=== PATIENT | female | born 1940 | race Caucasian/White ===

== ENCOUNTER → 2020-01-08 08:51 | Outpatient (CLI) | payer MEDICARE, OTHER, SELFPAY ==
[2019-12-26 15:52] VITALS: BMI 29.5
== END ==
PROVIDERS: PCP Internal Medicine; Referring Provider Internal Medicine Cardiovascular Disease; Visit Provider Internal Medicine Cardiovascular Disease
DX: R06.02 Shortness of breath (principal); R53.83 Other fatigue; R00.2 Palpitations; I10 Essential (primary) hypertension
CPT/HCPCS: 93225; 93226

== ENCOUNTER → 2020-01-10 06:50 | Outpatient (CLI) | payer MEDICARE, OTHER, SELFPAY ==
[2019-12-26 15:52] VITALS: BMI 29.5
--- NOTE | 2020-01-10 13:14 | STRESSREP ---
Stress Test Report Exercise myocardial perfusion stress test. 79-year-old lady with a history of chest pain. Stress protocol: Resting EKG demonstrates normal sinus rhythm with a rate of 83 bpm normal intervals are noted resting blood pressure is 172/90 mmHg. The patient exercised according to regular Dwayne protocol for a total duration of 5 minutes. The maximum heart rate attained was 134 bpm which was 94% of maximum predicted heart rate the maximum workload was 7 metabolic equivalents. At rest there were no ST or T wave changes noted suggest ischemia at peak exercise upsloping ST changes were noted with intermediate criteria for ischemia. No clinical angina was noted the test was discontinued due to leg discomfort. The peak blood pressure was 172/90 mmHg. Myocardial perfusion protocol. 11.1 mCi of technetium 99m sestamibi was injected at rest. The patient exercised according to regular Dwayne protocol for a total duration of 5 minutes. At peak exercise 33.4 mCi of technetium 99m sestamibi was injected stress images were obtained stress and rest images were reconstructed and compared in the short axis vertical and horizontal long axis. Gated images were also obtained per Perfusion SPECT analysis: Review of the stress images demonstrate normal uptake of tracer noted in all areas of the myocardium. The resting images similarly demonstrate normal uptake of tracer noted in all areas of the myocardium. No reversibility is noted suggest ischemia no previous infarct is noted. Gated SPECT analysis: The gated ejection fraction is noted to be 74%. Conclusion: Normal exercise myocardial perfusion stress test at a moderate workload. Good functional capacity. No ischemia noted.
== END ==
PROVIDERS: PCP Internal Medicine; Referring Provider Internal Medicine Cardiovascular Disease; Visit Provider Internal Medicine Cardiovascular Disease
DX: R53.83 Other fatigue (principal); R06.00 Dyspnea, unspecified
CPT/HCPCS: 78452; 93017; A9500; A4216

== ENCOUNTER → 2021-12-21 | Outpatient (CLI) | payer MEDICARE, SELFPAY ==
--- NOTE | 2021-12-21 09:43 | RAD_ITS ---
STUDY: X-RAY - ABDOMEN/PELVIS REASON FOR EXAM: Female, 81 years old. Constipation TECHNIQUE: Two AP supine views of the abdomen and pelvis. COMPARISON: None. FINDINGS: Normal visualized lung bases. There is a moderate amount of colonic fecal material. There is no demonstrated free abdominal air. The visualized liver, spleen and kidneys are grossly normal in size and morphology. Peripherally calcified lesion in the left lower quadrant. Normal soft tissue structures. Normal visualized osseous structures. Sitzmarks noted from a previous bowel motility study RAD/Abdomen Single View IMPRESSION: No acute findings, moderate retained stool Electronically Signed: Bernardo Multani MD at 13:35 EDT ,
== END | disposition home or self-care (01) ==
LOC: RAD 09:26
PROVIDERS: PCP Internal Medicine; Referring Provider Internal Medicine Gastroenterology; Visit Provider Internal Medicine Gastroenterology
DX: K59.00 Constipation, unspecified (principal)
CPT/HCPCS: 74018

== ENCOUNTER → 2021-12-23 | Outpatient (CLI) | payer MEDICARE, SELFPAY ==
--- NOTE | 2021-12-23 08:31 | RAD_ITS ---
STUDY: X-RAY - ABDOMEN/PELVIS REASON FOR EXAM: Female, 81 years old. STIZ day 5 TECHNIQUE: Single AP view of the abdomen / pelvis. COMPARISON: None. FINDINGS: There are 6 Sitzmarks still visualized. On the previous study there were 18. On current study there appears to be one within the cecum, 2 within the mid descending colon and 3 within the sigmoid colon. There is an abundance of fecal material throughout the colon. There is no demonstrated free abdominal air. The visualized liver, spleen and kidneys are grossly normal in size and morphology. Stable peripherally calcified entity in the left lower quadrant Normal soft tissue structures. There are diffuse degenerative changes of the visualized lumbar spine. RAD/Abdomen Single View IMPRESSION: On the previous study there were 18 Sitzmarks still present. On current study there are now 6, location as described above. Retained stool throughout the majority of the colon Degenerative bony changes Electronically Signed: Bernardo Multani MD at 14:51 EDT ,
== END | disposition home or self-care (01) ==
LOC: RAD 08:30
PROVIDERS: PCP Internal Medicine; Referring Provider Internal Medicine Gastroenterology; Visit Provider Internal Medicine Gastroenterology
DX: K59.00 Constipation, unspecified (principal)
CPT/HCPCS: 74018

== ENCOUNTER → 2022-03-04 | Outpatient (CLI) | payer MEDICARE, SELFPAY | END | disposition home or self-care (01) | LOC: LABSPEC 11:51 | PROVIDERS: PCP Internal Medicine; Referring Provider Urology; Visit Provider Urology | DX: N39.0 Urinary tract infection, site not specified (principal) | CPT/HCPCS: 87086; 87088 ==

== ENCOUNTER → 2022-08-30 | Outpatient (CLI) | payer BC, SELFPAY ==
--- NOTE | 2022-08-30 11:53 | BRBX_PTH ---
PATIENT: AVA DONALDSON LOC: [facility] U#:[id number] AGE/SX: 81/F ROOM: RE08/30/[address]: Dr. Miah Mart MD : 1940 BED: DIS: 08/30/2022 SPEC #: [id number] RECD: 08/30/22 12:55 STATUS: IAN REThalia #: [id number] TAMELA: 08/30/22 11:[address]: Miah Mart DEPT: SURGICAL PATHOLOGY RECD BY: Iwona Osuna ENTERED: 08/30/22 13:17 SP TYPE: BREAST BX OTHR DR: Dr. Chetna Cazares MD Tissues: Left breast, NOS Procedures: Surgery Specimen Level IV HEADER OPERATION: Left breast stereotactic needle core biopsy PRE-OP DIAGNOSIS: Left breast upper inner quadrant calcifications TISSUE SUBMITTED: Left breast ISCHEMIC TIME: 2 minutes FIXATION TIME: 7.5 hours MICROSCOPIC DIAGNOSIS Left breast, stereotactic biopsy: Fibrosis, benign histiocytic proliferation and associated clustered banal microcalcifications. Fibrocystic change with associated microcalcifications. Focal intraductal hyperplasia without atypia. Minute fragment of skin with no pathologic change. No evidence of malignancy. AM:tanya 08/31/2022 MICROSCOPIC DESCRIPTION Slides are reviewed. GROSS DESCRIPTION Received in fixative is one container labeled with the patient's name and designated left breast. The specimen consists of multiple elongated fragments of fleming-yellow fibroadipose tissue that in aggregate measure 5.0 x 2.5 x 0.3 cm. The entire specimen is submitted in two cassettes. / SJ:tanya 08/30/2022 TC:5 CPT: 25029
--- NOTE | 2022-09-20 12:13 | PCM.OPRPT ---
Problems Associated Problem List Diagnoses (1) Breast calcifications: Report of Operation Date of Procedure: 08/30/22 Pre-Operative Diagnosis: Microcalcifications left breast Post-Operative Diagnosis: Same Surgery/Procedure Performed:: Left stereotactic breast biopsy Surgeon: Miah Mart Type of Anesthesia: Local Description of Procedure: Patient was brought into the mammography unit. Placed in the supine position on the fissure table. Left breast was brought down through the opening. A cc view was obtained. Microcalcifications were identified. ?15 degree views were obtained. I targeted the microcalcifications. I prepped the breast with Betadine. Skin kostas was made. Needle was placed in the prefire position. 2 more stereo views were obtained. The microcalcifications were adequately targeted. I fired the needle. Circumferential 360 degree biopsies were obtained. I x-rayed my specimen. Microcalcifications were identified. I backed the needle off 7 mm and placed a clip. Postoperative films showed the clip to be in good placement. Steri-Strips were applied sterile dressings were applied and the patient tolerated the procedure well. Admit VTE Documentation VTE Present on Admission: No VTE Mechan Device Prophylaxis: None VTE Pharm Prophylaxis ordered?: No
== END | disposition home or self-care (01) ==
PROVIDERS: PCP Internal Medicine; Referring Provider Surgery; Visit Provider Surgery
DX: R92.1 Mammographic calcification found on diagnostic imaging of breast (principal); N62 Hypertrophy of breast
CPT/HCPCS: 19081; 88305

== ENCOUNTER → 2024-02-17 | Outpatient (CLI) | payer MEDICARE, SELFPAY ==
--- NOTE | 2024-02-17 10:33 | RAD_ITS ---
HISTORY: INFLAMMATORY POLYARTHROPATHY. TECHNIQUE: XR Pelvis 1 or 2 Views. COMPARISON: 12/21/2021. FINDINGS: OSSEOUS STRUCTURES: No acute displaced fracture identified. Note that overlapping bowel shadows may obscure osseous detail. Mineralization unremarkable. JOINT SPACES: No dislocation. Mild degenerative changes of the hips. SOFT TISSUES: Chronic calcified structure in the left lower quadrant. Chronic ossification inferior to the left initial tuberosity. RAD/Pelvis 1 or 2 Views IMPRESSION: No acute displaced fracture or dislocation identified. Electronically Signed: Lynne Saini MD at 15:55 EDT ,
[2024-02-17 12:29] LABS: Erythrocyte Sedimentation Rate 9 mm/hr (0-30)
[2024-02-17 12:32] LABS: Absolute Lymphocyte Count 0.99 X10^3/uL (0.83-4.51); Absolute Neutrophil Count 3.8 X10^3/uL (2.0-7.7); Basophil# 0.05 X10^3/uL; Basophil% 0.9 % (0-1); Eosinophils% 5.2 % (0-5); Hematocrit 45.5 % (37-47); Lymphocyte # 0.99 X10^3/ul (0.83-4.51); Lymphocyte % 17.1 % (19-41); Mean Corpuscular Hgb 28.4 pg (27.0-32.0); Mean Platelet Vol. 11.1 fl (6.2-12.0); Monocyte% 10.4 % (0-10); NRBC Flagged by Analyzer 0 % (0-5); Neutrophil # 3.79 X10^3/uL (2.7-7.7); Neutrophil % 65.4 % (47-70); Platelet Count 197 K/mm3 (150-450); RBC Distribution Width CV 13.5 % (11.6-14.6); Red Blood Count 5.29 M/mm3 (4.2-5.4); White Blood Count 5.8 K/mm3 (4.4-11.0)
[2024-02-17 13:24] LABS: AST(SGOT) 22 U/L (15-37); Alanine Aminotransfer ALT/SGPT 21 U/L (13-56); Albumin, Serum 3.9 g/dL (3.2-5.0); Alkaline Phosphatase 53 U/L (45-117); Anion Gap 7 (5-15); BUN 17 mg/dL (7-18); BUN/Creat Ratio 18.1 RATIO (10-20); CRP < 2.90 mg/L (0.0-3.0); Calcium,Total 9.9 mg/dL (8.5-10.1); Chloride 99 mmol/L (98-107); Creatinine, Serum 0.94 mg/dL (0.55-1.02); EST Glomerular Filtration Rate 61 mL/min (>60); Est Glom Filt Rate - Afr Amer 73 mL/min (>60); Globulin 4.1 g/dL (2.2-4.2); Glucose 87 mg/dL (74-106); Potassium 3.8 mmol/L (3.5-5.1); Rheumatoid Factor < 10.0 IU/mL (<15); Sodium Level 133 mmol/L (136-145)
[2024-02-17 13:32] LABS: Hepatitis B Surface Antibody Non-Reactive; Hepatitis B Surface Antigen Non-Reactive (Nonreactive); Hepatitis C Antibody Non-Reactive (Nonreactive)
[2024-02-18 14:09] LABS: CCP IgG Antibodies 5 units (0-19)
[2024-02-21 11:59] LABS: ANTINUCLEAR ANTIBODIES DIRECT Negative (Negative)
== END | disposition home or self-care (01) ==
LOC: MTLAB 10:32
PROVIDERS: PCP Internal Medicine; Referring Provider Internal Medicine Rheumatology; Visit Provider Internal Medicine Rheumatology
DX: M06.4 Inflammatory polyarthropathy (principal); M19.041 Primary osteoarthritis, right hand; M19.042 Primary osteoarthritis, left hand
CPT/HCPCS: 36415; 72170; 80053; 85025; 85652; 86038; 86140; 86200; 86431; 86706; 86803; 87340

== ENCOUNTER → 2024-03-27 | Outpatient (CLI) | payer MEDICARE, SELFPAY ==
[2024-03-27 12:12] LABS: Absolute Neutrophil Count 3.2 X10^3/uL (2.0-7.7); Basophil# 0.05 X10^3/uL; Eosinophil# 0.25 X10^3/uL; Eosinophils% 4.9 % (0-5); Hematocrit 42.2 % (37-47); Hemoglobin 14.3 g/dL (12.0-15.0); Lymphocyte % 19.6 % (19-41); Mean Corp Hgb Conc 33.9 g/dL (32-36); Mean Corpuscular Hgb 28.9 pg (27.0-32.0); Mean Corpuscular Volume 85.3 fL (81-99); Mean Platelet Vol. 11.1 fl (6.2-12.0); Monocyte# 0.57 X10^3/uL; Monocyte% 11.2 % (0-10); NRBC Flagged by Analyzer 0 % (0-5); Neutrophil # 3.19 X10^3/uL (2.7-7.7); Neutrophil % 62.7 % (47-70); Platelet Count 171 K/mm3 (150-450); RBC Distribution Width CV 13.9 % (11.6-14.6); RBC Distribution Width SD 42.6 fl (35.1-43.9); Red Blood Count 4.95 M/mm3 (4.2-5.4); White Blood Count 5.1 K/mm3 (4.4-11.0)
[2024-03-27 12:58] LABS: AST(SGOT) 23 U/L (15-37); Alanine Aminotransfer ALT/SGPT 20 U/L (13-56); Albumin, Serum 3.6 g/dL (3.2-5.0); Alkaline Phosphatase 43 U/L (45-117); Anion Gap 8 (5-15); BUN 15 mg/dL (7-18); BUN/Creat Ratio 16.3 RATIO (10-20); Calcium,Total 9.8 mg/dL (8.5-10.1); Chloride 97 mmol/L (98-107); Creatinine, Serum 0.92 mg/dL (0.55-1.02); EST Glomerular Filtration Rate 62 mL/min (>60); Est Glom Filt Rate - Afr Amer 75 mL/min (>60); Globulin 3.5 g/dL (2.2-4.2); Glucose 108 mg/dL (74-106); Protein, Total 7.1 g/dL (6.4-8.2); Sodium Level 130 mmol/L (136-145)
== END | disposition home or self-care (01) ==
LOC: MTLAB 10:05
PROVIDERS: PCP Internal Medicine; Referring Provider Internal Medicine Rheumatology; Visit Provider Internal Medicine Rheumatology
DX: M06.4 Inflammatory polyarthropathy (principal); M19.041 Primary osteoarthritis, right hand; M19.042 Primary osteoarthritis, left hand; Z79.899 Other long term (current) drug therapy
CPT/HCPCS: 36415; 80053; 85025

== ENCOUNTER → 2024-05-25 | Outpatient (CLI) | payer MEDICARE, SELFPAY ==
[2024-05-25 15:22] LABS: Absolute Lymphocyte Count 0.86 X10^3/uL (0.83-4.51); Absolute Neutrophil Count 3.3 X10^3/uL (2.0-7.7); Basophil# 0.04 X10^3/uL; Basophil% 0.8 % (0-1); Eosinophil# 0.19 X10^3/uL; Eosinophils% 3.8 % (0-5); Hemoglobin 14.4 g/dL (12.0-15.0); Lymphocyte # 0.86 X10^3/ul (0.83-4.51); Mean Corp Hgb Conc 32.7 g/dL (32-36); Mean Corpuscular Hgb 29.3 pg (27.0-32.0); Mean Corpuscular Volume 89.4 fL (81-99); Mean Platelet Vol. 11.4 fl (6.2-12.0); Monocyte# 0.65 X10^3/uL; Monocyte% 12.8 % (0-10); NRBC Flagged by Analyzer 0 % (0-5); Neutrophil # 3.27 X10^3/uL (2.7-7.7); Neutrophil % 64.6 % (47-70); Platelet Count 196 K/mm3 (150-450); RBC Distribution Width SD 48.2 fl (35.1-43.9); Red Blood Count 4.92 M/mm3 (4.2-5.4); White Blood Count 5.1 K/mm3 (4.4-11.0)
[2024-05-25 15:47] LABS: ALB/GLOB Ratio 1.1 RATIO (0.9-2.4); AST(SGOT) 22 U/L (15-37); Alanine Aminotransfer ALT/SGPT 25 U/L (13-56); Albumin, Serum 3.9 g/dL (3.2-5.0); Alkaline Phosphatase 48 U/L (45-117); Anion Gap 6 (5-15); BUN 18 mg/dL (7-18); BUN/Creat Ratio 21.6 RATIO (10-20); Calcium,Total 9.9 mg/dL (8.5-10.1); Chloride 93 mmol/L (98-107); Creatinine, Serum 0.84 mg/dL (0.55-1.02); EST Glomerular Filtration Rate 69 mL/min (>60); Est Glom Filt Rate - Afr Amer 84 mL/min (>60); Globulin 3.7 g/dL (2.2-4.2); Glucose 88 mg/dL (74-106); Potassium 3.7 mmol/L (3.5-5.1); Protein, Total 7.6 g/dL (6.4-8.2); Sodium Level 128 mmol/L (136-145)
== END | disposition home or self-care (01) ==
LOC: MTLAB 11:28
PROVIDERS: PCP Internal Medicine; Referring Provider Internal Medicine Rheumatology; Visit Provider Internal Medicine Rheumatology
DX: M06.4 Inflammatory polyarthropathy (principal); Z79.899 Other long term (current) drug therapy
CPT/HCPCS: 36415; 80053; 85025

== ENCOUNTER 2024-05-30 09:17 | Day surgery (SDC) | payer MEDICARE, SELFPAY ==
[2024-05-30] VITALS (7 sets, daily range): BP systolic 116–157; BP diastolic 65–87; PULSE 72–85; RESP 16; TEMP 36.1–36.5; O2SAT 94–100; BMI 26.5
--- NOTE | 2024-05-30 09:36 | HP.PCM_ITS ---
History and Physical Date of Admission: 05/30/24 OV 04.20.24 Pt has a f/u today for rectal bleeding. Pt reports she has spotting blood today. States she has a hx of hemorrhoids. Has a BM daily. Last colonoscopy was in 2017. Takes Miralax, mineral oil, Citrucel, super greens daily and omeprazole daily. PFSH Medical History Multinodular thyroid Benign paroxysmal positional vertigo, bilateral Osteoarthritis DDD (degenerative disc disease) Vision loss Uterovaginal prolapse, incomplete Essential (primary) hypertension Hyperlipidemia Raynaud disease Meniere disease IBS (irritable bowel syndrome) GERD (gastroesophageal reflux disease) Diverticulosis Surgical History History of bunionectomy History of hysterectomy History of cholecystectomy History of carpal tunnel release Family History Mother HypertensionBrother HypertensionFather Heart disease Social History Smoking Status: Never smoker HPI HPI Chief Complaint: follow up for c/o rectal bleeding Details: AVA DONALDSON, is a 83 F who presents to the office today for FU and for complaints of bleeding per rectum. She reports noted hematochezia 3-4 weeks ago following a BM. She has noticed rectal bleeding while in the shower as well. PCP checked CBC which was normal. She denies abdominal pain, tenesmus, rectal pressure, and cramping associated with bleeding. She denies difficulty chewing and swallowing, heartburn (controlled by omeprazole), bloating. She states that she adjusts her mineral oil intake daily, if she has looser stools, she will back off the oil, and if they're more firm she'll add a little oil that night. She states that she doesn't want a colonoscopy, but knows it is for the best. And asks for an EGD as well to verify continued healing of ulcers. She denies melena, lightheadedness, dizziness associated with blood loss. ROS Const Constitutional: Positive for fatigue, headache(s) and weakness; No fever(s) or weight change Eyes Eyes: No change in vision ENT ENT: Positive for abnormal hearing and headache(s); No difficulty swallowing Resp Respiratory: No cough Cardio Cardiology: Positive for leg pain with exertion; No chest pain at rest or chest pain with exertion Gastro GI: Positive for constipation, diarrhea and excessive flatus; No abdominal pain, belching, bloating, change in bowel habits, change in stool character, coffee ground emesis, cramping, heartburn, difficulty swallowing, feeling full early, incontinent of stools, Vomiting blood/hematemesis, Blood in stool, loose stools, Black,tarry stools, nausea/dyspepsia, pain with swallowing, vomiting or other Genitourinary-Female: No difficulty urinating Musc Musculoskeletal: Positive for abnormal gait, joint pain, back pain, joint swelling, muscle weakness, numbness, stiffness, tingling, Arthritis, sciatica, leg pain at night and leg pain with exertion Skin Skin: Positive for dry skin; No yellowing of the eye or itchy eyes Neuro Neurology: Positive for abnormal gait, abnormal hearing, weakness, headache(s), numbness, tingling and Increased tone in limbs Psych Psychiatric: No anxiety and No depression Endo Endocrine: Positive for fatigue; No weight change Aller/Imm Allergy/Immunologic: No food intolerance or itchy eyes Gerson/Lymp Hematologic/Lymphatic: Positive for easy bruising; No easy bleeding Exam Const General: cooperative, healthy appearing, comfortable and no acute distress Orientation: alert [facility] Head: normal to inspection Ears: hearing grossly impaired bilaterally Nose: external nose normal Face and sinus: normal facial exam and face symmetric Mouth: oral mucosae normal Teeth and gingiva: dentures Eyes General: appearance normal, both eyes and all related structures Sclera: sclerae normal Neck Neck: normal visual inspection and full ROM Neck mass: No Chest Chest palpation & inspection: normal inspection of the chest Resp Effort & Inspection: normal respiratory effort, able to speak in complete sentences and symmetric chest movement GI Inspection: distended Auscultation: normal bowel sounds Palpation: soft Skin General: no rashes or lesions noted Neuro General: patient alert, patient awake, patient oriented x3, oriented and moves all extremities Cognition: normal cognition Speech: speech normal Gait: normal gait Extrem General: full ROM Psych Appearance: well kempt Mental Status: mental status grossly normal Mood: congruent mood Affect: normal affect Speech and Movement: speech and movement normal Attitude: cooperative Thought Process: normal Assessment and Plan Assessment and Plan (1) Rectal hemorrhage: Plan: AVA DONALDSON, is a 83 F who presents to the office today for FU and for complaints of bleeding per rectum. She reports noted hematochezia 3-4 weeks ago following a BM. Differential diagnoses include: ruptured internal hemorrhoid, diverticula, anal fissure, CRC. * colonoscopy to investigate bleeding, last one done 2016 * EGD to investigate GERD * reviewed clear liquid diet 2 days prior to scopes, hold mineral oil, do not hold remaining bowel regimen * call with results I have examined the patient and the H&P has been reviewed. There are no clinical changes since date of exam.
--- NOTE | 2024-05-30 09:56 | PCM.PRE.AN2 ---
ASA Classification* ASA Classification ASA Classification: 2 Assessment & Plan Anesthesia* Anesthesia Assessment Anesthesia Assessment: Discussed sedation and/or anesthesia options, risks, benefits, and alternatives with patient/parents/legal guardian/POA. Questions invited. The patient/parents/legal guardian/POA seems to understand and agrees to proceed with anesthesia plan. Reviewed the physical assessment, medical history, allergy history and patient home medications list prior to surgery/procedure/anesthetic and documented any changes. Performed airway and anesthesia risk assessments. Anesthesia Type Anesthesia Type: MAC Anesthesia Focused Assessment* Temperature: 97.3 F Pulse Rate: 85 Blood Pressure: 157/87 Respiratory Rate: 16 Pulse Ox: 100 Airway Assessment Mouth opens: >3 cm Mallampati Score: II Focused Labs Anesthesia Preop lab: CBC WBC 5.1 K/mm3 (4.4-11.0) 05/25/24 11:31 RBC 4.92 M/mm3 (4.2-5.4) 05/25/24 11:31 Hgb 14.4 g/dL (12.0-15.0) 05/25/24 11:31 Hct 44.0 % (37-47) 05/25/24 11:31 Plt Count 196 K/mm3 (150-450) 05/25/24 11:31 CHEMISTRY Potassium 3.7 mmol/L (3.5-5.1) 05/25/24 11:31 Sodium 128 mmol/L (136-145) L 05/25/24 11:31 BUN 18 mg/dL (7-18) 05/25/24 11:31 Creatinine 0.84 mg/dL (0.55-1.02) 05/25/24 11:31 Glucose 88 mg/dL (74-106) 05/25/24 11:31 COAG Pre-Assessment Diagnosis/Proposed Procedure Planned Operative Procedure(s): COLONOSCOPY/EGD Anesthesia History 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 When Was Last Pacemaker Check QUESTION #4 FULL TEXT: You/Your Family Experience fever (hyperthermia) with Anesthesia Last Oral Intake Last Oral intake: Last Oral Intake NPO since 00:00 05/30/24 09:40 Meds taken in AM with sips of Yes 05/30/24 09:40 water? Meds patient instructed to metoprolol 05/30/24 09:40 take am of surgery PONV PONV - plumbing engineering draftsperson: PONV - plumbing engineering draftsperson Female Yes 05/28/24 15:27 HX of Motion Sickness No 05/28/24 15:27 HX of N/V After Surgery No 05/28/24 15:27 Non-Smoker Yes 05/28/24 15:27 Duration of Surgery greater Yes 05/28/24 15:27 than 60 minutes Number of Risk Factors 3 05/28/24 15:27 PONV Score Moderate Risk 05/28/24 15:27 Height & Weight Height & Weight: Anesthesia: Height & Weight Height 5 ft 3 in 05/30/24 09:40 Weight: 68 kg 05/30/24 09:40 Body Mass Index (BMI) 26.5 05/30/24 09:40 Respiratory Assessment Respiratory Assessment - plumbing engineering draftsperson: Respiratory Tract Infection Hx - plumbing engineering draftsperson Hx Respiratory Tract Infection No 05/28/24 15:27 STOP Sleep Apnea STOP Sleep Apnea - plumbing engineering draftsperson: STOP Sleep Apnea - plumbing engineering draftsperson Hx Hypertension Yes: CONTROLLED ON MED 05/28/24 15:27 Hx Sleep Apnea No 05/28/24 15:27 CPAP BIPAP Do you snore loudly (louder No 05/28/24 15:27 than talking or can be heard Do you often feel tired/ No 05/28/24 15:27 fatigued/ sleepy during daytime? Has anyone observed you stop No 05/28/24 15:27 breathing during sleep? STOP Results Negative 05/28/24 15:27 QUESTION #5 FULL TEXT : Do you snore loudly (louder than talking or can be heard through closed doors)? Tobacco Use History Tobacco Use History - plumbing engineering draftsperson: Tobacco Use History - plumbing engineering draftsperson Tobacco Use Smoking Status Never smoker 05/28/24 15:27 Hx Tobacco Use No 05/28/24 15:27 Years Smoking Packs Smoked per Day Smoking Cessation Date was within the last 15 years Hx Smoking Cessation Date Hx Smoking Cessation Counseling Hematologic Medial History Hematologic Hx - plumbing engineering draftsperson: Hematologic Medical Hx - in store marketing representative Hx of Blood Transfusion No 05/28/24 15:27 Hx of Transfusion in last 3 No 05/28/24 15:27 Months Date of Last Transfusion (if within last 3 months) Ever experience any problems No 05/28/24 15:27 with transfusion(s)? Specify any problems Hx of Preganancy in last 3 No 05/28/24 15:27 Months Nurse Filling Out Transfusion VCHRISTIN 05/28/24 15:27 & Questions: Date: 05/28/24 05/28/24 15:27 Time: 05/28/24 15:27 Patient unable to answer at this time (ie. confused, unrespo /Reproduction History /Reproductive History - plumbing engineering draftsperson: /Reproductive Hx- plumbing engineering draftsperson Hx Now Gestational Age (in weeks): EDC: Hx Hx Para Hx Section SAB PFSH Medical History Wears dentures Wears hearing aid Wears glasses Cancer Arthritis High cholesterol Back pain History of hiatal hernia History of diverticulitis History of IBS Gastric reflux Non-smoker Shortness of breath on exertion History of pain when walking History of edema Hypertension History of echocardiogram History of stress test History of Holter monitoring Cardiology follow-up encounter Multinodular thyroid Benign paroxysmal positional vertigo, bilateral Osteoarthritis DDD (degenerative disc disease) Vision loss Uterovaginal prolapse, incomplete Essential (primary) hypertension Hyperlipidemia Raynaud disease Meniere disease IBS (irritable bowel syndrome) GERD (gastroesophageal reflux disease) Diverticulosis Home Medications ?Medication ?Instructions ?Recorded ?Last Taken ?Type aspirin 81 mg tablet,delayed 81 mg PO DAILY 12/26/19 05/25/24 History release (Adult Aspirin Regimen) calcitriol 0.25 mcg capsule 0.25 mcg PO DAILY 12/26/19 Unknown History lovastatin 40 mg tablet 40 mg PO QPM 12/26/19 Unknown History metoprolol succinate 50 mg 50 mg PO DAILY 12/26/19 05/30/24 History tablet,extended release 24 hr multivitamin 1 tab PO DAILY 12/26/19 05/25/24 History nortriptyline 25 mg capsule 25 mg PO QHS 12/26/19 Unknown History (Pamelor) omega-3 fatty acids 1,000 mg 1,000 mg PO DAILY 12/26/19 05/15/24 History capsule (Fish Oil Concentrate) omeprazole 20 mg capsule,delayed 20 mg PO BID 12/26/19 Unknown History release polyethylene glycol 3350 17 17 g PO DAILY 12/26/19 Unknown History gram/dose oral powder (Miralax) clotrimazole-betamethasone 1 1 applic topical BID 12/23/20 Unknown History %-0.05 % topical cream lisinopril 20 1 tab PO BID #180 tabs 02/06/21 Unknown Rx mg-hydrochlorothiazide 12.5 mg tablet methylcellulose (laxative) 500 mg 500 mg PO DAILY 09/06/23 Unknown History tablet (Citrucel) mineral oil 15 ml PO QHS 09/06/23 Unknown History peg 3350-electrolytes 236 240 ml PO Q10M #4,000 mL 04/20/24 Unknown Rx gram-22.74 gram-6.74 gram-5.86 gram solution (Golytely) cholecalciferol (vitamin D3) 50 50 mcg PO DAILY 05/28/24 Unknown History mcg (2,000 unit) capsule (Vitamin D3) estradiol 0.01% (0.1 mg/gram) 1 appful vaginal MOFR 05/28/24 Unknown History vaginal cream folic acid 1 mg tablet 2 mg PO DAILY 05/28/24 Unknown History leucovorin calcium 15 mg tablet 15 mg PO WE 05/28/24 Unknown History methotrexate sodium 2.5 mg tablet 12.5 mg PO QWEEK 05/28/24 Unknown History Allergy/AdvReac Type Severity Reaction Status Date / Time Penicillins Allergy hives Verified 05/30/24 09:31 alendronate sodium (Fosamax) AdvReac Unknown Verified 05/30/24 09:31 celecoxib (From Celebrex) AdvReac Unknown Verified 05/30/24 09:31 cetirizine (From Zyrtec) AdvReac Unknown Verified 05/30/24 09:31 codeine AdvReac Unknown Verified 05/30/24 09:31 niacin AdvReac Unknown Verified 05/30/24 09:31 rofecoxib (From Vioxx) AdvReac Unknown Verified 05/30/24 09:31 Sulfa (Sulfonamide AdvReac intolerance Verified 05/30/24 09:31 Antibiotics) Family History Mother Hypertension Brother Hypertension Father Heart disease Surgical History Hx of tubal ligation History of carpal tunnel release of both wrists History of bunionectomy History of hysterectomy History of cholecystectomy History of carpal tunnel release Social History Smoking Status: Never smoker Review of Systems (Anesthesia) ROS Narrative System reviewed and no additional complaints, except as documented.
--- NOTE | 2024-05-30 10:15 | IMM_PTH ---
PATIENT: AVA DONALDSON LOC: EN U#:[id number] AGE/SX: 83/F ROOM: RE05/30/[address]: Dr. Gavino Jay DO : 1940 BED: DIS: 05/30/2024 SPEC #: [id number] RECD: 05/31/24 08:44 STATUS: IAN REQ #: [id number] TAMELA: 05/30/24 10:[address]: Gavino Jay DEPT: IMMUNOHISTOCHEMISTRY RECD BY: Emile Brown ENTERED: 05/31/24 08:44 SP TYPE: IMMUNO OTHR DR: Dr. Chetna Cazares MD Tissues: A - Gastric mucous membrane Procedures: H Pylori (initial) PHYSICIAN & INSTITUTION [place] [address] SPECIMEN INFORMATION: Tissue Source: A - Gastric body biopsy Clinical Info: Rectal hemorrhage Specimen Number: [id number] CPT code: 59187 METHODOLOGY: Deparaffinized sections of prefer/formalin-fixed tissue or PAP/DQ stained slides are incubated with monoclonal/polyclonal antibodies/oligonucleotide probes. Localization is made via biotin free immunoperoxidase method. Appropriate controls are performed and reacted as expected. Results on target cell population are indicated in the following table: RESULTS: ANTIBODY / CLONE RESULT Block A H Pylori (polyclonal) negative These tests were developed and their performance characteristics determined by [facility]. They may not have been cleared or approved by the U.S. Food and Drug Administration. The FDA has determined that such clearance or approval is not necessary. The above immunohistochemical/dualISH markers are ordered and reviewed by the Pathologist. INTERPRETATION: A. Gastric body, biopsy: Negative for Helicobacter pylori organisms. 06/01/2024
--- NOTE | 2024-05-30 10:15 | EGD_PTH ---
PATIENT: AVA DONALDSON LOC: EN U#:[id number] AGE/SX: 83/F ROOM: RE05/30/[address]: Dr. Gavino Jay DO : 1940 BED: DIS: 05/30/2024 SPEC #: [id number] RECD: 05/30/24 14:02 STATUS: IAN AURE #: [id number] TAMELA: 05/30/24 10:[address]: Gavino Jay DEPT: SURGICAL PATHOLOGY RECD BY: Iwona Osuna ENTERED: 05/31/24 08:13 SP TYPE: EGD BIOPSY OT DR: Dr. Chetna Cazares MD Tissues: A - Gastric mucous membrane B - Ileum, NOS C - Cecum, NOS D - Sigmoid colon biopsy E - Rectum, NOS Procedures: Special Stain Group I Surgery Specimen Level IV AFB Stain (control) GMS Stain (control) HEADER OPERATION: Colonoscopy with biopsy, EGD with biopsy PRE-OP DIAGNOSIS: Rectal hemorrhage TISSUE SUBMITTED: A- Gastric body biopsy, B- Terminal ileum biopsy, C- Cecum biopsy, D- Sigmoid colon biopsy, E- Rectal anal verge biopsy MICROSCOPIC DIAGNOSIS A. Gastric body, biopsy: Mild to moderate chronic gastritis. Focal non-necrotizing granuloma formation. See comment. B. Terminal ileum, biopsy: Fragments of small intestinal mucosa, no pathologic diagnosis. C. Cecum, biopsy: Fragments of colonic mucosa, no pathologic diagnosis. D. Sigmoid colon, biopsy: Fragments of colonic mucosa, no pathologic diagnosis. E. Rectal anal verge, biopsy: Fragments of colonic mucosa with focal hyperplastic and reactive changes. . 06/01/2024 COMMENT A. The results of immunohistochemistry for Helicobacter pylori will be reported separately ([id number]). Special stains for acid fast bacilli and fungi are negative for organisms; matched controls are appropriate. Correlation with clinical, endoscopic findings and appropriate follow up are necessary. MICROSCOPIC DESCRIPTION Slides are reviewed. GROSS DESCRIPTION A. Received in fixative is one container labeled with the patient's name and designated Gastric body biopsy. The specimen consists of two irregular fragments of light fleming soft tissue that in aggregate measure 0.6 x 0.3 x 0.1 cm. The specimen is totally submitted in one cassette. B. Received in fixative is one container labeled with the patient's name and designated Terminal ileum biopsy. The specimen consists of two irregular fragments of light fleming soft tissue that in aggregate measure 0.6 x 0.3 x 0.1 cm. The specimen is totally submitted in one cassette. C. Received in fixative is one container labeled with the patient's name and designated Cecum biopsy. The specimen consists of two irregular fragments of light fleming soft tissue that in aggregate measure 0.4 x 0.2 x 0.1 cm. The specimen is totally submitted in one cassette. D. Received in fixative is one container labeled with the patient's name and designated Sigmoid colon biopsy. The specimen consists of multiple irregular fragments of light fleming soft tissue that in aggregate measure 1.0 x 0.3 x 0.1 cm. The specimen is totally submitted in one cassette. E. Received in fixative is one container labeled with the patient's name and designated Rectal anal verge biopsy. The specimen consists of two irregular fragments of light fleming soft tissue that in aggregate measure 0.6 x 0.3 x 0.1 cm. The specimen is totally submitted in one cassette. SJ.mr 05/31/2024 TC:3 CPT:67068p4,24929o7
--- NOTE | 2024-05-30 11:29 | PCM.POST.ANE ---
Anesthesia: Postop Eval I Current Vital Signs Temperature: 97 F Pulse Rate: 77 Blood Pressure: 116/66 Respiratory Rate: 16 Pulse Ox: 97 Oxygen Delivery Method: Room Air Assessment Airway patent: Yes Spontaneous unlabored respirations: Yes Mental status: Asleep nausea: No Vomiting: No Anesthesia Complication: No Fluid Hydration Crystalloid volume administer (ml): 60 Total IV fluid infused: 60 Progress Note Anesthesia document: Postop Eval 1 completed: Yes
--- NOTE | 2024-05-30 11:30 | OP.CCLET_ITS ---
05/30/2024 Chetna Cazares [address] [place] [address] Re : Upper GI endoscopy procedure for Concepcion Kaye Dear Dr. Cazares This procedure was performed on Thursday, May 30, 2024. My impressions and recommendations are as follows: Impressions : - Normal esophagus. - Non-bleeding gastric ulcer with no stigmata of bleeding. Biopsied. - No gross lesions in the first portion of the duodenum. Recommendations : - Discharge patient to home. - Resume previous diet. - Use sucralfate tablets 1 gram PO QID for 8 weeks. - Continue present medications. My findings are described in the full procedure note, which is enclosed. If I can be of further assistance, please feel free to contact me at . Sincerely, Gavino Friend, 05/30/2024 11:29:50 AM This report has been signed electronically.
--- NOTE | 2024-05-30 11:30 | OP.EGD_ITS ---
Patient Name: Concepcion Kaye Procedure Date: 05/30/2024 10:44 AM Date of : 1940 Age: 83 Procedure: Upper GI endoscopy Indications: Peptic ulcer Providers: Gavino Jay DO Referring MD: Gavino Jay DO Medicines: Monitored Anesthesia Care Patient Profile: This is an 83 year old female. Refer to note in patient chart for documentation of history and physical. Patient has symptoms of chronic epigastric abdominal pain. Complications: No immediate complications. Procedure: Pre-Anesthesia Assessment: - Prior to the procedure, a History and Physical was performed, and patient medications and allergies were reviewed. The patient is competent. The risks and benefits of the procedure and the sedation options and risks were discussed with the patient. All questions were answered and informed consent was obtained. Patient identification and proposed procedure were verified by the physician in the pre-procedure area. Mental Status Examination: normal. Airway Examination: normal oropharyngeal airway and neck mobility. Respiratory Examination: clear to auscultation. CV Examination: normal. Prophylactic Antibiotics: The patient does not require prophylactic antibiotics. Prior Anticoagulants: The patient has taken no anticoagulant or antiplatelet agents except for NSAID medication. ASA Grade Assessment: II - A patient with mild systemic disease. After reviewing the risks and benefits, the patient was deemed in satisfactory condition to undergo the procedure. The anesthesia plan was to use monitored anesthesia care (MAC). Immediately prior to administration of medications, the patient was re-assessed for adequacy to receive sedatives. The heart rate, respiratory rate, oxygen saturations, blood pressure, adequacy of pulmonary ventilation, and response to care were monitored throughout the procedure. The physical status of the patient was re-assessed after the procedure. After obtaining informed consent, the endoscope was passed under direct vision. Throughout the procedure, the patient's blood pressure, pulse, and oxygen saturations were monitored continuously. The colonoscope was introduced through the mouth, and advanced to the second part of duodenum. The upper GI endoscopy was accomplished without difficulty. The patient tolerated the procedure well. Scope In: 10:50:03 AM Scope Out: 10:53:28 AM Total Procedure Duration Time 0 hours 3 minutes 25 seconds Findings: The examined esophagus was normal. One non-bleeding linear gastric ulcer with no stigmata of bleeding was found in the gastric body. The lesion was 6 mm in largest dimension. Biopsies were taken with a cold forceps for histology. Verification of patient identification for the specimen was done. Estimated blood loss was minimal. No gross lesions were noted in the first portion of the duodenum. Impression: - Normal esophagus. - Non-bleeding gastric ulcer with no stigmata of bleeding. Biopsied. - No gross lesions in the first portion of the duodenum. Recommendation: - Discharge patient to home. - Resume previous diet. - Use sucralfate tablets 1 gram PO QID for 8 weeks. - Continue present medications. Procedure Code(s): --- Professional --- 51235, Esophagogastroduodenoscopy, flexible, transoral; with biopsy, single or multiple CPT copyright 2021 [employer]. All rights reserved. The codes documented in this report are preliminary and upon plastic products sales representative review may be revised to meet current compliance requirements. Gavino Jay DO 05/30/2024 11:29:50 AM This report has been signed electronically. Number of Addenda: 0 Note Initiated On: 05/30/2024 10:44 AM
--- NOTE | 2024-05-30 11:37 | OP.CCLET_ITS ---
05/30/2024 Chetna Cazares [address] [place] [address] Re : Colonoscopy procedure for Concepcion Kaye Dear Dr. Cazares This procedure was performed on Thursday, May 30, 2024. My impressions and recommendations are as follows: Impressions : - Bleeding external and internal hemorrhoids. Treated with thermal therapy. - Diverticulosis in the recto-sigmoid colon and in the sigmoid colon. - Congested mucosa in the recto-sigmoid colon, in the sigmoid colon and in the cecum. Biopsied. - The examined portion of the ileum was normal. Biopsied. Recommendations : - Discharge patient to home. - Resume previous diet today. - Repeat colonoscopy is recommended for surveillance. The colonoscopy date will be determined after pathology results from today's exam become available for review. - Continue present medications. My findings are described in the full procedure note, which is enclosed. If I can be of further assistance, please feel free to contact me at . Sincerely, Gavino Jay, 05/30/2024 11:36:56 AM This report has been signed electronically.
--- NOTE | 2024-05-30 11:37 | OP.COLON_ITS ---
Patient Name: Concepcion Kaye Procedure Date: 05/30/2024 10:53 AM Date of : 1940 Age: 83 Procedure: Colonoscopy Indications: Chronic diarrhea, Hematochezia Providers: Gavino Jay DO Referring MD: Gavino Jay DO Medicines: Monitored Anesthesia Care Patient Profile: This is an 83 year old female. Refer to note in patient chart for documentation of history and physical. Patient has symptoms of chronic epigastric abdominal pain. Last Colonoscopy: date unknown. Unable to locate last colonoscopy report. Complications: No immediate complications. Procedure: Pre-Anesthesia Assessment: - Prior to the procedure, a History and Physical was performed, and patient medications and allergies were reviewed. The patient is competent. The risks and benefits of the procedure and the sedation options and risks were discussed with the patient. All questions were answered and informed consent was obtained. Patient identification and proposed procedure were verified by the physician in the pre-procedure area. Mental Status Examination: normal. Airway Examination: normal oropharyngeal airway and neck mobility. Respiratory Examination: clear to auscultation. CV Examination: normal. Prophylactic Antibiotics: The patient does not require prophylactic antibiotics. Prior Anticoagulants: The patient has taken no anticoagulant or antiplatelet agents except for NSAID medication. ASA Grade Assessment: II - A patient with mild systemic disease. After reviewing the risks and benefits, the patient was deemed in satisfactory condition to undergo the procedure. The anesthesia plan was to use monitored anesthesia care (MAC). Immediately prior to administration of medications, the patient was re-assessed for adequacy to receive sedatives. The heart rate, respiratory rate, oxygen saturations, blood pressure, adequacy of pulmonary ventilation, and response to care were monitored throughout the procedure. The physical status of the patient was re-assessed after the procedure. After I obtained informed consent, the scope was passed under direct vision. Throughout the procedure, the patient's blood pressure, pulse, and oxygen saturations were monitored continuously. The colonoscope was introduced through the anus and advanced to the terminal ileum. The colonoscopy was performed without difficulty. The patient tolerated the procedure well. The quality of the bowel preparation was adequate. Anatomical landmarks were photographed. Scope In: 10:55:04 AM Scope Withdrawal Time 0 hours 19 minutes 15 seconds Scope Out: 11:21:09 AM Total Procedure Duration Time 0 hours 26 minutes 5 seconds Findings: The perianal and digital rectal examinations were normal. Bleeding external and internal hemorrhoids were found during retroflexion. The hemorrhoids were Grade II (internal hemorrhoids that prolapse but reduce spontaneously). Destruction of internal hemorrhoids using argon plasma at 0.3 liters/minute and 50 arce was successful. Estimated blood loss was minimal. Multiple small and large-mouthed diverticula were found in the recto-sigmoid colon and sigmoid colon. An area of mildly congested mucosa was found in the recto-sigmoid colon, in the sigmoid colon and in the cecum. Biopsies were taken with a cold forceps for histology. Verification of patient identification for the specimen was done. Estimated blood loss was minimal. The terminal ileum appeared normal. Biopsies were taken with a cold forceps for histology. Verification of patient identification for the specimen was done. Estimated blood loss was minimal. Impression: - Bleeding external and internal hemorrhoids. Treated with thermal therapy. - Diverticulosis in the recto-sigmoid colon and in the sigmoid colon. - Congested mucosa in the recto-sigmoid colon, in the sigmoid colon and in the cecum. Biopsied. - The examined portion of the ileum was normal. Biopsied. Recommendation: - Discharge patient to home. - Resume previous diet today. - Repeat colonoscopy is recommended for surveillance. The colonoscopy date will be determined after pathology results from today's exam become available for review. - Continue present medications. Procedure Code(s): --- Professional --- 86278, 59, Colonoscopy, flexible; with biopsy, single or multiple 27244, 51, Destruction of internal hemorrhoid(s) by thermal energy (eg, infrared coagulation, cautery, radiofrequency) CPT copyright 2021 [employer]. All rights reserved. The codes documented in this report are preliminary and upon mechanical systems design engineer review may be revised to meet current compliance requirements. Gavino Jay DO 05/30/2024 11:36:56 AM This report has been signed electronically. Number of Addenda: 0 Note Initiated On: 05/30/2024 10:53 AM
--- NOTE | 2024-05-30 11:52 | PCM.POSTANE2 ---
Anesthesia Postop Eval I Sum Postop Eval Completion status Anesthesia document: Postop Eval 1 completed: Yes Anesthesia Postop Eval I Summary Anesthesia Postop Eval I Summary: Anesthesia Postop Eval I: Assessment Summary Airway patent Yes 05/30/24 11:30 [email or web address] Spontaneous unlabored Yes 05/30/24 11:30 [email or web address] respirations Mental status Asleep 05/30/24 11:30 [email or web address] nausea No 05/30/24 11:30 [email or web address] Vomiting No 05/30/24 11:30 [email or web address] Anesthesia Postop Eval I: Fluid Summary Crystalloid volume administer 60 05/30/24 11:30 [email or web address] (ml) Colloids volume administered ( ml) Blood Product volume administered (ml) Total IV fluid infused 60 05/30/24 11:30 [email or web address] Anesthesia Postop Eval I: Summary Notes Anesthesia Complication No 05/30/24 11:30 [email or web address] Anesthesia Complication Comment: Post-operative progress note Anesthesia: Postop Eval II Evaluation Mental status: Awake Pain Level: 0 nausea: No Vomiting: No
== END 2024-05-30 12:19 | disposition home or self-care (01) ==
LOC: EN 09:21 → AC 09:22
PROVIDERS: PCP Internal Medicine; Referring Provider Internal Medicine Gastroenterology; Visit Provider Internal Medicine Gastroenterology
PROC: 0DJD8ZZ Inspection of Lower Intestinal Tract, Via Natural or Artificial Opening Endoscopic (ICD-10-PCS; CPT 45378; principal; 2024-05-30 10:10)
DX: K29.50 Unspecified chronic gastritis without bleeding (principal); K57.30 Diverticulosis of large intestine without perforation or abscess without bleeding; I10 Essential (primary) hypertension; K64.4 Residual hemorrhoidal skin tags; K63.89 Other specified diseases of intestine; K25.9 Gastric ulcer, unspecified as acute or chronic, without hemorrhage or perforation; K64.1 Second degree hemorrhoids; Z79.82 Long term (current) use of aspirin; Z79.899 Other long term (current) drug therapy
CPT/HCPCS: 43239; 45380; 46930; 88305; 88312; 88342; A4216; J2405

== ENCOUNTER → 2025-01-03 | Outpatient (CLI) | payer MEDICARE, SELFPAY ==
--- OUTSIDE RECORDS SUMMARY | 2025-01-03 06:33 | XMS RPT_ITS | CCD ---
Author Organization [facility] Care Team Providers Care Net Architect Name Role Phone Preston Haney MD Primary Care Provider Dr. Preston Haney Primary Care Provider Dr. Preston Haney Referring Provider Friend, Dr. Mancia Attending Provider Preston Haney MD Primary Care Provider Preston Haney MD Primary Care Provider BLANCA MUNOZ Attending Unavailable PRESTON HANEY Referring Unavailable PRESTON HANEY Primary Care Unavailable BLANCA MUNOZ Attending Unavailable PRESTON HANEY Referring Unavailable PRESTON HANEY Primary Care Unavailable BLANCA MUNOZ Attending Unavailable PRESTON HANEY Referring Unavailable PRESTON HANEY Primary Care Unavailable Dr. Preston Haney Primary Care Provider Dr. Preston Haney Referring Provider John FEATHER CUTTING MACHINE FEEDER, FEATHER CUTTING MACHINE FEEDER-C Janeth Mott Attending Provider Preston Haney MD Primary Care Provider Hoff RADARMAN.HOLISTIC NUTRITIONIST, Elisabeth Unavailable Herman RADARMAN.RAIL EXPRESS CLERK, Byron Unavailable Herman RADARMAN.RAIL EXPRESS CLERK, Byron Unavailable Herman RADARMAN.RAIL EXPRESS CLERK, Byron Unavailable Samuel Curiel Unavailable Hoff RADARMAN.HOLISTIC NUTRITIONIST, Elisabeth Unavailable Hoff RADARMAN.HOLISTIC NUTRITIONIST, Elisabeth Unavailable JV BROOKS Attending Unavailable ABELINO, LEXIS Referring Unavailable TALAMPAS, PRESTON D Primary Care Unavailable ELIA OLIVARES Attending Unavailable ABELINO, LEXIS Referring Unavailable TALAMPAS, PRESTON D Primary Care Unavailable TALAMPAS, PRESTON D Referring Unavailable TALAMPAS, PRESTON D Primary Care Unavailable BYRON SUTTON Attending Unavailable TALAMPAS, PRESTON D Primary Care Unavailable BYRON SUTTON Attending Unavailable SELF Referring Unavailable TALAMPAS, PRESTON D Primary Care Unavailable HERMANBYRON Referring Unavailable TALAMPAS, PRESTON D Primary Care Unavailable TALAMPAS, PRESTON D Attending Unavailable SELF Referring Unavailable TALAMPAS, PRESTON D Primary Care Unavailable TALAMPAS, PRESTON D Referring Unavailable TALAMPAS, PRESTON D Primary Care Unavailable ABELINO, LEXIS Attending Unavailable HOFFCARLYI Referring Unavailable TALAMPAS, PRESTON D Primary Care Unavailable ABELINO, LEXIS Referring Unavailable TALAMPAS, PRESTON D Primary Care Unavailable ABELINO, LEXIS Referring Unavailable TALAMPAS, PRESTON D Primary Care Unavailable BYRON SUTTON Attending Unavailable HOFF, ELISABETH Referring Unavailable TALAMPAS, PRESTON D Primary Care Unavailable ABELINO, LEXIS Attending Unavailable ABELINO, LEXIS Referring Unavailable TALAMPAS, PRESTON D Primary Care Unavailable HERMANBYRON Referring Unavailable TALAMPAS, PRESTON D Primary Care Unavailable Adelina Marques Attending Unavailable Talampas, Preston D Primary Care Unavailable Talampas, Preston D Referring Unavailable Friend, Gavino Referring Unavailable Talampas, Preston D Primary Care Unavailable Friend, Gavino Consulting Unavailable Friend, Gavino Attending Unavailable Friend, Gavino Attending Unavailable Hubert ePreira Attending Unavailable Talampas, Preston D Referring Unavailable Talampas, Preston D Primary Care Unavailable Friend, Gavino Attending Unavailable Friend, Gavino Referring Unavailable Talampas, Preston D Primary Care Unavailable Friend, Gavino Attending Unavailable Vellanki, Jessica Attending Unavailable Vellanki, Jessica Referring Unavailable Talampas, Preston D Primary Care Unavailable WenceslaolanDenys neilma Attending Unavailable Vellanki, Jessica Referring Unavailable Talampas, Preston D Primary Care Unavailable Vellanki Jessica Attending Unavailable Vellanki, Jessica Referring Unavailable Talampas, Preston D Primary Care Unavailable Kelli, [place] Attending Unavailable Kelli, Hubert Referring Unavailable Preston Haney Primary Care Unavailable Allergies Allergy Classification Reported Allergen(s) Allergy Type Date of Onset Reaction(s) Facility Alendronate (1 source) Alendronate Drug Allergy 6 Intolerance [facility] Cetirizine (1 source) Cetirizine Drug Allergy 6 Intolerance [facility] Niacin (1 source) Niacin Drug Allergy 6 Intolerance [facility] NITROFURANTOIN, MACROCRYSTALS / Nitrofurantoin, Monohydrate (1 source) NITROFURANTOIN, MACROCRYSTALS / Nitrofurantoin, Monohydrate Drug Allergy 1 Intolerance [facility] Work Phone: NSAIDs (1 source) celecoxib Drug Allergy 6 [facility] Work Phone: Opioid Agonists (1 source) Codeine Drug Allergy 6 Intolerance [facility] Penicillins (antibiotic) (1 source) Penicillins Drug Allergy 6 Hives [facility] Pollen (1 source) Grass pollen Substance Allergy 8 [facility] rofecoxib (1 source) rofecoxib Drug Allergy 6 Intolerance [facility] Sulfonamides (antibiotic) (1 source) Sulfonamides (Antibiotic) Drug Allergy 6 Intolerance [facility] (20 sources) Alendronate; Translations: [ALENDRONATE SODIUM] Drug Allergy 6 Intolerance [facility] (20 sources) celecoxib; Translations: [CELECOXIB] Drug Allergy 6 [facility] Work Phone: (20 sources) Cetirizine; Translations: [CETIRIZINE HCL] Drug Allergy 6 Intolerance [facility] (20 sources) Codeine; Translations: [CODEINE] Drug Allergy 6 Intolerance [facility] (20 sources) Grass pollen; Translations: [GRASS POLLEN] Propensity to adverse reactions 8 [facility] Work Phone: (20 sources) Niacin; Translations: [NIACIN] Drug Allergy 6 Intolerance [facility] (20 sources) NITROFURANTOIN, MACROCRYSTALS / Nitrofurantoin, Monohydrate; Translations: [NITROFURANTOIN MONOHYD/M-CRYST] Drug Allergy 1 Intolerance [facility] (17 sources) Penicillins; Translations: [PENICILLINS] Propensity to adverse reactions 6 [facility] Work Phone: (20 sources) rofecoxib; Translations: [ROFECOXIB] Drug Allergy 6 Intolerance [facility] (20 sources) Sulfonamides (Antibiotic); Translations: [SULFA (SULFONAMIDE ANTIBIOTICS)] Drug Intolerance 6 Intolerance [facility] (3 sources) Cetirizine Drug Allergy 1 Unknown [facility] (20 sources) Penicillins Propensity to adverse reactions 6 [facility] Work Phone: (2 sources) Penicillins Allergy to substance 1 [facility] (2 sources) Sulfonamides (Antibiotic) Propensity to adverse reactions 1 intolerance [facility] (20 sources) Sucralfate; Translations: [SUCRALFATE] Drug Allergy 5 [facility] Work Phone: (6 sources) Penicillins Propensity to adverse reactions 6 [facility] (1 source) Alendronate Drug Allergy 5 [facility] Rep[facility] (1 source) celecoxib Drug Allergy 5 [facility] Rep[facility] (1 source) Cetirizine Drug Allergy 5 [facility] Rep[facility] (1 source) Codeine Drug Allergy 5 [facility] Rep[facility] (1 source) Niacin Drug Allergy 5 [facility] Rep[facility] (1 source) Nitrofurantoin Drug Allergy 5 [facility] Rep[facility] (1 source) Penicillins Drug allergy (disorder) 5 [facility] Rep[facility] (1 source) rofecoxib Drug Allergy 5 [facility] Rep[facility] (1 source) Sucralfate Drug Allergy 5 [facility] Repository (1 source) Sulfonamides (Antibiotic) Drug allergy (disorder) [facility] Repository Medications Current Medications Medication Drug Class(es) Dates Sig (Normalized) Sig (Original) amLODIPine 5 mg oral tablet (1 source) Dihydropyridine Calcium Channel Gregor Start: 11-14-2024 take 1 tablet by mouth once daily amLODIPine (NORVASC) 5 mg tablet Take 1 tablet by mouth once daily. 11/14/2024 Active benoxinate hydrochloride 4 mg/ml / fluorescein sodium 2.5 mg/ml ophthalmic solution (1 source) Diagnostic Dye Start: 10-08-2021 End: 10-08-2021 fluorescein-eloisa xinate 0.25-0.4 % 1 Drop (FLURESS) betamethasone 0.5 mg/ml / clotrimazole 10 mg/ml topical cream (3 sources) Azole Antifungal, Corticosteroid Start: 12-23-2020 Clotrimazole-Bet amethasone Active 1 APPLIC TOPICAL TWICE A DAY December 22, 2020 11:00pm calcitriol 0.78478 mg oral capsule (20 sources) Vitamin D3 Analog Start: 07-13-2023 End: 07-20-2024 take 1 capsule by mouth once daily calcitriol (ROCALTROL) 0.25 mcg capsule Take 1 capsule by mouth once daily. 90 capsule 3 07/20/2024 Active Start: 12-26-2019 End: 07-14-2022 take 1 capsule by mouth once daily calcitriol (ROCALTROL) 0.25 mcg capsule Take 1 capsule by mouth once daily. 90 capsule 3 06/30/2021 07/14/2022 Discontinued Comment on above: Take 1 capsule by [facility] once daily. calcium carbonate 1500 mg oral tablet (8 sources) take 1 tablet by mouth once daily calcium carbonate (CALTRATE) 600 mg calcium (1,500 mg) tab Take 1,200 mg by mouth once daily. Active cephalexin 500 mg oral capsule (6 sources) Cephalosporin Antibacterial Start: 2 End: 2 take 1 capsule by mouth twice daily cephALEXin (KEFLEX) 500 mg capsule Take 1 capsule by mouth twice daily for 7 days. 14 capsule 0 06/11/2022 06/18/2022 Active Start: 02-16-2022 End: 02-21-2022 take 1 capsule by mouth twice daily cephALEXin (KEFLEX) 500 mg capsule Take 1 capsule by mouth twice daily for 5 days. 10 capsule 0 02/16/2022 02/21/2022 Active Start: 01-24-2022 End: 01-31-2022 take 1 capsule by mouth twice daily cephALEXin (KEFLEX) 500 mg capsule Take 1 capsule by mouth twice daily for 7 days. 14 capsule 0 01/24/2022 01/31/2022 Active Start: 12-18-2021 End: 12-25-2021 take 1 capsule by mouth twice daily cephALEXin (KEFLEX) 500 mg capsule Take 1 capsule by mouth twice daily for 7 days. 14 capsule 0 12/18/2021 12/25/2021 Active Comment on above: Take 1 capsule by [facility] twice daily for 7 days. Take 1 capsule by [facility] twice daily for 5 days. cholecalciferol 0.05 mg oral tablet (20 sources) Vitamin D take 1 tablet by mouth once daily cholecalciferol (VITAMIN D3) 50 mcg (2,000 unit) tablet Take 2,000 Units by mouth once daily. Active Comment on above: Take 2,000 Units by mouth once daily. ciprofloxacin 250 mg oral tablet (3 sources) Quinolone Antimicrobial Start: End: take 1 tablet by mouth twice daily ciprofloxacin HCl (CIPRO) 250 mg tablet Take 1 tablet by mouth twice daily for 5 days. 10 tablet 0 11/28/2021 12/03/2021 Active Comment on above: Take 1 tablet by [facility] twice daily for 5 days. estradiol 0.1 mg/ml vaginal cream (20 sources) Estrogen Start: 024 End: estradiol (ESTRACE) 0.01 % (0.1 mg/gram) vaginal cream Indications: Vaginal atrophy Use 1 g vaginally daily at bedtime for 14 days, THEN 1 g two times a week. 42.5 g 2 08/01/2023 Active Start: 07-13-2023 End: 07-28-2023 estradiol (ESTRACE) 0.01 % ( 0.1 mg/gram) vaginal cream Indications: Vaginal atrophy Use 1 g vaginally daily at bedtime for 14 days, THEN 1 g two times a week. 42.5 g 2 07/13/2023 07/28/2023 Discontinued Start: 08-25-2021 End: 09-08-2022 estradiol (ESTRACE) 0.01 % ( 0.1 mg/gram) vaginal cream Indications: Vaginal atrophy Use 1 g vaginally daily at bedtime for 14 days, THEN 1 g two times a week. 42.5 g 2 08/25/2021 Active Comment on above: Use 1 g vaginally da ty at bedtime for 14 days, THEN 1 g two times a week. hydroCHLOROthiazide 12.5 mg / lisinopril 20 mg oral tablet (20 sources) Thiazide Diuretic, Angiotensin Converting Enzyme Inhibitor Start: End: take 1 tablet by mouth twice daily lisinopril-hyd roCHLOROthiazi de (ZESTORETIC) 20-12.5 mg per tablet Take 1 tablet by mouth two times a day. 180 tablet 3 07/20/2024 Active Start: 07-20-2023 End: 07-28-2023 take 1 tablet by mouth twice daily lisinopril-hydroCHLOROthiazide (ZESTORET IC) 20-12.5 mg per tablet Take 1 tablet by mouth two times a day. 60 tablet 0 07/20/2023 07/28/2023 Discontinued Start: 06-30-2021 End: 07-14-2022 take 1 tablet by mouth twice daily lisinopril-hydroCHLOROthiazide (PRINZIDE,ZESTORETIC) 20-12.5 mg per tablet Take 1 tablet by mouth twice daily. ( adjusted dose and sent RX) 180 tablet 3 06/30/2021 07/14/2022 Discontinued Start: 12-26-2019 End: 02-06-2021 take 1 tablet by mouth twice daily Lisinopril-Hydrochlorothiazide Discontin ued 1 TABLET PO TWICE A DAY 180 January 10, 2020 5:27pm February 06, 2021 3:33pm Start: 12-26-2019 End: 12-26-2019 take 1 tablet by mouth once daily Lisinopril-Hydrochlorothiazide Discontin ued 1 TABLET PO DAILY December 25, 2019 11:00pm December 26, 2019 3:29pm Comment on above: Take 1 tablet by karli [facility] twice daily. ( adjusted dose and sent RX) Take 1 tablet by karli th two times a day. hydroxychloroquine sulfate 200 mg oral tablet (4 sources) Antimalarial, Antirheumatic Agent Start: 2024 take 1 tablet by mouth once daily hydrOXYchloroQUINE (PLAQUENIL) 200 mg tablet Indications: Pain of right hand , Swelling of right middle finger Take 1 tablet by mouth once daily. 90 tablet 1 10/11/2024 Active lovastatin 40 mg oral tablet (20 sources) HMG-CoA Reductase Inhibitor Start: 2023 End: 2024 take 1 tablet by mouth once daily at bedtime lovastatin 40 mg tablet Take 1 tablet by mouth daily at bedtime. 90 tablet 3 07/20/2024 Active Start: 07-20-2023 End: 07-28-2023 take 1 tablet by mouth once daily at bedtime lovastatin 40 mg tablet Take 1 tablet by mouth daily at bedtime. 30 tablet 0 07/20/2023 07/28/2023 Discontinued Start: 12-26-2019 End: 07-14-2022 take 1 tablet by mouth once daily at bedtime lovastatin 40 mg tablet Take 1 tablet by mouth daily at bedtime. 90 tablet 3 06/30/2021 07/14/2022 Discontinued Comment on above: Take 1 tablet by karli th daily at bedtime. methylcellulose 500 mg oral tablet (20 sources) Start: 12-26-19 take 1 tablet by mouth twice daily Methylcellulose (Laxative) (Citrucel) 500 mg tablet Active 500 MG PO TWICE A DAY December 25, 2019 11:00pm Start: 07-17-2010 Methylcellulos e, Laxative, 500 mg tab TAKE TWO TABLETS TWICE DAILY 0 07/17/2010 Active Comment on above: TAKE TWO TABLETS TWI CE DAILY 24 hr metoprolol succinate 50 mg extended release oral tablet (20 sources) beta-Adrenergic Gregor Start: 08-01-2023 End: 07-20-2024 take 1 tablet by mouth once daily in the morning, then take 0.5 tablet by mouth once metoprolol succinate ER (TOPROL XL) 50 mg 24 hr tablet Take 1 tablet by mouth every morning AND 0.5 tablets every afternoon. 135 tablet 3 07/20/2024 Active Start: 07-13-2023 End: 07-28-2023 take 1 tablet by mouth once daily in the morning, then take 0.5 tablet by mouth once metoprolol succinate ER (TOPROL XL) 50 mg 24 hr tablet Take 1 tablet by mouth every morning AND 0.5 tablets every afternoon. 135 tablet 3 07/13/2023 07/28/2023 Discontinued Start: 12-26-2019 End: 07-14-2022 take 1 tablet by mouth once daily in the morning, then take 0.5 tablet by mouth once metoprolol succinate ER (TOPROL XL) 50 mg 24 hr tablet Take 1 tablet by mouth every morning AND 0.5 tablets every afternoon. 135 tablet 3 06/30/2021 07/14/2022 Discontinued Start: 12-26-2019 End: 12-26-2019 take 50 mg by mouth twice daily Metoprolol Succinate Discontinued 50 MG PO TWICE A DAY December 25, 2019 11:00pm December 26, 2019 3:27pm Comment on above: Take 1 tablet by karli th every morning AND 0.5 tablets every afternoon. MINERAL OIL ORAL (20 sources) MINERAL OIL ORAL Take by mouth as needed (constipation). Active MINERAL OIL ORAL Take by mouth as needed (constipation). 0 Active Comment on above: Take by mouth as nee ded (constipation). Multivitamin preparation (3 sources) Start: 12-26-19 take 1 tablet by mouth once daily Multivitamin Active 1 TABLET PO DAILY December 25, 2019 11:00pm Start: 12-26-2019 take 1 tablet by karli th once daily Multivitamin Active 1 TABLET PO DAILY December 26, 2019 12:00am nortriptyline 25 mg oral capsule (20 sources) Tricyclic Antidepressant Start: 07-13-2023 End: 07-20-2024 take 1 capsule by mouth once daily at bedtime nortriptyline (PAMELOR) 25 mg capsule Take 1 capsule by mouth daily at bedtime. 90 capsule 3 07/20/2024 Active Start: 12-26-2019 End: 07-14-2022 take 1 capsule by mouth once daily at bedtime nortriptyline (PAMELOR) 25 mg capsule Take 1 capsule by mouth daily at bedtime. 90 capsule 3 06/30/2021 07/14/2022 Discontinued Comment on above: Take 1 capsule by mo uth daily at bedtime. [place]-3 Fatty Acids (Fish Oil Concentrate) 1,000 mg capsule (3 sources) Start: 12-26-2019 take 1 capsule by mouth once daily [place]-3 Fatty Acids (Fish Oil Concentrate) 1,000 mg capsule Active 1000 MG PO DAILY December 25, 2019 11:00pm Start: 12-26-2019 take 1 capsule by mo ut once daily [place]-3 Fatty Acids (Fish Oil Concentrate) 1,000 mg capsule Active 1000 MG PO DAILY December 26, 2019 12:00am omega-3 fatty acids/vitamin e(FISH OIL 1,000 MG CAP) (20 sources) Start: 03-19-2009 omega-3 fatty acids/vitamin e(FISH OIL 1,000 MG CAP) Take one(1) tablet daily. 1 0 03/19/2009 Active Comment on above: Take one(1) tablet d aily. omeprazole 20 mg delayed release oral capsule (20 sources) Proton Pump Inhibitor Start: 07-13-2023 End: 08-10-2024 take 1 capsule by mouth twice daily before mealtime omeprazole (PRILOSEC) 20 mg capsule Take 1 capsule by mouth two times a day. 1/2 HR BEFORE MEAL. 180 capsule 3 08/10/2024 Active Start: 12-26-2019 End: 07-14-2022 take 1 capsule by mouth twice daily before mealtime omeprazole (PRILOSEC) 20 mg capsule Take 1 capsule by mouth twice daily. 1/2 HR BEFORE MEAL. 180 capsule 3 06/30/2021 07/14/2022 Discontinued Comment on above: Take 1 capsule by [facility] twice daily. 1/2 HR BEFORE MEAL. Take 1 capsule by [facility] two times a day. 1/2 HR BEFORE MEAL. polyethylene glycol 3350 53178 mg powder for oral solution (20 sources) Osmotic Laxative Start: 8 polyethylene glycol 3350 (MIRALAX, GLYCOLAX) 17 gram/dose powder Take 17 g by mouth once daily. 3 Bottle 3 10/28/2017 Active Comment on above: Take 17 g by mouth o nce daily. predniSONE 5 mg oral tablet (7 sources) Start: 5 End: 5 take 2 tablets by mouth once daily, then take 1 tablet by mouth once daily predniSONE (DELTASONE) 5 mg tablet Take 2 tablets by mouth once daily for 7 days, THEN 1 tablet once daily for 7 days. 21 tablet 09/20/2024 10/04/2024 Active proparacaine hydrochloride 5 mg/ml ophthalmic solution (2 sources) Local Anesthetic Start: End: proparacaine 0.5 % 1 drop (ALCAINE) Start: 11-26-2024 End: 11-26-2024 1 drop, BOTH EYES, DIRECT ED, Starting on Tue11/26/24 at 1000, Until Tue11/26/24 at 2159, Administer for pneumo tonometry, tonopen tonometry, or pachymetry. In the event of a proparacaine shortage, administer tetracaine 0.5% ophthalmic drops 1 drop in the left eye as directed for pneumo tonometry, tonopen tonometry, or pachymetry THERAPEUTIC MULTIVITAMIN TAB (20 sources) Start: 07-13-2005 THERAPEUTIC MULTIVITAMIN TAB Take one(1) tablet daily. 0 07/13/2005 Active Comment on above: Take one(1) tablet d aily. tropicamide 10 mg/ml ophthalmic solution (3 sources) Anticholinergic Start: 11-26-2024 End: 11-26-2024 tropicamide 1 % 1 drop (MYDRIACYL) Start: 11-26-2024 End: 11-26-2024 1 drop, BOTH EYES, DIRECT ED, Starting on Tue11/26/24 at 1000, Until Tue11/26/24 at 2159, Administer for dilation Start: 10-08-2021 End: 10-08-2021 tropicamide 1 % 1 Drop (MYDR IACYL) Completed/Discontinued Medications Medication Drug Class(es) Dates Sig (Normalized) Sig (Original) aspirin 81 mg delayed release oral tablet (20 sources) Platelet Aggregation Inhibitor, Nonsteroidal Anti-inflammatory Drug Start: 5 End: 5 take 1 tablet by mouth once daily aspirin, enteric coated (ASPIRIN, ENTERIC COATED) 81 mg EC tablet Take 1 tablet by mouth once daily. 0 11/26/2014 10/02/2024 Discontinued Comment on above: Take 1 tablet by karli once daily. clobetasol propionate 0.0005 mg/mg topical ointment (20 sources) Corticosteroid Start: 2 End: 3 clobetasol (TEMOVATE) 0.05 % ointment Indications: Lichen planus-like dermatitis Apply to vulva twice daily for four weeks. Then, apply daily for four weeks. Then, apply three times per week for four weeks. Then apply twice weekly. 60 g 2 08/25/2021 02/07/2023 Discontinued Comment on above: Apply to vulva twice daily for four weeks. Then, apply daily for four weeks. Then, apply three times per week for four weeks. Then apply twice weekly. cycloSPORINE 0.5 mg/ml ophthalmic suspension (3 sources) Calcineurin Inhibitor Immunosuppressant Start: 0 End: 0 Cyclosporine (Restasis) 0.05 % dropperette Discontinued 1 DRP OPHTHALMIC Q12H December 25, 2019 11:00pm December 26, 2019 2:48pm fluorometholone 1 mg/ml ophthalmic suspension (3 sources) Corticosteroid Start: 0 End: 1 Fluorometholone Discontinued 1 DRP OPHTHALMIC EVERY 6 HOURS December 25, 2019 11:00pm December 23, 2020 9:45am folic acid 1 mg oral tablet (2 sources) Start: 4 End: 5 take 2 tablets by mouth once folic acid 1 mg tablet Take 2 tablets by mouth every afternoon. 04/03/2024 07/20/2024 Discontinued leucovorin 15 mg oral tablet (2 sources) Folate Analog Start: 4 End: 5 take 1 tablet by mouth every week leucovorin (LEUCOVORIN) 15 mg tablet Take 1 tablet by mouth one time a week. on Tuesday04/03/2024 07/20/2024 Discontinued lifitegrast 50 mg/ml ophthalmic solution (3 sources) Lymphocyte Function-Associated Antigen-1 Antagonist Start: 0 End: 1 Lifitegrast Discontinued 1 DRP OPHTHALMIC Q12H December 25, 2019 11:00pm December 23, 2020 9:45am methenamine hippurate 1000 mg oral tablet (4 sources) Start: 2 take 1 tablet by mouth twice daily at mealtime Methenamine Hippurate (HIPREX) 1 gram tablet Indications: Recurrent UTI Take 1 tablet by mouth twice daily with meals. 180 tablet 3 09/08/2021 Active Comment on above: Take 1 tablet by karli th twice daily with meals. methotrexate 2.5 mg oral tablet (2 sources) Folate Analog Metabolic Inhibitor Start: 4 End: 5 take 5 tablets by mouth once methotrexate 2.5 mg tablet Take 12.5 mg by mouth every . 04/03/2024 07/20/2024 Discontinued trimethoprim 100 mg oral tablet (16 sources) Dihydrofolate Reductase Inhibitor Antibacterial Start: 2 End: 3 take 1 tablet by mouth once daily trimethoprim (PROLOPRIM) 100 mg tablet Take 1 tablet by mouth once daily. 30 tablet 2 12/18/2021 02/07/2023 Discontinued Comment on above: Take 1 tablet by karli th once daily. Problems Active Problems Problem Classification Problem Date Documented Date Episodic/Chronic Blindness and vision defects (2 sources) Subjective visual disturbance; Translations: [Unspecified subjective visual disturbances] Episodic Cardiac dysrhythmias (4 sources) Palpitations; Translations: [Palpitations] Onset: 5 12-23-2020 Episodic Cataract (2 sources) Pseudophakia; Translations: [Presence of intraocular lens] Chronic Conditions associated with dizziness or vertigo (20 sources) Active cochleovestibular Meniere's disease; Translations: [Meniere's disease, unspecified ear] Onset: 7 08-03-2006 Chronic Conditions associated with dizziness or vertigo (20 sources) Benign paroxysmal positional vertigo; Translations: [Benign paroxysmal vertigo, unspecified ear] Onset: 7 08-03-2006 Episodic Disorders of lipid metabolism (20 sources) Mixed hyperlipidemia; Translations: [Mixed hyperlipidemia] Onset: 6 07-13-2015 Chronic Esophageal disorders (20 sources) Gastroesophageal reflux disease; Translations: [Gastro-esophageal reflux disease without esophagitis] Onset: 8 07-06-2016 Chronic Essential hypertension (20 sources) Essential hypertension; Translations: [Essential (primary) hypertension] Onset: 6 11-24-2020 Chronic Gastroduodenal ulcer (except hemorrhage) (4 sources) H/O: gastric ulcer; Translations: [Personal history of peptic ulcer disease] Onset: 5 09-20-2024 Episodic Heart valve disorders (2 sources) Heart murmur; Translations: [Cardiac murmur, unspecified] Onset: 5 10-02-2024 Episodic Malaise and fatigue (4 sources) Fatigue; Translations: [Other fatigue] Onset: 5 12-26-2019 Episodic Nonmalignant breast conditions (4 sources) Microcalcifications of the breast; Translations: [Mammographic microcalcification found on diagnostic imaging of breast] Episodic Nutritional deficiencies (5 sources) Vitamin D deficiency; Translations: [Vitamin D deficiency, unspecified] Onset: 4 Chronic Osteoarthritis (20 sources) Degenerative joint disease involving multiple joints; Translations: [Polyosteoarthritis, unspecified] Onset: 6 07-13-2015 Chronic Other aftercare (1 source) Drug therapy finding; Translations: [Other care home (current) drug therapy] 10-11-2024 Episodic Other aftercare (1 source) Taking high risk medication; 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] 11-26-2024 Episodic Other aftercare (1 source) Other care home (current) drug therapy; Translations: [High risk medication use] Onset: 5 Episodic Other and ill-defined heart disease (1 source) Atrial hypertrophy 10-02-2024 Chronic Other and ill-defined heart disease (1 source) Ventricular hypertrophy ; Translations: [Cardiomegaly] 10-02-2024 Chronic Other and ill-defined heart disease (1 source) Cardiomegaly; Translations: [Asymmetric hypertrophy of ventricular septum] Onset: 5 Chronic Other circulatory disease (20 sources) Raynaud's disease; Translations: [Raynaud's syndrome without gangrene] 06-13-2006 Chronic Other circulatory disease (1 source) Raynaud's syndrome without gangrene; Translations: [Raynaud's disease without gangrene] Onset: 6 Chronic Other connective tissue disease (1 source) Swelling of lower leg; Translations: [Other specified soft tissue disorders] 08-22-2023 Episodic Other connective tissue disease (5 sources) Pain of bilateral hands; Translations: [Pain in right hand] 09-20-2024 Episodic Other connective tissue disease (6 sources) Pain in right hand; Translations: [Pain in right hand] 09-24-2024 Episodic Other connective tissue disease (4 sources) Swelling of finger ; Translations: [Other specified soft tissue disorders] 10-11-2024 Episodic Other connective tissue disease (2 sources) Pain in right hand; Translations: [Pain of right hand] Onset: 5 Episodic Other connective tissue disease (1 source) Other specified soft tissue disorders; Translations: [Swelling of right middle finger] Onset: 5 Episodic Other connective tissue disease (1 source) Pain in left hand; Translations: [Bilateral hand pain] Onset: 5 Episodic Other diseases of bladder and urethra (1 source) Overactive bladder; Translations: [OAB (overactive bladder)] Onset: 2 Chronic Other ear and sense organ disorders (20 sources) Deafness of left ear; Translations: [Unspecified hearing loss, left ear] Onset: 6 07-06-2016 Chronic Other eye disorders (1 source) Bilateral posterior vitreous detachment; Translations: [Vitreous degeneration, bilateral] 11-26-2024 Chronic Other eye disorders (2 sources) Disorder of lacrimal gland; Translations: [Dry eye syndrome of bilateral lacrimal glands] Episodic Other gastrointestinal disorders (20 sources) Irritable bowel syndrome; Translations: [Irritable bowel syndrome without diarrhea] Onset: 1 07-22-2010 Chronic Other gastrointestinal disorders (1 source) Mixed irritable bowel syndrome; Translations: [Irritable bowel syndrome with both constipation and diarrhea] Onset: 1 Chronic Other gastrointestinal disorders (3 sources) Constipation; Translations: [Constipation, unspecified] 08-19-2022 Episodic Other gastrointestinal disorders (3 sources) Smearing feces; Translations: [Fecal smearing] 12-11-2021 Episodic Other gastrointestinal disorders (5 sources) Constipation, unspecified; Translations: [Constipation, unspecified] Episodic Other gastrointestinal disorders (3 sources) Fecal smearing; Translations: [Fecal smearing] Episodic Other gastrointestinal disorders (2 sources) Chronic constipation; Translations: [Other constipation] 08-22-2023 Episodic Other lower respiratory disease (2 sources) Dyspnea; Translations: [Shortness of breath] 09-20-2024 Episodic Other lower respiratory disease (2 sources) Dyspnea on exertion; Translations: [Other forms of dyspnea] 10-02-2024 Episodic Other lower respiratory disease (1 source) Other forms of dyspnea; Translations: [WALTERS (dyspnea on exertion)] Onset: 5 Episodic Other lower respiratory disease (3 sources) Shortness of breath; Translations: [Shortness of breath] Onset: 5 Episodic Other nervous system disorders (2 sources) Neuropathy; Translations: [Polyneuropathy, unspecified] 09-20-2024 Chronic Other nervous system disorders (1 source) Polyneuropathy, unspecified; Translations: [Neuropathy] Onset: 5 Chronic Other non-traumatic joint disorders (1 source) Polyarthropathy; Translations: [Polyarthritis, unspecified] 12-23-2023 Chronic Other nutritional; endocrine; and metabolic disorders (1 source) Blood urate raised; Translations: [Hyperuricemia without signs of inflammatory arthritis and tophaceous disease] 10-02-2024 Episodic Prolapse of female genital organs (20 sources) Disorder of rectum; Translations: [Rectocele] Onset: 7 Resolved: 0 09-29-2009 Chronic Rheumatoid arthritis and related disease (1 source) Inflammatory polyarthropathy; Translations: [Inflammatory polyarthropathy] Onset: 4 Chronic Spondylosis; intervertebral disc disorders; other back problems (20 sources) Degeneration of cervical intervertebral disc; Translations: [Other cervical disc degeneration, unspecified cervical region] Onset: 4 09-10-2013 Chronic Thyroid disorders (20 sources) Multinodular goiter; Translations: [Nontoxic multinodular goiter] Onset: 6 11-16-2015 Chronic Varicose veins of lower extremity (1 source) Pain co-occurrent and due to varicose veins of right leg; Translations: [Varicose veins of right lower extremity with pain] 01-20-2024 Episodic Past or Other Problems Problem Classification Problem Date Documented Da te Episodic/Chronic Allergic reactions (20 sources) Eczema; Translations: [Dermatitis, unspecified] Onset: 07-01-2011 07-01-2011 Episodic Blindness and vision defects (20 sources) Visual impairment; Translations: [Unspecified visual loss] Onset: 04-21-2010 Resolved: 12-27-2016 12-27-2021 Chronic Diabetes mellitus without complication (20 sources) Prediabetes; Translations: [Prediabetes] Onset: 11-16-2015 11-16-2015 Episodic Fluid and electrolyte disorders (4 sources) Hyponatremia; Translations: [Hypo-osmolality and hyponatremia] Onset: 07-20-2024 07-20-2024 Episodic Gastritis and duodenitis (20 sources) Gastritis; Translations: [Other gastritis without bleeding] Onset: 05-27-2008 Resolved: 07-06-2016 07-06-2016 Episodic Gastrointestinal hemorrhage (1 source) Hemorrhage of anus and rectum; Translations: [Hemorrhage of anus and rectum] Onset: 06-26-2024 Episodic Genitourinary symptoms and ill-defined conditions (20 sources) Urge incontinence of urine; Translations: [Urge incontinence] Onset: 01-10-2008 Resolved: 09-29-2009 09-29-2009 Chronic Genitourinary symptoms and ill-defined conditions (20 sources) Urinary symptoms ; Translations: [Unspecified symptoms and signs involving the genitourinary system] Onset: 01-10-2008 Resolved: 07-06-2016 Episodic Immunizations and screening for infectious disease (6 sources) Requires varicella vaccination; Translations: [Encounter for immunization] Onset: 07-20-2024 Episodic Menopausal disorders (20 sources) Postmenopausal atrophic vaginitis; Translations: [Atrophic vaginitis] Onset: 06-08-2007 Resolved: 07-06-2016 07-06-2016 Chronic Other aftercare (1 source) Encounter for therapeutic drug level monitoring; Translations: [Encounter for therapeutic drug level monitoring] Onset: 07-12-2024 Episodic Other female genital disorders (1 source) Other specified noninflammatory disorders of vulva and perineum; Translations: [Vulvar lesion] Onset: 09-08-2021 Episodic Other gastrointestinal disorders (20 sources) Incontinence of feces; Translations: [Full incontinence of feces] Onset: 09-29-2009 Resolved: 03-23-2011 03-23-2011 Episodic Other gastrointestinal disorders (1 source) Full incontinence of feces; Translations: [Full incontinence of feces] Onset: 03-23-2011 Episodic Other gastrointestinal disorders (1 source) Other specified symptoms and signs involving the digestive system and abdomen; Translations: [Alternating constipation and diarrhea] Onset: 08-25-2021 Episodic Other screening for suspected conditions (not mental disorders or infectious disease) (7 sources) Patient encounter status; Translations: [Encounter for screening mammogram for malignant neoplasm of breast] Onset: 07-20-2024 07-09-2022 Episodic Residual codes; unclassified (20 sources) Persistent insomnia; Translations: [Insomnia, unspecified] Onset: 04-26-2017 04-26-2017 Episodic Spondylosis; intervertebral disc disorders; other back problems (20 sources) Neck pain; Translations: [Cervicalgia] Onset: 03-24-2006 03-24-2006 Episodic Unclassified (2 sources) Patient encounter status 08-19-2024 Urinary tract infections (7 sources) Recurrent urinary tract infection; Translations: [Urinary tract infection, site not specified] Onset: 08-25-2021 Episodic Results Test Name Value Interpretation Reference Range Facility OCT MACULA CIRRUS OU (BOTH E YES)on 11-26-2024 [facility] Radiology Study observation (narrative) [facility] VISUAL FIELD 10-2 OU (BOTH E YES)on 11-26-2024 [facility] Radiology Study observation (narrative) [facility] CNOVon 11-19-2024 CNOV Office Visit (AVELWS ) CONCEPCION DONALDSON ([id number]) 1940 F Date Time Provider Department 11/19/24 1:30 PM JV BROOKS During your visit today, we recorded the following information about you: Jv Brooks MD 12/11/2024 12:10 AM Signed Jv Brooks MD Department of Orthopaedics Orthopaedics [address] [facility] [address] Dept: [phone] Dept November 19, 2024 CHIEF COMPLAINT: New and Pain of the Right Hand Concepcion is an 83-year-old female with a history of arthritis, presenting for evaluation of worsening finger deformities and swelling. HPI Finger Deformities and Swelling: - Progressive deformities and swelling in multiple fingers, worsening over the past 5 years. - Significant functional limitations: unable to wring out washcloths, peel potatoes/apples, or make a fist. - Notable swelling in fingers began after the first of the year. - Middle finger on the right hand is particularly affected, with limited motion and swelling. - Reports occasional pain at the base of the right thumb joint. - Denies known history of gout in knees or toes. - Currently managed with Plaquenil and occasional Prednisone. - Under the care of rheumatology; next appointment scheduled for January. 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 Pain of right hand (M79.641) 2. Swelling of right middle finger (M79.89) 3. Arthritis of finger (M19.049) 4. Inflammatory arthritis (M19.90) - Chronic swelling and limited range of motion in multiple fingers, particularly the right middle finger, with significant functional impairment. - Differential diagnosis includes seronegative rheumatoid arthritis and gout; however, gout is less likely given the absence of symptoms in other typical areas. - Currently managed with Plaquenil and intermittent prednisone. - Discussed potential surgical intervention for the right middle finger, including silicone joint replacement to improve function and reduce swelling. - Surgical procedure would allow for histopathological examination of the tissue to confirm diagnosis. - Will consult with rheumatology and hand surgery colleagues to finalize treatment plan. - Patient to discuss surgical option with family and will follow up with decision. Will continue to monitor patient for Pain of right hand Swelling of right middle finger Arthritis of finger (primary encounter diagnosis) Inflammatory arthritis, patient to schedule visit as per follow up discussed. OBJECTIVE: Ms. Concepcion Donaldson is a pleasant 83 year old in no apparent distress. Gen:There were no vitals taken for this visit. nl development, non obese, no deformities ENT: Normocephalic, normal hearing, moist mucosa CV: Pulses:Radial= 2+ and symmetric, capillary refill < 2 secs, no peripheral edema/varicosities Skin: no rash, bruising or lesions. Good turgor. Psych: cooperative and appropriate, alert and oriented x 3, good mood and affect. Musculoskeletal: - Musculoskeletal: - Right Hand: - Index Finger: MCP flexion to 80 degrees, PIP flexion to 95 degrees, full DIP flexion. - Middle Finger: MCP flexion to 90 degrees, PIP flexion to 50 degrees, slight limitation in extension. - Ring Finger: MCP flexion to 90 degrees, PIP flexion to 95-100 degrees. - Right Thumb: Arthritic changes noted at the base of the joint. IMAGING: Labs: - Serum uric acid: Elevated Imaging: - X-ray (date not provided) of the hands, feet, and hips: - Findings: Advanced arthritic changes in the right middle finger with bone spur formation; arthritic changes at the base of the right thumb. 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 Clemons Past Surgical History: PAST SURGICAL HISTORY Procedure Laterality Date PRAKASH PH PLACEMENT W/O ENDOSCOPY 09/03/[address] [facility] [address] Cabello CHOLECYSTECTOMY 1982 COLONOSCOPY FLX DX W/COLLJ SPEC WHEN PFRMD 05/17/2002 Colonoscopy COLONOSCOPY FLX DX W/COLLJ SPEC WHEN PFRMD 07/18/2016 Colonoscopy COLONOSCOPY W/BIOPSY SINGLE/MULTIPLE 07/14/2010 DILATION AND CURETTAGE DXAND/THER NONOBSTETRIC 03/21/2001 Dilation AND curettage attempte (more content not included)... Normal [facility] 12 Lead EKG performed by [facility] on 11-14-2024 12 Lead EKG performed by [facility] [address] [place] [address] 12 Lead EKG performed by [facility] 11/14/24 1131 MR#: [id number] Acct: [id number] Name: CONCEPCION DONALDSON Rep #: [id number] : 1940 83 From: Hubert Pereira MD Attending Dr: Dr. Hubert Pereira MD Status: DEP A MB Ordering Dr: Hubert Pereira MD Date: 11/14/24 Location: [facility] Sex: F C Admitted: BMS/12 Lead EKG performed by [facility] ECG Report Interpretation ---Sinus Rhythm -Left axis -anterior fascicular block. Voltage criteria for LVH (R(aVL) exceeds 1.26 mV) -Nonspecific QRS widening. -Old anterior infarct. ABNORMAL Electronically signed on 11/20/2024 at 08:18 by Hubert Pereirawood Software Version 8610 11/20/24 0821 Date Hubert Pereira MD CC: Dr. Preston Haney MD Date Dictated: 11/14/24 113 Date Transcribed: 11/14/24 113 Adjunct Lecturer: [place] Signed Normal [facility] Cardiology Visit Reporton Cardiology Visit Report [facility] [address] [place] [address] OFFICE VISIT Date of Service: 11/14/24 MR#: [id number] Acct: [id number] Name: CONCEPCION DONALDSON Rep #: [id number] : 1940 Provider: Dr. Hubert Pereira MD Age/Sex: 83/F Location: [facility] Status: Signed HPI HPI History of Present Illness Details: Pleasant 83-year-old lady who presents for reestablishment of care. She has seen us a number of years ago for palpitations and was evaluated and asked to be seen on an as-needed basis. More recently she started experiencing some shortness of breath with exertion and had an echocardiogram performed which demonstrated preserved ejection fraction. She was noted to have mitral calcification on the posterior leaflet which was moderate but no other valvular abnormalities. Her ejection fraction was noted to be 56%. She tells me that her blood pressures have been up-and-down and not very well-controlled at home. She has been compliant with her medications. She presents today for an evaluation. She did have a stress test in 2019 with no evidence of ischemia. Her physical exam today demonstrated clear lung dove regular rate and rhythm no pedal edema electrocardiogram demonstrated sinus rhythm with a rate of 67 bpm and a leftward axis. Her blood pressure was noted to be elevated today. Her most recent lipid profile demonstrates total cholesterol 208 HDL of 61 LDL of 84. Intake Vital Signs 05/30/24 09:40 11/14/24 11:31 Height 5 ft 3 in 5 ft 3 in Weight: 167 lb BMI 29.5 BP 172/83 H Blood Pressure Location Lt brachial Position Sitting Respiration 16 Pulse 66 Pulse Source Monitor Intake Visit Reasons: RE-EST (SELF) Title Checker Required: No Accompanied by: Daughter Is patient in pain?: No Allergies sucralfate Allergy (Severe, Verified 11/14/24 11:37) Rash Penicillins Allergy (Verified 11/14/24 11:37) hives nitrofurantoin Adverse Reaction (Intermediate, Verified 11/14/24 11:37) Other alendronate sodium (Fosamax) Adverse Reaction (Verified 11/14/24 11:37) Unknown celecoxib (From Celebrex) Adverse Reaction (Verified 11/14/24 11:37) Rash cetirizine (From Zyrtec) Adverse Reaction (Verified 11/14/24 11:37) Unknown codeine Adverse Reaction (Verified 11/14/24 11:37) Unknown niacin Adverse Reaction (Verified 11/14/24 11:37) Unknown rofecoxib (From Vioxx) Adverse Reaction (Verified 11/14/24 11:37) Unknown Sulfa (Sulfonamide Antibiotics) Adverse Reaction (Verified 11/14/24 11:37) intolerance Medications ???Medication ???Instructions ???Recorded ???Confirmed ???Type calcitriol 0.25 mcg capsule 0.25 mcg PO DAILY 12/26/19 5 History lovastatin 40 mg tablet 40 mg PO QPM 12/26/19 11/14/24 His tory multivitamin 1 tab PO DAILY 12/26/19 11/14/24 H istory nortriptyline 25 mg capsule 25 mg PO QHS 12/26/19 11/14/24 His tory (Pamelor) omega-3 fatty acids 1,000 mg 1,000 mg PO DAILY 12/26/19 5 History capsule (Fish Oil Concentrate) omeprazole 20 mg capsule,delayed 20 mg PO BID 12/26/19 11/14/24 His tory release polyethylene glycol 3350 17 17 g PO DAILY 12/26/19 11/14/24 Hi story gram/dose oral powder (Miralax) lisinopril 20 1 tab PO BID #180 tabs 02/06/21 Rx mg-hydrochlorothiazide 12.5 mg tablet cholecalciferol (vitamin D3) 50 50 mcg PO DAILY 05/28/24 11/14/24 History mcg (2,000 unit) capsule (Vitamin D3) estradiol 0.01% (0.1 mg/gram) 1 appful vaginal MOFR 05/28/2402/01 History vaginal cream calcium carbonate (Calcium 600) 1,200 mg PO QDAY 11/02/24 11/14/24 History methylcellulose (laxative) 500 mg 1,000 mg PO BID 11/02/24 11/14/24 History tablet (Citrucel) metoprolol succinate 50 mg 50 mg PO DAILY 11/02/24 11/14/24 H istory tablet,extended release 24 hr amlodipine 5 mg tablet 5 mg PO QDAY #90 tabs 11/14/24 Rx mineral oil 15 ml PO QDAY 11/14/24 11/14/24 Hi story Have you fallen in the past year?: [facility] Arthritis Asymmetric hypertrophy of ventricular septum Back pain Benign paroxysmal positional vertigo, bilateral Breast calcifications Cancer Constipation DDD (degenerative disc disease) Diverticulosis Essential (primary) hypertension Fatigue Gastric ulcer GERD (gastroesophageal reflux disease) Heart murmur Heart palpitations History of diverticulitis History of edema History of hiatal hernia History of pain when walking Hyperlipidemia IBS (irritable bowel syndrome) Meniere disease Multinodular thyroid Osteoarthritis Raynaud disease Shortness of breath on exertion Uterovaginal prolapse, incomplete Surgical History History of bunionectomy (more content not included)... Normal [facility] ECHOon 10-16-2024 Echocardiography Echocardiography Report: Transthoracic Echo [facility] Date of service: 10/16/2024 11:01:09 AM TECHNICIAN Ordering physician: BYRON HERMAN Indication: Shortness of Breath Technologist: Lucille Pineda [facility] Interpreting physician: Leonora Valentin MD PATIENT: Name: CONCEPCION DONALDSON : 1940 Age: 83 years Gender: F History of hypertension and dyslipidemia. Primary rhythm: sinus. Height: 160.70 cm BSA: 1.80 m Weight: 72.20 kg BMI: 28.0 kg/m Heart rate 88 bpm Blood pressure 187/93 mmHg Technically difficult exam due to body habitus. Color Doppler was utilized to interrogate the cardiac valves assessed and spectral Doppler was utilized to determine the flow velocities and pressure gradients reported in this exam. MEASUREMENTS: Value Indexed Normal Max aortic dimension 3.5 cm Ao < 3.8 Left atrial volume 33 ml (biplane A-L) 19 ml/m Conrado <= 34 LV ID (diastole) 3.5 cm (2D) 1.94 cm/m LV ID (systole) 2.2 cm (2D) 1.22 cm/m IVS, leaflet tips 0.9 cm (2D) Posterior wall thickness 0.9 cm (2D) Left ventricular mass 90 g (2D) 50 g/m LV stroke volume 38 ml (2D biplane) LV end diastolic volume 68 ml (2D biplane) 37.9 ml/m 29<=EDVi<62 LV end systolic volume 30 ml (2D biplane) 16.8 ml/m Ejection Fraction 56 % (2D biplane) EF > 54 FINDINGS: LEFT VENTRICLE The left ventricle is normal in size. Left ventricular systolic function is normal. Normal left ventricular diastolic function. Wall Motion: All scored segments are normal. RIGHT VENTRICLE The right ventricle is normal in size. Right ventricular systolic function is low normal. RV systolic tissue Doppler velocity is 9.0 cm/s. Tricuspid annular displacement is 1.6 cm. Estimated right atrial pressure is 3 mmHg (although IVC not seen). LEFT ATRIUM The left atrial cavity is normal in size. RIGHT ATRIUM Unable to reliably measure RA volume due to technical limitations. Inferior Vena Cava: The inferior vena cava appears normal measuring 1.3 cm. MITRAL VALVE There is moderate mitral annular calcification observed posterior. There is trace mitral valve regurgitation. TRICUSPID VALVE The tricuspid valve leaflets are structurally normal. There is no tricuspid valve regurgitation. AORTIC VALVE There is no aortic valve regurgitation. Tricuspid aortic valve. There is mild thickening. The peak gradient is 6 mmHg (peak velocity = 122.3 cm/s). PULMONIC VALVE The pulmonic valve cusps are structurally normal. There is no pulmonic valve regurgitation. AORTA The visualized aorta is normal in size. Measurements - Mid ascending aorta 3.5 cm. INTERATRIAL SEPTUM There is no evidence of intracardiac shunting as detected by Doppler. PERICARDIUM There is no pericardial effusion. There is an epicardial fat pad. CONCLUSIONS: - Technically difficult exam due to body habitus. - Exam indication: Shortness of Breath - The left ventricle is normal in size. Left ventricular systolic function is normal. EF = 56 5% (2D biplane) Normal left ventricular diastolic function. - The right ventricle is normal in size. Right ventricular systolic function is low normal. No significant valvular abnormalities. - Exam was compared with the prior echocardiographic exam performed on 03/01/2019, no significant change. * * * Final * * * CDC Software Medical Image : [id number] ISUID Normal [facility] CNOVon 10-11-2024 CNOV Office Visit (RHWSTR ) CONCEPCION DONALDSON ([id number]) 1940 F Date Time Provider Department 10/11/24 9:00 AM LEXIS ROCA RHWSTR During your visit today, we recorded the following information about you: Pulse Blood pressure Weight 70/minute 152/74 72.1 kg Lexis Roca PA-C 10/11/2024 6:02 PM Signed Rheumatology FOLLOW UP VISIT Date of Service: 10/11/2024 Patient: Concepcion Donaldson Medical Record: [id number] Primary Care Physician: Preston Haney MD Last Rheumatology visit: None at [facility] History of Present Illness Concepcion Donaldson is a 83 year old White female who presents on 10/11/2024 for an in-person visit for evaluation of established patient. She is currently taking hydroxychloroquine sulfate. Concepcion is both RF - 9 (09/20/2024) and CCP - 13.5 (09/20/2024) negative. Her most recent ANNIE was negative (06/17/2015). Concepcion reports chronic hand and foot pain with associated swelling and stiffness. She notes difficulty with activities such as peeling potatoes and apples for the past 5 years. She has been unable to wear rings due to swelling and reports gradual worsening of symptoms over the past year. She denies major flare-ups with hot, red, or more swollen joints, stating the condition has been gradually worsening. She recently completed a course of prednisone, which provided approximately 50% improvement in pain and stiffness but did not reduce swelling. She reports increased squeezing power in her hands but continues to experience pain, particularly when bumping her hands. She notes tenderness in her left fifth finger PIP joint and mild tenderness and swelling in the left fourth PIP joint. The left middle PIP finger is swollen and tender, while the left index PIP finger is not significantly tender. The left CMC joint is prominent but not painful. In the right hand, the third PIP joint is very swollen, warm, and tender with fluid. The right index finger shows no swelling or tenderness. The right second MCP joint is mildly tender. She reports pain in both wrists, wearing bands for support. She has a history of methotrexate use but discontinued due to side effects and insurance issues. She denies current use of prednisone and reports that pain has not returned since stopping the medication last Tuesday. Recent lab work showed a slightly elevated uric acid level. X-rays revealed moderate osteoarthritis in the feet, particularly at the base of the right big toe, and advanced degenerative changes in the left thumb and right long finger, with subluxation noted. No erosions were observed. Pain Evaluation 01/27/2021 07/18/2021 07/14/2023 08/19/2024 09/20/2024 Pain Evaluation Pain Score 4 6 8 4 4 6 Location Vagina Back-Lower Leg-Left Finger Hand-Right Location Comment Right medial thigh pain Description Burning Aching Aching;Numbness;Radiati ng;Sharp;Shooting;Spasm ;Stiffness;Throbbing;Ti ghtness; Tingling Aching;Phantom;Stabbing ;Stiffness Aching Duration (#) 6 1 3 1 Duration (Timeframe) Months Weeks Weeks Weeks Years Frequency Intermittent Continuous Intermittent Intermittent Continuous Intervention Medication Distractions;Heat;Posit ioning Heat Patient-Entered Data PROMIS Assessments 02/06/2023 07/14/2023 01/13/2024 PROMIS Global Health - (T-Scores - the mean of general population = 50. Five points is a clinically meaningful difference.) Physical T-Score 44.9 37.4 42.3 Mental T-Score 45.8 45.8 45.8 07/16/2024 08/19/2024 10/04/2024 PROMIS CAT Pain Interference PROMIS Pain Interference T-Score (range: 10 - 90) 59 (mild) 56 (mild) PROMIS Pain Interference Percentile 18 27 PROMIS Adult Short Form-Global Health Score (Mental) Incomplete Incomplete 08/19/2024 10/04/2024 PROMIS CAT Fatigue PROMIS Fatigue T-Score 55 (within normal limits) 53 (within normal limits) PROMIS Fatigue Percentile 31 38 08/19/2024 10/04/2024 PROMIS PHYSICAL FUNCTION T-SCORE PROMIS Physical Function T-Score 39 (moderate dysfunction) 39 (moderate dysfunction) Physical Function Percentile 14 14 3 Oh Activities of Daily Living 09/14/2024 10:29 AM 08/19/2024 3:32 PM Dress self? Without ANY difficulty Without ANY difficulty Get in and out of bed? Without ANY difficulty Without ANY difficulty Walk outdoors? With SOME difficulty With SOME difficulty Wash and dry body? Without ANY difficulty Without ANY difficulty Get in and out of car? Without ANY difficulty Without ANY difficulty RAPID 3 Disease Activity Weighed Score Levels: 0 - 1: Near Remission 1.3 - 2.0: Low Severity 2.3 - 4.0: Moderate Severity 4.3 - 10.0: High Severity 08/19/2024 09/14/2024 RAPID-3 Weighed Score RAPID 3 Weighed Score 2.56 (Moderate severity ) 2.56 (Moderate severity ) Review of Systems Review of Systems CONSTITUTION: Negative for: Fever and Recent weight change HEENT: Negative for: Nosebleeds, Mouth sores, Trouble swallowing and Dry mouth RESPI (more content not included)... Normal [facility] CNPNon 10-09-2024 CNPN Telephone (4CQ) CONCEPCION DONALDSON ([id number]) 1940 F Date Time Provider Department 10/09/24 LEXIS ROCA 4CQ During your visit today, we recorded the following information about you: Shi Nunn 10/09/2024 8:18 AM Signed Patient was schedule for CT Scan today at 1:20 PM however the accredited pharmacy technician saw it was ordered with [employer]. Those scans can only be done at [place], [place], or [facility]. I contacted patient to reschedule to one of those locations and patient is unwilling to travel that far. Please advise. NORBERTO Roberts Kaitlyn, PA-C 10/10/2024 8:19 AM Signed We can discuss options at our appointment tomorrow. WILLEM Espinoza Danelle, RN 10/10/2024 11:25 AM Signed Checked with [facility] and they are unable to do [employer] CTs. Genesis Zuñiga RN Allergies As of Date: 10/09/2024 Noted Allergy Reaction FOSAMAX (ALENDRONATE SODIUM) 07/13/2005 5 - Intolerance CODEINE 07/13/2005 5 - Intolerance NIACIN 07/13/2005 5 - Intolerance SULFA (SULFONAMIDE ANTIBIOTICS) 07/13/2005 5 - Intolerance Comments: Stomach pain VIOXX (ROFECOXIB) 07/13/2005 5 - Intolerance ZYRTEC (CETIRIZINE HCL) 07/13/2005 5 - Intolerance CELEBREX (CELECOXIB) 07/13/2005 2 - Rash GRASS POLLEN 01/10/2008 Comments: scratchy throat NITROFURANTOIN MONOHYD/M-CRYST 05/04/2021 5 - Intolerance Comments: Stomach pain PENICILLINS 07/13/2005 4 - Hives SUCRALFATE 07/20/2024 2 - Rash Comments: Generalized red rash; itching back of neck. 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 - omeprazole (PRILOSEC) 20 mg capsule Take 1 capsule by mouth two times a day. 1/2 HR BEFORE MEAL. - nortriptyline (PAMELOR) 25 mg capsule Take 1 capsule by mouth daily at bedtime. - calcitriol (ROCALTROL) 0.25 mcg capsule Take 1 capsule by mouth once daily. - lisinopril-hydroCHLOROt hiazide (ZESTORETIC) 20-12.5 mg per tablet Take 1 tablet by mouth two times a day. - lovastatin 40 mg tablet Take 1 tablet by mouth daily at bedtime. - metoprolol succinate ER (TOPROL XL) 50 mg 24 hr tablet Take 1 tablet by mouth every morning AND 0.5 tablets every afternoon. - estradiol (ESTRACE) 0.01 % (0.1 mg/gram) vaginal cream Use 1 g vaginally daily at bedtime for 14 days, THEN 1 g two times a week. - MINERAL OIL ORAL Take by mouth as needed (constipation). - cholecalciferol (VITAMIN D3) 50 mcg (2,000 unit) tablet Take 2,000 Units by mouth once daily. - polyethylene glycol 3350 (MIRALAX, GLYCOLAX) 17 gram/dose powder Take 17 g by mouth once daily. - Methylcellulose, Laxative, 500 mg tab TAKE TWO TABLETS TWICE DAILY - omega-3 fatty acids/vitamin e(FISH OIL 1,000 MG CAP) Take one(1) tablet daily. - THERAPEUTIC MULTIVITAMIN TAB Take one(1) tablet daily. 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.09] 08/03/2006 BENIGN PARXYSMAL VERTIGO [H81.10] 08/03/2006 Uterovaginal Prolapse, Incomplete [N81.2] 06/08/2007 09/29/2009 Postmenopausal atrophic vaginitis [N95.2] 06/08/2007 07/06/2016 Chronic GERD [K21.9] 07/25/2007 Urgency of urination [R39.15] 01/10/2008 07/06/2016 Urge Incontinence [N39.41] 01/10/2008 09/29/2009 Female Stress Incontinence [N39.3] 01/10/2008 09/29/2009 GASTRITIS ANTRAL( W/O Hemorrhage) [K29.60] 05/27/2008 07/06/2016 Incontinence of feces [787.6] 09/29/2009 03/23/2011 Rectocele [N81.6] 09/29/2009 Vision loss [H54.7] 04/21/2010 07/06/2016 IBS (irritable bowel syndrome) [K58.9] 07/22/2010 Rectal incontinence [R15.9] 03/23/2011 Eczema [L30.9] 07/01/2011 Other disorder of coccyx [M53.3] 05/05/2012 DDD (degenerative disc disease), cervical [M50.*09/10/2013 Medicare annual wellness visit, subsequent [Z00*05/29/2014 02/07/2023 Prediabetes [R73.03] 11/16/2015 Multinodular thyroid [E04.2] 11/16/2015 Deafness in left ear [H91.92] 07/06/2016 Persistent disorder of initiating or maintainin*04/26/2017 Spinal stenosis of lumbar region without neurog*03/04/2019 Encounter Status:Closed by GENESIS ZUÑIGA on 10/10/24 Normal [facility] CNOVon 10-02-2024 CNOV Office Visit (INTMWS ) CONCEPCION DONALDSON ([id number]) 1940 F Date Time Provider Department 10/02/24 9:00 AM BYRON SUTTON During your visit today, we recorded the following information about you: Pulse Respiration Blood pressure Weight 80/minute 16/minute 122/66 72.2 kg Byron Sutton APRN.RAIL EXPRESS CLERK 10/02/2024 9:54 AM Signed SUBJECTIVE Concepcion Dnoaldson is a 83 year old female here today for a check up on her medical problems. Chief Complaint Patient presents with: Blood Pressure Check Shortness of Breath: upon exertion carrying items up the steps or walking to car when out shopping were a couple of examples she mentioned HPI Concepcion Donaldson is a 83 year old female. Presents for follow-up for hypertension. They are here today for a recheck of blood pressure. Blood pressure appears to be improved. Tolerating medications well. She is noticing some shortness of breath with activity. Resolves with rest. This can occur when walking with groceries or walking with the clothes basket. Prior EKG showed sinus rhythm with first degree block. Slight cough but this as just been going on with a runny nose. No chest pain or chest tightness. Prior ECHO in 2018, no valve issues, EF 60%, mild upper septal left ventricle hypertrophy. Normal stress test in 2019. Sees Dr. Pereira with [facility] heart group as needed. Seeing rheumatology, recent labs showed elevated uric acid levels. On prednisone currently. Her medications were reviewed today and her list is now up to date. Medications Current Outpatient Medications Medication Sig calcium carbonate (CALTRATE) 600 mg calcium (1,500 mg) tab Take 1,200 mg by mouth once daily. predniSONE (DELTASONE) 5 mg tablet Take 2 tablets by mouth once daily for 7 days, THEN 1 tablet once daily for 7 days. omeprazole (PRILOSEC) 20 mg capsule Take 1 capsule by mouth two times a day. 1/2 HR BEFORE MEAL. nortriptyline (PAMELOR) 25 mg capsule Take 1 capsule by mouth daily at bedtime. calcitriol (ROCALTROL) 0.25 mcg capsule Take 1 capsule by mouth once daily. lisinopril-hydroCHLOROt hiazide (ZESTORETIC) 20-12.5 mg per tablet Take 1 tablet by mouth two times a day. lovastatin 40 mg tablet Take 1 tablet by mouth daily at bedtime. metoprolol succinate ER (TOPROL XL) 50 mg 24 hr tablet Take 1 tablet by mouth every morning AND 0.5 tablets every afternoon. MINERAL OIL ORAL Take by mouth as needed (constipation). cholecalciferol (VITAMIN D3) 50 mcg (2,000 unit) tablet Take 2,000 Units by mouth once daily. polyethylene glycol 3350 (MIRALAX, GLYCOLAX) 17 gram/dose powder Take 17 g by mouth once daily. Methylcellulose, Laxative, 500 mg tab TAKE TWO TABLETS TWICE DAILY omega-3 fatty acids/vitamin e(FISH OIL 1,000 MG CAP) Take one(1) tablet daily. THERAPEUTIC MULTIVITAMIN TAB Take one(1) tablet daily. estradiol (ESTRACE) 0.01 % (0.1 mg/gram) vaginal cream Use 1 g vaginally daily at bedtime for 14 days, THEN 1 g two times a week. No current facility-administered medications for this visit. ALLERGIES Allergen Reactions Fosamax [Alendronat* Intolerance Codeine Intolerance Niacin Intolerance Sulfa (Sulfonamide * Intolerance Stomach pain Vioxx [Rofecoxib] Intolerance Zyrtec [Cetirizine * Intolerance Celebrex [Celecoxib] Rash Grass Pollen scratchy throat Nitrofurantoin Jerome* Intolerance Stomach pain Penicillins Hives Sucralfate Rash Generalized red rash; itching back of neck. 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 Home BP: 138/86 Office BP: 146/74 Mixed Hyperlipidemia - 01/12/2006 Primary Osteoarthritis Involving Multiple Joints - 01/12/2006 Social History Tobacco Use Smoking status: Never Smokeless tobacco: Never Vaping Use Vaping status: Never Used Substance Use Topics Alcohol use: No Drug use: No Review of Systems Respiratory: Positive for shortness of breath. Negative for chest tightness and wheezing. Cardiovascular: Negative. OBJECTIVE BP 122/66 Pulse 80 Resp 16 Wt 159 lb 2.8 oz (72.2kg) Physical Exam Vitals and nursing note reviewed. Constitutional: General: She is awake. She is not in acute distress. Appearance: Normal appear (more content not included)... Normal [facility] URIC ACIDOrdered By: Erica azar on 09-21-2024 Urate [Mass/Vol] 7.1 mg/dL High 2.5 - 6.6 mg/dL [facility] Urate [Mass/Vol]Ordered By: Erica Monreal on 09-21-2024 Interpretation and review of laboratory results Abnormal [facility] CBC W Auto Differential pane l (Bld)on 09-20-2024 Basophils (Bld) [#/Vol] 0.05 10*3/uL [facility] Basophils/100 WBC (Bld) 0.9 % [facility] Differential cell count method Nom (Bld) Auto [facility] Eosinophils (Bld) [#/Vol] 0.23 10*3/uL [facility] Eosinophils/100 WBC (Bld) 3.9 % [facility] Erythrocyte distribution width (RBC) [Ratio] 12.8 % 11.5 - 15.0 % [facility] Hematocrit (Bld) [Volume fraction] 43.5 % 36.0 - 46.0 % [facility] Hemoglobin (Bld) [Mass/Vol] 14.9 g/dL 11.5 - 15.5 g/dL [facility] Immature granulocytes (Bld) [#/Vol] 0.03 10*3/uL [facility] Immature granulocytes/100 WBC (Bld) 0.5 % [facility] Interpretation and review of laboratory results Abnormal [facility] Lymphocytes (Bld) [#/Vol] 0.92 10*3/uL Low [facility] Lymphocytes/100 WBC (Bld) 15.8 % [facility] MCH (RBC) [Entitic mass] 29.1 pg 26.0 - 34.0 pg [facility] MCHC (RBC) [Mass/Vol] 34.3 g/dL 30.5 - 36.0 g/dL [facility] MCV (RBC) [Entitic vol] 85 fL 80.0 - 100.0 fL [facility] Monocytes (Bld) [#/Vol] 0.84 10*3/uL [facility] Monocytes/100 WBC (Bld) 14.4 % [facility] Neutrophils (Bld) [#/Vol] 3.77 10*3/uL [facility] Neutrophils/100 WBC (Bld) 64.5 % [facility] Nucleated RBC (Bld) [#/Vol] NINF [facility] Nucleated RBC/100 WBC (Bld) [Ratio] 0 % /100 WBC [facility] Platelet mean volume (Bld) [Entitic vol] 10.6 fL 9.0 - 12.7 fL [facility] Platelets (Bld) [#/Vol] 168 10*3/uL [facility] RBC (Bld) [#/Vol] 5.12 10*6/uL 3.90 - 5.2 0 m/uL [facility] WBC (Bld) [#/Vol] 5.84 10*3/uL [facility] Basophils (Bld) [#/Vol] 0.05 10*3/uL Normal <0.11 [facility] Comment on above: Order Comment: Speci men Type: BLOOD SPECIMEN Ordering Facility: [facility] Address: [address] [place] [address] Performed By: #### 1 6570-4, 45879-6, 72340-8, 75227-1, 78475-3, 36500-4, 88599-2, 70008-1 #### [facility] CLIA [id number] [address] [place] [address] [place] Basophils/100 WBC (Bld) 0.9 % Normal [facility] Comment on above: Order Comment: Speci men Type: BLOOD SPECIMEN Ordering Facility: [facility] Address: [address] [place] [address] Performed By: #### 1 6570-4, 91700-1, 02358-7, 01658-5, 07019-8, 50595-8, 90310-9, 85789-0 #### [facility] CLIA [id number] [address] [place] [address] [place] Differential cell count method Nom (Bld) Auto Normal [facility] Comment on above: Order Comment: Speci men Type: BLOOD SPECIMEN Ordering Facility: [facility] Address: [address] [place] [address] Performed By: #### 1 6570-4, 56693-2, 11472-0, 58583-8, 67521-3, 11780-7, 30456-1, 99297-5 #### [facility] CLIA [id number] [address] [place] [address] [place] Eosinophils (Bld) [#/Vol] 0.23 10*3/uL Normal <0.46 [facility] Comment on above: Order Comment: Speci men Type: BLOOD SPECIMEN Ordering Facility: [facility] Address: [address] [place] [address] Performed By: #### 1 6570-4, 09530-0, 06460-8, 97090-9, 98552-3, 50085-2, 30623-7, 12577-6 #### [facility] CLIA [id number] [address] [place] [address] [place] Eosinophils/100 WBC (Bld) 3.9 % Normal [facility] Comment on above: Order Comment: Speci men Type: BLOOD SPECIMEN Ordering Facility: [facility] Address: [address] [place] [address] Performed By: #### 1 6570-4, 47037-7, 72026-1, 82777-0, 57594-2, 58513-7, 59477-9, 89711-6 #### [facility] CLIA [id number] [address] [place] [address] [place] Erythrocyte distribution width (RBC) [Ratio] 12.8 % Normal 11.5-15.0 [facility] Comment on above: Order Comment: Speci men Type: BLOOD SPECIMEN Ordering Facility: [facility] Address: [address] [place] [address] Performed By: #### 1 6570-4, 93274-1, 65842-9, 79816-9, 02265-2, 18829-1, 22832-1, 40938-0 #### [facility] CLIA [id number] [address] [place] [address] [place] Hematocrit (Bld) [Volume fraction] 43.5 % Normal 36.0-46.0 [facility] Comment on above: Order Comment: Speci men Type: BLOOD SPECIMEN Ordering Facility: [facility] Address: [address] [place] [address] Performed By: #### 1 6570-4, 95046-5, 45910-8, 58107-3, 31383-9, 41650-9, 19372-0, 30271-1 #### [facility] CLIA [id number] [address] [place] [address] [place] Hemoglobin (Bld) [Mass/Vol] 14.9 g/dL Normal 11.5-15.5 [facility] Comment on above: Order Comment: Speci men Type: BLOOD SPECIMEN Ordering Facility: [facility] Address: [address] [place] [address] Performed By: #### 1 6570-4, 95632-9, 82390-4, 58746-5, 19833-0, 47953-4, 83815-7, 70885-5 #### [facility] CLIA [id number] [address] [place] [address] [place] Immature granulocytes (Bld) [#/Vol] 0.03 10*3/uL Normal <0.10 [facility] Comment on above: Order Comment: Speci men Type: BLOOD SPECIMEN Ordering Facility: [facility] Address: [address] [place] [address] Performed By: #### 1 6570-4, 98825-0, 15852-8, 48670-4, 59200-5, 96961-8, 12665-9, 38455-8 #### [facility] CLIA [id number] [address] [place] [address] [place] Immature granulocytes/100 WBC (Bld) 0.5 % Normal [facility] Comment on above: Order Comment: Speci men Type: BLOOD SPECIMEN Ordering Facility: [facility] Address: [address] [place] [address] Performed By: #### 1 6570-4, 92895-5, 85301-2, 55951-5, 04824-7, 48924-9, 33501-1, 01023-9 #### [facility] CLIA [id number] [address] [place] [address] [place] Lymphocytes (Bld) [#/Vol] 0.92 10*3/uL Low 1.00-4.00 [facility] Comment on above: Order Comment: Speci men Type: BLOOD SPECIMEN Ordering Facility: [facility] Address: [address] [place] [address] Performed By: #### 1 6570-4, 89400-8, 56085-0, 06853-8, 17028-3, 02697-8, 70175-2, 37672-9 #### [facility] CLIA [id number] [address] [place] [address] [place] Lymphocytes/100 WBC (Bld) 15.8 % Normal [facility] Comment on above: Order Comment: Speci men Type: BLOOD SPECIMEN Ordering Facility: [facility] Address: [address] [place] [address] Performed By: #### 1 6570-4, 08413-1, 72645-4, 01081-4, 51615-7, 63900-5, 01521-2, 49161-8 #### [facility] CLIA [id number] [address] [place] [address] [place] MCH (RBC) [Entitic mass] 29.1 pg Normal 26.0-34.0 [facility] Comment on above: Order Comment: Speci men Type: BLOOD SPECIMEN Ordering Facility: [facility] Address: [address] [place] [address] Performed By: #### 1 6570-4, 79203-3, 68370-8, 92108-5, 72323-2, 26003-7, 58426-0, 38777-2 #### [facility] CLIA [id number] [address] [place] [address] [place] MCHC (RBC) [Mass/Vol] 34.3 g/dL Normal 30.5-36.0 [facility] Comment on above: Order Comment: Speci men Type: BLOOD SPECIMEN Ordering Facility: [facility] Address: [address] [place] [address] Performed By: #### 1 6570-4, 13661-3, 13966-4, 80972-6, 43278-6, 39299-5, 06790-9, 39817-8 #### [facility] CLIA [id number] [address] [place] [address] [place] MCV (RBC) [Entitic vol] 85.0 fL Normal 80.0-100.0 [facility] Comment on above: Order Comment: Speci men Type: BLOOD SPECIMEN Ordering Facility: [facility] Address: [address] [place] [address] Performed By: #### 1 6570-4, 82037-6, 42964-0, 28169-4, 50786-9, 32694-3, 85981-3, 46705-2 #### [facility] CLIA [id number] [address] [place] [address] [place] Monocytes (Bld) [#/Vol] 0.84 10*3/uL Normal <0.87 [facility] Comment on above: Order Comment: Speci men Type: BLOOD SPECIMEN Ordering Facility: [facility] Address: [address] [place] [address] Performed By: #### 1 6570-4, 37404-5, 86631-8, 56664-5, 56243-7, 77611-7, 86916-9, 16869-0 #### [facility] CLIA [id number] [address] [place] [address] [place] Monocytes/100 WBC (Bld) 14.4 % Normal [facility] Comment on above: Order Comment: Speci men Type: BLOOD SPECIMEN Ordering Facility: [facility] Address: [address] [place] [address] Performed By: #### 1 6570-4, 12489-6, 83546-4, 24589-0, 97546-5, 47235-5, 05776-0, 56839-1 #### [facility] CLIA [id number] [address] [place] [address] [place] Neutrophils (Bld) [#/Vol] 3.77 10*3/uL Normal 1.45-7.50 [facility] Comment on above: Order Comment: Speci men Type: BLOOD SPECIMEN Ordering Facility: [facility] Address: [address] [place] [address] Performed By: #### 1 6570-4, 18945-1, 76399-3, 47890-8, 15037-9, 71516-3, 52782-5, 77510-4 #### [facility] CLIA [id number] [address] [place] [address] [place] Neutrophils/100 WBC (Bld) 64.5 % Normal [facility] Comment on above: Order Comment: Speci men Type: BLOOD SPECIMEN Ordering Facility: [facility] Address: [address] [place] [address] Performed By: #### 1 6570-4, 80138-6, 47871-0, 76553-7, 00442-9, 91811-3, 04956-0, 99398-6 #### [facility] CLIA [id number] [address] [place] [address] [place] Nucleated RBC (Bld) [#/Vol] 10*3/uL Normal <0.01 [facility] Comment on above: Order Comment: Speci men Type: BLOOD SPECIMEN Ordering Facility: [facility] Address: [address] [place] [address] Performed By: #### 1 6570-4, 19322-6, 87186-1, 87230-3, 99005-0, 47182-1, 60062-1, 38709-1 #### [facility] CLIA [id number] [address] [place] [address] [place] Nucleated RBC/100 WBC (Bld) [Ratio] 0.0 /100 WBC Normal [facility] Comment on above: Order Comment: Speci men Type: BLOOD SPECIMEN Ordering Facility: [facility] Address: [address] [place] [address] Performed By: #### 1 6570-4, 40971-9, 40370-5, 07742-6, 19213-0, 30758-5, 32613-9, 16663-8 #### [facility] CLIA [id number] [address] [place] [address] [place] Platelet mean volume (Bld) [Entitic vol] 10.6 fL Normal 9.0-12.7 [facility] Comment on above: Order Comment: Speci men Type: BLOOD SPECIMEN Ordering Facility: [facility] Address: [address] [place] [address] Performed By: #### 1 6570-4, 83810-0, 54276-5, 09207-4, 26096-3, 59576-2, 17639-1, 43438-6 #### [facility] CLIA [id number] [address] [place] [address] [place] Platelets (Bld) [#/Vol] 168 10*3/uL Normal 150-400 [facility] Comment on above: Order Comment: Speci men Type: BLOOD SPECIMEN Ordering Facility: [facility] Address: [address] [place] [address] Performed By: #### 1 6570-4, 75835-8, 34105-1, 81453-3, 33007-2, 15828-7, 60371-9, 30715-2 #### [facility] CLIA [id number] [address] [place] [address] [place] RBC (Bld) [#/Vol] 5.12 10*6/uL Normal 3.90-5.[address] [facility] Comment on above: Order Comment: Speci men Type: BLOOD SPECIMEN Ordering Facility: [facility] Address: [address] [place] [address] Performed By: #### 1 6570-4, 35445-5, 83243-9, 28491-7, 16528-5, 05333-5, 66286-2, 30127-0 #### [facility] CLIA [id number] [address] [place] [address] [place] WBC (Bld) [#/Vol] 5.84 10*3/uL Normal 3.70-11.[address] [facility] Comment on above: Order Comment: Speci men Type: BLOOD SPECIMEN Ordering Facility: [facility] Address: [address] [place] [address] Performed By: #### 1 6570-4, 32926-5, 46509-2, 77714-7, 87587-2, 55755-1, 99349-8, 44105-2 #### [facility] CLIA [id number] [address] [place] [address] [place] CNOVon 09-20-2024 CNOV Office Visit (RHWSTR ) CONCEPCION DONALDSON ([id number]) 1940 F Date Time Provider Department 09/20/24 9:30 AM LEXIS ROCA During your visit today, we recorded the following information about you: Pulse Blood pressure Weight 71/minute 174/92 72.6 kg Lexis Roca PA-C 09/20/2024 10:51 AM Signed Rheumatology CONSULTATION Date of Service: 09/20/2024 Patient: Concepcion Donaldson Medical Record: [id number] Primary Care Physician: Preston Haney MD Last Rheumatology visit: None at [facility] Referring Provider: Elisabeth Hoff [address] [facility] [address] Concepcion Donaldson is here today at request of Elisabeth Hoff APRN.[facility] specifically for consultation of my opinion in regards to the chief complaint listed below. Correspondence will be shared today via the [employer] electronic health record or through regular mail, where applicable. History of Present Illness Concepcion Donaldson is a 83 year old White female who presents on 09/20/2024 for an in-person visit for evaluation of Joint Pain and Osteoarthritis. Concepcion reports a current pain level of 6 (Hand-Right). She describes the pain as Aching. The pain is Continuous, and has lasted for 1 Years. Interventions tried include Heat. She is currently taking prednisone. Concepcion is both RF - 9 (06/17/2015) and CCP - 13.5 (06/17/2015) negative. Her most recent ANNIE was negative (06/17/2015). 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 - started methotrexate 10 mg weekly with folic acid 2 mg and leucovorin 15 mg once weekly 04/03/24 - Synovitis in hands, shoulders, hips and intermittent synovitis in knees, ankles and feet. 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 - methotrexate was increased to 12.5 mg once weekly and folic acid 2 mg daily, and leucovorin 15 mg once weekly Per patient today: She was started on methotrexate back 03/02/24. Quit methotrexate use after diagnosed with gastric ulcer at [facility]. She thought the medication was starting to help, but she feels her hand pain has gotten worse since. Most of her pain today is in her hands. 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 The worst area of her pain is in the R R3rd PIP, as well as L 3rd PIP. Other areas of pain: chronic low back pain, Chiropractor every 5 weeks. Also does PT for the back. She has joint swelling and deformity in her hands, as well as her R great toe. Also having bilateral wrist pain. The hand pain came on gradually for years, worst over the last year. She has never taken prednisone. She had cortisone injection in her spine DDD of upper and lower, feet, shoulders, AM stiffness: not any longer than any sitting period. She notes gelling phenomenon after sitting for extended periods. Tylenol: 500 mg once daily - helps Uses arthritis Gloves. External imaging and Labs: X-ray pelvis 02/17/2024 No acute displaced fracture or dislocation. Mild degenerative changes of the hips. Chronic calcified structure in left lower quadrant. Chronic ossification inferior to the left ischial tuberosity 02/17/24 labs CBC- OK, low Ly%, High Jerome %, High EO%. CMP- hyponatremia 133 Sed rate normal 9 CRP<2.9 ANNIE negative CCP negative Rheumatoid factor negative Hepatitis B surface antigen and surface antibody nonreactive hepatitis C antibody nonreactive 03/27/24 labs CBC normal CMP low alk phos 43, hyponatremia 130, hypochloremia 97 06/03/24 labs CBC RDW CV 15.0 elevated Ly% 17.0 (low) Jerome % 12.8 (high) Immature Granulocytes 1% (high) - Left shift CMP - normal creatinine 0.8. 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 No RA, SLE, IBD, RHEUMATOLOGIC REVIEW OF SYSTEMS: Occasional ulcers in mouth , none in nose - relates to her dentures, not frequent No photosensenitivity No history of blood clots No miscarriages + fatigue - sometimes gets disoriented + history of Raynaud's - white, red blue No fevers Occasional red painful eyes - due to dryness + sicca, eyes. Occsaional dry mouth + sob with exertion and without - Not worked up much at this time (months) No cough + diarrhea, + constipation - IBS, chronic bowel incontinence + chronic back pain ? history of psoriasis per dermatology - she reports eczema and dry skin In scalp + morning stiffness- see above No weight loss + neuropathy bilateral feet, only during Raynaud's episodes Pain Evaluation 01/27/2021 07/18/2021 07/14/2023 08/19/2024 09/20/2024 Pain Evaluation Pain Score 4 6 8 4 4 6 Location Vagina Back-Lower Leg-Left F (more content not included)... [facility] (INTMWS) CONCEPCION DONALDSON ([id number]) 1940 F Date Time Provider Department 09/20/24 ELISABETH HOFF INTWS During your visit today, we recorded the following information about you: Elisabeth Hoff APRN.HOLISTIC NUTRITIONIST 09/20/2024 11:31 AM Signed Please let her know that blood pressure was elevated at her rheumatology visit today. Check to see if she would like to come in for a recheck of her blood pressure, but endorse this in 1-2 weeks if willing. (If present addition of calcium channel gregor may help with BP and Raynauds). She also noted feeling shortness of breath, endorse checking this as well. Last 14 Encounter BP Readings: Date: BP: 09/20/2024 174/92 07/20/2024 152/82 04/24/2024 130/70 01/20/2024 144/70 07/20/2023 132/66 02/07/2023 126/60 09/14/2022 128/84 08/17/2022 158/78 06/08/2022 132/60 12/15/2021 118/78 12/01/2021 140/70 09/08/2021 146/72 07/18/2021 128/62 06/26/2021 144/80 Dana Vargas LPN 09/20/2024 12:31 PM Signed Patient notified of providers message and verbalized understanding. Patient requested Byron Sutton. Appointment was made Allergies As of Date: 09/20/2024 Noted Allergy Reaction FOSAMAX (ALENDRONATE SODIUM) 07/13/2005 5 - Intolerance CODEINE 07/13/2005 5 - Intolerance NIACIN 07/13/2005 5 - Intolerance SULFA (SULFONAMIDE ANTIBIOTICS) 07/13/2005 5 - Intolerance Comments: Stomach pain VIOXX (ROFECOXIB) 07/13/2005 5 - Intolerance ZYRTEC (CETIRIZINE HCL) 07/13/2005 5 - Intolerance CELEBREX (CELECOXIB) 07/13/2005 2 - Rash GRASS POLLEN 01/10/2008 Comments: scratchy throat NITROFURANTOIN MONOHYD/M-CRYST 05/04/2021 5 - Intolerance Comments: Stomach pain PENICILLINS 07/13/2005 4 - Hives SUCRALFATE 07/20/2024 2 - Rash Comments: Generalized red rash; itching back of neck. 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 - omeprazole (PRILOSEC) 20 mg capsule Take 1 capsule by mouth two times a day. 1/2 HR BEFORE MEAL. - nortriptyline (PAMELOR) 25 mg capsule Take 1 capsule by mouth daily at bedtime. - calcitriol (ROCALTROL) 0.25 mcg capsule Take 1 capsule by mouth once daily. - lisinopril-hydroCHLOROt hiazide (ZESTORETIC) 20-12.5 mg per tablet Take 1 tablet by mouth two times a day. - lovastatin 40 mg tablet Take 1 tablet by mouth daily at bedtime. - metoprolol succinate ER (TOPROL XL) 50 mg 24 hr tablet Take 1 tablet by mouth every morning AND 0.5 tablets every afternoon. - estradiol (ESTRACE) 0.01 % (0.1 mg/gram) vaginal cream Use 1 g vaginally daily at bedtime for 14 days, THEN 1 g two times a week. - MINERAL OIL ORAL Take by mouth as needed (constipation). - cholecalciferol (VITAMIN D3) 50 mcg (2,000 unit) tablet Take 2,000 Units by mouth once daily. - polyethylene glycol 3350 (MIRALAX, GLYCOLAX) 17 gram/dose powder Take 17 g by mouth once daily. - aspirin, enteric coated (ASPIRIN, ENTERIC COATED) 81 mg EC tablet Take 1 tablet by mouth once daily. - Methylcellulose, Laxative, 500 mg tab TAKE TWO TABLETS TWICE DAILY - omega-3 fatty acids/vitamin e(FISH OIL 1,000 MG CAP) Take one(1) tablet daily. - THERAPEUTIC MULTIVITAMIN TAB Take one(1) tablet daily. 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.09] 08/03/2006 BENIGN PARXYSMAL VERTIGO [H81.10] 08/03/2006 Uterovaginal Prolapse, Incomplete [N81.2] 06/08/2007 09/29/2009 Postmenopausal atrophic vaginitis [N95.2] 06/08/2007 07/06/2016 Chronic GERD [K21.9] 07/25/2007 Urgency of urination [R39.15] 01/10/2008 07/06/2016 Urge Incontinence [N39.41] 01/10/2008 09/29/2009 Female Stress Incontinence [N39.3] 01/10/2008 09/29/2009 GASTRITIS ANTRAL( W/O Hemorrhage) [K29.60] 05/27/2008 07/06/2016 Incontinence of feces [787.6] 09/29/2009 03/23/2011 Rectocele [N81.6] 09/29/2009 Vision loss [H54.7] 04/21/2010 07/06/2016 IBS (irritable bowel syndrome) [K58.9] 07/22/2010 Rectal incontinence [R15.9] 03/23/2011 Eczema [L30.9] 07/01/2011 Other disorder of coccyx [M53.3] 05/05/2012 DDD (degenerative disc disease), cervical [M50.*09/10/2013 Medicare annual wellness visit, subsequent [Z00*05/29/2014 02/07/2023 Prediabetes [R73.03] 11/16/2015 Multinodular thyroid [E04.2] 11/16/2015 Deafness in left ear [H91.92] 07/06/2016 Persistent disorder of initiating or maintainin*04/26/2017 Spinal stenosis of lumbar region without neurog*03/04/2019 Encounter Status:Closed by DANA VARGAS on 09/08 (more content not included)... Normal [facility] CRP SerPl-mCncon 09-20-2024 CRP [Mass/Vol] mg/L Normal <0.9 [facility] Comment on above: Order Comment: Speci men Type: BLOOD SPECIMEN Ordering Facility: [facility] Address: [address] [place] [address] Performed By: #### 1 6570-4, 74575-7, 40155-1, 86008-4, 63239-8, 97986-0, 87733-5, 52240-7 #### [facility] CLIA [id number] [address] [place], [place] [address] [place] Centromere Ab IF Ql (S)on Centromere Ab Qn (S) <0.2 Normal <1.0 [facility] Comment on above: Order Comment: Kristofer dickinson Type: BLOOD SPECIMEN Ordering Facility: [facility] Address: [address] [place] [address] Result Comment: Anti -centromere antibody is used as in aid in diagnosis of systemic sclerosis. Clinical correlation is required. Test Methodology: Multiplex flow immunoassay. Performed By: #### 1 6570-4, 39858-2, 45637-2, 74365-6, 79969-8, 42633-1, 60751-8, 54765-7 #### [facility] CLIA [id number] [address] [place] [address] [place] CENTROMERE AB QUAL Negative Normal Negative [facility] Comment on above: Order Comment: Speci men Type: BLOOD SPECIMEN Ordering Facility: [facility] Address: [address] [place] [address] Performed By: #### 1 6570-4, 89328-5, 57899-1, 04298-1, 66315-3, 45153-8, 26156-7, 09145-9 #### [facility] CLIA [id number] [address] [place] [address] [place] Chromatin Ab Qnon 09-20-2024 CHROMATIN AB QUAL Negative Normal Negative [facility] Comment on above: Order Comment: Speci men Type: BLOOD SPECIMEN Ordering Facility: [facility] Address: [address] [place] [address] Performed By: #### 1 6570-4, 05624-7, 37854-7, 40700-3, 28051-6, 83688-5, 71194-8, 60781-9 #### [facility] CLIA [id number] [address] [place] [address] [place] Chromatin Ab SerPl-aCncon Chromatin Ab Qn <0.2 Normal <1.0 [facility] Comment on above: Order Comment: Speci men Type: BLOOD SPECIMEN Ordering Facility: [facility] Address: [address] [place] [address] Result Comment: Test Methodology: Multiplex flow immunoassay. Performed By: #### 1 6570-4, 99596-7, 11890-5, 73249-5, 75531-8, 26993-3, 53384-0, 98276-5 #### [facility] CLIA [id number] [address] [id number] [address] [place] Comprehensive metabolic 2000 panelOrdered By: Erica Monreal on 09-20-2024 Albumin [Mass/Vol] 4.5 g/dL 3.9 - 4.9 g/dL [facility] ALP [Catalytic activity/Vol] 51 U/L 34 - 123 U/L [facility] ALT [Catalytic activity/Vol] 12 U/L 7 - 38 U/L [facility] Anion gap [Moles/Vol] 11 mmol/L 8 - 15 mmol/L [facility] AST [Catalytic activity/Vol] 21 U/L 13 - 35 U/L [facility] Bilirubin [Mass/Vol] 0.4 mg/dL 0.2 - 1 .3 mg/dL [facility] Calcium [Mass/Vol] 10.1 mg/dL 8.5 - 10. 2 mg/dL [facility] Chloride [Moles/Vol] 92 mmol/L Low 98 - 10 7 mmol/L [facility] CO2 [Moles/Vol] 27 mmol/L 22 - 30 mmol/L [facility] Creatinine [Mass/Vol] 0.74 mg/dL 0.58 - 0.96 mg/dL [facility] GFR/1.73 sq M.predicted among non-blacks MDRD (S/P/Bld) [Vol rate/Area] 81 mL/min/{1.73_m2} - PINF [facility] Comment on above: Estimated Glomerular Filtration Rate (eGFR) is calculated using the 2020 CKD-EPI creatinine equation. This equation utilizes serum creatinine, sex, and age as parameters. The creatinine assay has traceable calibration to isotope dilution-mass spectrometry. Refer to KDIGO guidelines for clinical interpretation. In patients with unstable renal function, e.g. those with acute kidney injury, the eGFR may not accurately reflect actual GFR. Glucose [Mass/Vol] 89 mg/dL 74 - 99 mg/dL [facility] Comment on above: The [place] Diabete s Association (ADA) provides guidance for cutoff values for fasting glucose and random glucose. The ADA defines fasting as no caloric intake for at least 8 hours. Fasting plasma glucose results between 100 to 125 mg/dL indicate increased risk for diabetes (prediabetes). Fasting plasma glucose results greater than or equal to 126 mg/dL meet the criteria for diagnosis of diabetes. In the absence of unequivocal hyperglycemia, results should be confirmed by repeat testing. In a patient with classic symptoms of hyperglycemia or hyperglycemic crisis, random plasma glucose results greater than or equal to 200 mg/dL meet the criteria for diagnosis of diabetes. Reference: Standards of Medical Care in Diabetes 2016, [place] Diabetes Association. Diabetes Care. 2016.39(Suppl 1). Interpretation and review of laboratory results Abnormal [facility] Potassium [Moles/Vol] 3.8 mmol/L 3.7 - 5.1 mmol/L [facility] Protein [Mass/Vol] 7.3 g/dL 6.3 - 8.0 g/dL [facility] Sodium [Moles/Vol] 130 mmol/L Low 136 - 144 mmol/L [facility] Urea nitrogen [Mass/Vol] 14 mg/dL 7 - 21 mg/dL [facility] Comprehensive metabolic 2000 panelon 09-20-2024 Albumin [Mass/Vol] 4.5 g/dL Normal 3.9-4.9 [facility] Comment on above: Order Comment: Specifrah dickinson Type: BLOOD SPECIMEN Ordering Facility: [facility] Address: [address] [place] [address] Performed By: #### 1 6570-4, 42485-6, 72183-9, 89994-9, 15989-8, 98578-4, 24753-8, 92281-1 #### [facility] CLIA [id number] [address] [place] [address] [place] ALP [Catalytic activity/Vol] 51 U/L Normal 34-123 [facility] Comment on above: Order Comment: Kristofer dickinson Type: BLOOD SPECIMEN Ordering Facility: [facility] Address: [address] [place] [address] Performed By: #### 1 6570-4, 60724-2, 79988-9, 56169-6, 47298-2, 39811-6, 31272-1, 01322-2 #### [facility] CLIA [id number] [address] [place] [address] [place] ALT [Catalytic activity/Vol] 12 U/L Normal 7-38 [facility] Comment on above: Order Comment: Jenniferi men Type: BLOOD SPECIMEN Ordering Facility: [facility] Address: [address] [place] [address] Performed By: #### 1 6570-4, 04754-0, 94669-0, 67204-2, 10006-9, 39423-0, 30074-9, 39832-4 #### [facility] CLIA [id number] [address] [place] [address] [place] Anion gap [Moles/Vol] 11 mmol/L Normal 8-15 [facility] Comment on above: Order Comment: Speci men Type: BLOOD SPECIMEN Ordering Facility: [facility] Address: [address] [place] [address] Performed By: #### 1 6570-4, 99703-2, 84142-0, 46535-6, 81795-1, 33023-7, 75822-5, 17811-5 #### [facility] CLIA [id number] [address] [place] [address] [place] AST [Catalytic activity/Vol] 21 U/L Normal 13-35 [facility] Comment on above: Order Comment: Speci men Type: BLOOD SPECIMEN Ordering Facility: [facility] Address: [address] [place] [address] Performed By: #### 1 6570-4, 60493-6, 45510-2, 97736-5, 43457-1, 11210-5, 36324-0, 40819-7 #### [facility] CLIA [id number] [address] [place] [address] [place] Bilirubin [Mass/Vol] 0.4 mg/dL Normal 0.2-1.3 [facility] Comment on above: Order Comment: Speci men Type: BLOOD SPECIMEN Ordering Facility: [facility] Address: [address] [place] [address] Performed By: #### 1 6570-4, 63342-9, 25579-3, 95409-0, 11273-3, 79483-3, 02539-7, 68702-8 #### [facility] CLIA [id number] [address] [place] [address] [place] Calcium [Mass/Vol] 10.1 mg/dL Normal 8.5-10.2 [facility] Comment on above: Order Comment: Speci men Type: BLOOD SPECIMEN Ordering Facility: [facility] Address: [address] [place] [address] Performed By: #### 1 6570-4, 71996-1, 09126-5, 34106-4, 91220-1, 65911-9, 18469-9, 50861-5 #### [facility] CLIA [id number] [address] [place] [address] [place] Chloride [Moles/Vol] 92 mmol/L Low 98-107 [facility] Comment on above: Order Comment: Speci men Type: BLOOD SPECIMEN Ordering Facility: [facility] Address: [address] [place] [address] Performed By: #### 1 6570-4, 98553-6, 87902-9, 50590-5, 64240-8, 40101-2, 35954-1, 57680-8 #### [facility] CLIA [id number] [address] [place] [address] [place] CO2 [Moles/Vol] 27 mmol/L Normal 22-30 [facility] Comment on above: Order Comment: Speci men Type: BLOOD SPECIMEN Ordering Facility: [facility] Address: [address] [place] [address] Performed By: #### 1 6570-4, 95225-5, 52348-1, 92603-4, 71497-5, 95951-3, 75863-8, 50863-2 #### [facility] CLIA [id number] [address] [place] [address] [place] Creatinine [Mass/Vol] 0.74 mg/dL Normal 0.58-0.96 [facility] Comment on above: Order Comment: Kristofer dickinson Type: BLOOD SPECIMEN Ordering Facility: [facility] Address: [address] [place] [address] Performed By: #### 1 6570-4, 12582-2, 83521-1, 57725-0, 08324-1, 10414-6, 90698-9, 42038-7 #### [facility] CLIA [id number] [address] [place] [address] [place] Creatinine and Glomerular filtration rate.predicted panel (S/P/Bld) 81 mL/min/1.73m??? Normal >=60 [facility] Comment on above: Order Comment: Kristofer dickinson Type: BLOOD SPECIMEN Ordering Facility: [facility] Address: [address] [place] [address] Result Comment: Sravanthi mated Glomerular Filtration Rate (eGFR) is calculated using the 2020 CKD-EPI creatinine equation. This equation utilizes serum creatinine, sex, and age as parameters. The creatinine assay has traceable calibration to isotope dilution-mass spectrometry. Refer to KDIGO guidelines for clinical interpretation. In patients with unstable renal function, e.g. those with acute kidney injury, the eGFR may not accurately reflect actual GFR. Performed By: #### 1 6570-4, 44036-9, 40982-3, 86423-9, 39967-3, 59714-7, 16451-8, 91827-3 #### [facility] CLIA [id number] [address] [place] [address] [place] Glucose [Mass/Vol] 89 mg/dL Normal 74-99 [facility] Comment on above: Order Comment: Kristofer dickinson Type: BLOOD SPECIMEN Ordering Facility: [facility] Address: [address] [place] [address] Result Comment: The [place] Diabetes Association (ADA) provides guidance for cutoff values for fasting glucose and random glucose. The ADA defines fasting as no caloric intake for at least 8 hours. Fasting plasma glucose results between 100 to 125 mg/dL indicate increased risk for diabetes (prediabetes). Fasting plasma glucose results greater than or equal to 126 mg/dL meet the criteria for diagnosis of diabetes. In the absence of unequivocal hyperglycemia, results should be confirmed by repeat testing. In a patient with classic symptoms of hyperglycemia or hyperglycemic crisis, random plasma glucose results greater than or equal to 200 mg/dL meet the criteria for diagnosis of diabetes. Reference: Standards of Medical Care in Diabetes 2016, [place] [employer]. Diabetes Care. 2016.39(Suppl 1). Performed By: #### 1 6570-4, 52979-4, 77884-7, 06200-4, 98289-9, 49915-5, 42315-3, 76704-4 #### [facility] [facility] CLIA [id number] [address] [place] [address] [place] Potassium [Moles/Vol] 3.8 mmol/L Normal 3.7-5.1 [facility] Comment on above: Order Comment: Kristofer dickinson Type: BLOOD SPECIMEN Ordering Facility: [facility] Address: [address] [place] [address] Performed By: #### 1 6570-4, 24987-6, 72381-3, 36560-0, 12683-1, 78120-1, 87511-8, 11787-1 #### [facility] CLIA [id number] [address] [place] [address] [place] Protein [Mass/Vol] 7.3 g/dL Normal 6.3-8.0 [facility] Comment on above: Order Comment: Kristofer dickinson Type: BLOOD SPECIMEN Ordering Facility: [facility] Address: [address] [place] [address] Performed By: #### 1 6570-4, 74960-4, 88317-0, 84418-1, 29841-6, 39009-2, 62004-9, 29345-7 #### [facility] CLIA [id number] [address] [place] [address] [place] Sodium [Moles/Vol] 130 mmol/L Low 136-144 [facility] Comment on above: Order Comment: Jenniferi teena Type: BLOOD SPECIMEN Ordering Facility: [facility] Address: [address] [place] [address] Performed By: #### 1 6570-4, 73951-7, 31174-1, 11676-7, 26650-0, 20040-4, 49607-4, 75534-0 #### [facility] CLIA [id number] [address] [place] [address] [place] Urea nitrogen [Mass/Vol] 14 mg/dL Normal 7-21 [facility] Comment on above: Order Comment: Speci men Type: BLOOD SPECIMEN Ordering Facility: [facility] Address: [address] [place] [address] Performed By: #### 1 6570-4, 47451-2, 88119-1, 85601-1, 63938-2, 36684-6, 88039-9, 15435-7 #### [facility] CLIA [id number] [address] [place] [address] [place] Cyclic citrullinated peptide IgG Qnon 09-20-2024 CCP ANTIBODY IGG QUALITATIVE Negative Normal Negative [facility] Comment on above: Order Comment: Speci men Type: BLOOD SPECIMEN Ordering Facility: [facility] Address: [address] [place] [address] Performed By: #### 1 6570-4, 33930-1, 95352-8, 63935-9, 43067-3, 24807-3, 27398-0, 42893-1 #### [facility] CLIA [id number] [address] [place] [address] [place] BRENDA Jo1 Ab Ser-aCncon 2024 Elida-1 extractable nuclear Ab Qn (S) <0.2 Normal <1.0 [facility] Comment on above: Order Comment: Speci men Type: BLOOD SPECIMEN Ordering Facility: [facility] Address: [address] [place] [address] Performed By: #### 1 6570-4, 74082-1, 44940-2, 11901-6, 25810-0, 07253-9, 47690-4, 37652-0 #### [facility] CLIA [id number] [address] [place] [address] [place] BRENDA CASE MANAGEMENT RN Ab Ser-aCncon 2024 Ribonucleoprotein extractable nuclear Ab Qn (S) <0.2 Normal <1.0 [facility] Comment on above: Order Comment: Speci men Type: BLOOD SPECIMEN Ordering Facility: [facility] Address: [address] [place] [address] Performed By: #### 1 6570-4, 92344-5, 47432-4, 46460-5, 10068-8, 11654-1, 06435-5, 24014-4 #### [facility] CLIA [id number] [address] [place] [address] [place] BRENDA SM IgG Ser-aCncon 2024 Diaz extractable nuclear IgG Qn (S) <0.2 Normal <1.0 [facility] Comment on above: Order Comment: Speci men Type: BLOOD SPECIMEN Ordering Facility: [facility] Address: [address] [place] [address] Performed By: #### 1 6570-4, 37598-2, 06245-6, 85347-7, 74022-7, 65345-9, 41443-7, 73885-3 #### [facility] [place] [id number] [address] [place] [address] [place] BRENDA SS-A Ab Ser-aCncon 09-20 Sjogrens syndrome-A extractable nuclear Ab Qn (S) <0.2 Normal <1.0 [facility] Comment on above: Order Comment: Speci men Type: BLOOD SPECIMEN Ordering Facility: [facility] Address: [address] [place] [address] Result Comment: Test Methodology: Multiplex flow immunoassay. Performed By: #### 1 6570-4, 61734-7, 23521-0, 53422-9, 14436-2, 51625-2, 97952-9, 64078-9 #### [facility] CLIA [id number] [address] [place] [address] [place] BRENDA SS-B Ab Ser-aCncon 09-20 Sjogrens syndrome-B extractable nuclear Ab Qn (S) <0.2 Normal <1.0 [facility] Comment on above: Order Comment: Speci men Type: BLOOD SPECIMEN Ordering Facility: [facility] Address: [address] [place] [address] Result Comment: Anti -SSB (anti-La) antibody is used as an aid in diagnosis of a variety of systemic autoimmune diseases, especially for Sjogren's syndrome and systemic lupus erythematosus. Clinical correlation is required. Test Methodology: Multiplex flow immunoassay. Performed By: #### 1 6570-4, 24168-9, 87616-8, 26745-1, 55564-6, 24318-1, 27824-2, 48568-0 #### [facility] CLIA [id number] [address] [place] [address] [place] ESR Westergren method (Bld) [Velocity]on 09-20-2024 ESR (Bld) [Velocity] 2 mm/h Normal 0-20 [facility] Comment on above: Order Comment: Speci men Type: BLOOD SPECIMEN Ordering Facility: [facility] Address: [address] [place] [address] Performed By: #### 1 6570-4, 81000-8, 12025-1, 79771-2, 25480-9, 15130-7, 25144-5, 18690-8 #### [facility] [place] [id number] [address] [place] [address] [place] Elida-1 extractable nuclear Ab Qn (S)on 09-20-2024 ELIDA 1 ANTIBODY QUAL Negative Normal Negative [facility] Comment on above: Order Comment: Speci men Type: BLOOD SPECIMEN Ordering Facility: [facility] Address: [address] [place], [place] [id number] Result Comment: Anti -ELIDA-1 antibody is used as an aid in diagnosis of polymyositis and dermatomyositis especially with pulmonary involvement. A negative result cannot rule out polymyositis or dermatomyositis. Clinical correlation is required. Test Methodology: Multiplex flow immunoassay. Performed By: #### 1 6570-4, 22242-7, 15408-2, 26729-2, 06457-4, 84790-3, 29343-5, 10653-1 #### [facility] CLIA [id number] [address] [place] [address] [place] Rheumatoid fact SerPl-aCncon 09-20-2024 Rheumatoid factor Qn [IU]/mL Normal <16 [facility] Comment on above: Order Comment: Speci men Type: BLOOD SPECIMEN Ordering Facility: [facility] Address: [address] [place] [address] Performed By: #### 1 6570-4, 46581-0, 90589-2, 55321-9, 01277-5, 74689-4, 70665-5, 93489-4 #### [facility] CLIA [id number] [address] [place] [address] [place] Ribonucleoprotein extractabl e nuclear Ab Qn (S)on 09-20-2024 ANTI-CASE MANAGEMENT RN QUAL Negative Normal Negative [facility] Comment on above: Order Comment: Speci men Type: BLOOD SPECIMEN Ordering Facility: [facility] Address: [address] [place] [address] Performed By: #### 1 6570-4, 90300-8, 51643-5, 85921-4, 40942-2, 33430-2, 29059-9, 90748-1 #### [facility] CLIA [id number] [address] [place] [address] [place] RIBOSOMAL CASE MANAGEMENT RN QUAL Negative Normal Negative [facility] Comment on above: Order Comment: Speci men Type: BLOOD SPECIMEN Ordering Facility: [facility] Address: [address] [place] [address] Result Comment: Anti -Ribosomal RNA (Ribosomal P) antibody is used as an aid in diagnosis of systemic autoimmune diseases especially systemic lupus erythematosus and mixed connective tissue disease. Cross-reactivity with Anti-diaz antibody is not uncommon. Clinical correlation is required. Test Methodology: Multiplex flow immunoassay. Performed By: #### 1 6570-4, 44052-2, 18215-9, 09685-9, 72067-2, 69509-8, 97544-3, 68528-1 #### [facility] CLIA [id number] [address] [place] [address] [place] SCL-70 extractable nuclear I gG IA Qn (S)on 09-20-2024 SCLERODERMA AB QUAL Negative Normal Negative [facility] Comment on above: Order Comment: Speci men Type: BLOOD SPECIMEN Ordering Facility: [facility] Address: [address] [place] [address] Performed By: #### 1 6570-4, 35155-7, 16353-8, 72328-2, 32272-1, 84549-9, 57439-2, 28507-4 #### [facility] CLIA [id number] [address] [place] [address] [place] SCLERODERMA IGG AB <0.2 Normal <1.0 [facility] Comment on above: Order Comment: Speci men Type: BLOOD SPECIMEN Ordering Facility: [facility] Address: [address] [place] [address] Result Comment: Scl- 70/Scleroderma antibody test is used as an aid in diagnosis of systemic sclerosis especially the diffuse cutaneous form. A negative result cannot rule out systemic sclerosis. The final interpretation should consider clinical picture and other test results such as anti-centromere antibody. Test Methodology: Multiplex flow immunoassay. Performed By: #### 1 6570-4, 26547-4, 50813-1, 89289-3, 48871-6, 51844-9, 23684-8, 84575-4 #### [facility] CLIA [id number] [address] [place], [place] [address] [place] Sjogrens syndrome-A extracta ble nuclear Ab Qn (S)on 09-20-2024 SSA ANTIBODY QUAL Negative Normal Negative [facility] Comment on above: Order Comment: Speci men Type: BLOOD SPECIMEN Ordering Facility: [facility] Address: [address] [place] [address] Performed By: #### 1 6570-4, 27975-1, 65726-7, 54196-0, 80819-5, 47207-8, 92823-6, 40290-4 #### [facility] CLIA [id number] [address] [place] [address] [place] Sjogrens syndrome-B extracta ble nuclear Ab Qn (S)on 09-20-2024 SSB ANTIBODY QUAL Negative Normal Negative [facility] Comment on above: Order Comment: Speci men Type: BLOOD SPECIMEN Ordering Facility: [facility] Address: [address] [place] [address] Performed By: #### 1 6570-4, 94244-1, 01553-9, 27340-3, 93294-0, 73808-0, 36907-7, 50817-4 #### [facility] CLIA [id number] [address] [place] [address] [place] Diaz extractable nuclear Ig G Qn (S)on 09-20-2024 SM ANTIBODY QUAL Negative Normal Negative [facility] Comment on above: Order Comment: Speci men Type: BLOOD SPECIMEN Ordering Facility: [facility] Address: [address] [place] [address] Result Comment: Anti -Sm (Diaz) antibody is used as an aid in diagnosis of systemic lupus erythematosus and its presence is associated with renal disease. A negative result cannot rule out systemic lupus erythematosus. Clinical correlation is required. Test Methodology: Multiplex flow immunoassay. Performed By: #### 1 6570-4, 54701-5, 78848-3, 14822-1, 44854-6, 47717-8, 48021-6, 39200-3 #### [facility] CLIA [id number] [address] [place] [address] [place] Urate SerPl-mCncon 5 Urate [Mass/Vol] 7.1 mg/dL High 2.5-6.6 [facility] Comment on above: Order Comment: Speci men Type: BLOOD SPECIMEN Ordering Facility: [facility] Address: [address] [place] [address] Performed By: #### 1 6570-4, 43177-6, 14104-5, 45841-5, 80187-2, 08560-1, 74181-6, 00793-5 #### [facility] CLIA [id number] [address] [place] [address] [place] XR FOOT 3V AP/LAT/OBL BILon 09-20-2024 XR FOOT 3V AP/LAT/OBL TREV * * *Final Report* * * DATE OF EXAM: Sep 20 2024 11:00AM [id number] - XR FOOT 3V AP/LAT/OBL TREV / PROCEDURE REASON: multiple diagnoses * * * * Physician Interpretation * * * * EXAM: XR FOOT 3V AP/LAT/OBL TREV HISTORY: Primary osteoarthritis involving multiple joints Raynaud's disease without gangrene Shortness of breath Neuropathy. Osteoarthritis and neuropathy of both feet. Pain and swelling in the hand joints. Hx. of Raynaud's disease. TECHNIQUE: XR FOOT 3V AP/LAT/OBL TREV Laterality: BILATERAL Number of different views (projections): 3 COMPARISON: None. RESULT: Bone mineralization is normal without aggressive osseous lesion. No acute fracture or dislocation is present. Mild tibiotalar and mndw-tn-bluqzlem midfoot joint space narrowing with mild osteoarthropathy. Small calcaneal enthesophyte/bone spur on the left at the Achilles tendon insertion on the calcaneus. Mild hallux valgus of the right great toe. There is first metatarsal phalangeal joint narrowing and osteoarthropathy mild on the left and moderate on the right. There is some valgus angulation of the left hallux interphalangeal joint. Mild soft tissue prominence medial to the first metatarsal head likely bunion formation. There is some angulation of the distal fifth metatarsal suggesting remote healed traumatic or surgical changes. Mild soft tissue swelling dorsal forefoot. There are some degenerative changes along the bipartite right lateral sesamoid with some degenerative hypertrophy and sclerosis proximally. There is gross preservation of the tarsal arches. Note is made of mild prominence of the right Lisfranc joint space 0.4 cm. IMPRESSION: 1. Moderate osteoarthropathy right first metatarsal-phalangeal joint with other mild osteoarthropathy. 2. Hallux valgus of the right great toe. 3. Slight prominence of the right Lisfranc joint space 0.4 cm. Adjunct Lecturer: JUAN J Transcribe Date/Time: Sep 25 2024 7:18A Dictated by : MERLENE RODRIGUEZ MD This examination was interpreted and the report reviewed and electronically signed by: MERLENE RODRIGUEZ MD on Sep 25 2024 7:24AM EST [id number] Normal [facility] XR HAND 3V PA/LAT/OBL BILon 09-20-2024 XR HAND 3V PA/LAT/OBL TREV * * *Final Report* * * DATE OF EXAM: Sep 20 2024 11:00AM [id number] - XR HAND 3V PA/LAT/OBL TREV / PROCEDURE REASON: multiple diagnoses * * * * Physician Interpretation * * * * EXAMINATION: XR HAND 3V PA/LAT/OBL TREV HISTORY: osteoarthritis and neuropathy of both feet. Pain and swelling in the hand joints. Hx. of raynaud's disease. Bilateral hand pain Bilateral hand pain . TECHNIQUE: XR HAND 3V PA/LAT/OBL TREV Laterality: BILATERAL Number of different views (projections): 3 M: XB_1 COMPARISON: RESULT: Advanced first CMC degenerative changes bilaterally greater on the left with less severe triscaphe degenerative changes. Moderate scattered interphalangeal degenerative changes greatest at the right long finger PIP joint. Scattered periarticular nonspecific mineralizations. Mild subluxation at the right long finger PIP joint. No acute fracture or dislocation. There are no bony erosions. IMPRESSION: Degenerative changes as described. Adjunct Lecturer: JUAN J Transcribe Date/Time: Sep 24 2024 11:19A Dictated by : CLARE HUNTER MD This examination was interpreted and the report reviewed and electronically signed by: CLARE HUNTER MD on Sep 24 2024 11:20AM EST [id number] Normal [facility] cCP IgG SerPl-aCncon 025 Cyclic citrullinated peptide IgG Qn <15 Normal <20 [facility] Comment on above: Order Comment: Jenniferi men Type: BLOOD SPECIMEN Ordering Facility: [facility] Address: [address] [place] [address] Performed By: #### 1 6570-4, 90091-3, 79250-5, 84840-9, 53215-7, 12452-2, 60672-9, 93386-9 #### [facility] CLIA [id number] [address] [place] [address] [facility] CNPShanika 09-12-2024 CNPN Telephone (WSTR) [facility] ([id number]) 1940 F Date Time Provider Department 09/12/24 LEXIS ROCA [facility] During your visit today, we recorded the following information about you: Lexis Roca PA-C 09/12/2024 1:23 PM Signed External Records [facility] Received: Will Summarize as below: 03/02/24 - dx as inflammatory arthropathy with synovitis in hands, shoulders, hips, and intermittent synovitis in the knees ankles and feet. - started methotrexate 10 mg weekly with folic acid 2 mg and leucovorin 15 mg once weekly 04/03/24 - Synovitis in hands, shoulders, hips and intermittent synovitis in knees, ankles and feet. 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 - methotrexate was increased to 12.5 mg once weekly and folic acid 2 mg daily, and leucovorin 15 mg once weekly X-ray pelvis 02/17/2024 No acute displaced fracture or dislocation. Mild degenerative changes of the hips. Chronic calcified structure in left lower quadrant. Chronic ossification inferior to the left ischial tuberosity 02/17/24 labs CBC- OK, low Ly%, High Jerome %, High EO%. CMP- hyponatremia 133 Sed rate normal 9 CRP<2.9 ANNIE negative CCP negative Rheumatoid factor negative Hepatitis B surface antigen and surface antibody nonreactive hepatitis C antibody nonreactive 03/27/24 labs CBC normal CMP low alk phos 43, hyponatremia 130, hypochloremia 97 06/03/24 labs CBC RDW CV 15.0 elevated Ly% 17.0 (low) Jerome % 12.8 (high) Immature Granulocytes 1% (high) - Left shift CMP - normal creatinine 0.8. Elevated BUN/creatinine ratio 21.6 hyponatremia 128 hypochloremia 93 Allergies As of Date: 09/12/2024 Noted Allergy Reaction FOSAMAX (ALENDRONATE SODIUM) 07/13/2005 5 - Intolerance CODEINE 07/13/2005 5 - Intolerance NIACIN 07/13/2005 5 - Intolerance SULFA (SULFONAMIDE ANTIBIOTICS) 07/13/2005 5 - Intolerance Comments: Stomach pain VIOXX (ROFECOXIB) 07/13/2005 5 - Intolerance ZYRTEC (CETIRIZINE HCL) 07/13/2005 5 - Intolerance CELEBREX (CELECOXIB) 07/13/2005 2 - Rash GRASS POLLEN 01/10/2008 Comments: scratchy throat NITROFURANTOIN MONOHYD/M-CRYST 05/04/2021 5 - Intolerance Comments: Stomach pain PENICILLINS 07/13/2005 4 - Hives SUCRALFATE 07/20/2024 2 - Rash Comments: Generalized red rash; itching back of neck. Saw securities sales associate Date Reviewed: 07/20/2024 Reviewed by: Ratna Newberry LPN - Fully Assessed Reason for Visit: Received Outside Medical Records [[id number]] Cmt: [facility] notes and labs Prescriptions as of 09/12/2024 - omeprazole (PRILOSEC) 20 mg capsule Take 1 capsule by mouth two times a day. 1/2 HR BEFORE MEAL. - nortriptyline (PAMELOR) 25 mg capsule Take 1 capsule by mouth daily at bedtime. - calcitriol (ROCALTROL) 0.25 mcg capsule Take 1 capsule by mouth once daily. - lisinopril-hydroCHLOROt hiazide (ZESTORETIC) 20-12.5 mg per tablet Take 1 tablet by mouth two times a day. - lovastatin 40 mg tablet Take 1 tablet by mouth daily at bedtime. - metoprolol succinate ER (TOPROL XL) 50 mg 24 hr tablet Take 1 tablet by mouth every morning AND 0.5 tablets every afternoon. - estradiol (ESTRACE) 0.01 % (0.1 mg/gram) vaginal cream Use 1 g vaginally daily at bedtime for 14 days, THEN 1 g two times a week. - MINERAL OIL ORAL Take by mouth as needed (constipation). - cholecalciferol (VITAMIN D3) 50 mcg (2,000 unit) tablet Take 2,000 Units by mouth once daily. - polyethylene glycol 3350 (MIRALAX, GLYCOLAX) 17 gram/dose powder Take 17 g by mouth once daily. - aspirin, enteric coated (ASPIRIN, ENTERIC COATED) 81 mg EC tablet Take 1 tablet by mouth once daily. - Methylcellulose, Laxative, 500 mg tab TAKE TWO TABLETS TWICE DAILY - omega-3 fatty acids/vitamin e(FISH OIL 1,000 MG CAP) Take one(1) tablet daily. - THERAPEUTIC MULTIVITAMIN TAB Take one(1) tablet daily. 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9] 07/22/2010 Rectal incontinence [R15.9] 03/23/2011 Eczema [L30.9] 07/01/2011 Other disorder of coccyx [M53.3] 05/05/2012 DDD (degenerative (more content not included)... Normal [facility] DBT Breast - bilateral scree willian 08-21-2024 IMPRESSION: There is no mammographic evidence of malignancy in either breast. Routine screening mammogram is recommended. Annual mammogram will be due in 1 year. BI-RADS Category 1: Negative RISK: Based on the Tyrer-Cuzick (TC) risk assessment model, this patient has a 0.3% lifetime risk of developing breast cancer, meaning they are at average risk for developing breast cancer. However, this is only an estimate based on available history provided on the patient's questionnaire. We encourage all patients to talk with their providers about these results, further recommendations for managing breast health, and appropriate supplemental screening options if the patient has dense breast tissue. Interpreting Radiologist: Daniel Griffin M.D. Electronically signed on: 08/21/2024 Adjunct Lecturer: RAGHU Transcribindu Date/Time: Aug 21 2024 9:09A Dictated by: DANIEL GRIFFIN MD This examination was interpreted and the report reviewed and electronically signed by: DANIEL GRIFFIN MD on Aug 21 2024 4:07PM [facility] DIVISION OF RADIOLOGY * * *Final Report* * * DATE OF EXAM: Aug 21 2024 9:54AM [facility] 0582 - [facility] SCREENING W RIVAS / PROCEDURE REASON: Breast cancer screening by mammogram * * * * Physician Interpretation * * * * RESULT: [id number] [place] [address] #[id number] - [facility] SCREENING W RIVAS HISTORY: 83 year-old patient seen for screening and is asymptomatic in both breasts. Patient states no personal history of breast cancer. Patient states no personal history of ovarian cancer. COMPARISON STUDIES: The present examination has been compared to prior imaging studies dated 06/18/2019 (mammogram), 06/30/2020 (mammogram), 07/21/2021 (mammogram), 07/09/2022 (mammogram), 08/11/2022 (mammogram), 03/29/2023 (mammogram) and 08/19/2023 (mammogram). MAMMOGRAM TECHNIQUE: The study was acquired using full field digital technology and interpreted from soft copy. Digital Breast Tomosynthesis (DBT) images were obtained and used to assist in the interpretation of this examination. MAMMOGRAM FINDINGS: There are scattered areas of fibroglandular density. No suspicious masses, calcifications or other abnormalities are seen in either breast. There are no significant interval changes. Stable biopsy clip left breast. DIVISION OF RADIOLOGY Provider, [facility] - 08/21/2024 * * *Final Report* * * DATE OF EXAM: Aug 21 2024 9:54AM [facility] 0582 - [facility] SCREENING W RIVAS / PROCEDURE REASON: Breast cancer screening by mammogram * * * * Physician Interpretation * * * * RESULT: [place] [address] #[id number] - [facility] SCREENING W RIVAS HISTORY: 83 year-old patient seen for screening and is asymptomatic in both breasts. Patient states no personal history of breast cancer. Patient states no personal history of ovarian cancer. COMPARISON STUDIES: The present examination has been compared to prior imaging studies dated 06/18/2019 (mammogram), 06/30/2020 (mammogram), 07/21/2021 (mammogram), 07/09/2022 (mammogram), 08/11/2022 (mammogram), 03/29/2023 (mammogram) and 08/19/2023 (mammogram). MAMMOGRAM TECHNIQUE: The study was acquired using full field digital technology and interpreted from soft copy. Digital Breast Tomosynthesis (DBT) images were obtained and used to assist in the interpretation of this examination. MAMMOGRAM FINDINGS: There are scattered areas of fibroglandular density. No suspicious masses, calcifications or other abnormalities are seen in either breast. There are no significant interval changes. Stable biopsy clip left breast. IMPRESSION IMPRESSION: There is no mammographic evidence of malignancy in either breast. Routine screening mammogram is recommended. Annual mammogram will be due in 1 year. BI-RADS Category 1: Negative RISK: Based on the Tyrer-Cuzick (TC) risk assessment model, this patient has a 0.3% lifetime risk of developing breast cancer, meaning they are at average risk for developing breast cancer. However, this is only an estimate based on available history provided on the patient's questionnaire. We encourage all patients to talk with their providers about these results, further recommendations for managing breast health, and appropriate supplemental screening options if the patient has dense breast tissue. Interpreting Radiologist: Daniel Griffin M.D. Electronically signed on: 08/21/2024 Adjunct Lecturer: RAGHU Transcribe Date/Time: Aug 21 2024 9:09A Dictated by: DANIEL GRIFFIN MD This examination was interpreted and the report reviewed and electronically signed by: DANIEL GRIFFIN MD on Aug 21 2024 4:07PM EST [facility] Radiology Study observation (narrative) [facility] DBT Breast - bilateral scree ningOrdered By: Ccf Provider on 08-21-2024 [facility] CESAR SCREENING W TOMOon 08-21 CESAR SCREENING W RIVSA * * *Final Report* * * DATE OF EXAM: Aug 21 2024 9:54AM [id number] - CESAR SCREENING W RIVAS / PROCEDURE REASON: Breast cancer screening by mammogram * * * * Physician Interpretation * * * * RESULT: [facility] [place] [address] #[id number] - CESAR SCREENING W RIVAS HISTORY: 83 year-old patient seen for screening and is asymptomatic in both breasts. Patient states no personal history of breast cancer. Patient states no personal history of ovarian cancer. COMPARISON STUDIES: The present examination has been compared to prior imaging studies dated 06/18/2019 (mammogram), 06/30/2020 (mammogram), 07/21/2021 (mammogram), 07/09/2022 (mammogram), 08/11/2022 (mammogram), 03/29/2023 (mammogram) and 08/19/2023 (mammogram). MAMMOGRAM TECHNIQUE: The study was acquired using full field digital technology and interpreted from soft copy. Digital Breast Tomosynthesis (DBT) images were obtained and used to assist in the interpretation of this examination. MAMMOGRAM FINDINGS: There are scattered areas of fibroglandular density. No suspicious masses, calcifications or other abnormalities are seen in either breast. There are no significant interval changes. Stable biopsy clip left breast. IMPRESSION: There is no mammographic evidence of malignancy in either breast. Routine screening mammogram is recommended. Annual mammogram will be due in 1 year. BI-RADS Category 1: Negative RISK: Based on the Tyrer-Cuzick (TC) risk assessment model, this patient has a 0.3% lifetime risk of developing breast cancer, meaning they are at average risk for developing breast cancer. However, this is only an estimate based on available history provided on the patient's questionnaire. We encourage all patients to talk with their providers about these results, further recommendations for managing breast health, and appropriate supplemental screening options if the patient has dense breast tissue. Interpreting Radiologist: Daniel Griffin M.D. Electronically signed on: 08/21/2024 Adjunct Lecturer: RAGHU Transcribe Date/Time: Aug 21 2024 9:09A Dictated by: DANIEL GRIFFIN MD This examination was interpreted and the report reviewed and electronically signed by: DANIEL GRIFFIN MD on Aug 21 2024 4:07PM EST [id number] Normal [facility] Matthew 08-16-2024 [facility] CONCEPCION DONALDSON ([id number]) 1940 F Date Time Provider Department 08/16/24 LEXIS ROCA JUANPABLO During your visit today, we recorded the following information about you: Genesis Zuñiga RN 08/16/2024 4:14 PM Signed ----- Message from Lexis Roca APRN.[employer] CLERK sent at 08/16/2024 3:40 PM EST ----- This patient was seeing Dr. Madrid at [facility]. Scheduled next week. Can we request records? Thanks Genesis Peterson, RN 08/16/2024 4:16 PM Signed Jarek's office is closed on [phone] Ailin Everett MA 08/17/2024 9:58 AM Signed I called and spoke with scheduling desk at Dr. Madrid's office. They will fax records over. Labs were printed from [facility]. Ailin Everett MA 08/20/2024 8:06 AM Signed Records received via fax from Dr. Madrid's office. In folder for review. Allergies As of Date: 08/16/2024 Noted Allergy Reaction FOSAMAX (ALENDRONATE SODIUM) 07/13/2005 5 - Intolerance CODEINE 07/13/2005 5 - Intolerance NIACIN 07/13/2005 5 - Intolerance SULFA (SULFONAMIDE ANTIBIOTICS) 07/13/2005 5 - Intolerance Comments: Stomach pain VIOXX (ROFECOXIB) 07/13/2005 5 - Intolerance ZYRTEC (CETIRIZINE HCL) 07/13/2005 5 - Intolerance CELEBREX (CELECOXIB) 07/13/2005 2 - Rash GRASS POLLEN 01/10/2008 Comments: scratchy throat NITROFURANTOIN MONOHYD/M-CRYST 05/04/2021 5 - Intolerance Comments: Stomach pain PENICILLINS 07/13/2005 4 - Hives SUCRALFATE 07/20/2024 2 - Rash Comments: Generalized red rash; itching back of neck. Saw securities sales associate Date Reviewed: 07/20/2024 Reviewed by: Ratna Newberry LPN - Fully Assessed Reason for Visit: Request Outside Medical Records [[id number]] Prescriptions as of 08/20/2024 - omeprazole (PRILOSEC) 20 mg capsule Take 1 capsule by mouth two times a day. 1/2 HR BEFORE MEAL. - nortriptyline (PAMELOR) 25 mg capsule Take 1 capsule by mouth daily at bedtime. - calcitriol (ROCALTROL) 0.25 mcg capsule Take 1 capsule by mouth once daily. - lisinopril-hydroCHLOROt hiazide (ZESTORETIC) 20-12.5 mg per tablet Take 1 tablet by mouth two times a day. - lovastatin 40 mg tablet Take 1 tablet by mouth daily at bedtime. - metoprolol succinate ER (TOPROL XL) 50 mg 24 hr tablet Take 1 tablet by mouth every morning AND 0.5 tablets every afternoon. - estradiol (ESTRACE) 0.01 % (0.1 mg/gram) vaginal cream Use 1 g vaginally daily at bedtime for 14 days, THEN 1 g two times a week. - MINERAL OIL ORAL Take by mouth as needed (constipation). - cholecalciferol (VITAMIN D3) 50 mcg (2,000 unit) tablet Take 2,000 Units by mouth once daily. - polyethylene glycol 3350 (MIRALAX, GLYCOLAX) 17 gram/dose powder Take 17 g by mouth once daily. - aspirin, enteric coated (ASPIRIN, ENTERIC COATED) 81 mg EC tablet Take 1 tablet by mouth once daily. - Methylcellulose, Laxative, 500 mg tab TAKE TWO TABLETS TWICE DAILY - omega-3 fatty acids/vitamin e(FISH OIL 1,000 MG CAP) Take one(1) tablet daily. - THERAPEUTIC MULTIVITAMIN TAB Take one(1) tablet daily. 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.09] 08/03/2006 BENIGN PARXYSMAL VERTIGO [H81.10] 08/03/2006 Uterovaginal Prolapse, Incomplete [N81.2] 06/08/2007 09/29/2009 Postmenopausal atrophic vaginitis [N95.2] 06/08/2007 07/06/2016 Chronic GERD [K21.9] 07/25/2007 Urgency of urination [R39.15] 01/10/2008 07/06/2016 Urge Incontinence [N39.41] 01/10/2008 09/29/2009 Female Stress Incontinence [N39.3] 01/10/2008 09/29/2009 GASTRITIS ANTRAL( W/O Hemorrhage) [K29.60] 05/27/2008 07/06/2016 Incontinence of feces [787.6] 09/29/2009 03/23/2011 Rectocele [N81.6] 09/29/2009 Vision loss [H54.7] 04/21/2010 07/06/2016 IBS (irritable bowel syndrome) [K58.9] 07/22/2010 Rectal incontinence [R15.9] 03/23/2011 Eczema [L30.9] 07/01/2011 Other disorder of coccyx [M53.3] 05/05/2012 DDD (degenerative disc disease), cervical [M50.*09/10/2013 Medicare annual wellness visit, subsequent [Z00*05/29/2014 02/07/2023 Prediabetes [R73.03] 11/16/2015 Multinodular thyroid [E04.2] 11/16/2015 Deafness in left ear [H91.92] 07/06/2016 Persistent disorder of initiating or maintainin*04/26/2017 Spinal stenosis of lumbar region without neurog*03/04/2019 Encounter Status:Closed by AILIN EVERETT on 08/20/24 [facility] CNPNon 08-06-2024 CNPN Telephone (FAMPTW) CONCEPCION DONALDSON ([id number]) 1940 F Date Time Provider Department 08/06/24 PRESTON HANEY During your visit today, we recorded the following information about you: Kaci Dueñas 08/06/2024 4:15 PM Chilango Javier is calling Preston Haney MD today to request a prior authorization for the Omeprazole of 20 mg capsule taking two per day Per patient they will cover the 40 mg time release without a prior authorization Please send a PA for the 20 mg taking one by mouth two times a day if provider would like to keep that strength. Patient advised they will be sending a fax to our office to advise of this request Patient has been identified by name and birthdate. Duration of symptoms: ongoing Person calling: self Call patient at: at home [phone] (home) [phone] (cell) Was an appointment scheduled: No Closing statement: Prior Authorization Calls: Thank you for calling [facility], your call will be returned within the next 24 hours or next business day. [facility] Yolie Collazo LPN 08/06/2024 4:41 PM Signed Pt will need new rx for either dose. Yolie Collazo LPN 08/10/2024 3:40 PM Signed PA completed and approved for omeprazole 20mg one twice daily. PA approved from 08/10/24 to 08/10/2025. Preston Haney MD 08/10/2024 6:53 PM Signed The following approved medication requests have been transmitted electronically. Requested Prescriptions Signed Prescriptions Disp Refills omeprazole (PRILOSEC) 20 mg capsule 180 capsule 3 Sig: Take 1 capsule by mouth two times a day. 1/2 HR BEFORE MEAL. Authorizing Provider: PRESTON HANEY MD Allergies As of Date: 08/06/2024 Noted Allergy Reaction FOSAMAX (ALENDRONATE SODIUM) 07/13/2005 5 - Intolerance CODEINE 07/13/2005 5 - Intolerance NIACIN 07/13/2005 5 - Intolerance SULFA (SULFONAMIDE ANTIBIOTICS) 07/13/2005 5 - Intolerance Comments: Stomach pain VIOXX (ROFECOXIB) 07/13/2005 5 - Intolerance ZYRTEC (CETIRIZINE HCL) 07/13/2005 5 - Intolerance CELEBREX (CELECOXIB) 07/13/2005 2 - Rash GRASS POLLEN 01/10/2008 Comments: scratchy throat NITROFURANTOIN MONOHYD/M-CRYST 05/04/2021 5 - Intolerance Comments: Stomach pain PENICILLINS 07/13/2005 4 - Hives SUCRALFATE 07/20/2024 2 - Rash Comments: Generalized red rash; itching back of neck. Saw securities sales associate Date Reviewed: 07/20/2024 Reviewed by: Ratna Newberry LPN - Fully Assessed Reason for Visit: Insurance Authorization [1693] Order(s):omeprazole (PRILOSEC) 20 mg capsuleTake 1 capsule by mouth two times a day. 1/2 HR BEFORE MEAL.Disp: 180 capsuleRfl: 3 Prescriptions as of 08/13/2024 - omeprazole (PRILOSEC) 20 mg capsule Take 1 capsule by mouth two times a day. 1/2 HR BEFORE MEAL. - nortriptyline (PAMELOR) 25 mg capsule Take 1 capsule by mouth daily at bedtime. - calcitriol (ROCALTROL) 0.25 mcg capsule Take 1 capsule by mouth once daily. - lisinopril-hydroCHLOROt hiazide (ZESTORETIC) 20-12.5 mg per tablet Take 1 tablet by mouth two times a day. - lovastatin 40 mg tablet Take 1 tablet by mouth daily at bedtime. - metoprolol succinate ER (TOPROL XL) 50 mg 24 hr tablet Take 1 tablet by mouth every morning AND 0.5 tablets every afternoon. - estradiol (ESTRACE) 0.01 % (0.1 mg/gram) vaginal cream Use 1 g vaginally daily at bedtime for 14 days, THEN 1 g two times a week. - MINERAL OIL ORAL Take by mouth as needed (constipation). - cholecalciferol (VITAMIN D3) 50 mcg (2,000 unit) tablet Take 2,000 Units by mouth once daily. - polyethylene glycol 3350 (MIRALAX, GLYCOLAX) 17 gram/dose powder Take 17 g by mouth once daily. - aspirin, enteric coated (ASPIRIN, ENTERIC COATED) 81 mg EC tablet Take 1 tablet by mouth once daily. - Methylcellulose, Laxative, 500 mg tab TAKE TWO TABLETS TWICE DAILY - omega-3 fatty acids/vitamin e(FISH OIL 1,000 MG CAP) Take one(1) tablet daily. - THERAPEUTIC MULTIVITAMIN TAB Take one(1) tablet daily. Problem List As Of Date 08/06/2024 Noted Resolved Mixed hyperlipidemia [E78.2] 01/12/2006 Primary osteoarthritis involving multiple joint*01/12/2006 Primary hypertension [I10] 03/15/2006 CERVICALGIA [M54.2] 03/24/2006 RAYNAUD'S SYNDROME [I73.00] MENIERE DIS COCHLVESTIB [H81.09] 08/03/2006 BENIGN PARXYSMAL VERTIGO [H81.10] 08/03/2006 Uterovaginal Prolapse, Incomplete [N81.2] 06/08/2007 09/29/2009 Postmenopausal atrophic vaginitis [N95.2] 06/08/2007 07/06/2016 Chronic GERD [K21.9] 07/25/2007 Urgency of urination [R39.15] 01/10/2008 07/06/2016 Urge Incontinence [N39.41] 01/10/2008 09/29/2009 Female Stress Incontinence [N39.3] 01/10/2008 09/29/2009 GASTRITIS ANTRAL( W/O Hemorrhage) [K29.60] 05/27/2008 07/06/2016 Incontinence of feces [787.6] 09/29/2009 03/23/2011 Rectocele [N81.6] 09/29/2009 Vision loss [H54.7] 04/21/2010 07/06/2016 IBS (irritable bowel syndrome) [K58.9] 0 (more content not included)... Normal [facility] Gastroenterology Visit Repor ton 07-27-2024 Gastroenterology Visit Report [facility] [address] [place] [address] OFFICE VISIT Date of Service: 07/27/24 MR#: [id number] Acct: [id number] Name: MENDOZACONCEPCION Blanco Rep #: [id number] : 1940 Provider: Gavino Jay DO Age/Sex: 83/F Location: [facility] Status: Signed Intake Vital Signs 09/06/23 09:33 05/30/24 09:40 Height 5 ft 3 in 5 ft 3 in Intake Visit Reasons: 6 M FU Chief Complaint: follow up for c/o rectal bleeding Allergies Penicillins Allergy (Verified 07/27/24 09:58) hives nitrofurantoin Adverse Reaction (Intermediate, Verified 07/27/24 09:58) Other alendronate sodium (Fosamax) Adverse Reaction (Verified 07/27/24 09:58) Unknown celecoxib (From Celebrex) Adverse Reaction (Verified 07/27/24 09:58) Rash cetirizine (From Zyrtec) Adverse Reaction (Verified 05/30/24 09:31) Unknown codeine Adverse Reaction (Verified 07/27/24 09:58) Unknown niacin Adverse Reaction (Verified 07/27/24 09:58) Unknown rofecoxib (From Vioxx) Adverse Reaction (Verified 07/27/24 09:58) Unknown Sulfa (Sulfonamide Antibiotics) Adverse Reaction (Verified 07/27/24 09:58) intolerance Have you fallen in the past year?: No PFSH Medical History Wears dentures Wears hearing aid Wears glasses Cancer Arthritis High cholesterol Back pain History of hiatal hernia History of diverticulitis History of IBS Gastric reflux Non-smoker Shortness of breath on exertion History of pain when walking History of edema Hypertension History of echocardiogram History of stress test History of Holter monitoring Cardiology follow-up encounter Multinodular thyroid Benign paroxysmal positional vertigo, bilateral Osteoarthritis DDD (degenerative disc disease) Vision loss Uterovaginal prolapse, incomplete Essential (primary) hypertension Hyperlipidemia Raynaud disease Meniere disease IBS (irritable bowel syndrome) GERD (gastroesophageal reflux disease) Diverticulosis Surgical History Hx of tubal ligation History of carpal tunnel release of both wrists History of bunionectomy History of hysterectomy History of cholecystectomy History of carpal tunnel release Family History Mother Hypertension Brother Hypertension Father Heart disease Social History Smoking Status: Never smoker HPI HPI Chief Complaint: follow up for c/o rectal bleeding Details: CONCEPCION DONALDSON, is a 83 F who presents to the office today for follow up. *BGI established 6.3.22 constipation of days with no/hard stools alternating with frequent loose stools and smearing of feces on undergarments for the last 15 years. MiraLAX/Citrucel for several years; recently added alphonso seed which were helpful. ? SITZ study Day Three two ring R colon, five ring L colon, 11 ring RS colon, 18 total. Day five one ring R colon, two ring L colon, three ring RS colon, 6 total. OV 8.26.22 prefer weekly tap water enema for management of constipation. OV 11.18.22 recommend oil regimen to lubricate GI tract. Possible Linzess in the future OV 2.9.23 doing very well with regimen of MiraLAX, citrucel and alphonso. OV 9.8.23 continues mineral oil, miralax and alphonso seeds and finds this helpful but does have some days of soft urgent stools and small infrequent BM. This pattern is improved in normalcy from previous. OV 7.15.24 pt denies GI symptoms of concern at this time. Pt reports that her current regimen of mineral oil, miralax, alphonso seeds, and citrucel is working well for her; does endorse fecal incontinence but states that she does not want to be constipated. OV 10.11.24- Pt reports she has spotting blood today. States she has a hx of hemorrhoids. Has a BM daily. Last colonoscopy was in 2017. Takes Miralax, mineral oil, Citrucel, super greens daily and omeprazole daily. EGD 11..24- Normal esophagus, non-bleeding gastric ulcer with no stigmata of bleeding Colon- Bleeding external and internal hemorrhoids, diverticulosis, congested mucosa OV 1.17.25- Patient well since last visit. Has not had any rectal bleeding or issues with hemorrhoids since the scope. States her bowels have done a re-set since then as well. Has a BM daily but thinks she is not going as frequently as she should. On the other hand, she says she will have days where she will have multiple soft BMs daily. Is not having as many urgent episodes. Continues taking Miralax, Mineral oil, Citrucel and super greens. Denies heartburn. Continues with Omeprazole. States she sometimes takes it BID if she is having increased reflux. ROS Const Constitutional: Positive for fatigue, headache(s) and w (more content not included)... Normal [facility] CNOVon 07-20-2024 CNOV Office Visit (INTMWS ) CONCEPCION DONALDSON ([id number]) 1940 F Date Time Provider Department 07/20/24 9:40 AM PRESTON HANEY INTMWS During your visit today, we recorded the following information about you: Temperature Pulse Respiration Blood pressure 97.2 degrees 77/minute 16/minute 152/82 Weight 71.4 kg Preston Haney MD 08/19/2024 1:21 AM Signed This note was created using [employer]. Subjective Concepcion Donaldson is a 83 year old female. Patient presents with: F/U 6 months: Labs prior SUBJECTIVE: Concepcion Donaldson is a 83 year old year old lady here today for 6 month follow up appointment for review of medical conditions. Concepcion Donaldson is an 83-year-old female with a history of arthritis and peptic ulcer, presenting for a regular 6-month follow-up. Concepcion reports ongoing issues with arthritis and a peptic ulcer. She notes that her arthritis and ulcer are separate issues and not related to her medication use. She was previously prescribed sucralfate for her ulcer, which she discontinued due to a drug eruption. She was evaluated by a securities sales associate, who diagnosed the rash as a drug eruption secondary to sucralfate and prescribed triamcinolone acetonide 0.1% cream to be applied twice daily for 2 weeks, followed by 1 week off, and to repeat as needed. Concepcion reports the rash is located across her middle back, neck, and under her arms. She notes that the rash on her back and neck is pruritic, but the rash under her arms is not. She denies any history of psoriasis. She also mentions having a sebaceous cyst removed from her back. Concepcion reports that her arthritis symptoms were improving with methotrexate, but she discontinued the medication due to insurance issues. She expresses frustration with her insurance company, stating that they required additional information for the prescription, which was not provided. She is currently not taking any medication for her arthritis. Concepcion also reports issues with bowel movements, stating that her bowels are not moving as they should since her last colonoscopy. She notes that she is experiencing leakage and is using a lot of toilet paper and wipes. She is currently taking flaxseed and alphonso seed in her oatmeal and is using Miralax nightly. She denies any issues with constipation. Concepcion also reports a recent onset of a cough and rhinorrhea. She notes that the cough is worse in the morning and is associated with a runny nose. She denies any other symptoms. Concepcion is currently taking the following medications: nortriptyline 25 mg at bedtime, metoprolol, lisinopril HCTZ, lovastatin, and Estrace topical. She denies taking folic acid, leucovorin, or methotrexate. She also denies taking amitriptyline. Concepcion has a history of sciatica and is currently receiving treatment at a spine center in [place]. She reports that her symptoms are improving with physical therapy and chiropractic adjustments. She is using a back support when lifting and notes that it makes a big difference. Concepcion has a family history of diabetes, with her daughter and granddaughter both being diabetic. She reports that she is trying to watch her carbohydrate intake and is using omega-3 oils to help keep her triglycerides down. She denies any issues with her current diet. Concepcion has a DNR in place and is currently reviewing her will. She expresses concern about her DNR status and is unsure if it is still valid. She also reports that she is taking a baby aspirin 81 mg daily and is unsure if she should continue taking it due to her peptic ulcer. She denies any issues with her current medications. 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 Clemons Current Outpatient Medications Medication Sig estradiol (ESTRACE) 0.01 % (0.1 mg/gram) vaginal cream Use 1 g vaginally daily at bedtime for 14 days, THEN 1 g two times a week. omeprazole (PRILOSEC) 20 mg capsule Take 1 capsule by mouth two times a day. 1/2 HR BEFORE MEAL. MINERAL OIL ORAL Take by mouth as needed (constipation). cholecalciferol (VITAMIN D3) 50 mcg (2,000 unit) tablet Take 2,000 Units by mouth once daily. polyethylene glycol 3350 (MIRALAX, GLYCOLAX) 17 gram/dose powder Take 17 g by mouth once daily. Methylcellulose, Laxative, 500 mg tab TAKE TWO TABLETS TWICE DAILY omega-3 fatty acids/vitamin e(FISH OIL 1,0 (more content not included)... [facility] (FAM[facility] CONCEPCION DONALDSON ([id number]) 1940 F Date Time Provider Department 07/20/24 PRESTON HANEY During your visit today, we recorded the following information about you: Merlyn Pires 07/20/2024 12:10 PM Signed Patient will need an order placed for a consult to rheumatology, new provider starting in [place] by the end of the month and they would like to see her. Please contact patient when order is place so they can schedule. Thank you, Elisabeth Goyal APRN.HOLISTIC NUTRITIONIST 07/20/2024 3:20 PM Signed OV tofay with Preston Haney MD. Order filed. Dana Vargas LPN 07/20/2024 4:07 PM Signed Patient notified of providers message and verbalized understanding. Allergies As of Date: 07/20/2024 Noted Allergy Reaction FOSAMAX (ALENDRONATE SODIUM) 07/13/2005 5 - Intolerance CODEINE 07/13/2005 5 - Intolerance NIACIN 07/13/2005 5 - Intolerance SULFA (SULFONAMIDE ANTIBIOTICS) 07/13/2005 5 - Intolerance Comments: Stomach pain VIOXX (ROFECOXIB) 07/13/2005 5 - Intolerance ZYRTEC (CETIRIZINE HCL) 07/13/2005 5 - Intolerance CELEBREX (CELECOXIB) 07/13/2005 2 - Rash GRASS POLLEN 01/10/2008 Comments: scratchy throat NITROFURANTOIN MONOHYD/M-CRYST 05/04/2021 5 - Intolerance Comments: Stomach pain PENICILLINS 07/13/2005 4 - Hives SUCRALFATE 07/20/2024 2 - Rash Comments: Generalized red rash; itching back of neck. Saw securities sales associate Date Reviewed: 07/20/2024 Reviewed by: Ratna Newberry LPN - Fully Assessed Primary Visit Diagnosis: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] Order(s):CONSULT TO RHEUM/IMMUN DISEASE [9039] Order #: [id number]: 1 FUTURE Prescriptions as of 07/20/2024 - nortriptyline (PAMELOR) 25 mg capsule Take 1 capsule by mouth daily at bedtime. - calcitriol (ROCALTROL) 0.25 mcg capsule Take 1 capsule by mouth once daily. - lisinopril-hydroCHLOROt hiazide (ZESTORETIC) 20-12.5 mg per tablet Take 1 tablet by mouth two times a day. - lovastatin 40 mg tablet Take 1 tablet by mouth daily at bedtime. - metoprolol succinate ER (TOPROL XL) 50 mg 24 hr tablet Take 1 tablet by mouth every morning AND 0.5 tablets every afternoon. - omeprazole (PRILOSEC) 20 mg capsule Take 1 capsule by mouth two times a day. 1/2 HR BEFORE MEAL. - estradiol (ESTRACE) 0.01 % (0.1 mg/gram) vaginal cream Use 1 g vaginally daily at bedtime for 14 days, THEN 1 g two times a week. - omeprazole (PRILOSEC) 20 mg capsule Take 1 capsule by mouth two times a day. 1/2 HR BEFORE MEAL. - MINERAL OIL ORAL Take by mouth as needed (constipation). - cholecalciferol (VITAMIN D3) 50 mcg (2,000 unit) tablet Take 2,000 Units by mouth once daily. - polyethylene glycol 3350 (MIRALAX, GLYCOLAX) 17 gram/dose powder Take 17 g by mouth once daily. - aspirin, enteric coated (ASPIRIN, ENTERIC COATED) 81 mg EC tablet Take 1 tablet by mouth once daily. - Methylcellulose, Laxative, 500 mg tab TAKE TWO TABLETS TWICE DAILY - omega-3 fatty acids/vitamin e(FISH OIL 1,000 MG CAP) Take one(1) tablet daily. - THERAPEUTIC MULTIVITAMIN TAB Take one(1) tablet daily. Problem List As Of Date 07/20/2024 Noted Resolved Mixed hyperlipidemia [E78.2] 01/12/2006 Primary osteoarthritis involving multiple joint*01/12/2006 Primary hypertension [I10] 03/15/2006 CERVICALGIA [M54.2] 03/24/2006 RAYNAUD'S SYNDROME [I73.00] MENIERE DIS COCHLVESTIB [H81.09] 08/03/2006 BENIGN PARXYSMAL VERTIGO [H81.10] 08/03/2006 Uterovaginal Prolapse, Incomplete [N81.2] 06/08/2007 09/29/2009 Postmenopausal atrophic vaginitis [N95.2] 06/08/2007 07/06/2016 Chronic GERD [K21.9] 07/25/2007 Urgency of urination [R39.15] 01/10/2008 07/06/2016 Urge Incontinence [N39.41] 01/10/2008 09/29/2009 Female Stress Incontinence [N39.3] 01/10/2008 09/29/2009 GASTRITIS ANTRAL( W/O Hemorrhage) [K29.60] 05/27/2008 07/06/2016 Incontinence of feces [787.6] 09/29/2009 03/23/2011 Rectocele [N81.6] 09/29/2009 Vision loss [H54.7] 04/21/2010 07/06/2016 IBS (irritable bowel syndrome) [K58.9] 07/22/2010 Rectal incontinence [R15.9] 03/23/2011 Eczema [L30.9] 07/01/2011 Other disorder of coccyx [M53.3] 05/05/2012 DDD (degenerative disc disease), cervical [M50.*09/10/2013 Medicare annual wellness visit, subsequent [Z00*05/29/2014 02/07/2023 Prediabetes [R73.03] 11/16/2015 Multinodular thyroid [E04.2] 11/16/2015 Deafness in left ear [H91.92] 07/06/2016 Persistent disorder of initiating or maintainin*04/26/2017 Spinal stenosis of lumbar region without neurog*03/04/2019 Encounter Status:Closed by DANA VARGAS on 07/20/24 Normal [facility] 25(OH)D3 SerPl-ncon 2024 25-hydroxyvitamin D3 [Mass/Vol] 69.7 ng/mL Normal 31.0-80.0 [facility] Comment on above: Order Comment: Speci men Type: BLOOD SPECIMEN Ordering Facility: [facility] Address: [address] [place] [address] Performed By: #### 1 6570-4, 60606-6, 30851-8, 98332-7, 30522-1, 62965-4, 86048-3, 97152-5 #### [facility] CLIA [id number] [address] [place] [address] [place] CBC W Auto Differential pane l (Bld)on 07-12-2024 Basophils (Bld) [#/Vol] 0.04 10*3/uL Normal <0.11 [facility] Comment on above: Order Comment: Speci men Type: BLOOD SPECIMEN Ordering Facility: [facility] Address: [address] [place] [address] Performed By: #### 1 6570-4, 20885-6, 40978-2, 01604-0, 66799-9, 79500-2, 23441-2, 58382-6 #### [facility] CLIA [id number] [address] [place] [address] [place] Basophils/100 WBC (Bld) 0.9 % Normal [facility] Comment on above: Order Comment: Speci men Type: BLOOD SPECIMEN Ordering Facility: [facility] Address: [address] [place] [address] Performed By: #### 1 6570-4, 01314-6, 74570-4, 42918-4, 00552-8, 22312-8, 97922-1, 54817-5 #### [facility] CLIA [id number] [address] [place] [address] [place] Differential cell count method Nom (Bld) Auto Normal [facility] Comment on above: Order Comment: Speci men Type: BLOOD SPECIMEN Ordering Facility: [facility] Address: [address] [place] [address] Performed By: #### 1 6570-4, 53309-4, 29389-2, 30611-1, 83368-3, 02867-2, 71899-1, 29561-8 #### [facility] CLIA [id number] [address] [place] [address] [place] Eosinophils (Bld) [#/Vol] 0.26 10*3/uL Normal <0.46 [facility] Comment on above: Order Comment: Speci men Type: BLOOD SPECIMEN Ordering Facility: [facility] Address: [address] [place] [address] Performed By: #### 1 6570-4, 06300-5, 24797-7, 67652-4, 74767-0, 68451-2, 85666-0, 31302-1 #### [facility] CLIA [id number] [address] [place] [address] [place] Eosinophils/100 WBC (Bld) 5.5 % Normal [facility] Comment on above: Order Comment: Speci men Type: BLOOD SPECIMEN Ordering Facility: [facility] Address: [address] [place] [address] Performed By: #### 1 6570-4, 63539-1, 64317-0, 99012-2, 17987-0, 01379-2, 04265-9, 77240-7 #### [facility] CLIA [id number] [address] [place] [address] [place] Erythrocyte distribution width (RBC) [Ratio] 13.2 % Normal 11.5-15.0 [facility] Comment on above: Order Comment: Speci men Type: BLOOD SPECIMEN Ordering Facility: [facility] Address: [address] [place] [address] Performed By: #### 1 6570-4, 65762-8, 58143-1, 33013-9, 67404-0, 15797-5, 57936-7, 88723-2 #### [facility] CLIA [id number] [address] [place] [address] [place] Hematocrit (Bld) [Volume fraction] 45.3 % Normal 36.0-46.0 [facility] Comment on above: Order Comment: Speci men Type: BLOOD SPECIMEN Ordering Facility: [facility] Address: [address] [place] [address] Performed By: #### 1 6570-4, 64063-7, 49948-7, 80907-3, 67890-8, 71528-9, 83468-4, 06749-9 #### [facility] CLIA [id number] [address] [place] [address] [place] Hemoglobin (Bld) [Mass/Vol] 15.5 g/dL Normal 11.5-15.5 [facility] Comment on above: Order Comment: Speci men Type: BLOOD SPECIMEN Ordering Facility: [facility] Address: [address] [place] [address] Performed By: #### 1 6570-4, 90348-1, 11657-7, 58789-5, 45745-9, 28368-7, 25074-5, 17005-2 #### [facility] CLIA [id number] [address] [place] [address] [place] Immature granulocytes (Bld) [#/Vol] 0.08 10*3/uL Normal <0.10 [facility] Comment on above: Order Comment: Speci men Type: BLOOD SPECIMEN Ordering Facility: [facility] Address: [address] [place] [address] Performed By: #### 1 6570-4, 07517-8, 33435-4, 59568-9, 69951-6, 62634-5, 38582-2, 52964-1 #### [facility] CLIA [id number] [address] [place] [address] [place] Immature granulocytes/100 WBC (Bld) 1.7 % Normal [facility] Comment on above: Order Comment: Speci men Type: BLOOD SPECIMEN Ordering Facility: [facility] Address: [address] [place] [address] Performed By: #### 1 6570-4, 60300-2, 99678-4, 38606-0, 47364-5, 13803-8, 07131-2, 30223-2 #### [facility] CLIA [id number] [address] [place] [address] [place] Lymphocytes (Bld) [#/Vol] 0.95 10*3/uL Low 1.00-4.00 [facility] Comment on above: Order Comment: Speci men Type: BLOOD SPECIMEN Ordering Facility: [facility] Address: [address] [place] [address] Performed By: #### 1 6570-4, 44592-8, 53517-9, 25976-3, 53592-6, 76910-8, 90470-0, 22053-5 #### [facility] CLIA [id number] [address] [place] [address] [place] Lymphocytes/100 WBC (Bld) 20.3 % Normal [facility] Comment on above: Order Comment: Speci men Type: BLOOD SPECIMEN Ordering Facility: [facility] Address: [address] [place] [address] Performed By: #### 1 6570-4, 92969-3, 02930-2, 17823-9, 25335-9, 60604-7, 30619-8, 37613-2 #### [facility] CLIA [id number] [address] [place] [address] [place] MCH (RBC) [Entitic mass] 29.6 pg Normal 26.0-34.0 [facility] Comment on above: Order Comment: Speci men Type: BLOOD SPECIMEN Ordering Facility: [facility] Address: [address] [place] [address] Performed By: #### 1 6570-4, 68018-2, 71181-1, 33763-9, 51917-6, 96418-3, 91252-4, 37801-6 #### [facility] CLIA [id number] [address] [place] [address] [place] MCHC (RBC) [Mass/Vol] 34.2 g/dL Normal 30.5-36.0 [facility] Comment on above: Order Comment: Speci men Type: BLOOD SPECIMEN Ordering Facility: [facility] Address: [address] [place] [address] Performed By: #### 1 6570-4, 22142-4, 21240-6, 34531-7, 15485-7, 81646-8, 32479-3, 17680-0 #### [facility] CLIA [id number] [address] [place] [address] [place] MCV (RBC) [Entitic vol] 86.5 fL Normal 80.0-100.0 [facility] Comment on above: Order Comment: Speci men Type: BLOOD SPECIMEN Ordering Facility: [facility] Address: [address] [place] [address] Performed By: #### 1 6570-4, 09536-3, 20344-8, 19636-3, 00513-5, 73524-3, 28682-9, 29970-9 #### [facility] CLIA [id number] [address] [place] [address] [place] Monocytes (Bld) [#/Vol] 0.66 10*3/uL Normal <0.87 [facility] Comment on above: Order Comment: Speci men Type: BLOOD SPECIMEN Ordering Facility: [facility] Address: [address] [place] [address] Performed By: #### 1 6570-4, 48197-4, 55718-4, 69454-9, 65811-4, 13580-8, 01314-5, 88571-3 #### [facility] CLIA [id number] [address] [place] [address] [place] Monocytes/100 WBC (Bld) 14.1 % Normal [facility] Comment on above: Order Comment: Speci men Type: BLOOD SPECIMEN Ordering Facility: [facility] Address: [address] [place] [address] Performed By: #### 1 6570-4, 95116-9, 75948-7, 94726-6, 11668-7, 94179-0, 87717-2, 30344-5 #### [facility] CLIA [id number] [address] [place] [address] [place] Neutrophils (Bld) [#/Vol] 2.70 10*3/uL Normal 1.45-7.50 [facility] Comment on above: Order Comment: Speci men Type: BLOOD SPECIMEN Ordering Facility: [facility] Address: [address] [place] [address] Performed By: #### 1 6570-4, 40164-1, 85115-8, 04384-0, 35543-6, 57742-8, 91975-8, 29990-9 #### [facility] CLIA [id number] [address] [place] [address] [place] Neutrophils/100 WBC (Bld) 57.5 % Normal [facility] Comment on above: Order Comment: Speci men Type: BLOOD SPECIMEN Ordering Facility: [facility] Address: [address] [place] [address] Performed By: #### 1 6570-4, 00756-9, 02957-3, 14375-6, 63148-6, 32608-2, 53835-5, 54018-0 #### [facility] CLIA [id number] [address] [place] [address] [place] Nucleated RBC (Bld) [#/Vol] 10*3/uL Normal <0.01 [facility] Comment on above: Order Comment: Speci men Type: BLOOD SPECIMEN Ordering Facility: [facility] Address: [address] [place] [address] Performed By: #### 1 6570-4, 12973-2, 71080-1, 05566-9, 86550-5, 67744-1, 39605-9, 09214-3 #### [facility] CLIA [id number] [address] [place] [address] [place] Nucleated RBC/100 WBC (Bld) [Ratio] 0.0 /100 WBC Normal [facility] Comment on above: Order Comment: Speci men Type: BLOOD SPECIMEN Ordering Facility: [facility] Address: [address] [place] [address] Performed By: #### 1 6570-4, 80135-8, 32044-5, 00357-6, 37774-4, 12875-0, 46863-8, 73775-6 #### [facility] CLIA [id number] [address] [place] [address] [place] Platelet mean volume (Bld) [Entitic vol] 10.4 fL Normal 9.0-12.7 [facility] Comment on above: Order Comment: Speci men Type: BLOOD SPECIMEN Ordering Facility: [facility] Address: [address] [place] [address] Performed By: #### 1 6570-4, 84016-3, 39966-9, 47765-1, 42366-6, 49845-4, 55631-3, 03542-3 #### [facility] CLIA [id number] [address] [place] [address] [place] Platelets (Bld) [#/Vol] 192 10*3/uL Normal 150-400 [facility] Comment on above: Order Comment: Speci men Type: BLOOD SPECIMEN Ordering Facility: [facility] Address: [address] [place] [address] Performed By: #### 1 6570-4, 90456-6, 33619-1, 83527-1, 22084-9, 07291-2, 57342-5, 91268-8 #### [facility] CLIA [id number] [address] [place] [address] [place] RBC (Bld) [#/Vol] 5.24 10*6/uL High 3.90-5.[address] [facility] Comment on above: Order Comment: Speci men Type: BLOOD SPECIMEN Ordering Facility: [facility] Address: [address] [place] [address] Performed By: #### 1 6570-4, 86533-7, 68577-1, 86082-4, 89105-9, 51049-7, 41320-0, 39012-9 #### [facility] CLIA [id number] [address] [place] [address] [place] WBC (Bld) [#/Vol] 4.69 10*3/uL Normal 3.70-11.[address] [facility] Comment on above: Order Comment: Speci men Type: BLOOD SPECIMEN Ordering Facility: [facility] Address: [address] [place] [address] Performed By: #### 1 6570-4, 24682-5, 31905-7, 98714-2, 30954-2, 68686-5, 40357-1, 20146-4 #### [facility] CLIA [id number] [address] [place] [address] [place] Comprehensive metabolic 2000 panelon 07-12-2024 Albumin [Mass/Vol] 4.4 g/dL Normal 3.9-4.9 [facility] Comment on above: Order Comment: Speci men Type: BLOOD SPECIMEN Ordering Facility: [facility] Address: [address] [place] [address] Performed By: #### 1 6570-4, 85125-2, 84157-6, 51041-6, 45057-6, 81044-0, 89045-3, 26644-9 #### [facility] CLIA [id number] [address] [place] [address] [place] ALP [Catalytic activity/Vol] 54 U/L Normal 34-123 [facility] Comment on above: Order Comment: Speci men Type: BLOOD SPECIMEN Ordering Facility: [facility] Address: [address] [place] [address] Performed By: #### 1 6570-4, 48002-6, 98782-8, 36661-3, 23093-4, 33908-1, 41817-1, 39314-3 #### [facility] CLIA [id number] [address] [place] [address] [place] ALT [Catalytic activity/Vol] 13 U/L Normal 7-38 [facility] Comment on above: Order Comment: Speci men Type: BLOOD SPECIMEN Ordering Facility: [facility] Address: [address] [place] [address] Performed By: #### 1 6570-4, 53665-1, 90346-3, 85055-9, 52212-5, 23443-6, 86888-4, 85778-8 #### [facility] CLIA [id number] [address] [place] [address] [place] Anion gap [Moles/Vol] 14 mmol/L Normal 8-15 [facility] Comment on above: Order Comment: Speci men Type: BLOOD SPECIMEN Ordering Facility: [facility] Address: [address] [place] [address] Performed By: #### 1 6570-4, 30549-0, 43358-2, 07651-8, 60090-3, 84273-9, 68507-4, 04958-0 #### [facility] CLIA [id number] [address] [place] [address] [place] AST [Catalytic activity/Vol] 23 U/L Normal 13-35 [facility] Comment on above: Order Comment: Speci men Type: BLOOD SPECIMEN Ordering Facility: [facility] Address: [address] [place] [address] Performed By: #### 1 6570-4, 20502-7, 71717-9, 55637-8, 87002-2, 90986-9, 32782-3, 66366-6 #### [facility] CLIA [id number] [address] [place] [address] [place] Bilirubin [Mass/Vol] 0.5 mg/dL Normal 0.2-1.3 [facility] Comment on above: Order Comment: Speci men Type: BLOOD SPECIMEN Ordering Facility: [facility] Address: [address] [place] [address] Performed By: #### 1 6570-4, 27389-4, 63714-1, 14431-4, 77146-2, 55638-8, 85593-8, 18620-3 #### [facility] CLIA [id number] [address] [place] [address] [place] Calcium [Mass/Vol] 10.2 mg/dL Normal 8.5-10.2 [facility] Comment on above: Order Comment: Speci men Type: BLOOD SPECIMEN Ordering Facility: [facility] Address: [address] [place] [address] Performed By: #### 1 6570-4, 62514-9, 94301-1, 05978-0, 15718-3, 46869-3, 38315-9, 61449-4 #### [facility] CLIA [id number] [address] [place] [address] [place] Chloride [Moles/Vol] 93 mmol/L Low 98-107 [facility] Comment on above: Order Comment: Speci men Type: BLOOD SPECIMEN Ordering Facility: [facility] Address: [address] [place] [address] Performed By: #### 1 6570-4, 04115-1, 54537-4, 20854-7, 19302-0, 48924-9, 94892-2, 08950-4 #### [facility] CLIA [id number] [address] [place] [address] [place] CO2 [Moles/Vol] 27 mmol/L Normal 22-30 [facility] Comment on above: Order Comment: Speci men Type: BLOOD SPECIMEN Ordering Facility: [facility] Address: [address] [place] [address] Performed By: #### 1 6570-4, 42389-4, 45508-1, 69692-0, 98409-9, 54169-0, 68420-3, 88485-5 #### [facility] CLIA [id number] [address] [place] [address] [place] Creatinine [Mass/Vol] 0.84 mg/dL Normal 0.58-0.96 [facility] Comment on above: Order Comment: Speci men Type: BLOOD SPECIMEN Ordering Facility: [facility] Address: [address] [place] [address] Performed By: #### 1 6570-4, 98178-8, 57819-8, 45014-5, 93270-7, 51861-0, 16842-3, 06910-7 #### [facility] CLIA [id number] [address] [place] [address] [place] Creatinine and Glomerular filtration rate.predicted panel (S/P/Bld) 69 mL/min/1.73m??? Normal >=60 [facility] Comment on above: Order Comment: Speci men Type: BLOOD SPECIMEN Ordering Facility: [facility] Address: [address] [place] [address] Result Comment: Sravanthi mated Glomerular Filtration Rate (eGFR) is calculated using the 2020 CKD-EPI creatinine equation. This equation utilizes serum creatinine, sex, and age as parameters. The creatinine assay has traceable calibration to isotope dilution-mass spectrometry. Refer to KDIGO guidelines for clinical interpretation. In patients with unstable renal function, e.g. those with acute kidney injury, the eGFR may not accurately reflect actual GFR. Performed By: #### 1 6570-4, 50210-7, 96417-6, 01422-7, 76551-5, 40471-7, 15862-4, 46060-9 #### [facility] CLIA [id number] [address] [place], [place] [id number] [place] Glucose [Mass/Vol] 101 mg/dL High 74-99 [facility] Comment on above: Order Comment: Kristofer dickinson Type: BLOOD SPECIMEN Ordering Facility: [facility] Address: [address] [place] [address] Result Comment: The [place] [employer] (ADA) provides guidance for cutoff values for fasting glucose and random glucose. The ADA defines fasting as no caloric intake for at least 8 hours. Fasting plasma glucose results between 100 to 125 mg/dL indicate increased risk for diabetes (prediabetes). Fasting plasma glucose results greater than or equal to 126 mg/dL meet the criteria for diagnosis of diabetes. In the absence of unequivocal hyperglycemia, results should be confirmed by repeat testing. In a patient with classic symptoms of hyperglycemia or hyperglycemic crisis, random plasma glucose results greater than or equal to 200 mg/dL meet the criteria for diagnosis of diabetes. Reference: Standards of Medical Care in Diabetes 2016, [place] [employer]. Diabetes Care. 2016.39(Suppl 1). Performed By: #### 1 6570-4, 26946-3, 56115-6, 57157-1, 23269-3, 41430-9, 69610-6, 28798-2 #### [facility] CLIA [id number] [address] [place] [address] [place] Potassium [Moles/Vol] 3.5 mmol/L Low 3.7-5.1 [facility] Comment on above: Order Comment: Kristofer dickinson Type: BLOOD SPECIMEN Ordering Facility: [facility] Address: [address] [place] [address] Performed By: #### 1 6570-4, 38158-8, 62392-1, 67946-3, 53329-5, 09923-3, 24227-3, 35956-4 #### [facility] CLIA [id number] [address] [place] [address] [place] Protein [Mass/Vol] 7.1 g/dL Normal 6.3-8.0 [facility] Comment on above: Order Comment: Speci men Type: BLOOD SPECIMEN Ordering Facility: [facility] Address: [address] [place] [address] Performed By: #### 1 6570-4, 53003-1, 84633-6, 36146-9, 62151-4, 83213-5, 41577-9, 55520-6 #### [facility] CLIA [id number] [address] [place] [address] [place] Sodium [Moles/Vol] 134 mmol/L Low 136-144 [facility] Comment on above: Order Comment: Speci men Type: BLOOD SPECIMEN Ordering Facility: [facility] Address: [address] [place] [address] Performed By: #### 1 6570-4, 03569-3, 90700-8, 98582-2, 08926-7, 02441-4, 69925-5, 26191-9 #### [facility] CLIA [id number] [address] [place] [address] [place] Urea nitrogen [Mass/Vol] 18 mg/dL Normal 7-21 [facility] Comment on above: Order Comment: Speci men Type: BLOOD SPECIMEN Ordering Facility: [facility] Address: [address] [place] [address] Performed By: #### 1 6570-4, 28157-5, 16860-7, 03065-2, 57661-4, 89727-5, 65717-8, 42219-6 #### [facility] CLIA [id number] [address] [place] [address] [place] HbA1c (Bld)on 07-12-2024 Average glucose Estimated from glycated hemoglobin (Bld) [Mass/Vol] 111 mg/dL Normal [facility] Comment on above: Order Comment: Kristofer dickinson Type: BLOOD SPECIMEN Ordering Facility: [facility] Address: [address] [place] [address] Result Comment: eAG: (Estimated average glucose) is a calculated value from HgbA1c and is franchise sales representative of the average blood glucose level in the last 2-3 month period. Performed By: #### 5 5454-3 #### [facility] CLIA [id number] [address] [place] [address] [place] HbA1c (Bld) [Mass fraction] 5.5 % Normal 4.3-5.6 [facility] Comment on above: Order Comment: Kristofer dickinson Type: BLOOD SPECIMEN Ordering Facility: [facility] Address: [address] [place] [address] Result Comment: Amer [place] Diabetes Association guidelines indicate that patients with HgbA1c in the range 5.7-6.4% are at increased risk for development of diabetes, and intervention by lifestyle modification may be beneficial. HgbA1c greater or equal to 6.5% is considered diagnostic of diabetes. Performed By: #### 5 5454-3 #### [facility] CLIA [id number] [address] [place] [address] [place] Lipid 1996 panelon 5 Cholesterol [Mass/Vol] 208 mg/dL High <200 [facility] Comment on above: Order Comment: Kristofer dickinson Type: BLOOD SPECIMEN Ordering Facility: [facility] Address: [address] [place] [address] Result Comment: <200 mg/dL, Desirable 200-239 mg/dL, Borderline high >239 mg/dL, High Performed By: #### 1 6570-4, 64558-1, 77705-7, 54124-5, 57327-0, 76019-8, 76587-3, 51597-0 #### [facility] CLIA [id number] [address] [place] [address] [place] Cholesterol in HDL [Mass/Vol] 61 mg/dL Normal >39 [facility] Comment on above: Order Comment: Kristofer dickinson Type: BLOOD SPECIMEN Ordering Facility: [facility] Address: [address] [place] [address] Result Comment: 40-5 9 mg/dL, Acceptable >59 mg/dL, High: Negative risk factor for coronary heart disease <40 mg/dL, Low: Positive risk factor for coronary heart disease Performed By: #### 1 6570-4, 96239-7, 48741-2, 59900-9, 01798-2, 98292-2, 48273-8, 02537-3 #### [facility] CLIA [id number] [address] [place] [address] [place] Cholesterol in LDL [Mass/Vol] 84 mg/dL Normal <100 [facility] Comment on above: Order Comment: Kristofer dickinson Type: BLOOD SPECIMEN Ordering Facility: [facility] Address: [address] [place] [address] Result Comment: <100 mg/dL, Optimal 100-129 mg/dL, Near optimal/above optimal 130-159 mg/dL, Borderline high 160-189 mg/dL, High >189 mg/dL, Very high Secondary prevention optimal LDL Cholesterol levels are recommended to be < 70 mg/dL Performed By: #### 1 6570-4, 96117-6, 69364-8, 06731-8, 20331-5, 49215-3, 66762-9, 62109-2 #### [facility] CLIA [id number] [address] [place] [address] [place] Cholesterol in LDL/Cholesterol in HDL [Mass ratio] 1.38 {ratio} Normal <2.54 [facility] Comment on above: Order Comment: Kristofer dickinson Type: BLOOD SPECIMEN Ordering Facility: [facility] Address: [address] [place] [address] Result Comment: Luis valencia: 1. National Cholesterol Education Program ATP III Guideline At-A-Glance Quick Desk Reference: National Heart, Lung, and Blood [place]. National Institutes of Health. 2001: NIH Publication No. 01-3305. 2. An International Atherosclerosis Society position paper: global recommendations for the management of dyslipidemia: executive summary, Atherosclerosis. 2014: 232(2):410-413. Performed By: #### 1 6570-4, 63548-7, 91729-8, 89343-0, 75398-7, 67823-1, 50335-5, 31202-7 #### [facility] CLIA [id number] [address] [place] [address] [place] Cholesterol in VLDL [Mass/Vol] 63 mg/dL High <30 [facility] Comment on above: Order Comment: Jenniferi men Type: BLOOD SPECIMEN Ordering Facility: [facility] Address: [address] [place] [address] Performed By: #### 1 6570-4, 51971-5, 86300-9, 32914-0, 93799-2, 70306-4, 55984-8, 65582-2 #### [facility] CLIA [id number] [address] [place] [address] [place] Cholesterol non HDL [Mass/Vol] 147 mg/dL High <130 [facility] Comment on above: Order Comment: Kristofer dickinson Type: BLOOD SPECIMEN Ordering Facility: [facility] Address: [address] [place] [address] Result Comment: <130 mg/dL, Optimal 130-159 mg/dL, Near optimal/above optimal 160-189 mg/dL, Borderline high 190-219 mg/dL, High >219 mg/dL, Very high Secondary prevention optimal non HDL Cholesterol levels are recommended to be <100 mg/dL Performed By: #### 1 6570-4, 13828-8, 69180-1, 61871-0, 52852-6, 18058-7, 63786-5, 06509-4 #### [facility] CLIA [id number] [address] [place], [place] [address] [place] Cholesterol.total/Cho lesterol in HDL [Mass ratio] 3.41 {ratio} Normal <5.10 [facility] Comment on above: Order Comment: Speci men Type: BLOOD SPECIMEN Ordering Facility: [facility] Address: [address] [place] [address] Performed By: #### 1 6570-4, 44079-0, 20620-2, 65154-4, 64315-4, 63295-2, 19208-6, 35814-8 #### [facility] CLIA [id number] [address] [place] [address] [place] FASTING TIME 12 hrs Normal [facility] Comment on above: Order Comment: Speci men Type: BLOOD SPECIMEN Ordering Facility: [facility] Address: [address] [place] [address] Performed By: #### 1 6570-4, 85535-0, 37987-7, 30198-7, 88786-2, 06682-9, 46916-7, 00124-1 #### [facility] CLIA [id number] [address] [place] [address] [place] Triglyceride [Mass/Vol] 314 mg/dL High <150 [facility] Comment on above: Order Comment: Speci men Type: BLOOD SPECIMEN Ordering Facility: [facility] Address: [address] [place] [address] Result Comment: <150 mg/dL, Normal 150-199 mg/dL, Borderline high 200-499 mg/dL, High >499 mg/dL, Very high Performed By: #### 1 6570-4, 53860-2, 46830-1, 57790-5, 40879-5, 67173-5, 59756-1, 68551-5 #### [facility] CLIA [id number] [address] [place], [place] [address] [place] Colonoscopy Reporton 024 Colonoscopy Report [facility] Medical Records Department [address] [place] [address] Colonoscopy Report MR#: [id number] Acct: [id number] Name: CONCEPCION DONALDSON Rep #: [id number] : 1940 83 From: Gavino Friend DO PCP: Dr. Preston Haney MD Status:REG [facility] Patient Name: Concepcion Donaldson Procedure Date: 05/30/2024 10:53 AM Date of : 1940 Age: 83 Procedure: Colonoscopy Indications: Chronic diarrhea, Hematochezia Providers: Gavnio Jay DO Referring MD: Gavino Jay DO Medicines: Monitored Anesthesia Care Patient Profile: This is an 83 year old female. Refer to note in patient chart for documentation of history and physical. Patient has symptoms of chronic epigastric abdominal pain. Last Colonoscopy: date unknown. Unable to locate last colonoscopy report. Complications: No immediate complications. Procedure: Pre-Anesthesia Assessment: - Prior to the procedure, a History and Physical was performed, and patient medications and allergies were reviewed. The patient is competent. The risks and benefits of the procedure and the sedation options and risks were discussed with the patient. All questions were answered and informed consent was obtained. Patient identification and proposed procedure were verified by the physician in the pre-procedure area. Mental Status Examination: normal. Airway Examination: normal oropharyngeal airway and neck mobility. Respiratory Examination: clear to auscultation. CV Examination: normal. Prophylactic Antibiotics: The patient does not require prophylactic antibiotics. Prior Anticoagulants: The patient has taken no anticoagulant or antiplatelet agents except for NSAID medication. ASA Grade Assessment: II - A patient with mild systemic disease. After reviewing the risks and benefits, the patient was deemed in satisfactory condition to undergo the procedure. The anesthesia plan was to use monitored anesthesia care (MAC). Immediately prior to administration of medications, the patient was re-assessed for adequacy to receive sedatives. The heart rate, respiratory rate, oxygen saturations, blood pressure, adequacy of pulmonary ventilation, and response to care were monitored throughout the procedure. The physical status of the patient was re-assessed after the procedure. After I obtained informed consent, the scope was passed under direct vision. Throughout the procedure, the patient's blood pressure, pulse, and oxygen saturations were monitored continuously. The colonoscope was introduced through the anus and advanced to the terminal ileum. The colonoscopy was performed without difficulty. The patient tolerated the procedure well. The quality of the bowel preparation was adequate. Anatomical landmarks were photographed. Scope In: 10:55:04 AM Scope Withdrawal Time 0 hours 19 minutes 15 seconds Scope Out: 11:21:09 AM Total Procedure Duration Time 0 hours 26 minutes 5 seconds Findings: The perianal and digital rectal examinations were normal. Bleeding external and internal hemorrhoids were found during retroflexion. The hemorrhoids were Grade II (internal hemorrhoids that prolapse but reduce spontaneously). Destruction of internal hemorrhoids using argon plasma at 0.3 liters/minute and 50 arce was successful. Estimated blood loss was minimal. Multiple small and large-mouthed diverticula were found in the recto-sigmoid colon and sigmoid colon. An area of mildly congested mucosa was found in the recto-sigmoid colon, in the sigmoid colon and in the cecum. Biopsies were taken with a cold forceps for histology. Verification of patient identification for the specimen was done. Estimated blood loss was minimal. The terminal ileum appeared normal. Biopsies were taken with a cold forceps for histology. Verification of patient identification for the specimen was done. Estimated blood loss was minimal. Impression: - Bleeding external and internal hemorrhoids. Treated with thermal therapy. - Diverticulosis in the recto-sigmoid colon and in the sigmoid colon. - Congested mucosa in the recto-sigmoid colon, in the sigmoid colon and in the cecum. Biopsied. - The examined portion of the ileum was normal. Biopsied. Recommendation: - Discharge patient to home. - Resume previous diet today. - Repeat colonoscopy is recommended for surveillance. The colonoscopy date will be determined after pathology results from today's exam become available for review. - Continue present medications. Procedure Code(s): --- Professional --- 19321, 59, Colonoscopy, flexible; with biopsy, single or multiple 84678, 51, Destruction of internal hemorrhoid(s) by thermal energy (eg, infrared coagulation, cautery, radiofrequency) CPT copyright 2021 [employer]. All rights reserved. The codes documented in this report are prelimi (more content not included)... Normal [facility] EGD Reporton 05-30-2024 EGD Report [facility] Medical Records Department [address] [place] [address] EGD Report MR#: [id number] Acct: [id number] Name: CONCEPCION DONALDSON Rep #: [id number] : 1940 83 From: Gavino Friend DO PCP: Dr. Preston Haney MD Status[facility] Patient Name: Concepcion Donaldson Procedure Date: 05/30/2024 10:44 AM Date of : 1940 Age: 83 Procedure: Upper GI endoscopy Indications: Peptic ulcer Providers: Gavino Jay DO Referring MD: Gavino Jay DO Medicines: Monitored Anesthesia Care Patient Profile: This is an 83 year old female. Refer to note in patient chart for documentation of history and physical. Patient has symptoms of chronic epigastric abdominal pain. Complications: No immediate complications. Procedure: Pre-Anesthesia Assessment: - Prior to the procedure, a History and Physical was performed, and patient medications and allergies were reviewed. The patient is competent. The risks and benefits of the procedure and the sedation options and risks were discussed with the patient. All questions were answered and informed consent was obtained. Patient identification and proposed procedure were verified by the physician in the pre-procedure area. Mental Status Examination: normal. Airway Examination: normal oropharyngeal airway and neck mobility. Respiratory Examination: clear to auscultation. CV Examination: normal. Prophylactic Antibiotics: The patient does not require prophylactic antibiotics. Prior Anticoagulants: The patient has taken no anticoagulant or antiplatelet agents except for NSAID medication. ASA Grade Assessment: II - A patient with mild systemic disease. After reviewing the risks and benefits, the patient was deemed in satisfactory condition to undergo the procedure. The anesthesia plan was to use monitored anesthesia care (MAC). Immediately prior to administration of medications, the patient was re-assessed for adequacy to receive sedatives. The heart rate, respiratory rate, oxygen saturations, blood pressure, adequacy of pulmonary ventilation, and response to care were monitored throughout the procedure. The physical status of the patient was re-assessed after the procedure. After obtaining informed consent, the endoscope was passed under direct vision. Throughout the procedure, the patient's blood pressure, pulse, and oxygen saturations were monitored continuously. The colonoscope was introduced through the mouth, and advanced to the second part of duodenum. The upper GI endoscopy was accomplished without difficulty. The patient tolerated the procedure well. Scope In: 10:50:03 AM Scope Out: 10:53:28 AM Total Procedure Duration Time 0 hours 3 minutes 25 seconds Findings: The examined esophagus was normal. One non-bleeding linear gastric ulcer with no stigmata of bleeding was found in the gastric body. The lesion was 6 mm in largest dimension. Biopsies were taken with a cold forceps for histology. Verification of patient identification for the specimen was done. Estimated blood loss was minimal. No gross lesions were noted in the first portion of the duodenum. Impression: - Normal esophagus. - Non-bleeding gastric ulcer with no stigmata of bleeding. Biopsied. - No gross lesions in the first portion of the duodenum. Recommendation: - Discharge patient to home. - Resume previous diet. - Use sucralfate tablets 1 gram PO QID for 8 weeks. - Continue present medications. Procedure Code(s): --- Professional --- 63330, Esophagogastroduodenosc opy, flexible, transoral; with biopsy, single or multiple CPT copyright 2021 [employer]. All rights reserved. The codes documented in this report are preliminary and upon yard person review may be revised to meet current compliance requirements. Gavino Jay DO 05/30/2024 11:29:50 AM This report has been signed electronically. Number of Addenda: 0 Note Initiated On: 05/30/2024 10:44 AM 05/30/24 1130 Date Gavino Jay DO Cosigner Signature: Date (if indicated) CC: Dr. Preston Haney MD; Gavino Jay DO Date Dictated: 05/30/24 1044 Date Transcribed: Adjunct Lecturer: SHILA Signed Normal [facility] H Pylori (initial)on 024 H Pylori (initial) --- Patient Age/Sex Location Account Attending Physician CONCEPCION DONALDSON 83/F EN [id number] Gavino Jay DO Specimen: [id number] Received: 05/31/24 Status: AIN Torres Num: [id number] Spec Type: IMMUNO Subm Dr: Gavino Jay DO PHYSICIAN INSTITUTION [place] [address] SPECIMEN INFORMATION: Tissue Source: A - Gastric body biopsy Clinical Info: Rectal hemorrhage Specimen Number: [id number] CPT code: 53469 METHODOLOGY: Deparaffinized sections of prefer/formalin-fixed tissue or PAP/DQ stained slides are incubated with monoclonal/polyclonal antibodies/oligonucleot nj probes. Localization is made via biotin free immunoperoxidase method. Appropriate controls are performed and reacted as expected. Results on target cell population are indicated in the following table: RESULTS: ANTIBODY / CLONE RESULT Block A H Pylori (polyclonal) negative These tests were developed and their performance characteristics determined by [facility]. They may not have been cleared or approved by the U.S. Food and Drug Administration. The FDA has determined that such clearance or approval is not necessary. The above immunohistochemical/delmis Maria D markers are ordered and reviewed by the Pathologist. INTERPRETATION: A. Gastric body, biopsy: Negative for Helicobacter pylori organisms. SJ. 06/01/2024 Signed (signature on file) Dr. Vic Zamora MD 06/01/24 1317 Normal [facility] Comment on above: Performed By: #### L 500.4050, L100.0100 #### [facility] [address] [place], [address] MR/POSTOP.ANE 05-30-2024 MR/POSTOP.[facility] Medical Records Department [address] [place] [address] Anesthesia Postop Eval I 05/30/24 1129 MR#: [id number] Acct: [id number] Name: CONCEPCION DONALDSON Blanco Rep #: [id number] : 1940 83 From: Marin Estrada PCP: Dr. Preston Haney MD Status:REG SDC Y Race: C Location: [place] [address] Anesthesia: Postop Eval I Current Vital Signs Temperature: 97 F Pulse Rate: 77 Blood Pressure: 116/66 Respiratory Rate: 16 Pulse Ox: 97 Oxygen Delivery Method: Room Air Assessment Airway patent: Yes Spontaneous unlabored respirations: Yes Mental status: Asleep nausea: No Vomiting: No Anesthesia Complication: No Fluid Hydration Crystalloid volume administer (ml): 60 Total IV fluid infused: 60 Progress Note Anesthesia document: Postop Eval 1 completed: Yes 05/30/24 1130 Date Marin Fong Signature: Date CC: Signed Normal [facility] MR/[id number] 05-30-2024 MR/POSTOPAN2 [facility] Medical Records Department [address] [place] [address] Anesthesia Postop Eval II 05/30/24 1152 MR#: [id number] Acct: [id number] Name: CONCEPCION DONALDSON Rep #: [id number] : 1940 83 From: Casey Kemp MD PCP: Dr. Preston Haney MD Status:REG SDC Y Race: C Location: [place] [address] Anesthesia Postop Eval I Sum Postop Eval Completion status Anesthesia document: Postop Eval 1 completed: Yes Anesthesia Postop Eval I Summary Anesthesia Postop Eval I Summary: Anesthesia Postop Eval I: Assessment Summary Airway patent Yes 05/30/24 11:30 [email or web address] Spontaneous unlabored Yes 05/30/24 11:30 [email or web address] respirations Mental status Asleep 05/30/24 11:30 [email or web address] nausea No 05/30/24 11:30 [email or web address] Vomiting No 05/30/24 11:30 [email or web address] Anesthesia Postop Eval I: Fluid Summary Crystalloid volume administer 60 05/30/24 11:30 [email or web address] (ml) Colloids volume administered ( ml) Blood Product volume administered (ml) Total IV fluid infused 60 05/30/24 11:30 [email or web address] Anesthesia Postop Eval I: Summary Notes Anesthesia Complication No 05/30/24 11:30 [email or web address] Anesthesia Complication Comment: Post-operative progress note Anesthesia: Postop Eval II Evaluation Mental status: Awake Pain Level: 0 nausea: No Vomiting: No 05/30/24 1152 Date Casey Kemp MD Cosigner Signature: Date CC: Signed Normal [facility] Special Stain Group Ion 11-2 Special Stain Group I ----- Patient Age/Sex Location Account Attending Physician CONCEPCION DONALDSON 83/F EN [id number] Gavino Jay DO Specimen: [id number] Received: 05/30/24 Status: IAN Torres Num: [id number] Spec Type: EGD BIOPSY Lia Dr: Gavino Jay DO HEADER OPERATION: Colonoscopy with biopsy, EGD with biopsy PRE-OP DIAGNOSIS: Rectal hemorrhage TISSUE SUBMITTED: A- Gastric body biopsy, B- Terminal ileum biopsy, C- Cecum biopsy, D- Sigmoid colon biopsy, E- Rectal anal verge biopsy MICROSCOPIC DIAGNOSIS A. Gastric body, biopsy: Mild to moderate chronic gastritis. Focal non-necrotizing granuloma formation. See comment. B. Terminal ileum, biopsy: Fragments of small intestinal mucosa, no pathologic diagnosis. C. Cecum, biopsy: Fragments of colonic mucosa, no pathologic diagnosis. D. Sigmoid colon, biopsy: Fragments of colonic mucosa, no pathologic diagnosis. E. Rectal anal verge, biopsy: Fragments of colonic mucosa with focal hyperplastic and reactive changes. 06/01/2024 COMMENT A. The results of immunohistochemistry for Helicobacter pylori will be reported separately ([id number]). Special stains for acid fast bacilli and fungi are negative for organisms; matched controls are appropriate. Correlation with clinical, endoscopic findings and appropriate follow up are necessary. MICROSCOPIC DESCRIPTION Slides are reviewed. GROSS DESCRIPTION A. Received in fixative is one container labeled with the patient's name and designated Gastric body biopsy. The specimen consists of two irregular fragments of light fleming soft tissue that in aggregate measure 0.6 x 0.3 x 0.1 cm. The specimen is totally submitted in one cassette. B. Received in fixative is one container labeled with the patient's name and designated Terminal ileum biopsy. The specimen consists of two irregular fragments of light fleming soft tissue that in aggregate measure 0.6 x 0.3 x 0.1 cm. The specimen is totally submitted in one cassette. Patient Age/Sex Location Account Attending Physician CNOCEPCION DONALDSON 83/F ADITHYA [id number] Gavino Jay DO C. Received in fixative is one container labeled with the patient's name and designated Cecum biopsy. The specimen consists of two irregular fragments of light fleming soft tissue that in aggregate measure 0.4 x 0.2 x 0.1 cm. The specimen is totally submitted in one cassette. D. Received in fixative is one container labeled with the patient's name and designated Sigmoid colon biopsy. The specimen consists of multiple irregular fragments of light fleming soft tissue that in aggregate measure 1.0 x 0.3 x 0.1 cm. The specimen is totally submitted in one cassette. E. Received in fixative is one container labeled with the patient's name and designated Rectal anal verge biopsy. The specimen consists of two irregular fragments of light fleming soft tissue that in aggregate measure 0.6 x 0.3 x 0.1 cm. The specimen is totally submitted in one cassette. SJ.mr 05/31/2024 TC:3 CPT:98625t8,38883r3 Patient Age/Sex Location Account Attending Physician CONCEPCION DONALDSON 83/F ADITHYA [id number] Gavino Jay DO Signed (signature on file) Dr. Vic Zamora MD 06/01/24 1309 Normal [facility] Comment on above: Performed By: #### L 500.4050, L100.0100 #### [facility] [address] [place], [address] CBC W/Diff, Automatedon 05-11 Absolute Lymph 0.86 X10 3/uL Normal 0.83-4.51 [facility] Comment on above: Performed By: #### L 505.7010, L3890.6300, L501.6710, L3100.5475, L101.9900, L4600.0100, L100.0100, L3890.6100, L500.4050, L3890.6200 #### [facility] [address] [place], [address] Absolute Neut 3.3 X10 3/uL Normal 2.0-7.7 [facility] Comment on above: Performed By: #### L 505.7010, L3890.6300, L501.6710, L3100.5475, L101.9900, L4600.0100, L100.0100, L3890.6100, L500.4050, L3890.6200 #### [facility] [address] [place], [place], [id number] (260) Basophils/100 WBC (Bld) 0.8 % Normal 0-1 [facility] Comment on above: Performed By: #### L 505.7010, L3890.6300, L501.6710, L3100.5475, L101.9900, L4600.0100, L100.0100, L3890.6100, L500.4050, L3890.6200 #### [facility] [address] [place], [address] (587) Eosinophils/100 WBC (Bld) 3.8 % Normal 0-5 [facility] Comment on above: Performed By: #### L 505.7010, L3890.6300, L501.6710, L3100.5475, L101.9900, L4600.0100, L100.0100, L3890.6100, L500.4050, L3890.6200 #### [facility] [address] [place], [place], [id number] Erythrocyte distribution width (RBC) [Ratio] 15.0 % High 11.6-14.6 [facility] Comment on above: Performed By: #### L 505.7010, L3890.6300, L501.6710, L3100.5475, L101.9900, L4600.0100, L100.0100, L3890.6100, L500.4050, L3890.6200 #### [facility] [address] [place], [place] [address] (452) Hematocrit (Bld) [Volume fraction] 44.0 % Normal 37-47 [facility] Comment on above: Performed By: #### L 505.7010, L3890.6300, L501.6710, L3100.5475, L101.9900, L4600.0100, L100.0100, L3890.6100, L500.4050, L3890.6200 #### [facility] [address] [place], [address] Hemoglobin (Bld) [Mass/Vol] 14.4 g/dL Normal 12.0-15.0 [facility] Comment on above: Performed By: #### L 505.7010, L3890.6300, L501.6710, L3100.5475, L101.9900, L4600.0100, L100.0100, L3890.6100, L500.4050, L3890.6200 #### [facility] [address] [place], [address] IG% 1.000 High 0.0-0.9 [facility] Comment on above: Result Comment: IG% - Immature Granulocytes (promyelocytes, myelocytes and metamyelocytes) > 1% indicates that a LEFT SHIFT is Present. Performed By: #### L 505.7010, L3890.6300, L501.6710, L3100.5475, L101.9900, L4600.0100, L100.0100, L3890.6100, L500.4050, L3890.6200 #### [facility] [address] [place], [address] Lymphocytes/100 WBC (Bld) 17.0 % Low 19-41 [facility] Comment on above: Performed By: #### L 505.7010, L3890.6300, L501.6710, L3100.5475, L101.9900, L4600.0100, L100.0100, L3890.6100, L500.4050, L3890.6200 #### [facility] [address] [place], [address] MCH (RBC) [Entitic mass] 29.3 pg Normal 27.0-32.0 [facility] Comment on above: Performed By: #### L 505.7010, L3890.6300, L501.6710, L3100.5475, L101.9900, L4600.0100, L100.0100, L3890.6100, L500.4050, L3890.6200 #### [facility] [address] [place], [address] MCHC (RBC) [Mass/Vol] 32.7 g/dL Normal 32-36 [facility] Comment on above: Performed By: #### L 505.7010, L3890.6300, L501.6710, L3100.5475, L101.9900, L4600.0100, L100.0100, L3890.6100, L500.4050, L3890.6200 #### [facility] [address] [place], [address] MCV (RBC) [Entitic vol] 89.4 fL Normal 81-99 [facility] Comment on above: Performed By: #### L 505.7010, L3890.6300, L501.6710, L3100.5475, L101.9900, L4600.0100, L100.0100, L3890.6100, L500.4050, L3890.6200 #### [facility] [address] [place], [address] Monocytes/100 WBC (Bld) 12.8 % High 0-10 [facility] Comment on above: Performed By: #### L 505.7010, L3890.6300, L501.6710, L3100.5475, L101.9900, L4600.0100, L100.0100, L3890.6100, L500.4050, L3890.6200 #### [facility] [address] [place], [address] Neutrophils/100 WBC (Bld) 64.6 % Normal 47-70 [facility] Comment on above: Performed By: #### L 505.7010, L3890.6300, L501.6710, L3100.5475, L101.9900, L4600.0100, L100.0100, L3890.6100, L500.4050, L3890.6200 #### [facility] [address] [place], [address] Nucleated RBC (Bld) [#/Vol] 0 10*3/uL Normal 0-5 [facility] Comment on above: Performed By: #### L 505.7010, L3890.6300, L501.6710, L3100.5475, L101.9900, L4600.0100, L100.0100, L3890.6100, L500.4050, L3890.6200 #### [facility] [address] [place], [address] (286) Platelet mean volume (Bld) [Entitic vol] 11.4 fL Normal 6.2-12.0 [facility] Comment on above: Performed By: #### L 505.7010, L3890.6300, L501.6710, L3100.5475, L101.9900, L4600.0100, L100.0100, L3890.6100, L500.4050, L3890.6200 #### [facility] [address] [place], [address] (904) Platelets (Bld) [#/Vol] 196 10*3/uL Normal 150-450 [facility] Comment on above: Performed By: #### L 505.7010, L3890.6300, L501.6710, L3100.5475, L101.9900, L4600.0100, L100.0100, L3890.6100, L500.4050, L3890.6200 #### [facility] [address] [place], [address] (086) RBC (Bld) [#/Vol] 4.92 10*6/uL Normal 4.2-5.4 [facility] Comment on above: Performed By: #### L 505.7010, L3890.6300, L501.6710, L3100.5475, L101.9900, L4600.0100, L100.0100, L3890.6100, L500.4050, L3890.6200 #### [facility] [address] [place], [address] RDW SD 48.2 fl High 35.1-43.9 [facility] Comment on above: Performed By: #### L 505.7010, L3890.6300, L501.6710, L3100.5475, L101.9900, L4600.0100, L100.0100, L3890.6100, L500.4050, L3890.6200 #### [facility] [address] [place], [address] WBC (Bld) [#/Vol] 5.1 10*3/uL Normal 4.4-11.0 [facility] Comment on above: Performed By: #### L 505.7010, L3890.6300, L501.6710, L3100.5475, L101.9900, L4600.0100, L100.0100, L3890.6100, L500.4050, L3890.6200 #### [facility] [address] [place], [address] Comprehensive Metabolic Prof [facility] 05-25-2024 Albumin [Mass/Vol] 3.9 g/dL Normal 3.2-5.0 [facility] Comment on above: Performed By: #### L 505.7010, L3890.6300, L501.6710, L3100.5475, L101.9900, L4600.0100, L100.0100, L3890.6100, L500.4050, L3890.6200 #### [facility] [address] [place], [address] Albumin/Globulin [Mass ratio] 1.1 {ratio} Normal 0.9-2.4 [facility] Comment on above: Performed By: #### L 505.7010, L3890.6300, L501.6710, L3100.5475, L101.9900, L4600.0100, L100.0100, L3890.6100, L500.4050, L3890.6200 #### [facility] [address] [place], [address] ALK P 48 U/L Normal 45-117 [facility] Comment on above: Performed By: #### L 505.7010, L3890.6300, L501.6710, L3100.5475, L101.9900, L4600.0100, L100.0100, L3890.6100, L500.4050, L3890.6200 #### [facility] [address] [place], [address] ALT [Catalytic activity/Vol] 25 U/L Normal 13-56 [facility] Comment on above: Performed By: #### L 505.7010, L3890.6300, L501.6710, L3100.5475, L101.9900, L4600.0100, L100.0100, L3890.6100, L500.4050, L3890.6200 #### [facility] [address] [place], [place], [id number] AST [Catalytic activity/Vol] 22 U/L Normal 15-37 [facility] Comment on above: Performed By: #### L 505.7010, L3890.6300, L501.6710, L3100.5475, L101.9900, L4600.0100, L100.0100, L3890.6100, L500.4050, L3890.6200 #### [facility] [address] [place], [address] Bilirubin [Mass/Vol] 0.50 mg/dL Normal 0.20-1.00 [facility] Comment on above: Result Comment: For patients on eltrombopag therapy, use of Dimension [place] TBIL is not recommended. Performed By: #### L 505.7010, L3890.6300, L501.6710, L3100.5475, L101.9900, L4600.0100, L100.0100, L3890.6100, L500.4050, L3890.6200 #### [facility] [address] [place], [place], [phone] (342) BUN/CRE 21.6 RATIO High 10-20 [facility] Comment on above: Performed By: #### L 505.7010, L3890.6300, L501.6710, L3100.5475, L101.9900, L4600.0100, L100.0100, L3890.6100, L500.4050, L3890.6200 #### [facility] [address] [place], [place], [phone] (424) CA,Total 9.9 mg/dL Normal 8.5-10.1 [facility] Comment on above: Performed By: #### L 505.7010, L3890.6300, L501.6710, L3100.5475, L101.9900, L4600.0100, L100.0100, L3890.6100, L500.4050, L3890.6200 #### [facility] [address] [place], [place], [phone] (880) Chloride [Moles/Vol] 93 mmol/L Low 98-107 [facility] Comment on above: Performed By: #### L 505.7010, L3890.6300, L501.6710, L3100.5475, L101.9900, L4600.0100, L100.0100, L3890.6100, L500.4050, L3890.6200 #### [facility] [address] [place], [place], [id number] CO2 [Moles/Vol] 30.0 mmol/L Normal 21.0-32.0 [facility] Comment on above: Performed By: #### L 505.7010, L3890.6300, L501.6710, L3100.5475, L101.9900, L4600.0100, L100.0100, L3890.6100, L500.4050, L3890.6200 #### [facility] [address] [place], [address] Creatinine [Mass/Vol] 0.84 mg/dL Normal 0.55-1.02 [facility] Comment on above: Result Comment: The validity of the calculated GFR GFRAA in patients over 70 years has not been determined. Clinical correlation is essential. Performed By: #### L 505.7010, L3890.6300, L501.6710, L3100.5475, L101.9900, L4600.0100, L100.0100, L3890.6100, L500.4050, L3890.6200 #### [facility] [address] [place], [address] EST GFR - AA 84 mL/min Normal >60 [facility] Comment on above: Result Comment: Afri can Pakistani GFR Calc Performed By: #### L 505.7010, L3890.6300, L501.6710, L3100.5475, L101.9900, L4600.0100, L100.0100, L3890.6100, L500.4050, L3890.6200 #### [facility] [address] [place], [address] GAP 6 Normal 5-15 [facility] Comment on above: Performed By: #### L 505.7010, L3890.6300, L501.6710, L3100.5475, L101.9900, L4600.0100, L100.0100, L3890.6100, L500.4050, L3890.6200 #### [facility] [address] [place], [address] GFR/1.73 sq M.predicted among non-blacks MDRD (S/P/Bld) [Vol rate/Area] 69 mL/min/{1.73_m2} Normal >60 [facility] Comment on above: Result Comment: Non- GFR Calc Performed By: #### L 505.7010, L3890.6300, L501.6710, L3100.5475, L101.9900, L4600.0100, L100.0100, L3890.6100, L500.4050, L3890.6200 #### [facility] [address] [place], [address] Globulin (S) [Mass/Vol] 3.7 g/dL Normal 2.2-4.2 [facility] Comment on above: Performed By: #### L 505.7010, L3890.6300, L501.6710, L3100.5475, L101.9900, L4600.0100, L100.0100, L3890.6100, L500.4050, L3890.6200 #### [facility] [address] [place], [address] Glucose [Mass/Vol] 88 mg/dL Normal 74-106 [facility] Comment on above: Performed By: #### L 505.7010, L3890.6300, L501.6710, L3100.5475, L101.9900, L4600.0100, L100.0100, L3890.6100, L500.4050, L3890.6200 #### [facility] [address] [place], [address] Potassium [Moles/Vol] 3.7 mmol/L Normal 3.5-5.1 [facility] Comment on above: Performed By: #### L 505.7010, L3890.6300, L501.6710, L3100.5475, L101.9900, L4600.0100, L100.0100, L3890.6100, L500.4050, L3890.6200 #### [facility] [address] [place], [address] Sodium [Moles/Vol] 128 mmol/L Low 136-145 [facility] Comment on above: Performed By: #### L 505.7010, L3890.6300, L501.6710, L3100.5475, L101.9900, L4600.0100, L100.0100, L3890.6100, L500.4050, L3890.6200 #### [facility] [address] [place], [address] T PROT 7.6 g/dL Normal 6.4-8.2 [facility] Comment on above: Performed By: #### L 505.7010, L3890.6300, L501.6710, L3100.5475, L101.9900, L4600.0100, L100.0100, L3890.6100, L500.4050, L3890.6200 #### [facility] [address] [place], [address] Urea nitrogen [Mass/Vol] 18 mg/dL Normal 7-18 [facility] Comment on above: Performed By: #### L 505.7010, L3890.6300, L501.6710, L3100.5475, L101.9900, L4600.0100, L100.0100, L3890.6100, L500.4050, L3890.6200 #### [facility] [address] [place], [address] CNOVon 04-24-2024 CNOV Office Visit (INTMWS ) CONCEPCION DONALDSON ([id number]) 1940 F Date Time Provider Department 04/24/24 10:20 AM BYRON SUTTON During your visit today, we recorded the following information about you: Pulse Respiration Blood pressure Weight 68/minute 16/minute 130/70 70.6 kg Height 1.607 m Byron Sutton APRN.RAIL EXPRESS CLERK 04/24/2024 11:10 AM Signed Concepcion Donaldson is a 83 year old female here for a Medicare wellness visit. Arthritis is still pretty bothersome. Questions about methotrexate. Seeing Dr. Madrid for rheumatology. Medicare Health Risk Assessment General Health Okay Exercise: Minutes/Day 0 min Exercise: Days/Week 0 days Alcohol: Daily Use Never Alcohol: Drinks/Day Patient does not drink Alcohol: 6 or more drinks Never Feel off balance Occasionally, uses a cane at times Concerns: Teeth/Dentures no Concerns: Sexual function no Troubled by feelings no Frequency: Eating healthy diet Tries to eat healthy daily ADLs requiring help no Safety precautions in home/vehicle yes Smoke, vape, chews tobacco no Difficulty hearing Yes, deaf in left ear Difficulty seeing no Current Providers Specialists: I have reviewed specialist-related care of the patient in the medical record. 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 Opioid use review Opioid Medications (last 90 days) No data to display Anxiety/Depression screening Recommendation: no further intervention at this time Cognitive screening Mini Cog Score: 5 Cognitive screening reviewed and No further action needed (score 3-5). Functional Observation Was the patient's Timed Up AND Go test unsteady or >= 12 seconds? No Advance Care Planning Surrogate decision maker and/or advance care plan documented Measurements BP 130/70 Pulse 68 Resp 16 Ht 160.7 cm (5' 3.25) Wt 70.6 kg (155 lb 10.3 oz) BMI 27.35 kg/m? Vision Screening: Follows with optometry/ophthalmology Assessment/Plan 1. Medicare annual wellness visit, subsequent - ICD9: V70.0, ICD10: Z00.00 (primary diagnosis) - Counseled on healthy diet and regular exercise - Fall avoidance information provided - Personalized prevention plan provided 2. Primary hypertension - ICD9: 401.9, ICD10: I10 - Controlled - Continue current medications - Recommend home blood pressure monitoring, to bring results to next visit - Encouraged sodium restriction, DASH or Mediterranean diet - Recommend regular aerobic exercise 3. Primary osteoarthritis involving multiple joints - ICD9: 715.98, ICD10: M15.0 Following with rheum. JOSÉ MIGUEL Petty Rosa, APRN.CNP 04/24/2024 10:29 AM Signed Screening schedule The following prevention plan is recommended: Shingrix Vaccine(2 of 3) due on 07/06/2013 RSV Vaccine(1 - 1-dose 75+ series) Never done Influenza Vaccine(1) due on 03/11/2024 Covid-19 Vaccine(2023- season) due on 03/11/2024 WHAT YOU CAN DO TO PREVENT FALLS Many falls can be prevented. By making some changes, you can lower your chances of falling. Four things YOU can do to prevent falls for you* and your caregiver 1. Begin a regular exercise program Exercise is one of the most important ways to lower your chances of falling. It makes you stronger and helps you feel better. Exercises that improve balance and coordination (like Kristopher Chi) are the most helpful. Lack of exercise leads to weakness and increases your chances of falling. Ask your doctor or health care provider about the best type of exercise program for you. 2. Have your health care provider review your medicines Have your doctor or pharmacist review all the medicines you take, even thir-xik-bqnefoi medicines. As you get older, the way medicines work in your body can change. Some medicines, or combinations of medicines, can make you sleepy or dizzy and can cause you to fall. 3. Have your vision checked Have your eyes checked by an eye doctor at least once a year. You may be wearing the wrong glasses or have a condition like glaucoma or cataracts that limits your vision. Poor vision can increase your chances of falling. 4. Make your home safer About half of all falls happen at home. To make your home safer: Remove things you can trip over (like papers, books, clothes, and shoes) from stairs and places where you walk. Remove small throw rugs or use double-sided tape to keep the rugs from slipping. Keep items you use often in cabinets you can reach easily without using a step stool. Have grab bars put in next to your toilet and in the tub or shower. Use non-slip mats in the bathtub and on shower floors. (more content not included)... Normal [facility] Gastroenterology Visit Repor ton 04-20-2024 Gastroenterology Visit Report [facility] [address] [place] [address] OFFICE VISIT Date of Service: 04/20/24 MR#: [id number] Acct: [id number] Name: CONCEPCION DONALDSON Rep #: [id number] : 1940 Provider: BETH yip Age/Sex: 83/F Location: [facility] Status: Signed Intake Vital Signs 09/06/23 09:33 Height 5 ft 3 in Weight: 160 lb BMI 28.3 Intake Visit Reasons: Rectal bleeding Chief Complaint: follow up for c/o rectal bleeding Title Checker Required: No Is patient in pain?: No Allergies Penicillins Allergy (Verified 09/06/23 09:36) hives alendronate sodium (Fosamax) Adverse Reaction (Verified 09/06/23 09:36) Unknown celecoxib (From Celebrex) Adverse Reaction (Verified 09/06/23 09:36) Unknown cetirizine (From Zyrtec) Adverse Reaction (Verified 09/06/23 09:36) Unknown codeine Adverse Reaction (Verified 09/06/23 09:36) Unknown niacin Adverse Reaction (Verified 09/06/23 09:36) Unknown rofecoxib (From Vioxx) Adverse Reaction (Verified 09/06/23 09:36) Unknown Sulfa (Sulfonamide Antibiotics) Adverse Reaction (Verified 09/06/23 09:36) intolerance Post menopausal: Yes Patient : No Have you fallen in the past year?: No Nurse's Note: OV 04.20.24 Pt has a f/u today for rectal bleeding. Pt reports she has spotting blood today. States she has a hx of hemorrhoids. Has a BM daily. Last colonoscopy was in 2017. Takes Miralax, mineral oil, Citrucel, super greens daily and omeprazole daily. PFSH Medical History Multinodular thyroid Benign paroxysmal positional vertigo, bilateral Osteoarthritis DDD (degenerative disc disease) Vision loss Uterovaginal prolapse, incomplete Essential (primary) hypertension Hyperlipidemia Raynaud disease Meniere disease IBS (irritable bowel syndrome) GERD (gastroesophageal reflux disease) Diverticulosis Surgical History History of bunionectomy History of hysterectomy History of cholecystectomy History of carpal tunnel release Family History Mother Hypertension Brother Hypertension Father Heart disease Social History Smoking Status: Never smoker HPI HPI Chief Complaint: follow up for c/o rectal bleeding Details: CONCEPCION DONALDSON, is a 83 F who presents to the office today for FU and for complaints of bleeding per rectum. She reports noted hematochezia 3-4 weeks ago following a BM. She has noticed rectal bleeding while in the shower as well. PCP checked CBC which was normal. She denies abdominal pain, tenesmus, rectal pressure, and cramping associated with bleeding. She denies difficulty chewing and swallowing, heartburn (controlled by omeprazole), bloating. She states that she adjusts her mineral oil intake daily, if she has looser stools, she will back off the oil, and if they're more firm she'll add a little oil that night. She states that she doesn't want a colonoscopy, but knows it is for the best. And asks for an EGD as well to verify continued healing of ulcers. She denies melena, lightheadedness, dizziness associated with blood loss. ROS Const Constitutional: Positive for fatigue, headache(s) and weakness; No fever(s) or weight change Eyes Eyes: No change in vision ENT ENT: Positive for abnormal hearing and headache(s); No difficulty swallowing Resp Respiratory: No cough Cardio Cardiology: Positive for leg pain with exertion; No chest pain at rest or chest pain with exertion Gastro GI: Positive for constipation, diarrhea and excessive flatus; No abdominal pain, belching, bloating, change in bowel habits, change in stool character, coffee ground emesis, cramping, heartburn, difficulty swallowing, feeling full early, incontinent of stools, Vomiting blood/hematemesis, Blood in stool, loose stools, Black,tarry stools, nausea/dyspepsia, pain with swallowing, vomiting or other Genitourinary-Female: No difficulty urinating Musc Musculoskeletal: Positive for abnormal gait, joint pain, back pain, joint swelling, muscle weakness, numbness, stiffness, tingling, Arthritis, sciatica, leg pain at night and leg pain with exertion Skin Skin: Positive for dry skin; No yellowing of the eye or itchy eyes Neuro Neurology: Positive for abnormal gait, abnormal hearing, weakness, headache(s), numbness, tingling and Increased tone in limbs Psych Psychiatric: No anxiety and No depression Endo Endocrine: Positive for fatigue; No weight change Aller/Imm Allergy/Immunologic: No food intolerance or itchy eyes Gerson/Lymp Hematologic/Lymphatic: Positive for easy bruising; No easy bleeding Exam Const General: cooperative, healthy appearing, comfortable (more content not included)... Normal [facility] CBC W/Diff, Automatedon 03-11 Absolute Lymph 1.00 X10 3/uL Normal 0.83-4.51 [facility] Comment on above: Performed By: #### L 500.4050, L100.0100 #### [facility] [address] [place], [address] Absolute Neut 3.2 X10 3/uL Normal 2.0-7.7 [facility] Comment on above: Performed By: #### L 500.4050, L100.0100 #### [facility] [address] [place], [address] Basophils/100 WBC (Bld) 1.0 % Normal 0-1 [facility] Comment on above: Performed By: #### L 500.4050, L100.0100 #### [facility] [address] [place], [address] Eosinophils/100 WBC (Bld) 4.9 % Normal 0-5 [facility] Comment on above: Performed By: #### L 500.4050, L100.0100 #### [facility] [address] [place], [address] Erythrocyte distribution width (RBC) [Ratio] 13.9 % Normal 11.6-14.6 [facility] Comment on above: Performed By: #### L 500.4050, L100.0100 #### [facility] [address] [place], [address] Hematocrit (Bld) [Volume fraction] 42.2 % Normal 37-47 [facility] Comment on above: Performed By: #### L 500.4050, L100.0100 #### [facility] [address] [place], [address] Hemoglobin (Bld) [Mass/Vol] 14.3 g/dL Normal 12.0-15.0 [facility] Comment on above: Performed By: #### L 500.4050, L100.0100 #### [facility] [address] [place], [address] IG% 0.600 Normal 0.0-0.9 [facility] Comment on above: Result Comment: IG% - Immature Granulocytes (promyelocytes, myelocytes and metamyelocytes) > 1% indicates that a LEFT SHIFT is Present. Performed By: #### L 500.4050, L100.0100 #### [facility] [address] [place], [address] Lymphocytes/100 WBC (Bld) 19.6 % Normal 19-41 [facility] Comment on above: Performed By: #### L 500.4050, L100.0100 #### [facility] [address] [place], [address] MCH (RBC) [Entitic mass] 28.9 pg Normal 27.0-32.0 [facility] Comment on above: Performed By: #### L 500.4050, L100.0100 #### [facility] [address] [place], [address] MCHC (RBC) [Mass/Vol] 33.9 g/dL Normal 32-36 [facility] Comment on above: Performed By: #### L 500.4050, L100.0100 #### [facility] [address] [place], [address] MCV (RBC) [Entitic vol] 85.3 fL Normal 81-99 [facility] Comment on above: Performed By: #### L 500.4050, L100.0100 #### [facility] [address] [place], [address] Monocytes/100 WBC (Bld) 11.2 % High 0-10 [facility] Comment on above: Performed By: #### L 500.4050, L100.0100 #### [facility] [address] [place], [address] Neutrophils/100 WBC (Bld) 62.7 % Normal 47-70 [facility] Comment on above: Performed By: #### L 500.4050, L100.0100 #### [facility] [address] [place], [address] Nucleated RBC (Bld) [#/Vol] 0 10*3/uL Normal 0-5 [facility] Comment on above: Performed By: #### L 500.4050, L100.0100 #### [facility] [address] [place], [address] Platelet mean volume (Bld) [Entitic vol] 11.1 fL Normal 6.2-12.0 [facility] Comment on above: Performed By: #### L 500.4050, L100.0100 #### [facility] [address] [place], [address] Platelets (Bld) [#/Vol] 171 10*3/uL Normal 150-450 [facility] Comment on above: Performed By: #### L 500.4050, L100.0100 #### [facility] [address] [place], [address] RBC (Bld) [#/Vol] 4.95 10*6/uL Normal 4.2-5.4 [facility] Comment on above: Performed By: #### L 500.4050, L100.0100 #### [facility] [address] [place], [address] RDW SD 42.6 fl Normal 35.1-43.9 [facility] Comment on above: Performed By: #### L 500.4050, L100.0100 #### [facility] [address] [place], [address] WBC (Bld) [#/Vol] 5.1 10*3/uL Normal 4.4-11.0 [facility] Comment on above: Performed By: #### L 500.4050, L100.0100 #### [facility] [address] [place], [address] Comprehensive Metabolic [facility] 03-27-2024 Albumin [Mass/Vol] 3.6 g/dL Normal 3.2-5.0 [facility] Comment on above: Performed By: #### L 500.4050, L100.0100 #### [facility] [address] [place], [address] Albumin/Globulin [Mass ratio] 1.0 {ratio} Normal 0.9-2.4 [facility] Comment on above: Performed By: #### L 500.4050, L100.0100 #### [facility] [address] [place], [address] ALK P 43 U/L Low 45-117 [facility] Comment on above: Performed By: #### L 500.4050, L100.0100 #### [facility] [address] [place], [address] ALT [Catalytic activity/Vol] 20 U/L Normal 13-56 [facility] Comment on above: Performed By: #### L 500.4050, L100.0100 #### [facility] [address] [place], [address] AST [Catalytic activity/Vol] 23 U/L Normal 15-37 [facility] Comment on above: Performed By: #### L 500.4050, L100.0100 #### [facility] [address] [place], [address] Bilirubin [Mass/Vol] 0.60 mg/dL Normal 0.20-1.00 [facility] Comment on above: Result Comment: For patients on eltrombopag therapy, use of Dimension [place] TBIL is not recommended. Performed By: #### L 500.4050, L100.0100 #### [facility] [address] [place], [address] BUN/CRE 16.3 RATIO Normal 10-20 [facility] Comment on above: Performed By: #### L 500.4050, L100.0100 #### [facility] [address] [place], [address] CA,Total 9.8 mg/dL Normal 8.5-10.1 [facility] Comment on above: Performed By: #### L 500.4050, L100.0100 #### [facility] [address] [place], [address] Chloride [Moles/Vol] 97 mmol/L Low 98-107 [facility] Comment on above: Performed By: #### L 500.4050, L100.0100 #### [facility] [address] [place], [address] CO2 [Moles/Vol] 25.0 mmol/L Normal 21.0-32.0 [facility] Comment on above: Performed By: #### L 500.4050, L100.0100 #### [facility] [address] [place], [address] Creatinine [Mass/Vol] 0.92 mg/dL Normal 0.55-1.02 [facility] Comment on above: Result Comment: The validity of the calculated GFR GFRAA in patients over 70 years has not been determined. Clinical correlation is essential. Performed By: #### L 500.4050, L100.0100 #### [facility] [address] [place], [address] EST GFR - AA 75 mL/min Normal >60 [facility] Comment on above: Result Comment: Afri can Pakistani GFR Calc Performed By: #### L 500.4050, L100.0100 #### [facility] [address] [place], [address] GAP 8 Normal 5-15 [facility] Comment on above: Performed By: #### L 500.4050, L100.0100 #### [facility] [address] [place], [address] GFR/1.73 sq M.predicted among non-blacks MDRD (S/P/Bld) [Vol rate/Area] 62 mL/min/{1.73_m2} Normal >60 [facility] Comment on above: Result Comment: Non- GFR Calc Performed By: #### L 500.4050, L100.0100 #### [facility] [address] [place], [address] Globulin (S) [Mass/Vol] 3.5 g/dL Normal 2.2-4.2 [facility] Comment on above: Performed By: #### L 500.4050, L100.0100 #### [facility] [address] [place], [address] Glucose [Mass/Vol] 108 mg/dL High 74-106 [facility] Comment on above: Result Comment: Fast ing Glucose result from 100 to 125 mg/dL suggests IMPAIRED HOMEOSTASIS per A.D.A. criteria. Performed By: #### L 500.4050, L100.0100 #### [facility] [address] [place], [address] Potassium [Moles/Vol] 4.0 mmol/L Normal 3.5-5.1 [facility] Comment on above: Performed By: #### L 500.4050, L100.0100 #### [facility] [address] [place], [address] Sodium [Moles/Vol] 130 mmol/L Low 136-145 [facility] Comment on above: Performed By: #### L 500.4050, L100.0100 #### [facility] [address] [place], [address] T PROT 7.1 g/dL Normal 6.4-8.2 [facility] Comment on above: Performed By: #### L 500.4050, L100.0100 #### [facility] [address] [place], [address] Urea nitrogen [Mass/Vol] 15 mg/dL Normal 7-18 [facility] Comment on above: Performed By: #### L 500.4050, L100.0100 #### [facility] [address] [place], [address] ANTINUCLEAR ANTIBODIES DIRE Ton 02-21-2024 ANNIE,DIRECT Negative Normal Negative [facility] Comment on above: Result Comment: Perf ormed at: [facility] [address], [place] [id number] [employer] Maintenance Worker: Gregorio Stout PhD, Phone: [phone] Performed By: #### L 500.4050, L100.0100 #### [facility] [address] [place], [place], [id number] CCP IgG Antibodieson 02-17-2 024 CCP IgG Ab. 5 units Normal 0-19 [facility] Comment on above: Result Comment: Nega tive <20 Weak positive 20 - 39 Moderate positive 40 - 59 Strong positive >59 Performed at: [address] [id number] [employer] Worker: Gregorio Stout PhD, Phone: [phone] Performed By: #### L 500.4050, L100.0100 #### [facility] [address] [place], [address] CBC W/Diff, Automatedon Absolute Lymph 0.99 X10 3/uL Normal 0.83-4.51 [facility] Comment on above: Performed By: #### L 505.7010, L3890.6300, L501.6710, L3100.5475, L101.9900, L4600.0100, L100.0100, L3890.6100, L500.4050, L3890.6200 #### [facility] [address] [place], [place], [phone] Absolute Neut 3.8 X10 3/uL Normal 2.0-7.7 [facility] Comment on above: Performed By: #### L 505.7010, L3890.6300, L501.6710, L3100.5475, L101.9900, L4600.0100, L100.0100, L3890.6100, L500.4050, L3890.6200 #### [facility] [address] [place], [place], [id number] Basophils/100 WBC (Bld) 0.9 % Normal 0-1 [facility] Comment on above: Performed By: #### L 505.7010, L3890.6300, L501.6710, L3100.5475, L101.9900, L4600.0100, L100.0100, L3890.6100, L500.4050, L3890.6200 #### [facility] [address] [place], [address] (931) Eosinophils/100 WBC (Bld) 5.2 % High 0-5 [facility] Comment on above: Performed By: #### L 505.7010, L3890.6300, L501.6710, L3100.5475, L101.9900, L4600.0100, L100.0100, L3890.6100, L500.4050, L3890.6200 #### [facility] [address] [place], [address] (215) Erythrocyte distribution width (RBC) [Ratio] 13.5 % Normal 11.6-14.6 [facility] Comment on above: Performed By: #### L 505.7010, L3890.6300, L501.6710, L3100.5475, L101.9900, L4600.0100, L100.0100, L3890.6100, L500.4050, L3890.6200 #### [facility] [address] [place], [address] (182) Hematocrit (Bld) [Volume fraction] 45.5 % Normal 37-47 [facility] Comment on above: Performed By: #### L 505.7010, L3890.6300, L501.6710, L3100.5475, L101.9900, L4600.0100, L100.0100, L3890.6100, L500.4050, L3890.6200 #### [facility] [address] [place], [address] (336) Hemoglobin (Bld) [Mass/Vol] 15.0 g/dL Normal 12.0-15.0 [facility] Comment on above: Performed By: #### L 505.7010, L3890.6300, L501.6710, L3100.5475, L101.9900, L4600.0100, L100.0100, L3890.6100, L500.4050, L3890.6200 #### [facility] [address] [place], [address] IG% 1.000 High 0.0-0.9 [facility] Comment on above: Result Comment: IG% - Immature Granulocytes (promyelocytes, myelocytes and metamyelocytes) > 1% indicates that a LEFT SHIFT is Present. Performed By: #### L 505.7010, L3890.6300, L501.6710, L3100.5475, L101.9900, L4600.0100, L100.0100, L3890.6100, L500.4050, L3890.6200 #### [facility] [address] [place], [address] Lymphocytes/100 WBC (Bld) 17.1 % Low 19-41 [facility] Comment on above: Performed By: #### L 505.7010, L3890.6300, L501.6710, L3100.5475, L101.9900, L4600.0100, L100.0100, L3890.6100, L500.4050, L3890.6200 #### [facility] [address] [place], [address] MCH (RBC) [Entitic mass] 28.4 pg Normal 27.0-32.0 [facility] Comment on above: Performed By: #### L 505.7010, L3890.6300, L501.6710, L3100.5475, L101.9900, L4600.0100, L100.0100, L3890.6100, L500.4050, L3890.6200 #### [facility] [address] [place], [address] MCHC (RBC) [Mass/Vol] 33.0 g/dL Normal 32-36 [facility] Comment on above: Performed By: #### L 505.7010, L3890.6300, L501.6710, L3100.5475, L101.9900, L4600.0100, L100.0100, L3890.6100, L500.4050, L3890.6200 #### [facility] [address] [place], [address] MCV (RBC) [Entitic vol] 86.0 fL Normal 81-99 [facility] Comment on above: Performed By: #### L 505.7010, L3890.6300, L501.6710, L3100.5475, L101.9900, L4600.0100, L100.0100, L3890.6100, L500.4050, L3890.6200 #### [facility] [address] [place], [address] Monocytes/100 WBC (Bld) 10.4 % High 0-10 [facility] Comment on above: Performed By: #### L 505.7010, L3890.6300, L501.6710, L3100.5475, L101.9900, L4600.0100, L100.0100, L3890.6100, L500.4050, L3890.6200 #### [facility] [address] [place], [address] Neutrophils/100 WBC (Bld) 65.4 % Normal 47-70 [facility] Comment on above: Performed By: #### L 505.7010, L3890.6300, L501.6710, L3100.5475, L101.9900, L4600.0100, L100.0100, L3890.6100, L500.4050, L3890.6200 #### [facility] [address] [place], [address] Nucleated RBC (Bld) [#/Vol] 0 10*3/uL Normal 0-5 [facility] Comment on above: Performed By: #### L 505.7010, L3890.6300, L501.6710, L3100.5475, L101.9900, L4600.0100, L100.0100, L3890.6100, L500.4050, L3890.6200 #### [facility] [address] [place], [address] Platelet mean volume (Bld) [Entitic vol] 11.1 fL Normal 6.2-12.0 [facility] Comment on above: Performed By: #### L 505.7010, L3890.6300, L501.6710, L3100.5475, L101.9900, L4600.0100, L100.0100, L3890.6100, L500.4050, L3890.6200 #### [facility] [address] [place], [address] Platelets (Bld) [#/Vol] 197 10*3/uL Normal 150-450 [facility] Comment on above: Performed By: #### L 505.7010, L3890.6300, L501.6710, L3100.5475, L101.9900, L4600.0100, L100.0100, L3890.6100, L500.4050, L3890.6200 #### [facility] [address] [place], [address] RBC (Bld) [#/Vol] 5.29 10*6/uL Normal 4.2-5.4 [facility] Comment on above: Performed By: #### L 505.7010, L3890.6300, L501.6710, L3100.5475, L101.9900, L4600.0100, L100.0100, L3890.6100, L500.4050, L3890.6200 #### [facility] [address] [place], [address] RDW SD 42.0 fl Normal 35.1-43.9 [facility] Comment on above: Performed By: #### L 505.7010, L3890.6300, L501.6710, L3100.5475, L101.9900, L4600.0100, L100.0100, L3890.6100, L500.4050, L3890.6200 #### [facility] [address] [place], [address] WBC (Bld) [#/Vol] 5.8 10*3/uL Normal 4.4-11.0 [facility] Comment on above: Performed By: #### L 505.7010, L3890.6300, L501.6710, L3100.5475, L101.9900, L4600.0100, L100.0100, L3890.6100, L500.4050, L3890.6200 #### [facility] [address] [place], [address] CRPon 02-17-2024 C-REACTIVE PROT < 2.90 Normal 0.0-3.0 [facility] Comment on above: Result Comment: C-Re active Protein (CRP) provides useful information for the diagnosis, therapy and monitoring of inflammatory processes and associated diseases. For the evaluation of Relative Risk for Cardiovascular Disease, a High Sensitivity CRP (HSCRP) should be ordered. Performed By: #### L 505.7010, L3890.6300, L501.6710, L3100.5475, L101.9900, L4600.0100, L100.0100, L3890.6100, L500.4050, L3890.6200 #### [facility] [address] [place], [address] Comprehensive Metabolic Prof ilon 02-17-2024 Albumin [Mass/Vol] 3.9 g/dL Normal 3.2-5.0 [facility] Comment on above: Performed By: #### L 505.7010, L3890.6300, L501.6710, L3100.5475, L101.9900, L4600.0100, L100.0100, L3890.6100, L500.4050, L3890.6200 #### [facility] [address] [place], [place], [id number] Albumin/Globulin [Mass ratio] 1.0 {ratio} Normal 0.9-2.4 [facility] Comment on above: Performed By: #### L 505.7010, L3890.6300, L501.6710, L3100.5475, L101.9900, L4600.0100, L100.0100, L3890.6100, L500.4050, L3890.6200 #### [facility] [address] [place], [place], [id number] ALK P 53 U/L Normal 45-117 [facility] Comment on above: Performed By: #### L 505.7010, L3890.6300, L501.6710, L3100.5475, L101.9900, L4600.0100, L100.0100, L3890.6100, L500.4050, L3890.6200 #### [facility] [address] [place], [place], [id number] ALT [Catalytic activity/Vol] 21 U/L Normal 13-56 [facility] Comment on above: Performed By: #### L 505.7010, L3890.6300, L501.6710, L3100.5475, L101.9900, L4600.0100, L100.0100, L3890.6100, L500.4050, L3890.6200 #### [facility] [address] [place], [place], [id number] AST [Catalytic activity/Vol] 22 U/L Normal 15-37 [facility] Comment on above: Performed By: #### L 505.7010, L3890.6300, L501.6710, L3100.5475, L101.9900, L4600.0100, L100.0100, L3890.6100, L500.4050, L3890.6200 #### [facility] [address] [place], [place], [id number] Bilirubin [Mass/Vol] 0.50 mg/dL Normal 0.20-1.00 [facility] Comment on above: Result Comment: For patients on eltrombopag therapy, use of Dimension [place] TBIL is not recommended. Performed By: #### L 505.7010, L3890.6300, L501.6710, L3100.5475, L101.9900, L4600.0100, L100.0100, L3890.6100, L500.4050, L3890.6200 #### [facility] [address] [place], [place], [id number] BUN/CRE 18.1 RATIO Normal 10-20 [facility] Comment on above: Performed By: #### L 505.7010, L3890.6300, L501.6710, L3100.5475, L101.9900, L4600.0100, L100.0100, L3890.6100, L500.4050, L3890.6200 #### [facility] [address] [place], [place], [id number] CA,Total 9.9 mg/dL Normal 8.5-10.1 [facility] Comment on above: Performed By: #### L 505.7010, L3890.6300, L501.6710, L3100.5475, L101.9900, L4600.0100, L100.0100, L3890.6100, L500.4050, L3890.6200 #### [facility] [address] [place], [address] Chloride [Moles/Vol] 99 mmol/L Normal 98-107 [facility] Comment on above: Performed By: #### L 505.7010, L3890.6300, L501.6710, L3100.5475, L101.9900, L4600.0100, L100.0100, L3890.6100, L500.4050, L3890.6200 #### [facility] [address] [place], [address] CO2 [Moles/Vol] 27.0 mmol/L Normal 21.0-32.0 [facility] Comment on above: Performed By: #### L 505.7010, L3890.6300, L501.6710, L3100.5475, L101.9900, L4600.0100, L100.0100, L3890.6100, L500.4050, L3890.6200 #### [facility] [address] [place], [place], [phone] (790) Creatinine [Mass/Vol] 0.94 mg/dL Normal 0.55-1.02 [facility] Comment on above: Result Comment: The validity of the calculated GFR GFRAA in patients over 70 years has not been determined. Clinical correlation is essential. Performed By: #### L 505.7010, L3890.6300, L501.6710, L3100.5475, L101.9900, L4600.0100, L100.0100, L3890.6100, L500.4050, L3890.6200 #### [facility] [address] [place], [address] EST GFR - AA 73 mL/min Normal >60 [facility] Comment on above: Result Comment: Afri can Pakistani GFR Calc Performed By: #### L 505.7010, L3890.6300, L501.6710, L3100.5475, L101.9900, L4600.0100, L100.0100, L3890.6100, L500.4050, L3890.6200 #### [facility] [address] [place], [place], [phone] (061) GAP 7 Normal 5-15 [facility] Comment on above: Performed By: #### L 505.7010, L3890.6300, L501.6710, L3100.5475, L101.9900, L4600.0100, L100.0100, L3890.6100, L500.4050, L3890.6200 #### [facility] [address] [place], [address] (776) GFR/1.73 sq M.predicted among non-blacks MDRD (S/P/Bld) [Vol rate/Area] 61 mL/min/{1.73_m2} Normal >60 [facility] Comment on above: Result Comment: Non- GFR Calc Performed By: #### L 505.7010, L3890.6300, L501.6710, L3100.5475, L101.9900, L4600.0100, L100.0100, L3890.6100, L500.4050, L3890.6200 #### [facility] [address] [place], [place], [phone] (888) Globulin (S) [Mass/Vol] 4.1 g/dL Normal 2.2-4.2 [facility] Comment on above: Performed By: #### L 505.7010, L3890.6300, L501.6710, L3100.5475, L101.9900, L4600.0100, L100.0100, L3890.6100, L500.4050, L3890.6200 #### [facility] [address] [place], [address] Glucose [Mass/Vol] 87 mg/dL Normal 74-106 [facility] Comment on above: Performed By: #### L 505.7010, L3890.6300, L501.6710, L3100.5475, L101.9900, L4600.0100, L100.0100, L3890.6100, L500.4050, L3890.6200 #### [facility] [address] [place], [address] Potassium [Moles/Vol] 3.8 mmol/L Normal 3.5-5.1 [facility] Comment on above: Performed By: #### L 505.7010, L3890.6300, L501.6710, L3100.5475, L101.9900, L4600.0100, L100.0100, L3890.6100, L500.4050, L3890.6200 #### [facility] [address] [place], [address] Sodium [Moles/Vol] 133 mmol/L Low 136-145 [facility] Comment on above: Performed By: #### L 505.7010, L3890.6300, L501.6710, L3100.5475, L101.9900, L4600.0100, L100.0100, L3890.6100, L500.4050, L3890.6200 #### [facility] [address] [place], [address] T PROT 8.0 g/dL Normal 6.4-8.2 [facility] Comment on above: Performed By: #### L 505.7010, L3890.6300, L501.6710, L3100.5475, L101.9900, L4600.0100, L100.0100, L3890.6100, L500.4050, L3890.6200 #### [facility] [address] [place], [address] Urea nitrogen [Mass/Vol] 17 mg/dL Normal 7-18 [facility] Comment on above: Performed By: #### L 505.7010, L3890.6300, L501.6710, L3100.5475, L101.9900, L4600.0100, L100.0100, L3890.6100, L500.4050, L3890.6200 #### [facility] [address] [place], [place], [phone] Erythrocyte Sed Rateon 02-16 SED RATE 9 mm/hr Normal 0-30 [facility] Comment on above: Performed By: #### L 505.7010, L3890.6300, L501.6710, L3100.5475, L101.9900, L4600.0100, L100.0100, L3890.6100, L500.4050, L3890.6200 #### [facility] [address] [place], [address] Hepatitis B Surface Antibody on 02-17-2024 HEP B Surf Ab Non-Reactive Normal [facility] Comment on above: Result Comment: Non Reactive: Inconsistent with immunity less than <10 mIU/mL Reactive: Consistent with immunity greater than or equal to 10 mIU/mL Performed By: #### L 505.7010, L3890.6300, L501.6710, L3100.5475, L101.9900, L4600.0100, L100.0100, L3890.6100, L500.4050, L3890.6200 #### [facility] [address] [place], [place], [id number] Hepatitis B Surface Antigeno n 02-17-2024 HEP B Surf Ag Non-Reactive Normal Nonreactive [facility] Comment on above: Performed By: #### L 505.7010, L3890.6300, L501.6710, L3100.5475, L101.9900, L4600.0100, L100.0100, L3890.6100, L500.4050, L3890.6200 #### [facility] [address] [place], [address] Hepatitis C Antibodyon 02-16 Hepatitis C AB Non-Reactive Normal Nonreactive [facility] Comment on above: Result Comment: Non Reactive: < 0.8 Equivocal: >/= 0.8 to < 1.0 Reactive: >/= 1.0 The CDC requires that a reactive/equivocal HCV antibody result be sent out for confirmation. HCV Quant by PCR testing. Performed By: #### L 505.7010, L3890.6300, L501.6710, L3100.5475, L101.9900, L4600.0100, L100.0100, L3890.6100, L500.4050, L3890.6200 #### [facility] [address] [place], [place], [id number] Pelvis 1 or 2 Viewson 2023 Pelvis 1 or 2 Views [facility] Imaging Services [address] [place], [place] [address] Pelvis 1 or 2 Views MR#: [id number] Acct: [id number] Name: CONCEPCION DONALDSON Rep #: [id number] : 1940 F 83 From: Lynne melara MD PCP: Dr. Preston Haney MD Status: [facility] CLI Study: Pelvis 1 or 2 Views Date of Exam: 02/17/24 Exam# [id number] Ordering Dr: [place] [id number] HISTORY: INFLAMMATORY POLYARTHROPATHY. TECHNIQUE: XR Pelvis 1 or 2 Views. COMPARISON: 12/21/2021. FINDINGS: OSSEOUS STRUCTURES: No acute displaced fracture identified. Note that overlapping bowel shadows may obscure osseous detail. Mineralization unremarkable. JOINT SPACES: No dislocation. Mild degenerative changes of the hips. SOFT TISSUES: Chronic calcified structure in the left lower quadrant. Chronic ossification inferior to the left initial tuberosity. RAD/Pelvis 1 or 2 Views IMPRESSION: No acute displaced fracture or dislocation identified. Electronically Signed: Lynne Saini MD at 15:55 EDT , CC: Dr. Preston Haney MD; Dr. Jessica Madrid MD Adjunct Lecturer: Signed Normal [facility] Rheumatoid Factoron 02-17-20 RHEUMATOID FAC < 10.0 Normal <15 [facility] Comment on above: Performed By: #### L 505.7010, L3890.6300, L501.6710, L3100.5475, L101.9900, L4600.0100, L100.0100, L3890.6100, L500.4050, L3890.6200 #### [facility] [address] [place], [address] Gastroenterology Visit Repor ton 01-23-2024 Gastroenterology Visit Report [facility] [address] [place] [address] OFFICE VISIT Date of Service: 01/23/24 MR#: [id number] Acct: [id number] Name: CONCEPCION DONALDSON Rep #: [id number] : 1940 Provider: Gavino Jay DO Age/Sex: 83/F Location: [facility] Status: Signed Intake Vital Signs 09/06/23 09:33 Height 5 ft 3 in Weight: 160 lb BMI 28.3 Intake Visit Reasons: FOLLOW UP Chief Complaint: follow up Allergies Penicillins Allergy (Verified 09/06/23 09:36) hives alendronate sodium (Fosamax) Adverse Reaction (Verified 09/06/23 09:36) Unknown celecoxib (From Celebrex) Adverse Reaction (Verified 09/06/23 09:36) Unknown cetirizine (From Zyrtec) Adverse Reaction (Verified 09/06/23 09:36) Unknown codeine Adverse Reaction (Verified 09/06/23 09:36) Unknown niacin Adverse Reaction (Verified 09/06/23 09:36) Unknown rofecoxib (From Vioxx) Adverse Reaction (Verified 09/06/23 09:36) Unknown Sulfa (Sulfonamide Antibiotics) Adverse Reaction (Verified 09/06/23 09:36) intolerance Medications ???Medication ???Instructions ???Recorded ???Confirmed ???Type aspirin 81 mg tablet,delayed 81 mg PO DAILY 12/26/19 01/23/24 History release (Adult Aspirin Regimen) calcitriol 0.25 mcg capsule 0.25 mcg PO DAILY 12/26/19 01/23/24 History lovastatin 40 mg tablet 40 mg PO QPM 12/26/19 01/23/24 History metoprolol succinate 50 mg 50 mg PO DAILY 12/26/19 01/23/24 History tablet,extended release 24 hr multivitamin 1 tab PO DAILY 12/26/19 01/23/24 History nortriptyline 25 mg capsule 25 mg PO DAILY 12/26/19 01/23/24 History (Pamelor) omega-3 fatty acids 1,000 mg 1,000 mg PO DAILY 12/26/19 01/23/24 History capsule (Fish Oil Concentrate) omeprazole 20 mg capsule,delayed 20 mg PO BID 12/26/19 01/23/24 History release polyethylene glycol 3350 17 17 g PO DAILY 12/26/19 01/23/24 History gram/dose oral powder (Miralax) clotrimazole-betamethas one 1 1 applic topical BID 12/23/20 01/23/24 History %-0.05 % topical cream lisinopril 20 1 tab PO BID #180 tabs 02/06/21 01/23/24 Rx mg-hydrochlorothiazide 12.5 mg tablet methylcellulose (laxative) 500 mg 500 mg PO DAILY 09/06/23 01/23/24 History tablet (Citrucel) mineral oil 15 ml PO DAILY 09/06/23 01/23/24 History Have you fallen in the past year?: No PFSH Medical History Multinodular thyroid Benign paroxysmal positional vertigo, bilateral Osteoarthritis DDD (degenerative disc disease) Vision loss Uterovaginal prolapse, incomplete Essential (primary) hypertension Hyperlipidemia Raynaud disease Meniere disease IBS (irritable bowel syndrome) GERD (gastroesophageal reflux disease) Diverticulosis Surgical History History of bunionectomy History of hysterectomy History of cholecystectomy History of carpal tunnel release Family History Mother Hypertension Brother Hypertension Father Heart disease Social History Smoking Status: Never smoker HPI HPI Chief Complaint: follow up Details: CONCEPCION DONALDSON, is a 83 F who presents to the office today for follow up. *BGI established 6.3.22 constipation of days with no/hard stools alternating with frequent loose stools and smearing of feces on undergarments for the last 15 years. MiraLAX/Citrucel for several years; recently added alphonso seed which were helpful. ? SITZ study Day Three two ring R colon, five ring L colon, 11 ring RS colon, 18 total. Day five one ring R colon, two ring L colon, three ring RS colon, 6 total. OV 8.26.22 prefer weekly tap water enema for management of constipation. OV 11.18.22 recommend oil regimen to lubricate GI tract. Possible Linzess in the future OV 2.9.23 doing very well with regimen of MiraLAX, citrucel and alphonso. OV 9.8.23 continues mineral oil, miralax and alphonso seeds and finds this helpful but does have some days of soft urgent stools and small infrequent BM. This pattern is improved in normalcy from previous. OV 7.15.24 pt denies GI symptoms of concern at this time. Pt reports that her current regimen of mineral oil, mirlax, alphonso seeds, and citrucel is working well for her; does endorse fecal incontinence but states that she does not want to be constipated. ROS Const Constitutional: Positive for fatigue, headache(s) and weakness; No fever(s) or weight change ENT ENT: Positive for headache(s); No difficulty swallowing Gastro GI: Positive for excessive flatus; No abdominal pain, belching, bloating, change in bowel habits, change in stool character, coffee ground emesis, constipation, cramping, diarrhea, (more content not included)... Normal [facility] CNOVon 01-20-2024 CNOV Office Visit (INTMWS ) CONCEPCION DONALDSON ([id number]) 1940 F Date Time Provider Department 01/20/24 10:00 AM BYRON SUTTON INTMWS During your visit today, we recorded the following information about you: Pulse Respiration Blood pressure Weight 67/minute 16/minute 144/70 72.1 kg Byron Sutton APRN.[employer] CLERK 01/20/2024 10:49 AM Signed SUBJECTIVE Concepcion Donaldson is a 83 year old female here today for a check up on her medical problems. Chief Complaint Patient presents with: F/U 6 months HPI Concepcion Donaldson is a 83 year old female. She is an established patient of Preston Haney MD. Here today for a routine 6 month follow up. Last seen 07/20 with Preston Haney MD. History of HTN, HLD, IFG, constipation, vitamin d def. And IBS. Had labs done 01/12. Doing well. Working on diet to control sugars. IBS is stable, constipation managed. Following with GI. No issues with chest pain, chest tightness or shortness of breath. She does have a problematic varicose vein on the right leg causing her some pain. Prior vein stripping. Behavioral Health Screening PHQ-2 Score: 0 (Lower risk for depression) ABDIAS-2 Score: 0 (Lower risk for anxiety) Recommendation: no further intervention at this time Her medications were reviewed today and her list is now up to date. Medications Current Outpatient Medications Medication Sig calcitriol (ROCALTROL) 0.25 mcg capsule Take 1 capsule by mouth once daily. omeprazole (PRILOSEC) 20 mg capsule Take 1 capsule by mouth two times a day. 1/2 HR BEFORE MEAL. nortriptyline (PAMELOR) 25 mg capsule Take 1 capsule by mouth daily at bedtime. lovastatin 40 mg tablet Take 1 tablet by mouth daily at bedtime. lisinopril-hydroCHLOROt hiazide (ZESTORETIC) 20-12.5 mg per tablet Take 1 tablet by mouth two times a day. estradiol (ESTRACE) 0.01 % (0.1 mg/gram) vaginal cream Use 1 g vaginally daily at bedtime for 14 days, THEN 1 g two times a week. metoprolol succinate ER (TOPROL XL) 50 mg 24 hr tablet Take 1 tablet by mouth every morning AND 0.5 tablets every afternoon. calcitriol (ROCALTROL) 0.25 mcg capsule Take 1 capsule by mouth once daily. nortriptyline (PAMELOR) 25 mg capsule Take 1 capsule by mouth daily at bedtime. omeprazole (PRILOSEC) 20 mg capsule Take 1 capsule by mouth two times a day. 1/2 HR BEFORE MEAL. MINERAL OIL ORAL Take by mouth as needed (constipation). cholecalciferol (VITAMIN D3) 50 mcg (2,000 unit) tablet Take 2,000 Units by mouth once daily. polyethylene glycol 3350 (MIRALAX, GLYCOLAX) 17 gram/dose powder Take 17 g by mouth once daily. aspirin, enteric coated (ASPIRIN, ENTERIC COATED) 81 mg EC tablet Take 1 tablet by mouth once daily. Methylcellulose, Laxative, 500 mg tab TAKE TWO TABLETS TWICE DAILY omega-3 fatty acids/vitamin e(FISH OIL 1,000 MG CAP) Take one(1) tablet daily. THERAPEUTIC MULTIVITAMIN TAB Take one(1) tablet daily. No current facility-administered medications for this visit. 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 Home BP: 138/86 Office BP: 146/74 Mixed Hyperlipidemia - 01/12/2006 Primary Osteoarthritis Involving Multiple Joints - 01/12/2006 Social History Tobacco Use Smoking status: Never Smokeless tobacco: Never Vaping Use Vaping Use: Never used Substance Use Topics Alcohol use: No Drug use: No Review of Systems Constitutional: Negative. Respiratory: Negative. Cardiovascular: Negative. Musculoskeletal: Positive for arthralgias. OBJECTIVE BP 144/70 Pulse 67 Resp 16 Wt 159 lb (72.1kg) SpO2 98% Physical Exam Vitals and nursing note reviewed. Constitutional: General: She is awake. She is not in acute distress. Appearance: Normal appearance. She is well-developed and well-groomed. She is not ill-appearing, toxic-appearing or diaphoretic. HENT: Head: Normocephalic. Righ (more content not included)... Normal [facility] 25(OH)D3 [facility] 25-hydroxyvitamin D3 [Mass/Vol] 76.7 ng/mL Normal 31.0-80.0 [facility] Comment on above: Order Comment: Speci men Type: BLOOD SPECIMEN Ordering Facility: [facility] Address: [address] [place] [address] Result Comment: Clas sification of 25 [place] Vitamin D status: Deficiency/Insufficiency: < or = 30 ng/ml. Sufficiency/Optimal Levels: 31-80 ng/mL Toxicity: > 100 ng/mL. Test performed by chemiluminescent immunoassay. Performed By: #### 1 6570-4, 15295-8, 71845-1, 23113-7, 55795-7, 34119-0, 67222-5, 64260-1 #### [facility] CLIA [id number] [address] [place] [address] [place] CBC panel Auto (Bld)on 01-12 Erythrocyte distribution width (RBC) [Ratio] 13.3 % Normal 11.5-15.0 [facility] Comment on above: Order Comment: Speci men Type: BLOOD SPECIMEN Ordering Facility: [facility] Address: [address] [place] [address] Performed By: #### 1 6570-4, 10363-0, 88015-5, 55240-2, 19492-4, 74417-8, 91673-1, 04886-0 #### [facility] CLIA [id number] [address] [place] [address] [place] Hematocrit (Bld) [Volume fraction] 44.3 % Normal 36.0-46.0 [facility] Comment on above: Order Comment: Speci men Type: BLOOD SPECIMEN Ordering Facility: [facility] Address: [address] [place] [address] Performed By: #### 1 6570-4, 66462-5, 59269-1, 67790-3, 57018-5, 71948-8, 57180-1, 14253-5 #### [facility] CLIA [id number] [address] [place] [address] [place] Hemoglobin (Bld) [Mass/Vol] 15.2 g/dL Normal 11.5-15.5 [facility] Comment on above: Order Comment: Speci men Type: BLOOD SPECIMEN Ordering Facility: [facility] Address: [address] [place] [address] Performed By: #### 1 6570-4, 86001-5, 05606-3, 69130-3, 23206-7, 16064-4, 53723-6, 05510-0 #### [facility] CLIA [id number] [address] [place] [address] [place] MCH (RBC) [Entitic mass] 29.0 pg Normal 26.0-34.0 [facility] Comment on above: Order Comment: Speci men Type: BLOOD SPECIMEN Ordering Facility: [facility] Address: [address] [place] [address] Performed By: #### 1 6570-4, 44506-1, 30164-3, 24759-2, 77340-7, 84311-1, 16151-3, 14100-7 #### [facility] CLIA [id number] [address] [place] [address] [place] MCHC (RBC) [Mass/Vol] 34.3 g/dL Normal 30.5-36.0 [facility] Comment on above: Order Comment: Speci men Type: BLOOD SPECIMEN Ordering Facility: [facility] Address: [address] [place] [address] Performed By: #### 1 6570-4, 15424-0, 85093-2, 26895-5, 65872-0, 81903-8, 27542-0, 17939-7 #### [facility] CLIA [id number] [address] [place] [address] [place] MCV (RBC) [Entitic vol] 84.5 fL Normal 80.0-100.0 [facility] Comment on above: Order Comment: Speci men Type: BLOOD SPECIMEN Ordering Facility: [facility] Address: [address] [place] [address] Performed By: #### 1 6570-4, 47172-5, 57103-8, 77036-2, 61259-9, 72024-6, 07449-9, 95897-0 #### [facility] CLIA [id number] [address] [place] [address] [place] Nucleated RBC (Bld) [#/Vol] 10*3/uL Normal <0.01 [facility] Comment on above: Order Comment: Speci men Type: BLOOD SPECIMEN Ordering Facility: [facility] Address: [address] [place] [address] Performed By: #### 1 6570-4, 74831-5, 01246-5, 95290-9, 17570-0, 99106-7, 50113-1, 04955-7 #### [facility] CLIA [id number] [address] [place] [address] [place] Platelet mean volume (Bld) [Entitic vol] 10.8 fL Normal 9.0-12.7 [facility] Comment on above: Order Comment: Speci men Type: BLOOD SPECIMEN Ordering Facility: [facility] Address: [address] [place] [address] Performed By: #### 1 6570-4, 17515-1, 78957-8, 95486-1, 12318-5, 71451-5, 20739-0, 27108-9 #### [facility] CLIA [id number] [address] [place] [address] [place] Platelets (Bld) [#/Vol] 172 10*3/uL Normal 150-400 [facility] Comment on above: Order Comment: Speci men Type: BLOOD SPECIMEN Ordering Facility: [facility] Address: [address] [place] [address] Performed By: #### 1 6570-4, 70604-2, 33654-6, 33984-6, 20368-8, 94056-7, 07207-6, 61548-4 #### [facility] CLIA [id number] [address] [place] [address] [place] RBC (Bld) [#/Vol] 5.24 10*6/uL High 3.90-5.[address] [facility] Comment on above: Order Comment: Speci men Type: BLOOD SPECIMEN Ordering Facility: [facility] Address: [address] [place] [address] Performed By: #### 1 6570-4, 70608-6, 25372-0, 10529-4, 36268-5, 88300-4, 56038-7, 27209-9 #### [facility] CLIA [id number] [address] [place] [address] [place] WBC (Bld) [#/Vol] 4.72 10*3/uL Normal 3.70-11.[address] [facility] Comment on above: Order Comment: Speci men Type: BLOOD SPECIMEN Ordering Facility: [facility] Address: [address] [place] [address] Performed By: #### 1 6570-4, 49933-3, 96102-1, 12258-8, 12355-2, 96027-5, 13797-3, 93417-3 #### [facility] CLIA [id number] [address] [place] [address] [place] [facility] [place] Comprehensive metabolic 2000 panelon 01-13-2024 Albumin [Mass/Vol] 4.5 g/dL Normal 3.9-4.9 [facility] Comment on above: Order Comment: Speci men Type: BLOOD SPECIMEN Ordering Facility: [facility] Address: [address] [place] [address] Performed By: #### 1 6570-4, 99967-3, 54314-7, 92572-6, 10425-4, 98569-5, 38337-1, 11381-3 #### [facility] CLIA [id number] [address] [place] [address] [place] ALP [Catalytic activity/Vol] 50 U/L Normal 34-123 [facility] Comment on above: Order Comment: Speci men Type: BLOOD SPECIMEN Ordering Facility: [facility] Address: [address] [place] [address] Performed By: #### 1 6570-4, 90735-3, 34326-6, 24671-0, 58093-2, 49476-8, 15100-3, 22043-2 #### [facility] CLIA [id number] [address] [place] [address] [place] ALT [Catalytic activity/Vol] 11 U/L Normal 7-38 [facility] Comment on above: Order Comment: Speci men Type: BLOOD SPECIMEN Ordering Facility: [facility] Address: [address] [place] [address] Performed By: #### 1 6570-4, 68590-9, 96113-5, 16713-9, 59745-0, 98477-3, 51449-5, 07768-5 #### [facility] CLIA [id number] [address] [place] [address] [place] Anion gap [Moles/Vol] 11 mmol/L Normal 8-15 [facility] Comment on above: Order Comment: Speci men Type: BLOOD SPECIMEN Ordering Facility: [facility] Address: [address] [place] [address] Performed By: #### 1 6570-4, 87665-3, 09087-9, 19871-5, 04071-2, 99613-6, 86902-5, 53331-8 #### [facility] CLIA [id number] [address] [place] [address] [place] AST [Catalytic activity/Vol] 20 U/L Normal 13-35 [facility] Comment on above: Order Comment: Speci men Type: BLOOD SPECIMEN Ordering Facility: [facility] Address: [address] [place] [address] Performed By: #### 1 6570-4, 98551-8, 17570-5, 67597-1, 58173-7, 24984-3, 22536-3, 09752-6 #### [facility] CLIA [id number] [address] [place] [address] [place] Bilirubin [Mass/Vol] 0.5 mg/dL Normal 0.2-1.3 [facility] Comment on above: Order Comment: Speci men Type: BLOOD SPECIMEN Ordering Facility: [facility] Address: [address] [place] [address] Performed By: #### 1 6570-4, 97352-5, 58142-9, 62845-6, 44707-5, 86199-9, 12930-9, 55514-4 #### [facility] CLIA [id number] [address] [place], [place] [address] [place] Calcium [Mass/Vol] 10.0 mg/dL Normal 8.5-10.2 [facility] Comment on above: Order Comment: Speci men Type: BLOOD SPECIMEN Ordering Facility: [facility] Address: [address] [place] [address] Performed By: #### 1 6570-4, 58419-2, 62466-5, 84619-1, 61498-6, 36441-4, 20193-4, 52915-5 #### [facility] CLIA [id number] [address] [place] [address] [place] Chloride [Moles/Vol] 97 mmol/L Low 98-107 [facility] Comment on above: Order Comment: Speci men Type: BLOOD SPECIMEN Ordering Facility: [facility] Address: [address] [place] [address] Performed By: #### 1 6570-4, 69333-7, 04490-1, 90993-6, 12890-1, 25333-2, 76423-0, 70704-8 #### [facility] CLIA [id number] [address] [place] [address] [place] CO2 [Moles/Vol] 25 mmol/L Normal 22-30 [facility] Comment on above: Order Comment: Speci men Type: BLOOD SPECIMEN Ordering Facility: [facility] Address: [address] [place] [address] Performed By: #### 1 6570-4, 32582-5, 97904-6, 41378-0, 46007-0, 24895-2, 64048-6, 28525-4 #### [facility] CLIA [id number] [address] [place], [place] [address] [place] Creatinine [Mass/Vol] 0.80 mg/dL Normal 0.58-0.96 [facility] Comment on above: Order Comment: Speci men Type: BLOOD SPECIMEN Ordering Facility: [facility] Address: [address] [place] [address] Performed By: #### 1 6570-4, 41935-9, 09905-9, 98117-5, 41318-9, 45660-0, 81825-7, 51292-0 #### [facility] CLIA [id number] [address] [place] [address] [place] Creatinine and Glomerular filtration rate.predicted panel (S/P/Bld) 74 mL/min/1.73m??? Normal >=60 [facility] Comment on above: Order Comment: Kristofer dikcinson Type: BLOOD SPECIMEN Ordering Facility: [facility] Address: [address] [place] [address] Result Comment: Sravanthi mated Glomerular Filtration Rate (eGFR) is calculated using the 2020 CKD-EPI creatinine equation. This equation utilizes serum creatinine, sex, and age as parameters. The creatinine assay has traceable calibration to isotope dilution-mass spectrometry. Refer to KDIGO guidelines for clinical interpretation. In patients with unstable renal function, e.g. those with acute kidney injury, the eGFR may not accurately reflect actual GFR. Performed By: #### 1 6570-4, 77296-6, 57129-3, 84383-0, 64635-7, 76629-5, 67927-0, 78154-1 #### [facility] CLIA [id number] [address] [place] [address] [place] Glucose [Mass/Vol] 89 mg/dL Normal 74-99 [facility] Comment on above: Order Comment: Kristofer dickinson Type: BLOOD SPECIMEN Ordering Facility: [facility] Address: [address] [place] [address] Result Comment: The [place] [employer] (ADA) provides guidance for cutoff values for fasting glucose and random glucose. The ADA defines fasting as no caloric intake for at least 8 hours. Fasting plasma glucose results between 100 to 125 mg/dL indicate increased risk for diabetes (prediabetes). Fasting plasma glucose results greater than or equal to 126 mg/dL meet the criteria for diagnosis of diabetes. In the absence of unequivocal hyperglycemia, results should be confirmed by repeat testing. In a patient with classic symptoms of hyperglycemia or hyperglycemic crisis, random plasma glucose results greater than or equal to 200 mg/dL meet the criteria for diagnosis of diabetes. Reference: Standards of Medical Care in Diabetes 2016, [place] [employer]. Diabetes Care. 2016.39(Suppl 1). Performed By: #### 1 6570-4, 91576-1, 27574-0, 16135-7, 28760-6, 03619-2, 06007-7, 96308-8 #### [facility] CLIA [id number] [address] [place] [address] [place] Potassium [Moles/Vol] 3.7 mmol/L Normal 3.7-5.1 [facility] Comment on above: Order Comment: Speci men Type: BLOOD SPECIMEN Ordering Facility: [facility] Address: [address] [place] [address] Performed By: #### 1 6570-4, 47895-3, 56657-9, 50479-2, 75679-2, 10271-1, 57142-0, 83903-7 #### [facility] CLIA [id number] [address] [place] [address] [place] Protein [Mass/Vol] 7.0 g/dL Normal 6.3-8.0 [facility] Comment on above: Order Comment: Speci men Type: BLOOD SPECIMEN Ordering Facility: [facility] Address: [address] [place] [address] Performed By: #### 1 6570-4, 66392-5, 52850-2, 40224-5, 69525-6, 90997-3, 90001-5, 55084-5 #### [facility] CLIA [id number] [address] [place] [address] [place] Sodium [Moles/Vol] 133 mmol/L Low 136-144 [facility] Comment on above: Order Comment: Speci men Type: BLOOD SPECIMEN Ordering Facility: [facility] Address: [address] [place] [address] Performed By: #### 1 6570-4, 92614-7, 03989-9, 61812-9, 72543-9, 73579-1, 05533-3, 41903-4 #### [facility] CLIA [id number] [address] [place] [address] [place] Urea nitrogen [Mass/Vol] 15 mg/dL Normal 7-21 [facility] Comment on above: Order Comment: Speci men Type: BLOOD SPECIMEN Ordering Facility: [facility] Address: [address] [place] [address] Performed By: #### 1 6570-4, 03396-5, 54735-6, 92946-2, 30473-0, 41856-4, 69053-5, 09941-2 #### [facility] CLIA [id number] [address] [place] [address] [place] HbA1c (Bld)on 01-13-2024 Average glucose Estimated from glycated hemoglobin (Bld) [Mass/Vol] 111 mg/dL Normal [facility] Comment on above: Order Comment: Kristofer dickinson Type: BLOOD SPECIMEN Ordering Facility: [facility] Address: [address] [place] [address] Result Comment: eAG: (Estimated average glucose) is a calculated value from HgbA1c and is franchise sales representative of the average blood glucose level in the last 2-3 month period. Performed By: #### 1 6570-4, 21598-4, 82391-1, 18546-4, 23220-2, 26440-2, 93260-7, 75616-1 #### [facility] CLIA [id number] [address] [place] [address] [place] HbA1c (Bld) [Mass fraction] 5.5 % Normal 4.3-5.6 [facility] Comment on above: Order Comment: Kristofer dickinson Type: BLOOD SPECIMEN Ordering Facility: [facility] Address: [address] [place] [address] Result Comment: Amer ican Diabetes Association guidelines indicate that patients with HgbA1c in the range 5.7-6.4% are at increased risk for development of diabetes, and intervention by lifestyle modification may be beneficial. HgbA1c greater or equal to 6.5% is considered diagnostic of diabetes. Performed By: #### 1 6570-4, 87652-9, 61036-0, 43185-7, 45523-5, 59763-0, 51077-5, 89683-1 #### [facility] CLIA [id number] [address] [place] [address] [place] Lipid 1996 panelon 4 Cholesterol [Mass/Vol] 166 mg/dL Normal <200 [facility] Comment on above: Order Comment: Kristofer dickinson Type: BLOOD SPECIMEN Ordering Facility: [facility] Address: [address] [place] [address] Result Comment: <200 mg/dL, Desirable 200-239 mg/dL, Borderline high >239 mg/dL, High Performed By: #### 1 6570-4, 41256-8, 27210-3, 52213-6, 06483-7, 72636-3, 57531-8, 40325-7 #### [facility] CLIA [id number] [address] [place] [address] [place] Cholesterol in HDL [Mass/Vol] 56 mg/dL Normal >39 [facility] Comment on above: Order Comment: Kristofer dickinson Type: BLOOD SPECIMEN Ordering Facility: [facility] Address: [address] [place] [address] Result Comment: 40-5 9 mg/dL, Acceptable >59 mg/dL, High: Negative risk factor for coronary heart disease <40 mg/dL, Low: Positive risk factor for coronary heart disease Performed By: #### 1 6570-4, 22089-6, 72355-6, 40170-1, 06204-2, 25870-2, 67438-0, 59762-8 #### [facility] CLIA [id number] [address] [id number] [address] [place] Cholesterol in LDL [Mass/Vol] 70 mg/dL Normal <100 [facility] Comment on above: Order Comment: Kristofer dickinson Type: BLOOD SPECIMEN Ordering Facility: [facility] Address: [address] [place] [address] Result Comment: <100 mg/dL, Optimal 100-129 mg/dL, Near optimal/above optimal 130-159 mg/dL, Borderline high 160-189 mg/dL, High >189 mg/dL, Very high Secondary prevention optimal LDL Cholesterol levels are recommended to be < 70 mg/dL Performed By: #### 1 6570-4, 57488-0, 99652-8, 67217-5, 42877-3, 67865-7, 76121-9, 01165-4 #### [facility] CLIA [id number] [address] [place] [address] [place] Cholesterol in LDL/Cholesterol in HDL [Mass ratio] 1.25 {ratio} Normal <2.54 [facility] Comment on above: Order Comment: Kristofer dickinson Type: BLOOD SPECIMEN Ordering Facility: [facility] Address: [address] [place] [address] Result Comment: Refe abbice: 1. National Cholesterol Education Program ATP III Guideline At-A-Glance Quick Desk Reference: National Heart, Lung, and Blood [place]. National Institutes of Health. 2001: NIH Publication No. 01-3305. 2. An International Atherosclerosis Society position paper: global recommendations for the management of dyslipidemia: executive summary, Atherosclerosis. 2014: 232(2):410-413. Performed By: #### 1 6570-4, 19202-3, 97102-2, 14906-4, 86477-7, 47896-5, 76648-9, 43345-4 #### [facility] CLIA [id number] [address] [place] [address] [place] Cholesterol in VLDL [Mass/Vol] 40 mg/dL High <30 [facility] Comment on above: Order Comment: Kristofer dickinson Type: BLOOD SPECIMEN Ordering Facility: [facility] Address: [address] [place] [address] Performed By: #### 1 6570-4, 21980-2, 61948-1, 24166-3, 25172-6, 62978-2, 43749-4, 20113-4 #### [facility] CLIA [id number] [address] [place], [place] [id number] [place] Cholesterol non HDL [Mass/Vol] 110 mg/dL Normal <130 [facility] Comment on above: Order Comment: Speci men Type: BLOOD SPECIMEN Ordering Facility: [facility] Address: [address] [place] [address] Result Comment: <130 mg/dL, Optimal 130-159 mg/dL, Near optimal/above optimal 160-189 mg/dL, Borderline high 190-219 mg/dL, High >219 mg/dL, Very high Secondary prevention optimal non HDL Cholesterol levels are recommended to be <100 mg/dL Performed By: #### 1 6570-4, 14264-4, 36983-5, 32909-3, 93978-1, 68247-8, 30400-4, 61072-3 #### [facility] CLIA [id number] [address] [place] [address] [place] Cholesterol.total/Cho lesterol in HDL [Mass ratio] 2.96 {ratio} Normal <5.10 [facility] Comment on above: Order Comment: Speci men Type: BLOOD SPECIMEN Ordering Facility: [facility] Address: [address] [place] [address] Performed By: #### 1 6570-4, 23457-2, 80700-4, 58484-8, 53720-0, 72596-1, 99687-6, 87058-5 #### [facility] CLIA [id number] [address] [place] [address] [place] FASTING TIME 12 hrs Normal [facility] Comment on above: Order Comment: Speci men Type: BLOOD SPECIMEN Ordering Facility: [facility] Address: [address] [place] [address] Performed By: #### 1 6570-4, 20917-9, 95735-2, 10648-4, 24514-0, 84641-4, 89504-9, 92082-4 #### [facility] CLIA [id number] [address] [place] [address] [place] Triglyceride [Mass/Vol] 200 mg/dL High <150 [facility] Comment on above: Order Comment: Speci men Type: BLOOD SPECIMEN Ordering Facility: [facility] Address: [address] [place] [address] [place] [address] Result Comment: <150 mg/dL, Normal 150-199 mg/dL, Borderline high 200-499 mg/dL, High >499 mg/dL, Very high Performed By: #### 1 6570-4, 31854-7, 43733-8, 89910-8, 76393-1, 32121-1, 64881-5, 65887-3 #### [facility] CLIA [id number] [address] [place] [address] OF [facility] CNPNon 12-20-2023 CNPN Telephone ([id number]) CONCEPCION DONALDSON ([id number]) 1940 F Date Time Provider Department 12/20/23 PRESTON HANEY FAMPWS During your visit today, we recorded the following information about you: Miranda Munoz LPN 12/20/2023 1:40 PM Signed Pt is calling to report her arthritis is getting worse and she would like to see miter sawyer Dr. Madrid. Pt is asking for an order to be faxed to Dr. Madrid's office along with: Demographics, last 2 OV notes, last 6 months of labs and imaging, copy front and back of insurance card. Pt reports she is mostly going for the arthritis in her hands. Fax to: [phone]. BROOKS Bañuelos Liza D, MD 12/23/2023 12:35 AM Signed Filed order as requested Print records as requested below Dana Vargas LPN 12/23/2023 8:24 AM Signed Order and records faxed to Dr. Madrid to number provided below. Allergies As of Date: 12/20/2023 Noted Allergy Reaction FOSAMAX (ALENDRONATE SODIUM) 07/13/2005 5 - Intolerance CODEINE 07/13/2005 5 - Intolerance NIACIN 07/13/2005 5 - Intolerance SULFA (SULFONAMIDE ANTIBIOTICS) 07/13/2005 5 - Intolerance Comments: Stomach pain VIOXX (ROFECOXIB) 07/13/2005 5 - Intolerance ZYRTEC (CETIRIZINE HCL) 07/13/2005 5 - Intolerance CELEBREX (CELECOXIB) 07/13/2005 2 - Rash GRASS POLLEN 01/10/2008 Comments: scratchy throat NITROFURANTOIN MONOHYD/M-CRYST 05/04/2021 5 - Intolerance Comments: Stomach pain PENICILLINS 07/13/2005 4 - Hives Date Reviewed: 07/20/2023 Reviewed by: Ratna Newberry LPN - Fully Assessed Reason for Visit: Orders [681] 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 - omeprazole (PRILOSEC) 20 mg capsule Take 1 capsule by mouth two times a day. 1/2 HR BEFORE MEAL. - nortriptyline (PAMELOR) 25 mg capsule Take 1 capsule by mouth daily at bedtime. - lovastatin 40 mg tablet Take 1 tablet by mouth daily at bedtime. - lisinopril-hydroCHLOROt hiazide (ZESTORETIC) 20-12.5 mg per tablet Take 1 tablet by mouth two times a day. - estradiol (ESTRACE) 0.01 % (0.1 mg/gram) vaginal cream Use 1 g vaginally daily at bedtime for 14 days, THEN 1 g two times a week. - metoprolol succinate ER (TOPROL XL) 50 mg 24 hr tablet Take 1 tablet by mouth every morning AND 0.5 tablets every afternoon. - calcitriol (ROCALTROL) 0.25 mcg capsule Take 1 capsule by mouth once daily. - nortriptyline (PAMELOR) 25 mg capsule Take 1 capsule by mouth daily at bedtime. - omeprazole (PRILOSEC) 20 mg capsule Take 1 capsule by mouth two times a day. 1/2 HR BEFORE MEAL. - MINERAL OIL ORAL Take by mouth as needed (constipation). - cholecalciferol (VITAMIN D3) 50 mcg (2,000 unit) tablet Take 2,000 Units by mouth once daily. - polyethylene glycol 3350 (MIRALAX, GLYCOLAX) 17 gram/dose powder Take 17 g by mouth once daily. - aspirin, enteric coated (ASPIRIN, ENTERIC COATED) 81 mg EC tablet Take 1 tablet by mouth once daily. - Methylcellulose, Laxative, 500 mg tab TAKE TWO TABLETS TWICE DAILY - omega-3 fatty acids/vitamin e(FISH OIL 1,000 MG CAP) Take one(1) tablet daily. - THERAPEUTIC MULTIVITAMIN TAB Take one(1) tablet daily. 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9] 07/22/2010 Rectal incontinence [R15.9] 03/23/2011 Eczema [L30.9] 07/01/2011 Other disorder of coccyx [M53.3] 05/05/2012 DDD (degenerative disc disease), cervical [M50.*09/10/2013 Medicare annual wellness visit, subsequent [Z00*05/29/2014 02/07/2023 Prediabetes [R73.03] 11/16/2015 Multinodular thyroid [E04.2] 11/16/2015 Deafness in left ear [H91.92] 07/06/2016 Persistent disorder of initiating or maintainin*04/26/2017 Spinal stenosis of lumbar region without neurog*03/04/2019 Encounter Status:Closed by DANA VARGAS on 12/23/23 Normal [facility] CESAR DIAGNOSTIC LEFTon 2022 [facility] CESAR SCREENING W TOMOon 07-09 [facility] CNPNon 06-11-2022 CNPN Telephone (ANNETTE) CONCEPCION DONALDSON ([id number]) 1940 F Date Time Provider Department 06/11/22 BLANCA MUNOZ During your visit today, we recorded the following information about you: Blanca Munoz MD 06/11/2022 10:46 AM Signed Keflex prescribed for treatment of UTI. Please inform pt. MD Jasson Millan Ma 06/11/2022 1:20 PM Signed Patient informed. Jasson Polk Ma Allergies As of Date: 06/11/2022 Noted Allergy Reaction FOSAMAX (ALENDRONATE SODIUM) 07/13/2005 5 - Intolerance CODEINE 07/13/2005 5 - Intolerance NIACIN 07/13/2005 5 - Intolerance SULFA (SULFONAMIDE ANTIBIOTICS) 07/13/2005 5 - Intolerance Comments: Stomach pain VIOXX (ROFECOXIB) 07/13/2005 5 - Intolerance ZYRTEC (CETIRIZINE HCL) 07/13/2005 5 - Intolerance CELEBREX (CELECOXIB) 07/13/2005 2 - Rash GRASS POLLEN 01/10/2008 Comments: scratchy throat NITROFURANTOIN MONOHYD/M-CRYST 05/04/2021 5 - Intolerance Comments: Stomach pain PENICILLINS 07/13/2005 4 - Hives Date Reviewed: 06/08/2022 Reviewed by: Dana Mcdowell LPN - Fully Assessed Reason for Visit: Results [95] Order(s):cephALEXin (KEFLEX) 500 mg capsuleTake 1 capsule by mouth twice daily for 7 days.Disp: 14 capsuleRfl: 0 Prescriptions as of 06/11/2022 - cephALEXin (KEFLEX) 500 mg capsule Take 1 capsule by mouth twice daily for 7 days. - trimethoprim (PROLOPRIM) 100 mg tablet Take 1 tablet by mouth once daily. - clobetasol (TEMOVATE) 0.05 % ointment Apply to vulva twice daily for four weeks. Then, apply daily for four weeks. Then, apply three times per week for four weeks. Then apply twice weekly. - estradiol (ESTRACE) 0.01 % (0.1 mg/gram) vaginal cream Use 1 g vaginally daily at bedtime for 14 days, THEN 1 g two times a week. - calcitriol (ROCALTROL) 0.25 mcg capsule Take 1 capsule by mouth once daily. - lisinopril-hydroCHLOROt hiazide (PRINZIDE,ZESTORETIC) 20-12.5 mg per tablet Take 1 tablet by mouth twice daily. ( adjusted dose and sent RX) - lovastatin 40 mg tablet Take 1 tablet by mouth daily at bedtime. - metoprolol succinate ER (TOPROL XL) 50 mg 24 hr tablet Take 1 tablet by mouth every morning AND 0.5 tablets every afternoon. - nortriptyline (PAMELOR) 25 mg capsule Take 1 capsule by mouth daily at bedtime. - omeprazole (PRILOSEC) 20 mg capsule Take 1 capsule by mouth twice daily. 1/2 HR BEFORE MEAL. - cholecalciferol (VITAMIN D3) 50 mcg (2,000 unit) tablet Take 2,000 Units by mouth once daily. - polyethylene glycol 3350 (MIRALAX, GLYCOLAX) 17 gram/dose powder Take 17 g by mouth once daily. - aspirin, enteric coated (ASPIRIN, ENTERIC COATED) 81 mg EC tablet Take 1 tablet by mouth once daily. - Methylcellulose, Laxative, 500 mg tab TAKE TWO TABLETS TWICE DAILY - omega-3 fatty acids/vitamin e(FISH OIL 1,000 MG CAP) Take one(1) tablet daily. - THERAPEUTIC MULTIVITAMIN TAB Take one(1) tablet daily. 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9] 07/22/2010 Rectal incontinence [R15.9] 03/23/2011 Eczema [L30.9] 07/01/2011 Other disorder of coccyx [M53.3] 05/05/2012 DDD (degenerative disc disease), cervical [M50.*09/10/2013 Medicare annual wellness visit, subsequent [Z00*05/29/2014 Prediabetes [R73.03] 11/16/2015 Multinodular thyroid [E04.2] 11/16/2015 Deafness in left ear [H91.92] 07/06/2016 Persistent disorder of initiating or maintainin*04/26/2017 Spinal stenosis of lumbar region without neurog*03/04/2019 Prescriptions ordered this encounter Disp Refills Start End CEPHALEXIN 500 MG CAPSULE 14 c* 0 06/11/2022 06/18/2022 Route: ORAL Sig: Take 1 capsule by mouth twice daily for 7 days. Encounter Status:Closed by BLANCA MUNOZ on 06/11/22 [facility] 02-16-2022 RICH Telephone (GYNGRN) CONCEPCION DONALDSON ([id number]) 1940 F Date Time Provider Department 02/16/22 LAURA SHEPARD During your visit today, we recorded the following information about you: Laura Shepard APRN.HEYDI 02/16/2022 1:09 PM Signed Advise patient urine culture confirms a UTI. Keflex prescription sent to pharmacy. Laura Shepard APRN.HEYDI Da Silva 02/16/2022 1:23 PM Signed Called pt and results given. Per pt she is unsure if she will take antibiotics. She might wait until seeing urologist next week. Tiffany Da Silva RN Allergies As of Date: 02/16/2022 Noted Allergy Reaction FOSAMAX (ALENDRONATE SODIUM) 07/13/2005 5 - Intolerance CODEINE 07/13/2005 5 - Intolerance NIACIN 07/13/2005 5 - Intolerance SULFA (SULFONAMIDE ANTIBIOTICS) 07/13/2005 5 - Intolerance Comments: Stomach pain VIOXX (ROFECOXIB) 07/13/2005 5 - Intolerance ZYRTEC (CETIRIZINE HCL) 07/13/2005 5 - Intolerance CELEBREX (CELECOXIB) 07/13/2005 2 - Rash GRASS POLLEN 01/10/2008 Comments: scratchy throat NITROFURANTOIN MONOHYD/M-CRYST 05/04/2021 5 - Intolerance Comments: Stomach pain PENICILLINS 07/13/2005 4 - Hives Date Reviewed: 12/23/2021 Reviewed by: Blanca Munoz MD - Fully Assessed Reason for Visit: Results [95] Primary Visit Diagnosis:Acute cystitis without hematuria [N30.00] Order(s):cephALEXin (KEFLEX) 500 mg capsuleTake 1 capsule by mouth twice daily for 5 days.Disp: 10 capsuleRfl: 0 Prescriptions as of 02/16/2022 - cephALEXin (KEFLEX) 500 mg capsule Take 1 capsule by mouth twice daily for 5 days. - trimethoprim (PROLOPRIM) 100 mg tablet Take 1 tablet by mouth once daily. - clobetasol (TEMOVATE) 0.05 % ointment Apply to vulva twice daily for four weeks. Then, apply daily for four weeks. Then, apply three times per week for four weeks. Then apply twice weekly. - estradiol (ESTRACE) 0.01 % (0.1 mg/gram) vaginal cream Use 1 g vaginally daily at bedtime for 14 days, THEN 1 g two times a week. - calcitriol (ROCALTROL) 0.25 mcg capsule Take 1 capsule by mouth once daily. - lisinopril-hydroCHLOROt hiazide (PRINZIDE,ZESTORETIC) 20-12.5 mg per tablet Take 1 tablet by mouth twice daily. ( adjusted dose and sent RX) - lovastatin 40 mg tablet Take 1 tablet by mouth daily at bedtime. - metoprolol succinate ER (TOPROL XL) 50 mg 24 hr tablet Take 1 tablet by mouth every morning AND 0.5 tablets every afternoon. - nortriptyline (PAMELOR) 25 mg capsule Take 1 capsule by mouth daily at bedtime. - omeprazole (PRILOSEC) 20 mg capsule Take 1 capsule by mouth twice daily. 1/2 HR BEFORE MEAL. - cholecalciferol (VITAMIN D-3) 50 mcg (2,000 unit) tablet Take 2,000 Units by mouth once daily. - polyethylene glycol 3350 (MIRALAX, GLYCOLAX) 17 gram/dose powder Take 17 g by mouth once daily. - aspirin, enteric coated (ASPIRIN, ENTERIC COATED) 81 mg EC tablet Take 1 tablet by mouth once daily. - Methylcellulose, Laxative, (CITRUCEL) 500 mg ORAL Tab TAKE TWO TABLETS TWICE DAILY - omega-3 fatty acids/vitamin e(FISH OIL 1,000 MG CAP) Take one(1) tablet daily. - THERAPEUTIC MULTIVITAMIN TAB Take one(1) tablet daily. 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9] 07/22/2010 Rectal incontinence [R15.9] 03/23/2011 Eczema [L30.9] 07/01/2011 Other disorder of coccyx [M53.3] 05/05/2012 DDD (degenerative disc disease), cervical [M50.*09/10/2013 Medicare annual wellness visit, subsequent [Z00*05/29/2014 Prediabetes [R73.03] 11/16/2015 Multinodular thyroid [E04.2] 11/16/2015 Deafness in left ear [H91.92] 07/06/2016 Persistent disorder of initiating or maintainin*04/26/2017 Spinal stenosis of lumbar region without neurog*03/04/2019 Prescriptions ordered this encounter Disp Refills Start End CEPHALEXIN 500 MG CAPSULE 10 c* 0 02/16/2022 02/21/2022 Route: ORAL Sig: Take 1 capsule by mouth twice daily for 5 days. Encounter Status:Closed by LAURA SHEPARD on 02/16/22 [facility] 01-20-2022 RICH Telephone (UROLAG) CONCEPCION DONALDSON ([id number]) 1940 F Date Time Provider Department 01/20/22 LAURA SHEPARD During your visit today, we recorded the following information about you: Farhad Arredondo MA 01/20/2022 8:51 AM Signed Pt called in asking for recent CT scan results. And also pt says she is having UTI symptoms came back. Asking for urine analysis. Urine culture pended APOORVA Rodriguez APRN.[facility] 01/21/2022 10:16 AM Signed Urine culture order signed. Advised patient CT scan does not indicate a kidney stone. There are some findings (moderate hydronephrosis and renal cyst) that have not changed since CT 2017 which I will review with Dr. Munoz and let her know if we need to do anything additional. Laura Shepard APRN.HEYDI Gilliland Cma 01/21/2022 10:19 AM Signed Left message for patient to return call Lucille Gilliland Cma 01/21/2022 11:03 AM Signed Patient notified of CT results and urine culture order. Lucille Munoz MD 01/22/2022 8:12 AM Signed Agree with below. No evidence of stone and otherwise stable findings (moderate hydro and cyst). If frequency of UTIs does not improve with antibiotic suppression, may recommend follow up with urology to determine if additional recommendations can be made for anatomic findings which may be contributing. Please inform pt. MD Laura Millan APRN.[facility] 01/22/2022 10:16 AM Signed Spoke with patient regarding Dr. Munoz's message. Urine culture pending. Questions answered. Laura Shepard APRN.[employer] Allergies As of Date: 01/20/2022 Noted Allergy Reaction FOSAMAX (ALENDRONATE SODIUM) 07/13/2005 5 - Intolerance CODEINE 07/13/2005 5 - Intolerance NIACIN 07/13/2005 5 - Intolerance SULFA (SULFONAMIDE ANTIBIOTICS) 07/13/2005 5 - Intolerance Comments: Stomach pain VIOXX (ROFECOXIB) 07/13/2005 5 - Intolerance ZYRTEC (CETIRIZINE HCL) 07/13/2005 5 - Intolerance CELEBREX (CELECOXIB) 07/13/2005 2 - Rash GRASS POLLEN 01/10/2008 Comments: scratchy throat NITROFURANTOIN MONOHYD/M-CRYST 05/04/2021 5 - Intolerance Comments: Stomach pain PENICILLINS 07/13/2005 4 - Hives Date Reviewed: 12/23/2021 Reviewed by: Blanca Munoz MD - Fully Assessed Reason for Visit: Results [95] Primary Visit Diagnosis:UTI symptoms [R39.9] Order(s):URINE CULTURE [SQURCUL] Order #: [id number] FUTURE Prescriptions as of 01/22/2022 - trimethoprim (PROLOPRIM) 100 mg tablet Take 1 tablet by mouth once daily. - clobetasol (TEMOVATE) 0.05 % ointment Apply to vulva twice daily for four weeks. Then, apply daily for four weeks. Then, apply three times per week for four weeks. Then apply twice weekly. - estradiol (ESTRACE) 0.01 % (0.1 mg/gram) vaginal cream Use 1 g vaginally daily at bedtime for 14 days, THEN 1 g two times a week. - calcitriol (ROCALTROL) 0.25 mcg capsule Take 1 capsule by mouth once daily. - lisinopril-hydroCHLOROt hiazide (PRINZIDE,ZESTORETIC) 20-12.5 mg per tablet Take 1 tablet by mouth twice daily. ( adjusted dose and sent RX) - lovastatin 40 mg tablet Take 1 tablet by mouth daily at bedtime. - metoprolol succinate ER (TOPROL XL) 50 mg 24 hr tablet Take 1 tablet by mouth every morning AND 0.5 tablets every afternoon. - nortriptyline (PAMELOR) 25 mg capsule Take 1 capsule by mouth daily at bedtime. - omeprazole (PRILOSEC) 20 mg capsule Take 1 capsule by mouth twice daily. 1/2 HR BEFORE MEAL. - cholecalciferol (VITAMIN D-3) 50 mcg (2,000 unit) tablet Take 2,000 Units by mouth once daily. - polyethylene glycol 3350 (MIRALAX, GLYCOLAX) 17 gram/dose powder Take 17 g by mouth once daily. - aspirin, enteric coated (ASPIRIN, ENTERIC COATED) 81 mg EC tablet Take 1 tablet by mouth once daily. - Methylcellulose, Laxative, (CITRUCEL) 500 mg ORAL Tab TAKE TWO TABLETS TWICE DAILY - omega-3 fatty acids/vitamin e(FISH OIL 1,000 MG CAP) Take one(1) tablet daily. - THERAPEUTIC MULTIVITAMIN TAB Take one(1) tablet daily. 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] 08/03/2006 BENIGN PARXYSMAL VERTIGO [H81.10] 08/03/2006 Uterovaginal Prolapse, Incomplete [N81.2] 06/08/2007 09/29/2009 Postmenopausal atrophic vaginitis [N95.2] 06/08/2007 07/06/2016 Chronic GERD [K21.9] 07/25/2007 Urgency of urination [R39.15] 01/10/2008 07/06/2016 Urge Incontinence [N39.41] 01/10/2008 09/29/2009 Female Stress Incontinence [N39.3] 01/10/2008 09/29/2009 GASTRITIS ANTRAL( W/O Hemorrhage) [K29.60] 05/27/2008 07/06/2016 Incontinence of feces [787.6] 09/29/2009 03/23/2011 Rectocele [N81.6] 09/29/2009 Vision loss [H54.7] 04/21/2010 07/06/2016 IBS (irritable (more content not included)... Normal [facility] CT FLANK WO IVCONon 01-09-20 [facility] Matthew 12-18-2021 RICH Telephone (ANNETTE) CONCEPCION DONALDSON ([id number]) 1940 F Date Time Provider Department 12/18/21 LAURA SHEPARD During your visit today, we recorded the following information about you: Laura Shepard APRN.CNP 12/18/2021 10:00 AM Signed Spoke with patient regarding urine culture results. Plan treatment with Keflex then suppression with Trimethoprim (due to allergies). States she had an allergic reaction to PCN in the 70s. Advise patient we will try Keflex and if she has any concerns for a reaction she is to stop it and call. She understands. Laura Shepard APRN.CNP Allergies As of Date: 12/18/2021 Noted Allergy Reaction FOSAMAX (ALENDRONATE SODIUM) 07/13/2005 5 - Intolerance CODEINE 07/13/2005 5 - Intolerance NIACIN 07/13/2005 5 - Intolerance SULFA (SULFONAMIDE ANTIBIOTICS) 07/13/2005 5 - Intolerance Comments: Stomach pain VIOXX (ROFECOXIB) 07/13/2005 5 - Intolerance ZYRTEC (CETIRIZINE HCL) 07/13/2005 5 - Intolerance CELEBREX (CELECOXIB) 07/13/2005 2 - Rash GRASS POLLEN 01/10/2008 Comments: scratchy throat NITROFURANTOIN MONOHYD/M-CRYST 05/04/2021 5 - Intolerance Comments: Stomach pain PENICILLINS 07/13/2005 4 - Hives Date Reviewed: 12/15/2021 Reviewed by: Lucille Gilliland Slitting Machine Feeder - Fully Assessed Reason for Visit: Results [95] Primary Visit Diagnosis:Recurrent UTI [N39.0] Order(s):cephALEXin (KEFLEX) 500 mg capsuleTake 1 capsule by mouth twice daily for 7 days.Disp: 14 capsuleRfl: 0 trimethoprim (PROLOPRIM) 100 mg tabletTake 1 tablet by mouth once daily.Disp: 30 tabletRfl: 2 Prescriptions as of 12/18/2021 - cephALEXin (KEFLEX) 500 mg capsule Take 1 capsule by mouth twice daily for 7 days. - trimethoprim (PROLOPRIM) 100 mg tablet Take 1 tablet by mouth once daily. - clobetasol (TEMOVATE) 0.05 % ointment Apply to vulva twice daily for four weeks. Then, apply daily for four weeks. Then, apply three times per week for four weeks. Then apply twice weekly. - estradiol (ESTRACE) 0.01 % (0.1 mg/gram) vaginal cream Use 1 g vaginally daily at bedtime for 14 days, THEN 1 g two times a week. - calcitriol (ROCALTROL) 0.25 mcg capsule Take 1 capsule by mouth once daily. - lisinopril-hydroCHLOROt hiazide (PRINZIDE,ZESTORETIC) 20-12.5 mg per tablet Take 1 tablet by mouth twice daily. ( adjusted dose and sent RX) - lovastatin 40 mg tablet Take 1 tablet by mouth daily at bedtime. - metoprolol succinate ER (TOPROL XL) 50 mg 24 hr tablet Take 1 tablet by mouth every morning AND 0.5 tablets every afternoon. - nortriptyline (PAMELOR) 25 mg capsule Take 1 capsule by mouth daily at bedtime. - omeprazole (PRILOSEC) 20 mg capsule Take 1 capsule by mouth twice daily. 1/2 HR BEFORE MEAL. - cholecalciferol (VITAMIN D-3) 50 mcg (2,000 unit) tablet Take 2,000 Units by mouth once daily. - polyethylene glycol 3350 (MIRALAX, GLYCOLAX) 17 gram/dose powder Take 17 g by mouth once daily. - aspirin, enteric coated (ASPIRIN, ENTERIC COATED) 81 mg EC tablet Take 1 tablet by mouth once daily. - Methylcellulose, Laxative, (CITRUCEL) 500 mg ORAL Tab TAKE TWO TABLETS TWICE DAILY - omega-3 fatty acids/vitamin e(FISH OIL 1,000 MG CAP) Take one(1) tablet daily. - THERAPEUTIC MULTIVITAMIN TAB Take one(1) tablet daily. 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9] 07/22/2010 Rectal incontinence [R15.9] 03/23/2011 Eczema [L30.9] 07/01/2011 Other disorder of coccyx [M53.3] 05/05/2012 DDD (degenerative disc disease), cervical [M50.*09/10/2013 Medicare annual wellness visit, subsequent [Z00*05/29/2014 Prediabetes [R73.03] 11/16/2015 Multinodular thyroid [E04.2] 11/16/2015 Deafness in left ear [H91.92] 07/06/2016 Persistent disorder of initiating or maintainin*04/26/2017 Spinal stenosis of lumbar region without neurog*03/04/2019 Prescriptions ordered this encounter Disp Refills Start End CEPHALEXIN 500 MG CAPSULE 14 c* 0 12/18/2021 12/25/2021 Route: ORAL Sig: Take 1 capsule by mouth twice daily for 7 days. TRIMETHOPRIM 100 MG TABLET 30 t* 2 12/18/2021 Cmt: (more content not included)... Normal [facility] Bacteria Ur Culton 2 Bacteria identified Cx Nom (U) ORGANISM ID: 1 >=100,000 CFU/ml Klebsiella pneumoniae ORGANISM ID: 1 (KLEBSIELLA PNEUMONIAE) ANTIBIOTIC INTERPRETATION ADAIR STATUS REFERENCE RANGE Ampicillin R 16 F Ampicillin/Sulbact S 4 F Aztreonam S <=2 F Susceptible <=4 , Intermediate >4 , Resistant >=16 Cefazolin S <=1 F Susceptible 0-16 , Intermediate <0 or >16 , Resistant >16 Cefepime S <=1 F Susceptible <=2 , Susceptible-Dose Dependent >2 , Resistant >=16 Ceftriaxone S <=1 F Susceptible <=1 , Intermediate >1 , Resistant >=4 Ciprofloxacin R 1 F Susceptible <=0.25 , Intermediate >.25 , Resistant >.5 Ertapenem S <=0.25 F Susceptible <=0.5 , Intermediate >.5 , Resistant >1 Gentamicin S <=2 F Susceptible <=4 , Intermediate >4 , Resistant >8 Meropenem S <=0.5 F Susceptible <=1 , Intermediate >1 , Resistant >2 Nitrofurantoin I 64 F Susceptible <=32 , Intermediate >32 , Resistant >64 Piperacillin/Tazobac S 4 F Tobramycin S <=2 F Susceptible <=4 , Intermediate >4 , Resistant >8 Trimeth sulfameth S <=0.5 F Abnormal [facility] Comment on above: Performed By: #### 6 30-4 ####[facility]ORY[facility]IA [id number] [place] [address] [facility] CNOVon 12-15-2021 CNOV Office Visit (GYNGRN ) MENDOZACONCEPCION Simeon ([id number]) 1940 F Date Time Provider Department 12/15/21 10:45 AM BLANCA MUNOZ GYNGRShy During your visit today, we recorded the following information about you: Blood pressure Weight Height 118/78 71.7 kg 1.613 m Blanca Munoz MD 12/23/2021 12:51 PM Signed Female Pelvic Medicine AND Reconstructive Surgery Follow-Up Concepcion Donaldson is a 80 year old female, who presents for a follow-up of recurrent UTI, lichen planus-like vulvar dermatitis, OAB, FI. Last visit 09/08/21: 1. Vulvar lesion - Specimens labeled and sent to Pathology. Will notify patient of results in 1-2 weeks. Post-procedure instructions reviewed and written material given to the patient. - SURGICAL PATHOLOGY ? 2. Lichen planus-like dermatitis - Continue clobetasol taper - SURGICAL PATHOLOGY ? 3. Acute cystitis without hematuria - Suspect relapsing UTI. Await urine culture results for treatment. May consider extended course of 7-10 days. - URINE CULTURE - URINALYSIS, WITH MICROSCOPIC ? 4. Recurrent UTI - Start Hiprex after treatment of acute cystitis as above - Continue vaginal estrogen - Methenamine Hippurate (HIPREX) 1 gram tablet; Take 1 tablet by mouth twice daily with meals. Dispense: 180 tablet; Refill: 3 ? 5. OAB (overactive bladder) - Reassess after treatment of relapsing UTI - Baseline bladder diary reviewed and to be scanned into Epic ? 6. Full incontinence of feces - Schedule GI appointment as previously discussed ? 7. Alternating constipation and diarrhea - As above #6 ? 8. Vaginal atrophy - Continue vaginal estrogen History since last visit: Uncomfortable feeling, especially when she needs to void. Feels symptomatic of another UTI. She is concerned that she could have a kidney stone contributing to recurring infections. Urine cultures: 08/25/21 K pneumo 09/08/21 K pneumo 11/26/21 K pneumo Urinary Incontinence: yes, Voiding Dysfunction: no Urinary Frequency: no Urinary Urgency: yes Prolapse Symptoms: no Defecatory Dysfunction: yes Fecal Incontinence: yes Abnormal Bleeding: no Pain: no Abnormal Vaginal Discharge: no VISUAL STYLIST HISTORY: Last Pap: Date:N/A; Last Mammogram: Her last mammogram was 07/21/21. She has a previous history of an abnormal mammogram. LMP: No LMP recorded. Patient has had a hysterectomy.; Menopause post: Menstrual history: NA; Deliveries: 1 x I have confirmed and edited as necessary, the PFSH obtained by others. Blanca Munoz MD Manager Balance offered: Patient accepts, visit chaperoned by Lucille Gilliland MA. OBJECTIVE: BP 118/78 Ht 5' 3.5 (1.61m) Wt 158 lb (71.7kg) BMI 27.55 kg/(m2). General: Well appearing, alert, in no acute distress, well-hydrated, well nourished. Abdomen: Deferred Pelvic: Ext. Genitalia: no lesions Vagina: atrophic epithelium with estrogen effect Urine dip trace blood, +nitrite, small leuk Impression: Concepcion Donaldson is a 80 year old female with recurrent UTI, acute cystitis, lichen planus-like vulvar dermatitis, OAB, FI. Plan: 1. Recurrent UTI - Discussed stopping Hiprex and starting low dose daily antibiotic suppression for recurrent UTIs after treatment of current acute cystitis. - CT FLANK WO IVCON; Future 2. Acute cystitis without hematuria - Await culture results for treatment - URINE CULTURE - URINALYSIS, WITH MICROSCOPIC 3. Lichen planus-like dermatitis - Continue clobetasol, vaginal estrogen 4. OAB (overactive bladder) - Reevaluate symptoms once recurrent UTIs have been suppressed 5. Full incontinence of feces - GI evaluation as next step as previously recommended due to alternating constipation and diarrhea Medical Decision Making: Problems: Moderate: 2+ stable chronic illnesses Data: Unique test result(s) reviewed: 3+ Unique test(s) ordered: 2 Risk: Low: Low risk from testing/treatment Medical Decision Making Level: 4 - Moderate MD Blanca Millan MD 12/15/2021 11:[address] scan to rule out kidney stone We will call you with urine culture results and next steps in treatment Referring Provider: PRESTON HANEY [[id number]] Allergies As of Date: 12/15/2021 Noted Allergy Reaction FOSAMAX (ALENDRONATE SODIUM) 07/13/2005 5 - Intolerance CODEINE 07/13/2005 5 - Intolerance NIACIN 07/13/2005 5 - Intolerance SULFA (SULFONAMIDE ANTIBIOTICS) 07/13/2005 5 - Intolerance Comments: Stomach pain VIOXX (ROFECOXIB) 07/13/2005 5 - Intolerance ZYRTEC (CETIRIZINE HCL) 07/13/2005 5 - Intolerance CELEBREX (CELECOXIB) 07/13/2005 2 - Rash GRASS POLLEN 01/10/2008 Comments: scratchy throat NITROFURANTOIN MONOHYD/M-CRYST 05/04/2021 5 - Intolerance Comments: Stomach pain PENICILLINS 07/13/2005 4 - Hives Date Reviewed: 12/15/2021 Reviewed by: Lucille Gilliland Slitting Machine Feeder - Fully Assessed Reason for Visit: Recurrent U (more content not included)... Normal [facility] Urinalysis complete panel (U )on 12-15-2021 Bacteria LM.HPF (Urine sed) [#/Area] Many Abnormal None Seen [facility] Comment on above: Order Comment: Speci men Type: URINE SPECIMEN Ordering Facility: [facility] Address: [address] [place] [id number] Performed By: #### 2 4356-8 #### [facility] CLIA [id number] [address] [place] [address] [place] Bilirubin Ql (U) Negative Normal Negative [facility] Comment on above: Order Comment: Speci men Type: URINE SPECIMEN Ordering Facility: [facility] Address: [address] [place] [address] Performed By: #### 2 4356-8 #### [facility] CLIA [id number] [address] Clarity (Unsp spec) Turbid Abnormal Clear [facility] Comment on above: Order Comment: Speci men Type: URINE SPECIMEN Ordering Facility: [facility] Address: [address] [place] [address] Performed By: #### 2 4356-8 #### [facility] CLIA [id number] [address] Color (U) Light Yellow Normal yellow [facility] Comment on above: Order Comment: Speci men Type: URINE SPECIMEN Ordering Facility: [facility] Address: [address] [place] [address] Performed By: #### 2 4356-8 #### [facility] CLIA [id number] [address] Epithelial cells LM.HPF (Urine sed) [#/Area] Few Normal [facility] Comment on above: Order Comment: Speci men Type: URINE SPECIMEN Ordering Facility: [facility] Address: [address] [place] [address] Result Comment: Few Performed By: #### 2 4356-8 #### [facility] CLIA [id number] [address] Glucose Test strip (U) [Mass/Vol] Negative Normal Negative [facility] Comment on above: Order Comment: Speci men Type: URINE SPECIMEN Ordering Facility: [facility] Address: [address] [place] [address] Performed By: #### 2 4356-8 #### [facility] CLIA [id number] [address] Hemoglobin Ql (U) Negative Normal Negative [facility] Comment on above: Order Comment: Speci men Type: URINE SPECIMEN Ordering Facility: [facility] Address: [address] [address] Performed By: #### 2 4356-8 #### [facility] CLIA [id number] [address] Ketones Ql (U) Negative Normal Negative [facility] Comment on above: Order Comment: Speci men Type: URINE SPECIMEN Ordering Facility: [facility] Address: [address] [address] Performed By: #### 2 4356-8 #### [facility] CLIA [id number] [address] Leukocyte esterase Test strip Ql (U) 500 Fernie/mL Abnormal Negative [facility] Comment on above: Order Comment: Speci men Type: URINE SPECIMEN Ordering Facility: [facility] Address: [address] [place] [address] Performed By: #### 2 4356-8 #### [facility] CLIA [id number] [address] STATES OF [facility] Nitrite Ql (U) Negative Normal Negative [facility] Comment on above: Order Comment: Speci men Type: URINE SPECIMEN Ordering Facility: [facility] Address: [address] [place] [address] Performed By: #### 2 4356-8 #### [facility] CLIA [id number] [address] OF [facility] pH (U) 6.5 [pH] Normal 5.0-8.0 [facility] Comment on above: Order Comment: Speci men Type: URINE SPECIMEN Ordering Facility: [facility] Address: [address] [address] Performed By: #### 2 4356-8 #### [facility] CLIA [id number] [address] Protein (U) [Mass/Vol] Negative Normal Negative [facility] Comment on above: Order Comment: Speci men Type: URINE SPECIMEN Ordering Facility: [facility] Address: [address] [place] [address] Performed By: #### 2 4356-8 #### [facility] CLIA [id number] [address] RBC LM.HPF (Urine sed) [#/Area] 3-5 /HPF Abnormal 0-3 /HPF [facility] Comment on above: Order Comment: Speci men Type: URINE SPECIMEN Ordering Facility: [facility] Address: [address] [place] [address] Performed By: #### 2 4356-8 #### [facility] CLIA [id number] [address] Specific gravity (U) [Rel density] 1.007 Normal 1.005-1.030 [facility] Comment on above: Order Comment: Speci men Type: URINE SPECIMEN Ordering Facility: [facility] Address: [address] [place] [address] Performed By: #### 2 4356-8 #### [facility] CLIA [id number] [address] Urobilinogen Ql (U) Normal Normal Negative [facility] Comment on above: Order Comment: Speci men Type: URINE SPECIMEN Ordering Facility: [facility] Address: [address] [place] [address] Performed By: #### 2 4356-8 #### [facility] CLIA [id number] [address] WBC LM.HPF (Urine sed) [#/Area] /[HPF] Abnormal 0-5 /HPF [facility] Comment on above: Order Comment: Speci men Type: URINE SPECIMEN Ordering Facility: [facility] Address: [address] [place] [address] Performed By: #### 2 4356-8 #### [facility] CLIA [id number] [address] Yeast.budding LM.HPF (Urine sed) [#/Area] Few Abnormal None Seen [facility] Comment on above: Order Comment: Speci men Type: URINE SPECIMEN Ordering Facility: [facility] Address: [address] [place] [address] Performed By: #### 2 4356-8 #### [facility] CLIA [id number] [address] [place] [address] [place] [facility] CNPNon 12-01-2021 CNPN Telephone ([facility]) CONCEPCION DONALDSON ([id number]) 1940 F Date Time Provider Department 12/01/21 BLANCA MUNOZ During your visit today, we recorded the following information about you: Blanca Munoz MD 12/01/2021 12:13 PM Signed Please inform pt she can hold Hiprex while taking Cipro then restart after completing antibiotics. MD Terri Millan Dalton Cma 12/01/2021 1:06 PM Signed Pt advised of recommendations Allergies As of Date: 12/01/2021 Noted Allergy Reaction FOSAMAX (ALENDRONATE SODIUM) 07/13/2005 5 - Intolerance CODEINE 07/13/2005 5 - Intolerance NIACIN 07/13/2005 5 - Intolerance SULFA (SULFONAMIDE ANTIBIOTICS) 07/13/2005 5 - Intolerance VIOXX (ROFECOXIB) 07/13/2005 5 - Intolerance ZYRTEC (CETIRIZINE HCL) 07/13/2005 5 - Intolerance CELEBREX (CELECOXIB) 07/13/2005 2 - Rash GRASS POLLEN 01/10/2008 Comments: scratchy throat NITROFURANTOIN MONOHYD/M-CRYST 05/04/2021 5 - Intolerance PENICILLINS 07/13/2005 4 - Hives Date Reviewed: 12/01/2021 Reviewed by: Chel Garza Ma - Fully Assessed Reason for Visit: Results [95] Prescriptions as of 12/01/2021 - ciprofloxacin HCl (CIPRO) 250 mg tablet Take 1 tablet by mouth twice daily for 5 days. - Methenamine Hippurate (HIPREX) 1 gram tablet Take 1 tablet by mouth twice daily with meals. - clobetasol (TEMOVATE) 0.05 % ointment Apply to vulva twice daily for four weeks. Then, apply daily for four weeks. Then, apply three times per week for four weeks. Then apply twice weekly. - estradiol (ESTRACE) 0.01 % (0.1 mg/gram) vaginal cream Use 1 g vaginally daily at bedtime for 14 days, THEN 1 g two times a week. - calcitriol (ROCALTROL) 0.25 mcg capsule Take 1 capsule by mouth once daily. - lisinopril-hydroCHLOROt hiazide (PRINZIDE,ZESTORETIC) 20-12.5 mg per tablet Take 1 tablet by mouth twice daily. ( adjusted dose and sent RX) - lovastatin 40 mg tablet Take 1 tablet by mouth daily at bedtime. - metoprolol succinate ER (TOPROL XL) 50 mg 24 hr tablet Take 1 tablet by mouth every morning AND 0.5 tablets every afternoon. - nortriptyline (PAMELOR) 25 mg capsule Take 1 capsule by mouth daily at bedtime. - omeprazole (PRILOSEC) 20 mg capsule Take 1 capsule by mouth twice daily. 1/2 HR BEFORE MEAL. - cholecalciferol (VITAMIN D-3) 50 mcg (2,000 unit) tablet Take 2,000 Units by mouth once daily. - polyethylene glycol 3350 (MIRALAX, GLYCOLAX) 17 gram/dose powder Take 17 g by mouth once daily. - aspirin, enteric coated (ASPIRIN, ENTERIC COATED) 81 mg EC tablet Take 1 tablet by mouth once daily. - Methylcellulose, Laxative, (CITRUCEL) 500 mg ORAL Tab TAKE TWO TABLETS TWICE DAILY - omega-3 fatty acids/vitamin e(FISH OIL 1,000 MG CAP) Take one(1) tablet daily. - THERAPEUTIC MULTIVITAMIN TAB Take one(1) tablet daily. 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9] 07/22/2010 Rectal incontinence [R15.9] 03/23/2011 Eczema [L30.9] 07/01/2011 Other disorder of coccyx [M53.3] 05/05/2012 DDD (degenerative disc disease), cervical [M50.*09/10/2013 Medicare annual wellness visit, subsequent [Z00*05/29/2014 Prediabetes [R73.03] 11/16/2015 Multinodular thyroid [E04.2] 11/16/2015 Deafness in left ear [H91.92] 07/06/2016 Persistent disorder of initiating or maintainin*04/26/2017 Spinal stenosis of lumbar region without neurog*03/04/2019 Encounter Status:Closed by BLANCA MUNOZ on 12/01/21 [facility] Matthew 09-17-2021 RICH Telephone ([facility]) MENDOZACONCEPCION Simeon ([id number]) 1940 F Date Time Provider Department 09/17/21 BLANCA MUNOZ During your visit today, we recorded the following information about you: Jasson Polk Ma 09/17/2021 8:21 AM Signed Patient called stating that her daughter is going through recurrent UTI's and just found out that she does have a Kidney stone. She is asking if this could be the case in her case as well and is requesting an US be done to rule this out. She also states that the Hiprex is expensive (200.00 with insurance and 160.00 with Good Rx) and is asking if there is something cheaper that can do the same thing? Can you advise? Jasson Shepard APRN.[employer] CLERK 09/17/2021 8:45 AM Signed Spoke with patient. We discussed indications for ultrasound at length. We discussed D-mannose as an alternative to the Hiprex since it is costly. She is using vaginal estrogen cream. Questions answered. Laura Shepard, [place].[employer] CLERK Allergies As of Date: 09/17/2021 Noted Allergy Reaction FOSAMAX (ALENDRONATE SODIUM) 07/13/2005 5 - Intolerance CODEINE 07/13/2005 5 - Intolerance NIACIN 07/13/2005 5 - Intolerance SULFA (SULFONAMIDE ANTIBIOTICS) 07/13/2005 5 - Intolerance VIOXX (ROFECOXIB) 07/13/2005 5 - Intolerance ZYRTEC (CETIRIZINE HCL) 07/13/2005 5 - Intolerance CELEBREX (CELECOXIB) 07/13/2005 2 - Rash GRASS POLLEN 01/10/2008 Comments: scratchy throat NITROFURANTOIN MONOHYD/M-CRYST 05/04/2021 5 - Intolerance PENICILLINS 07/13/2005 4 - Hives Date Reviewed: 09/08/2021 Reviewed by: Blanca Munoz MD - Fully Assessed Reason for Visit: Radiology US [1490] Prescriptions as of 09/17/2021 - ciprofloxacin HCl (CIPRO) 500 mg tablet Take 1 tablet by mouth twice daily for 7 days. - Methenamine Hippurate (HIPREX) 1 gram tablet Take 1 tablet by mouth twice daily with meals. - clobetasol (TEMOVATE) 0.05 % ointment Apply to vulva twice daily for four weeks. Then, apply daily for four weeks. Then, apply three times per week for four weeks. Then apply twice weekly. - estradiol (ESTRACE) 0.01 % (0.1 mg/gram) vaginal cream Use 1 g vaginally daily at bedtime for 14 days, THEN 1 g two times a week. - calcitriol (ROCALTROL) 0.25 mcg capsule Take 1 capsule by mouth once daily. - lisinopril-hydroCHLOROt hiazide (PRINZIDE,ZESTORETIC) 20-12.5 mg per tablet Take 1 tablet by mouth twice daily. ( adjusted dose and sent RX) - lovastatin 40 mg tablet Take 1 tablet by mouth daily at bedtime. - metoprolol succinate ER (TOPROL XL) 50 mg 24 hr tablet Take 1 tablet by mouth every morning AND 0.5 tablets every afternoon. - nortriptyline (PAMELOR) 25 mg capsule Take 1 capsule by mouth daily at bedtime. - omeprazole (PRILOSEC) 20 mg capsule Take 1 capsule by mouth twice daily. 1/2 HR BEFORE MEAL. - cholecalciferol (VITAMIN D-3) 50 mcg (2,000 unit) tablet Take 2,000 Units by mouth once daily. - polyethylene glycol 3350 (MIRALAX, GLYCOLAX) 17 gram/dose powder Take 17 g by mouth once daily. - aspirin, enteric coated (ASPIRIN, ENTERIC COATED) 81 mg EC tablet Take 1 tablet by mouth once daily. - Methylcellulose, Laxative, (CITRUCEL) 500 mg ORAL Tab TAKE TWO TABLETS TWICE DAILY - omega-3 fatty acids/vitamin e(FISH OIL 1,000 MG CAP) Take one(1) tablet daily. - THERAPEUTIC MULTIVITAMIN TAB Take one(1) tablet daily. 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.09] 08/03/2006 BENIGN PARXYSMAL VERTIGO [H81.10] 08/03/2006 Uterovaginal Prolapse, Incomplete [N81.2] 06/08/2007 09/29/2009 Postmenopausal atrophic vaginitis [N95.2] 06/08/2007 07/06/2016 Chronic GERD [K21.9] 07/25/2007 Urgency of urination [R39.15] 01/10/2008 07/06/2016 Urge Incontinence [N39.41] 01/10/2008 09/29/2009 Female Stress Incontinence [N39.3] 01/10/2008 09/29/2009 GASTRITIS ANTRAL( W/O Hemorrhage) [K29.60] 05/27/2008 07/06/2016 Incontinence of feces [787.6] 09/29/2009 03/23/2011 Rectocele [N81.6] 09/29/2009 Vision loss [H54.7] 04/21/2010 07/06/2016 IBS (irritable bowel syndrome) [K58.9] 07/22/2010 Rectal incontinence [R15.9] 03/23/2011 Eczema [L30.9] 07/01/2011 Other disorder of coccyx [M53.3] 05/05/2012 DDD (degenerative disc disease), cervical [M50.*09/10/2013 Medicare annual wellness visit, subsequent [Z00*05/29/2014 Prediabetes [R73.03] 11/16/2015 Multinodular thyroid [E04.2] 11/16/2015 Deafness in left ear [H91.92] 07/06/2016 Persistent disorder of initiating or maintainin*04/26/2017 Spinal stenosis of lumbar region without neurog*03/04/2019 Encounter Status:Closed by LAURA SHEPARD on 09/17/21 [facility] Matthew 09-11-2021 HEYDIN Telephone (ANNETTE) CONCEPCION DONALDSON ([id number]) 1940 F Date Time Provider Department 09/11/21 BLANCA MUNOZ During your visit today, we recorded the following information about you: Blanca Munoz MD 09/11/2021 5:23 PM Signed Called and spoke with pt. Cipro x7 days prescribed for UTI. Vulvar biopsy result discussed. Continue clobetasol taper. Blanca Munoz MD Allergies As of Date: 09/11/2021 Noted Allergy Reaction FOSAMAX (ALENDRONATE SODIUM) 07/13/2005 5 - Intolerance CODEINE 07/13/2005 5 - Intolerance NIACIN 07/13/2005 5 - Intolerance SULFA (SULFONAMIDE ANTIBIOTICS) 07/13/2005 5 - Intolerance VIOXX (ROFECOXIB) 07/13/2005 5 - Intolerance ZYRTEC (CETIRIZINE HCL) 07/13/2005 5 - Intolerance CELEBREX (CELECOXIB) 07/13/2005 2 - Rash GRASS POLLEN 01/10/2008 Comments: scratchy throat NITROFURANTOIN MONOHYD/M-CRYST 05/04/2021 5 - Intolerance PENICILLINS 07/13/2005 4 - Hives Date Reviewed: 09/08/2021 Reviewed by: Blanca Munoz MD - Fully Assessed Reason for Visit: Results [95] Primary Visit Diagnosis:Acute cystitis without hematuria [N30.00] Other Visit Diagnosis:Recurrent UTI [N39.0] Order(s):ciprofloxacin HCl (CIPRO) 500 mg tabletTake 1 tablet by mouth twice daily for 7 days.Disp: 14 tabletRfl: 0 URINE CULTURE [SQURCUL] Order #: [id number] STANDING Prescriptions as of 09/11/2021 - ciprofloxacin HCl (CIPRO) 500 mg tablet Take 1 tablet by mouth twice daily for 7 days. - Methenamine Hippurate (HIPREX) 1 gram tablet Take 1 tablet by mouth twice daily with meals. - clobetasol (TEMOVATE) 0.05 % ointment Apply to vulva twice daily for four weeks. Then, apply daily for four weeks. Then, apply three times per week for four weeks. Then apply twice weekly. - estradiol (ESTRACE) 0.01 % (0.1 mg/gram) vaginal cream Use 1 g vaginally daily at bedtime for 14 days, THEN 1 g two times a week. - calcitriol (ROCALTROL) 0.25 mcg capsule Take 1 capsule by mouth once daily. - lisinopril-hydroCHLOROt hiazide (PRINZIDE,ZESTORETIC) 20-12.5 mg per tablet Take 1 tablet by mouth twice daily. ( adjusted dose and sent RX) - lovastatin 40 mg tablet Take 1 tablet by mouth daily at bedtime. - metoprolol succinate ER (TOPROL XL) 50 mg 24 hr tablet Take 1 tablet by mouth every morning AND 0.5 tablets every afternoon. - nortriptyline (PAMELOR) 25 mg capsule Take 1 capsule by mouth daily at bedtime. - omeprazole (PRILOSEC) 20 mg capsule Take 1 capsule by mouth twice daily. 1/2 HR BEFORE MEAL. - cholecalciferol (VITAMIN D-3) 50 mcg (2,000 unit) tablet Take 2,000 Units by mouth once daily. - polyethylene glycol 3350 (MIRALAX, GLYCOLAX) 17 gram/dose powder Take 17 g by mouth once daily. - aspirin, enteric coated (ASPIRIN, ENTERIC COATED) 81 mg EC tablet Take 1 tablet by mouth once daily. - Methylcellulose, Laxative, (CITRUCEL) 500 mg ORAL Tab TAKE TWO TABLETS TWICE DAILY - omega-3 fatty acids/vitamin e(FISH OIL 1,000 MG CAP) Take one(1) tablet daily. - THERAPEUTIC MULTIVITAMIN TAB Take one(1) tablet daily. 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9] 07/22/2010 Rectal incontinence [R15.9] 03/23/2011 Eczema [L30.9] 07/01/2011 Other disorder of coccyx [M53.3] 05/05/2012 DDD (degenerative disc disease), cervical [M50.*09/10/2013 Medicare annual wellness visit, subsequent [Z00*05/29/2014 Prediabetes [R73.03] 11/16/2015 Multinodular thyroid [E04.2] 11/16/2015 Deafness in left ear [H91.92] 07/06/2016 Persistent disorder of initiating or maintainin*04/26/2017 Spinal stenosis of lumbar region without neurog*03/04/2019 Prescriptions ordered this encounter Disp Refills Start End CIPROFLOXACIN 500 MG TABLET 14 t* 0 09/11/2021 09/18/2021 Route: ORAL Sig: Take 1 tablet by mouth twice daily for 7 days. Encounter Status:Closed by BLANCA MUNOZ on 09/11/21 Normal [facility] Bacteria Ur Culton 2 Bacteria identified Cx Nom (U) ORGANISM ID: 1 >=100,000 CFU/ml Klebsiella pneumoniae ORGANISM ID: 2 10,000 -<50,000 CFU/ml Normal urogenital daniel ORGANISM ID: 1 (KLEBSIELLA PNEUMONIAE) ANTIBIOTIC INTERPRETATION ADAIR STATUS REFERENCE RANGE Ampicillin R >16 F Susceptible <=8 , Intermediate >8 , Resistant >16 Ampicillin/Sulbact S 8 F Aztreonam S <=2 F Susceptible <=4 , Intermediate >4 , Resistant >=16 Cefazolin S 2 F Susceptible 0-16 , Intermediate <0 or >16 , Resistant >16 Cefepime S <=1 F Susceptible <=2 , Susceptible-Dose Dependent >2 , Resistant >=16 Ceftriaxone S <=1 F Susceptible <=1 , Intermediate >1 , Resistant >=4 Ciprofloxacin S <=0.25 F Susceptible <=0.25 , Intermediate >.25 , Resistant >.5 Ertapenem S <=0.25 F Susceptible <=0.5 , Intermediate >.5 , Resistant >1 Gentamicin S <=2 F Susceptible <=4 , Intermediate >4 , Resistant >8 Meropenem S <=0.5 F Susceptible <=1 , Intermediate >1 , Resistant >2 Nitrofurantoin R >64 F Susceptible <=32 , Intermediate >32 , Resistant >64 Piperacillin/Tazobac S 8 F Tobramycin S <=2 F Susceptible <=4 , Intermediate >4 , Resistant >8 Trimeth sulfameth S <=0.5 F Abnormal [facility] Comment on above: Performed By: #### 6 30-4 ####[facility]IA [id number] [address] OF [facility] CNOVon 09-08-2021 CNOV Office Visit (GYNGRN ) CONCEPCION DONALDSON ([id number]) 1940 F Date Time Provider Department 09/08/21 2:30 PM BLANCA MUNOZ During your visit today, we recorded the following information about you: Blood pressure Weight Height 146/72 71.2 kg 1.6 m Blanca Munoz MD 09/08/2021 3:32 PM Signed Concepcion Donaldson is a 80 year old female who presents today for a vulvar biopsy. Indication: Vulvar lesion. UNIVERSAL PROTOCOL / SAFETY CHECKLIST Procedure to be Performed: vulvar biopsy Sign In: A Moment of CARE was completed. Personnel directly involved with the procedure wore the appropriate PPE (Personal Protective Equipment). No special equipment needed. Patient/Surrogate Stated/Verified: PATIENT VERIFIED(optional for EMERGENT procedures): Patient name, Date of , Relevant allergies and The intended procedure Time Out Communication: Intended patient and procedure match the source documents. Consent documented and matches the intended procedure. No relevant labs, photos, and/or imaging studies were applicable for review. No correct side/site applicable for marking and visibility. No medications required for procedure. No fire risk assessment and interventions applicable. No implant(s) inserted. Sign Out: SIGN OUT (optional for EMERGENT procedures): All specimen containers correctly labeled. All instruments, equipment, possible retained foreign bodies accounted for. Post-procedure follow-up management communicated and Plan of Care Visit completed when applicable. Blanca Munoz MD PROCEDURE NOTE: GROSS LESIONS: Yes, non healing lesion inner surface of left labium minus BIOPSY: Area was cleansed with betadine and anesthetized with 1mL 1% lidocaine. 4mm Lori punch used to biopsy region. HEMOSTASIS: Obtained with silver nitrate Procedure Summary: Patient tolerated procedure well. ASSESSMENT/PLAN: 1. Vulvar lesion - Specimens labeled and sent to Pathology. Will notify patient of results in 1-2 weeks. Post-procedure instructions reviewed and written material given to the patient. 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 Acute cystitis without hematuria - Suspect relapsing UTI. Await urine culture results for treatment. May consider extended course of 7-10 days. - URINE CULTURE - URINALYSIS, WITH MICROSCOPIC 4. Recurrent UTI - Start Hiprex after treatment of acute cystitis as above - Continue vaginal estrogen - Methenamine Hippurate (HIPREX) 1 gram tablet; Take 1 tablet by mouth twice daily with meals. Dispense: 180 tablet; Refill: 3 5. OAB (overactive bladder) - Reassess after treatment of relapsing UTI - Baseline bladder diary reviewed and to be scanned into Epic 6. Full incontinence of feces - Schedule GI appointment as previously discussed 7. Alternating constipation and diarrhea - As above #6 8. Vaginal atrophy - Continue vaginal estrogen Follow up with me in 3 months MD Blanca Millan MD 09/08/2021 3:23 PM Addendum Schedule appointment with GI Follow up with Dr. Munoz in 3 months VULVAR BIOPSY Many conditions may cause your assistant product manager to suggest a vulvar biopsy including vulvar itching, unresponsive to therapy, ulcerated lesions, pigmented lesions, and tumors. The biopsy result will assist your assistant product manager to devise a treatment plan suitable to your condition. HOW IS THE PROCEDURE PERFORMED? 1. The procedure will be explained to you, after which your consent will be obtained. You should tell us if you have an allergic history to local anesthetics, e.g. the medication the dentist use to create numbness. 2. You will be prepared as if you were to have a regular assistant product manager examination. 3. The vulvar area will be prepared with an antiseptic solution. 4. Additional reagents may be swabbed on your vulva to better delineate the area to be biopsied. 5. A local anesthetic will be injected into the areas selected to be biopsied. 6. The defect (s) of the biopsy site (s) will be reapproximated with suture material to stop the bleeding and to allow healing. Occasionally, we can use certain chemicals to arrest bleeding without the use of sutures. 7. If sutures are used, they will dissolve in 7 - 14 days. WHAT SHOULD I EXPECT AND WHAT PRECAUTIONS SHOULD I TAKE AFTER THE BIOPSY? 1. Usually there is local discomfort, swelling, and skin discoloration. Using cold compresses overnight usually alleviates the discomfort considerably. Warm compresses thereafter can be used as needed. Prescribed analgesic (pain killers) are not necessary. You may use Advil, Tylenol, etc. for pain relief. 2. You may shower or take tub baths. 3. You should call the office if there is excesive swelling, bleeding, fever, chills, sweats, or difficulty walking. 4. Biopsy results will be available (more content not included)... Normal [facility] SURGICAL PATHOLOGYon CASE REPORT Normal [facility] Comment on above: Order Comment: Speci men Type: TISSUE SPECIMEN Ordering Facility: [facility] Address: [address] [place] [address] Result Comment: Surg ical Pathology Report Case: [id number] Authorizing Provider: Blanca Munoz MD Collected: 09/08/2021 03:55 PM Ordering Location: Urogynecology Received: 09/09/2021 11:06 AM Pathologist: Enrique Koehler MD Specimen: VULVA BIOPSY, left Performed By: #### S #### [facility] CLIA [id number] [address] [place] [address] CLINICAL HISTORY non healing sore on inner surface of left labium minus, h/o lichen planus like dermatitis Normal [facility] Comment on above: Order Comment: Speci men Type: TISSUE SPECIMEN Ordering Facility: [facility] Address: [address] [place] [address] Performed By: #### S #### [facility] CLIA [id number] [address] [place] [address] DIAGNOSIS COMMENT Sections demonstrate a biopsy of benign skin with a flattened epidermis with slightly prominent keratohyalin granules but no significant orthokeratosis. There is a thin bandlike infiltrate of lymphocytes in the superficial dermis but there is no evidence of vacuolar alteration of the basal layer. There are scattered dermal melanophages present. Given the findings in this patient's previous biopsy, the current findings could represent a burned-out phase of lichen planus-like dermatitis. The dermal changes of lichen sclerosis are not seen in this biopsy sampling. Normal [facility] Comment on above: Order Comment: Speci men Type: TISSUE SPECIMEN Ordering Facility: [facility] Address: [address] [place] [address] Performed By: #### S #### [facility] CLIA [id number] [address] [place] [address] FINAL DIAGNOSIS Normal [facility] Comment on above: Order Comment: Speci men Type: TISSUE SPECIMEN Ordering Facility: [facility] Address: [address] [place] [address] Result Comment: A. L eft vulva, biopsy: - Benign skin with mild superficial chronic dermal lymphoid infiltrate. See comment. Performed By: #### S #### [facility] CLIA [id number] [address] [place] [address] FINAL PERFORMING LAB Normal [facility] Comment on above: Order Comment: Speci men Type: TISSUE SPECIMEN Ordering Facility: [facility] Address: [address] [place] [address] Result Comment: Diag nostic interpretation performed at [facility], [address] [place] [address] CLIA# [id number] Braille Proofreader: Enrique Koehler M.D. Performed By: #### S #### [facility] CLIA [id number] [address] [place] [address] GROSS DESCRIPTION Normal [facility] Comment on above: Order Comment: Speci men Type: TISSUE SPECIMEN Ordering Facility: [facility] Address: [address] [place] [address] Result Comment: A. V ULVA BIOPSY. A. Received in formalin labeled left vulva biopsy is a fleming soft fleming tissue measuring 0.4 x 0.3 x 0.1 cm. The specimen is totally submitted in formalin one cassette. Gross examination performed at [facility], [address] [place] [address] KVB September 09, 2021 11:36 AM Performed By: #### S #### [facility] CLIA [id number] [address] Urinalysis complete panel (U )on 09-08-2021 Bacteria LM.HPF (Urine sed) [#/Area] 4+ /HPF Abnormal None Seen [facility] Comment on above: Order Comment: Speci men Type: URINE SPECIMEN Ordering Facility: [facility] Address: [address] [place] [address] Performed By: #### 2 4356-8 #### [facility] CLIA [id number] [address] Bilirubin Ql (U) Negative Normal Negative [facility] Comment on above: Order Comment: Speci men Type: URINE SPECIMEN Ordering Facility: [facility] Address: [address] [place] [address] Performed By: #### 2 4356-8 #### [facility] CLIA [id number] [address] Clarity (Unsp spec) Cloudy Abnormal Clear [facility] Comment on above: Order Comment: Speci men Type: URINE SPECIMEN Ordering Facility: [facility] Address: [address] [place] [address] Performed By: #### 2 4356-8 #### [facility] CLIA [id number] [address] Color (U) Yellow Normal Yellow [facility] Comment on above: Order Comment: Speci men Type: URINE SPECIMEN Ordering Facility: [facility] Address: [address] [place] [address] Performed By: #### 2 4356-8 #### [facility] CLIA [id number] [address] Epithelial cells LM.HPF (Urine sed) [#/Area] 10.3 /[HPF] Normal [facility] Comment on above: Order Comment: Speci men Type: URINE SPECIMEN Ordering Facility: [facility] Address: [address] [place] [address] Performed By: #### 2 4356-8 #### [facility] CLIA [id number] [address] [place] Glucose Test strip (U) [Mass/Vol] Negative Normal Negative [facility] Comment on above: Order Comment: Speci men Type: URINE SPECIMEN Ordering Facility: [facility] Address: [address] [place] [address] Performed By: #### 2 4356-8 #### [facility] CLIA [id number] [address] Hemoglobin Ql (U) Negative Normal Negative [facility] Comment on above: Order Comment: Speci men Type: URINE SPECIMEN Ordering Facility: [facility] Address: [address] [place] [address] Performed By: #### 2 4356-8 #### [facility] CLIA [id number] [address] Hyaline casts (Urine sed) [#/Area] 4-10 /LPF Abnormal 0 /LPF [facility] Comment on above: Order Comment: Speci men Type: URINE SPECIMEN Ordering Facility: [facility] Address: [address] [place] [address] Performed By: #### 2 4356-8 #### [facility] CLIA [id number] [address] Ketones Ql (U) Negative Normal Negative [facility] Comment on above: Order Comment: Speci men Type: URINE SPECIMEN Ordering Facility: [facility] Address: [address] [place] [address] Performed By: #### 2 4356-8 #### [facility] CLIA [id number] [address] Leukocyte esterase Test strip Ql (U) Small Abnormal Negative [facility] Comment on above: Order Comment: Speci men Type: URINE SPECIMEN Ordering Facility: [facility] Address: [address] [place] [address] Performed By: #### 2 4356-8 #### [facility] CLIA [id number] [address] Nitrite Ql (U) Negative Normal Negative [facility] Comment on above: Order Comment: Speci men Type: URINE SPECIMEN Ordering Facility: [facility] Address: [address] [place] [address] Performed By: #### 2 4356-8 #### [facility] CLIA [id number] [address] pH (U) 6.0 [pH] Normal 5.0-8.0 [facility] Comment on above: Order Comment: Speci men Type: URINE SPECIMEN Ordering Facility: [facility] Address: [address] [place] [address] Performed By: #### 2 4356-8 #### [facility] CLIA [id number] [address] Protein (U) [Mass/Vol] Negative Normal Negative [facility] Comment on above: Order Comment: Speci men Type: URINE SPECIMEN Ordering Facility: [facility] Address: [address] [place] [address] Performed By: #### 2 4356-8 #### [facility] CLIA [id number] [address] RBC LM.HPF (Urine sed) [#/Area] 3-5 /HPF Abnormal 0-3 /HPF [facility] Comment on above: Order Comment: Speci men Type: URINE SPECIMEN Ordering Facility: [facility] Address: [address] [place] [address] Performed By: #### 2 4356-8 #### [facility] CLIA [id number] [address] Specific gravity (U) [Rel density] 1.011 Normal 1.005-1.030 [facility] Comment on above: Order Comment: Speci men Type: URINE SPECIMEN Ordering Facility: [facility] Address: [address] [place] [address] Performed By: #### 2 4356-8 #### [facility] CLIA [id number] [address] Urobilinogen Ql (U) 0.2 EU/dL Normal 0.2-1.0 EU/dL [facility] Comment on above: Order Comment: Speci men Type: URINE SPECIMEN Ordering Facility: [facility] Address: [address] [place] [address] Performed By: #### 2 4356-8 #### [facility] CLIA [id number] [address] [place] WBC LM.HPF (Urine sed) [#/Area] 11-25 /HPF Abnormal 0-5 /HPF [facility] Comment on above: Order Comment: Speci men Type: URINE SPECIMEN Ordering Facility: [facility] Address: [address] [place], [place] [id number] Performed By: #### 2 4356-8 #### [facility] CLIA [id number] [address] [place] Matthew 08-28-2021 RICH Telephone (ANNETTE) CONCEPCION DONALDSON ([id number]) 1940 F Date Time Provider Department 08/28/21 LAURA SHEPARD During your visit today, we recorded the following information about you: Laura Shepard APRN.CNP 08/28/2021 12:57 PM Signed Advise patient urine culture confirms UTI. Cipro prescription sent to pharmacy. JOSÉ MIGUEL Marin 08/28/2021 2:12 PM Signed Called and informed patient of results. Tiffany Da Silva RN Allergies As of Date: 08/28/2021 Noted Allergy Reaction FOSAMAX (ALENDRONATE SODIUM) 07/13/2005 5 - Intolerance CODEINE 07/13/2005 5 - Intolerance NIACIN 07/13/2005 5 - Intolerance SULFA (SULFONAMIDE ANTIBIOTICS) 07/13/2005 5 - Intolerance VIOXX (ROFECOXIB) 07/13/2005 5 - Intolerance ZYRTEC (CETIRIZINE HCL) 07/13/2005 5 - Intolerance CELEBREX (CELECOXIB) 07/13/2005 2 - Rash GRASS POLLEN 01/10/2008 Comments: scratchy throat NITROFURANTOIN MONOHYD/M-CRYST 05/04/2021 5 - Intolerance PENICILLINS 07/13/2005 4 - Hives Date Reviewed: 08/26/2021 Reviewed by: Blanca Munoz MD - Fully Assessed Reason for Visit: Results [95] Primary Visit Diagnosis:Acute cystitis with hematuria [N30.01] Order(s):ciprofloxacin HCl (CIPRO) 250 mg tabletTake 1 tablet by mouth twice daily for 3 days.Disp: 6 tabletRfl: 0 Prescriptions as of 08/28/2021 - ciprofloxacin HCl (CIPRO) 250 mg tablet Take 1 tablet by mouth twice daily for 3 days. - clobetasol (TEMOVATE) 0.05 % ointment Apply to vulva twice daily for four weeks. Then, apply daily for four weeks. Then, apply three times per week for four weeks. Then apply twice weekly. - estradiol (ESTRACE) 0.01 % (0.1 mg/gram) vaginal cream Use 1 g vaginally daily at bedtime for 14 days, THEN 1 g two times a week. - calcitriol (ROCALTROL) 0.25 mcg capsule Take 1 capsule by mouth once daily. - lisinopril-hydroCHLOROt hiazide (PRINZIDE,ZESTORETIC) 20-12.5 mg per tablet Take 1 tablet by mouth twice daily. ( adjusted dose and sent RX) - lovastatin 40 mg tablet Take 1 tablet by mouth daily at bedtime. - metoprolol succinate ER (TOPROL XL) 50 mg 24 hr tablet Take 1 tablet by mouth every morning AND 0.5 tablets every afternoon. - nortriptyline (PAMELOR) 25 mg capsule Take 1 capsule by mouth daily at bedtime. - omeprazole (PRILOSEC) 20 mg capsule Take 1 capsule by mouth twice daily. 1/2 HR BEFORE MEAL. - cholecalciferol (VITAMIN D-3) 50 mcg (2,000 unit) tablet Take 2,000 Units by mouth once daily. - polyethylene glycol 3350 (MIRALAX, GLYCOLAX) 17 gram/dose powder Take 17 g by mouth once daily. - aspirin, enteric coated (ASPIRIN, ENTERIC COATED) 81 mg EC tablet Take 1 tablet by mouth once daily. - Methylcellulose, Laxative, (CITRUCEL) 500 mg ORAL Tab TAKE TWO TABLETS TWICE DAILY - omega-3 fatty acids/vitamin e(FISH OIL 1,000 MG CAP) Take one(1) tablet daily. - THERAPEUTIC MULTIVITAMIN TAB Take one(1) tablet daily. 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9] 07/22/2010 Rectal incontinence [R15.9] 03/23/2011 Eczema [L30.9] 07/01/2011 Other disorder of coccyx [M53.3] 05/05/2012 DDD (degenerative disc disease), cervical [M50.*09/10/2013 Medicare annual wellness visit, subsequent [Z00*05/29/2014 Prediabetes [R73.03] 11/16/2015 Multinodular thyroid [E04.2] 11/16/2015 Deafness in left ear [H91.92] 07/06/2016 Persistent disorder of initiating or maintainin*04/26/2017 Spinal stenosis of lumbar region without neurog*03/04/2019 Prescriptions ordered this encounter Disp Refills Start End CIPROFLOXACIN 250 MG TABLET 6 ta* 0 08/28/2021 08/31/2021 Route: ORAL Sig: Take 1 tablet by mouth twice daily for 3 days. Encounter Status:Closed by LAURA SHEPARD on 08/28/21 Normal [facility] Bacteria Ur Culton Bacteria identified Cx Nom (U) ORGANISM ID: 1 >=100,000 CFU/ml Klebsiella pneumoniae ORGANISM ID: 2 10,000 -<50,000 CFU/ml Normal urogenital daniel ORGANISM ID: 1 (KLEBSIELLA PNEUMONIAE) ANTIBIOTIC INTERPRETATION ADAIR STATUS REFERENCE RANGE Ampicillin R <=4 F Ampicillin/Sulbact S 2 F Aztreonam S <=2 F Susceptible <=4 , Intermediate >4 , Resistant >=16 Cefazolin S <=1 F Susceptible 0-16 , Intermediate <0 or >16 , Resistant >16 Cefepime S <=1 F Susceptible <=2 , Susceptible-Dose Dependent >2 , Resistant >=16 Ceftriaxone S <=1 F Susceptible <=1 , Intermediate >1 , Resistant >=4 Ciprofloxacin S <=0.25 F Susceptible <=0.25 , Intermediate >.25 , Resistant >.5 Ertapenem S <=0.25 F Susceptible <=0.5 , Intermediate >.5 , Resistant >1 Gentamicin S <=2 F Susceptible <=4 , Intermediate >4 , Resistant >8 Meropenem S <=0.5 F Susceptible <=1 , Intermediate >1 , Resistant >2 Nitrofurantoin S <=16 F Susceptible <=32 , Intermediate >32 , Resistant >64 Piperacillin/Tazobac S <=2 F Trimeth sulfameth S <=0.5 F Abnormal [facility] Comment on above: Performed By: #### 6 30-4 #### [facility] CLIA [id number] [address] [place] [address] [place] CNOVon 08-25-2021 CNOV Office Visit (GYNGRN ) CONCEPCION DONALDSON ([id number]) 1940 F Date Time Provider Department 08/25/21 11:00 AM BLANCA MUNOZ GYNGRN During your visit today, we recorded the following information about you: Weight Height 71.2 kg 1.6 m Blanca Munoz MD 08/26/2021 4:23 PM Signed Female Pelvic Medicine AND Reconstructive Surgery Consult CHIEF COMPLAINT: Concepcion Donaldson is a 80 year old female who presents for consultation requested by Dr. Karishma Brand MD for an opinion regarding subacute on chronic vulvitis. HISTORY OF PRESENT ILLNESS: Pt reports vulvar irritation started in May 2020. Currently using triamcinolone ointment twice daily. If she uses it continuously, the vulva externally is less irritated. It has not helped with irritation of the inside surface of the labia minora. Pt admits she has not been applying triamcinolone to this area. Using Replens internally vaginally. She has not tried vaginal estrogen due to prior abnormal mammogram, but mammogram 07/21/21 confirmed benign findings. Uses Dove, Cere Ve, dye/fragrance free laundry detergent. Has been avoiding topical irritants for years. Pt has had bowel incontinence for years. Saw. Dr. Fields in the past. Did pelvic floor PT/biofeedback in 2009. She has alternating constipation and diarrhea, and states that diarrhea can come on at any time. SHe does not identify any specific triggers. Takes Miralax and Citrucel daily. Last colonoscopy 2017 normal per pt. Urinary incontinence with urgency, +frequency. Leaks when walking into the bathroom. Sometimes leaks with stress maneuvers. Prior urogyn surgery with Dr. Hoff: Total vaginal hysterectomy, uterosacral vaginal vault suspension, anterior repair, Monarc sling, and cystoscopy. Vulvar biopsy 11/17/20: A. Skin, left labia majora, biopsy - Lichenoid interface dermatitis, see comment. ?AF/GKH/lbk 11/19/2020 CONVERTED DIAGNOSIS COMMENT Histologic sections demonstrate compact orthokeratosis overlying attenuated epidermis with a thickened granular layer. Within the dermis, there is a band-like infiltrate of lymphocytes, associated with vacuolar interface change and dyskeratosis. There is background melanoderma, occasional plasma cells, and a rare eosinophil. ?To rule out an infectious process, a PAS/F was performed at the [facility] and compared with appropriate controls. ?The stain is negative for fungal organisms. 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 In the appropriate clinical context, the findings would represent lichen planus or an evolving lichen sclerosis. Clinical correlation remains essential. Medical and Symptom History: VISUAL STYLIST HISTORY: Last Pap: Date:N/A; Last Mammogram: Her last mammogram was 07/21/21. She has a previous history of an abnormal mammogram. LMP: No LMP recorded. Patient has had a hysterectomy.; Menopause post: Menstrual history: NA; Deliveries: History of third or fourth degree laceration: No Weight of largest baby: 6 lbs 10oz Sexual function Sexually active: Not sexually active PFDI-20 Do you: Usually experience pressure in the lower abdomen? No (0) Usually experience heaviness or dullness in the pelvic area? No (0) Usually have a bulge or something falling out that you can see or feel in your vaginal area? No (0) Ever have to push on the vagina or around the rectum to have or complete a bowel movement? No (0) Usually experience a feeling of incomplete bladder emptying? No (0) Ever have to push up on a bulge in the vaginal area with your fingers to start or complete urination? No (0) Feel you need to strain too hard to have a bowel movement? Yes, moderately bothersome (3) Feel you have not completely emptied your bowels at the end of a bowel movement? No (0) Usually lose stool beyond your control if your stool is well formed? Yes, quite a bit bothersome (4) Usually lose stool beyond your control if your stool is loose? Yes, quite a bit bothersome (4) Usually lose gas from the rectum beyond your control? Yes, quite a bit bothersome (4) Usually have pain when you pass your stool? No (0) Experience a strong sense of urgency and have to mina to the bathroom to have a bowel movement? Yes, quite a bit bothersome (4) Does part of your bowel ever pass through the rectum and bulge outside during or after a bowel movement? No (0) Usually experience frequent urination? Yes, moderately bothersome (3) Usually experience urine leakage associated with a feeling of urgency, that is, a strong sensation of needing to go to the bathroom? Yes, somewhat bothersome (2) Usually experience urine leakage related to coughing, sneezing or laughing? Yes, somewhat bothersome (2) Usually experience small amounts of urine leakage (that is, drops)? Yes, somewhat bothersome (2) Usually experience difficulty emp (more content not included)... Normal [facility] Urinalysis complete panel (U )on 08-25-2021 Bacteria LM.HPF (Urine sed) [#/Area] 4+ /HPF Abnormal None Seen [facility] Comment on above: Order Comment: Speci men Type: URINE SPECIMEN Ordering Facility: [facility] Address: [address] [place] [address] Performed By: #### 2 4356-8 #### [facility] CLIA [id number] [address] STATES OF [facility] Bilirubin Ql (U) Negative Normal Negative [facility] Comment on above: Order Comment: Speci men Type: URINE SPECIMEN Ordering Facility: [facility] Address: [address] [place] [address] Performed By: #### 2 4356-8 #### [facility] CLIA [id number] [address] [place] Clarity (Unsp spec) Turbid Abnormal Clear [facility] Comment on above: Order Comment: Speci men Type: URINE SPECIMEN Ordering Facility: [facility] Address: [address] [place] [address] Performed By: #### 2 4356-8 #### [facility] CLIA [id number] [address] Color (U) Yellow Normal Yellow [facility] Comment on above: Order Comment: Speci men Type: URINE SPECIMEN Ordering Facility: [facility] Address: [address] [place] [address] Performed By: #### 2 4356-8 #### [facility] CLIA [id number] [address] Epithelial cells LM.HPF (Urine sed) [#/Area] 0.6 /[HPF] Normal [facility] Comment on above: Order Comment: Speci men Type: URINE SPECIMEN Ordering Facility: [facility] Address: [address] [place] [address] Performed By: #### 2 4356-8 #### [facility] CLIA [id number] [address] Glucose Test strip (U) [Mass/Vol] Negative Normal Negative [facility] Comment on above: Order Comment: Speci men Type: URINE SPECIMEN Ordering Facility: [facility] Address: [address] [place] [address] Performed By: #### 2 4356-8 #### [facility] CLIA [id number] [address] Hemoglobin Ql (U) Moderate Abnormal Negative [facility] Comment on above: Order Comment: Speci men Type: URINE SPECIMEN Ordering Facility: [facility] Address: [address] [place] [address] Performed By: #### 2 4356-8 #### [facility] CLIA [id number] [address] OF [place] Hyaline casts (Urine sed) [#/Area] 1-3 /LPF Abnormal 0 /LPF [facility] Comment on above: Order Comment: Speci men Type: URINE SPECIMEN Ordering Facility: [facility] Address: [address] [place] [address] Performed By: #### 2 4356-8 #### [facility] CLIA [id number] [address] Ketones Ql (U) Negative Normal Negative [facility] Comment on above: Order Comment: Speci men Type: URINE SPECIMEN Ordering Facility: [facility] Address: [address] [place] [address] Performed By: #### 2 4356-8 #### [facility] CLIA [id number] [address] Leukocyte esterase Test strip Ql (U) Large Abnormal Negative [facility] Comment on above: Order Comment: Speci men Type: URINE SPECIMEN Ordering Facility: [facility] Address: [address] [place] [address] Performed By: #### 2 4356-8 #### [facility] CLIA [id number] [address] OF [facility] Nitrite Ql (U) Negative Normal Negative [facility] Comment on above: Order Comment: Speci men Type: URINE SPECIMEN Ordering Facility: [facility] Address: [address] [place] [address] Performed By: #### 2 4356-8 #### [facility] CLIA [id number] [address] OF [place] pH (U) 6.5 [pH] Normal 5.0-8.0 [facility] Comment on above: Order Comment: Speci men Type: URINE SPECIMEN Ordering Facility: [facility] Address: [address] [place] [address] Performed By: #### 2 4356-8 #### [facility] CLIA [id number] [address] OF [place] Protein (U) [Mass/Vol] Negative Normal Negative [facility] Comment on above: Order Comment: Speci men Type: URINE SPECIMEN Ordering Facility: [facility] Address: [address] [place] [address] Performed By: #### 2 4356-8 #### [facility] CLIA [id number] [address] RBC LM.HPF (Urine sed) [#/Area] 6-10 /HPF Abnormal 0-3 /HPF [facility] Comment on above: Order Comment: Speci men Type: URINE SPECIMEN Ordering Facility: [facility] Address: [address] [place] [address] Performed By: #### 2 4356-8 #### [facility] CLIA [id number] [address] Specific gravity (U) [Rel density] 1.011 Normal 1.005-1.030 [facility] Comment on above: Order Comment: Speci men Type: URINE SPECIMEN Ordering Facility: [facility] Address: [address] [place] [address] Performed By: #### 2 4356-8 #### [facility] CLIA [id number] [address] Urobilinogen Ql (U) 0.2 EU/dL Normal 0.2-1.0 EU/dL [facility] Comment on above: Order Comment: Speci men Type: URINE SPECIMEN Ordering Facility: [facility] Address: [address] [place] [address] Performed By: #### 2 4356-8 #### [facility] CLIA [id number] [address] WBC LM.HPF (Urine sed) [#/Area] /[HPF] Abnormal 0-5 /HPF [facility] Comment on above: Order Comment: Speci men Type: URINE SPECIMEN Ordering Facility: [facility] Address: [address] [place] [address] Performed By: #### 2 4356-8 #### [facility] CLIA [id number] [address] [place] [address] [place] Culture, urine Bacteria identified Cx Nom (U) Mixed Gram Pos & Gram Neg Org [facility] Work Phone: No Panel Information [facility] Vital Signs Date Time Vital Sign Value Performing Clinician Facility 10-11-2024 08:57-0400 Body mass index (BMI) [Ratio] 27.94 kg/m2 Lexis Abelino PA-C Work Phone: [facility] 10-11-2024 08:57-0400 Body weight 72.12 kg Lexis Abelino PA-C Work Phone: [facility] 10-11-2024 08:57-0400 Diastolic blood pressure 74 mm[Hg] Lexis Abelino PA-C Work Phone: [facility] 10-11-2024 08:57-0400 Heart rate 70 /min Lexis Abelino PA-C Work Phone: [facility] 10-11-2024 08:57-0400 SaO2% (BldA) [Mass fraction] 99 % Lexis Abelino PA-C Work Phone: [facility] 10-11-2024 08:57-0400 Systolic blood pressure 152 mm[Hg] Lexis Abelino PA-C Work Phone: [facility] 10-02-2024 09:01-0400 Diastolic blood pressure 66 mm[Hg] Byron Herman [employer] Work Phone: [facility] 10-02-2024 09:01-0400 Systolic blood pressure 122 mm[Hg] Byron Herman [employer] Work Phone: [facility] 10-02-2024 08:59-0400 Body mass index (BMI) [Ratio] 27.97 kg/m2 Byron Herman [employer] Work Phone: [facility] 10-02-2024 08:59-0400 Body weight 72.2 kg Byron Herman [employer] Work Phone: [facility] 10-02-2024 08:59-0400 Heart rate 80 /min Byron Herman [employer] Work Phone: [facility] 10-02-2024 08:59-0400 Respiratory rate 16 /min Byron Herman [employer] Work Phone: [facility] 09-20-2024 09:26-0400 Body mass index (BMI) [Ratio] 28.12 kg/m2 Lexis Abelino PA-C Work Phone: [facility] 09-20-2024 09:26-0400 Body weight 72.58 kg Lexis Abelino PA-C Work Phone: [facility] 09-20-2024 09:26-0400 Diastolic blood pressure 92 mm[Hg] Lexis Abelino PA-C Work Phone: [facility] 09-20-2024 09:26-0400 Heart rate 71 /min Lexis Abelino PA-C Work Phone: [facility] 09-20-2024 09:26-0400 SaO2% (BldA) [Mass fraction] 95 % Lexis Abelino PA-C Work Phone: [facility] 09-20-2024 09:26-0400 Systolic blood pressure 174 mm[Hg] Lexis Abelino PA-C Work Phone: [facility] 07-20-2024 10:19-0500 Body mass index (BMI) [Ratio] 27.66 kg/m2 Preston Haney MD Work Phone: [facility] 07-20-2024 10:19-0500 Body temperature 97.2 [degF] Preston Haney MD Work Phone: [facility] 07-20-2024 10:19-0500 Body weight 71.4 kg Preston Haney MD Work Phone: [facility] 07-20-2024 10:19-0500 Diastolic blood pressure 82 mm[Hg] Preston Haney MD Work Phone: [facility] 07-20-2024 10:19-0500 Heart rate 77 /min Preston Haney MD Work Phone: [facility] 07-20-2024 10:19-0500 Respiratory rate 16 /min Preston Haney MD Work Phone: [facility] 07-20-2024 10:19-0500 SaO2% (BldA) [Mass fraction] 96 % Preston Haney MD Work Phone: [facility] 07-20-2024 10:19-0500 Systolic blood pressure 152 mm[Hg] Preston Haney MD Work Phone: [facility] 04-24-2024 10:22-0400 Diastolic blood pressure 70 mm[Hg] Byron Herman [employer] Work Phone: [facility] 04-24-2024 10:22-0400 Systolic blood pressure 130 mm[Hg] Byron Herman [employer] Work Phone: [facility] 04-24-2024 10:20-0400 Body height 160.7 cm Byron Herman [employer] Work Phone: [facility] 04-24-2024 10:20-0400 Body mass index (BMI) [Ratio] 27.35 kg/m2 Byron Herman [employer] Work Phone: [facility] 04-24-2024 10:20-0400 Body weight 70.6 kg Byron Herman [employer] Work Phone: [facility] 04-24-2024 10:20-0400 Heart rate 68 /min Byron Herman [employer] Work Phone: [facility] 04-24-2024 10:20-0400 Respiratory rate 16 /min Byron Herman [employer] Work Phone: [facility] 01-20-2024 09:54-0400 Body mass index (BMI) [Ratio] 27.72 kg/m2 Byron Herman [employer] Work Phone: [facility] 01-20-2024 09:54-0400 Body weight 72.12 kg Byron Herman [employer] Work Phone: [facility] 01-20-2024 09:54-0400 Diastolic blood pressure 70 mm[Hg] Byron Herman [employer] Work Phone: [facility] 01-20-2024 09:54-0400 Heart rate 67 /min Byron Herman [employer] Work Phone: [facility] 01-20-2024 09:54-0400 Respiratory rate 16 /min Byron Herman [employer] Work Phone: [facility] 01-20-2024 09:54-0400 SaO2% (BldA) [Mass fraction] 98 % Byron Herman [employer] Work Phone: [facility] 01-20-2024 09:54-0400 Systolic blood pressure 144 mm[Hg] Byron Herman [employer]ERK Work Phone: [facility] 07-20-2023 10:24-0500 Body temperature 97.39 [degF] Preston Haney MD Work Phone: [facility] 07-20-2023 10:24-0500 Body weight 71.67 kg Preston Haney MD Work Phone: [facility] 07-20-2023 10:24-0500 Diastolic blood pressure 66 mm[Hg] Preston Haney MD Work Phone: [facility] 07-20-2023 10:24-0500 Heart rate 72 /min Preston Haney MD Work Phone: [facility] 07-20-2023 10:24-0500 Respiratory rate 18 /min Preston Haney MD Work Phone: [facility] 07-20-2023 10:24-0500 SaO2% (BldA) [Mass fraction] 96 % Preston Haney MD Work Phone: [facility] 07-20-2023 10:24-0500 Systolic blood pressure 132 mm[Hg] Preston Haney MD Work Phone: [facility] 09-14-2022 09:34-0500 Body temperature 97.2 [degF] Miah Mart MD Work Phone: [facility] 09-14-2022 09:34-0500 Body weight 73.85 kg Miah Mart MD Work Phone: [facility] 09-14-2022 09:34-0500 Diastolic blood pressure 84 mm[Hg] Miah Mart MD Work Phone: [facility] 09-14-2022 09:34-0500 Heart rate 80 /min Miah Mart MD Work Phone: [facility] 09-14-2022 09:34-0500 Systolic blood pressure 128 mm[Hg] Miah Mart MD Work Phone: [facility] 08-19-2022 10:27-0500 Body height 160.[address] Preston Haney Work Phone: [facility] 08-19-2022 10:27-0500 Body mass index (BMI) [Ratio] 28.8 kg/m2 Dr. Preston Haney Work Phone: [facility] 08-19-2022 10:27-0500 Body weight 73.[address] Preston Haney Work Phone: [facility] 08-19-2022 10:27-0500 Diastolic blood pressure 78 mm[Hg] Dr. Preston Haney Work Phone: [facility] 08-19-2022 10:27-0500 Heart rate 73 /min Dr. Preston Haney Work Phone: [facility] 08-19-2022 10:27-0500 Systolic blood pressure 139 mm[Hg] Dr. Preston Haney Work Phone: [facility] 08-17-2022 08:26-0500 Body height 161.3 cm Miah Mart MD Work Phone: [facility] 02-07-2023 08:26-0500 Body temperature 97.59 [degF] Miah Mart MD Work Phone: [facility] 08-17-2022 08:26-0500 Body weight 73.21 kg Miah Mart MD Work Phone: [facility] 08-17-2022 08:26-0500 Diastolic blood pressure 78 mm[Hg] Miah Mart MD Work Phone: [facility] 08-17-2022 08:26-0500 Heart rate 78 /min Miah Mart MD Work Phone: [facility] 08-17-2022 08:26-0500 Respiratory rate 100 /min Miah Mart MD Work Phone: [facility] 08-17-2022 08:26-0500 Systolic blood pressure 158 mm[Hg] Miah Mart MD Work Phone: [facility] 06-08-2022 10:01-0500 Body weight 73.03 kg Elisabeth Hoff RADARMAN.H[employer]ISTIC NUTRITIONIST Work Phone: [facility] 06-08-2022 10:01-0500 Diastolic blood pressure 60 mm[Hg] Elisabeth Hoff RADARMAN.HOLISTIC NUTRITIONIST Work Phone: [facility] 06-08-2022 10:01-0500 Heart rate 72 /min Elisabeth Hoff RADARMAN.HOLISTIC NUTRITIONIST Work Phone: [facility] 06-08-2022 10:01-0500 Respiratory rate 16 /min Elisabeth Hoff RADARMAN.HOLISTIC NUTRITIONIST Work Phone: [facility] 06-08-2022 10:01-0500 Systolic blood pressure 132 mm[Hg] Elisabeth Hoff RADARMAN.HOLISTIC NUTRITIONIST Work Phone: [facility] 05-28-2022 09:57-0500 Body mass index (BMI) [Ratio] 28.8 kg/m2 Dr. Preston Haney Work Phone: [facility] 05-28-2022 09:57-0500 Body weight 73.[address] Preston Haney Work Phone: [facility] 05-28-2022 09:57-0500 Diastolic blood pressure 84 mm[Hg] Dr. Preston Haney Work Phone: [facility] 05-28-2022 09:57-0500 Heart rate 69 /min Dr. Preston Haney Work Phone: [facility] 05-28-2022 09:57-0500 SaO2% (BldA) [Mass fraction] 97 % Dr. Preston Haney Work Phone: [facility] 05-28-2022 09:57-0500 Systolic blood pressure 168 mm[Hg] Dr. Preston Haney Work Phone: [facility] 12-01-2021 10:30-0400 Diastolic blood pressure 70 mm[Hg] Preston Haney MD Work Phone: [facility] 12-01-2021 10:30-0400 Systolic blood pressure 140 mm[Hg] Preston Haney MD Work Phone: [facility] 12-01-2021 09:26-0400 Body weight 73.03 kg Preston Haney MD Work Phone: [facility] 12-01-2021 09:26-0400 Heart rate 62 /min Preston Haney MD Work Phone: [facility] Encounters Encounter Date Encounter Type Care Provider Facility Start: 01-03-2025 ambulatory Hubert Pereira Facility:[facility] Start: 11-26-2024 End: 11-26-2024 Patient encounter procedure Elia Olivares OD Work Phone: Ophthalmology Comment on above: High risk medication use (Primary Dx); Dry eye syndrome of bilateral lacrimal glands; Pseudophakia of both eyes; Posterior vitreous detachment of both eyes; Prediabetes Start: 11-26-2024 End: 11-26-2024 ambulatory ELIA OLIVARES Facility:[facility] Start: 11-19-2024 End: 11-19-2024 Patient encounter procedure Jv Brooks MD Work Phone: Orthopaedics Comment on above: Arthritis of finger (Primary Dx); Pain of right hand; Swelling of right middle finger; Inflammatory arthritis Start: 11-19-2024 End: 11-19-2024 ambulatory JV BROOKS Facility:[facility] Start: 11-14-2024 End: 11-14-2024 ambulatory [place] Citytari Pereira Facility:[facility] Start: 10-17-2024 End: 10-19-2024 Follow-up encounter Byron Sutton APRN.CNP Work Phone: [facility] [place] Start: 10-16-2024 End: 10-16-2024 ambulatory BYRON SUTTON Facility:[facility] Start: 10-11-2024 End: 10-11-2024 ambulatory LEXIS ROCA Facility:[facility] Start: 10-11-2024 End: 10-11-2024 Patient encounter procedure Lexis Jensenser PA-C Work Phone: Rheumatology Comment on above: Pain of right hand ( Primary Dx); Long-term use of Plaquenil; Swelling of right middle finger Start: 10-09-2024 End: 10-10-2024 Telephone encounter Lexis Roca PA-C Work Phone: [address] [place] [address] Start: 10-05-2024 End: 12-05-2024 Follow-up encounter Elisabeth Hoff APRN.CNS Work Phone: Internal Medicine [place] Start: 10-03-2024 End: 10-03-2024 E-mail encounter from caregiver Lexis Roca PA-C Work Phone: Rheumatology Start: 10-03-2024 End: 10-03-2024 Patient encounter procedure Lexis Jensenser PA-C Work Phone: Rheumatology Comment on above: Upcoming Rheumatolog y Appointment Start: 10-02-2024 End: 10-02-2024 ambulatory BYRON SUTTON Facility:[facility] Start: 10-02-2024 End: 10-02-2024 Patient encounter procedure Byron Sutton APRN.CNP Work Phone: Internal Medicine [place] Comment on above: Primary hypertension (Primary Dx); WALTERS (dyspnea on exertion); Asymmetric hypertrophy of ventricular septum; Heart murmur; Elevated uric acid in blood Start: 09-24-2024 End: 09-24-2024 Follow-up encounter Lexis Jensenser PA-C Work Phone: Rheumatology Start: 09-21-2024 End: 09-21-2024 Follow-up encounter Lexis Jensenser PA-C Work Phone: Rheumatology Comment on above: Bilateral hand pain (Primary Dx) Start: 09-20-2024 End: 09-20-2024 Telephone encounter Elisabeth Luis Eduardo PATEL Work Phone: Internal Medicine [place] Comment on above: Appointment Start: 09-20-2024 End: 09-20-2024 ambulatory LEXIS ABELINO Facility:[facility] Start: 09-20-2024 End: 09-20-2024 Subsequent hospital visit by physician Juma Counts Include [address] [facility] [place] Gutierrez Work Phone: Radiology Comment on above: Bilateral hand pain [M79.641, M79.642] Start: 09-20-2024 End: 09-20-2024 ambulatory LEXIS ABELINO Facility:[facility] Start: 09-20-2024 End: 09-20-2024 Patient encounter procedure Lexis Jensenser PA-C Work Phone: Rheumatology Comment on above: Bilateral hand pain (Primary Dx); Primary osteoarthritis involving multiple joints; Raynaud's disease without gangrene; History of gastric ulcer Start: 09-12-2024 End: 09-12-2024 E-mail encounter from caregiver Lexis Jensenser PA-C Work Phone: Rheumatology Start: 09-12-2024 End: 09-12-2024 Patient encounter procedure Lexis Abelino PA-C Work Phone: Rheumatology Comment on above: [facility]ology Appointment Start: 09-12-2024 End: 09-12-2024 Telephone encounter Lexis Abelino PA-C Work Phone: Rheumatology Comment on above: Received Outside [facility] Records ([facility] notes and labs) Start: 08-21-2024 End: 08-21-2024 ambulatory PRESTON HANEY Facility:[facility] Start: 08-21-2024 End: 08-21-2024 Subsequent hospital visit by physician Screen Mammo Counts Include [address] Mammogram Comment on above: Breast cancer screen ing by mammogram [Z12.31] Start: 08-20-2024 End: 08-20-2024 E-mail encounter from caregiver Lexis Roca RAIL EXPRESS CLERK Work Phone: Rheumatology Start: 08-20-2024 End: 08-20-2024 Patient encounter procedure Lexis Abelino FARRELLRAIL EXPRESS CLERK Work Phone: Rheumatology Comment on above: Rheumatology Appoint ment Start: 08-16-2024 End: 08-20-2024 Telephone encounter Lexis Roca APRN.RAIL EXPRESS CLERK Work Phone: Rheumatology Comment on above: Request Outside [facility] Records Start: 08-06-2024 End: 08-13-2024 Telephone encounter Preston Haney MD Work Phone: Family Medicine [place] Comment on above: Insurance Authorizat ion Start: 07-27-2024 End: 07-27-2024 ambulatory Gavino Friend Facility:[facility] Start: 07-25-2024 End: 07-25-2024 Refill Preston Haney MD Work Phone: Internal Medicine [place] Comment on above: Refill Request Start: 07-20-2024 End: 07-20-2024 Telephone encounter Preston Haney MD Work Phone: Family Medicine [place] Start: 07-20-2024 End: 07-20-2024 Office outpatient visit 40 minutes Preston Haney MD Work Phone: Internal Medicine [place] Comment on above: Primary hypertension (Primary Dx); Primary osteoarthritis involving multiple joints; Irritable bowel syndrome with both constipation and diarrhea; Mixed hyperlipidemia; IFG (impaired fasting glucose); Hyponatremia; Hypokalemia; Breast cancer screening by mammogram; Vitamin D deficiency; Cervicalgia; Encounter for immunization Start: 07-20-2024 End: 07-20-2024 ambulatory PRESTON D TALAMPAS Facility:[facility] Start: 07-12-2024 End: 07-12-2024 ambulatory BYRON HERMAN Facility:[facility] Start: 05-30-2024 End: 05-30-2024 ambulatory Gavino Jay Facility:[facility] Start: 05-25-2024 End: 05-25-[address] [facility] Start: 04-24-2024 End: 04-24-2024 ambulatory BYRON TATER Facility:[facility] Start: 04-24-2024 End: 04-24-2024 Patient encounter procedure Byron Herman RADARMAN.RAIL EXPRESS CLERK Work Phone: Internal Medicine [place] Comment on above: Medicare annual well ness visit, subsequent (Primary Dx); Primary hypertension; Primary osteoarthritis involving multiple joints Start: 04-20-2024 End: 04-20-2024 ambulatory Adelinaher Marques Facility:[facility] Start: 03-27-2024 End: 03-27-[address] [facility] Start: 02-17-2024 End: 02-17-2024 ambulatory [facility] Facility:[facility] Start: 02-15-2024 ambulatory Mahesh aguila [facility] [place] Start: 02-15-2024 Patient encounter procedure Da janine Bello [facility] [place] Comment on above: Population Health Na v[facility] Outreach [facility] Start: 01-23-2024 End: 01-23-2024 ambulatory Gavino Jay Facility:[facility] Start: 01-20-2024 End: 01-20-2024 ambulatory BYRON TATER Facility:[facility] Start: 01-20-2024 End: 01-20-2024 Patient encounter procedure Byron Herman RADARMAN.RAIL EXPRESS CLERK Work Phone: Internal Medicine [place] Comment on above: Primary hypertension (Primary Dx); Mixed hyperlipidemia; Prediabetes; Varicose veins of right lower extremity with pain; Chronic constipation; Irritable bowel syndrome with both constipation and diarrhea; Encounter for therapeutic drug level monitoring; Vitamin D deficiency Start: 01-13-2024 End: 01-13-2024 ambulatory PRESTON D TALAMPAS Facility:[facility] Start: 12-20-2023 Telephone encounter Preston lee MD Work Phone: Family Medicine [place] Comment on above: Orders Start: 08-22-2023 Documentation procedure Mammog jesenia Coordinator [facility] Start: 08-22-2023 Letter encounter Mammography Coordinator [facility] Department Start: 08-19-2023 End: 08-19-2023 Subsequent hospital visit by physician Screen Mammo Counts Include [address] [facility] At [facility] Mammogram Comment on above: Breast cancer screen ing by mammogram [Z12.31] Start: 07-20-2023 End: 07-20-2023 Office outpatient visit 25 minutes Preston Haney MD Work Phone: Internal Medicine [place] Comment on above: Primary hypertension (Primary Dx); Mixed hyperlipidemia; IFG (impaired fasting glucose); Chronic constipation; Vitamin D deficiency; Redness and swelling of lower leg; Encounter for immunization; Need for shingles vaccine; Breast cancer screening by mammogram Start: 03-29-2023 End: 03-29-2023 Subsequent hospital visit by physician Diagnostic Mammo Counts Include [address] Mammogram Comment on above: Microcalcifications of the breast [R92.0] Start: 12-21-2022 Telephone encounter Miah pastrana MD Work Phone: General Surgery Comment on above: Appointment; Orders Start: 09-14-2022 End: 09-14-2022 Patient encounter procedure Miah Mart MD Work Phone: General Surgery Comment on above: Microcalcifications of the breast (Primary Dx) Start: 08-30-2022 End: 08-30-[address] Preston Haney Work Phone: [facility] Work Phone: Start: 08-30-2022 End: 08-30-[address] Preston Haney Work Phone: [facility]-Breast Imaging - Biopsy/Stero Start: 08-19-2022 End: 08-19-[address] Preston Haney Work Phone: [facility] Start: 08-17-2022 End: 08-17-2022 Patient encounter procedure Miah Mart MD Work Phone: General Surgery Comment on above: Microcalcifications of the breast (Primary Dx) Start: 07-14-2022 Refill Preston ellison MD Work Phone: Internal Medicine [place] Comment on above: Refill Request (Inco mplete) Refill Request Start: 07-13-2022 Telephone encounter Daniel Griffin MD Work Phone: Mammography Comment on above: Mammogram Result Ignacio l Back Start: 07-09-2022 End: 07-09-2022 Subsequent hospital visit by physician Screen Mammo Counts Include [facility] Mammogram Comment on above: Encounter for screen ing mammogram for malignant neoplasm of breast [Z12.31] Start: 06-18-2022 Telephone encounter Preston lee MD Work Phone: Internal Medicine [place] Comment on above: fax information to [facility] office Start: 06-11-2022 Telephone encounter Blanca fernandez MD Work Phone: URO/Gynecology Comment on above: Results Start: 06-08-2022 End: 06-08-2022 Office outpatient visit 25 minutes Elisabeth Hoff APRN.CNS Work Phone: Internal Medicine [place] Comment on above: Primary hypertension (Primary Dx); Need for shingles vaccine; Encounter for immunization; Mixed hyperlipidemia; Irritable bowel syndrome with both constipation and diarrhea; IFG (impaired fasting glucose) Start: 05-28-2022 End: 05-28-[address] Preston Haney Work Phone: [facility] Start: 03-05-2022 End: 03-05-[address] Preston Haney Work Phone: [facility] Start: 03-04-2022 End: 03-04-[address] Preston Haney Work Phone: [facility] Work Phone: Start: 03-04-2022 End: 03-04-[address] Preston Haney Work Phone: [facility]-Laboratory, Specimen Start: 02-16-2022 Telephone encounter Laura L Fo x RADARMAN.RAIL EXPRESS CLERK Work Phone: Urogynecology Comment on above: Results Start: 01-24-2022 Telephone encounter Ailin Naranjo MD Work Phone: URO/Gynecology Comment on above: Results Start: 01-20-2022 Telephone encounter Laura L Fo x RADARMAN.RAIL EXPRESS CLERK Work Phone: Urology Comment on above: Results Start: 01-08-2022 End: 01-08-2022 Subsequent hospital visit by physician [facility] ([facility]) Work Phone: Cat Scan Comment on above: Recurrent UTI [N39.0 ] Start: 12-23-2021 End: 12-23-[address] Preston Haney Work Phone: [facility] Start: 12-21-2021 End: 12-21-[address] Preston Haney Work Phone: [facility] Start: 12-18-2021 Telephone encounter Laura L Fo x RADARMAN.RAIL EXPRESS CLERK Work Phone: URO/Gynecology Comment on above: Results Start: 12-15-2021 End: 12-15-2021 ambulatory BLANCA MUNOZ Facility[facility] Start: 12-11-2021 End: 12-11-[address] Preston Haney Work Phone: [facility] Start: 12-01-2021 Telephone encounter Blanca fernandez MD Work Phone: [facility] Comment on above: Results Start: 12-01-2021 End: 12-01-2021 Office outpatient visit 40 minutes Preston Haney MD Work Phone: Internal Medicine [place] Comment on above: Essential hypertensi on (Primary Dx); IFG (impaired fasting glucose); Mixed hyperlipidemia; Vitamin D deficiency; Recurrent UTI; Irritable bowel syndrome with both constipation and diarrhea; Acute UTI Start: 11-28-2021 Telephone encounter Ailin Naranjo MD Work Phone: URO/Gynecology Comment on above: Results Start: 10-08-2021 End: 10-08-2021 Patient encounter procedure Carlos Noble MD Work Phone: Ophthalmology Comment on above: Pseudophakia (Primar y Dx); Subjective vision disturbance, bilateral; Dry eye syndrome of bilateral lacrimal glands; Regular astigmatism of both eyes Start: 09-08-2021 End: 09-08-2021 ambulatory BLANCA MUNOZ Facility:[facility] Start: 08-25-2021 End: 08-25-2021 ambulatory BLANCA MUNOZ Facility:[facility] Start: 07-15-2021 ambulatory Preston ellison MD Work Phone: Internal Medicine [place] Comment on above: Fall Start: 05-29-2014 End: 02-07-2023 Patient encounter procedure Carlos Noble MD Work Phone: [facility] Procedures Date Procedure Procedure Detail Performing Clinician Start: 11-26-2024 End: 11-26-2024 Computerized ophthalmic imaging retina Elia Olivares OD Work Phone: Start: 08-21-2024 Screening digital br east tomosynthesis bi Preston Haney MD Work Phone: Start: 01-20-2024 Adult depression scr eening assessment Mahesh Bello MA Start: 03-29-2023 Diagnostic mammograp hy computer-aided detcj uni Miah Mart MD Work Phone: Start: 08-30-[address] Leonor Haney Work Phone: Start: 07-09-2022 CESAR SCREENING W RIVAS Monterroso MD Work Phone: Start: 01-08-2022 Ct abdomen & pelvis w/o contrast material Blanca Munoz MD Work Phone: Start: 12-23-2021 Diagnostic radiograp hy of abdomen Dr. Preston Haney Work Phone: Start: 12-21-[address]21 Diagnostic radiograp hy of abdomen Dr. Preston Haney Work Phone: Start: 12-01-2021 Adult depression scr eening assessment Blanca Munoz MD Work Phone: Start: 10-08-2021 End: 10-08-2021 Computerized ophthalmic imaging retina Carlos Noble MD Work Phone: Start: 10-08-2021 Computerized corneal topography uni/bi Carlos Real MEEKS Work Phone: Start: 10-18-2020 Adult depression scr eening assessment Carlos Noble MD Work Phone: Urine culture Dr. Preston love Work Phone: Plan of Treatment Date Care Activity Detail Author Start: 08-24-2028 Urine microalbumin profile [facility] Start: 09-21-2027 Diabetes Screening Diabetes Screening [facility] Start: 07-12-2027 Diabetes Screening Diabetes Screening [facility] Start: 01-12-2027 Diabetes Screening Diabetes Screening [facility] Start: 07-13-2026 Diabetes Screening Diabetes Screening [facility] Start: 01-31-2026 Diabetes Screening Diabetes Screening [facility] Start: 07-20-2025 Covid-19 Vaccine () Covid-19 Vaccine () [facility] Comment on above: Postponed from 03/11/2024 (Declined at t his time) Start: 06-08-2025 DIABETES SCREEN DIABETES SCREEN [facility] Start: 01-19-2025 Anxiety Screening Anxiety Screening [facility] Start: 01-19-2025 Depression Screening Depression Screening [facility] Start: 01-18-2025 End: 01-18-2025 Patient encounter procedure Internal Medicine [place] Comment on above: 6 month follow up Start: 01-16-2025 End: 01-16-2025 Patient encounter procedure 01/16/2025 10:30 AM EDT Office Visit Rheumatology [address] [place] [address] Lexis Roca PA-C [address] [place] [address] 3 month follow up Rheumatology Comment on above: 3 month follow up Start: 12-18-2024 End: 03-19-2025 25-hydroxyvitamin D3 [Mass/volume] in Serum or Plasma VITAMIN D 25 HYDROXY Lab Routine Vitamin D deficiency Expected: 12/18/2024 (Approximate), Expires: 03/19/2025 [facility] Comment on above: Expected: 12/18/2024 (Approximate), Expi res: 03/19/2025 Start: 12-18-2024 End: 03-19-2025 CBC panel - Blood by Automated count COMPLETE BLOOD COUNT Lab Routine Primary hypertension Expected: 12/18/2024 (Approximate), Expires: 03/19/2025 [facility] Comment on above: Expected: 12/18/2024 (Approximate), Expi res: 03/19/2025 Start: 12-18-2024 End: 03-19-2025 Comprehensive metabolic 2000 panel - Serum or Plasma COMPREHENSIVE METABOLIC PANEL Lab Routine Primary hypertension IFG (impaired fasting glucose) Hyponatremia Hypokalemia Vitamin D deficiency Expected: 12/18/2024 (Approximate), Expires: 03/19/2025 [facility] Comment on above: Expected: 12/18/2024 (Approximate), Expi res: 03/19/2025 Start: 12-18-2024 End: 03-19-2025 Hemoglobin A1c in Blood HEMOGLOBIN A1C Lab Routine IFG (impaired fasting glucose) Expected: 12/18/2024 (Approximate), Expires: 03/19/2025 [facility] Comment on above: Expected: 12/18/2024 (Approximate), Expi res: 03/19/2025 Start: 12-18-2024 End: 03-19-2025 Lipid 1996 panel - Serum or Plasma LIPID PANEL BASIC Lab Routine Mixed hyperlipidemia Expected: 12/18/2024 (Approximate), Expires: 03/19/2025 [facility] Comment on above: Expected: 12/18/2024 (Approximate), Expi res: 03/19/2025 Start: 12-18-2024 End: 12-18-2024 ambulatory 12/18/2024 7:30 AM EDT Results Only Lisbeth Lanier [facility] [address] [place] [address] Lisbeth Lanier [facility] Start: 11-26-2024 DIABETES SCREEN DIABETES SCREEN [facility] Start: 11-26-2024 End: 11-26-2024 Patient encounter procedure 11/26/2024 8:15 AM EDT Office Visit [facility] Ophthalmology [address] [place] [address] Elia Olivares, OD [address] [place] [address] Pain of right hand [M79.641] Ophthalmology Comment on above: Pain of right hand [M79.641] Start: 11-19-2024 End: 11-19-2024 Patient encounter procedure 11/19/2024 1:30 PM EDT Office Visit Orthopaedics [address] [place] [address] Jv Brooks MD [address] [place] [address] R hand possible gout Orthopaedics Comment on above: R hand possible gout Start: 10-16-2024 End: 10-16-2024 Patient encounter procedure 10/16/2024 11:20 AM EDT Office Visit Cardiology [address] [place] [address] x: Primary hypertension [I10]; WALTERS (dyspnea on exertion) [R06.09]; Atrial septal hypertrophy [I51.7] Cardiology Comment on above: x: Primary hypertension [I10]; WALTERS (dysp tyron on exertion) [R06.09]; Atrial septal hypertrophy [I51.7] Start: 10-11-2024 End: 10-11-2024 Patient encounter procedure 10/11/2024 9:00 AM EDT Office Visit Rheumatology [address] [place] [address] Lexis Roca PA-C [address] [place] [address] 2 week follow up Rheumatology Comment on above: 2 week follow up Start: 10-09-2024 Shingrix Vaccine (3 of 3) Shingrix Vaccine (3 of 3) [facility] Start: 10-09-2024 End: 10-09-2024 Patient encounter procedure 10/09/2024 1:20 PM EDT Appointment Cat Scan [address] [place] [address] Request: CT HAND WO IVCON RIGHT Cat Scan Comment on above: Request: CT HAND WO IVCON RIGHT Start: 10-02-2024 End: 10-02-2024 Patient encounter procedure 10/02/2024 9:00 AM EDT Office Visit Internal Medicine [place] [address] [place] [address] Byron Sutton APRN.RAIL EXPRESS CLERK [address] [place] [address] blood pressure Internal Medicine [place] Comment on above: blood pressure Start: 09-20-2024 End: 12-20-2024 C reactive protein [Mass/volume] in Serum or Plasma [facility] Comment on above: Expected: 09/20/2024, Expires: Start: 09-20-2024 End: 12-20-2024 Cyclic citrullinated peptide IgG Ab [Units/volume] in Serum or Plasma [facility] Comment on above: Expected: 09/20/2024, Expires: Start: 09-20-2024 End: 12-20-2024 Erythrocyte sedimentation rate [facility] Comment on above: Expected: 09/20/2024, Expires: Start: 09-20-2024 End: 12-20-2024 Extractable nuclear Ab panel - Serum [facility] Work Phone: Comment on above: Expected: 09/20/2024, Expires: Start: 09-20-2024 End: 06-12-2025 Rheumatoid factor [Units/volume] in Serum or Plasma [facility] Comment on above: Expected: 09/20/2024, Expires: Start: 09-20-2024 End: 09-20-2024 Patient encounter procedure 09/20/2024 9:30 AM EDT Office Visit Rheumatology [address] [place] [address] Lexis Roca PA-C [address] [place] [address] 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] Rheumatology Comment on above: Primary osteoarthritis involving multipl e joints [M15.0] Start: 08-23-2024 End: 08-23-2024 Patient encounter procedure Rheumatology Comment on above: Primary osteoarthritis involving multipl e joints [M15.0] Start: 08-21-2024 End: 08-21-2024 Patient encounter procedure 08/21/2024 9:10 AM EST Appointment Mammogram [address] [place] [address] Breast cancer screening by mammogram [Z12.31] Mammogram Comment on above: Breast cancer screening by mammogram [Z1 2.31] Start: 07-20-2024 Covid-19 Vaccine ( season) Covid-19 Vaccine ( season) [facility] Comment on above: Postponed from 03/11/2023 (Declined at t his time) Start: 07-20-2024 End: 07-20-2024 Patient encounter procedure 07/20/2024 9:40 AM EST Office Visit Internal Medicine [place] [address] [place] [address] Preston Haney MD [address] [place] [address] 6 month follow up Internal Medicine [place] Comment on above: 6 month follow up Start: 07-16-2024 End: 10-15-2024 25-hydroxyvitamin D3 [Mass/volume] in Serum or Plasma VITAMIN D 25 HYDROXY Lab Routine Vitamin D deficiency Expected: 07/16/2024, Expires: 10/15/2024 [facility] Comment on above: Expected: 07/16/2024, Expires: Start: 07-16-2024 End: 10-15-2024 CBC W Auto Differential panel - Blood COMPLETE BLOOD COUNT AND DIFFERENTIAL Lab Routine Encounter for therapeutic drug level monitoring Expected: 07/16/2024, Expires: 10/15/2024 [facility] Work Phone: Comment on above: Expected: 07/16/2024, Expires: Start: 07-16-2024 End: 10-15-2024 Comprehensive metabolic 2000 panel - Serum or Plasma COMPREHENSIVE METABOLIC PANEL Lab Routine Encounter for therapeutic drug level monitoring Expected: 07/16/2024, Expires: 10/15/2024 [facility] Comment on above: Expected: 07/16/2024, Expires: Start: 07-16-2024 End: 10-15-2024 Hemoglobin A1c in Blood HEMOGLOBIN A1C Lab Routine Prediabetes Expected: 07/16/2024, Expires: 10/15/2024 [facility] Comment on above: Expected: 07/16/2024, Expires: Start: 07-16-2024 End: 10-15-2024 Lipid 1996 panel - Serum or Plasma LIPID PANEL BASIC Lab Routine Mixed hyperlipidemia Expected: 07/16/2024, Expires: 10/15/2024 [facility] Comment on above: Expected: 07/16/2024, Expires: Start: 05-02-2024 DIABETES SCREEN DIABETES SCREEN [facility] Start: 04-24-2024 End: 04-24-2024 Patient encounter procedure [facility] Comment on above: 3 month follow up Annual Wellness - 3 month follow up Start: 03-11-2024 Covid-19 Vaccine ( season) Covid-19 Vaccine () [facility] Start: 03-11-2024 Influenza vaccination [facility] Start: 01-20-2024 End: 01-20-2024 Patient encounter procedure 01/20/2024 10:00 AM EDT Office Visit [facility] [address] [place] [address] Byron Sutton APRN.RAIL EXPRESS CLERK [address] [place] [address] 6 Month follow up [facility] [place] Comment on above: 6 Month follow up Start: 01-18-2024 End: 04-18-2024 25-hydroxyvitamin D3 [Mass/volume] in Serum or Plasma VITAMIN D 25 HYDROXY Lab Routine Vitamin D deficiency Expected: 01/18/2024 (Approximate), Expires: 04/18/2024 [facility] Work Phone: Comment on above: Expected: 01/18/2024 (Approximate), Expi res: 04/18/2024 Start: 01-18-2024 End: 04-18-2024 CBC panel - Blood by Automated count CBC Lab Routine Primary hypertension Expected: 01/18/2024 (Approximate), Expires: 04/18/2024 [facility] Work Phone: Comment on above: Expected: 01/18/2024 (Approximate), Expi res: 04/18/2024 Start: 01-18-2024 End: 04-18-2024 Comprehensive metabolic 2000 panel - Serum or Plasma COMP METABOLIC PANEL Lab Routine Primary hypertension IFG (impaired fasting glucose) Expected: 01/18/2024 (Approximate), Expires: 04/18/2024 [facility] Work Phone: Comment on above: Expected: 01/18/2024 (Approximate), Expi res: 04/18/2024 Start: 01-18-2024 End: 04-18-2024 Hemoglobin A1c in Blood HGB A1C Lab Routine IFG (impaired fasting glucose) Expected: 01/18/2024 (Approximate), Expires: 04/18/2024 [facility] Work Phone: Comment on above: Expected: 01/18/2024 (Approximate), Expi res: 04/18/2024 Start: 01-18-2024 End: 04-18-2024 Lipid 1996 panel - Serum or Plasma LIPID PANEL BASIC Lab Routine Mixed hyperlipidemia Expected: 01/18/2024 (Approximate), Expires: 04/18/2024 [facility] Work Phone: Comment on above: Expected: 01/18/2024 (Approximate), Expi res: 04/18/2024 Start: 07-11-2023 Advance Directive Discussion Advance Directive Discussion [facility] Start: 07-11-2023 Behavioral Health Screening Behavioral Health Screening [facility] Start: 06-08-2023 BP CONTROLLED (<130/80) BP CONTROLLED (<130/80) [facility] Start: 03-11-2023 Covid-19 Vaccine () Covid-19 Vaccine () [facility] Start: 03-11-2023 Influenza vaccination Influenza Vaccine (#1) [facility] Start: 12-15-2022 BP CONTROLLED (<130/80) BP CONTROLLED (<130/80) [facility] Start: 12-06-2022 End: 02-05-2023 CBC W Auto Differential panel - Blood CBC + DIFF Lab Routine Primary hypertension Irritable bowel syndrome with both constipation and diarrhea Expected: 12/06/2022 (Approximate), Expires: 02/05/2023 [facility] Work Phone: Comment on above: Expected: 12/06/2022 (Approximate), Expi res: 02/05/2023 Start: 12-06-2022 End: 02-05-2023 Comprehensive metabolic 2000 panel - Serum or Plasma COMP METABOLIC PANEL Lab Routine Primary hypertension Mixed hyperlipidemia Irritable bowel syndrome with both constipation and diarrhea IFG (impaired fasting glucose) Expected: 12/06/2022 (Approximate), Expires: 02/05/2023 [facility] Work Phone: Comment on above: Expected: 12/06/2022 (Approximate), Expi res: 02/05/2023 Start: 12-06-2022 End: 02-05-2023 Hemoglobin A1c in Blood HGB A1C Lab Routine IFG (impaired fasting glucose) Expected: 12/06/2022 (Approximate), Expires: 02/05/2023 [facility] Work Phone: Comment on above: Expected: 12/06/2022 (Approximate), Expi res: 02/05/2023 Start: 12-06-2022 End: 02-05-2023 Lipid 1996 panel - Serum or Plasma LIPID PANEL BASIC Lab Routine Mixed hyperlipidemia Expected: 12/06/2022 (Approximate), Expires: 02/05/2023 [facility] Work Phone: Comment on above: Expected: 12/06/2022 (Approximate), Expi res: 02/05/2023 Start: 12-01-2022 Adult depression screening assessment DEPRESSION SCREENING [facility] Start: 12-01-2022 ANNUAL PCP TEAM CHRONIC DISEASE VISIT ANNUAL PCP TEAM CHRONIC DISEASE VISIT [facility] Start: 07-18-2022 ANNUAL PCP TEAM CHRONIC DISEASE VISIT ANNUAL PCP TEAM CHRONIC DISEASE VISIT [facility] Start: 07-12-2022 SHINGRIX VACCINE (2 of 3) SHINGRIX VACCINE (2 of 3) [facility] Comment on above: Postponed from 07/06/2013 (Insurance Cov erage) Start: 07-11-2022 ADVANCE DIRECTIVE DISCUSSION ADVANCE DIRECTIVE DISCUSSION [facility] Start: 07-11-2022 DEPRESSION ASSESSMENT DEPRESSION ASSESSMENT [facility] Start: 06-08-2022 End: 08-08-2022 CBC W Auto Differential panel - Blood [facility] Work Phone: Comment on above: Expected: 06/08/2022, Expires: 3 Start: 06-08-2022 End: 08-08-2022 Comprehensive metabolic 2000 panel - Serum or Plasma [facility] Work Phone: Comment on above: Expected: 06/08/2022, Expires: 3 Start: 06-08-2022 End: 08-08-2022 Hemoglobin A1c in Blood [facility] Work Phone: Comment on above: Expected: 06/08/2022, Expires: 3 Start: 06-08-2022 End: 08-08-2022 LIPID PANEL, NONFASTING [facility] Work Phone: Comment on above: Expected: 06/08/2022, Expires: 3 Start: 03-11-2022 Influenza vaccination INFLUENZA (#1) [facility] Start: 01-21-2022 End: 01-20-2023 Bacteria identified in Urine by Culture URINE CULTURE Microbiology Routine UTI symptoms Expected: 01/21/2022 (Approximate), Expires: 01/20/2023 [facility] Work Phone: Comment on above: Expected: 01/21/2022 (Approximate), Expi res: 01/20/2023 Start: 10-22-2021 SHINGRIX VACCINE (2 of 3) SHINGRIX VACCINE (2 of 3) [facility] Comment on above: Postponed from 07/06/2013 (Insurance Cov erage) Start: 10-18-2021 Adult depression screening assessment DEPRESSION SCREENING [facility] Start: 09-07-2021 COVID-19 VACCINE (4 - Booster for Pfizer series) COVID-19 VACCINE (4 - Booster for Pfizer series) [facility] Start: 07-11-2021 ADVANCE DIRECTIVE DISCUSSION ADVANCE DIRECTIVE DISCUSSION [facility] Start: 03-31-2021 BP CONTROLLED (<130/80) BP CONTROLLED (<130/80) [facility] Start: 2016 RSV Vaccine (1 - 1-dose 75+ series) RSV Vaccine (1 - 1-dose 75+ series) [facility] Start: 07-06-2013 Shingrix Vaccine (1 of 2) Shingrix Vaccine (1 of 2) [facility] Start: 07-06-2013 SHINGRIX VACCINE (2 of 3) SHINGRIX VACCINE (2 of 3) [facility] Start: 2001 RSV Vaccine (1 - 1-dose 60+ series) RSV Vaccine (1 - 1-dose 60+ series) [facility] Bacteria identified in Urine by Culture URINE CULTURE Microbiology Routine Dysuria Ordered: 01/24/2022 [facility] Work Phone: Comment on above: Ordered: 01/24/2022 End: 10-24-2025 CT Hand - right WO contrast CT HAND WO IVCON RIGHT Radiology Routine Pain of right hand 1 Occurrences starting 09/24/2024 until 10/24/2025 [facility] Work Phone: Comment on above: 1 Occurrences starting 09/24/2024 until 10/24/2025 DBT Breast - bilater al screening CESAR SCREENING W RIVAS Radiology Routine Breast cancer screening by mammogram 08/19/2023 9:57 AM EST [facility] Work Phone: End: 08-18-2024 DBT Breast - bilateral screening CESAR SCREENING W [facility]AS Radiology Routine Breast cancer screening by mammogram 1 Occurrences starting 07/20/2023 until 08/18/2024 [facility] Work Phone: Comment on above: 1 Occurrences starting 07/20/2023 until 08/18/2024 End: 08-19-2025 DBT Breast - bilateral screening CESAR SCREENING W [facility]AS Radiology Routine Breast cancer screening by mammogram 1 Occurrences starting 07/20/2024 until 08/19/2025 [facility] Work Phone: Comment on above: 1 Occurrences starting 07/20/2024 until 08/19/2025 End: 10-02-2025 Echocardiography ECHO Cardiology Routine Primary hypertension WALTERS (dyspnea on exertion) Asymmetric hypertrophy of ventricular septum 1 Occurrences starting 10/02/2024 until 10/02/2025 [facility] Work Phone: Comment on above: 1 Occurrences starting 10/02/2024 until 10/02/2025 End: 01-22-2024 CESAR DIAGNOSTIC LEFT CESAR DIAGNOSTIC LEFT Radiology Routine Microcalcifications of the breast 1 Occurrences starting 12/23/2022 until 01/22/2024 [facility] Work Phone: Comment on above: 1 Occurrences starting 12/23/2022 until 01/22/2024 End: 10-20-2025 XR Foot - bilateral AP and Lateral and oblique XR FOOT GENERAL 3V AP/LAT/OBL BILATERAL Radiology Routine Primary osteoarthritis involving multiple joints Raynaud's disease without gangrene History of gastric ulcer Bilateral hand pain 1 Occurrences starting 09/20/2024 until 10/20/2025 [facility] Comment on above: 1 Occurrences starting 09/20/2024 until 10/20/2025 XR Foot - bilateral AP and Lateral and oblique XR FOOT GENERAL 3V AP/LAT/OBL BILATERAL Radiology Routine Primary osteoarthritis involving multiple joints Raynaud's disease without gangrene Shortness of breath Neuropathy History of gastric ulcer Bilateral hand pain 09/20/2024 11:00 AM EDT [facility] End: 10-20-2025 XR Hand - bilateral PA and Lateral and Oblique XR HAND GENERAL 3V PA/LAT/OBL BILATERAL Radiology Routine Bilateral hand pain 1 Occurrences starting 09/20/2024 until 10/20/2025 [facility] Comment on above: 1 Occurrences starting 09/20/2024 until 10/20/2025 XR Hand - bilateral PA and Lateral and Oblique XR HAND GENERAL 3V PA/LAT/OBL BILATERAL Radiology Routine Bilateral hand pain 09/20/2024 11:01 AM EDT [facility] Immunizations Immunization Date Immunization Notes Care Provider Fa flipty 08-14-2024 respiratory syncytia l virus (RSV) vaccine, bivalent (ABRYSVO) Elia Olivares OD Work Phone: [facility] 08-14-2024 zoster vaccine recombinant Elia Olivares OD Work Phone: [facility] 05-07-2024 influenza, high dose seasonal, preservative-free Preston Haney MD Work Phone: [facility] 05-11-2023 influenza, high dose seasonal, preservative-free Screen [facility] 05-11-2023 influenza virus vacc ine, unspecified formulation Byron Sutton APRN.RA[employer] CLERK Work Phone: [facility] 06-06-2022 COVID-19 booster vaccine, age 12+ yr, bivalent (PFIZER-BIONTObviousidea) Elisabeth Hoff APRN.HOLISTIC NUTRITIONIST Work Phone: [facility] Work Phone: 04-24-2022 influenza, high-dose , quadrivalent vaccine (FLUZONE HIGH DOSE QUADRIVALENT) Elisabeth Hoff APRN.HOLISTIC NUTRITIONIST Work Phone: [facility] Work Phone: 04-24-2022 influenza virus vacc ine, unspecified formulation Diagnostic [facility] 05-04-2021 influenza, high-dose , quadrivalent vaccine (FLUZONE HIGH DOSE QUADRIVALENT) Carlos Noble MD Work Phone: [facility] 09-24-2020 COVID-19 vaccine, ag e 12+ yr (PFIZER-BIONTECH - PURPLE TOP) Carlos See Work Phone: [facility] 09-01-2020 COVID-19 vaccine, ag e 12+ yr (PFIZER-BIONTECH - PURPLE TOP) Carlos See Work Phone: [facility] 05-01-2020 influenza virus vacc ine, unspecified formulation Carlos See Work Phone: [facility] 04-15-2019 influenza virus vacc ine, unspecified formulation Carlos See MD Work Phone: [facility] 04-15-2019 influenza, high dose seasonal, preservative-free Carlos See Work Phone: [facility] 08-24-2018 tetanus toxoid, redu diana diphtheria toxoid, and acellular pertussis vaccine, adsorbed Carlos See Work Phone: [facility] 04-16-2018 influenza virus vacc ine, unspecified formulation Carlos See Work Phone: [facility] 04-24-2016 influenza, high dose seasonal, preservative-free Carlos See Work Phone: [facility] 06-16-2015 pneumococcal conjuga te vaccine, 13 valent Carlos See Work Phone: [facility] 04-14-2015 influenza, seasonal, injectable Carlos See Work Phone: [facility] 04-14-2014 influenza, seasonal, injectable Carlos See Work Phone: [facility] 05-11-2013 zoster vaccine, live Carlos lundberg MD Work Phone: [facility] 04-10-2013 influenza virus vacc ine, unspecified formulation Carlos See Work Phone: [facility] 04-27-2012 influenza virus vacc ine, unspecified formulation Carlos See Work Phone: [facility] Work Phone: 04-21-2010 influenza virus vacc ine, unspecified formulation Carlos See Work Phone: [facility] 05-08-2009 influenza virus vacc ine, unspecified formulation Carlos See Work Phone: [facility] Work Phone: 07-07-2007 diphtheria and tetan us toxoids, adsorbed for pediatric use Carlos See MD Work Phone: [facility] Work Phone: 07-07-2007 pneumococcal polysaccharide vaccine, 23 valent Carlos See Work Phone: [facility] Work Phone: 05-16-2007 influenza virus vacc ine, unspecified formulation Carlos See Work Phone: [facility] 06-14-2006 influenza virus vacc ine, unspecified formulation Carlos See Work Phone: [facility] Work Phone: 06-10-2002 influenza virus vacc ine, unspecified formulation Carlos See Work Phone: [facility] Work Phone: 03-11-2000 pneumococcal polysaccharide vaccine, 23 valent Carlos See Work Phone: [facility] Work Phone: 04-15-1998 diphtheria and tetan us toxoids, adsorbed for pediatric use Carlos See Work Phone: [facility] Work Phone: Payers Date Payer Category Payer Medicare (Managed Care) MMO [employer] O Member Subscriber Plan / Payer (Effective 2024-Present) Name: Concepcion Donaldson Relation to Subscriber: Self Name: Concepcion Donaldson Payer ID: Not on file Type: HMO Address: [place] [id number] 2024 Unknown [id number] 2024 Self-pay [id number] 2022 Unknown [id number] 2022 Unknown [id number] 2021 Medicare HUMANA MEDICARE HUMANA MEDICARE PPO [id number] 2021-[facility] [phone] [facility] [id number] [place] [address] PPO [id number] 2021 Medicare [id number] 2021 Medicare [id number] Private Health Insurance [facility] [id number] Health Insurance [id number] [id number] Unknown [id number] Unknown [id number] Unknown [id number] Unknown [id number] Unknown [id number] Unknown [id number] Unknown [id number] Unknown [id number] Unknown [id number] Unknown [id number] Unknown [id number] Social History Date Type Detail Facility Start: 09-06-2011 End: 06-08-2022 Tobacco smoking status NHIS Never smoked tobacco [facility] Start: 10-08-2021 End: 11-19-2024 Alcohol intake Current non-drinker of alcohol (finding) [facility] Start: 12-20-2019 End: 06-07-2022 History SDOH Alcohol Frequency 1 [facility] Start: 12-20-2019 End: 03-26-2020 History SDOH Alcohol Std Drinks 98 [facility] Start: 08-20-2019 End: 06-07-2022 History SDOH Social Connections Phone 5 [facility] Start: 08-20-2019 End: 06-07-2022 History SDOH Social Connections Meetings 3 [facility] Start: 03-26-2020 History SDOH Physica l Activity DPW 6 [facility] Start: 08-20-2019 End: 06-07-2022 History SDOH Stress 2 [facility] Start: 03-26-2020 Education 12 [facility] Start: 1940 Sex Assigned At Female [facility] Start: 09-19-2021 End: 06-08-2022 Exposure to SARS-CoV-2 (event) Not sure [facility] Start: 12-11-2021 End: 08-19-2022 Tobacco smoking status NHIS Unknown if ever smoked [facility] Start: 09-06-2011 End: 06-08-2022 Tobacco use and exposure Smokeless tobacco non-user [facility] Start: 06-07-2022 History SDOH Alcohol Std Drinks 0 [facility] Start: 06-07-2022 History SDOH Financial 4 [facility] Start: 06-07-2022 End: 02-07-2023 History of Social function [facility] Start: 06-07-2022 End: 02-07-2023 Social connection and isolation panel [facility] Do you belong to any clubs or organizations such as druze groups, unions, fraternal or athletic groups, or school groups? Yes [facility] Are you now , , , , never or living with a partner? [facility] How often to you hav e a drink containing alcohol? Never [facility] How many standard dr inks containing alcohol do you have on a typical day? Patient does not drink [facility] How hard is it for y ou to pay for the very basics like food, housing, medical care, and heating Not very hard [facility] Do you feel stress - tense, restless, nervous, or anxious, or unable to sleep at night because your mind is troubled all the time - these days [OSQ] Only a little [facility] (I/We) worried whehaily er (my/our) food would run out before (I/we) got money to buy more. Never true [facility] In the past 12 month s, was there a time when you were not able to pay the mortgage or rent on time? No [facility] Start: 02-12-2019 Gender identity Identifies as female gender (finding) [facility] Functional Status Date Assessment Result Facility 12-05-2014 Are you deaf, or do you have serious difficulty hearing No 12/05/2014 12:33 PM Cayla Simpson RN No [facility] Work Phone: 12-05-2014 Are you blind, or do you have serious difficulty seeing, even when wearing glasses No 12/05/2014 12:33 PM Cayla Simpson RN No [facility] 12-05-2014 Do you have serious difficulty walking or climbing stairs No 12/05/2014 12:33 PM Cayla Simpson RN No [facility] 12-05-2014 Do you have difficul ty dressing or bathing No 12/05/2014 12:33 PM Cayla Simpson RN No [facility] 12-05-2014 Because of a physica l, mental, or emotional condition, do you have difficulty doing errands alone such as visiting a physician's office or shopping No 12/05/2014 12:33 PM EDT Cayla Dias RN No [facility] Mental Status Date Assessment Result Facility 12-05-2014 Because of a physica l, mental, or emotional condition, do you have serious difficulty concentrating, remembering, or making decisions No 12/05/2014 12:33 PM EDT Cayla Dias RN No [facility] Clinical Notes 04-21-2010 to 11-26-2024 Elia Olivares OD - 11/26/2024 10:26 AM EDTPatient InstructionsJv Brooks MD - 11/19/2024 1:40 PM EDTTelephone Encounter - Ary Manning LPN - 10/19/2024 3:22 PM EDTPatient Instructions Note Date & Type Note Facility 11-26-2024 Note HNO ID: [id number] Author: ELIA OLIVARES OD Service: ? Author Type: SCREEN PRINTER Type: Progress Notes Filed: 11/26/2024 10:33 Note Text: 1. High risk medication use (Primary) - Indication: arthritis - no signs of toxicity today on exam - OCT (12/06/24): normal - Visual Field 10-2 (11/26/24): normal - has been using plaquenil 200 mg daily since October 2024 - The recommended dosage is the lower of 5 mg/kg/day based on real body weight or 6.5 mg/kg/day based on ideal body weight as described in the most recent AAO plaquenil screening guidelines - Risk factors for toxicity include daily dose and duration of use, renal disease, tamoxifen use, history of retinal or macular disease - Patient is 72.1 kg which gives a maximum safe ophthalmic dose of 360.5mg daily by real body weight 2. Dry eye syndrome of bilateral lacrimal glands Recommended increasing artificial tears and using gel nightly (Has tried Restasis and Xiidra in past but too much burning) Not interested in serum tears 3. Pseudophakia of both eyes Clear capsule Monitor Finalized spec rx- minimal change but patient appreciated difference 4. Posterior vitreous detachment of both eyes Warned patient about signs/symptoms of retinal pathology and to call immediately with any sudden increase in flashes/floaters or curtain/veil over vision 5. Prediabetes HbA1c reviewed Educated patient to continue care and current treatment regimen with primary care doctor and/or manager post to maintain optimum levels as they are important to avoid ocular complications Encouraged patient to call the office immediately with any changes to vision or visual concerns Urged patient to get annual plaquenil testing and follow-up with Dr. Curiel for exams (me as needed) Elia Olivares, OD November 26, 2024 10:28 AM [facility] 11-26-2024 Note Date of Procedure 11/26/2024. 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 Start time: 9:00 AM. Stop time: 9:09 AM. OCT Macula Interpretation Right Eye Normal without fluid. Left Eye Normal without fluid. Interval Change Right Eye Initial. Left Eye Initial. [facility] 11-26-2024 Note Date of Procedure 11/26/2024. 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 Start time: 9:09 AM. Stop time: 9:34 AM. Reliability Right Eye Good. Left Eye Good. Interpretation Right Eye Non-specific defect. Left Eye Non-specific defect. Interval Change Right Eye Initial. Left Eye Initial. Notes Non-specific defects on pattern deviation No plaquenil toxicity [facility] 11-26-2024 History of Present illness Narrative 1. High risk medication use (Primary) - Indication: arthritis - no signs of toxicity today on exam - OCT (12/06/24): normal - Visual Field 10-2 (11/26/24): normal - has been using plaquenil 200 mg daily since October 2024 - The recommended dosage is the lower of 5 mg/kg/day based on real body weight or 6.5 mg/kg/day based on ideal body weight as described in the most recent AAO plaquenil screening guidelines - Risk factors for toxicity include daily dose and duration of use, renal disease, tamoxifen use, history of retinal or macular disease - Patient is 72.1 kg which gives a maximum safe ophthalmic dose of 360.5mg daily by real body weight 2. Dry eye syndrome of bilateral lacrimal glands Recommended increasing artificial tears and using gel nightly (Has tried Restasis and Xiidra in past but too much burning) Not interested in serum tears 3. Pseudophakia of both eyes Clear capsule Monitor Finalized spec rx- minimal change but patient appreciated difference 4. Posterior vitreous detachment of both eyes Warned patient about signs/symptoms of retinal pathology and to call immediately with any sudden increase in flashes/floaters or curtain/veil over vision 5. Prediabetes HbA1c reviewed Educated patient to continue care and current treatment regimen with primary care doctor and/or manager post to maintain optimum levels as they are important to avoid ocular complications Encouraged patient to call the office immediately with any changes to vision or visual concerns Urged patient to get annual plaquenil testing and follow-up with Dr. Curiel for exams (me as needed) Elia Olivares, LETY November 26, 2024 10:28 AM documented in this encounter [facility] 11-26-2024 Instructions Elia Olivares, OD - 11/26/2024 10:01 AM EDT Use Systane Complete or Refresh Relieva 2-3 times daily Use Systane, Refresh or Blink gel nightly before bed in both eyes documented in this encounter [facility] 11-19-2024 Note HNO ID: [id number] Author: JV BROOKS MD Service: ? Author Type: Physician Type: Progress Notes Filed: 12/11/2024 00:10 Note Text: Jv Brooks MD Department of Orthopaedics Orthopaedics [address] [facility] [address] Dept: [phone] Dept November 19, 2024 CHIEF COMPLAINT: New and Pain of the Right Hand Concepcion is an 83-year-old female with a history of arthritis, presenting for evaluation of worsening finger deformities and swelling. HPI Finger Deformities and Swelling: - Progressive deformities and swelling in multiple fingers, worsening over the past 5 years. - Significant functional limitations: unable to wring out washcloths, peel potatoes/apples, or make a fist. - Notable swelling in fingers began after the first of the year. - Middle finger on the right hand is particularly affected, with limited motion and swelling. - Reports occasional pain at the base of the right thumb joint. - Denies known history of gout in knees or toes. - Currently managed with Plaquenil and occasional Prednisone. - Under the care of rheumatology; next appointment scheduled for January. 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 Pain of right hand (M79.641) 2. Swelling of right middle finger (M79.89) 3. Arthritis of finger (M19.049) 4. Inflammatory arthritis (M19.90) - Chronic swelling and limited range of motion in multiple fingers, particularly the right middle finger, with significant functional impairment. - Differential diagnosis includes seronegative rheumatoid arthritis and gout; however, gout is less likely given the absence of symptoms in other typical areas. - Currently managed with Plaquenil and intermittent prednisone. - Discussed potential surgical intervention for the right middle finger, including silicone joint replacement to improve function and reduce swelling. - Surgical procedure would allow for histopathological examination of the tissue to confirm diagnosis. - Will consult with rheumatology and hand surgery colleagues to finalize treatment plan. - Patient to discuss surgical option with family and will follow up with decision. Will continue to monitor patient for Pain of right hand Swelling of right middle finger Arthritis of finger (primary encounter diagnosis) Inflammatory arthritis, patient to schedule visit as per follow up discussed. OBJECTIVE: Ms. Concepcion Donaldson is a pleasant 83 year old in no apparent distress. Gen:There were no vitals taken for this visit. nl development, non obese, no deformities ENT: Normocephalic, normal hearing, moist mucosa CV: Pulses:Radial= 2+ and symmetric, capillary refill < 2 secs, no peripheral edema/varicosities Skin: no rash, bruising or lesions. Good turgor. Psych: cooperative and appropriate, alert and oriented x 3, good mood and affect. Musculoskeletal: - Musculoskeletal: - Right Hand: - Index Finger: MCP flexion to 80 degrees, PIP flexion to 95 degrees, full DIP flexion. - Middle Finger: MCP flexion to 90 degrees, PIP flexion to 50 degrees, slight limitation in extension. - Ring Finger: MCP flexion to 90 degrees, PIP flexion to 95-100 degrees. - Right Thumb: Arthritic changes noted at the base of the joint. IMAGING: Labs: - Serum uric acid: Elevated Imaging: - X-ray (date not provided) of the hands, feet, and hips: - Findings: Advanced arthritic changes in the right middle finger with bone spur formation; arthritic changes at the base of the right thumb. 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 Clemons Past Surgical History: PAST SURGICAL HISTORY Procedure Laterality Date PRAKASH PH PLACEMENT W/O ENDOSCOPY 09/03/[address] [facility] [address] Cabello CHOLECYSTECTOMY 1981 COLONOSCOPY FLX DX W/COLLJ SPEC WHEN PFRMD 05/17/2002 Colonoscopy COLONOSCOPY FLX DX W/COLLJ SPEC WHEN PFRMD 07/18/2016 Colonoscopy COLONOSCOPY W/BIOPSY SINGLE/MULTIPLE 07/14/2010 DILATION AND CURETTAGE DXAND/THER NONOBSTETRIC 03/21/2001 Dilation AND curettage attempted in the OR EGD TRANSORAL BIOPSY SINGLE/MULTIPLE 07/28/2007 HH, esophagitis,antral gastritis EGD TRANSORAL BIOPSY SINGLE/MULTIPLE 05/27/2008 HH, esophagits, antral gastritis ESOPHAG (more content not included)... [facility] 11-19-2024 History of Present illness Narrative Jv Brooks MD Department of Orthopaedics Orthopaedics [address] [facility] [address] Dept: [phone] Dept November 19, 2024 CHIEF COMPLAINT: New and Pain of the Right Hand Concepcion is an 83-year-old female with a history of arthritis, presenting for evaluation of worsening finger deformities and swelling. HPI Finger Deformities and Swelling: - Progressive deformities and swelling in multiple fingers, worsening over the past 5 years. - Significant functional limitations: unable to wring out washcloths, peel potatoes/apples, or make a fist. - Notable swelling in fingers began after the first of the year. - Middle finger on the right hand is particularly affected, with limited motion and swelling. - Reports occasional pain at the base of the right thumb joint. - Denies known history of gout in knees or toes. - Currently managed with Plaquenil and occasional Prednisone. - Under the care of rheumatology; next appointment scheduled for January. 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 Pain of right hand (M79.641) 2. Swelling of right middle finger (M79.89) 3. Arthritis of finger (M19.049) 4. Inflammatory arthritis (M19.90) - Chronic swelling and limited range of motion in multiple fingers, particularly the right middle finger, with significant functional impairment. - Differential diagnosis includes seronegative rheumatoid arthritis and gout; however, gout is less likely given the absence of symptoms in other typical areas. - Currently managed with Plaquenil and intermittent prednisone. - Discussed potential surgical intervention for the right middle finger, including silicone joint replacement to improve function and reduce swelling. - Surgical procedure would allow for histopathological examination of the tissue to confirm diagnosis. - Will consult with rheumatology and hand surgery colleagues to finalize treatment plan. - Patient to discuss surgical option with family and will follow up with decision. Will continue to monitor patient for Pain of right hand Swelling of right middle finger Arthritis of finger (primary encounter diagnosis) Inflammatory arthritis, patient to schedule visit as per follow up discussed. OBJECTIVE: Ms. Concepcion Donaldson is a pleasant 83 year old in no apparent distress. Gen:There were no vitals taken for this visit. nl development, non obese, no deformities ENT: Normocephalic, normal hearing, moist mucosa CV: Pulses:Radial= 2+ and symmetric, capillary refill < 2 secs, no peripheral edema/varicosities Skin: no rash, bruising or lesions. Good turgor. Psych: cooperative and appropriate, alert and oriented x 3, good mood and affect. Musculoskeletal: - Musculoskeletal: - Right Hand: - Index Finger: MCP flexion to 80 degrees, PIP flexion to 95 degrees, full DIP flexion. - Middle Finger: MCP flexion to 90 degrees, PIP flexion to 50 degrees, slight limitation in extension. - Ring Finger: MCP flexion to 90 degrees, PIP flexion to 95-100 degrees. - Right Thumb: Arthritic changes noted at the base of the joint. IMAGING: Labs: - Serum uric acid: Elevated Imaging: - X-ray (date not provided) of the hands, feet, and hips: - Findings: Advanced arthritic changes in the right middle finger with bone spur formation; arthritic changes at the base of the right thumb. 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 Clemons Past Surgical History: PAST SURGICAL HISTORY Procedure Laterality Date PRAKASH PH PLACEMENT W/O ENDOSCOPY 09/03/[address] [facility] [address] Cabello CHOLECYSTECTOMY 1981 COLONOSCOPY FLX DX W/COLLJ SPEC WHEN PFRMD 05/17/2002 Colonoscopy COLONOSCOPY FLX DX W/COLLJ SPEC WHEN PFRMD 07/18/2016 Colonoscopy COLONOSCOPY W/BIOPSY SINGLE/MULTIPLE 07/14/2010 DILATION & CURETTAGE DX&/THER NONOBSTETRIC 03/21/2001 Dilation & curettage attempted in the OR EGD TRANSORAL BIOPSY SINGLE/MULTIPLE 07/28/2007 HH, esophagitis,antral gastritis EGD TRANSORAL BIOPSY SINGLE/MULTIPLE 05/27/2008 HH, esophagits, antral gastritis ESOPHAGOGASTRODUODENOSCOPY TRANSORAL DIAGNOSTIC 07/18/2016 EGD LIG/TRNSXJ FLP TUBE ABDL/VAG APPR UNI/BI 1974 NEUROPLASTY &/TRANSPOS MEDIAN NRV CARPAL TUNNE Bilateral 2000 2001 Carpal tunnel decomp PAST SURGICAL HISTORY OF BILAT. BUNIONECTOMY PAST SURGICAL HISTORY OF Right 2004 right middle finger trigger release PAST SURGICAL HISTORY OF Right 1972 vein stripping right leg PAST SURGICAL HISTORY OF 04/17/2009 Dr. Hoff Total vaginal hysterectomy, uterosacral vaginal vault suspension, anterior repair, Monarc sling, and cystoscopy PAST SURGICAL HISTORY OF 08/22/2019 skin ca nose removed PAST SURGICAL HISTORY OF 11/20/2019 Dr. Dickens--BCC on left side of nose in the groove REMV CATARACT EXTRACAP,INSERT LENS 03/05/2020 03/18/2020 SKIN BX, 1 LESION 08/2020 on neck- squamous cell carcinomia Family History: FAMILY HISTORY Problem Relation Age of Onset Heart Father Cancer Father leukemia Hypertension Mother congestive heart failure Thyroid Mother Cataract Mother Hypertension Brother Heart Grandchild mitral valve prolapse Cataract Sister other (cerebral hem) Sister Diabetes Daughter Social History: Social History Tobacco Use Smoking status: Never Smokeless tobacco: Never Vaping Use Vaping status: Never Used Substance Use Topics Alcohol use: No Drug use: No Medications: Current Outpatient Medications Medication Sig hydrOXYchloroQUINE (PLAQUENIL) 200 mg tablet Take 1 tablet by mouth once daily. omeprazole (PRILOSEC) 20 mg capsule Take 1 capsule by mouth two times a day. 1/2 HR BEFORE MEAL. nortriptyline (PAMELOR) 25 mg capsule Take 1 capsule by mouth daily at bedtime. calcitriol (ROCALTROL) 0.25 mcg capsule Take 1 capsule by mouth once daily. lisinopril-hydroCHLOROthiazide (ZESTORETIC) 20-12.5 mg per tablet Take 1 tablet by mouth two times a day. lovastatin 40 mg tablet Take 1 tablet by mouth daily at bedtime. metoprolol succinate ER (TOPROL XL) 50 mg 24 hr tablet Take 1 tablet by mouth every morning AND 0.5 tablets every afternoon. estradiol (ESTRACE) 0.01 % (0.1 mg/gram) vaginal cream Use 1 g vaginally daily at bedtime for 14 days, THEN 1 g two times a week. MINERAL OIL ORAL Take by mouth as needed (constipation). cholecalciferol (VITAMIN D3) 50 mcg (2,000 unit) tablet Take 2,000 Units by mouth once daily. polyethylene glycol 3350 (MIRALAX, GLYCOLAX) 17 gram/dose powder Take 17 g by mouth once daily. Methylcellulose, Laxative, 500 mg tab TAKE TWO TABLETS TWICE DAILY omega-3 fatty acids/vitamin e(FISH OIL 1,000 MG CAP) Take one(1) tablet daily. THERAPEUTIC MULTIVITAMIN TAB Take one(1) tablet daily. calcium carbonate (CALTRATE) 600 mg calcium (1,500 mg) tab Take 1,200 mg by mouth once daily. No current facility-administered medications for this visit. Allergies: Fosamax [Alendronate Sodium], Codeine, Niacin, Sulfa (Sulfonamide Antibiotics), Vioxx [Rofecoxib], Zyrtec [Cetirizine Hcl], Celebrex [Celecoxib], Grass Pollen, Nitrofurantoin Monohyd/M-Cryst, Penicillins, and Sucralfate ROS: General (negative for fatigue, malaise, weight loss/gain) HEENT (negative for headache, earache, recent vision changes, sinus pain, sore throat) Respiratory (no recent shortness of breath, hemoptysis) CV (negative for chest tightness, palpitations) Musculoskeletal (see HPI) Psych (no depression, anxiety) Musculoskeletal: (+) finger swelling, (+) lumps in fingers, (+) decreased mold maker plastic molds strength, (+) limited range of motion, (+) hand/finger pain with usage REFERRING PHYSICIAN: Consultation requested by Delisa for an opinion regarding hand swelling. My final recommendations will be communicated back to the requesting physician by way of shared Medical record or letter to requesting physician via [place] mail. 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 Patient/authorized franchise sales representative agreed to proceed Jv Brooks MD documented in this encounter [facility] 10-19-2024 Telephone encounter Note Patient notified and going to reach out to Dr. Pereira's office. [facility] 10-19-2024 Miscellaneous Notes Patient notified and going to reach out to Dr. Pereira's office. Please let her know to follow back up with cardiology at this point and see if they want to do any further work up or adjustments. Spoke with pt gave results provided. She voices understanding. She states her b/p in still up and down. She is no better or worse with shortness of breath than when here. States if she has to take several trips up and down she may get a bit sob or if lifts something maybe awkward shaped may get winded. This morning her b/p was 147/77 and last evening was 155/85. Please let Concepcion know that her ECHO was stable. Please see if she is still having issues with shortness of breath. Thanks! documented in this encounter [facility] 10-17-2024 Progress note Formatting of t his note might be different from the original. Please let her know to follow back up with cardiology at this point and see if they want to do any further work up or adjustments. [facility] 10-17-2024 Telephone encounter Note Spoke with pt gave results provided. She voices understanding. She states her b/p in still up and down. She is no better or worse with shortness of breath than when here. States if she has to take several trips up and down she may get a bit sob or if lifts something maybe awkward shaped may get winded. This morning her b/p was 147/77 and last evening was 155/85. [facility] 10-17-2024 Telephone encounter Note Please let Concepcion know that her ECHO was stable. Please see if she is still having issues with shortness of breath. Thanks! [facility] 10-11-2024 Instructions Lexis Roca PA-C - 10/11/2024 9:37 AM EDT - Start taking Plaquenil (hydroxychloroquine) 200 mg once daily; prescription sent to [facility] in [place]. - Schedule a baseline OCT and visual dove test with a [facility] air traffic control supervisor within the first three months of starting Plaquenil. - Follow up with your eye doctor yearly for OCT and visual dove testing while on Plaquenil. - Schedule an appointment with Dr. Brooks or his PA, Bisi Brock, for an orthopedic evaluation and possible aspiration of the swollen knuckle. - Next follow-up appointment in 3 months to assess medication tolerance and review orthopedic visit findings. documented in this encounter [facility] 10-11-2024 Note HNO ID: [id number] Author: LEXIS ROCA PA-C Service: ? Author Type: Physician Pension Agent Type: Progress Notes Filed: 10/11/2024 18:02 Note Text: Rheumatology FOLLOW UP VISIT Date of Service: 10/11/2024 Patient: Concepcion Donaldson Medical Record: [id number] Primary Care Physician: Preston Haney MD Last Rheumatology visit: None at [facility] History of Present Illness Concepcion Donaldson is a 83 year old White female who presents on 10/11/2024 for an in-person visit for evaluation of established patient. She is currently taking hydroxychloroquine sulfate. Concepcion is both RF - 9 (09/20/2024) and CCP - 13.5 (09/20/2024) negative. Her most recent ANNIE was negative (06/17/2015). Concepcion reports chronic hand and foot pain with associated swelling and stiffness. She notes difficulty with activities such as peeling potatoes and apples for the past 5 years. She has been unable to wear rings due to swelling and reports gradual worsening of symptoms over the past year. She denies major flare-ups with hot, red, or more swollen joints, stating the condition has been gradually worsening. She recently completed a course of prednisone, which provided approximately 50% improvement in pain and stiffness but did not reduce swelling. She reports increased squeezing power in her hands but continues to experience pain, particularly when bumping her hands. She notes tenderness in her left fifth finger PIP joint and mild tenderness and swelling in the left fourth PIP joint. The left middle PIP finger is swollen and tender, while the left index PIP finger is not significantly tender. The left CMC joint is prominent but not painful. In the right hand, the third PIP joint is very swollen, warm, and tender with fluid. The right index finger shows no swelling or tenderness. The right second MCP joint is mildly tender. She reports pain in both wrists, wearing bands for support. She has a history of methotrexate use but discontinued due to side effects and insurance issues. She denies current use of prednisone and reports that pain has not returned since stopping the medication last Tuesday. Recent lab work showed a slightly elevated uric acid level. X-rays revealed moderate osteoarthritis in the feet, particularly at the base of the right big toe, and advanced degenerative changes in the left thumb and right long finger, with subluxation noted. No erosions were observed. Pain Evaluation 01/27/2021 07/18/2021 07/14/2023 08/19/2024 09/20/2024 Pain Evaluation Pain Score 4 6 8 4 4 6 Location Vagina Back-Lower Leg-Left Finger Hand-Right Location Comment Right medial thigh pain Description Burning Aching Aching;Numbness;Radiating;Sharp;Sh ooting;Spasm;Stiffness;Throbbing;T ightness;Tin gling Aching;Phantom;Stabbing;Stiffness Aching Duration (#) 6 1 3 1 Duration (Timeframe) Months Weeks Weeks Weeks Years Frequency Intermittent Continuous Intermittent Intermittent Continuous Intervention Medication Distractions;Heat;Positioning Heat Patient-Entered Data PROMIS Assessments 02/06/2023 07/14/2023 01/13/2024 PROMIS Global Health - (T-Scores - the mean of general population = 50. Five points is a clinically meaningful difference.) Physical T-Score 44.9 37.4 42.3 Mental T-Score 45.8 45.8 45.8 07/16/2024 08/19/2024 10/04/2024 PROMIS CAT Pain Interference PROMIS Pain Interference T-Score (range: 10 - 90) 59 (mild) 56 (mild) PROMIS Pain Interference Percentile 18 27 PROMIS Adult Short Form-Global Health Score (Mental) Incomplete Incomplete 08/19/2024 10/04/2024 PROMIS CAT Fatigue PROMIS Fatigue T-Score 55 (within normal limits) 53 (within normal limits) PROMIS Fatigue Percentile 31 38 08/19/2024 10/04/2024 PROMIS PHYSICAL FUNCTION T-SCORE PROMIS Physical Function T-Score 39 (moderate dysfunction) 39 (moderate dysfunction) Physical Function Percentile 14 14 RAPID 3 Oh Activities of Daily Living 09/14/2024 10:29 AM 08/19/2024 3:32 PM Dress self? Without ANY difficulty Without ANY difficulty Get in and out of bed? Without ANY difficulty Without ANY difficulty Walk outdoors? With SOME difficulty With SOME difficulty Wash and dry body? Without ANY difficulty Without ANY difficulty Get in and out of car? Without ANY difficulty Without ANY difficulty RAPID 3 Disease Activity Weighed Score Levels: 0 - 1: Near Remission 1.3 - 2.0: Low Severity 2.3 - 4.0: Moderate Severity 4.3 - 10.0: High Severity 08/19/2024 09/14/2024 RAPID-3 Weighed Score RAPID 3 Weighed Score 2.56 (Moderate severity ) 2.56 (Moderate severity ) Review of Systems Review of Systems CONSTITUTION: Negative for: Fever and Recent weight change HEENT: Negative for: Nosebleeds, Mouth sores, Trouble swallowing and Dry mouth RESPIRATORY: Positive for: Shortness of breath Negative for: Cough and Pain with breathing GASTROINTESTINAL: Negative for: Melena, Diarrhea, Heartburn and Abdominal pain MUSCULOSKELETAL: Positive for: Arthralgias, Myalgias, Muscle we (more content not included)... [facility] 10-11-2024 History of Present illness Narrative Images from the original note were not included. Rheumatology FOLLOW UP VISIT Date of Service: 10/11/2024 Patient: Concepcion Donaldson Medical Record: [id number] Primary Care Physician: Preston Haney MD Last Rheumatology visit: None at [facility] History of Present Illness Concepcion Donaldson is a 83 year old White female who presents on 10/11/2024 for an in-person visit for evaluation of established patient. She is currently taking hydroxychloroquine sulfate. Concepcion is both RF - 9 (09/20/2024) and CCP - 13.5 (09/20/2024) negative. Her most recent ANNIE was negative (06/17/2015). Concepcion reports chronic hand and foot pain with associated swelling and stiffness. She notes difficulty with activities such as peeling potatoes and apples for the past 5 years. She has been unable to wear rings due to swelling and reports gradual worsening of symptoms over the past year. She denies major flare-ups with hot, red, or more swollen joints, stating the condition has been gradually worsening. She recently completed a course of prednisone, which provided approximately 50% improvement in pain and stiffness but did not reduce swelling. She reports increased squeezing power in her hands but continues to experience pain, particularly when bumping her hands. She notes tenderness in her left fifth finger PIP joint and mild tenderness and swelling in the left fourth PIP joint. The left middle PIP finger is swollen and tender, while the left index PIP finger is not significantly tender. The left CMC joint is prominent but not painful. In the right hand, the third PIP joint is very swollen, warm, and tender with fluid. The right index finger shows no swelling or tenderness. The right second MCP joint is mildly tender. She reports pain in both wrists, wearing bands for support. She has a history of methotrexate use but discontinued due to side effects and insurance issues. She denies current use of prednisone and reports that pain has not returned since stopping the medication last Tuesday. Recent lab work showed a slightly elevated uric acid level. X-rays revealed moderate osteoarthritis in the feet, particularly at the base of the right big toe, and advanced degenerative changes in the left thumb and right long finger, with subluxation noted. No erosions were observed. Pain Evaluation 01/27/2021 07/18/2021 07/14/2023 08/19/2024 09/20/2024 Pain Evaluation Pain Score 4 6 8 4 4 6 Location Vagina Back-Lower Leg-Left Finger Hand-Right Location Comment Right medial thigh pain Description Burning Aching Aching;Numbness;Radiating;Sharp;Sh ooting;Spasm;Stiffness;Throbbing;T ightness;Tingling Aching;Phantom;Stabbing;Stiffness Aching Duration (#) 6 1 3 1 Duration (Timeframe) Months Weeks Weeks Weeks Years Frequency Intermittent Continuous Intermittent Intermittent Continuous Intervention Medication Distractions;Heat;Positioning Heat Patient-Entered Data PROMIS Assessments 02/06/2023 07/14/2023 01/13/2024 PROMIS Global Health - (T-Scores - the mean of general population = 50. Five points is a clinically meaningful difference.) Physical T-Score 44.9 37.4 42.3 Mental T-Score 45.8 45.8 45.8 07/16/2024 08/19/2024 10/04/2024 PROMIS CAT Pain Interference PROMIS Pain Interference T-Score (range: 10 - 90) 59 (mild) 56 (mild) PROMIS Pain Interference Percentile 18 27 PROMIS Adult Short Form-Global Health Score (Mental) Incomplete Incomplete 08/19/2024 10/04/2024 PROMIS CAT Fatigue PROMIS Fatigue T-Score 55 (within normal limits) 53 (within normal limits) PROMIS Fatigue Percentile 31 38 08/19/2024 10/04/2024 PROMIS PHYSICAL FUNCTION T-SCORE PROMIS Physical Function T-Score 39 (moderate dysfunction) 39 (moderate dysfunction) Physical Function Percentile 14 14 RAPID 3 Oh Activities of Daily Living 09/14/2024 10:29 AM 08/19/2024 3:32 PM Dress self? Without ANY difficulty Without ANY difficulty Get in and out of bed? Without ANY difficulty Without ANY difficulty Walk outdoors? With SOME difficulty With SOME difficulty Wash and dry body? Without ANY difficulty Without ANY difficulty Get in and out of car? Without ANY difficulty Without ANY difficulty RAPID 3 Disease Activity Weighed Score Levels: 0 - 1: Near Remission 1.3 - 2.0: Low Severity 2.3 - 4.0: Moderate Severity 4.3 - 10.0: High Severity 08/19/2024 09/14/2024 RAPID-3 Weighed Score RAPID 3 Weighed Score 2.56 (Moderate severity ) 2.56 (Moderate severity ) Review of Systems Review of Systems CONSTITUTION: Negative for: Fever and Recent weight change HEENT: Negative for: Nosebleeds, Mouth sores, Trouble swallowing and Dry mouth RESPIRATORY: Positive for: Shortness of breath Negative for: Cough and Pain with breathing GASTROINTESTINAL: Negative for: Melena, Diarrhea, Heartburn and Abdominal pain MUSCULOSKELETAL: Positive for: Arthralgias, Myalgias, Muscle weakness, Joint swelling and Morning Joint Stiffness NEUROLOGICAL: Positive for: Headaches, Numbness and Memory loss SKIN: Positive for: Skin changes, Hair loss and Nail changes Negative for: Rash EYES: Positive for: Eye redness, Eye dryness and Visual disturbance Negative for: Eye pain CARDIOVASCULAR: Negative for: Chest pain and Leg swelling GENITOURINARY: Negative for: Dysuria and Hematuria HEMATOLOGIC/LYMPHATIC: Negative for: Swollen glands All other reviewed and negative other than HPI. 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 Clemons Past Surgical History PAST SURGICAL HISTORY Procedure Laterality Date PRAKASH PH PLACEMENT W/O ENDOSCOPY 09/03/[address] [facility] [address] Cabello CHOLECYSTECTOMY 1981 COLONOSCOPY FLX DX W/COLLJ SPEC WHEN PFRMD 05/17/2002 Colonoscopy COLONOSCOPY FLX DX W/COLLJ SPEC WHEN PFRMD 07/18/2016 Colonoscopy COLONOSCOPY W/BIOPSY SINGLE/MULTIPLE 07/14/2010 DILATION & CURETTAGE DX&/THER NONOBSTETRIC 03/21/2001 Dilation & curettage attempted in the OR EGD TRANSORAL BIOPSY SINGLE/MULTIPLE 07/28/2007 HH, esophagitis,antral gastritis EGD TRANSORAL BIOPSY SINGLE/MULTIPLE 05/27/2008 HH, esophagits, antral gastritis ESOPHAGOGASTRODUODENOSCOPY TRANSORAL DIAGNOSTIC 07/18/2016 EGD LIG/TRNSXJ FLP TUBE ABDL/VAG APPR UNI/BI 1974 NEUROPLASTY &/TRANSPOS MEDIAN NRV CARPAL TUNNE Bilateral 2000 2001 Carpal tunnel decomp PAST SURGICAL HISTORY OF BILAT. BUNIONECTOMY PAST SURGICAL HISTORY OF Right 2004 right middle finger trigger release PAST SURGICAL HISTORY OF Right 1972 vein stripping right leg PAST SURGICAL HISTORY OF 04/17/2009 Dr. Hoff Total vaginal hysterectomy, uterosacral vaginal vault suspension, anterior repair, Monarc sling, and cystoscopy PAST SURGICAL HISTORY OF 08/22/2019 skin ca nose removed PAST SURGICAL HISTORY OF 11/20/2019 Dr. Dickens--BCC on left side of nose in the groove REMV CATARACT EXTRACAP,INSERT LENS 03/05/2020 03/18/2020 SKIN BX, 1 LESION 08/2020 on neck- squamous cell carcinomia Family History FAMILY HISTORY Problem Relation Age of Onset Heart Father Cancer Father leukemia Hypertension Mother congestive heart failure Thyroid Mother Cataract Mother Hypertension Brother Heart Grandchild mitral valve prolapse Cataract Sister other (cerebral hem) Sister Diabetes Daughter Social History Social History Tobacco Use Smoking status: Never Smokeless tobacco: Never Vaping Use Vaping status: Never Used Substance Use Topics Alcohol use: No Drug use: No Current Medications Current Outpatient Medications Medication Sig calcium carbonate (CALTRATE) 600 mg calcium (1,500 mg) tab Take 1,200 mg by mouth once daily. omeprazole (PRILOSEC) 20 mg capsule Take 1 capsule by mouth two times a day. 1/2 HR BEFORE MEAL. nortriptyline (PAMELOR) 25 mg capsule Take 1 capsule by mouth daily at bedtime. calcitriol (ROCALTROL) 0.25 mcg capsule Take 1 capsule by mouth once daily. lisinopril-hydroCHLOROthiazide (ZESTORETIC) 20-12.5 mg per tablet Take 1 tablet by mouth two times a day. lovastatin 40 mg tablet Take 1 tablet by mouth daily at bedtime. metoprolol succinate ER (TOPROL XL) 50 mg 24 hr tablet Take 1 tablet by mouth every morning AND 0.5 tablets every afternoon. estradiol (ESTRACE) 0.01 % (0.1 mg/gram) vaginal cream Use 1 g vaginally daily at bedtime for 14 days, THEN 1 g two times a week. MINERAL OIL ORAL Take by mouth as needed (constipation). cholecalciferol (VITAMIN D3) 50 mcg (2,000 unit) tablet Take 2,000 Units by mouth once daily. polyethylene glycol 3350 (MIRALAX, GLYCOLAX) 17 gram/dose powder Take 17 g by mouth once daily. Methylcellulose, Laxative, 500 mg tab TAKE TWO TABLETS TWICE DAILY omega-3 fatty acids/vitamin e(FISH OIL 1,000 MG CAP) Take one(1) tablet daily. THERAPEUTIC MULTIVITAMIN TAB Take one(1) tablet daily. hydrOXYchloroQUINE (PLAQUENIL) 200 mg tablet Take 1 tablet by mouth once daily. Labs Latest Ref Rng & Units 07/13/2023 01/13/2024 07/12/2024 09/20/2024 CBC WBC 3.70 - 11.00 k/uL 4.98 4.72 4.69 5.84 Hemoglobin 11.5 - 15.5 g/dL 15.4 15.2 15.5 14.9 Hematocrit 36.0 - 46.0 % 44.8 44.3 45.3 43.5 Platelet Count 150 - 400 k/uL 197 172 192 168 Abs Neut (ANC) 1.45 - 7.50 k/uL 3.20 2.70 3.77 Abs Lymph 1.00 - 4.00 k/uL 0.94 0.95 0.92 Latest Ref Rng & Units 07/13/2023 01/13/2024 07/12/2024 09/20/2024 CMP Sodium 136 - 144 mmol/L 132 133 134 130 Potassium 3.7 - 5.1 mmol/L 3.9 3.7 3.5 3.8 Chloride 98 - 107 mmol/L 93 97 93 92 CO2 22 - 30 mmol/L 32 25 27 27 Glucose 74 - 99 mg/dL 100 89 101 89 BUN 7 - 21 mg/dL 16 15 18 14 Creatinine 0.58 - 0.96 mg/dL 0.81 0.80 0.84 0.74 Calcium 8.5 - 10.2 mg/dL 9.8 10.0 10.2 10.1 AST 13 - 35 U/L 20 20 23 21 ALT 7 - 38 U/L 15 11 13 12 Alkaline Phosphatase 34 - 123 U/L 51 50 54 51 Latest Ref Rng & Units 09/20/2024 Uric Acid Uric Acid 2.5 - 6.6 mg/dL 7.1 Latest Ref Rng & Units 06/26/2010 02/07/2012 06/17/2015 09/20/2024 ESR, WSR WSR 0 - 20 mm/hr 1 3 2 Sed Rate, Lisbeth 0 - 20 mm/hr 18 Latest Ref Rng & Units 02/07/2012 06/17/2015 09/20/2024 CRP CRP <0.9 mg/dL 0.3 0.3 <0.3 Latest Ref Rng & Units 02/07/2012 08/06/2013 CK CK 30 - 220 U/L 116 54 Latest Ref Rng & Units 02/07/2012 06/17/2015 09/20/2024 RF and CCP Rheumatoid Factor <16 IU/mL <7 <10 <10 CCP Antibody IgG Qualitative Negative Negative CCP Antibody, IgG <20 Units <15 <15 Latest Ref Rng & Units 10/16/2020 Hepatitis Screen Hep C Antibody IA Negative Positive Latest Ref Rng & Units 06/26/2010 02/07/2012 06/17/2015 09/20/2024 Antibodies ANNIE Negative Negative Negative ANNIE Titer Negative Negative Negative ANNIE Pattern Not applicable for negative result. Not applicable for negative result. Anti-Sm <1.0 AI <0.2 Sm Antibody Negative Negative Ribosomal CASE MANAGEMENT RN Ab <1.0 AI <0.2 Ribosomal CASE MANAGEMENT RN Qualitative Negative Negative Chromatin Ab <1.0 AI <0.2 Chromatin Ab Qual Negative Negative SSA Antibody Qual Negative Negative Anti-SSA <1.0 AI <0.2 Anti-SSB <1.0 AI <0.2 CASE MANAGEMENT RN Antibody QUAL Negative Negative Scleroderma Ab Qual Negative Negative Scl-70 Abs, EIA <1.0 AI <0.2 Centromere Ab <1.0 AI <0.2 CENTROMERE AB QUAL Negative Negative ELIDA-1 ANTIBODY, IGG <1.0 AI <0.2 ELIDA 1 ANTIBODY QUAL Negative Negative PT Sec 8.4 - 13.0 sec 11.6 PT INR 0.8 - 1.2 1.1 APTT 23.0 - 32.4 sec 29.0 Latest Ref Rng & Units 09/08/2021 09/08/2021 12/15/2021 12/15/2021 Urinalysis Protein, Urine Negative Negative Negative PROTEIN UA (POCT) Negative mg/dL Negative Negative RBC, Urine 0-3 /HPF 3-5 /HPF 3-5 /HPF Imaging Last XR Hand/Finger - Impression Only XR HAND GENERAL 3V PA/LAT/OBL BILATERAL Exam End: 09/20/2024 11:01 AM (Final result) Impression: IMPRESSION: Degenerative changes as described. Adjunct Lecturer: JUAN J Transcribe Date/Time: Sep 24 2024 11:19A... Last XR Foot / Toe - Impression Only XR FOOT GENERAL 3V AP/LAT/OBL BILATERAL Exam End: 09/20/2024 11:00 AM (Final result) Impression: IMPRESSION: 1. Moderate osteoarthropathy right first metatarsal-phalangeal joint with other mild osteoarthropathy. 2. Hallux valgus of the right great toe. 3. Slight prominence of the right Lisfranc joint space 0.4 cm. ... Last XR Chest - Impression Only No resulted procedures found. Health Maintenance Current Immunizations Reviewed on 07/20/2024 Name Date COVID-19 vaccine, bivalent (BeMyGuest-BIONTObviousidea) 06/06/2022 COVID-19 vaccine, monovalent (BeMyGuest-BIONTObviousidea) 12/10/2021, 05/10/2021, 09/24/2020, 09/01/2020 diphtheria tetanus (DT) vaccine, pediatric 07/07/2007, 04/15/1998 influenza (HD-IIV3) vaccine 05/07/2024, 05/11/2023, 04/15/2019, 04/24/2016 influenza (HD-IIV4) vaccine 04/24/2022, 05/04/2021 influenza (IIV3) vaccine 04/14/2015, 04/14/2014 influenza vaccine 05/01/2020, 04/15/2019, 04/16/2018, 04/10/2013, 04/27/2012, 04/21/2010, 05/08/2009, 05/16/2007, 06/14/2006, 06/10/2002 pneumococcal (PCV13) vaccine 06/16/2015 pneumococcal (PPV23) vaccine 07/07/2007, 03/11/2000 tetanus diphtheria pertussis (Tdap) vaccine 08/24/2018 zoster (ZVL) vaccine 05/11/2013 Physical Exam GENERAL APPEARANCE: Well groomed. Alert and oriented x 3. In no distress. VITAL SIGNS: BP 152/74 Pulse 70 Wt 159 lb (72.1kg) SpO2 99% SKIN: No rash, thickening, nodules, discoloration. No Tophi MUSCULOSKELETAL EXAMINATION: MSK/Ext: Left fifth finger PIP joint tender, no swelling; left fourth finger PIP joint mildly tender, mildly swollen; left middle finger PIP joint swollen and tender; left index finger PIP joint not tender; no significant tenderness or swelling in left MCP joints; left CMC joint squared and tender; right third finger PIP joint very swollen, warm, tender with fluid; right index finger no swelling, no tenderness; right second MCP joint mildly tender. Heberdens and bouchards nodes throughout Joint Exam 10/11/2024 Right Left MCP 2 Tender MCP 3 Tender PIP 3 (finger) Swollen Tender Swollen Tender PIP 4 (finger) Tender Swollen Tender PIP 5 (finger) Tender The following joints were examined and normal: Left CMC, Right CMC, Left MCP 1, Right MCP 1, Left MCP 2, Left MCP 3, Left MCP 4, Right MCP 4, Left MCP 5, Right MCP 5, Left IP (thumb), Right IP (thumb), Left PIP 2 (finger), Right PIP 2 (finger), Right PIP 5 (finger) Joint Exam Data (across time) 09/20/2024 10/11/2024 Joint Exam Total Tender 19 7 Total Swollen 9 3 Impression Diagnoses: (M79.641) Pain of right hand (primary encounter diagnosis) (Z79.899) Long-term use of Plaquenil (M79.89) Swelling of right middle finger # Pain of right hand (M79.641) # Swelling of right middle finger (M79.89) Radiographs reveal advanced degenerative changes at the base of the left thumb and moderate changes in the right long finger, with subluxation noted. No erosions indicative of rheumatoid arthritis were observed. Uric acid levels are slightly elevated. Exact etiology of her inflammatory arthritis is unclear. Ddx includes chronic gout, vs pseudogout, vs Seronegative RA, versus erosive OA. Prednisone provided approximately 50% improvement in pain and stiffness, but symptoms persist. Patient not willing to travel to get [employer] CT of hand for helping clarify if chronic gout is at play here. Discussed how this will help guide treatment strategy, she declines. - Referred to Dr. Brooks and YUE Kwan for orthopedic evaluation and potential joint aspiration to analyze synovial fluid for crystals and cell count. - Will empirically start Plaquenil 200 mg once daily given the erosive oa, the response to prednisone and overall relatively low risk profile; prescription sent to [facility]. - Scheduled follow-up in 3 months to assess medication tolerance and review orthopedic findings. # Long-term use of Plaquenil (Z79.899) Initiating Plaquenil therapy for suspected inflammatory arthritis - Recommend baseline OCT and visual dove testing to be performed at [facility] within the first three months of starting Plaquenil. - Patient to continue regular ophthalmologic evaluations to monitor for potential retinal toxicity. Plan Orders this visit: Office Visit on 10/11/24 CONSULT TO ORTHOPAEDICS CONSULT TO OPHTHALMOLOGY hydrOXYchloroQUINE (PLAQUENIL) 200 mg tablet - Start taking Plaquenil (hydroxychloroquine) 200 mg once daily; prescription sent to [facility]. 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 - Follow up with your eye doctor yearly for OCT and visual dove testing while on Plaquenil. - Schedule an appointment with Dr. Brooks or his PA, Bisi Kwan, for an orthopedic evaluation and possible aspiration of the swollen knuckle. - Next follow-up appointment in 3 months to assess medication tolerance and review orthopedic visit findings. Return in about 3 months (around 01/10/2025). I spent a total of 30 minutes on the date of the service which included preparing to see the patient, [id number] patient care, completing clinical documentation, obtaining and/or reviewing separately obtained history, performing a medically appropriate examination, counseling and educating the patient/family/caregiver, and ordering medications, tests, or procedures. ___ Lexis Roca PA-C Rheumatology Date: October 11, 2024 Time: 5:59 PM documented in this encounter [facility] 10-10-2024 Telephone encounter Note Checked with [facility] and they are unable to do [employer] CTs. Genesis Zuñiga, RN [facility] 10-10-2024 Miscellaneous Notes Checked with [facility] and they are unable to do [employer] CTs. Genesis Zuñiga, RN We can discuss options at our appointment tomorrow. Lexis Roca PA-C Patient was schedule for CT Scan today at 1:20 PM however the accredited pharmacy technician saw it was ordered with [employer]. Those scans can only be done at [facility], or [facility]. I contacted patient to reschedule to one of those locations and patient is unwilling to travel that far. Please advise. NORBERTO Roberts documented in this encounter [facility] 10-10-2024 Telephone encounter Note We can discuss options at our appointment tomorrow. Lexis Roca PA-C [facility] Work Phone: 10-09-2024 Telephone encounter Note Patient was schedule for CT Scan today at 1:20 PM however the accredited pharmacy technician saw it was ordered with [employer]. Those scans can only be done at [facility], or [facility]. I contacted patient to reschedule to one of those locations and patient is unwilling to travel that far. Please advise. NORBERTO Roberts [facility] 10-05-2024 Progress note Formatting of t his note might be different from the original. mammogram had benign findings, 1 year screening mammogram [facility] 10-05-2024 Miscellaneous Notes mammogram had benign findings, 1 year screening mammogram documented in this encounter [facility] 10-02-2024 Note HNO ID: [id number] Author: BYRON SUTTON APRN.CNP Service: ? Author Type: Nurse Practitioner Type: Progress Notes Filed: 10/02/2024 09:54 Note Text: SUBJECTIVE Concepcion Donaldson is a 83 year old female here today for a check up on her medical problems. Chief Complaint Patient presents with: Blood Pressure Check Shortness of Breath: upon exertion carrying items up the steps or walking to car when out shopping were a couple of examples she mentioned HPI Concepcion Donaldson is a 83 year old female. Presents for follow-up for hypertension. They are here today for a recheck of blood pressure. Blood pressure appears to be improved. Tolerating medications well. She is noticing some shortness of breath with activity. Resolves with rest. This can occur when walking with groceries or walking with the clothes basket. Prior EKG showed sinus rhythm with first degree block. Slight cough but this as just been going on with a runny nose. No chest pain or chest tightness. Prior ECHO in 2018, no valve issues, EF 60%, mild upper septal left ventricle hypertrophy. Normal stress test in 2019. Sees Dr. Pereira with [facility] heart group as needed. Seeing rheumatology, recent labs showed elevated uric acid levels. On prednisone currently. Her medications were reviewed today and her list is now up to date. Medications Current Outpatient Medications Medication Sig calcium carbonate (CALTRATE) 600 mg calcium (1,500 mg) tab Take 1,200 mg by mouth once daily. predniSONE (DELTASONE) 5 mg tablet Take 2 tablets by mouth once daily for 7 days, THEN 1 tablet once daily for 7 days. omeprazole (PRILOSEC) 20 mg capsule Take 1 capsule by mouth two times a day. 1/2 HR BEFORE MEAL. nortriptyline (PAMELOR) 25 mg capsule Take 1 capsule by mouth daily at bedtime. calcitriol (ROCALTROL) 0.25 mcg capsule Take 1 capsule by mouth once daily. lisinopril-hydroCHLOROthiazide (ZESTORETIC) 20-12.5 mg per tablet Take 1 tablet by mouth two times a day. lovastatin 40 mg tablet Take 1 tablet by mouth daily at bedtime. metoprolol succinate ER (TOPROL XL) 50 mg 24 hr tablet Take 1 tablet by mouth every morning AND 0.5 tablets every afternoon. MINERAL OIL ORAL Take by mouth as needed (constipation). cholecalciferol (VITAMIN D3) 50 mcg (2,000 unit) tablet Take 2,000 Units by mouth once daily. polyethylene glycol 3350 (MIRALAX, GLYCOLAX) 17 gram/dose powder Take 17 g by mouth once daily. Methylcellulose, Laxative, 500 mg tab TAKE TWO TABLETS TWICE DAILY omega-3 fatty acids/vitamin e(FISH OIL 1,000 MG CAP) Take one(1) tablet daily. THERAPEUTIC MULTIVITAMIN TAB Take one(1) tablet daily. estradiol (ESTRACE) 0.01 % (0.1 mg/gram) vaginal cream Use 1 g vaginally daily at bedtime for 14 days, THEN 1 g two times a week. No current facility-administered medications for this visit. ALLERGIES Allergen Reactions Fosamax [Alendronat* Intolerance Codeine Intolerance Niacin Intolerance Sulfa (Sulfonamide * Intolerance Stomach pain Vioxx [Rofecoxib] Intolerance Zyrtec [Cetirizine * Intolerance Celebrex [Celecoxib] Rash Grass Pollen scratchy throat Nitrofurantoin Jerome* Intolerance Stomach pain Penicillins Hives Sucralfate Rash Generalized red rash; itching back of neck. 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 Home BP: 138/86 Office BP: 146/74 Mixed Hyperlipidemia - 01/12/2006 Primary Osteoarthritis Involving Multiple Joints - 01/12/2006 Social History Tobacco Use Smoking status: Never Smokeless tobacco: Never Vaping Use Vaping status: Never Used Substance Use Topics Alcohol use: No Drug use: No Review of Systems Respiratory: Positive for shortness of breath. Negative for chest tightness and wheezing. Cardiovascular: Negative. OBJECTIVE BP 122/66 Pulse 80 Resp 16 Wt 159 lb 2.8 oz (72.2kg) Physical Exam Vitals and nursing note reviewed. Constitutional: General: She is awake. She is not in acute distress. Appearance: Normal appearance. She is well-developed and well-groomed. She is not ill-appearing, toxic-appearing or diaphoretic. HENT: Head: Normocephalic. Right Ear: External ear normal. Left Ear: External ear normal. Nose: Nose normal. Eyes: General: Vision grossly in (more content not included)... [facility] 10-02-2024 History of Present illness Narrative SUBJECTIVE Concepcion Donaldson is a 83 year old female here today for a check up on her medical problems. Chief Complaint Patient presents with: Blood Pressure Check Shortness of Breath: upon exertion carrying items up the steps or walking to car when out shopping were a couple of examples she mentioned HPI Concepcion Donaldson is a 83 year old female. Presents for follow-up for hypertension. They are here today for a recheck of blood pressure. Blood pressure appears to be improved. Tolerating medications well. She is noticing some shortness of breath with activity. Resolves with rest. This can occur when walking with groceries or walking with the clothes basket. Prior EKG showed sinus rhythm with first degree block. Slight cough but this as just been going on with a runny nose. No chest pain or chest tightness. Prior ECHO in 2018, no valve issues, EF 60%, mild upper septal left ventricle hypertrophy. Normal stress test in 2019. Sees Dr. Pereira with [facility] heart group as needed. Seeing rheumatology, recent labs showed elevated uric acid levels. On prednisone currently. Her medications were reviewed today and her list is now up to date. Medications Current Outpatient Medications Medication Sig calcium carbonate (CALTRATE) 600 mg calcium (1,500 mg) tab Take 1,200 mg by mouth once daily. predniSONE (DELTASONE) 5 mg tablet Take 2 tablets by mouth once daily for 7 days, THEN 1 tablet once daily for 7 days. omeprazole (PRILOSEC) 20 mg capsule Take 1 capsule by mouth two times a day. 1/2 HR BEFORE MEAL. nortriptyline (PAMELOR) 25 mg capsule Take 1 capsule by mouth daily at bedtime. calcitriol (ROCALTROL) 0.25 mcg capsule Take 1 capsule by mouth once daily. lisinopril-hydroCHLOROthiazide (ZESTORETIC) 20-12.5 mg per tablet Take 1 tablet by mouth two times a day. lovastatin 40 mg tablet Take 1 tablet by mouth daily at bedtime. metoprolol succinate ER (TOPROL XL) 50 mg 24 hr tablet Take 1 tablet by mouth every morning AND 0.5 tablets every afternoon. MINERAL OIL ORAL Take by mouth as needed (constipation). cholecalciferol (VITAMIN D3) 50 mcg (2,000 unit) tablet Take 2,000 Units by mouth once daily. polyethylene glycol 3350 (MIRALAX, GLYCOLAX) 17 gram/dose powder Take 17 g by mouth once daily. Methylcellulose, Laxative, 500 mg tab TAKE TWO TABLETS TWICE DAILY omega-3 fatty acids/vitamin e(FISH OIL 1,000 MG CAP) Take one(1) tablet daily. THERAPEUTIC MULTIVITAMIN TAB Take one(1) tablet daily. estradiol (ESTRACE) 0.01 % (0.1 mg/gram) vaginal cream Use 1 g vaginally daily at bedtime for 14 days, THEN 1 g two times a week. No current facility-administered medications for this visit. ALLERGIES Allergen Reactions Fosamax [Alendronat* Intolerance Codeine Intolerance Niacin Intolerance Sulfa (Sulfonamide * Intolerance Stomach pain Vioxx [Rofecoxib] Intolerance Zyrtec [Cetirizine * Intolerance Celebrex [Celecoxib] Rash Grass Pollen scratchy throat Nitrofurantoin Jerome* Intolerance Stomach pain Penicillins Hives Sucralfate Rash Generalized red rash; itching back of neck. 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 LIST Spinal Stenosis of Lumbar Region Without Neurogenic Claudication - 03/04/2019 Persistent Disorder of Initiating Or Maintaining Sleep - 04/26/2017 Deafness in Left Ear - 07/06/2016 Prediabetes - 11/16/2015 Multinodular Thyroid - 11/16/2015 Ddd (Degenerative Disc Disease), Cervical - 09/10/2013 Other Disorder of Coccyx - 05/05/2012 Eczema - 07/01/2011 Rectal Incontinence - 03/23/2011 Ibs (Irritable Bowel Syndrome) - 07/22/2010 Rectocele - 09/29/2009 Chronic Gerd - 07/25/2007 Active M ni re's Disease, 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 Home BP: 138/86 Office BP: 146/74 Mixed Hyperlipidemia - 01/12/2006 Primary Osteoarthritis Involving Multiple Joints - 01/12/2006 Social History Tobacco Use Smoking status: Never Smokeless tobacco: Never Vaping Use Vaping status: Never Used Substance Use Topics Alcohol use: No Drug use: No Review of Systems Respiratory: Positive for shortness of breath. Negative for chest tightness and wheezing. Cardiovascular: Negative. OBJECTIVE BP 122/66 Pulse 80 Resp 16 Wt 159 lb 2.8 oz (72.2kg) Physical Exam Vitals and nursing note reviewed. Constitutional: General: She is awake. She is not in acute distress. Appearance: Normal appearance. She is well-developed and well-groomed. She is not ill-appearing, toxic-appearing or diaphoretic. HENT: Head: Normocephalic. Right Ear: External ear normal. Left Ear: External ear normal. Nose: Nose normal. Eyes: General: Vision grossly intact. Conjunctiva/sclera: Conjunctivae normal. Pupils: Pupils are equal, round, and reactive to light. Neck: Vascular: No JVD. Trachea: Trachea normal. Cardiovascular: Rate and Rhythm: Normal rate and regular rhythm. Pulses: Normal pulses. Heart sounds: Murmur heard. Pulmonary: Effort: Pulmonary effort is normal. No accessory muscle usage, prolonged expiration or respiratory distress. Breath sounds: Normal breath sounds. Musculoskeletal: Cervical back: Neck supple. Right lower leg: No edema. Left lower leg: No edema. Skin: General: Skin is warm and dry. Capillary Refill: Capillary refill takes less than 2 seconds. Neurological: General: No focal deficit present. Mental Status: She is alert and oriented to person, place, and time. Mental status is at baseline. Psychiatric: Attention and Perception: Attention and perception normal. Mood and Affect: Mood and affect normal. Speech: Speech normal. Behavior: Behavior normal. Behavior is cooperative. Thought Content: Thought content normal. Cognition and Memory: Cognition and memory normal. Judgment: Judgment normal. ASSESSMENT/PLAN: 1. Primary hypertension - ICD9: 401.9, ICD10: I10 (primary diagnosis) - Controlled - Continue current medications - Recommend home blood pressure monitoring, to bring results to next visit - Encouraged sodium restriction, DASH or Mediterranean diet - Recommend regular aerobic exercise - ECHO - PERFLUTREN LIPID MICROSPHERES 1.1 MG/ML INJECTION IN NS 10 ML - SODIUM CHLORIDE 0.9 % (FLUSH) INJECTION SYRINGE 2. WALTERS (dyspnea on exertion) - ICD9: 786.09, ICD10: R06.09 Update ECHO given prior ECHO results and new WALTERS. - ECHO - PERFLUTREN LIPID MICROSPHERES 1.1 MG/ML INJECTION IN NS 10 ML - SODIUM CHLORIDE 0.9 % (FLUSH) INJECTION SYRINGE 3. Asymmetric hypertrophy of ventricular septum - ICD9: 429.3, ICD10: I51.7 See #2 - ECHO - PERFLUTREN LIPID MICROSPHERES 1.1 MG/ML INJECTION IN NS 10 ML - SODIUM CHLORIDE 0.9 % (FLUSH) INJECTION SYRINGE 4. Heart murmur - ICD9: 785.2, ICD10: R01.1 Update ECHO. 5. Elevated uric acid in blood - ICD9: 790.6, ICD10: E79.0 Working with rheum. Medical Decision Making: Problems: Moderate: New problem with uncertain prognosis Data: Unique test result(s) reviewed: 3+ Medical Decision Making Level: 4 - Moderate Portions of this note have been entered by ancillary staff. I have reviewed and when necessary edited, so that they are an adequate record of my encounter with this patient Please note that parts of this document were created using voice recognition software and therefore may contain grammatical errors. Patient verbalizes understanding of instructions from today's visit and in agreement with treatment plan. Questions answered. Agrees to call the office if questions, concerns of issues with acute symptoms not improving or if they worsen. See diagnoses and orders for additional plan(s). Allergies and medications were reviewed, list was updated, and refills given if needed. Past medical, surgical, social, and family history reviewed and updated as appropriate. Encouraged proper diet & exercise as well as compliance with taking medications. Age-appropriate health preventative measures were discussed. Return if symptoms worsen or fail to improve, for Keep next scheduled appointment.. Byron Sutton APRN-HEYDI documented in this encounter [facility] 09-24-2024 Progress note Formatting of t his note might be different from the original. Please call patient, X-Ray shows all osteoarthritic changes. There are no erosive changes noted. There is osteoarthritis in the base of both thumbs, worse on the left. We can discuss this more at her visit. However, given the elevated uric acid, I'd like to do a [employer] Hand CT on the Right hand given the amount of swelling in that middle finger to see if this is gout and needs a different treatment. Order has been placed. Prefer to get this done prior to our next visit. Thanks Lexis [facility] 09-24-2024 Miscellaneous Notes Please call patient, X-Ray shows all osteoarthritic changes. There are no erosive changes noted. There is osteoarthritis in the base of both thumbs, worse on the left. We can discuss this more at her visit. However, given the elevated uric acid, I'd like to do a [employer] Hand CT on the Right hand given the amount of swelling in that middle finger to see if this is gout and needs a different treatment. Order has been placed. Prefer to get this done prior to our next visit. Thanks Lexis documented in this encounter [facility] 09-21-2024 Telephone encounter Note I called and spoke with the patient. Message from provider given. Patient verbalized understanding. [facility] 09-21-2024 Miscellaneous Notes I called and spoke with the patient. Message from provider given. Patient verbalized understanding. ----- Message from Lexis Roca PA-C sent at 09/21/2024 2:31 PM EDT ----- Can you call lab client services to see if this uric acid test can be added on using her labs from yesterday? If so, great, if not, please have her go back to the lab. Also give her this message below Please call patient, Labs are relatively stable. She has chronic ow sodium and chloride. Repeat autoimmune panel is negative. Her rheumatoid labs are negative. I'm still waiting on X-Ray results. They probably will not result until next week. Please have her continue with prednisone taper, I'm also adding on uric acid lab that could help assess for gout as an alternative diagnosis. We can discuss these and Imaging in more detail at our next visit documented in this encounter [facility] 09-21-2024 Telephone encounter Note ----- Message from Lexis Roca PA-C sent at 09/21/2024 2:31 PM EDT ----- Can you call lab client services to see if this uric acid test can be added on using her labs from yesterday? If so, great, if not, please have her go back to the lab. Also give her this message below Please call patient, Labs are relatively stable. She has chronic ow sodium and chloride. Repeat autoimmune panel is negative. Her rheumatoid labs are negative. I'm still waiting on X-Ray results. They probably will not result until next week. Please have her continue with prednisone taper, I'm also adding on uric acid lab that could help assess for gout as an alternative diagnosis. We can discuss these and Imaging in more detail at our next visit [facility] 09-20-2024 Telephone encounter Note Patient notified of providers message and verbalized understanding. Patient requested Byron Sutton. Appointment was made [facility] 09-20-2024 Miscellaneous Notes Patient notified of providers message and verbalized understanding. Patient requested Byron Sutton. Appointment was made Please let her know that blood pressure was elevated at her rheumatology visit today. Check to see if she would like to come in for a recheck of her blood pressure, but endorse this in 1-2 weeks if willing. (If present addition of calcium channel gregor may help with BP and Raynauds). She also noted feeling shortness of breath, endorse checking this as well. Last 14 Encounter BP Readings: Date: BP: 09/20/2024 174/92 07/20/2024 152/82 04/24/2024 130/70 01/20/2024 144/70 07/20/2023 132/66 02/07/2023 126/60 09/14/2022 128/84 08/17/2022 158/78 06/08/2022 132/60 12/15/2021 118/78 12/01/2021 140/70 09/08/2021 146/72 07/18/2021 128/62 06/26/2021 144/80 documented in this encounter [facility] 09-20-2024 Telephone encounter Note Please let her know that blood pressure was elevated at her rheumatology visit today. Check to see if she would like to come in for a recheck of her blood pressure, but endorse this in 1-2 weeks if willing. (If present addition of calcium channel gregor may help with BP and Raynauds). She also noted feeling shortness of breath, endorse checking this as well. Last 14 Encounter BP Readings: Date: BP: 09/20/2024 174/92 07/20/2024 152/82 04/24/2024 130/70 01/20/2024 144/70 07/20/2023 132/66 02/07/2023 126/60 09/14/2022 128/84 08/17/2022 158/78 06/08/2022 132/60 12/15/2021 118/78 12/01/2021 140/70 09/08/2021 146/72 07/18/2021 128/62 06/26/2021 144/80 [facility] 09-20-2024 History of Present illness Narrative Radiology Service Progress Note PATIENT NAME: Concepcion Donaldson DATE OF SERVICE: September 20, 2024 TIME: 10:38 AM PATIENT IDENTITY VERIFICATION COMPLETED USING TWO (2) IDENTIFIERS: Name and Date of confirmed by patient verbally. FALL SCREENING: Has the patient had 2 falls in the last year or 1 fall with injury or currently using an Ambulatory Assistive Device (Walker, Cane, Wheelchair, Crutches, etc.)? No PATIENT GENDER DATA: Assigned female at . status: : No status: NO. PATIENT RELEVANT IMPLANT DATA REVIEWED: Not Applicable PATIENT PRESENTS WITH AN IMPLANTABLE OR ATTACHED EMBROIDERER: No RADIOLOGY DEPARTMENT: General X-ray: Exam(s) Completed: Lower Extremity X-Ray(s): Feet, Bilateral Upper Extremity X-Ray(s): Hand, bilateral PERIPHERAL IV DATA: Not applicable SIGNED BY: Nuno Lopez September 20, 2024 10:38 AM documented in this encounter [facility] 09-20-2024 Note HNO ID: [id number] Author: MAYURI MATTHEWS Tech Service: ? Author Type: Technologist Type: Progress Notes Filed: 09/20/2024 11:01 Note Text: Radiology Service Progress Note PATIENT NAME: Concepcion Donaldson DATE OF SERVICE: September 20, 2024 TIME: 10:38 AM PATIENT IDENTITY VERIFICATION COMPLETED USING TWO (2) IDENTIFIERS: Name and Date of confirmed by patient verbally. FALL SCREENING: Has the patient had 2 falls in the last year or 1 fall with injury or currently using an Ambulatory Assistive Device (Walker, Cane, Wheelchair, Crutches, etc.)? No PATIENT GENDER DATA: Assigned female at . status: : No status: NO. PATIENT RELEVANT IMPLANT DATA REVIEWED: Not Applicable PATIENT PRESENTS WITH AN IMPLANTABLE OR ATTACHED EMBROIDERER: No RADIOLOGY DEPARTMENT: General X-ray: Exam(s) Completed: Lower Extremity X-Ray(s): Feet, Bilateral Upper Extremity X-Ray(s): Hand, bilateral PERIPHERAL IV DATA: Not applicable SIGNED BY: Nuno Lopez September 20, 2024 10:38 AM [facility] 09-20-2024 Note HNO ID: [id number] Author: LEXIS ROCA PA-C Service: ? Author Type: Physician Pension Agent Type: Progress Notes Filed: 09/20/2024 10:51 Note Text: Rheumatology CONSULTATION Date of Service: 09/20/2024 Patient: Concepcion Donaldson Medical Record: [id number] Primary Care Physician: Preston Haney MD Last Rheumatology visit: None at [facility] Referring Provider: Elisabeth Hoff [address] [place] [id number] Concepcion Donaldson is here today at request of Elisabeth Hoff APRN.HOLISTIC NUTRITIONIST specifically for consultation of my opinion in regards to the chief complaint listed below. Correspondence will be shared today via the [facility] electronic health record or through regular mail, where applicable. History of Present Illness Concepcion Donaldson is a 83 year old White female who presents on 09/20/2024 for an in-person visit for evaluation of Joint Pain and Osteoarthritis. Concepcion reports a current pain level of 6 (Hand-Right). She describes the pain as Aching. The pain is Continuous, and has lasted for 1 Years. Interventions tried include Heat. She is currently taking prednisone. Concepcion is both RF - 9 (06/17/2015) and CCP - 13.5 (06/17/2015) negative. Her most recent ANNIE was negative (06/17/2015). 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 - started methotrexate 10 mg weekly with folic acid 2 mg and leucovorin 15 mg once weekly 04/03/24 - Synovitis in hands, shoulders, hips and intermittent synovitis in knees, ankles and feet. 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 - methotrexate was increased to 12.5 mg once weekly and folic acid 2 mg daily, and leucovorin 15 mg once weekly Per patient today: She was started on methotrexate back 03/02/24. Quit methotrexate use after diagnosed with gastric ulcer at [facility]. She thought the medication was starting to help, but she feels her hand pain has gotten worse since. Most of her pain today is in her hands. 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 The worst area of her pain is in the R R3rd PIP, as well as L 3rd PIP. Other areas of pain: chronic low back pain, Chiropractor every 5 weeks. Also does PT for the back. She has joint swelling and deformity in her hands, as well as her R great toe. Also having bilateral wrist pain. The hand pain came on gradually for years, worst over the last year. She has never taken prednisone. She had cortisone injection in her spine DDD of upper and lower, feet, shoulders, AM stiffness: not any longer than any sitting period. She notes gelling phenomenon after sitting for extended periods. Tylenol: 500 mg once daily - helps Uses arthritis Gloves. External imaging and Labs: X-ray pelvis 02/17/2024 No acute displaced fracture or dislocation. Mild degenerative changes of the hips. Chronic calcified structure in left lower quadrant. Chronic ossification inferior to the left ischial tuberosity 02/17/24 labs CBC- OK, low Ly%, High Jerome %, High EO%. CMP- hyponatremia 133 Sed rate normal 9 CRP<2.9 ANNIE negative CCP negative Rheumatoid factor negative Hepatitis B surface antigen and surface antibody nonreactive hepatitis C antibody nonreactive 03/27/24 labs CBC normal CMP low alk phos 43, hyponatremia 130, hypochloremia 97 06/03/24 labs CBC RDW CV 15.0 elevated Ly% 17.0 (low) Jerome % 12.8 (high) Immature Granulocytes 1% (high) - Left shift CMP - normal creatinine 0.8. 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 No RA, SLE, IBD, RHEUMATOLOGIC REVIEW OF SYSTEMS: Occasional ulcers in mouth , none in nose - relates to her dentures, not frequent No photosensenitivity No history of blood clots No miscarriages + fatigue - sometimes gets disoriented + history of Raynaud's - white, red blue No fevers Occasional red painful eyes - due to dryness + sicca, eyes. Occsaional dry mouth + sob with exertion and without - Not worked up much at this time (months) No cough + diarrhea, + constipation - IBS, chronic bowel incontinence + chronic back pain ? history of psoriasis per dermatology - she reports eczema and dry skin In scalp + morning stiffness- see above No weight loss + neuropathy bilateral feet, only during Raynaud's episodes Pain Evaluation 01/27/2021 07/18/2021 07/14/2023 08/19/2024 09/20/2024 Pain Evaluation Pain Score 4 6 8 4 4 6 Location Vagina Back-Lower Leg-Left Finger Hand-Right Location Comment Right medial thigh pain Description Burning Aching Aching;Numbness;Radiating;Sharp;Sh ooting;Spasm;Stiffness;Throbbing;T ightness;Tin gling Aching;Phantom;Stabbing;Stiffness Aching Duration (#) 6 (more content not included)... [facility] 09-20-2024 History of Present illness Narrative Images from the original note were not included. Rheumatology CONSULTATION Date of Service: 09/20/2024 Patient: Concepcion Donaldson Medical Record: [id number] Primary Care Physician: Preston Haney MD Last Rheumatology visit: None at [facility] Referring Provider: Elisabeth Hoff [address] [facility] [id number] Concepcion Donaldson is here today at request of Elisabeth Hoff APRN.[facility] specifically for consultation of my opinion in regards to the chief complaint listed below. Correspondence will be shared today via the [facility] electronic health record or through regular mail, where applicable. History of Present Illness Concepcion Donaldson is a 83 year old White female who presents on 09/20/2024 for an in-person visit for evaluation of Joint Pain and Osteoarthritis. Concepcion reports a current pain level of 6 (Hand-Right). She describes the pain as Aching. The pain is Continuous, and has lasted for 1 Years. Interventions tried include Heat. She is currently taking prednisone. Concepcion is both RF - 9 (06/17/2015) and CCP - 13.5 (06/17/2015) negative. Her most recent ANNIE was negative (06/17/2015). 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 - started methotrexate 10 mg weekly with folic acid 2 mg and leucovorin 15 mg once weekly 04/03/24 - Synovitis in hands, shoulders, hips and intermittent synovitis in knees, ankles and feet. 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 - methotrexate was increased to 12.5 mg once weekly and folic acid 2 mg daily, and leucovorin 15 mg once weekly Per patient today: She was started on methotrexate back 03/02/24. Quit methotrexate use after diagnosed with gastric ulcer at [facility]. She thought the medication was starting to help, but she feels her hand pain has gotten worse since. Most of her pain today is in her hands. 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 The worst area of her pain is in the R R3rd PIP, as well as L 3rd PIP. Other areas of pain: chronic low back pain, Chiropractor every 5 weeks. Also does PT for the back. She has joint swelling and deformity in her hands, as well as her R great toe. Also having bilateral wrist pain. The hand pain came on gradually for years, worst over the last year. She has never taken prednisone. She had cortisone injection in her spine DDD of upper and lower, feet, shoulders, AM stiffness: not any longer than any sitting period. She notes gelling phenomenon after sitting for extended periods. Tylenol: 500 mg once daily - helps Uses arthritis Gloves. External imaging and Labs: X-ray pelvis 02/17/2024 No acute displaced fracture or dislocation. Mild degenerative changes of the hips. Chronic calcified structure in left lower quadrant. Chronic ossification inferior to the left ischial tuberosity 02/17/24 labs CBC- OK, low Ly%, High Jerome %, High EO%. CMP- hyponatremia 133 Sed rate normal 9 CRP<2.9 ANNIE negative CCP negative Rheumatoid factor negative Hepatitis B surface antigen and surface antibody nonreactive hepatitis C antibody nonreactive 03/27/24 labs CBC normal CMP low alk phos 43, hyponatremia 130, hypochloremia 97 06/03/24 labs CBC RDW CV 15.0 elevated Ly% 17.0 (low) Jerome % 12.8 (high) Immature Granulocytes 1% (high) - Left shift CMP - normal creatinine 0.8. 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 No RA, SLE, IBD, RHEUMATOLOGIC REVIEW OF SYSTEMS: Occasional ulcers in mouth , none in nose - relates to her dentures, not frequent No photosensenitivity No history of blood clots No miscarriages + fatigue - sometimes gets disoriented + history of Raynaud's - white, red blue No fevers Occasional red painful eyes - due to dryness + sicca, eyes. Occsaional dry mouth + sob with exertion and without - Not worked up much at this time (months) No cough + diarrhea, + constipation - IBS, chronic bowel incontinence + chronic back pain ? history of psoriasis per dermatology - she reports eczema and dry skin In scalp + morning stiffness- see above No weight loss + neuropathy bilateral feet, only during Raynaud's episodes Pain Evaluation 01/27/2021 07/18/2021 07/14/2023 08/19/2024 09/20/2024 Pain Evaluation Pain Score 4 6 8 4 4 6 Location Vagina Back-Lower Leg-Left Finger Hand-Right Location Comment Right medial thigh pain Description Burning Aching Aching;Numbness;Radiating;Sharp;Sh ooting;Spasm;Stiffness;Throbbing;T ightness;Tingling Aching;Phantom;Stabbing;Stiffness Aching Duration (#) 6 1 3 1 Duration (Timeframe) Months Weeks Weeks Weeks Years Frequency Intermittent Continuous Intermittent Intermittent Continuous Intervention Medication Distractions;Heat;Positioning Heat Patient-Entered Data PROMIS Assessments 02/06/2023 07/14/2023 01/13/2024 PROMIS Global Health - (T-Scores - the mean of general population = 50. Five points is a clinically meaningful difference.) Physical T-Score 44.9 37.4 42.3 Mental T-Score 45.8 45.8 45.8 01/13/2024 07/16/2024 08/19/2024 PROMIS CAT Pain Interference PROMIS Pain Interference T-Score (range: 10 - 90) 59 (mild) PROMIS Pain Interference Percentile 18 PROMIS Adult Short Form-Global Health Score (Mental) 45.8 (Good) Incomplete 08/19/2024 PROMIS CAT Fatigue PROMIS Fatigue T-Score 55 (within normal limits) PROMIS Fatigue Percentile 31 08/19/2024 PROMIS PHYSICAL FUNCTION T-SCORE PROMIS Physical Function T-Score 39 (moderate dysfunction) Physical Function Percentile 14 RAPID 3 Oh Activities of Daily Living 09/14/2024 10:29 AM 08/19/2024 3:32 PM Dress self? Without ANY difficulty Without ANY difficulty Get in and out of bed? Without ANY difficulty Without ANY difficulty Walk outdoors? With SOME difficulty With SOME difficulty Wash and dry body? Without ANY difficulty Without ANY difficulty Get in and out of car? Without ANY difficulty Without ANY difficulty RAPID 3 Disease Activity Weighed Score Levels: 0 - 1: Near Remission 1.3 - 2.0: Low Severity 2.3 - 4.0: Moderate Severity 4.3 - 10.0: High Severity 08/19/2024 09/14/2024 RAPID-3 Weighed Score RAPID 3 Weighed Score 2.56 (Moderate severity ) 2.56 (Moderate severity ) 09/14/2024 RAPID-3 Weighed Score Percentage Change Compared to Last Score 0 Review of Systems Review of Systems CONSTITUTION: HEENT: Negative for: Nosebleeds, Mouth sores, Trouble swallowing and Dry mouth RESPIRATORY: Positive for: Shortness of breath Negative for: Cough and Pain with breathing GASTROINTESTINAL: Positive for: Heartburn Negative for: Melena, Diarrhea and Abdominal pain MUSCULOSKELETAL: Positive for: Arthralgias, Myalgias, Muscle weakness and Morning Joint Stiffness Negative for: Joint swelling NEUROLOGICAL: Positive for: Headaches, Numbness and Memory loss SKIN: Positive for: Skin changes and Nail changes Negative for: Rash and Hair loss EYES: Positive for: Eye dryness and Visual disturbance CARDIOVASCULAR: Negative for: Chest pain and Leg swelling GENITOURINARY: Negative for: Dysuria and Hematuria HEMATOLOGIC/LYMPHATIC: Negative for: Swollen glands All other reviewed and negative other than HPI. 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 Clemons Past Surgical History PAST SURGICAL HISTORY Procedure Laterality Date PRAKASH PH PLACEMENT W/O ENDOSCOPY 09/03/[address] [facility] [address] Cabello CHOLECYSTECTOMY 1982 COLONOSCOPY FLX DX W/COLLJ SPEC WHEN PFRMD 05/17/2002 Colonoscopy COLONOSCOPY FLX DX W/COLLJ SPEC WHEN PFRMD 07/18/2016 Colonoscopy COLONOSCOPY W/BIOPSY SINGLE/MULTIPLE 07/14/2010 DILATION & CURETTAGE DX&/THER NONOBSTETRIC 03/21/2001 Dilation & curettage attempted in the OR EGD TRANSORAL BIOPSY SINGLE/MULTIPLE 07/28/2007 HH, esophagitis,antral gastritis EGD TRANSORAL BIOPSY SINGLE/MULTIPLE 05/27/2008 HH, esophagits, antral gastritis ESOPHAGOGASTRODUODENOSCOPY TRANSORAL DIAGNOSTIC 07/18/2016 EGD LIG/TRNSXJ FLP TUBE ABDL/VAG APPR UNI/BI 1974 NEUROPLASTY &/TRANSPOS MEDIAN NRV CARPAL TUNNE Bilateral 2000 2001 Carpal tunnel decomp PAST SURGICAL HISTORY OF BILAT. BUNIONECTOMY PAST SURGICAL HISTORY OF Right 2003 right middle finger trigger release PAST SURGICAL HISTORY OF Right 1972 vein stripping right leg PAST SURGICAL HISTORY OF 04/17/2009 Dr. Hoff Total vaginal hysterectomy, uterosacral vaginal vault suspension, anterior repair, Monarc sling, and cystoscopy PAST SURGICAL HISTORY OF 08/22/2019 skin ca nose removed PAST SURGICAL HISTORY OF 11/20/2019 Dr. Dickens--BCC on left side of nose in the groove REMV CATARACT EXTRACAP,INSERT LENS 03/05/2020 03/18/2020 SKIN BX, 1 LESION 08/2020 on neck- squamous cell carcinomia Family History FAMILY HISTORY Problem Relation Age of Onset Heart Father Cancer Father leukemia Hypertension Mother congestive heart failure Thyroid Mother Cataract Mother Hypertension Brother Heart Grandchild mitral valve prolapse Cataract Sister other (cerebral hem) Sister Diabetes Daughter Social History Social History Tobacco Use Smoking status: Never Smokeless tobacco: Never Vaping Use Vaping status: Never Used Substance Use Topics Alcohol use: No Drug use: No Current Medications Current Outpatient Medications Medication Sig omeprazole (PRILOSEC) 20 mg capsule Take 1 capsule by mouth two times a day. 1/2 HR BEFORE MEAL. nortriptyline (PAMELOR) 25 mg capsule Take 1 capsule by mouth daily at bedtime. calcitriol (ROCALTROL) 0.25 mcg capsule Take 1 capsule by mouth once daily. lisinopril-hydroCHLOROthiazide (ZESTORETIC) 20-12.5 mg per tablet Take 1 tablet by mouth two times a day. lovastatin 40 mg tablet Take 1 tablet by mouth daily at bedtime. metoprolol succinate ER (TOPROL XL) 50 mg 24 hr tablet Take 1 tablet by mouth every morning AND 0.5 tablets every afternoon. estradiol (ESTRACE) 0.01 % (0.1 mg/gram) vaginal cream Use 1 g vaginally daily at bedtime for 14 days, THEN 1 g two times a week. MINERAL OIL ORAL Take by mouth as needed (constipation). cholecalciferol (VITAMIN D3) 50 mcg (2,000 unit) tablet Take 2,000 Units by mouth once daily. polyethylene glycol 3350 (MIRALAX, GLYCOLAX) 17 gram/dose powder Take 17 g by mouth once daily. Methylcellulose, Laxative, 500 mg tab TAKE TWO TABLETS TWICE DAILY omega-3 fatty acids/vitamin e(FISH OIL 1,000 MG CAP) Take one(1) tablet daily. THERAPEUTIC MULTIVITAMIN TAB Take one(1) tablet daily. predniSONE (DELTASONE) 5 mg tablet Take 2 tablets by mouth once daily for 7 days, THEN 1 tablet once daily for 7 days. aspirin, enteric coated (ASPIRIN, ENTERIC COATED) 81 mg EC tablet Take 1 tablet by mouth once daily. (Patient not taking: Reported on 07/20/2024) Labs Latest Ref Rng & Units 01/31/2023 07/13/2023 01/13/2024 07/12/2024 CBC WBC 3.70 - 11.00 k/uL 4.37 4.98 4.72 4.69 Hemoglobin 11.5 - 15.5 g/dL 15.3 15.4 15.2 15.5 Hematocrit 36.0 - 46.0 % 45.2 44.8 44.3 45.3 Platelet Count 150 - 400 k/uL 170 197 172 192 Abs Neut (ANC) 1.45 - 7.50 k/uL 2.70 3.20 2.70 Abs Lymph 1.00 - 4.00 k/uL 0.81 0.94 0.95 Latest Ref Rng & Units 01/31/2023 07/13/2023 01/13/2024 07/12/2024 CMP Sodium 136 - 144 mmol/L 133 132 133 134 Potassium 3.7 - 5.1 mmol/L 3.8 3.9 3.7 3.5 Chloride 98 - 107 mmol/L 96 93 97 93 CO2 22 - 30 mmol/L 26 32 25 27 Glucose 74 - 99 mg/dL 101 100 89 101 BUN 7 - 21 mg/dL 14 16 15 18 Creatinine 0.58 - 0.96 mg/dL 0.94 0.81 0.80 0.84 Calcium 8.5 - 10.2 mg/dL 9.7 9.8 10.0 10.2 AST 13 - 35 U/L 23 20 20 23 ALT 7 - 38 U/L 12 15 11 13 Alkaline Phosphatase 34 - 123 U/L 48 51 50 54 Latest Ref Rng & Units 06/26/2010 02/07/2012 06/17/2015 ESR, WSR WSR 0 - 15 mm/hr 1 3 Sed Rate, Lisbeth 0 - 20 mm/hr 18 Latest Ref Rng & Units 02/07/2012 06/17/2015 CRP CRP 0.0 - 1.0 mg/dL 0.3 0.3 Latest Ref Rng & Units 02/07/2012 08/06/2013 CK CK 30 - 220 U/L 116 54 Latest Ref Rng & Units 02/07/2012 06/17/2015 RF and CCP Rheumatoid Factor <20 IU/mL <7 <10 CCP Antibody, IgG <20 Units <15 Latest Ref Rng & Units 10/16/2020 Hepatitis Screen Hep C Antibody IA Negative Positive Latest Ref Rng & Units 06/26/2010 02/07/2012 06/17/2015 Antibodies ANNIE Negative Negative Negative ANNIE Titer Negative Negative Negative ANNIE Pattern Not applicable for negative result. Not applicable for negative result. PT Sec 8.4 - 13.0 sec 11.6 PT INR 0.8 - 1.2 1.1 APTT 23.0 - 32.4 sec 29.0 Latest Ref Rng & Units 09/08/2021 09/08/2021 12/15/2021 12/15/2021 Urinalysis Protein, Urine Negative Negative Negative PROTEIN UA (POCT) Negative mg/dL Negative Negative RBC, Urine 0-3 /HPF 3-5 /HPF 3-5 /HPF Imaging Last XR Chest - Impression Only No resulted procedures found. Health Maintenance Current Immunizations Reviewed on 07/20/2024 Name Date COVID-19 vaccine, bivalent (PFIZER-BIONTECH) 06/06/2022 COVID-19 vaccine, monovalent (PFIZER-BIONTECH) 12/10/2021, 05/10/2021, 09/24/2020, 09/01/2020 diphtheria tetanus (DT) vaccine, pediatric 07/07/2007, 04/15/1998 influenza (HD-IIV3) vaccine 05/07/2024, 05/11/2023, 04/15/2019, 04/24/2016 influenza (HD-IIV4) vaccine 04/24/2022, 05/04/2021 influenza (IIV3) vaccine 04/14/2015, 04/14/2014 influenza vaccine 05/01/2020, 04/15/2019, 04/16/2018, 04/10/2013, 04/27/2012, 04/21/2010, 05/08/2009, 05/16/2007, 06/14/2006, 06/10/2002 pneumococcal (PCV13) vaccine 06/16/2015 pneumococcal (PPV23) vaccine 07/07/2007, 03/11/2000 tetanus diphtheria pertussis (Tdap) vaccine 08/24/2018 zoster (ZVL) vaccine 05/11/2013 Physical Exam GENERAL APPEARANCE: Well groomed. Alert and oriented x 3. In no distress. VITAL SIGNS: BP 174/92 Pulse 71 Wt 160 lb (72.6kg) SpO2 95% Physical Exam SKIN: Age related skin findings, no Skin thickening, no malar rash EYES: PERRL, EOMI NECK: No mass or asymmetry. NEUROLOGIC: Sensory exam normal. MUSCULOSKELETAL EXAMINATION: Soft tissue tender points: low back paraspinal region, cervical paraspinal region, Right greater trochanteric region Motor exam: Normal 5+/5+ muscle strength. Normal bulk and tone. Spine: Cervical spine: No visible abnormalities. Full ROM. Positive tenderness to palpation over cervical spine and paraspinal muscles Thoracic spine: No visible abnormalities. No tenderness to palpation. Mild kyphosis Lumbar spine: Tenderness to palpation in lumbar spine and paraspinal muscles. SI Joints: + SI Tenderness bilaterally Upper extremities: Shoulders: Full ROM in all dove, no tenderness to palpation. No swelling or effusion. Wrists: Painful flexion extension bilaterally. Positive swelling and synovitis on the left dorsum. Hands: R hand with significant deformity in R 3rd PIP with definite synovitis, tenderness. Also with tenderness, and swelling in multiple PIP joints. See below joint exam. Unable to make full tight fist. With definite Heberden's and Nat's nodes bilaterally as well. Lower extremities: Hips: Tenderness to palpation over right greater trochanter Knees: Full ROM in flexion and extension. Positive crepitus bilaterally. No swelling or effusion. Medial joint margin tenderness bilaterally Ankles: Full ROM in all dove. Tenderness to bilateral joint lines, with synovial thickening. No tenderness to palpation of Achilles Tendon. Feet: Bunion deformity worse right versus left. Tenderness throughout right MTP joints no obvious synovitis. Negative MTP squeeze bilaterally. Joint Exam 09/20/2024 Right Left Wrist Tender Swollen Tender MCP 2 Tender Tender MCP 3 Tender Tender MCP 4 Tender Tender MCP 5 Tender Tender PIP 2 (finger) Swollen Tender Swollen Tender PIP 3 (finger) Swollen Tender Swollen Tender PIP 4 (finger) Swollen Tender Swollen Tender PIP 5 (finger) Swollen Swollen Tender Knee Tender Tender Ankle Swollen Tender Swollen Tender MTP 1 Tender Tender MTP 2 Tender Tender MTP 3 Tender Tender MTP 4 Tender Tender MTP 5 Tender Tender The following joints were examined and normal: Left Glenohumeral, Right Glenohumeral, Left Elbow, Right Elbow Joint Exam Data (across time) 09/20/2024 Joint Exam Total Tender 19 Total Swollen 9 Impression Diagnoses: (M79.641, M79.642) Bilateral hand pain (primary encounter diagnosis) (M15.0) 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 Also with chronic low back pain and gelling phenomenon. Previously she was diagnosed with inflammatory arthritis/seronegative rheumatoid arthritis by local [facility]. Prior lab testing from February 17, 2024 negative for ANNIE, CCP, rheumatoid factor. Also with negative hep B and C screening. Previously treated with methotrexate pills, max dose 12.5 mg. However developed gastric ulcer in the gastric body, and gastroenterology felt it could have been related to methotrexate use. Patient stopped the methotrexate on her own. She feels she did have some benefit while on it, however has worsened since stopping it. On exam today she has definite osteoarthritis in the hands, however she does have definite synovitis especially in right third PIP joint. She is unable to make fist with bilateral hands. It does seem likely she has inflammatory arthritis, she has no other spondyloarthritis characteristics. 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 She has not had acute flares consistent with crystalline etiology. She has not had any recent imaging of her hands. I would like to repeat imaging to assess for evidence of erosive disease. Also with history of triphasic Raynaud's, she manages the symptoms with conservative measures. It does not seem there is indication to start calcium channel gregor today, however her blood pressure was significantly elevated, if it remains elevated she may benefit using calcium channel gregor. Will notify primary care team of elevated blood pressure today. She also mentions intermittent shortness of breath, recommend follow-up with primary care team for this. Plan Orders this visit: Office Visit on 09/20/24 XR HAND GENERAL 3V PA/LAT/OBL BILATERAL XR FOOT GENERAL 3V AP/LAT/OBL BILATERAL ANTI BRENDA ID RHEUMATOID FACTOR CCP ANTIBODY IGG SEDIMENTATION RATE, WESTERGREN C-REACTIVE PROTEIN COMPLETE BLOOD COUNT AND DIFFERENTIAL COMPREHENSIVE METABOLIC PANEL CONSULT TO RHEUM/IMMUN DISEASE predniSONE (DELTASONE) 5 mg tablet X-rays of hands and feet bilateral Repeat serologies today, as well as basic lab monitoring Consider SC methotrexate vs plaquenil Short course prednisone taper - patient asked to monitor her symptom response to treatment. Follow up with PCP office for elevated BP and shortness of breath. Follow up 2 weeks to review results, response to prednisone, and discuss care home treatment choice. Will Notify PCP of Elevated BP and Shortness of breath via Epic Communication I spent a total of 65 minutes on the date of the service which included preparing to see the patient, [id number] patient care, completing clinical documentation, obtaining and/or reviewing separately obtained history, performing a medically appropriate examination, counseling and educating the patient/family/caregiver, and ordering medications, tests, or procedures. 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 - started methotrexate 10 mg weekly with folic acid 2 mg and leucovorin 15 mg once weekly 04/03/24 - Synovitis in hands, shoulders, hips and intermittent synovitis in knees, ankles and feet. 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 - methotrexate was increased to 12.5 mg once weekly and folic acid 2 mg daily, and leucovorin 15 mg once weekly X-ray pelvis 02/17/2024 No acute displaced fracture or dislocation. Mild degenerative changes of the hips. Chronic calcified structure in left lower quadrant. Chronic ossification inferior to the left ischial tuberosity 02/17/24 labs CBC- OK, low Ly%, High Jerome %, High EO%. CMP- hyponatremia 133 Sed rate normal 9 CRP<2.9 ANNIE negative CCP negative Rheumatoid factor negative Hepatitis B surface antigen and surface antibody nonreactive hepatitis C antibody nonreactive 03/27/24 labs CBC normal CMP low alk phos 43, hyponatremia 130, hypochloremia 97 06/03/24 labs CBC RDW CV 15.0 elevated Ly% 17.0 (low) Jerome % 12.8 (high) Immature Granulocytes 1% (high) - Left shift CMP - normal creatinine 0.8. 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 - started methotrexate 10 mg weekly with folic acid 2 mg and leucovorin 15 mg once weekly 04/03/24 - Synovitis in hands, shoulders, hips and intermittent synovitis in knees, ankles and feet. 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 - methotrexate was increased to 12.5 mg once weekly and folic acid 2 mg daily, and leucovorin 15 mg once weekly X-ray pelvis 02/17/2024 No acute displaced fracture or dislocation. Mild degenerative changes of the hips. Chronic calcified structure in left lower quadrant. Chronic ossification inferior to the left ischial tuberosity 02/17/24 labs CBC- OK, low Ly%, High Jerome %, High EO%. CMP- hyponatremia 133 Sed rate normal 9 CRP<2.9 ANNIE negative CCP negative Rheumatoid factor negative Hepatitis B surface antigen and surface antibody nonreactive hepatitis C antibody nonreactive 03/27/24 labs CBC normal CMP low alk phos 43, hyponatremia 130, hypochloremia 97 06/03/24 labs CBC RDW CV 15.0 elevated Ly% 17.0 (low) Jerome % 12.8 (high) Immature Granulocytes 1% (high) - Left shift CMP - normal creatinine 0.8. Elevated BUN/creatinine ratio 21.6 hyponatremia 128 hypochloremia 93 documented in this encounter [facility] 08-21-2024 History of Present illness Narrative Radiology Service Progress Note PATIENT NAME: Concepcion Donaldson DATE OF SERVICE: August 21, 2024 TIME: 9:36 AM PATIENT IDENTITY VERIFICATION COMPLETED USING TWO (2) IDENTIFIERS: Name and Date of confirmed by patient verbally. FALL SCREENING: Has the patient had 2 falls in the last year or 1 fall with injury or currently using an Ambulatory Assistive Device (Walker, Cane, Wheelchair, Crutches, etc.)? No PATIENT GENDER DATA: Assigned female at . status: : No status: NO. PATIENT RELEVANT IMPLANT DATA REVIEWED: Not Applicable PATIENT PRESENTS WITH AN IMPLANTABLE OR ATTACHED EMBROIDERER: No RADIOLOGY DEPARTMENT: Mammography PERIPHERAL IV DATA: Not applicable SIGNED BY: Gali Iglesias August 21, 2024 9:36 AM documented in this encounter [facility] 08-21-2024 Note HNO ID: [id number] Author: SURENDRA MORALES Mammo Tech Service: ? Author Type: Technologist Type: Progress Notes Filed: 08/21/2024 09:36 Note Text: Radiology Service Progress Note PATIENT NAME: Concepcion Donaldson DATE OF SERVICE: August 21, 2024 TIME: 9:36 AM PATIENT IDENTITY VERIFICATION COMPLETED USING TWO (2) IDENTIFIERS: Name and Date of confirmed by patient verbally. FALL SCREENING: Has the patient had 2 falls in the last year or 1 fall with injury or currently using an Ambulatory Assistive Device (Walker, Cane, Wheelchair, Crutches, etc.)? No PATIENT GENDER DATA: Assigned female at . status: : No status: NO. PATIENT RELEVANT IMPLANT DATA REVIEWED: Not Applicable PATIENT PRESENTS WITH AN IMPLANTABLE OR ATTACHED EMBROIDERER: No RADIOLOGY DEPARTMENT: Mammography PERIPHERAL IV DATA: Not applicable SIGNED BY: Gali Iglesias August 21, 2024 9:36 AM [facility] 08-20-2024 Telephone encounter Note Records received via fax from Dr. Madrid's office. In folder for review. [facility] 08-20-2024 Miscellaneous Notes Records received via fax from Dr. Madrid's office. In folder for review. I called and spoke with scheduling desk at Dr. Madrid's office. They will fax records over. Labs were printed from [facility]. Jarek's office is closed on ----- Message from Lexis Roca APRN.[employer] CLERK sent at 08/16/2024 3:40 PM EST ----- This patient was seeing Dr. Madrid at [facility]. Scheduled next week. Can we request records? Thanks Lexis documented in this encounter [facility] 08-17-2024 Telephone encounter Note I called and spoke with scheduling desk at Dr. Madrid's office. They will fax records over. Labs were printed from [facility]. [facility] 08-16-2024 Telephone encounter Note Jarek's office is closed on [address] [facility] 08-16-2024 Telephone encounter Note ----- Message from Lexis Roca APRN.[employer] CLERK sent at 08/16/2024 3:40 PM EST ----- This patient was seeing Dr. Madrid at [facility]. Scheduled next week. Can we request records? Thanks Lexis [facility] 08-10-2024 Telephone encounter Note The following approved medication requests have been transmitted electronically. Requested Prescriptions Signed Prescriptions Disp Refills omeprazole (PRILOSEC) 20 mg capsule 180 capsule 3 Sig: Take 1 capsule by mouth two times a day. 1/2 HR BEFORE MEAL. Authorizing Provider: PRESTON HANEY MD [facility] 08-10-2024 Miscellaneous Notes The following approved medication requests have been transmitted electronically. Requested Prescriptions Signed Prescriptions Disp Refills omeprazole (PRILOSEC) 20 mg capsule 180 capsule 3 Sig: Take 1 capsule by mouth two times a day. 1/2 HR BEFORE MEAL. Authorizing Provider: PRESTON HANEY MD PA completed and approved for omeprazole 20mg one twice daily. PA approved from 08/10/24 to 08/10/2025. Pt will need new rx for either dose. Concepcion is calling Preston Haney MD today to request a prior authorization for the Omeprazole of 20 mg capsule taking two per day Per patient they will cover the 40 mg time release without a prior authorization Please send a PA for the 20 mg taking one by mouth two times a day if provider would like to keep that strength. Patient advised they will be sending a fax to our office to advise of this request Patient has been identified by name and birthdate. Duration of symptoms: ongoing Person calling: self Call patient at: at home [phone] (home) [phone] (cell) Was an appointment scheduled: No Closing statement: Prior Authorization Calls: Thank you for calling [facility], your call will be returned within the next 24 hours or next business day. Kaci Lopez documented in this encounter [facility] 08-10-2024 Telephone encounter Note PA completed and approved for omeprazole 20mg one twice daily. PA approved from 08/10/24 to 08/10/2025. [facility] 08-06-2024 Telephone encounter Note Pt will need new rx for either dose. [facility] 08-06-2024 Telephone encounter Note Concepcion is calling Preston Haney MD today to request a prior authorization for the Omeprazole of 20 mg capsule taking two per day Per patient they will cover the 40 mg time release without a prior authorization Please send a PA for the 20 mg taking one by mouth two times a day if provider would like to keep that strength. Patient advised they will be sending a fax to our office to advise of this request Patient has been identified by name and birthdate. Duration of symptoms: ongoing Person calling: self Call patient at: at home [phone] (home) [phone] (cell) Was an appointment scheduled: No Closing statement: Prior Authorization Calls: Thank you for calling [facility], your call will be returned within the next 24 hours or next business day. Kaci Lopez [facility] 07-25-2024 Telephone encounter Note Prescription Refill Information The patient has been identified by name and date of : Yes Caregiver verified no other encounters exist for this prescription request: Yes Caregiver confirmed with patient/requestor that no other refills are due, in the near future, with this provider at this time: Yes The last office visit in the department: 07-20-24 Does the patient have a future office visit with this provider/department: Yes Requested Prescriptions Pending Prescriptions Disp Refills omeprazole (PRILOSEC) 20 mg capsule 180 capsule 3 Sig: Take 1 capsule by mouth two times a day. 1/2 HR BEFORE MEAL. Maral Santo July 25, 2024 10:54 AM [facility] 07-25-2024 Miscellaneous Notes Prescription Refill Information The patient has been identified by name and date of : Yes Caregiver verified no other encounters exist for this prescription request: Yes Caregiver confirmed with patient/requestor that no other refills are due, in the near future, with this provider at this time: Yes The last office visit in the department: 07-20-24 Does the patient have a future office visit with this provider/department: Yes Requested Prescriptions Pending Prescriptions Disp Refills omeprazole (PRILOSEC) 20 mg capsule 180 capsule 3 Sig: Take 1 capsule by mouth two times a day. 1/2 HR BEFORE MEAL. Maral Santo July 25, 2024 10:54 AM documented in this encounter [facility] 07-20-2024 Telephone encounter Note Patient notified of providers message and verbalized understanding. [facility] 07-20-2024 Miscellaneous Notes Patient notified of providers message and verbalized understanding. SHAKA contreras with Preston Haney MD. Order filed. Patient will need an order placed for a consult to rheumatology, new provider starting in [place] by the end of the month and they would like to see her. Please contact patient when order is place so they can schedule. Thank you, Merlyn Pires documented in this encounter [facility] 07-20-2024 Telephone encounter Note SHAKA contreras with Preston Haney MD. Order filed. [facility] 07-20-2024 Telephone encounter Note Patient will need an order placed for a consult to rheumatology, new provider starting in [place] by the end of the month and they would like to see her. Please contact patient when order is place so they can schedule. Thank you, Merlyn Pires [facility] 07-20-2024 Instructions Preston Haney MD - 07/20/2024 11:48 AM EST - Discontinue Sucralfate due to allergic reaction. - Apply Triamcinolone Acetonide 0.1% cream twice daily for 2 weeks, then 1 week off, and repeat as needed for rash. - Take Nortriptyline 25 mg at bedtime; prescription sent to [facility]. - Refills for Ropinirole, Lisinopril HCTZ, Lovastatin, and Metoprolol sent to [facility]. - Increase intake of omega-3 oils (e.g., walnuts, edamame, ground flaxseed, fish) to help lower triglycerides and reduce inflammation. - Ensure adequate salt and potassium intake to maintain electrolyte balance. - Drink sufficient water and consume fruits and vegetables to support overall health. - Next mammogram scheduled after August 20. - Follow-up appointment in 6 months; lab orders for 5 months from now to be completed before the next checkup. documented in this encounter [facility] 07-20-2024 Note HNO ID: [id number] Author: PRESTON HANEY MD Service: ? Author Type: Physician Type: Progress Notes Filed: 08/19/2024 01:21 Note Text: This note was created using Cyzoneriter. Subjective Concepcion Donaldson is a 83 year old female. Patient presents with: F/U 6 months: Labs prior SUBJECTIVE: Concepcion Donaldson is a 83 year old year old lady here today for 6 month follow up appointment for review of medical conditions. Concepcion Donaldson is an 83-year-old female with a history of arthritis and peptic ulcer, presenting for a regular 6-month follow-up. Concepcion reports ongoing issues with arthritis and a peptic ulcer. She notes that her arthritis and ulcer are separate issues and not related to her medication use. She was previously prescribed sucralfate for her ulcer, which she discontinued due to a drug eruption. She was evaluated by a securities sales associate, who diagnosed the rash as a drug eruption secondary to sucralfate and prescribed triamcinolone acetonide 0.1% cream to be applied twice daily for 2 weeks, followed by 1 week off, and to repeat as needed. Concepcion reports the rash is located across her middle back, neck, and under her arms. She notes that the rash on her back and neck is pruritic, but the rash under her arms is not. She denies any history of psoriasis. She also mentions having a sebaceous cyst removed from her back. Concepcion reports that her arthritis symptoms were improving with methotrexate, but she discontinued the medication due to insurance issues. She expresses frustration with her insurance company, stating that they required additional information for the prescription, which was not provided. She is currently not taking any medication for her arthritis. Concepcion also reports issues with bowel movements, stating that her bowels are not moving as they should since her last colonoscopy. She notes that she is experiencing leakage and is using a lot of toilet paper and wipes. She is currently taking flaxseed and alphonso seed in her oatmeal and is using Miralax nightly. She denies any issues with constipation. Concepcion also reports a recent onset of a cough and rhinorrhea. She notes that the cough is worse in the morning and is associated with a runny nose. She denies any other symptoms. Concepcion is currently taking the following medications: nortriptyline 25 mg at bedtime, metoprolol, lisinopril HCTZ, lovastatin, and Estrace topical. She denies taking folic acid, leucovorin, or methotrexate. She also denies taking amitriptyline. Concepcion has a history of sciatica and is currently receiving treatment at a spine center in [place]. She reports that her symptoms are improving with physical therapy and chiropractic adjustments. She is using a back support when lifting and notes that it makes a big difference. Concepcion has a family history of diabetes, with her daughter and granddaughter both being diabetic. She reports that she is trying to watch her carbohydrate intake and is using omega-3 oils to help keep her triglycerides down. She denies any issues with her current diet. Concepcion has a DNR in place and is currently reviewing her will. She expresses concern about her DNR status and is unsure if it is still valid. She also reports that she is taking a baby aspirin 81 mg daily and is unsure if she should continue taking it due to her peptic ulcer. She denies any issues with her current medications. 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 Clemons Current Outpatient Medications Medication Sig estradiol (ESTRACE) 0.01 % (0.1 mg/gram) vaginal cream Use 1 g vaginally daily at bedtime for 14 days, THEN 1 g two times a week. omeprazole (PRILOSEC) 20 mg capsule Take 1 capsule by mouth two times a day. 1/2 HR BEFORE MEAL. MINERAL OIL ORAL Take by mouth as needed (constipation). cholecalciferol (VITAMIN D3) 50 mcg (2,000 unit) tablet Take 2,000 Units by mouth once daily. polyethylene glycol 3350 (MIRALAX, GLYCOLAX) 17 gram/dose powder Take 17 g by mouth once daily. Methylcellulose, Laxative, 500 mg tab TAKE TWO TABLETS TWICE DAILY omega-3 fatty acids/vitamin e(FISH OIL 1,000 MG CAP) Take one(1) tablet daily. THERAPEUTIC MULTIVITAMIN TAB Take one(1) tablet daily. nortriptyline (PAMELOR) 25 mg capsule Take 1 capsule by mouth daily at bedtime. calcitriol (ROCALTROL) 0.25 mcg capsule Take 1 capsule by mouth once daily. lisinopril-hydroCHLOROthiazide (ZESTORETIC) (more content not included)... [facility] 07-20-2024 History of Present illness Narrative This note was created using Earthineer. Subjective Concepcion Donaldson is a 83 year old female. Patient presents with: F/U 6 months: Labs prior SUBJECTIVE: Concepcion Donaldson is a 83 year old year old lady here today for 6 month follow up appointment for review of medical conditions. Concepcion Donaldson is an 83-year-old female with a history of arthritis and peptic ulcer, presenting for a regular 6-month follow-up. Concepcion reports ongoing issues with arthritis and a peptic ulcer. She notes that her arthritis and ulcer are separate issues and not related to her medication use. She was previously prescribed sucralfate for her ulcer, which she discontinued due to a drug eruption. She was evaluated by a securities sales associate, who diagnosed the rash as a drug eruption secondary to sucralfate and prescribed triamcinolone acetonide 0.1% cream to be applied twice daily for 2 weeks, followed by 1 week off, and to repeat as needed. Concepcion reports the rash is located across her middle back, neck, and under her arms. She notes that the rash on her back and neck is pruritic, but the rash under her arms is not. She denies any history of psoriasis. She also mentions having a sebaceous cyst removed from her back. Concepcion reports that her arthritis symptoms were improving with methotrexate, but she discontinued the medication due to insurance issues. She expresses frustration with her insurance company, stating that they required additional information for the prescription, which was not provided. She is currently not taking any medication for her arthritis. Concepcion also reports issues with bowel movements, stating that her bowels are not moving as they should since her last colonoscopy. She notes that she is experiencing leakage and is using a lot of toilet paper and wipes. She is currently taking flaxseed and alphonso seed in her oatmeal and is using Miralax nightly. She denies any issues with constipation. Concepcion also reports a recent onset of a cough and rhinorrhea. She notes that the cough is worse in the morning and is associated with a runny nose. She denies any other symptoms. Concepcion is currently taking the following medications: nortriptyline 25 mg at bedtime, metoprolol, lisinopril HCTZ, lovastatin, and Estrace topical. She denies taking folic acid, leucovorin, or methotrexate. She also denies taking amitriptyline. Concepcion has a history of sciatica and is currently receiving treatment at a spine center in [place]. She reports that her symptoms are improving with physical therapy and chiropractic adjustments. She is using a back support when lifting and notes that it makes a big difference. Concepcion has a family history of diabetes, with her daughter and granddaughter both being diabetic. She reports that she is trying to watch her carbohydrate intake and is using omega-3 oils to help keep her triglycerides down. She denies any issues with her current diet. Concepcion has a DNR in place and is currently reviewing her will. She expresses concern about her DNR status and is unsure if it is still valid. She also reports that she is taking a baby aspirin 81 mg daily and is unsure if she should continue taking it due to her peptic ulcer. She denies any issues with her current medications. 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 Clemons Current Outpatient Medications Medication Sig estradiol (ESTRACE) 0.01 % (0.1 mg/gram) vaginal cream Use 1 g vaginally daily at bedtime for 14 days, THEN 1 g two times a week. omeprazole (PRILOSEC) 20 mg capsule Take 1 capsule by mouth two times a day. 1/2 HR BEFORE MEAL. MINERAL OIL ORAL Take by mouth as needed (constipation). cholecalciferol (VITAMIN D3) 50 mcg (2,000 unit) tablet Take 2,000 Units by mouth once daily. polyethylene glycol 3350 (MIRALAX, GLYCOLAX) 17 gram/dose powder Take 17 g by mouth once daily. Methylcellulose, Laxative, 500 mg tab TAKE TWO TABLETS TWICE DAILY omega-3 fatty acids/vitamin e(FISH OIL 1,000 MG CAP) Take one(1) tablet daily. THERAPEUTIC MULTIVITAMIN TAB Take one(1) tablet daily. nortriptyline (PAMELOR) 25 mg capsule Take 1 capsule by mouth daily at bedtime. calcitriol (ROCALTROL) 0.25 mcg capsule Take 1 capsule by mouth once daily. lisinopril-hydroCHLOROthiazide (ZESTORETIC) 20-12.5 mg per tablet Take 1 tablet by mouth two times a day. lovastatin 40 mg tablet Take 1 tablet by mouth daily at bedtime. metoprolol succinate ER (TOPROL XL) 50 mg 24 hr tablet Take 1 tablet by mouth every morning AND 0.5 tablets every afternoon. omeprazole (PRILOSEC) 20 mg capsule Take 1 capsule by mouth two times a day. 1/2 HR BEFORE MEAL. (Patient not taking: Reported on 07/20/2024) aspirin, enteric coated (ASPIRIN, ENTERIC COATED) 81 mg EC tablet Take 1 tablet by mouth once daily. (Patient not taking: Reported on 07/20/2024) No current facility-administered medications for this visit. Review of Systems Objective BP 152/82 Pulse 77 Temp 36.2 C (97.2 F) Resp 16 Wt 71.4 kg (157 lb 6.5 oz) SpO2 96% BMI 27.66 kg/m Physical Exam Constitutional: Appearance: Normal appearance. HENT: Head: Normocephalic. Eyes: Conjunctiva/sclera: Conjunctivae normal. Cardiovascular: Rate and Rhythm: Normal rate and regular rhythm. Heart sounds: Normal heart sounds. Pulmonary: Effort: Pulmonary effort is normal. Breath sounds: Normal breath sounds. Musculoskeletal: Right hand: Deformity present. Decreased range of motion. Left hand: Deformity present. Decreased range of motion. Abnormal pulse: OA changes especially right hand. Right lower le+ Pitting Edema present. Left lower le+ Pitting Edema present. Skin: General: Skin is warm and dry. Neurological: General: No focal deficit present. Mental Status: She is alert and oriented to person, place, and time. Psychiatric: Mood and Affect: Mood normal. Behavior: Behavior normal. Thought Content: Thought content normal. Judgment: Judgment normal. Latest Ref Rng 07/13/2023 01/13/2024 07/12/2024 WBC 3.70 - 11.00 k/uL 4.98 4.72 4.69 RBC 3.90 - 5.20 m/uL 5.26 (H) 5.24 (H) 5.24 (H) Hemoglobin 11.5 - 15.5 g/dL 15.4 15.2 15.5 Hematocrit 36.0 - 46.0 % 44.8 44.3 45.3 MCV 80.0 - 100.0 fL 85.2 84.5 86.5 MCH 26.0 - 34.0 pg 29.3 29.0 29.6 MCHC 30.5 - 36.0 g/dL 34.4 34.3 34.2 RDW-CV 11.5 - 15.0 % 13.1 13.3 13.2 Platelet Count 150 - 400 k/uL 197 172 192 MPV 9.0 - 12.7 fL 10.3 10.8 10.4 Neut% % 64.3 57.5 Abs Neut (ANC) 1.45 - 7.50 k/uL 3.20 2.70 Lymph% % 18.9 20.3 Abs Lymph 1.00 - 4.00 k/uL 0.94 (L) 0.95 (L) Jerome% % 10.4 14.1 Abs Jerome <0.87 k/uL 0.52 0.66 Eosin% % 4.4 5.5 Abs Eosin <0.46 k/uL 0.22 0.26 Baso% % 0.8 0.9 Abs Baso <0.11 k/uL 0.04 0.04 Immature Gran % % 1.2 1.7 IMMATURE GRANS (ABS) <0.10 k/uL 0.06 0.08 NRBC /100 WBC 0.0 0.0 Absolute nRBC <0.01 k/uL <0.01 <0.01 <0.01 DTYPE Auto Auto Protein, Total 6.3 - 8.0 g/dL 7.4 7.0 7.1 Albumin 3.9 - 4.9 g/dL 4.6 4.5 4.4 Calcium 8.5 - 10.2 mg/dL 9.8 10.0 10.2 Bilirubin, Total 0.2 - 1.3 mg/dL 0.6 0.5 0.5 Alkaline Phosphatase 34 - 123 U/L 51 50 54 AST 13 - 35 U/L 20 20 23 ALT 7 - 38 U/L 15 11 13 Glucose 74 - 99 mg/dL 100 (H) 89 101 (H) BUN 7 - 21 mg/dL 16 15 18 Creatinine 0.58 - 0.96 mg/dL 0.81 0.80 0.84 Sodium 136 - 144 mmol/L 132 (L) 133 (L) 134 (L) Potassium 3.7 - 5.1 mmol/L 3.9 3.7 3.5 (L) Chloride 98 - 107 mmol/L 93 (L) 97 (L) 93 (L) CO2 22 - 30 mmol/L 32 (H) 25 27 Anion Gap 8 - 15 mmol/L 7 (L) 11 14 eGFR >=60 mL/min/1.73m 73 74 69 Cholesterol, Total <200 mg/dL 179 208 (H) Triglyceride <150 mg/dL 207 (H) 314 (H) HDL Cholesterol >39 mg/dL 69 61 Non HDL Cholesterol <130 mg/dL 110 147 (H) Fasting Time hrs 12 12 VLDL Cholesterol <30 mg/dL 41 (H) 63 (H) TC:HDL Ratio <5.10 2.59 3.41 LDL Cholesterol <100 mg/dL 69 84 LDL:HDL Ratio <2.54 1.00 1.38 Hemoglobin A1C 4.3 - 5.6 % 5.6 5.5 5.5 Estimated Average Glucose mg/dL 114 111 111 Vitamin D 25 Hydroxy 31.0 - 80.0 ng/mL 76.7 69.7 Legend: (H) High (L) Low Assessment and Plan # Primary hypertension (I10) - Blood pressure well-controlled on current regimen. - Refilled metoprolol and lisinopril HCTZ prescriptions. - Discussed importance of maintaining adequate sodium intake to prevent exacerbation of hyponatremia. # Primary osteoarthritis involving multiple joints (M15.0) - Discontinued methotrexate due to insurance issues. - Discussed potential referral to rheumatology in [place] for further management. - Educated on anti-inflammatory benefits of omega-3 fatty acids; recommended incorporating walnuts, edamame, and ground flaxseed into diet. # Irritable bowel syndrome with both constipation and diarrhea (K58.2) - Symptoms managed with current dietary modifications including ground flaxseed and alphonso seeds. - Discussed potential use of omega-3 oils to aid in bowel regularity. # Mixed hyperlipidemia (E78.2) - Recent labs show elevated triglycerides; discussed dietary modifications to reduce carbohydrate intake. - Educated on incorporating omega-3 rich foods to help lower triglyceride levels. - Refilled lovastatin prescription. # IFG (impaired fasting glucose) (R73.01) - A1c at 5.5%, indicating good glycemic control. - Continue monitoring carbohydrate intake. # Hyponatremia (E87.1) - Recent labs show improvement in sodium levels. - Emphasized importance of adequate sodium intake, especially when increasing fluid intake. # Hypokalemia (E87.6) - Recent labs show improvement in potassium levels. - Encouraged consumption of potassium-rich foods such as fruits and vegetables. # Breast cancer screening by mammogram (Z12.31) - Ordered 3D mammogram to be scheduled after August 20. # Vitamin D deficiency (E55.9) - Recent labs show adequate vitamin D levels. - Continue current vitamin D supplementation. # Cervicalgia (M54.2) - Managed with regular chiropractic adjustments every 5-6 weeks. - Use of back support when lifting to prevent exacerbation. # Encounter for immunization (Z23) - Discussed availability of shingles and RSV vaccines; patient can obtain these at the pharmacy, covered by Medicare Part D. I spent a total of 45 minutes on the date of the service which included [id number] patient care, completing clinical documentation, obtaining and/or reviewing separately obtained history, performing a medically appropriate examination, counseling and educating the patient/family/caregiver, ordering medications, tests, or procedures, independently interpreting results (not separately reported), and communicating results to the patient/family/caregiver. Preston Haney MD documented in this encounter [facility] 05-30-2024 Note [facility] Medical Records Department [facility] [place] [address] History Physical Exam 05/30/24 0936 MR#: [id number] Acct: [id number] Name: CONCEPCION DONALDSON Rep #: [id number] : 1940 83 From: [place] Friend PCP: Dr. Preston Haney MD Status:[facility] Location: [place] [address] History and Physical Date of Admission: 05/30/24 OV 04.20.24 Pt has a f/u today for rectal bleeding. Pt reports she has spotting blood today. States she has a hx of hemorrhoids. Has a BM daily. Last colonoscopy was in 2017. Takes Miralax, mineral oil, Citrucel, super greens daily and omeprazole daily. PFSH Medical History Multinodular thyroid Benign paroxysmal positional vertigo, bilateral Osteoarthritis DDD (degenerative disc disease) Vision loss Uterovaginal prolapse, incomplete Essential (primary) hypertension Hyperlipidemia Raynaud disease Meniere disease IBS (irritable bowel syndrome) GERD (gastroesophageal reflux disease) Diverticulosis Surgical History History of bunionectomy History of hysterectomy History of cholecystectomy History of carpal tunnel release Family History Mother HypertensionBrother HypertensionFather Heart disease Social History Smoking Status: Never smoker HPI HPI Chief Complaint: follow up for c/o rectal bleeding Details: CONCEPCION DONALDSON, is a 83 F who presents to the office today for FU and for complaints of bleeding per rectum. She reports noted hematochezia 3-4 weeks ago following a BM. She has noticed rectal bleeding while in the shower as well. PCP checked CBC which was normal. She denies abdominal pain, tenesmus, rectal pressure, and cramping associated with bleeding. She denies difficulty chewing and swallowing, heartburn (controlled by omeprazole), bloating. She states that she adjusts her mineral oil intake daily, if she has looser stools, she will back off the oil, and if they're more firm she'll add a little oil that night. She states that she doesn't want a colonoscopy, but knows it is for the best. And asks for an EGD as well to verify continued healing of ulcers. She denies melena, lightheadedness, dizziness associated with blood loss. ROS Const Constitutional: Positive for fatigue, headache(s) and weakness; No fever(s) or weight change Eyes Eyes: No change in vision ENT ENT: Positive for abnormal hearing and headache(s); No difficulty swallowing Resp Respiratory: No cough Cardio Cardiology: Positive for leg pain with exertion; No chest pain at rest or chest pain with exertion Gastro GI: Positive for constipation, diarrhea and excessive flatus; No abdominal pain, belching, bloating, change in bowel habits, change in stool character, coffee ground emesis, cramping, heartburn, difficulty swallowing, feeling full early, incontinent of stools, Vomiting blood/hematemesis, Blood in stool, loose stools, Black,tarry stools, nausea/dyspepsia, pain with swallowing, vomiting or other Genitourinary-Female: No difficulty urinating Musc Musculoskeletal: Positive for abnormal gait, joint pain, back pain, joint swelling, muscle weakness, numbness, stiffness, tingling, Arthritis, sciatica, leg pain at night and leg pain with exertion Skin Skin: Positive for dry skin; No yellowing of the eye or itchy eyes Neuro Neurology: Positive for abnormal gait, abnormal hearing, weakness, headache(s), numbness, tingling and Increased tone in limbs Psych Psychiatric: No anxiety and No depression Endo Endocrine: Positive for fatigue; No weight change Aller/Imm Allergy/Immunologic: No food intolerance or itchy eyes Gerson/Lymp Hematologic/Lymphatic: Positive for easy bruising; No easy bleeding Exam Const General: cooperative, healthy appearing, comfortable and no acute distress Orientation: alert HENMT Head: normal to inspection Ears: hearing grossly impaired bilaterally Nose: external nose normal Face and sinus: normal facial exam and face symmetric Mouth: oral mucosae normal Teeth and gingiva: dentures Eyes General: appearance normal, both eyes and all related structures Sclera: sclerae normal Neck Neck: normal visual inspection and full ROM Neck mass: No Chest Chest palpation inspection: normal inspection of the chest Resp Effort Inspection: normal respiratory effort, able to speak in complete sentences and symmetric chest movement GI Inspection: distended Auscultation: normal bowel sounds Palpation: soft Skin General: no rashes or lesions noted Neuro General: patient alert, patient awake, patient oriented x3, oriented and moves all extremities Cognition: normal cognition Speech: speech laron (more content not included)... [facility] 04-24-2024 Note HNO ID: [id number] Author: BYRON SUTTON APRN.HEYDI Service: ? Author Type: Nurse Practitioner Type: Progress Notes Filed: 04/24/2024 11:10 Note Text: Concepcion Donaldson is a 83 year old female here for a Medicare wellness visit. Arthritis is still pretty bothersome. Questions about methotrexate. Seeing Dr. Madrid for rheumatology. Medicare Health Risk Assessment General Health Okay Exercise: Minutes/Day 0 min Exercise: Days/Week 0 days Alcohol: Daily Use Never Alcohol: Drinks/Day Patient does not drink Alcohol: 6 or more drinks Never Feel off balance Occasionally, uses a cane at times Concerns: Teeth/Dentures no Concerns: Sexual function no Troubled by feelings no Frequency: Eating healthy diet Tries to eat healthy daily ADLs requiring help no Safety precautions in home/vehicle yes Smoke, vape, chews tobacco no Difficulty hearing Yes, deaf in left ear Difficulty seeing no Current Providers Specialists: I have reviewed specialist-related care of the patient in the medical record. Current care team: Patient Care Team: Preston Haney MD as PCP - General (Internal Medicine) Outside specialists seen: rheumatology, general surgery, urogyn, clothespin drier operator, urology, spine center Medical/Family history review Reviewed and updated problem list, medical/surgical/family/social history, medications, and allergies. Opioid use review Opioid Medications (last 90 days) No data to display Anxiety/Depression screening Recommendation: no further intervention at this time Cognitive screening Mini Cog Score: 5 Cognitive screening reviewed and No further action needed (score 3-5). Functional Observation Was the patient's Timed Up AND Go test unsteady or >= 12 seconds? No Advance Care Planning Surrogate decision maker and/or advance care plan documented Measurements BP 130/70 Pulse 68 Resp 16 Ht 160.7 cm (5' 3.25) Wt 70.6 kg (155 lb 10.3 oz) BMI 27.35 kg/m? Vision Screening: Follows with optometry/ophthalmology Assessment/Plan 1. Medicare annual wellness visit, subsequent - ICD9: V70.0, ICD10: Z00.00 (primary diagnosis) - Counseled on healthy diet and regular exercise - Fall avoidance information provided - Personalized prevention plan provided 2. Primary hypertension - ICD9: 401.9, ICD10: I10 - Controlled - Continue current medications - Recommend home blood pressure monitoring, to bring results to next visit - Encouraged sodium restriction, DASH or Mediterranean diet - Recommend regular aerobic exercise 3. Primary osteoarthritis involving multiple joints - ICD9: 715.98, ICD10: M15.0 Following with rheum. Byron Sutton APRN.RAIL EXPRESS CLERK [facility] 04-24-2024 History of Present illness Narrative Images from the original note were not included. Concepcion Donaldson is a 83 year old female here for a Medicare wellness visit. Arthritis is still pretty bothersome. Questions about methotrexate. Seeing Dr. Madrid for rheumatology. Medicare Health Risk Assessment General Health Okay Exercise: Minutes/Day 0 min Exercise: Days/Week 0 days Alcohol: Daily Use Never Alcohol: Drinks/Day Patient does not drink Alcohol: 6 or more drinks Never Feel off balance Occasionally, uses a cane at times Concerns: Teeth/Dentures no Concerns: Sexual function no Troubled by feelings no Frequency: Eating healthy diet Tries to eat healthy daily ADLs requiring help no Safety precautions in home/vehicle yes Smoke, vape, chews tobacco no Difficulty hearing Yes, deaf in left ear Difficulty seeing no Current Providers Specialists: I have reviewed specialist-related care of the patient in the medical record. Current care team: Patient Care Team: Preston Haney MD as PCP - General (Internal Medicine) Outside specialists seen: rheumatology, general surgery, urogyn, clothespin drier operator, urology, spine center Medical/Family history review Reviewed and updated problem list, medical/surgical/family/social history, medications, and allergies. Opioid use review Opioid Medications (last 90 days) No data to display Anxiety/Depression screening Recommendation: no further intervention at this time Cognitive screening Mini Cog Score: 5 Cognitive screening reviewed and No further action needed (score 3-5). Functional Observation Was the patient's Timed Up & Go test unsteady or >= 12 seconds? No Advance Care Planning Surrogate decision maker and/or advance care plan documented Measurements BP 130/70 Pulse 68 Resp 16 Ht 160.7 cm (5' 3.25) Wt 70.6 kg (155 lb 10.3 oz) BMI 27.35 kg/m Vision Screening: Follows with optometry/ophthalmology Assessment/Plan 1. Medicare annual wellness visit, subsequent - ICD9: V70.0, ICD10: Z00.00 (primary diagnosis) - Counseled on healthy diet and regular exercise - Fall avoidance information provided - Personalized prevention plan provided 2. Primary hypertension - ICD9: 401.9, ICD10: I10 - Controlled - Continue current medications - Recommend home blood pressure monitoring, to bring results to next visit - Encouraged sodium restriction, DASH or Mediterranean diet - Recommend regular aerobic exercise 3. Primary osteoarthritis involving multiple joints - ICD9: 715.98, ICD10: M15.0 Following with rheum. Byron Sutton APRN.HEYDI documented in this encounter [facility] 04-24-2024 Instructions Byron Sutton APRN.CNP - 04/24/2024 10:29 AM EDT Screening schedule The following prevention plan is recommended: Shingrix Vaccine(2 of 3) due on 07/06/2013 RSV Vaccine(1 - 1-dose 75+ series) Never done Influenza Vaccine(1) due on 03/11/2024 Covid-19 Vaccine(2023- season) due on 03/11/2024 WHAT YOU CAN DO TO PREVENT FALLS Many falls can be prevented. By making some changes, you can lower your chances of falling. Four things YOU can do to prevent falls for you* and your caregiver 1. Begin a regular exercise program Exercise is one of the most important ways to lower your chances of falling. It makes you stronger and helps you feel better. Exercises that improve balance and coordination (like Kristopher Chi) are the most helpful. Lack of exercise leads to weakness and increases your chances of falling. Ask your doctor or health care provider about the best type of exercise program for you. 2. Have your health care provider review your medicines Have your doctor or pharmacist review all the medicines you take, even npmk-pux-fanrpau medicines. As you get older, the way medicines work in your body can change. Some medicines, or combinations of medicines, can make you sleepy or dizzy and can cause you to fall. 3. Have your vision checked Have your eyes checked by an eye doctor at least once a year. You may be wearing the wrong glasses or have a condition like glaucoma or cataracts that limits your vision. Poor vision can increase your chances of falling. 4. Make your home safer About half of all falls happen at home. To make your home safer: Remove things you can trip over (like papers, books, clothes, and shoes) from stairs and places where you walk. Remove small throw rugs or use double-sided tape to keep the rugs from slipping. Keep items you use often in cabinets you can reach easily without using a step stool. Have grab bars put in next to your toilet and in the tub or shower. Use non-slip mats in the bathtub and on shower floors. Improve the lighting in your home. As you get older, you need brighter lights to see well. Hang light-weight curtains or shades to reduce glare. Have handrails and lights put in on all staircases. Wear shoes both inside and outside the house. Avoid going barefoot or wearing slippers. For more information, contact: Centers for Disease Control and Prevention www.cdc.gov/injury * This information may not apply if you have certain medical conditions. documented in this encounter [facility] 02-15-2024 Note HNO ID: [id number] Author: MAHESH BELLO MA Service: ? Author Type: Project Control Manager Type: Progress Notes Filed: 02/15/2024 12:29 Note Text: POPULATION HEALTH NAVIGATION OUTREACH Action/FYI Patient is on [facility] CURRENT ROSTER Workbench list for below and needs appointment to address: RSV Vaccine(1 - 1-dose 60+ series) Shingrix Vaccine(2 of 3) Hemoglobin A1C (%) Date Value 01/13/2024 5.5 05/02/2021 5.8 Patient due for: Medicare Annual Wellness Visit Spoke to patient. Scheduled 04-24-24 with RAIL EXPRESS CLERK. Noted upcoming appointment to address due care gaps and HCC gap closure. No HCC Reason for Outreach Care Gap/HCC or Scheduling Wellness Visits Care Gaps due: Medicare Annual Wellness Visit Patient Contacted: Spoke to patient/parent/or legal guardian Patient identified by name and : Yes Care Gap/HCC/Scheduling Wellness actions taken: Patient scheduled/pended labs: Medicare Annual Wellness Visit 04/24/2024 in [facility] with BYRON SUTTON - Annual Wellness - 3 month follow up, Please address due care gaps and HCC gap closure 07/20/2024 in [facility] with PRESTON HANEY - 6 month follow up Navigation Signature: Mahesh Bello MA February 15, 2024 9:22 AM [facility] 02-15-2024 History of Present illness Narrative POPULATION HEALTH NAVIGATION OUTREACH Action/FYI Patient is on [facility] CURRENT ROSTER Workbench list for below and needs appointment to address: RSV Vaccine(1 - 1-dose 60+ series) Shingrix Vaccine(2 of 3) Hemoglobin A1C (%) Date Value 01/13/2024 5.5 05/02/2021 5.8 Patient due for: Medicare Annual Wellness Visit Spoke to patient. Scheduled 04-24-24 with RAIL EXPRESS CLERK. Noted upcoming appointment to address due care gaps and HCC gap closure. No HCC Reason for Outreach Care Gap/HCC or Scheduling Wellness Visits Care Gaps due: Medicare Annual Wellness Visit Patient Contacted: Spoke to patient/parent/or legal guardian Patient identified by name and : Yes Care Gap/HCC/Scheduling Wellness actions taken: Patient scheduled/pended labs: Medicare Annual Wellness Visit 04/24/2024 in [facility] with BYRON SUTTON - Annual Wellness - 3 month follow up, Please address due care gaps and HCC gap closure 07/20/2024 in [facility] with PRESTON HANEY - 6 month follow up Navigation Signature: Mahesh Bello MA February 15, 2024 9:22 AM documented in this encounter [facility] 02-15-2024 Note Patient Outreach (NE TNAV) CONCEPCION DONALDSON ([id number]) 1940 F Date Time Provider Department 02/15/24 MAHESH BELLO During your visit today, we recorded the following information about you: Mahesh Bello MA 02/15/2024 12:29 PM Signed POPULATION HEALTH NAVIGATION OUTREACH Action/FYI Patient is on [facility] CURRENT ROSTER Workbench list for below and needs appointment to address: RSV Vaccine(1 - 1-dose 60+ series) Shingrix Vaccine(2 of 3) Hemoglobin A1C (%) Date Value 01/13/2024 5.5 05/02/2021 5.8 Patient due for: Medicare Annual Wellness Visit Spoke to patient. Scheduled 04-24-24 with RAIL EXPRESS CLERK. Noted upcoming appointment to address due care gaps and HCC gap closure. No HCC Reason for Outreach Care Gap/HCC or Scheduling Wellness Visits Care Gaps due: Medicare Annual Wellness Visit Patient Contacted: Spoke to patient/parent/or legal guardian Patient identified by name and : Yes Care Gap/HCC/Scheduling Wellness actions taken: Patient scheduled/pended labs: Medicare Annual Wellness Visit 04/24/2024 in [facility] with BYRON SUTTON - Annual Wellness - 3 month follow up, Please address due care gaps and HCC gap closure 07/20/2024 in [facility] with PRESTON HANEY - 6 month follow up Navigation Signature: Mahesh Bello MA February 15, 2024 9:22 AM Allergies As of Date: 02/15/2024 Noted Allergy Reaction FOSAMAX (ALENDRONATE SODIUM) 07/13/2005 5 - Intolerance CODEINE 07/13/2005 5 - Intolerance NIACIN 07/13/2005 5 - Intolerance SULFA (SULFONAMIDE ANTIBIOTICS) 07/13/2005 5 - Intolerance Comments: Stomach pain VIOXX (ROFECOXIB) 07/13/2005 5 - Intolerance ZYRTEC (CETIRIZINE HCL) 07/13/2005 5 - Intolerance CELEBREX (CELECOXIB) 07/13/2005 2 - Rash GRASS POLLEN 01/10/2008 Comments: scratchy throat NITROFURANTOIN MONOHYD/M-CRYST 05/04/2021 5 - Intolerance Comments: Stomach pain PENICILLINS 07/13/2005 4 - Hives Date Reviewed: 01/20/2024 Reviewed by: Byron Sutton APRN.CNP - Fully Assessed Reason for Visit: Population Health Navigation Outreach [3910] Cmt: [facility] PCSA Prescriptions as of 02/15/2024 - calcitriol (ROCALTROL) 0.25 mcg capsule Take 1 capsule by mouth once daily. - omeprazole (PRILOSEC) 20 mg capsule Take 1 capsule by mouth two times a day. 1/2 HR BEFORE MEAL. - nortriptyline (PAMELOR) 25 mg capsule Take 1 capsule by mouth daily at bedtime. - lovastatin 40 mg tablet Take 1 tablet by mouth daily at bedtime. - lisinopril-hydroCHLOROthiazide (ZESTORETIC) 20-12.5 mg per tablet Take 1 tablet by mouth two times a day. - estradiol (ESTRACE) 0.01 % (0.1 mg/gram) vaginal cream Use 1 g vaginally daily at bedtime for 14 days, THEN 1 g two times a week. - metoprolol succinate ER (TOPROL XL) 50 mg 24 hr tablet Take 1 tablet by mouth every morning AND 0.5 tablets every afternoon. - calcitriol (ROCALTROL) 0.25 mcg capsule Take 1 capsule by mouth once daily. - nortriptyline (PAMELOR) 25 mg capsule Take 1 capsule by mouth daily at bedtime. - omeprazole (PRILOSEC) 20 mg capsule Take 1 capsule by mouth two times a day. 1/2 HR BEFORE MEAL. - MINERAL OIL ORAL Take by mouth as needed (constipation). - cholecalciferol (VITAMIN D3) 50 mcg (2,000 unit) tablet Take 2,000 Units by mouth once daily. - polyethylene glycol 3350 (MIRALAX, GLYCOLAX) 17 gram/dose powder Take 17 g by mouth once daily. - aspirin, enteric coated (ASPIRIN, ENTERIC COATED) 81 mg EC tablet Take 1 tablet by mouth once daily. - Methylcellulose, Laxative, 500 mg tab TAKE TWO TABLETS TWICE DAILY - omega-3 fatty acids/vitamin e(FISH OIL 1,000 MG CAP) Take one(1) tablet daily. - THERAPEUTIC MULTIVITAMIN TAB Take one(1) tablet daily. Problem List As Of Date 02/15/2024 Noted Resolved Mixed hyperlipidemia [E78.2] 01/12/2006 Primary osteoarthritis involving multiple joint*01/12/2006 Primary hypertension [I10] 03/15/2006 CERVICALGIA [M54.2] 03/24/2006 RAYNAUD'S SYNDROME [I73.00] MENIERE DIS COCHLVESTIB [H81.09] 08/03/2006 BENIGN PARXYSMAL VERTIGO [H81.10] 08/03/2006 Uterovaginal Prolapse, Incomplete [N81.2] 06/08/2007 09/29/2009 Postmenopausal atrophic vaginitis [N95.2] 06/08/2007 07/06/2016 Chronic GERD [K21.9] 07/25/2007 Urgency of urination [R39.15] 01/10/2008 07/06/2016 Urge Incontinence [N39.41] 01/10/2008 09/29/2009 Female Stress Incontinence [N39.3] 01/10/2008 09/29/2009 GASTRITIS ANTRAL( W/O Hemorrhage) [K29.60] 05/27/2008 07/06/2016 Incontinence of feces [787.6] 09/29/2009 03/23/2011 Rectocele [N81.6] 09/29/2009 Vision loss [H54.7] 04/21/2010 07/06/2016 IBS (irritable bowel syndrome) [K58.9] 07/22/2010 Rectal incontinence [R15.9] 03/23/2011 Eczema [L30.9] 07/01/2011 Other disorder of coccyx [M53.3] 05/05/2012 DDD (degenerative disc disease), cervical [M50.*09/10/2013 Medicare annual wellness visit, subsequent [Z00*11/ (more content not included)... [facility] 01-20-2024 Note HNO ID: [id number] Author: BYRON SUTTON APRN.RAIL EXPRESS CLERK Service: ? Author Type: Nurse Practitioner Type: Progress Notes Filed: 01/20/2024 10:49 Note Text: SUBJECTIVE Concepcion Donaldson is a 83 year old female here today for a check up on her medical problems. Chief Complaint Patient presents with: F/U 6 months HPI Concepcion Donaldson is a 83 year old female. She is an established patient of Preston Haney MD. Here today for a routine 6 month follow up. Last seen 07/20 with Preston Haney MD. History of HTN, HLD, IFG, constipation, vitamin d def. And IBS. Had labs done 01/12. Doing well. Working on diet to control sugars. IBS is stable, constipation managed. Following with GI. No issues with chest pain, chest tightness or shortness of breath. She does have a problematic varicose vein on the right leg causing her some pain. Prior vein stripping. Behavioral Health Screening PHQ-2 Score: 0 (Lower risk for depression) ABDIAS-2 Score: 0 (Lower risk for anxiety) Recommendation: no further intervention at this time Her medications were reviewed today and her list is now up to date. Medications Current Outpatient Medications Medication Sig calcitriol (ROCALTROL) 0.25 mcg capsule Take 1 capsule by mouth once daily. omeprazole (PRILOSEC) 20 mg capsule Take 1 capsule by mouth two times a day. 1/2 HR BEFORE MEAL. nortriptyline (PAMELOR) 25 mg capsule Take 1 capsule by mouth daily at bedtime. lovastatin 40 mg tablet Take 1 tablet by mouth daily at bedtime. lisinopril-hydroCHLOROthiazide (ZESTORETIC) 20-12.5 mg per tablet Take 1 tablet by mouth two times a day. estradiol (ESTRACE) 0.01 % (0.1 mg/gram) vaginal cream Use 1 g vaginally daily at bedtime for 14 days, THEN 1 g two times a week. metoprolol succinate ER (TOPROL XL) 50 mg 24 hr tablet Take 1 tablet by mouth every morning AND 0.5 tablets every afternoon. calcitriol (ROCALTROL) 0.25 mcg capsule Take 1 capsule by mouth once daily. nortriptyline (PAMELOR) 25 mg capsule Take 1 capsule by mouth daily at bedtime. omeprazole (PRILOSEC) 20 mg capsule Take 1 capsule by mouth two times a day. 1/2 HR BEFORE MEAL. MINERAL OIL ORAL Take by mouth as needed (constipation). cholecalciferol (VITAMIN D3) 50 mcg (2,000 unit) tablet Take 2,000 Units by mouth once daily. polyethylene glycol 3350 (MIRALAX, GLYCOLAX) 17 gram/dose powder Take 17 g by mouth once daily. aspirin, enteric coated (ASPIRIN, ENTERIC COATED) 81 mg EC tablet Take 1 tablet by mouth once daily. Methylcellulose, Laxative, 500 mg tab TAKE TWO TABLETS TWICE DAILY omega-3 fatty acids/vitamin e(FISH OIL 1,000 MG CAP) Take one(1) tablet daily. THERAPEUTIC MULTIVITAMIN TAB Take one(1) tablet daily. No current facility-administered medications for this visit. 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 Home BP: 138/86 Office BP: 146/74 Mixed Hyperlipidemia - 01/12/2006 Primary Osteoarthritis Involving Multiple Joints - 01/12/2006 Social History Tobacco Use Smoking status: Never Smokeless tobacco: Never Vaping Use Vaping Use: Never used Substance Use Topics Alcohol use: No Drug use: No Review of Systems Constitutional: Negative. Respiratory: Negative. Cardiovascular: Negative. Musculoskeletal: Positive for arthralgias. OBJECTIVE BP 144/70 Pulse 67 Resp 16 Wt 159 lb (72.1kg) SpO2 98% Physical Exam Vitals and nursing note reviewed. Constitutional: General: She is awake. She is not in acute distress. Appearance: Normal appearance. She is well-developed and well-groomed. She is not ill-appearing, toxic-appearing or diaphoretic. HENT: Head: Normocephalic. Right Ear: External ear normal. Left Ear: External ear normal. Nose: Nose normal. Eyes: General: Vision grossly intact. Conjunctiva/sclera: Conjunctivae normal. Pupils: Pupils are equal, round, and reactive to light. Neck: Vascular: No JVD. Trachea: (more content not included)... [facility] 01-20-2024 History of Present illness Narrative SUBJECTIVE Concepcion Donaldson is a 83 year old female here today for a check up on her medical problems. Chief Complaint Patient presents with: F/U 6 months HPI Concepcion Donaldson is a 83 year old female. She is an established patient of Preston Haney MD. Here today for a routine 6 month follow up. Last seen 07/20 with Preston Haney MD. History of HTN, HLD, IFG, constipation, vitamin d def. And IBS. Had labs done 01/12. Doing well. Working on diet to control sugars. IBS is stable, constipation managed. Following with GI. No issues with chest pain, chest tightness or shortness of breath. She does have a problematic varicose vein on the right leg causing her some pain. Prior vein stripping. Behavioral Health Screening PHQ-2 Score: 0 (Lower risk for depression) ABDIAS-2 Score: 0 (Lower risk for anxiety) Recommendation: no further intervention at this time Her medications were reviewed today and her list is now up to date. Medications Current Outpatient Medications Medication Sig calcitriol (ROCALTROL) 0.25 mcg capsule Take 1 capsule by mouth once daily. omeprazole (PRILOSEC) 20 mg capsule Take 1 capsule by mouth two times a day. 1/2 HR BEFORE MEAL. nortriptyline (PAMELOR) 25 mg capsule Take 1 capsule by mouth daily at bedtime. lovastatin 40 mg tablet Take 1 tablet by mouth daily at bedtime. lisinopril-hydroCHLOROthiazide (ZESTORETIC) 20-12.5 mg per tablet Take 1 tablet by mouth two times a day. estradiol (ESTRACE) 0.01 % (0.1 mg/gram) vaginal cream Use 1 g vaginally daily at bedtime for 14 days, THEN 1 g two times a week. metoprolol succinate ER (TOPROL XL) 50 mg 24 hr tablet Take 1 tablet by mouth every morning AND 0.5 tablets every afternoon. calcitriol (ROCALTROL) 0.25 mcg capsule Take 1 capsule by mouth once daily. nortriptyline (PAMELOR) 25 mg capsule Take 1 capsule by mouth daily at bedtime. omeprazole (PRILOSEC) 20 mg capsule Take 1 capsule by mouth two times a day. 1/2 HR BEFORE MEAL. MINERAL OIL ORAL Take by mouth as needed (constipation). cholecalciferol (VITAMIN D3) 50 mcg (2,000 unit) tablet Take 2,000 Units by mouth once daily. polyethylene glycol 3350 (MIRALAX, GLYCOLAX) 17 gram/dose powder Take 17 g by mouth once daily. aspirin, enteric coated (ASPIRIN, ENTERIC COATED) 81 mg EC tablet Take 1 tablet by mouth once daily. Methylcellulose, Laxative, 500 mg tab TAKE TWO TABLETS TWICE DAILY omega-3 fatty acids/vitamin e(FISH OIL 1,000 MG CAP) Take one(1) tablet daily. THERAPEUTIC MULTIVITAMIN TAB Take one(1) tablet daily. No current facility-administered medications for this visit. ALLERGIES Allergen Reactions Fosamax [Alendronat* Intolerance Codeine Intolerance Niacin Intolerance Sulfa (Sulfonamide * Intolerance Stomach pain Vioxx [Rofecoxib] Intolerance Zyrtec [Cetirizine * Intolerance Celebrex [Celecoxib] Rash Grass Pollen scratchy throat Nitrofurantoin Jerome* Intolerance Stomach pain Penicillins Hives ACTIVE PROBLEM LIST Spinal Stenosis of Lumbar Region Without Neurogenic Claudication - 03/04/2019 Persistent Disorder of Initiating Or Maintaining Sleep - 04/26/2017 Deafness in Left Ear - 07/06/2016 Prediabetes - 11/16/2015 Multinodular Thyroid - 11/16/2015 Ddd (Degenerative Disc Disease), Cervical - 09/10/2013 Other Disorder of Coccyx - 05/05/2012 Eczema - 07/01/2011 Rectal Incontinence - 03/23/2011 Ibs (Irritable Bowel Syndrome) - 07/22/2010 Rectocele - 09/29/2009 Chronic Gerd - 07/25/2007 Active M ni re's Disease, 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 Home BP: 138/86 Office BP: 146/74 Mixed Hyperlipidemia - 01/12/2006 Primary Osteoarthritis Involving Multiple Joints - 01/12/2006 Social History Tobacco Use Smoking status: Never Smokeless tobacco: Never Vaping Use Vaping Use: Never used Substance Use Topics Alcohol use: No Drug use: No Review of Systems Constitutional: Negative. Respiratory: Negative. Cardiovascular: Negative. Musculoskeletal: Positive for arthralgias. OBJECTIVE BP 144/70 Pulse 67 Resp 16 Wt 159 lb (72.1kg) SpO2 98% Physical Exam Vitals and nursing note reviewed. Constitutional: General: She is awake. She is not in acute distress. Appearance: Normal appearance. She is well-developed and well-groomed. She is not ill-appearing, toxic-appearing or diaphoretic. HENT: Head: Normocephalic. Right Ear: External ear normal. Left Ear: External ear normal. Nose: Nose normal. Eyes: General: Vision grossly intact. Conjunctiva/sclera: Conjunctivae normal. Pupils: Pupils are equal, round, and reactive to light. Neck: Vascular: No JVD. Trachea: Trachea normal. Cardiovascular: Rate and Rhythm: Normal rate and regular rhythm. Pulses: Normal pulses. Heart sounds: Normal heart sounds. No murmur heard. Pulmonary: Effort: Pulmonary effort is normal. No accessory muscle usage, prolonged expiration or respiratory distress. Breath sounds: Normal breath sounds. Musculoskeletal: Cervical back: Neck supple. Skin: General: Skin is warm and dry. Capillary Refill: Capillary refill takes less than 2 seconds. Neurological: General: No focal deficit present. Mental Status: She is alert and oriented to person, place, and time. Mental status is at baseline. Psychiatric: Attention and Perception: Attention and perception normal. Mood and Affect: Mood and affect normal. Speech: Speech normal. Behavior: Behavior normal. Behavior is cooperative. Thought Content: Thought content normal. Cognition and Memory: Cognition and memory normal. Judgment: Judgment normal. ASSESSMENT/PLAN: 1. Primary hypertension - ICD9: 401.9, ICD10: I10 (primary diagnosis) - Worsening control - Factors affecting control: lack of exercise - Continue current medications - Recommend home blood pressure monitoring, to bring results to next visit - Encouraged sodium restriction, DASH or Mediterranean diet - Recommend regular aerobic exercise Follow up 3 months for recheck on bp 2. Mixed hyperlipidemia - ICD9: 272.2, ICD10: E78.2 - Controlled - Counseled on healthy diet and regular exercise - LIPID PANEL BASIC 3. Prediabetes - ICD9: 790.29, ICD10: R73.03 Overall improving. Discussed diet changes. - HEMOGLOBIN A1C 4. Varicose veins of right lower extremity with pain - ICD9: 454.8, ICD10: I83.811 Monitor, refer to vascular if continues to be bothersome. 5. Chronic constipation - ICD9: 564.00, ICD10: K59.09 Stable. 6. Irritable bowel syndrome with both constipation and diarrhea - ICD9: 564.1, ICD10: K58.2 Stable, sees GI. 7. Encounter for therapeutic drug level monitoring - ICD9: V58.83, ICD10: Z51.81 - COMPLETE BLOOD COUNT AND DIFFERENTIAL - COMPREHENSIVE METABOLIC PANEL 8. Vitamin D deficiency - ICD9: 268.9, ICD10: E55.9 - VITAMIN D 25 HYDROXY Portions of this note have been entered by ancillary staff. I have reviewed and when necessary edited, so that they are an adequate record of my encounter with this patient Please note that parts of this document were created using voice recognition software and therefore may contain grammatical errors. Patient verbalizes understanding of instructions from today's visit and in agreement with treatment plan. Questions answered. Agrees to call the office if questions, concerns of issues with acute symptoms not improving or if they worsen. See diagnoses and orders for additional plan(s). Allergies and medications were reviewed, list was updated, and refills given if needed. Past medical, surgical, social, and family history reviewed and updated as appropriate. Encouraged proper diet & exercise as well as compliance with taking medications. Age-appropriate health preventative measures were discussed. Return in about 3 months (around 04/21/2024) for medicare wellness. And recheck on bp. Byron Sutton APRN-HEYDI documented in this encounter [facility] 12-23-2023 Telephone encounter Note Order and records faxed to Dr. Madrid to number provided below. [facility] 12-23-2023 Miscellaneous Notes Order and records faxed to Dr. Madrid to number provided below. Filed order as requested Print records as requested below Pt is calling to report her arthritis is getting worse and she would like to see miter sawyer Dr. Madrid. Pt is asking for an order to be faxed to Dr. Madrid's office along with: Demographics, last 2 OV notes, last 6 months of labs and imaging, copy front and back of insurance card. Pt reports she is mostly going for the arthritis in her hands. Fax to: [phone]. Miranda Munoz LPN documented in this encounter [facility] 12-23-2023 Telephone encounter Note Filed order as requested Print records as requested below [facility] 12-20-2023 Telephone encounter Note Pt is calling to report her arthritis is getting worse and she would like to see miter sawyer Dr. Madrid. Pt is asking for an order to be faxed to Dr. Madrid's office along with: Demographics, last 2 OV notes, last 6 months of labs and imaging, copy front and back of insurance card. Pt reports she is mostly going for the arthritis in her hands. Fax to: [phone]. Miranda Munoz LPN [facility] 08-22-2023 Miscellaneous Notes August 22, 2023 PID: [id number] Concepcion Donaldson [address] [place] [address] Dear Ms. Donaldson, We are pleased to inform you that the results of your recent breast imaging exam on 08/19/2023 are normal. Early detection of cancer is very important. We also understand recommendations regarding breast cancer screening are controversial. Please discuss with your primary care provider which strategy is best for you and whether a mammogram is right for you. Your imaging studies and report will be kept on file at [facility] as part of your permanent medical record and are available for your continuing care. Thank you for allowing us to help in meeting your health care needs. Sincerely, Dr. Marcelo Interpreting Radiologist [facility] (Normal over 40) documented in this encounter [facility] 08-19-2023 History of Present illness Narrative Radiology Service Progress Note PATIENT NAME: Concepcion Donaldson DATE OF SERVICE: August 19, 2023 TIME: 9:57 AM PATIENT IDENTITY VERIFICATION COMPLETED USING TWO (2) IDENTIFIERS: Name and Date of confirmed by patient verbally. FALL SCREENING: Has the patient had 2 falls in the last year or 1 fall with injury or currently using an Ambulatory Assistive Device (Walker, Cane, Wheelchair, Crutches, etc.)? No PATIENT GENDER DATA: Female. status: : No status: NO. PATIENT RELEVANT IMPLANT DATA REVIEWED: Not Applicable PATIENT PRESENTS WITH AN IMPLANTABLE OR ATTACHED EMBROIDERER: No RADIOLOGY DEPARTMENT: Mammography PERIPHERAL IV DATA: Not applicable SIGNED BY: Gali Rossi August 19, 2023 9:57 AM documented in this encounter [facility] 07-20-2023 History of Present illness Narrative This note was created using SocialSign.inter. Subjective Concepcion Donaldson is a 82 year old female. Patient presents with: F/U 6 months: Labs prior SUBJECTIVE: Concepcion Donaldson is a 82 year old year old lady here today for 6 month follow up appointment for review of medical conditions. Has not needed metoprolol 0.5 tablet in the afternoon. Trying to get more sodium through electrolyte drink. Getting supergrain mix plus also Miralax, Citrucel, alphonso seed and mineral oil (but just 1 teaspoon instead of 1 T at night) in 10oz water. She put the Mineral Oil back at bedtime 1T. Also increased Alphonso seeds. This is working. Noted sister had to have colectomy and has ileostomy. Limited with activity due to left sciatica--acting up now. Working with pain management. Right used to be the more painful. Needs cane now. Overdid it with moving (packing up place, etc). Working with chiropractor. Left leg more red and swollen starting when sciatica started. Not hot. Has redness of right leg too. Usually wears thigh high support stockings. DJD changes in hands. Difficult to peel things. Hard to mold maker plastic molds since not able to close hands all the way. Knows DJD affecting back and has spinal stenosis. Follows with Dr. Owusu. Turns out not having recurrent UTIs. Treatment with compounded med from [facility]. Doing well. 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 Clemons Current Outpatient Medications Medication Sig calcitriol (ROCALTROL) 0.25 mcg capsule Take 1 capsule by mouth once daily. estradiol (ESTRACE) 0.01 % (0.1 mg/gram) vaginal cream Use 1 g vaginally daily at bedtime for 14 days, THEN 1 g two times a week. metoprolol succinate ER (TOPROL XL) 50 mg 24 hr tablet Take 1 tablet by mouth every morning AND 0.5 tablets every afternoon. nortriptyline (PAMELOR) 25 mg capsule Take 1 capsule by mouth daily at bedtime. omeprazole (PRILOSEC) 20 mg capsule Take 1 capsule by mouth two times a day. 1/2 HR BEFORE MEAL. MINERAL OIL ORAL Take by mouth as needed (constipation). cholecalciferol (VITAMIN D3) 50 mcg (2,000 unit) tablet Take 2,000 Units by mouth once daily. polyethylene glycol 3350 (MIRALAX, GLYCOLAX) 17 gram/dose powder Take 17 g by mouth once daily. Methylcellulose, Laxative, 500 mg tab TAKE TWO TABLETS TWICE DAILY omega-3 fatty acids/vitamin e(FISH OIL 1,000 MG CAP) Take one(1) tablet daily. THERAPEUTIC MULTIVITAMIN TAB Take one(1) tablet daily. aspirin, enteric coated (ASPIRIN, ENTERIC COATED) 81 mg EC tablet Take 1 tablet by mouth once daily. No current facility-administered medications for this visit. Review of Systems Objective BP 132/66 Pulse 72 Temp 36.3 C (97.4 F) Resp 18 Wt 71.7 kg (158 lb) SpO2 96% BMI 27.55 kg/m Last 5 Encounter Wt Readings: Date: Wt: 07/20/2023 71.7 kg (158 lb) 02/07/2023 71.7 kg (158 lb) 09/14/2022 73.8 kg (162 lb 12.8 oz) 08/17/2022 73.2 kg (161 lb 6.4 oz) 06/08/2022 73 kg (161 lb) No waist measurement recorded Estimated body mass index is 27.55 kg/m as calculated from the following: Height as of 08/17/22: 161.3 cm (5' 3.5). Weight as of this encounter: 71.7 kg (158 lb). Last 5 Encounter BP Readings: Date: BP: 07/20/2023 132/66 02/07/2023 126/60 09/14/2022 128/84 08/17/2022 158/78 06/08/2022 132/60 Physical Exam Constitutional: Appearance: Normal appearance. HENT: Head: Normocephalic. Eyes: Conjunctiva/sclera: Conjunctivae normal. Cardiovascular: Rate and Rhythm: Normal rate and regular rhythm. Heart sounds: Normal heart sounds. Pulmonary: Effort: Pulmonary effort is normal. Breath sounds: Normal breath sounds. Musculoskeletal: Right lower leg: Edema (trace) present. Left lower leg: Edema (trace) present. Skin: General: Skin is warm and dry. Comments: d redness o legs, left more than right; no rash noted; blanches Neurological: General: No focal deficit present. Mental Status: She is alert and oriented to person, place, and time. Psychiatric: Mood and Affect: Mood normal. Behavior: Behavior normal. Thought Content: Thought content normal. Judgment: Judgment normal. Component Latest Ref Rng & Units 06/08/2022 01/31/2023 07/13/2023 WBC 3.70 - 11.00 k/uL 5.92 4.37 4.98 RBC 3.90 - 5.20 m/uL 5.09 5.15 5.26 (H) Hemoglobin 11.5 - 15.5 g/dL 15.3 15.3 15.4 Hematocrit 36.0 - 46.0 % 44.5 45.2 44.8 MCV 80.0 - 100.0 fL 87.4 87.8 85.2 MCH 26.0 - 34.0 pg 30.1 29.7 29.3 MCHC 30.5 - 36.0 g/dL 34.4 33.8 34.4 RDW-CV 11.5 - 15.0 % 13.1 13.2 13.1 Platelet Count 150 - 400 k/uL 192 170 197 MPV 9.0 - 12.7 fL 11.1 10.3 10.3 Neut% % 62.2 61.7 64.3 Abs Neut (ANC) 1.45 - 7.50 k/uL 3.68 2.70 3.20 Lymph% % 18.6 18.5 18.9 Abs Lymph 1.00 - 4.00 k/uL 1.10 0.81 (L) 0.94 (L) Jerome% % 12.8 10.8 10.4 Abs Jerome <0.87 k/uL 0.76 0.47 0.52 Eosin% % 4.6 6.2 4.4 Abs Eosin <0.46 k/uL 0.27 0.27 0.22 Baso% % 1.0 1.4 0.8 Abs Baso <0.11 k/uL 0.06 0.06 0.04 Immature Gran % % 0.8 1.4 1.2 IMMATURE GRANS (ABS) <0.10 k/uL 0.05 0.06 0.06 NRBC /100 WBC 0.0 0.0 0.0 Absolute nRBC <0.01 k/uL <0.01 <0.01 <0.01 DTYPE Auto Auto Auto Protein, Total 6.3 - 8.0 g/dL 7.1 6.9 7.4 Albumin 3.9 - 4.9 g/dL 4.4 4.4 4.6 Calcium 8.5 - 10.2 mg/dL 9.9 9.7 9.8 Bilirubin, Total 0.2 - 1.3 mg/dL 0.4 0.6 0.6 Alkaline Phosphatase 34 - 123 U/L 47 48 51 AST 13 - 35 U/L 28 23 20 ALT 7 - 38 U/L 15 12 15 Glucose 74 - 99 mg/dL 72 (L) 101 (H) 100 (H) BUN 7 - 21 mg/dL 16 14 16 Creatinine 0.58 - 0.96 mg/dL 0.82 0.94 0.81 Sodium 136 - 144 mmol/L 130 (L) 133 (L) 132 (L) Potassium 3.7 - 5.1 mmol/L 4.2 3.8 3.9 Chloride 97 - 105 mmol/L 93 (L) 96 (L) 93 (L) CO2 22 - 30 mmol/L 25 26 32 (H) Anion Gap 9 - 18 mmol/L 12 11 7 (L) eGFR >=60 mL/min/1.73m 72 61 73 Cholesterol, Total <200 mg/dL 188 179 Triglyceride <150 mg/dL 210 (H) 207 (H) HDL Cholesterol >39 mg/dL 59 69 Non HDL Cholesterol <130 mg/dL 129 110 Fasting Time hrs 12 12 VLDL Cholesterol <30 mg/dL 42 (H) 41 (H) TC:HDL Ratio <5.10 3.19 2.59 LDL Cholesterol <100 mg/dL 87 69 LDL:HDL Ratio <2.54 1.47 1.00 Total Cholesterol, Nonfasting <200 mg/dL 187 Triglycerides, Nonfasting <150 mg/dL 315 (H) HDL Cholesterol, Nonfasting >39 mg/dL 56 LDL Cholesterol, Nonfasting <100 mg/dL 68 Non HDL Cholesterol, Nonfasting <130 mg/dL 131 (H) VLDL Cholesterol, Nonfasting <30 mg/dL 63 (H) Total Chol/HDL Ratio, Nonfasting <5.10 mg/dL 3.34 LDL/HDL Ratio, Nonfasting <2.54 mg/dL 1.21 Hemoglobin A1C 4.3 - 5.6 % 5.7 (H) 5.7 (H) 5.6 Estimated Average Glucose mg/dL 117 117 114 Assessment and Plan Encounter Diagnosis ICD-10-CM 1. Primary hypertension I10 COMP METABOLIC PANEL CBC Good control Continuep present management 2. Mixed hyperlipidemia E78.2 LIPID PANEL BASIC HDL and LDL fine; TG almost <200. Continue present management 3. IFG (impaired fasting glucose) R73.01 HGB A1C COMP METABOLIC PANEL Improved. Continue to monitor 4. Chronic constipation K59.09 Discussed management 5. Vitamin D deficiency E55.9 VITAMIN D 25 HYDROXY Adjust supplement as indicated on labs 6. Redness and swelling of lower leg M79.89 R23.8 Discussed venous stasis changes. Treatment as discussed. Control swelling.Light, elastic compression and leg elevation. 7. Encounter for immunization Z23 RSV PRINTED PHARMACY INSTRUCTIONS 8. Need for shingles vaccine Z23 SHINGRIX PRINTED PHARMACY INSTRUCTIONS 9. Breast cancer screening by mammogram Z12.31 CESAR SCREENING W RVIAS Patient would pursue furtherr evaluation and treatment if mammogram indicated need Above issues addressed with patient. Patient involved in shared decision making for management of medical issues. History and medications reviewed. Epic updated as needed Refills and/or prescriptions taken care of and meds adjusted as indicated after reviewed history, exam and labs. Health Maintenance reviewed. Updated record and/or ordered tests as recorded. Encouraged on efforts at healthy diet and regular exercise and adequate sleep. Numbers improving with Glucose, HgA1C and TG. Continue present management. Needs to keep working on diet and exercise with lifestyle changes for effective weight loss as well as prevention of DM, and control of BP and lipids. Bowels better with recommendations per Dr. Jay. Continue present management. BP controlled. Continue present management. Preston Haney MD documented in this encounter [facility] 03-29-2023 History of Present illness Narrative Radiology Service Progress Note PATIENT NAME: Concepcion Donaldson DATE OF SERVICE: March 29, 2023 TIME: 9:36 AM PATIENT IDENTITY VERIFICATION COMPLETED USING TWO (2) IDENTIFIERS: Name and Date of confirmed by patient verbally. FALL SCREENING: Has the patient had 2 falls in the last year or 1 fall with injury or currently using an Ambulatory Assistive Device (Walker, Cane, Wheelchair, Crutches, etc.)? No PATIENT GENDER DATA: Female. status: : No status: NO. PATIENT RELEVANT IMPLANT DATA REVIEWED: Not Applicable RADIOLOGY DEPARTMENT: Mammography PERIPHERAL IV DATA: Not applicable SIGNED BY: RT Eden(R) March 29, 2023 9:36 AM documented in this encounter [facility] 12-23-2022 Miscellaneous Notes Called and updated patient that order is entered and does not need appointment until March 2023 for the 6 month exam. Patient voiced understanding. Abby Gaitan LPN Order for left-sided mammogram and is completed Patient called in wanting to schedule her 6 month follow up mammogram following her left breast biopsy completed around September with Dr. Mart. The pharmacy scheduler told the patient they could not see an order placed for the mammogram, nor do I see it listed. Please advise so the patient can schedule. Thank you. documented in this encounter [facility] 09-14-2022 History of Present illness Narrative Subjective: Patient is status post a left stereotactic breast biopsy completed at [facility] on 08/30/2022. This came back as fibrous benign histiocytic proliferation and associated cluster of vaginal microcalcifications. There was fibrocystic changes associate with microcalcifications. There is focal intraductal hyperplasia without atypia. There is a fragment of skin with no pathologic change. And there is no evidence of malignancy. Objective:Blood pressure 128/84, pulse 80, temperature 36.2 C (97.2 F), weight 73.8 kg (162 lb 12.8 oz). Biopsy site shows moderate amount of bruising particularly on the skin side itself as well as this going down towards the nipple there is no signs of cellulitis or abscess formation. Assessment: Microcalcifications of the breast (primary encounter diagnosis) Plan: Patient will get a 6-month follow-up mammogram and then get back on her normal routine mammograms after this. documented in this encounter [facility] 08-17-2022 History of Present illness Narrative HISTORY AND PHYSICAL - BREAST COMPLAINT Concepcion Donaldson 1940 REFERRING PHYSICIAN: Preston Haney MD CHIEF COMPLAINT: Microcalcifications of the breast (primary encounter diagnosis) HPI: The patient is a 81 year old female with a complaint of an abnormal mammogram. The patient had a mammogram with ultrasound on 08/11/22 which demonstrated microcalcifications of the left breast: The patient denies a history of breast masses. She does perform a self breast exam routinely. She notes no skin changes. She denies nipple discharge. She notes no axillary masses. She notes no family history of breast problems. She notes no significant breast trauma or breast difficulties in the past. The patient is being seen by me today at the request of Dr. Preston Haney MD for my opinion and advice regarding Microcalcifications of the breast (primary encounter diagnosis). 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 lCemons PAST SURGICAL HISTORY Procedure Laterality Date PRAKASH PH PLACEMENT W/O ENDOSCOPY 09/03/[address] [facility] [address] Cabello CHOLECYSTECTOMY 1982 COLONOSCOPY FLX DX W/COLLJ SPEC WHEN PFRMD 05/17/2002 Colonoscopy COLONOSCOPY FLX DX W/COLLJ SPEC WHEN PFRMD 07/18/2016 Colonoscopy COLONOSCOPY W/BIOPSY SINGLE/MULTIPLE 07/14/2010 DILATION & CURETTAGE DX&/THER NONOBSTETRIC 03/21/2001 Dilation & curettage attempted in the OR EGD TRANSORAL BIOPSY SINGLE/MULTIPLE 07/28/2007 HH, esophagitis,antral gastritis EGD TRANSORAL BIOPSY SINGLE/MULTIPLE 05/27/2008 HH, esophagits, antral gastritis ESOPHAGOGASTRODUODENOSCOPY TRANSORAL DIAGNOSTIC 07/18/2016 EGD LIG/TRNSXJ FLP TUBE ABDL/VAG APPR UNI/BI 1975 NEUROPLASTY &/TRANSPOS MEDIAN NRV CARPAL TUNNE Bilateral 2000 2001 Carpal tunnel decomp PAST SURGICAL HISTORY OF BILAT. BUNIONECTOMY PAST SURGICAL HISTORY OF Right 2004 right middle finger trigger release PAST SURGICAL HISTORY OF Right 1972 vein stripping right leg PAST SURGICAL HISTORY OF 04/17/2009 Dr. Hoff Total vaginal hysterectomy, uterosacral vaginal vault suspension, anterior repair, Monarc sling, and cystoscopy PAST SURGICAL HISTORY OF 08/22/2019 skin ca nose removed PAST SURGICAL HISTORY OF 11/20/2019 Dr. Dickens--BCC on left side of nose in the groove REMV CATARACT EXTRACAP,INSERT LENS 03/05/2020 03/18/2020 SKIN BX, 1 LESION 08/2020 on neck- squamous cell carcinomia Current Outpatient Medications Medication Sig Dispense Refill MINERAL OIL ORAL Take by mouth as needed (constipation). calcitriol (ROCALTROL) 0.25 mcg capsule Take 1 capsule by mouth once daily. 90 capsule 3 lisinopril-hydroCHLOROthiazide (PRINZIDE,ZESTORETIC) 20-12.5 mg per tablet Take 1 tablet by mouth twice daily. ( adjusted dose and sent RX) 180 tablet 3 lovastatin 40 mg tablet Take 1 tablet by mouth daily at bedtime. 90 tablet 3 metoprolol succinate ER (TOPROL XL) 50 mg 24 hr tablet Take 1 tablet by mouth every morning AND 0.5 tablets every afternoon. 135 tablet 3 nortriptyline (PAMELOR) 25 mg capsule Take 1 capsule by mouth daily at bedtime. 90 capsule 3 omeprazole (PRILOSEC) 20 mg capsule Take 1 capsule by mouth twice daily. 1/2 HR BEFORE MEAL. 180 capsule 3 estradiol (ESTRACE) 0.01 % (0.1 mg/gram) vaginal cream Use 1 g vaginally daily at bedtime for 14 days, THEN 1 g two times a week. 42.5 g 2 cholecalciferol (VITAMIN D3) 50 mcg (2,000 unit) tablet Take 2,000 Units by mouth once daily. polyethylene glycol 3350 (MIRALAX, GLYCOLAX) 17 gram/dose powder Take 17 g by mouth once daily. 3 Bottle 3 aspirin, enteric coated (ASPIRIN, ENTERIC COATED) 81 mg EC tablet Take 1 tablet by mouth once daily. 0 Methylcellulose, Laxative, 500 mg tab TAKE TWO TABLETS TWICE DAILY 0 omega-3 fatty acids/vitamin e(FISH OIL 1,000 MG CAP) Take one(1) tablet daily. 1 0 THERAPEUTIC MULTIVITAMIN TAB Take one(1) tablet daily. 0 trimethoprim (PROLOPRIM) 100 mg tablet Take 1 tablet by mouth once daily. (Patient not taking: Reported on 06/08/2022) 30 tablet 2 clobetasol (TEMOVATE) 0.05 % ointment Apply to vulva twice daily for four weeks. Then, apply daily for four weeks. Then, apply three times per week for four weeks. Then apply twice weekly. (Patient not taking: No sig reported) 60 g 2 No current facility-administered medications for this visit. ALLERGIES: Fosamax [Alendronate Sodium], Codeine, Niacin, Sulfa (Sulfonamide Antibiotics), Vioxx [Rofecoxib], Zyrtec [Cetirizine Hcl], Celebrex [Celecoxib], Grass Pollen, Nitrofurantoin Monohyd/M-Cryst, and Penicillins PERSONAL HISTORY: Social History Tobacco Use Smoking status: Never Smokeless tobacco: Never Vaping Use Vaping Use: Never used Substance Use Topics Alcohol use: No Drug use: No FAMILY HISTORY: FAMILY HISTORY Problem Relation Age of Onset Heart Father Cancer Father leukemia Hypertension Mother congestive heart failure Thyroid Mother Cataract Mother Hypertension Brother Heart Grandchild mitral valve prolapse Cataract Sister other (cerebral hem) Sister Diabetes Daughter REVIEW OF SYMPTOMS: The review of systems data was entered by the nurse and reviewed by dc Nursing Notes: Katieyolie Ohara 08/17/2022 8:32 AM Signed REVIEW OF SYSTEMS: General: The patient NOTES fatigue, denies weight loss, denies weight gain, denies feeling hot, and denies feelings of cold. Eyes: The patient denies glaucoma, NOTES eye injury/surgery, wears glasses or contacts. Ear/Nose/Throat: The patient denies allergies, denies hayfever, denies ear infections, and denies bloody noses. Cardiovascular: The patient denies chest pain, denies heart disease, NOTES high blood pressure,denies cardiac stent, denies prior heart attack, denies irregular heart beat, NOTES high cholesterol, NOTES poor circulation, denies heart failure, other cardiac issues, NOTES claudication, NOTES cold feet, denies peripheral arterial stent. Respiratory: The patient denies tuberculosis, denies pneumonia, denies frequent cough, denies pulmonary embolism, NOTES shortness of breath, and denies coughing up blood. Gastrointestinal: The patient denies difficulty swallowing, NOTES acid reflux, denies ulcers, denies vomiting, denies jaundice/hepatitis, NOTES gallbladder problems, denies black or tarry stools, NOTES hemorrhoids, denies bleeding from rectum, NOTES diverticulitis, NOTES constipation, denies diarrhea, NOTES loss of stool control, and denies hernias. Kidney/Bladder: The patient denies kidney stones, denies urine infections, and denies bloody urine. Skin: The patient NOTES a history of skin cancer, denies bleeding/changing moles, and NOTES a history of skin rash. Neurologic: The patient denies a history of epilepsy/convulsions, NOTES headaches, denies head/spinal injuries, and denies stroke/TIA. Psychiatric: The patient denies psychiatric medications, denies depression, and denies voices, denies substance abuse. Endocrine: The patient denies thyroid disorders, denies diabetes, and denies hormonal problems. Hematologic: The patient denies a history of bruising, denies bleeding, and denies anemia, denies blood clots. Infections: The patient NOTES a history of measles and mumps, denies rheumatic fever, and denies sexually transmitted diseases. Musculoskeletal: The patient NOTES back pain/injury, NOTES back problems, NOTES sciatica, NOTES knee/foot trouble, NOTES arthritis, or denies gout. When was patient's last Mammogram screening? 08/11/2022 Last Colonoscopy: 08/2016 Katie Ohara PHYSICAL EXAMINATION: General: The patient is 81 year old female, well nourished, well hydrated in no acute distress. The patient is oriented to time, place, and person. VITALS: Blood pressure 158/78, pulse 78, temperature 36.4 C (97.6 F), temperature source Temporal, resp. rate (!) 100, height 161.3 cm (5' 3.5), weight 73.2 kg (161 lb 6.4 oz). Body mass index is 28.14 kg/m . HEENT: Normal cephalic, ataumatic, pupils are equally round, sclera are anicteric, mucous membranes are moist, oropharynx is clear. Neck has no masses, asymmetry or lymphadenopathy. Thyroid is unremarkable. Respiratory: Clear to auscultation and percussion. Normal respiratory excursion and pattern. Cardiac: Examination is regular rate and rhythm. Abdominal exam: Soft, nontender, with no palpable masses. No hepatosplenomegaly. No palpable hernias. Rectal exam: exam deferred Extremities: no clubbing, cyanosis or edema. No adenopathy. Breast: Visual inspection reveals no retractions, nipple inversion, or skin changes. Palpation of the right breast reveals no dominant or suspicious masses. Palpation of the left breast reveals no dominant or suspicious masses. Axillary exam demonstrates no suspicious masses in either the left or right axilla. There is no nipple discharge expressed from either the left or right breast. LABORATORY VALUES: As Noted RADIOLOGIC STUDIES: As Noted Assessment IMPRESSION: Microcalcifications of the breast (primary encounter diagnosis) PLAN: I plan to perform a stereotactic biopsy of the left breast. The planned surgical procedure was discussed extensively with the patient. The risks, benefits, anticipated outcomes and possible complications were mentioned. My staff has also explained the procedure in understandable terms and the patient was given the option to take printed material concerning the planned procedure. The patient had the opportunity to ask questions concerning the planned procedure. The patient freely consents to the planned procedure. Diagnoses: (R92.0) Microcalcifications of the breast (primary encounter diagnosis) My findings have been communicated to Dr. Preston Haney MD via shared medical record. This note will be forwarded to Dr. Preston Haney MD. Return to Clinic: The patient is instructed to follow-up with me 1 week post operatively. Miah Mart III, MD documented in this encounter [facility] 08-17-2022 Nurse Note REVIEW OF SYSTEMS: General: The patient NOTES fatigue, denies weight loss, denies weight gain, denies feeling hot, and denies feelings of cold. Eyes: The patient denies glaucoma, NOTES eye injury/surgery, wears glasses or contacts. Ear/Nose/Throat: The patient denies allergies, denies hayfever, denies ear infections, and denies bloody noses. Cardiovascular: The patient denies chest pain, denies heart disease, NOTES high blood pressure,denies cardiac stent, denies prior heart attack, denies irregular heart beat, NOTES high cholesterol, NOTES poor circulation, denies heart failure, other cardiac issues, NOTES claudication, NOTES cold feet, denies peripheral arterial stent. Respiratory: The patient denies tuberculosis, denies pneumonia, denies frequent cough, denies pulmonary embolism, NOTES shortness of breath, and denies coughing up blood. Gastrointestinal: The patient denies difficulty swallowing, NOTES acid reflux, denies ulcers, denies vomiting, denies jaundice/hepatitis, NOTES gallbladder problems, denies black or tarry stools, NOTES hemorrhoids, denies bleeding from rectum, NOTES diverticulitis, NOTES constipation, denies diarrhea, NOTES loss of stool control, and denies hernias. Kidney/Bladder: The patient denies kidney stones, denies urine infections, and denies bloody urine. Skin: The patient NOTES a history of skin cancer, denies bleeding/changing moles, and NOTES a history of skin rash. Neurologic: The patient denies a history of epilepsy/convulsions, NOTES headaches, denies head/spinal injuries, and denies stroke/TIA. Psychiatric: The patient denies psychiatric medications, denies depression, and denies voices, denies substance abuse. Endocrine: The patient denies thyroid disorders, denies diabetes, and denies hormonal problems. Hematologic: The patient denies a history of bruising, denies bleeding, and denies anemia, denies blood clots. Infections: The patient NOTES a history of measles and mumps, denies rheumatic fever, and denies sexually transmitted diseases. Musculoskeletal: The patient NOTES back pain/injury, NOTES back problems, NOTES sciatica, NOTES knee/foot trouble, NOTES arthritis, or denies gout. When was patient's last Mammogram screening? 08/11/2022 Last Colonoscopy: 08/2016 Katie Ohara documented in this encounter [facility] 07-14-2022 Miscellaneous Notes Patient has been identified by name and date of : Yes Patient phones for refill(s): Requested Prescriptions Pending Prescriptions Disp Refills calcitriol (ROCALTROL) 0.25 mcg capsule 90 capsule 3 Sig: Take 1 capsule by mouth once daily. lisinopril-hydroCHLOROthiazide (PRINZIDE,ZESTORETIC) 20-12.5 mg per tablet 180 tablet 3 Sig: Take 1 tablet by mouth twice daily. ( adjusted dose and sent RX) lovastatin 40 mg tablet 90 tablet 3 Sig: Take 1 tablet by mouth daily at bedtime. metoprolol succinate ER (TOPROL XL) 50 mg 24 hr tablet 135 tablet 3 Sig: Take 1 tablet by mouth every morning AND 0.5 tablets every afternoon. nortriptyline (PAMELOR) 25 mg capsule 90 capsule 3 Sig: Take 1 capsule by mouth daily at bedtime. omeprazole (PRILOSEC) 20 mg capsule 180 capsule 3 Sig: Take 1 capsule by mouth twice daily. 1/2 HR BEFORE MEAL. Date of last office visit in primary care: 06/08/2022 6 month follow-up: 02/07/2023 Last 2 Encounter Wt Readings: Date: Wt: 06/08/2022 73 kg (161 lb) 12/15/2021 71.7 kg (158 lb) Previous labs/tests for medication: Cholesterol: HDL Cholesterol (mg/dL) Date Value 11/26/2021 58 05/02/2021 59 HDL Cholesterol, Nonfasting (mg/dL) Date Value 06/08/2022 56 LDL Cholesterol (mg/dL) Date Value 05/02/2021 78 LDL Cholesterol, Nonfasting (mg/dL) Date Value 06/08/2022 68 ALT (U/L) Date Value 06/08/2022 15 05/02/2021 14 Non HDL Cholesterol, Nonfasting (mg/dL) Date Value 06/08/2022 131 Non HDL Cholesterol (mg/dL) Date Value 11/26/2021 118 05/02/2021 127 Blood Pressure: BUN (mg/dL) Date Value 06/08/2022 16 05/02/2021 17 Sodium (mmol/L) Date Value 06/08/2022 130 05/02/2021 136 Last 1 Encounter BP Readings: Date: BP: 06/08/2022 132/60 Please advise. Thank you. Lady Santos LPN Patient has been identified by name and date of : Yes Last office visit in this department: 06/08/2022 RX INSTRUCTIONS: Patient aware RX escripted to mail away pharmacy. No need to notify patient. Patient phones requesting refills as follows: Requested Prescriptions Pending Prescriptions Disp Refills calcitriol (ROCALTROL) 0.25 mcg capsule 90 capsule 3 Sig: Take 1 capsule by mouth once daily. lisinopril-hydroCHLOROthiazide (PRINZIDE,ZESTORETIC) 20-12.5 mg per tablet 180 tablet 3 Sig: Take 1 tablet by mouth twice daily. ( adjusted dose and sent RX) lovastatin 40 mg tablet 90 tablet 3 Sig: Take 1 tablet by mouth daily at bedtime. metoprolol succinate ER (TOPROL XL) 50 mg 24 hr tablet 135 tablet 3 Sig: Take 1 tablet by mouth every morning AND 0.5 tablets every afternoon. nortriptyline (PAMELOR) 25 mg capsule 90 capsule 3 Sig: Take 1 capsule by mouth daily at bedtime. omeprazole (PRILOSEC) 20 mg capsule 180 capsule 3 Sig: Take 1 capsule by mouth twice daily. 1/2 HR BEFORE MEAL. Please review and advise. Funmilayo Weber Pss documented in this encounter [facility] 07-14-2022 Miscellaneous Notes Patient will call back to update pharmacy. documented in this encounter [facility] 07-09-2022 History of Present illness Narrative Radiology Service Progress Note PATIENT NAME: Concepcion Donaldson DATE OF SERVICE: July 09, 2022 TIME: 10:04 AM PATIENT IDENTITY VERIFICATION COMPLETED USING TWO (2) IDENTIFIERS: Name and Date of confirmed by patient verbally. FALL SCREENING: Has the patient had 2 falls in the last year or 1 fall with injury or currently using an Ambulatory Assistive Device (Walker, Cane, Wheelchair, Crutches, etc.)? No PATIENT GENDER DATA: Female. status: : No status: NO. PATIENT RELEVANT IMPLANT DATA REVIEWED: Not Applicable RADIOLOGY DEPARTMENT: Mammography PERIPHERAL IV DATA: Not applicable SIGNED BY: RT Raquel(R) July 09, 2022 10:04 AM documented in this encounter [facility] 06-18-2022 Miscellaneous Notes Patient calling asking that copy of urine culture from 06/08/[address] Owusu office at [phone]. Printed and faxed as requested. documented in this encounter [facility] 06-11-2022 Miscellaneous Notes Patient informed. Jasson Polk Ma Keflex prescribed for treatment of UTI. Please inform pt. Blanca Munoz MD documented in this encounter [facility] 06-11-2022 Miscellaneous Notes Patient returns call and provider message reviewed. All questions answered. Patient verbalizes understanding with no further questions at this time. Message left for patient to call PCP office for provider's message below. Rita Patiño RN Recent labwork overall in acceptable range. A1c and triglycerides are elevated. Would recommend avoiding sugary foods and drinks in diet and exercise such as walking daily as able can help keep both in control. Sodium/chloride are low. If sodium/chloride continue to trend downward may need to discontinue HCTZ, known to cause hyponatremia. Free water should be ~2L/day. recheck with next labs (BMP or CMP) Component Latest Ref Rng & Units 11/26/2021 06/08/2022 WBC 3.70 - 11.00 k/uL 4.92 5.92 RBC 3.90 - 5.20 m/uL 5.20 5.09 Hemoglobin 11.5 - 15.5 g/dL 15.2 15.3 Hematocrit 36.0 - 46.0 % 45.0 44.5 MCV 80.0 - 100.0 fL 86.5 87.4 MCH 26.0 - 34.0 pg 29.2 30.1 MCHC 30.5 - 36.0 g/dL 33.8 34.4 RDW-CV 11.5 - 15.0 % 13.1 13.1 Platelet Count 150 - 400 k/uL 185 192 MPV 9.0 - 12.7 fL 10.5 11.1 Neut% % 62.2 Abs Neut (ANC) 1.45 - 7.50 k/uL 3.68 Lymph% % 18.6 Abs Lymph 1.00 - 4.00 k/uL 1.10 Jerome% % 12.8 Abs Jerome <0.87 k/uL 0.76 Eosin% % 4.6 Abs Eosin <0.46 k/uL 0.27 Baso% % 1.0 Abs Baso <0.11 k/uL 0.06 Immature Gran % % 0.8 IMMATURE GRANS (ABS) <0.10 k/uL 0.05 NRBC /100 WBC 0.0 Absolute nRBC <0.01 k/uL <0.01 <0.01 DTYPE Auto Protein, Total 6.3 - 8.0 g/dL 7.5 7.1 Albumin 3.9 - 4.9 g/dL 4.5 4.4 Calcium 8.5 - 10.2 mg/dL 9.7 9.9 Bilirubin, Total 0.2 - 1.3 mg/dL 0.4 0.4 Alkaline Phosphatase 34 - 123 U/L 49 47 AST 13 - 35 U/L 25 28 ALT 7 - 38 U/L 16 15 Glucose 74 - 99 mg/dL 109 (H) 72 (L) BUN 7 - 21 mg/dL 16 16 Creatinine 0.58 - 0.96 mg/dL 0.89 0.82 Sodium 136 - 144 mmol/L 132 (L) 130 (L) Potassium 3.7 - 5.1 mmol/L 4.0 4.2 Chloride 97 - 105 mmol/L 94 (L) 93 (L) CO2 22 - 30 mmol/L 25 25 Anion Gap 9 - 18 mmol/L 13 12 eGFR >=60 mL/min/1.73m 66 72 Cholesterol, Total <200 mg/dL 176 Triglyceride <150 mg/dL 207 (H) HDL Cholesterol >39 mg/dL 58 Non HDL Cholesterol <130 mg/dL 118 Fasting Time hrs 12 VLDL Cholesterol <30 mg/dL 41 (H) TC:HDL Ratio <5.10 3.03 LDL Cholesterol <100 mg/dL 77 LDL:HDL Ratio <2.54 1.33 Total Cholesterol, Nonfasting <200 mg/dL 187 Triglycerides, Nonfasting <150 mg/dL 315 (H) HDL Cholesterol, Nonfasting >39 mg/dL 56 LDL Cholesterol, Nonfasting <100 mg/dL 68 Non HDL Cholesterol, Nonfasting <130 mg/dL 131 (H) VLDL Cholesterol, Nonfasting <30 mg/dL 63 (H) Total Chol/HDL Ratio, Nonfasting <5.10 mg/dL 3.34 LDL/HDL Ratio, Nonfasting <2.54 mg/dL 1.21 Hemoglobin A1C 4.3 - 5.6 % 5.8 (H) 5.7 (H) Estimated Average Glucose mg/dL 120 117 Vitamin D 25 Hydroxy 31.0 - 80.0 ng/mL 76.3 documented in this encounter [facility] 06-08-2022 History of Present illness Narrative SUBJECTIVE: SHINGRIX VACCINE(2 of 3) due on 07/06/2013 DEPRESSION ASSESSMENT Never done COVID-19 VACCINE(5 - Booster for Pfizer series) due on 02/04/2022 INFLUENZA(1) due on 03/11/2022 HPI Concepcion Donaldson is a 81 year old female. 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 Was referred to GI for fecal incontinence, alternating constipation and diarrhea. Treated with suppressive therapy for recurrent UTI. No evidence of kidney stone on CT. Ordered suppressive medication for recurrent UTI. States chronic constipation x15 years. Seen by gastroenterology: Dr. Jay. Medication changes: no Enema once per week. Then mineral oil advised, states nausea could not adhere always. Continues with fiber with alphonso seeds, Miralax Has upcoming appointment with GI Testing: states none HTN: Without report of headache, chest pain, palpitations, dyspnea, peripheral edema, orthopnea, fatigue, and PND. Last 3 Encounter BP Readings: Date: BP: 12/15/2021 118/78 12/01/2021 140/70 09/08/2021 146/72 Hyperlipidemia. Ms. Donaldson reports doing well on current therapy . Her most recent lipid panels are: Cholesterol, Total (mg/dL) Date Value 11/26/2021 176 05/02/2021 186 10/16/2020 185 HDL Cholesterol (mg/dL) Date Value 11/26/2021 58 05/02/2021 59 10/16/2020 57 LDL Cholesterol (mg/dL) Date Value 11/26/2021 77 05/02/2021 78 10/16/2020 78 Triglyceride (mg/dL) Date Value 11/26/2021 207 05/02/2021 247 10/16/2020 250 She reports chronic leg pain. Has varicosities. States vein stripping on right in the 1970s, not completed on the left. Wears light compression which does not seem to help much. Does have some pain and fatigue with walking, cannot walk as far she used to. States using Theraworx, helps somewhat. Chronic low back pain. States seen by Dr Curiel, states injection did not help much in past, only lasted a couple week, not interested in going back. Prefers to avoid PT, follow up with spine or pain provider. Does not want to try medication at this time. Review of Systems Constitutional: Negative. Objective BP 132/60 Pulse 72 Resp 16 Wt 73 kg (161 lb) BMI 28.07 kg/m Physical Exam Vitals and nursing note reviewed. Constitutional: Appearance: Normal appearance. HENT: Head: Normocephalic and atraumatic. Eyes: Conjunctiva/sclera: Conjunctivae normal. Cardiovascular: Rate and Rhythm: Normal rate and regular rhythm. Heart sounds: Normal heart sounds. Pulmonary: Effort: Pulmonary effort is normal. Breath sounds: Normal breath sounds. Abdominal: General: Bowel sounds are normal. Palpations: Abdomen is soft. Musculoskeletal: Right lower leg: No edema. Left lower leg: No edema. Skin: General: Skin is warm and dry. Neurological: General: No focal deficit present. Mental Status: She is alert and oriented to person, place, and time. ALLERGIES Allergen Reactions Fosamax [Alendronat* Intolerance Codeine Intolerance Niacin Intolerance Sulfa (Sulfonamide * Intolerance Stomach pain Vioxx [Rofecoxib] Intolerance Zyrtec [Cetirizine * Intolerance Celebrex [Celecoxib] Rash Grass Pollen scratchy throat Nitrofurantoin Jerome* Intolerance Stomach pain Penicillins Hives Medications trimethoprim (PROLOPRIM) 100 mg tablet Take 1 tablet by mouth once daily. clobetasol (TEMOVATE) 0.05 % ointment Apply to vulva twice daily for four weeks. Then, apply daily for four weeks. Then, apply three times per week for four weeks. Then apply twice weekly. estradiol (ESTRACE) 0.01 % (0.1 mg/gram) vaginal cream Use 1 g vaginally daily at bedtime for 14 days, THEN 1 g two times a week. calcitriol (ROCALTROL) 0.25 mcg capsule Take 1 capsule by mouth once daily. lisinopril-hydroCHLOROthiazide (PRINZIDE,ZESTORETIC) 20-12.5 mg per tablet Take 1 tablet by mouth twice daily. ( adjusted dose and sent RX) lovastatin 40 mg tablet Take 1 tablet by mouth daily at bedtime. metoprolol succinate ER (TOPROL XL) 50 mg 24 hr tablet Take 1 tablet by mouth every morning AND 0.5 tablets every afternoon. nortriptyline (PAMELOR) 25 mg capsule Take 1 capsule by mouth daily at bedtime. omeprazole (PRILOSEC) 20 mg capsule Take 1 capsule by mouth twice daily. 1/2 HR BEFORE MEAL. cholecalciferol (VITAMIN D-3) 50 mcg (2,000 unit) tablet Take 2,000 Units by mouth once daily. polyethylene glycol 3350 (MIRALAX, GLYCOLAX) 17 gram/dose powder Take 17 g by mouth once daily. aspirin, enteric coated (ASPIRIN, ENTERIC COATED) 81 mg EC tablet Take 1 tablet by mouth once daily. Methylcellulose, Laxative, (CITRUCEL) 500 mg ORAL Tab TAKE TWO TABLETS TWICE DAILY omega-3 fatty acids/vitamin e(FISH OIL 1,000 MG CAP) Take one(1) tablet daily. THERAPEUTIC MULTIVITAMIN TAB Take one(1) tablet daily. 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 Clemons Social History Tobacco Use Smoking status: Never Smokeless tobacco: Never Vaping Use Vaping Use: Never used Substance Use Topics Alcohol use: No Drug use: No Component Latest Ref Rng & Units 11/26/2021 Protein, Total 6.3 - 8.0 g/dL 7.5 Albumin 3.9 - 4.9 g/dL 4.5 Calcium 8.5 - 10.2 mg/dL 9.7 Bilirubin, Total 0.2 - 1.3 mg/dL 0.4 Alkaline Phosphatase 34 - 123 U/L 49 AST 13 - 35 U/L 25 ALT 7 - 38 U/L 16 Glucose 74 - 99 mg/dL 109 (H) BUN 7 - 21 mg/dL 16 Creatinine 0.58 - 0.96 mg/dL 0.89 Sodium 136 - 144 mmol/L 132 (L) Potassium 3.7 - 5.1 mmol/L 4.0 Chloride 97 - 105 mmol/L 94 (L) CO2 22 - 30 mmol/L 25 Anion Gap 9 - 18 mmol/L 13 eGFR >=60 mL/min/1.73m 66 WBC 3.70 - 11.00 k/uL 4.92 RBC 3.90 - 5.20 m/uL 5.20 Hemoglobin 11.5 - 15.5 g/dL 15.2 Hematocrit 36.0 - 46.0 % 45.0 MCV 80.0 - 100.0 fL 86.5 MCH 26.0 - 34.0 pg 29.2 MCHC 30.5 - 36.0 g/dL 33.8 RDW-CV 11.5 - 15.0 % 13.1 Platelet Count 150 - 400 k/uL 185 MPV 9.0 - 12.7 fL 10.5 Absolute nRBC <0.01 k/uL <0.01 Cholesterol, Total <200 mg/dL 176 Triglyceride <150 mg/dL 207 (H) HDL Cholesterol >39 mg/dL 58 Non HDL Cholesterol <130 mg/dL 118 Fasting Time hrs 12 VLDL Cholesterol <30 mg/dL 41 (H) TC:HDL Ratio <5.10 3.03 LDL Cholesterol <100 mg/dL 77 LDL:HDL Ratio <2.54 1.33 Hemoglobin A1C 4.3 - 5.6 % 5.8 (H) Estimated Average Glucose mg/dL 120 Vitamin D 25 Hydroxy 31.0 - 80.0 ng/mL 76.3 ASSESSMENT/PLAN: 1. Primary hypertension - ICD9: 401.9, ICD10: I10 (primary diagnosis) - good control - Continue current medication(s) - Encouraged dietary sodium restriction/DASH diet - Recommended regular aerobic exercise. - COMP METABOLIC PANEL - CBC + DIFF 2. Need for shingles vaccine - ICD9: V04.89, ICD10: Z23 3. Encounter for immunization - ICD9: V03.89, ICD10: Z23 4. Mixed hyperlipidemia - ICD9: 272.2, ICD10: E78.2 Recommend a plant based diet such as Mediterranean diet with plenty of vegetables, fruits,whole grains, fish, chicken, turkey or plant proteins and routine exercise such as walking - COMP METABOLIC PANEL - LIPID PANEL, NONFASTING 5. Irritable bowel syndrome with both constipation and diarrhea - ICD9: 564.1, ICD10: K58.2 Dr Friend following 6. IFG (impaired fasting glucose) - ICD9: 790.21, ICD10: R73.01 - HGB A1C Labs today. 6 mo follow up Preston Haney MD Declines any changes in treatment today. Declines refills of medications today, wants to wait for new insurance in July Elisabeth Hoff APRN.HOLISTIC NUTRITIONIST Medical Decision Making: Problems: Moderate: 2+ stable chronic illnesses Data: Unique test(s) ordered: 3+ Risk: Moderate: Drug management Medical Decision Making Level: 4 - Moderate documented in this encounter [facility] 02-16-2022 Miscellaneous Notes Called pt and results given. Per pt she is unsure if she will take antibiotics. She might wait until seeing urologist next week. Tiffany Da Silva RN Advise patient urine culture confirms a UTI. Keflex prescription sent to pharmacy. Laura Shepard APRN.CNP documented in this encounter [facility] 01-24-2022 Miscellaneous Notes Spoke with patient at length about urine culture results. I sent her in keflex due to extensive list of allergies and sensitivities. She has previously tolerated keflex. She otherwise feels fine with no complaints. Ailin Naranjo MD documented in this encounter [facility] 01-21-2022 Miscellaneous Notes Patient notified of CT results and urine culture order. Lucille Gilliland Cma Left message for patient to return call Lucille Gilliland Cma Urine culture order signed. Advised patient CT scan does not indicate a kidney stone. There are some findings (moderate hydronephrosis and renal cyst) that have not changed since CT 2017 which I will review with Dr. Munoz and let her know if we need to do anything additional. Laura Shepard APRN.[employer] CLERK Pt called in asking for recent CT scan results. And also pt says she is having UTI symptoms came back. Asking for urine analysis. Urine culture pended Farhad Arredondo MA documented in this encounter [facility] 01-08-2022 History of Present illness Narrative Radiology Service Progress Note PATIENT NAME: Concepcion Donaldson DATE OF SERVICE: January 08, 2022 TIME: 9:23 AM PATIENT IDENTITY VERIFICATION COMPLETED USING TWO (2) IDENTIFIERS: Name and Date of confirmed by patient verbally. FALL SCREENING: Has the patient had 2 falls in the last year or 1 fall with injury or currently using an Ambulatory Assistive Device (Walker, Cane, Wheelchair, Crutches, etc.)? No PATIENT GENDER DATA: Female. status: : No status: NO. PATIENT RELEVANT IMPLANT DATA REVIEWED: Not Applicable RADIOLOGY DEPARTMENT: CT; Exam(s) Completed: Abdomen/Pelvis PERIPHERAL IV DATA: Not applicable SIGNED BY: RT Riri(R) January 08, 2022 9:23 AM documented in this encounter [facility] 12-18-2021 Miscellaneous Notes Spoke with patient regarding urine culture results. Plan treatment with Keflex then suppression with Trimethoprim (due to allergies). States she had an allergic reaction to PCN in the 70s. Advise patient we will try Keflex and if she has any concerns for a reaction she is to stop it and call. She understands. Laura Shepard APRN.CNP documented in this encounter [facility] 12-15-2021 Note HNO ID: [id number] Author: Blanca Munoz MD Service: ? Author Type: Physician Type: Progress Notes Filed: 12/23/2021 12:51 PM Note Text: Female Pelvic Medicine AND Reconstructive Surgery Follow-Up Concepcion Donaldson is a 80 year old female, who presents for a follow-up of recurrent UTI, lichen planus-like vulvar dermatitis, OAB, FI. Last visit 09/08/21: 1. Vulvar lesion - Specimens labeled and sent to Pathology. Will notify patient of results in 1-2 weeks. Post-procedure instructions reviewed and written material given to the patient. - SURGICAL PATHOLOGY ? 2. Lichen planus-like dermatitis - Continue clobetasol taper - SURGICAL PATHOLOGY ? 3. Acute cystitis without hematuria - Suspect relapsing UTI. Await urine culture results for treatment. May consider extended course of 7-10 days. - URINE CULTURE - URINALYSIS, WITH MICROSCOPIC ? 4. Recurrent UTI - Start Hiprex after treatment of acute cystitis as above - Continue vaginal estrogen - Methenamine Hippurate (HIPREX) 1 gram tablet; Take 1 tablet by mouth twice daily with meals. Dispense: 180 tablet; Refill: 3 ? 5. OAB (overactive bladder) - Reassess after treatment of relapsing UTI - Baseline bladder diary reviewed and to be scanned into Triptrotting ? 6. Full incontinence of feces - Schedule GI appointment as previously discussed ? 7. Alternating constipation and diarrhea - As above #6 ? 8. Vaginal atrophy - Continue vaginal estrogen History since last visit: Uncomfortable feeling, especially when she needs to void. Feels symptomatic of another UTI. She is concerned that she could have a kidney stone contributing to recurring infections. Urine cultures: 08/25/21 K pneumo 09/08/21 K pneumo 11/26/21 K pneumo Urinary Incontinence: yes, Voiding Dysfunction: no Urinary Frequency: no Urinary Urgency: yes Prolapse Symptoms: no Defecatory Dysfunction: yes Fecal Incontinence: yes Abnormal Bleeding: no Pain: no Abnormal Vaginal Discharge: no VISUAL STYLIST HISTORY: Last Pap: Date:N/A; Last Mammogram: Her last mammogram was 07/21/21. She has a previous history of an abnormal mammogram. LMP: No LMP recorded. Patient has had a hysterectomy.; Menopause post: Menstrual history: NA; Deliveries: 1 x I have confirmed and edited as necessary, the PFSH obtained by others. Blanca Munoz MD Manager Balance offered: Patient accepts, visit chaperoned by Lucille Gilliland MA. OBJECTIVE: BP 118/78 Ht 5' 3.5 (1.61m) Wt 158 lb (71.7kg) BMI 27.55 kg/(m2). General: Well appearing, alert, in no acute distress, well-hydrated, well nourished. Abdomen: Deferred Pelvic: Ext. Genitalia: no lesions Vagina: atrophic epithelium with estrogen effect Urine dip trace blood, +nitrite, small leuk Impression: Concepcion Donaldson is a 80 year old female with recurrent UTI, acute cystitis, lichen planus-like vulvar dermatitis, OAB, FI. Plan: 1. Recurrent UTI - Discussed stopping Hiprex and starting low dose daily antibiotic suppression for recurrent UTIs after treatment of current acute cystitis. - CT FLANK WO IVCON; Future 2. Acute cystitis without hematuria - Await culture results for treatment - URINE CULTURE - URINALYSIS, WITH MICROSCOPIC 3. Lichen planus-like dermatitis - Continue clobetasol, vaginal estrogen 4. OAB (overactive bladder) - Reevaluate symptoms once recurrent UTIs have been suppressed 5. Full incontinence of feces - GI evaluation as next step as previously recommended due to alternating constipation and diarrhea Medical Decision Making: Problems: Moderate: 2+ stable chronic illnesses Data: Unique test result(s) reviewed: 3+ Unique test(s) ordered: 2 Risk: Low: Low risk from testing/treatment Medical Decision Making Level: 4 - Moderate Blanca Munoz MD [facility] 12-01-2021 Miscellaneous Notes Pt advised of recommendations Please inform pt she can hold Hiprex while taking Cipro then restart after completing antibiotics. Blanca Munoz MD documented in this encounter [facility] 12-01-2021 History of Present illness Narrative This note was created using Cyzoneriter. Subjective Concepcion Donaldson is a 80 year old female. Patient presents with: F/U 6 months SUBJECTIVE: Concepcion Donaldson is a 80 year old year old lady here today for 6 month follow up appointment for review of medical conditions. PAD screening done by [employer] showed normal --Left 0.98 and right 1.01. The nurse went to her home 11/02/2021. Has had UTI for the past 1 to [address] Ann to [facility]. Reviewed that was placed on Hiprex for UTI prophylaxis. Developed recurrent UTI symptoms (discomfort; hard to tell with urgency and frequency since has that even when no UTI). Got Urine Culture Grew E. Coli. Just started antibiotic yesterday. Not quite getting 8 cups of water. Does have night nocturia with urgency.About every 2 to 3 hours. Constipation still. Alphonso seeds along with Miralax and Citrucel is helping. NOt needing too much stool softeners or Fleets. 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 Clemons Current Outpatient Medications Medication Sig ciprofloxacin HCl (CIPRO) 250 mg tablet Take 1 tablet by mouth twice daily for 5 days. Methenamine Hippurate (HIPREX) 1 gram tablet Take 1 tablet by mouth twice daily with meals. clobetasol (TEMOVATE) 0.05 % ointment Apply to vulva twice daily for four weeks. Then, apply daily for four weeks. Then, apply three times per week for four weeks. Then apply twice weekly. estradiol (ESTRACE) 0.01 % (0.1 mg/gram) vaginal cream Use 1 g vaginally daily at bedtime for 14 days, THEN 1 g two times a week. calcitriol (ROCALTROL) 0.25 mcg capsule Take 1 capsule by mouth once daily. lisinopril-hydroCHLOROthiazide (PRINZIDE,ZESTORETIC) 20-12.5 mg per tablet Take 1 tablet by mouth twice daily. ( adjusted dose and sent RX) lovastatin 40 mg tablet Take 1 tablet by mouth daily at bedtime. metoprolol succinate ER (TOPROL XL) 50 mg 24 hr tablet Take 1 tablet by mouth every morning AND 0.5 tablets every afternoon. nortriptyline (PAMELOR) 25 mg capsule Take 1 capsule by mouth daily at bedtime. omeprazole (PRILOSEC) 20 mg capsule Take 1 capsule by mouth twice daily. 1/2 HR BEFORE MEAL. cholecalciferol (VITAMIN D-3) 50 mcg (2,000 unit) tablet Take 2,000 Units by mouth once daily. polyethylene glycol 3350 (MIRALAX, GLYCOLAX) 17 gram/dose powder Take 17 g by mouth once daily. aspirin, enteric coated (ASPIRIN, ENTERIC COATED) 81 mg EC tablet Take 1 tablet by mouth once daily. Methylcellulose, Laxative, (CITRUCEL) 500 mg ORAL Tab TAKE TWO TABLETS TWICE DAILY omega-3 fatty acids/vitamin e(FISH OIL 1,000 MG CAP) Take one(1) tablet daily. THERAPEUTIC MULTIVITAMIN TAB Take one(1) tablet daily. No current facility-administered medications for this visit. Review of Systems Objective BP 142/84 Pulse 62 Wt 73 kg (161 lb) BMI 28.52 kg/m Last 5 Encounter Wt Readings: Date: Wt: 12/01/2021 73 kg (161 lb) 09/08/2021 71.2 kg (157 lb) 08/25/2021 71.2 kg (157 lb) 07/18/2021 73 kg (161 lb) 06/26/2021 72.6 kg (160 lb) No waist measurement recorded Estimated body mass index is 28.52 kg/m as calculated from the following: Height as of 09/08/21: 160 cm (5' 3). Weight as of this encounter: 73 kg (161 lb). Last 5 Encounter BP Readings: Date: BP: 12/01/2021 142/84 09/08/2021 146/72 07/18/2021 128/62 06/26/2021 144/80 05/04/2021 118/62 12/01/21 0926 12/01/21 1030 BP: 142/84 140/70 Pulse: 62 Weight: 73 kg (161 lb) Physical Exam Constitutional: Appearance: Normal appearance. HENT: Head: Normocephalic. Eyes: Conjunctiva/sclera: Conjunctivae normal. Cardiovascular: Rate and Rhythm: Normal rate and regular rhythm. Heart sounds: Normal heart sounds. Pulmonary: Effort: Pulmonary effort is normal. Breath sounds: Normal breath sounds. Skin: General: Skin is warm and dry. Neurological: General: No focal deficit present. Mental Status: She is alert and oriented to person, place, and time. Psychiatric: Mood and Affect: Mood normal. Behavior: Behavior normal. Thought Content: Thought content normal. Judgment: Judgment normal. Component Latest Ref Rng & Units 05/02/2021 11/26/2021 Protein, Total 6.3 - 8.0 g/dL 7.6 7.5 Albumin 3.9 - 4.9 g/dL 4.5 4.5 Calcium 8.5 - 10.2 mg/dL 10.4 (H) 9.7 Bilirubin, Total 0.2 - 1.3 mg/dL 0.5 0.4 Alkaline Phosphatase 34 - 123 U/L 51 49 AST 13 - 35 U/L 24 25 Glucose 74 - 99 mg/dL 95 109 (H) BUN 7 - 21 mg/dL 17 16 Creatinine 0.58 - 0.96 mg/dL 0.92 0.89 Sodium 136 - 144 mmol/L 136 132 (L) Potassium 3.7 - 5.1 mmol/L 3.8 4.0 Chloride 97 - 105 mmol/L 96 (L) 94 (L) CO2 22 - 30 mmol/L 27 25 Anion Gap 9 - 18 mmol/L 13 13 ALT 7 - 38 U/L 14 16 eGFR- >60 eGFR-All Other Races . 59 eGFR >=60 mL/min/1.73m 66 WBC 3.70 - 11.00 k/uL 4.92 RBC 3.90 - 5.20 m/uL 5.20 Hemoglobin 11.5 - 15.5 g/dL 15.2 Hematocrit 36.0 - 46.0 % 45.0 MCV 80.0 - 100.0 fL 86.5 MCH 26.0 - 34.0 pg 29.2 MCHC 30.5 - 36.0 g/dL 33.8 RDW-CV 11.5 - 15.0 % 13.1 Platelet Count 150 - 400 k/uL 185 MPV 9.0 - 12.7 fL 10.5 Absolute nRBC <0.01 k/uL <0.01 Cholesterol, Total <200 mg/dL 186 176 Triglyceride <150 mg/dL 247 (H) 207 (H) HDL Cholesterol >39 mg/dL 59 58 LDL Cholesterol <100 mg/dL 78 77 Non HDL Cholesterol <130 mg/dL 127 118 Fasting Time hrs 12 12 VLDL Cholesterol <30 mg/dL 49 (H) 41 (H) TC:HDL Ratio <5.10 3.15 3.03 LDL:HDL Ratio <2.54 1.32 1.33 Hemoglobin A1C 4.3 - 5.6 % 5.8 (H) 5.8 (H) Estimated Average Glucose mg/dL 120 120 Vitamin D 25 Hydroxy 31.0 - 80.0 ng/mL 76.3 Assessment and Plan ASSESSMENT/PLAN: 1. Essential hypertension - ICD9: 401.9, ICD10: I10 (primary diagnosis) - fair control - Continue current medication(s) - Recommended regular aerobic exercise. - Mild BP elevation may be due to UTI. Adjust meds as needed - Goal of BP <130/80 2. IFG (impaired fasting glucose) - ICD9: 790.21, ICD10: R73.01 Still IFG, not DM. Continue present management. 3. Mixed hyperlipidemia - ICD9: 272.2, ICD10: E78.2 - good control - Continue current medication. - Encouraged following a low carbohydrate, healthy oil intake diet. 4. Vitamin D deficiency - ICD9: 268.9, ICD10: E55.9 Level fine. Continue present management. 5. Recurrent UTI - ICD9: 599.0, ICD10: N39.0 Being treated with Cipro now. Management through UroGY[facility] - Patient education for prevention given Continue management by Uro[facility] 6. Irritable bowel syndrome with both constipation and diarrhea - ICD9: 564.1, ICD10: K58.2 Discussed management. Further evaluation and treatment as indicated. 7. Acute UTI - ICD9: 599.0, ICD10: N39.0 See above. Preston Haney MD documented in this encounter [facility] 11-28-2021 Miscellaneous Notes I have called in cipro for +UTI. Patient with multiple allergies to antibiotics. Has had cipro in the past without issues. Voicemail sent for call back but also sent mychart message. Will call again tomorrow if patient has not seen message. Ailin Naranjo MD documented in this encounter [facility] 10-08-2021 History of Present illness Narrative ASSESSMENT/PLAN: 1. Pseudophakia - ICD9: V43.1, ICD10: Z96.1 (primary diagnosis) CE/IOL with Samuel Curiel in 2019 Lenses look good, in good position She has some residual refractive error - TROPICAMIDE 1 % EYE DROPS - FLUORESCEIN 0.25 %-BENOXINATE 0.4 % EYE DROPS - CORNEAL TOPOGRAPHY ATLAS OU (BOTH EYES) 2. Subjective vision disturbance, bilateral - ICD9: 368.10, ICD10: H53.10 OCT showing no macular pathology to explain her symptoms - OCT MACULA CIRRUS OU (BOTH EYES) - OCT OPTIC NERVE CIRRUS OU (BOTH EYES) 3. Dry eye syndrome of bilateral lacrimal glands - ICD9: 375.15, ICD10: H04.123 ATs PRN 4. Regular astigmatism of both eyes - ICD9: 367.21, ICD10: H52.223 Dispense MRx Consider refractive eval Carlos Noble MD I have confirmed and edited as necessary the relevant ophthalmic history, ROS, and the neuro exam findings as obtained by others. I have seen and examined Concepcion Donaldson. I have discussed the case and the management of this patient's care with the Resident/Fellow, if applicable. I also have reviewed and agree with the assessment and plan as stated above and agree with all of its relevant components. Carlos Noble MD documented in this encounter [facility] 09-08-2021 Note HNO ID: [id number] Author: Blanca Munoz MD Service: ? Author Type: Physician Type: Progress Notes Filed: 09/08/2021 3:32 PM Note Text: Concepcion Donaldson is a 80 year old female who presents today for a vulvar biopsy. Indication: Vulvar lesion. UNIVERSAL PROTOCOL / SAFETY CHECKLIST Procedure to be Performed: vulvar biopsy Sign In: A Moment of CARE was completed. Personnel directly involved with the procedure wore the appropriate PPE (Personal Protective Equipment). No special equipment needed. Patient/Surrogate Stated/Verified: PATIENT VERIFIED(optional for EMERGENT procedures): Patient name, Date of , Relevant allergies and The intended procedure Time Out Communication: Intended patient and procedure match the source documents. Consent documented and matches the intended procedure. No relevant labs, photos, and/or imaging studies were applicable for review. No correct side/site applicable for marking and visibility. No medications required for procedure. No fire risk assessment and interventions applicable. No implant(s) inserted. Sign Out: SIGN OUT (optional for EMERGENT procedures): All specimen containers correctly labeled. All instruments, equipment, possible retained foreign bodies accounted for. Post-procedure follow-up management communicated and Plan of Care Visit completed when applicable. Blanca Munoz MD PROCEDURE NOTE: GROSS LESIONS: Yes, non healing lesion inner surface of left labium minus BIOPSY: Area was cleansed with betadine and anesthetized with 1mL 1% lidocaine. 4mm Lori punch used to biopsy region. HEMOSTASIS: Obtained with silver nitrate Procedure Summary: Patient tolerated procedure well. ASSESSMENT/PLAN: 1. Vulvar lesion - Specimens labeled and sent to Pathology. Will notify patient of results in 1-2 weeks. Post-procedure instructions reviewed and written material given to the patient. 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 Acute cystitis without hematuria - Suspect relapsing UTI. Await urine culture results for treatment. May consider extended course of 7-10 days. - URINE CULTURE - URINALYSIS, WITH MICROSCOPIC 4. Recurrent UTI - Start Hiprex after treatment of acute cystitis as above - Continue vaginal estrogen - Methenamine Hippurate (HIPREX) 1 gram tablet; Take 1 tablet by mouth twice daily with meals. Dispense: 180 tablet; Refill: 3 5. OAB (overactive bladder) - Reassess after treatment of relapsing UTI - Baseline bladder diary reviewed and to be scanned into Epic 6. Full incontinence of feces - Schedule GI appointment as previously discussed 7. Alternating constipation and diarrhea - As above #6 8. Vaginal atrophy - Continue vaginal estrogen Follow up with dc in 3 months Blanca Munoz MD [facility] 08-25-2021 Note HNO ID: [id number] Author: Blanca Munoz MD Service: ? Author Type: Physician Type: Progress Notes Filed: 08/26/2021 4:23 PM Note Text: Female Pelvic Medicine AND Reconstructive Surgery Consult CHIEF COMPLAINT: Concepcion Donaldson is a 80 year old female who presents for consultation requested by Dr. Karishma Brand MD for an opinion regarding subacute on chronic vulvitis. HISTORY OF PRESENT ILLNESS: Pt reports vulvar irritation started in May 2020. Currently using triamcinolone ointment twice daily. If she uses it continuously, the vulva externally is less irritated. It has not helped with irritation of the inside surface of the labia minora. Pt admits she has not been applying triamcinolone to this area. Using Replens internally vaginally. She has not tried vaginal estrogen due to prior abnormal mammogram, but mammogram 07/21/21 confirmed benign findings. Uses Dove, Cere Ve, dye/fragrance free laundry detergent. Has been avoiding topical irritants for years. Pt has had bowel incontinence for years. Saw. Dr. Fields in the past. Did pelvic floor PT/biofeedback in 2009. She has alternating constipation and diarrhea, and states that diarrhea can come on at any time. SHe does not identify any specific triggers. Takes Miralax and Citrucel daily. Last colonoscopy 2017 normal per pt. Urinary incontinence with urgency, +frequency. Leaks when walking into the bathroom. Sometimes leaks with stress maneuvers. Prior urogyn surgery with Dr. Hoff: Total vaginal hysterectomy, uterosacral vaginal vault suspension, anterior repair, Monarc sling, and cystoscopy. Vulvar biopsy 11/17/20: A. Skin, left labia majora, biopsy - Lichenoid interface dermatitis, see comment. ?AF/GKH/lbk 11/19/2020 CONVERTED DIAGNOSIS COMMENT Histologic sections demonstrate compact orthokeratosis overlying attenuated epidermis with a thickened granular layer. Within the dermis, there is a band-like infiltrate of lymphocytes, associated with vacuolar interface change and dyskeratosis. There is background melanoderma, occasional plasma cells, and a rare eosinophil. ?To rule out an infectious process, a PAS/F was performed at the [facility] and compared with appropriate controls. ?The stain is negative for fungal organisms. 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 In the appropriate clinical context, the findings would represent lichen planus or an evolving lichen sclerosis. Clinical correlation remains essential. Medical and Symptom History: VISUAL STYLIST HISTORY: Last Pap: Date:N/A; Last Mammogram: Her last mammogram was 07/21/21. She has a previous history of an abnormal mammogram. LMP: No LMP recorded. Patient has had a hysterectomy.; Menopause post: Menstrual history: NA; Deliveries: History of third or fourth degree laceration: No Weight of largest baby: 6 lbs 10oz Sexual function Sexually active: Not sexually active [id number] Do you: Usually experience pressure in the lower abdomen? No (0) Usually experience heaviness or dullness in the pelvic area? No (0) Usually have a bulge or something falling out that you can see or feel in your vaginal area? No (0) Ever have to push on the vagina or around the rectum to have or complete a bowel movement? No (0) Usually experience a feeling of incomplete bladder emptying? No (0) Ever have to push up on a bulge in the vaginal area with your fingers to start or complete urination? No (0) Feel you need to strain too hard to have a bowel movement? Yes, moderately bothersome (3) Feel you have not completely emptied your bowels at the end of a bowel movement? No (0) Usually lose stool beyond your control if your stool is well formed? Yes, quite a bit bothersome (4) Usually lose stool beyond your control if your stool is loose? Yes, quite a bit bothersome (4) Usually lose gas from the rectum beyond your control? Yes, quite a bit bothersome (4) Usually have pain when you pass your stool? No (0) Experience a strong sense of urgency and have to mina to the bathroom to have a bowel movement? Yes, quite a bit bothersome (4) Does part of your bowel ever pass through the rectum and bulge outside during or after a bowel movement? No (0) Usually experience frequent urination? Yes, moderately bothersome (3) Usually experience urine leakage associated with a feeling of urgency, that is, a strong sensation of needing to go to the bathroom? Yes, somewhat bothersome (2) Usually experience urine leakage related to coughing, sneezing or laughing? Yes, somewhat bothersome (2) Usually experience small amounts of urine leakage (that is, drops)? Yes, somewhat bothersome (2) Usually experience difficulty emptying your bladder? Yes, somewhat bothersome (2) Usually experience pain or discomfort in the lower abdomen or genital region? Yes, somewhat bothersome (2) Do you have pain associated with your prolapse (no (more content not included)... [facility] 07-15-2021 Miscellaneous Notes Protocol recommends seeing provider in 3 days. Care plan reviewed with patient. Patient voices understanding. Advised patient that if symptoms get worse to be evaluated in Urgent Care or ER. Appointment scheduled. Reason for Disposition MILD weakness (i.e., does not interfere with ability to work, go to school, normal activities) (Exception: mild weakness is a chronic symptom) Answer Assessment - Initial Assessment Questions 1. MECHANISM: May have gotten up too fast, and fell over the coffee table. Pt states she has issues with vertigo and meniere. 2. DOMESTIC VIOLENCE AND ELDER ABUSE SCREENING: No one was there, she feels safe in home. 3. ONSET: 06/17/21 4. LOCATION: Hit R leg, L shoulder, and L knee hit the table. 5. INJURY: R knee had a bruise but was not hurting at that time, but now she has an aching pain in the R medial thigh. L knee slightly discolored the next day not painful. L shoulder was painful with movement, felt better after a few days. Lower back twisted when falling burning pain. 6. PAIN: R medial thigh at peak 7-8/10 after Tylenol, support hose, and Biofreeze 2/10. Lower back pain at peak 7-8/10 now 3/10. Pain get worse when performing daily activities or cleaning. 7. SIZE: Bruise to R knee. Slight discoloration to L knee. 8. : Postmenopausal 9. OTHER SYMPTOMS: Pt denies fever. BP 144/80 HR 80. Pt denies dizziness or weakness beyond normal. Pt states that are some days her head feels kind of cloudy, but that has been going on for the past couple of years, she states that she doesn't drive on days like that. 10. CAUSE: Pt has issues with vertigo, meniere, and tinitis. Protocols used: FALLS AND [id number] documented in this encounter [facility] 05-29-2014 History of Past i llness Narrative Problem Noted Date Diagnosed Date Resolved Date Medicare annual wellness visit, subsequent 05/29/2014 02/07/2023 Vision loss 04/21/2010 07/06/2016 Overview: Dr. Clemons Incontinence of feces 09/29/20092010 GASTRITIS ANTRAL( W/O Hemorrhage) 05/27/2008 07/06/2016 Urgency of urination 01/10/2008 016 Urge incontinence 01/10/2008 09/29/2009 Female stress incontinence 01/10/2008 0 09/29/2009 Uterovaginal prolapse, incomplete 06/08/2007 09/29/2009 Postmenopausal atrophic vaginitis 06/08/2007 07/06/2016 documented as of this encounter (statuses as of 05/14/2023) [facility] History of Past illness Narrative* Problem Noted Date Diagnosed Date Resolved Date Medicare annual wellness visit, subsequent 05/29/2014 02/07/2023 Vision loss 04/21/2010 07/06/2016 Overview: Dr. Clemons Incontinence of feces 09/29/20092010 GASTRITIS ANTRAL( W/O Hemorrhage) 05/27/2008 07/06/2016 Urgency of urination 01/10/2008 016 Urge incontinence 01/10/2008 09/29/2009 Female stress incontinence 01/10/2008 0 09/29/2009 Uterovaginal prolapse, incomplete 06/08/2007 09/29/2009 Postmenopausal atrophic vaginitis 06/08/2007 07/06/2016 documented as of this encounter (statuses as of 05/14/2023) [facility] History of Past illness Narrative* Problem Noted Date Diagnosed Date Resolved Date Medicare annual wellness visit, subsequent 05/29/2014 02/07/2023 Vision loss 04/21/2010 07/06/2016 Overview: Dr. Clemons Incontinence of feces 09/29/20092010 GASTRITIS ANTRAL( W/O Hemorrhage) 05/27/2008 07/06/2016 Urgency of urination 01/10/2008 016 Urge incontinence 01/10/2008 09/29/2009 Female stress incontinence 01/10/2008 0 09/29/2009 Uterovaginal prolapse, incomplete 06/08/2007 09/29/2009 Postmenopausal atrophic vaginitis 06/08/2007 07/06/2016 documented as of this encounter (statuses as of 08/20/2023) [facility] History of Past illness Narrative* Problem Noted Date Diagnosed Date Resolved Date Medicare annual wellness visit, subsequent 05/29/2014 02/07/2023 Vision loss 04/21/2010 07/06/2016 Overview: Dr. Clemons Incontinence of feces 09/29/20092010 GASTRITIS ANTRAL( W/O Hemorrhage) 05/27/2008 07/06/2016 Urgency of urination 01/10/2008 016 Urge incontinence 01/10/2008 09/29/2009 Female stress incontinence 01/10/2008 0 09/29/2009 Uterovaginal prolapse, incomplete 06/08/2007 09/29/2009 Postmenopausal atrophic vaginitis 06/08/2007 07/06/2016 documented as of this encounter (statuses as of 08/22/2023) [facility] History of Past illness Narrative* Problem Noted Date Diagnosed Date Resolved Date Medicare annual wellness visit, subsequent 05/29/2014 02/07/2023 Vision loss 04/21/2010 07/06/2016 Overview: Dr. Clemons Incontinence of feces 09/29/20092010 GASTRITIS ANTRAL( W/O Hemorrhage) 05/27/2008 07/06/2016 Urgency of urination 01/10/2008 016 Urge incontinence 01/10/2008 09/29/2009 Female stress incontinence 01/10/2008 0 09/29/2009 Uterovaginal prolapse, incomplete 06/08/2007 09/29/2009 Postmenopausal atrophic vaginitis 06/08/2007 07/06/2016 documented as of this encounter (statuses as of 08/24/2023) [facility] History of Past illness Narrative* Problem Noted Date Resolved Date Vision loss 04/21/2010 07/06/2016 Overview: Dr. Clemons Incontinence of feces 09/29/2009 03/23/2011 GASTRITIS ANTRAL( W/O Hemorrhage) 05/27/2008 07/06/2016 Urgency of urination 01/10/2008 07/06/2016 Urge incontinence 01/10/2008 09/29/2009 Female stress incontinence 01/10/200809/29 Uterovaginal prolapse, incomplete 06/08/2007 09/29/2009 Postmenopausal atrophic vaginitis 06/08/2007 07/06/2016 documented as of this encounter (statuses as of 10/08/2021) [facility] History of Past illness Narrative* Problem Noted Date Resolved Date Vision loss 04/21/2010 07/06/2016 Overview: Dr. Clemons Incontinence of feces 09/29/2009 03/23/2011 GASTRITIS ANTRAL( W/O Hemorrhage) 05/27/2008 07/06/2016 Urgency of urination 01/10/2008 07/06/2016 Urge incontinence 01/10/2008 09/29/2009 Female stress incontinence 01/10/200809/29 Uterovaginal prolapse, incomplete 06/08/2007 09/29/2009 Postmenopausal atrophic vaginitis 06/08/2007 07/06/2016 documented as of this encounter (statuses as of 11/28/2021) [facility]2010 History of Past illness Narrative* Problem Noted Date Resolved Date Vision loss 04/21/2010 07/06/2016 Overview: Dr. Clemons Incontinence of feces 09/29/2009 03/23/2011 GASTRITIS ANTRAL( W/O Hemorrhage) 05/27/2008 07/06/2016 Urgency of urination 01/10/2008 07/06/2016 Urge incontinence 01/10/2008 09/29/2009 Female stress incontinence 01/10/200809/29 Uterovaginal prolapse, incomplete 06/08/2007 09/29/2009 Postmenopausal atrophic vaginitis 06/08/2007 07/06/2016 documented as of this encounter (statuses as of 12/01/2021) [facility] History of Past illness Narrative* Problem Noted Date Resolved Date Vision loss 04/21/2010 07/06/2016 Overview: Dr. Clemons Incontinence of feces 09/29/2009 03/23/2011 GASTRITIS ANTRAL( W/O Hemorrhage) 05/27/2008 07/06/2016 Urgency of urination 01/10/2008 07/06/2016 Urge incontinence 01/10/2008 09/29/2009 Female stress incontinence 01/10/200809/29 Uterovaginal prolapse, incomplete 06/08/2007 09/29/2009 Postmenopausal atrophic vaginitis 06/08/2007 07/06/2016 documented as of this encounter (statuses as of 12/02/2021) [facility] History of Past illness Narrative* Problem Noted Date Resolved Date Vision loss 04/21/2010 07/06/2016 Overview: Dr. Clemons Incontinence of feces 09/29/2009 03/23/2011 GASTRITIS ANTRAL( W/O Hemorrhage) 05/27/2008 07/06/2016 Urgency of urination 01/10/2008 07/06/2016 Urge incontinence 01/10/2008 09/29/2009 Female stress incontinence 01/10/200809/29 Uterovaginal prolapse, incomplete 06/08/2007 09/29/2009 Postmenopausal atrophic vaginitis 06/08/2007 07/06/2016 documented as of this encounter (statuses as of 12/18/2021) [facility] History of Past illness Narrative* Problem Noted Date Resolved Date Vision loss 04/21/2010 07/06/2016 Overview: Dr. Clemons Incontinence of feces 09/29/2009 03/23/2011 GASTRITIS ANTRAL( W/O Hemorrhage) 05/27/2008 07/06/2016 Urgency of urination 01/10/2008 07/06/2016 Urge incontinence 01/10/2008 09/29/2009 Female stress incontinence 01/10/200809/29 Uterovaginal prolapse, incomplete 06/08/2007 09/29/2009 Postmenopausal atrophic vaginitis 06/08/2007 07/06/2016 documented as of this encounter (statuses as of 01/09/2022) [facility] History of Past illness Narrative* Problem Noted Date Resolved Date Vision loss 04/21/2010 07/06/2016 Overview: Dr. Clemons Incontinence of feces 09/29/2009 03/23/2011 GASTRITIS ANTRAL( W/O Hemorrhage) 05/27/2008 07/06/2016 Urgency of urination 01/10/2008 07/06/2016 Urge incontinence 01/10/2008 09/29/2009 Female stress incontinence 01/10/200809/29 Uterovaginal prolapse, incomplete 06/08/2007 09/29/2009 Postmenopausal atrophic vaginitis 06/08/2007 07/06/2016 documented as of this encounter (statuses as of 01/21/2022) [facility] History of Past illness Narrative* Problem Noted Date Resolved Date Vision loss 04/21/2010 07/06/2016 Overview: Dr. Clemons Incontinence of feces 09/29/2009 03/23/2011 GASTRITIS ANTRAL( W/O Hemorrhage) 05/27/2008 07/06/2016 Urgency of urination 01/10/2008 07/06/2016 Urge incontinence 01/10/2008 09/29/2009 Female stress incontinence 01/10/200809/29 Uterovaginal prolapse, incomplete 06/08/2007 09/29/2009 Postmenopausal atrophic vaginitis 06/08/2007 07/06/2016 documented as of this encounter (statuses as of 01/24/2022) [facility] History of Past illness Narrative* Problem Noted Date Resolved Date Vision loss 04/21/2010 07/06/2016 Overview: Dr. Clemons Incontinence of feces 09/29/2009 03/23/2011 GASTRITIS ANTRAL( W/O Hemorrhage) 05/27/2008 07/06/2016 Urgency of urination 01/10/2008 07/06/2016 Urge incontinence 01/10/2008 09/29/2009 Female stress incontinence 01/10/200809/29 Uterovaginal prolapse, incomplete 06/08/2007 09/29/2009 Postmenopausal atrophic vaginitis 06/08/2007 07/06/2016 documented as of this encounter (statuses as of 02/16/2022) [facility] History of Past illness Narrative* Problem Noted Date Resolved Date Vision loss 04/21/2010 07/06/2016 Overview: Dr. Clemons Incontinence of feces 09/29/2009 03/23/2011 GASTRITIS ANTRAL( W/O Hemorrhage) 05/27/2008 07/06/2016 Urgency of urination 01/10/2008 07/06/2016 Urge incontinence 01/10/2008 09/29/2009 Female stress incontinence 01/10/200809/29 Uterovaginal prolapse, incomplete 06/08/2007 09/29/2009 Postmenopausal atrophic vaginitis 06/08/2007 07/06/2016 documented as of this encounter (statuses as of 06/08/2022) [facility] History of Past illness Narrative* Problem Noted Date Resolved Date Vision loss 04/21/2010 07/06/2016 Overview: Dr. Clemons Incontinence of feces 09/29/2009 03/23/2011 GASTRITIS ANTRAL( W/O Hemorrhage) 05/27/2008 07/06/2016 Urgency of urination 01/10/2008 07/06/2016 Urge incontinence 01/10/2008 09/29/2009 Female stress incontinence 01/10/200809/29 Uterovaginal prolapse, incomplete 06/08/2007 09/29/2009 Postmenopausal atrophic vaginitis 06/08/2007 07/06/2016 documented as of this encounter (statuses as of 06/11/2022) [facility] History of Past illness Narrative* Problem Noted Date Resolved Date Vision loss 04/21/2010 07/06/2016 Overview: Dr. Clemons Incontinence of feces 09/29/2009 03/23/2011 GASTRITIS ANTRAL( W/O Hemorrhage) 05/27/2008 07/06/2016 Urgency of urination 01/10/2008 07/06/2016 Urge incontinence 01/10/2008 09/29/2009 Female stress incontinence 01/10/200809/29 Uterovaginal prolapse, incomplete 06/08/2007 09/29/2009 Postmenopausal atrophic vaginitis 06/08/2007 07/06/2016 documented as of this encounter (statuses as of 06/18/2022) [facility] History of Past illness Narrative* Problem Noted Date Resolved Date Vision loss 04/21/2010 07/06/2016 Overview: Dr. Clemons Incontinence of feces 09/29/2009 03/23/2011 GASTRITIS ANTRAL( W/O Hemorrhage) 05/27/2008 07/06/2016 Urgency of urination 01/10/2008 07/06/2016 Urge incontinence 01/10/2008 09/29/2009 Female stress incontinence 01/10/200809/29 Uterovaginal prolapse, incomplete 06/08/2007 09/29/2009 Postmenopausal atrophic vaginitis 06/08/2007 07/06/2016 documented as of this encounter (statuses as of 07/04/2022) [facility] History of Past illness Narrative* Problem Noted Date Resolved Date Vision loss 04/21/2010 07/06/2016 Overview: Dr. Clemons Incontinence of feces 09/29/2009 03/23/2011 GASTRITIS ANTRAL( W/O Hemorrhage) 05/27/2008 07/06/2016 Urgency of urination 01/10/2008 07/06/2016 Urge incontinence 01/10/2008 09/29/2009 Female stress incontinence 01/10/200809/29 Uterovaginal prolapse, incomplete 06/08/2007 09/29/2009 Postmenopausal atrophic vaginitis 06/08/2007 07/06/2016 documented as of this encounter (statuses as of 07/15/2022) [facility] History of Past illness Narrative* Problem Noted Date Resolved Date Vision loss 04/21/2010 07/06/2016 Overview: Dr. Clemons Incontinence of feces 09/29/2009 03/23/2011 GASTRITIS ANTRAL( W/O Hemorrhage) 05/27/2008 07/06/2016 Urgency of urination 01/10/2008 07/06/2016 Urge incontinence 01/10/2008 09/29/2009 Female stress incontinence 01/10/200809/29 Uterovaginal prolapse, incomplete 06/08/2007 09/29/2009 Postmenopausal atrophic vaginitis 06/08/2007 07/06/2016 documented as of this encounter (statuses as of 07/15/2022) [facility] History of Past illness Narrative* Problem Noted Date Resolved Date Vision loss 04/21/2010 07/06/2016 Overview: Dr. Clemons Incontinence of feces 09/29/2009 03/23/2011 GASTRITIS ANTRAL( W/O Hemorrhage) 05/27/2008 07/06/2016 Urgency of urination 01/10/2008 07/06/2016 Urge incontinence 01/10/2008 09/29/2009 Female stress incontinence 01/10/200809/29 Uterovaginal prolapse, incomplete 06/08/2007 09/29/2009 Postmenopausal atrophic vaginitis 06/08/2007 07/06/2016 documented as of this encounter (statuses as of 08/17/2022) [facility] History of Past illness Narrative* Problem Noted Date Resolved Date Vision loss 04/21/2010 07/06/2016 Overview: Dr. Clemons Incontinence of feces 09/29/2009 03/23/2011 GASTRITIS ANTRAL( W/O Hemorrhage) 05/27/2008 07/06/2016 Urgency of urination 01/10/2008 07/06/2016 Urge incontinence 01/10/2008 09/29/2009 Female stress incontinence 01/10/200809/29 Uterovaginal prolapse, incomplete 06/08/2007 09/29/2009 Postmenopausal atrophic vaginitis 06/08/2007 07/06/2016 documented as of this encounter (statuses as of 09/14/2022) [facility] History of Past illness Narrative* Problem Noted Date Resolved Date Vision loss 04/21/2010 07/06/2016 Overview: Dr. Clemons Incontinence of feces 09/29/2009 03/23/2011 GASTRITIS ANTRAL( W/O Hemorrhage) 05/27/2008 07/06/2016 Urgency of urination 01/10/2008 07/06/2016 Urge incontinence 01/10/2008 09/29/2009 Female stress incontinence 01/10/200809/29 Uterovaginal prolapse, incomplete 06/08/2007 09/29/2009 Postmenopausal atrophic vaginitis 06/08/2007 07/06/2016 documented as of this encounter (statuses as of 12/23/2022) [facility] note* Diagnosis Pseudophakia- Primary Lens replaced by other means Subjective vision disturbance, bilateral Subjective visual disturbance, unspecified Dry eye syndrome of bilateral lacrimal glands Tear film insufficiency, unspecified Regular astigmatism of both eyes Regular astigmatism documented in this encounter [facility] note* Diagnosis Essential hypertension- Primary Unspecified essential hypertension IFG (impaired fasting glucose) Impaired fasting glucose Mixed hyperlipidemia Vitamin D deficiency Unspecified vitamin D deficiency Recurrent UTI Urinary tract infection, site not specified Irritable bowel syndrome with both constipation and diarrhea Acute UTI Urinary tract infection, site not specified [facility] Diagnosis Recurrent UTI- Primary Urinary tract infection, site not specified documented in this encounter [facility] note* Diagnosis Onset Date Resolution Status Constipation acute Fecal smearing acute [facility] Work Phone: evaluation note* Diagnosis Recurrent UTI Urinary tract infection, site not specified [facility] Diagnosis UTI symptoms- Primary Other symptoms involving urinary system [facility]* Diagnosis Dysuria- Primary [facility] Diagnosis Acute cystitis without hematuria- Primary Acute cystitis documented in this encounter [facility] note* Diagnosis Onset Date Resolution Status Constipation acute Fecal smearing acute Constipation acute Fecal smearing acute [facility] Work Phone: Evaluation note* Diagnosis Primary hypertension- Primary Unspecified essential hypertension Need for shingles vaccine Need for prophylactic vaccination and inoculation against other viral diseases Encounter for immunization Need for other specified prophylactic vaccination against single bacterial disease Mixed hyperlipidemia Irritable bowel syndrome with both constipation and diarrhea IFG (impaired fasting glucose) Impaired fasting glucose [facility] Diagnosis Microcalcifications of the breast- Primary Mammographic microcalcification [facility]* Diagnosis Onset Date Resolution Status Constipation chronic Constipation chronic [facility] Work Phone: evaluation note* Diagnosis Microcalcifications of the breast- Primary Mammographic microcalcification documented in this encounter [facility] note* Diagnosis Microcalcifications of the breast- Primary Mammographic microcalcification documented in this encounter [facility] note* Diagnosis Microcalcifications of the breast Mammographic microcalcification [facility] Encounter for screening mammogram for malignant neoplasm of breast Other screening mammogram [facility] Diagnosis Breast cancer screening by mammogram [facility] Primary hypertension- Primary Unspecified essential hypertension Mixed hyperlipidemia IFG (impaired fasting glucose) Impaired fasting glucose Chronic constipation Unspecified constipation Vitamin D deficiency Unspecified vitamin D deficiency Redness and swelling of lower leg Encounter for immunization Need for other specified prophylactic vaccination against single bacterial disease Need for shingles vaccine Need for prophylactic vaccination and inoculation against other viral diseases Breast cancer screening by mammogram [facility] Diagnosis Polyarthritis- Primary Unspecified polyarthropathy or polyarthritis, site unspecified [facility] Primary hypertension- Primary Unspecified essential hypertension Mixed hyperlipidemia Prediabetes Other abnormal glucose Varicose veins of right lower extremity with pain Varicose veins of lower extremities with other complications Chronic constipation Unspecified constipation Irritable bowel syndrome with both constipation and diarrhea Encounter for therapeutic drug level monitoring Encounter for therapeutic drug monitoring Vitamin D deficiency Unspecified vitamin D deficiency [facility] Diagnosis Medicare annual wellness visit, subsequent- Primary Routine general medical examination at a health care facility Primary hypertension Unspecified essential hypertension Primary osteoarthritis involving multiple joints [facility] Primary osteoarthritis involving multiple joints- Primary [facility] Diagnosis Primary hypertension- Primary Unspecified essential hypertension Primary osteoarthritis involving multiple joints Irritable bowel syndrome with both constipation and diarrhea Mixed hyperlipidemia IFG (impaired fasting glucose) Impaired fasting glucose Hyponatremia Hyposmolality and/or hyponatremia Hypokalemia Hypopotassemia Breast cancer screening by mammogram Vitamin D deficiency Unspecified vitamin D deficiency Cervicalgia Encounter for immunization Need for other specified prophylactic vaccination against single bacterial disease [facility] Diagnosis Breast cancer screening by mammogram [facility] Diagnosis Bilateral hand pain- Primary Pain in limb Primary osteoarthritis involving multiple joints Raynaud's disease without gangrene History of gastric ulcer Personal history of other diseases of digestive system [facility] Diagnosis Bilateral hand pain Pain in limb Primary osteoarthritis involving multiple joints Raynaud's disease without gangrene Shortness of breath Neuropathy Mononeuritis of unspecified site History of gastric ulcer Personal history of other diseases of digestive system [facility] Diagnosis Bilateral hand pain- Primary Pain in limb [facility] Diagnosis Pain of right hand- Primary Pain in limb [facility] Diagnosis Primary hypertension- Primary Unspecified essential hypertension WALTERS (dyspnea on exertion) Other dyspnea and respiratory abnormality Asymmetric hypertrophy of ventricular septum Heart murmur Undiagnosed cardiac murmurs Elevated uric acid in blood Other abnormal blood chemistry [facility] Diagnosis Pain of right hand- Primary Pain in limb Long-term use of Plaquenil Encounter for long-term (current) use of other medications Swelling of right middle finger [facility] Diagnosis High risk medication use- Primary Encounter for long-term (current) use of other medications Dry eye syndrome of bilateral lacrimal glands Tear film insufficiency, unspecified Pseudophakia of both eyes Lens replaced by other means Posterior vitreous detachment of both eyes Vitreous degeneration Prediabetes Other abnormal glucose [facility] Diagnosis Arthritis of finger- Primary Pain of right hand Pain in limb Swelling of right middle finger 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 documented in this encounter [facility] for referral (narrative)* Diagnostic Procedure Only (Routine) - Closed Specialty Diagnoses / Procedures Referred By Aleshaac shira Referred To Contact CT IMAGING Diagnoses Recurrent UTI Procedures CT FLANK WO IVCON CT ABD & PELVIS W/O CONTRAST Blanca Munoz MD [address] [place] [address] Ct Imaging Referral ID Status Reason Start Date Expiration Date Visits Re quested Visits Authorized [id number] Closed 12/29/2021 01/28/2022 1 1 [facility] for referral (narrative)* Diagnostic Procedure Only (Routine) - Pending Review Specialty Diagnoses / Procedures Referred By Contac t Referred To Contact BR IMAGING Diagnoses Microcalcifications of the breast Procedures CESAR DIAGNOSTIC LEFT DIAGNOSTIC MAMMOGRAPHY COMPUTER-AIDED DETCJ [facility] Miah Mart MD [address] [place] [address] Br Imaging [address] [place] [address] Referral ID Status Reason Start Date Expiration Date Visits Requested Visits Authorized [id number] Pending Review Auto-Generat ed Referral 12/23/2022 01/22/2024 1 1 [facility] for referral (narrative)* Diagnostic Procedure Only (Routine) - Closed Specialty Diagnoses / Procedures Referred By [facility] Referred To Contact [facility] Diagnoses Microcalcifications of the breast Procedures CESAR DIAGNOSTIC LEFT DIAGNOSTIC MAMMOGRAPHY COMPUTER-AIDED DETCJ UNI Miah Mart MD [address] [place] [address] Br Imaging [address] [place] [address] Referral ID Status Reason Start Date Expiration Date V isits Requested Visits Authorized [id number] Closed Auto-Generate d Referral 12/23/2022 01/22/2024 1 1 T [facility] for referral (narrative)* Diagnostic Procedure Only (Routine) - Closed Specialty Diagnoses / Procedures Referred By Maritza silva Referred To Contact BR IMAGING Diagnoses Encounter for screening mammogram for malignant neoplasm of breast Procedures CESAR SCREENING W RIVAS SCREENING BREAST DGTL RIVAS UNI/BILAT ADD ON SCREENING MAMMOGRAPHY BI 2-VIEW BREAST INC CAD Karishma Talbot MD [address] [place] [address] Br Imaging [address] [place] [address] Referral ID Status Reason Start Date Expiration Date V isits Requested Visits Authorized [id number] Closed Auto-Generate d Referral 12/29/2021 07/10/2022 [address] [facility] for referral (narrative)* Diagnostic Procedure Only (Routine) - Closed Specialty Diagnoses / Procedures Referred By Maritza t Referred To Contact BR IMAG[facility] Diagnoses Breast cancer screening by mammogram Procedures CESAR SCREENING W RIVAS SCREENING DIGITAL BREAST TOMOSYNTHESIS BI SCREENING MAMMOGRAPHY BI 2-VIEW BREAST INC CAD Preston Haney MD [address] [place] [address] Br Imaging [address] [place] [address] Referral ID Status Reason Start Date Expiration Date V isits Requested Visits Authorized [id number] Closed Auto-Generate d Referral 07/20/2023 08/18/2024 1 1 [facility] for visit Narrative* Diagnostic Procedure Only (Routine) - Closed Specialty Diagnoses / Procedures Referred By Maritza silva Referred To Contact CT IMAGING Diagnoses Recurrent UTI Procedures CT FLANK WO IVCON CT ABD & PELVIS W/O CONTRAST Blanca Munoz MD [address] [facility] [address] [place] [address] Ct Imaging Referral ID Status Reason Start Date Expiration Date Visits Re quested Visits Authorized [id number] Closed 12/29/2021 01/28/2022 1 1 [facility] for visit Narrative* Diagnostic Procedure Only (Routine) - Closed Specialty Diagnoses / Procedures Referred By Maritza silva Referred To Contact BR IMAGING Diagnoses Microcalcifications of the breast Procedures CESAR DIAGNOSTIC LEFT DIAGNOSTIC MAMMOGRAPHY COMPUTER-AIDED DETCJ UNI Miah Mart MD [address] [place] [address] Br Imaging [address] [place] [address] Referral ID Status Reason Start Date Expiration Date V isits Requested Visits Authorized [id number] Closed Auto-Generate d Referral 12/23/2022 01/22/2024 1 1 [facility] for visit Narrative* Diagnostic Procedure Only (Routine) - Closed Specialty Diagnoses / Procedures Referred By Maritza silva Referred To Contact BR IMAGING Diagnoses Encounter for screening mammogram for malignant neoplasm of breast Procedures CESAR SCREENING W RIVAS SCREENING BREAST DGTL RIVAS UNI/BILAT ADD ON SCREENING MAMMOGRAPHY BI 2-VIEW BREAST INC CAD Quintanaidre, MD [address] [place] [address] Br Imaging [address] [place] [address] Referral ID Status Reason Start Date Expiration Date V isits Requested Visits Authorized [id number] Closed Auto-Generate d Referral 12/29/2021 07/10/2022 1 1 [facility] for visit Narrative* Diagnostic Procedure Only (Routine) - Closed Specialty Diagnoses / Procedures Referred By Contac t Referred To Contact [facility] IM[facility] Diagnoses Breast cancer screening by mammogram Procedures CESAR SCREENING W RIVAS SCREENING DIGITAL BREAST TOMOSYNTHESIS BI SCREENING MAMMOGRAPHY BI 2-VIEW BREAST INC Preston Bustillos MD [address] [place] [address] Br Imaging [address] [place] [address] Referral ID Status Reason Start Date Expiration Date V isits Requested Visits Authorized [id number] Closed Auto-Generate d Referral 07/20/2023 08/18/2024 1 1 [facility] for visit Narrative* Diagnostic Procedure Only (Routine) - Closed Specialty Diagnoses / Procedures Referred By Maritza t Referred To Contact [facility] Diagnoses Breast cancer screening by mammogram Procedures CESAR SCREENING W RIVAS SCREENING DIGITAL BREAST TOMOSYNTHESIS BI SCREENING MAMMOGRAPHY BI 2-VIEW BREAST INC Preston Bustillos MD [address] [place] [address] Phone: tel: fax: [facility] [address] [place] [address] Referral ID Status Reason Start Date Expiration Date V isits Requested Visits Authorized [id number] Closed Auto-Generate d Referral 07/20/2024 08/19/2025 1 1 [facility] for visit Narrative* Diagnostic Procedure Only (Routine) - Closed Specialty Diagnoses / Procedures Referred By Maritza t Referred To Contact XR IMAGING Diagnoses Primary osteoarthritis involving multiple joints Raynaud's disease without gangrene Shortness of breath Neuropathy History of gastric ulcer Bilateral hand pain Procedures XR FOOT GENERAL 3V AP/LAT/OBL BILATERAL RADEX FOOT COMPLETE MINIMUM 3 VIEWS Lexis Roca, TRAC[facility] [address] [place] [address] Phone: tel: fax: [place] [phone] Referral ID Status Reason Start Date Expiration Date V isits Requested Visits Authorized [id number] Closed Auto-Generate d Referral 09/20/2024 10/20/2025 1 1 [facility] Medications Administered Section Active Administered Medications - up to 3 most recent administrations Medication Order MAR Action Action Date Dose Rate Site fluorescein-benoxinate 0.25-0.4 % 1 Drop (FLURESS) 1 Drop, BOTH EYES, DIRECTED, Starting on Annamaria 10/08/21 at 1000, Until Annamaria 10/08/21 at 2159, Administer for applanation tonometry. In the event of a Fluress shortage, administer [place]-Fluor 1 drop into both eyes as directed for applanation tonometry Given 10/08/2021 10:23 AM EDT 1 Drop tropicamide 1 % 1 Drop (MYDRIACYL) 1 Drop, BOTH EYES, DIRECTED, Starting on Annamaria 10/08/21 at 1000, Until Annamaria 10/08/21 at 2159, Administer for dilation Given 10/08/2021 10:23 AM EDT 1 Drop Advance Directives No Advanced Directives Records FoundDocuments on File Type Date Recorded Patient Conference Services Coordinator Expl anation Advance Directive(s) 08/18/2016 1:02 PM Advance Directive(s) 08/16/2016 1:39 PM Advance Directive(s) 04/18/2009 5:30 AM Advance Directive(s) 08/25/2006 12:00 AM Documents on File Type Date Recorded Patient Conference Services Coordinator Expl anation Advance Directive(s) 08/18/2016 1:02 PM Advance Directive(s) 08/16/2016 1:39 PM Advance Directive(s) 04/18/2009 5:30 AM Advance Directive(s) 08/25/2006 12:00 AM Documents on File Type Date Recorded Patient Conference Services Coordinator Expl anation Advance Directive(s) 04/18/2009 5:30 AM Advance Directive(s) 08/25/2006 Documents on File Type Date Recorded Patient Conference Services Coordinator Expl anation Advance Directive(s) 04/18/2009 5:30 AM Advance Directive(s) 08/25/2006 Chief Complaint and Reason for Visit Chief Complaint CONSTIPATION AND JOSE RRHEA SITZ Reason for Visit Constipation Fecal smearing Chief Complaint CONSTIPATION AND JOSE RRHEA SITZ 3 MO FU Reason for Visit Constipation Fecal smearing Constipation Fecal smearing Chief Complaint 3 MO FU 3 MO FU LT BREAST ABN MAMM Reason for Visit Constipation Constipation Family History No Family History Records Found Relationship Condition Age at Onset Recorded Date/T adrianna mother Hypertension Unknown brother Hypertension Unknown father Cardiac disease Unknown Summary Purpose Reason for Referral Specialty Diagnoses / Procedures Referred By Contac t Referred To Contact Rheumatology Diagnoses Polyarthritis Procedures CONSULT TO RHEUM/IMMUN DISEASE Preston Haney MD [address] [place] [address] Jessica Madrid [address] [place] [address] Referral ID Status Reason Start Date Expiration Date Visits Requested Visits Authorized [id number] Ref Not Required PCP Requested Referral 12/23/2023 12/19/2024 1 1 Specialty Diagnoses / Procedures Referred By Contac t Referred To Contact Rheumatology Diagnoses Primary osteoarthritis involving multiple joints Procedures CONSULT TO RHEUM/IMMUN DISEASE OFFICE/OUTPATIENT [facility] 60 MINUTES Elisabeth Hoff APRN.HOLISTIC NUTRITIONIST [address] [place] [address] Referral ID Status Reason Start Date Expiration Date Visits Requested Visits Authorized [id number] Authorized PCP Requested Referral 07/20/2024 07/20/2025 1 1 Additional Source Comments Source Comments (unrecognize d section and content) In the event this informatio n is protected by the Federal Confidentiality of Alcohol and Drug Abuse Patient Records regulations: The Federal rules restrict any use of the information to criminally investigate or prosecute any alcohol or drug abuse patient.[facility] the event this information is protected by the Federal Confidentiality of Alcohol and Drug Abuse Patient Records regulations: The Federal rules restrict any use of the information to criminally investigate or prosecute any alcohol or drug abuse patient.[facility] CenterIn the event this information is protected by the Federal Confidentiality of Alcohol and Drug Abuse Patient Records regulations: The Federal rules restrict any use of the information to criminally investigate or prosecute any alcohol or drug abuse patient.[facility] CenterIn the event this information is protected by the Federal Confidentiality of Alcohol and Drug Abuse Patient Records regulations: The Federal rules restrict any use of the information to criminally investigate or prosecute any alcohol or drug abuse patient.[facility] CenterIn the event this information is protected by the Federal Confidentiality of Alcohol and Drug Abuse Patient Records regulations: The Federal rules restrict any use of the information to criminally investigate or prosecute any alcohol or drug abuse patient.[facility] CenterIn the event this information is protected by the Federal Confidentiality of Alcohol and Drug Abuse Patient Records regulations: The Federal rules restrict any use of the information to criminally investigate or prosecute any alcohol or drug abuse patient.[facility] CenterIn the event this information is protected by the Federal Confidentiality of Alcohol and Drug Abuse Patient Records regulations: The Federal rules restrict any use of the information to criminally investigate or prosecute any alcohol or drug abuse patient.[facility] CenterIn the event this information is protected by the Federal Confidentiality of Alcohol and Drug Abuse Patient Records regulations: The Federal rules restrict any use of the information to criminally investigate or prosecute any alcohol or drug abuse patient.[facility] CenterIn the event this information is protected by the Federal Confidentiality of Alcohol and Drug Abuse Patient Records regulations: The Federal rules restrict any use of the information to criminally investigate or prosecute any alcohol or drug abuse patient.[facility] CenterIn the event this information is protected by the Federal Confidentiality of Alcohol and Drug Abuse Patient Records regulations: The Federal rules restrict any use of the information to criminally investigate or prosecute any alcohol or drug abuse patient.[facility] CenterIn the event this information is protected by the Federal Confidentiality of Alcohol and Drug Abuse Patient Records regulations: The Federal rules restrict any use of the information to criminally investigate or prosecute any alcohol or drug abuse patient.[facility] CenterIn the event this information is protected by the Federal Confidentiality of Alcohol and Drug Abuse Patient Records regulations: The Federal rules restrict any use of the information to criminally investigate or prosecute any alcohol or drug abuse patient.[facility] CenterIn the event this information is protected by the Federal Confidentiality of Alcohol and Drug Abuse Patient Records regulations: The Federal rules restrict any use of the information to criminally investigate or prosecute any alcohol or drug abuse patient.[facility] CenterIn the event this information is protected by the Federal Confidentiality of Alcohol and Drug Abuse Patient Records regulations: The Federal rules restrict any use of the information to criminally investigate or prosecute any alcohol or drug abuse patient.[facility] CenterIn the event this information is protected by the Federal Confidentiality of Alcohol and Drug Abuse Patient Records regulations: The Federal rules restrict any use of the information to criminally investigate or prosecute any alcohol or drug abuse patient.[facility] CenterIn the event this information is protected by the Federal Confidentiality of Alcohol and Drug Abuse Patient Records regulations: The Federal rules restrict any use of the information to criminally investigate or prosecute any alcohol or drug abuse patient.[facility] CenterIn the event this information is protected by the Federal Confidentiality of Alcohol and Drug Abuse Patient Records regulations: The Federal rules restrict any use of the information to criminally investigate or prosecute any alcohol or drug abuse patient.[facility] CenterIn the event this information is protected by the Federal Confidentiality of Alcohol and Drug Abuse Patient Records regulations: The Federal rules restrict any use of the information to criminally investigate or prosecute any alcohol or drug abuse patient.[facility] CenterIn the event this information is protected by the Federal Confidentiality of Alcohol and Drug Abuse Patient Records regulations: The Federal rules restrict any use of the information to criminally investigate or prosecute any alcohol or drug abuse patient.[facility] CenterIn the event this information is protected by the Federal Confidentiality of Alcohol and Drug Abuse Patient Records regulations: The Federal rules restrict any use of the information to criminally investigate or prosecute any alcohol or drug abuse patient.[facility] CenterIn the event this information is protected by the Federal Confidentiality of Alcohol and Drug Abuse Patient Records regulations: The Federal rules restrict any use of the information to criminally investigate or prosecute any alcohol or drug abuse patient.[facility] CenterIn the event this information is protected by the Federal Confidentiality of Alcohol and Drug Abuse Patient Records regulations: The Federal rules restrict any use of the information to criminally investigate or prosecute any alcohol or drug abuse patient.[facility] CenterIn the event this information is protected by the Federal Confidentiality of Alcohol and Drug Abuse Patient Records regulations: The Federal rules restrict any use of the information to criminally investigate or prosecute any alcohol or drug abuse patient.[facility] CenterIn the event this information is protected by the Federal Confidentiality of Alcohol and Drug Abuse Patient Records regulations: The Federal rules restrict any use of the information to criminally investigate or prosecute any alcohol or drug abuse patient.[facility] CenterIn the event this information is protected by the Federal Confidentiality of Alcohol and Drug Abuse Patient Records regulations: The Federal rules restrict any use of the information to criminally investigate or prosecute any alcohol or drug abuse patient.[facility] CenterIn the event this information is protected by the Federal Confidentiality of Alcohol and Drug Abuse Patient Records regulations: The Federal rules restrict any use of the information to criminally investigate or prosecute any alcohol or drug abuse patient.[facility] CenterIn the event this information is protected by the Federal Confidentiality of Alcohol and Drug Abuse Patient Records regulations: The Federal rules restrict any use of the information to criminally investigate or prosecute any alcohol or drug abuse patient.[facility] CenterIn the event this information is protected by the Federal Confidentiality of Alcohol and Drug Abuse Patient Records regulations: The Federal rules restrict any use of the information to criminally investigate or prosecute any alcohol or drug abuse patient.[facility] CenterIn the event this information is protected by the Federal Confidentiality of Alcohol and Drug Abuse Patient Records regulations: The Federal rules restrict any use of the information to criminally investigate or prosecute any alcohol or drug abuse patient.[facility] CenterIn the event this information is protected by the Federal Confidentiality of Alcohol and Drug Abuse Patient Records regulations: The Federal rules restrict any use of the information to criminally investigate or prosecute any alcohol or drug abuse patient.[facility] CenterIn the event this information is protected by the Federal Confidentiality of Alcohol and Drug Abuse Patient Records regulations: The Federal rules restrict any use of the information to criminally investigate or prosecute any alcohol or drug abuse patient.[facility] CenterIn the event this information is protected by the Federal Confidentiality of Alcohol and Drug Abuse Patient Records regulations: The Federal rules restrict any use of the information to criminally investigate or prosecute any alcohol or drug abuse patient.[facility] CenterIn the event this information is protected by the Federal Confidentiality of Alcohol and Drug Abuse Patient Records regulations: The Federal rules restrict any use of the information to criminally investigate or prosecute any alcohol or drug abuse patient.[facility] CenterIn the event this information is protected by the Federal Confidentiality of Alcohol and Drug Abuse Patient Records regulations: The Federal rules restrict any use of the information to criminally investigate or prosecute any alcohol or drug abuse patient.[facility] CenterIn the event this information is protected by the Federal Confidentiality of Alcohol and Drug Abuse Patient Records regulations: The Federal rules restrict any use of the information to criminally investigate or prosecute any alcohol or drug abuse patient.[facility] CenterIn the event this information is protected by the Federal Confidentiality of Alcohol and Drug Abuse Patient Records regulations: The Federal rules restrict any use of the information to criminally investigate or prosecute any alcohol or drug abuse patient.[facility] CenterIn the event this information is protected by the Federal Confidentiality of Alcohol and Drug Abuse Patient Records regulations: The Federal rules restrict any use of the information to criminally investigate or prosecute any alcohol or drug abuse patient.[facility] CenterIn the event this information is protected by the Federal Confidentiality of Alcohol and Drug Abuse Patient Records regulations: The Federal rules restrict any use of the information to criminally investigate or prosecute any alcohol or drug abuse patient.[facility] CenterIn the event this information is protected by the Federal Confidentiality of Alcohol and Drug Abuse Patient Records regulations: The Federal rules restrict any use of the information to criminally investigate or prosecute any alcohol or drug abuse patient.[facility] CenterIn the event this information is protected by the Federal Confidentiality of Alcohol and Drug Abuse Patient Records regulations: The Federal rules restrict any use of the information to criminally investigate or prosecute any alcohol or drug abuse patient.[facility] CenterIn the event this information is protected by the Federal Confidentiality of Alcohol and Drug Abuse Patient Records regulations: The Federal rules restrict any use of the information to criminally investigate or prosecute any alcohol or drug abuse patient.[facility] CenterIn the event this information is protected by the Federal Confidentiality of Alcohol and Drug Abuse Patient Records regulations: The Federal rules restrict any use of the information to criminally investigate or prosecute any alcohol or drug abuse patient.[facility] CenterIn the event this information is protected by the Federal Confidentiality of Alcohol and Drug Abuse Patient Records regulations: The Federal rules restrict any use of the information to criminally investigate or prosecute any alcohol or drug abuse patient.[facility] CenterIn the event this information is protected by the Federal Confidentiality of Alcohol and Drug Abuse Patient Records regulations: The Federal rules restrict any use of the information to criminally investigate or prosecute any alcohol or drug abuse patient.[facility] CenterIn the event this information is protected by the Federal Confidentiality of Alcohol and Drug Abuse Patient Records regulations: The Federal rules restrict any use of the information to criminally investigate or prosecute any alcohol or drug abuse patient.[facility] CenterIn the event this information is protected by the Federal Confidentiality of Alcohol and Drug Abuse Patient Records regulations: The Federal rules restrict any use of the information to criminally investigate or prosecute any alcohol or drug abuse patient.[facility] CenterIn the event this information is protected by the Federal Confidentiality of Alcohol and Drug Abuse Patient Records regulations: The Federal rules restrict any use of the information to criminally investigate or prosecute any alcohol or drug abuse patient.[facility] CenterIn the event this information is protected by the Federal Confidentiality of Alcohol and Drug Abuse Patient Records regulations: The Federal rules restrict any use of the information to criminally investigate or prosecute any alcohol or drug abuse patient.[facility] CenterIn the event this information is protected by the Federal Confidentiality of Alcohol and Drug Abuse Patient Records regulations: The Federal rules restrict any use of the information to criminally investigate or prosecute any alcohol or drug abuse patient.[facility] CenterIn the event this information is protected by the Federal Confidentiality of Alcohol and Drug Abuse Patient Records regulations: The Federal rules restrict any use of the information to criminally investigate or prosecute any alcohol or drug abuse patient.[facility] CenterIn the event this information is protected by the Federal Confidentiality of Alcohol and Drug Abuse Patient Records regulations: The Federal rules restrict any use of the information to criminally investigate or prosecute any alcohol or drug abuse patient.[facility] Reason for Visit (unrecogniz ed section and content) Reason Comments Pseudophakia Blurry Vision Both Eyes not as sharp Dry Eye(s) Both Eyes ATs PRN OU Eye Burning OU after reading Difficulty Reading Both Eyes Reason Comments Results Reason Onset Date Comments Results 12/01/2021 Reason Comments F/U 6 months Reason Comments F/U 6 Month Reason Comments fax information to Dr Limon office Reason Onset Date Comments Fall 07/15/2021 Reason Comments Mammogram Result Call Back Reason Onset Date Comments Refill Request 07/14/2022 Incomplete Reason Onset Date Comments Refill Request 07/14/2022 Reason Comments New Breast Reason Comments Post Op Left stereo breast b iopsy follow up Reason Comments Appointment Orders Reason Onset Date Comments F/U 6 months Labs prior Breast Problem 07/20/2023 Mammogram at [facility] Reason Comments Orders Reason Onset Date Comments Population Health Navigation Outreach 02/15/2024 Kenneth Bob PCSA Reason Comments Medicare Wellness Exam Reason Onset Date Comments Refill Request 07/25/2024 Reason Comments Insurance Authorization Reason Onset Date Comments F/U 6 months Labs prior Breast Problem 07/20/2024 Mammogram at [facility] Reason Comments Request Outside Medical Records Reason Comments Received Outside Medical [facility] Reason Comments Joint Pain Osteoarthritis Specialty Diagnoses / Procedures Referred By Maritza silva Referred To Contact Rheumatology Diagnoses Primary osteoarthritis involving multiple joints Procedures CONSULT TO RHEUM/IMMUN DISEASE OFFICE/OUTPATIENT NEW HIGH MDM 60 MINUTES Elisabeth Hoff APRN.HOLISTIC NUTRITIONIST [address] [place] [address] Phone: tel: fax: Referral ID Status Reason Start Date Expiration Date V isits Requested Visits Authorized [id number] Closed PCP Requested Referral 07/20/2024 07/20/2025 1 1 Reason Comments Appointment Reason Onset Date Comments Results 09/21/2024 Reason Comments Blood Pressure Check Shortness of Breath upon exertion carryi ng items up the steps or walking to car when out shopping were a couple of examples she mentioned Reason Comments established patient Reason Comments high risk medication use Blurred Vision Both Eyes Specialty Diagnoses / Procedures Referred By Maritza silva Referred To Contact Ophthalmology Diagnoses Pain of right hand Swelling of right middle finger Procedures CONSULT TO OPHTHALMOLOGY OFFICE/OUTPATIENT NEW HIGH MDM 60 MINUTES Lexis Roca PA-C [address] [place] [address] Phone: tel: fax: Referral ID Status Reason Start Date Expiration Date V isits Requested Visits Authorized [id number] Closed PCP Requested Referral 10/11/2024 10/11/2025 1 1 Reason Comments New Pain Specialty Diagnoses / Procedures Referred By Maritza t Referred To Contact Orthopedics Diagnoses Pain of right hand Swelling of right middle finger Procedures CONSULT TO ORTHOPAEDICS OFFICE/OUTPATIENT NEW HIGH MDM 60 MINUTES Lexis Roca PA-C [address] [place] [address] Phone: tel: fax: Referral ID Status Reason Start Date Expiration Date V isits Requested Visits Authorized [id number] Closed PCP Requested Referral 10/11/2024 10/11/2025 1 1 Care Teams (unrecognized sec tion and content) Net Architect Relationship Specialty Start Date End Date Preston Haney MD [address] [place] [address] PCP - General Internal Medicine 11/08/16 Net Architect Relationship Specialty Start Date End Date Preston Haney MD [address] [place] [address] PCP - General Internal Medicine 11/08/16 Net Architect Relationship Specialty Start Date End Date Preston Haney MD [address] [place] [address] PCP - General Internal Medicine 11/08/16 Net Architect Relationship Specialty Start Date End Date Preston Haney MD [address] [place] [address] PCP - General Internal Medicine 11/08/16 Net Architect Relationship Specialty Start Date End Date Preston Haney MD [address] [place] [address] PCP - General Internal Medicine 11/08/16 Net Architect Relationship Specialty Start Date End Date Preston Haney MD [address] [facility] [place] [address] PCP - General Internal Medicine 11/08/16 Net Architect Relationship Specialty Start Date End Date Preston Haney MD [address] [facility] [place] [address] PCP - General Internal Medicine 11/08/16 Net Architect Relationship Specialty Start Date End Date Preston Haney MD [address] [facility] [place] [address] PCP - General Internal Medicine 11/08/16 Net Architect Relationship Specialty Start Date End Date Preston Haney MD [address] [facility] [place] [address] PCP - General Internal Medicine 11/08/16 Net Architect Relationship Specialty Start Date End Date Preston Haney MD [address] [facility] [place] [address] PCP - General Internal Medicine 11/08/16 Net Architect Relationship Specialty Start Date End Date Preston Haney MD [address] [facility] [place] [address] PCP - General Internal Medicine 11/08/16 Team Status: Active Member Role Status Dates Dr. Parvez Roman MD Family Provider Active Dr. Preston Haney MD Primary Care Provider Active Team Status: Inactive Member Role Status Dates Dr. Preston Haney MD Primary Care Provider, Referr ing Provider Active Janeth Lopez FEATHER CUTTING MACHINE FEEDER, FEATHER CUTTING MACHINE FEEDER-C Attending Provider Active Team Status: Inactive Member Role Status Dates Dr. Preston Haney MD Primary Care Provider Active Dr. Miah Mart MD Attending Provider, Referring Provider Active Net Architect Relationship Specialty Start Date End Date Preston Haney MD [address] [facility] [place] [address] PCP - General Internal Medicine 11/08/16 Net Architect Relationship Specialty Start Date End Date Preston Haney MD [address] [facility] [place] [address] PCP - General Internal Medicine 11/08/16 Net Architect Relationship Specialty Start Date End Date Preston Haney MD [address] [place] [address] PCP - General Internal Medicine 11/08/16 Net Architect Relationship Specialty Start Date End Date Preston Haney MD [address] [place] [address] PCP - General Internal Medicine 11/08/16 Net Architect Relationship Specialty Start Date End Date Preston Haney MD [address] [place] [address] PCP - General Internal Medicine 11/08/16 Net Architect Relationship Specialty Start Date End Date Preston Haney MD [address] [place] [address] PCP - General Internal Medicine 11/08/16 Net Architect Relationship Specialty Start Date End Date Preston Haney MD [address] [facility] [place] [address] PCP - General Internal Medicine 11/08/16 Net Architect Relationship Specialty Start Date End Date Preston Haney MD [address] [facility] [place] [address] PCP - General Internal Medicine 11/08/16 Net Architect Relationship Specialty Start Date End Date Preston Haney MD [address] [place] [address] PCP - General Internal Medicine 11/08/16 Net Architect Relationship Specialty Start Date End Date Preston Haney MD [address] [place] [address] PCP - General Internal Medicine 11/08/16 Net Architect Relationship Specialty Start Date End Date Preston Haney MD [address] [place] [address] PCP - General Internal Medicine 11/08/16 Elisabeth Hoff APRN.HOLISTIC NUTRITIONIST [address] [place] [address] Tank Car Rep[employer]r Internal Medicine 06/18/24 Byron Sutton APRN.RAIL EXPRESS CLERK [address] [place] [address] Tank Car Rep[employer]r Internal Medicine 06/18/24 Net Architect Relationship Specialty Start Date End Date Preston Haney MD [address] [place] [address] PCP - General Internal Medicine 11/08/16 Elisabeth Hoff RADARMAN.HOLISTIC NUTRITIONIST [address] [place] [address] Tank Car Repairer Internal Medicine 06/18/24 Byron Sutton APRN.RAIL EXPRESS CLERK [facility] [place] [address] Tank Car Repairer Internal Medicine 06/18/24 Net Architect Relationship Specialty Start Date End Date Preston Haney MD [address] [place] [address] PCP - General Internal Medicine 11/08/16 Elisabeth Hoff APRN.HOLISTIC NUTRITIONIST [address] [place] [address] Tank Car Repairer Internal Medicine 06/18/24 Byron Sutton APRN.RAIL EXPRESS CLERK [address] [place] [address] Tank Car Repairer Internal Medicine 06/18/24 Net Architect Relationship Specialty Start Date End Date Preston Haney MD [address] [place] [address] PCP - General Internal Medicine 11/08/16 Elisabeth Hoff, RADARMAN.HOLISTIC NUTRITIONIST [address] [place] [address] Tank Car Repairer Internal Medicine 06/18/24 Byron Sutton APRN.RAIL EXPRESS CLERK [address] [place] [address] Tank Car Repairer Internal Medicine 06/18/24 Net Architect Relationship Specialty Start Date End Date Preston Haney MD [address] [place] [address] PCP - General Internal Medicine 11/08/16 Elisabeth Hoff RADARMAN.HOLISTIC NUTRITIONIST [address] [place] [address] Tank Car Repairer Internal Medicine 06/18/24 Byron Sutton APRN.RAIL EXPRESS CLERK [address] [place] [address] Tank Car Repairer Internal Medicine 06/18/24 Net Architect Relationship Specialty Start Date End Date Preston Haney MD [address] [facility] [place] [address] PCP - General Internal Medicine 11/08/16 Elisabeth Hoff, RADARMAN.HOLISTIC NUTRITIONIST [address] [place] [address] Tank Car Repairer Internal Medicine 06/18/24 Byron Sutton RADARMAN.RAIL EXPRESS CLERK [address] [place] [address] [facility] Internal Medicine 06/18/24 Net Architect Relationship Specialty Start Date End Date Preston Haney MD [address] [place] [address] PCP - General Internal Medicine 11/08/16 Elisabeth Hoff, RADARMAN.HOLISTIC NUTRITIONIST [address] [place] [address] [facility] Internal Medicine 06/18/24 Byron Sutton APRN.RAIL EXPRESS CLERK [address] [place] [address] [facility] Internal Medicine 06/18/24 Net Architect Relationship Specialty Start Date End Date Preston Haney MD [address] [place] [address] PCP - General Internal Medicine 11/08/16 Elisabeth Hoff, RADARMAN.HOLISTIC NUTRITIONIST [address] [facility] [place] [address] [facility] Internal Medicine 06/18/24 Byron Sutton APRN.RAIL EXPRESS CLERK [address] [place] [address] Tank Car Repairer Internal Medicine 06/18/24 Net Architect Relationship Specialty Start Date End Date Preston Haney MD [address] [place] [address] PCP - General Internal Medicine 11/08/16 Elisabeth Hoff, RADARMAN.HOLISTIC NUTRITIONIST [address] [place] [address] Tank Car Repairer Internal Medicine 06/18/24 Byron Sutton RADARMAN.RAIL EXPRESS CLERK [address] [place] [address] Tank Car Repairer Internal Medicine 06/18/24 Net Architect Relationship Specialty Start Date End Date Preston Haney MD [address] [place] [address] PCP - General Internal Medicine 11/08/16 Elisabeth Hoff, RADARMAN.HOLISTIC NUTRITIONIST [address] [place] [address] Tank Car Repairer Internal Medicine 06/18/24 Byron Sutton RADARMAN.RAIL EXPRESS CLERK [address] [facility] [place] [address] Tank Car Repairer Internal Medicine 06/18/24 Net Architect Relationship Specialty Start Date End Date Preston Haney MD [address] [place] [address] PCP - General Internal Medicine 11/08/16 Elisabeth Hoff, RADARMAN.HOLISTIC NUTRITIONIST [address] [facility] [place] [address] Tank Car Repairer Internal Medicine 06/18/24 Byron Sutton APRN.RAIL EXPRESS CLERK [address] [place] [address] Tank Car Repairer Internal Medicine 06/18/24 Net Architect Relationship Specialty Start Date End Date Preston Haney MD [address] [place] [address] PCP - General Internal Medicine 11/08/16 Elisabeth Hoff, RADARMAN.HOLISTIC NUTRITIONIST [address] [place] [address] Tank Car Repairer Internal Medicine 06/18/24 Byron Sutton APRN.RAIL EXPRESS CLERK [address] [place] [address] Tank Car Repairer Internal Medicine 06/18/24 Net Architect Relationship Specialty Start Date End Date Preston Haney MD [address] [place] [address] PCP - General Internal Medicine 11/08/16 Elisabeth Hoff, RADARMAN.HOLISTIC NUTRITIONIST [address] [place] [address] Tank Car Repairer Internal Medicine 06/18/24 Byron Sutton APRN.RAIL EXPRESS CLERK [address] [facility] [place] [address] Tank Car Repairer Internal Medicine 06/18/24 Net Architect Relationship Specialty Start Date End Date Preston Haney MD [address] [place] [address] PCP - General Internal Medicine 11/08/16 Elisabeth Hoff, RADARMAN.HOLISTIC NUTRITIONIST [address] [place] [address] Tank Car Repairer Internal Medicine 06/18/24 Byron Sutton RADARMAN.RAIL EXPRESS CLERK [address] [place] [address] Tank Car Repairer Internal Medicine 10/02/24 Net Architect Relationship Specialty Start Date End Date Preston Haney MD [address] [place] [address] PCP - General Internal Medicine 11/08/16 Elisabeth Hoff, RADARMAN.HOLISTIC NUTRITIONIST [address] [place] [address] Tank Car Repairer Internal Medicine 06/18/24 Byron Sutton RADARMAN.RAIL EXPRESS CLERK [address] [place] [address] Tank Car Repairer Internal Medicine 10/02/24 Net Architect Relationship Specialty Start Date End Date Preston Haney MD [address] [place] [address] PCP - General Internal Medicine 11/08/16 Elisabeth Hoff, RADARMAN.HOLISTIC NUTRITIONIST [address] [place] [address] Tank Car Repairer Internal Medicine 06/18/24 Byron Sutton RADARMAN.RAIL EXPRESS CLERK [address] [place] [address] Tank Car Repairer Internal Medicine 10/02/24 Net Architect Relationship Specialty Start Date End Date Preston Haney MD [address] [facility] [place] [address] PCP - General Internal Medicine 11/08/16 Elisabeth Hoff, RADARMAN.HOLISTIC NUTRITIONIST [address] [facility] [place] [address] Tank Car Repairer Internal Medicine 06/18/24 Byron Sutton RADARMAN.RAIL EXPRESS CLERK [address] [facility] [place] [address] Tank Car Repairer Internal Medicine 10/02/24 Net Architect Relationship Specialty Start Date End Date Preston Haney MD [address] [facility] [place] [address] PCP - General Internal Medicine 11/08/16 Elisabeth Hoff, RADARMAN.HOLISTIC NUTRITIONIST [address] [facility] [place] [address] Tank Car Repairer Internal Medicine 06/18/24 Byron Sutton, RADARMAN.RAIL EXPRESS CLERK [address] [facility] [place] [address] Tank Car Repairer Internal Medicine 10/02/24 Samuel Curiel [address] [place] [address], [place] [address] Ophthalmology 11/26/24 Net Architect Relationship Specialty Start Date End Date Preston Haney MD [address] [facility] [place] [address] PCP - General Internal Medicine 11/08/16 Elisabeth Hoff, RADARMAN.HOLISTIC NUTRITIONIST [address] [facility], [place] [address] Tank Car Repairer Internal Medicine 06/18/24 11/27/24 Byron Sutton, RADARMAN.RAIL EXPRESS CLERK [address] [place], [place] [address] [facility] Internal Medicine 10/02/24 Samuel Curiel [address] [facility] [place] [address] Ophthalmology 11/26/24 Elisabeth Hoff, RADARMAN.HOLISTIC NUTRITIONIST [address] [place], [place] [address] [facility] Internal Medicine 11/28/24 Net Architect Relationship Specialty Start Date End Date Preston Haney MD [address] [place] [address] PCP - General Internal Medicine 11/08/16 Elisabeth Hoff, RADARMAN.HOLISTIC NUTRITIONIST [address] [place], [place] [address] [facility] Internal Medicine 06/18/24 11/27/24 Byron Sutton, RADARMAN.RAIL EXPRESS CLERK [address] [place], [place] [address] [facility] Internal Medicine 10/02/24 Goals (unrecognized section and content) Goals may be documented in a n alternate sectionGoals may be documented in an alternate sectionGoals may be documented in an alternate section INFORMATION SOURCE (unrecogn ized section and content) DATE CREATED AUTHOR 06/12/2022 [facility] DATE CREATED AUTHOR 'S ORGANIZ ATION 12/11/2024 [facility] DATE CREATED AUTHOR AUTHOR'S ORGANIZ ATION 12/23/2024 [facility] FOR RECORDS PERTAINING TO PATIENTS WHO ARE OR HAVE BEEN ENROLLED IN A CHEMICAL DEPENDENCY/SUBSTANCEABUSE PROGRAM, SOME INFORMATION MAY BE OMITTED. This clinical summary was aggregated from multiple sources. Caution should be exercised in using it in the provision of clinical care. This summary normalizes information from multiple sources, and as a consequence, information in this document may materially change the coding, format and clinical context of patient data. In addition, data may be omitted in some cases. CLINICAL DECISIONS SHOULD BE BASED ON THE PRIMARY CLINICAL RECORDS. [facility] [employer] [facility]. provides no warranty or guarantee of the accuracy or completeness of information in this document.
--- NOTE | 2025-01-03 15:16 | STRESSREP ---
Stress Test Report Pharmacologic myocardial perfusion stress test. 84-year-old lady with a history of dyspnea Resting EKG demonstrates sinus rhythm with a rate of 71 bpm. Resting blood pressure is 152/80 mmHg. 0.4 mg of regadenoson was infused per usual protocol followed by rapid intravenous saline flush injection. Continuous EKG monitoring was performed. The maximum heart rate was 85 bpm which was 62% of max impacted heart rate the maximum workload was 1 metabolic equivalent. At rest there were no ST or T wave changes noted to suggest ischemia and at peak infusion nonspecific ST changes were noted which did not meet the criteria for ischemia. No clinical angina is noted. The final blood pressure was 128/74 mmHg. Myocardial perfusion protocol. 10.9 mCi of technetium 99m sestamibi was injected at rest. 0.4 mg of regadenoson was infused per usual protocol. At peak infusion 32.8 mCi of technetium 99m sestamibi was injected stress images were obtained stress and rest images were reconstructed and compared in the short axis vertical long and horizontal long axis. Gated images were also obtained. Perfusion SPECT analysis: Review of the stress images demonstrate normal uptake of tracer noted in all areas of the myocardium. There is a small area in the anteroseptal wall with reduced perfusion. The resting images similar demonstrated normal uptake of tracer noted with mild improvement in the septum and a small amount of septal ischemia cannot be completely excluded. Gated SPECT analysis: The gated ejection fraction is 79%. Conclusion: Mildly abnormal pharmacologic myocardial perfusion stress test. Mild septal ischemia Preserved ejection fraction.
== END | disposition home or self-care (01) ==
LOC: CVS 06:14
PROVIDERS: PCP Internal Medicine; Referring Provider Internal Medicine Cardiovascular Disease; Visit Provider Internal Medicine Cardiovascular Disease
DX: R06.02 Shortness of breath (principal)
CPT/HCPCS: 78452; 93017; A9500; A4216; J2785

== ENCOUNTER 2025-01-22 07:00 | Day surgery (SDC) | payer MEDICARE, SELFPAY ==
--- NOTE | 2025-01-14 09:55 | RAD_ITS ---
PROCEDURE: CHEST PA AND LATERAL 01/14/2025 REASON FOR EXAM: SOB TECHNIQUE: CHEST PA AND LATERAL COMPARISON: None FINDINGS: Hardware: None Heart: The heart size is normal. Arteriosclerotic vascular disease of the aorta is noted. Mediastinum: The mediastinal contour is unremarkable. Lungs: There is a linear density identified in the left costophrenic angle which may represent either atelectasis or parenchymal scarring. Remaining lung dove are clear. There are no consolidative processes, pleural effusions, pneumothoraces or pneumonic infiltrates. Bones: Diffuse osteopenia of the bony thorax is noted. There is a subtle dextroscoliosis of the thoracic spine. Mild degenerative changes of the thoracic spine are noted.Mild arthritic changes are seen involving the acromioclavicular joints bilaterally. RAD/Chest PA and Lateral IMPRESSION: The linear density in the left lung base could represent either atelectasis or parenchymal scarring. Diffuse osteopenia of the bony thorax is seen. There is a subtle dextroscolios is and degenerative changes of the thoracic spine. Mild degenerative changes of the acromioclavicular joints are noted bilaterally . Reading Location: [id number]
--- NOTE | 2025-01-14 09:55 | RAD_ITS ---
PROCEDURE: CHEST PA AND LATERAL 01/14/2025 REASON FOR EXAM: SOB TECHNIQUE: CHEST PA AND LATERAL COMPARISON: None FINDINGS: Hardware: None Heart: The heart size is normal. Arteriosclerotic vascular disease of the aorta is noted. Mediastinum: The mediastinal contour is unremarkable. Lungs: There is a linear density identified in the left costophrenic angle which may represent either atelectasis or parenchymal scarring. Remaining lung dove are clear. There are no consolidative processes, pleural effusions, pneumothoraces or pneumonic infiltrates. Bones: Diffuse osteopenia of the bony thorax is noted. There is a subtle dextroscoliosis of the thoracic spine. Mild degenerative changes of the thoracic spine are noted.Mild arthritic changes are seen involving the acromioclavicular joints bilaterally. RAD/Chest PA and Lateral IMPRESSION: The linear density in the left lung base could represent either atelectasis or parenchymal scarring. Diffuse osteopenia of the bony thorax is seen. There is a subtle dextroscolios is and degenerative changes of the thoracic spine. Mild degenerative changes of the acromioclavicular joints are noted bilaterally . Reading Location: [id number]
[2025-01-14 10:05] LABS: Hematocrit 38.1 % (37-47); Hemoglobin 13.1 g/dL (12.0-15.0); Immature Granulocytes Count 0.050 X10^3/uL (0.0-0.0); Mean Corp Hgb Conc 34.4 g/dL (32-36); Mean Corpuscular Volume 85.0 fL (81-99); Mean Platelet Vol. 10.7 fl (6.2-12.0); NRBC Flagged by Analyzer 0 % (0-5); Platelet Count 166 K/mm3 (150-450); RBC Distribution Width CV 13.5 % (11.6-14.6); RBC Distribution Width SD 42.2 fl (35.1-43.9); Red Blood Count 4.48 M/mm3 (4.2-5.4); White Blood Count 4.9 K/mm3 (4.4-11.0)
[2025-01-14 10:53] LABS: Anion Gap 12 (5-15); BUN 17 mg/dL (4-19); BUN/Creat Ratio 18.1 RATIO (10-20); Calcium,Total 9.5 mg/dL (7.6-11.0); Carbon Dioxide 22.7 mmol/L (21.0-32.0); Chloride 93 mmol/L (98-108); Glucose 99 mg/dL (70-99); Potassium 4.1 mmol/L (3.3-5.1)
--- NOTE | 2025-01-20 12:33 | PCM.HP.BLA ---
History and Physical Date of Admission: 01/22/25 Pleasant 83-year-old lady who presents for reestablishment of care. She has seen us a number of years ago for palpitations and was evaluated and asked to be seen on an as-needed basis. More recently she started experiencing some shortness of breath with exertion and had an echocardiogram performed which demonstrated preserved ejection fraction. She was noted to have mitral calcification on the posterior leaflet which was moderate but no other valvular abnormalities. Her ejection fraction was noted to be 56%. She tells me that her blood pressures have been up-and-down and not very well-controlled at home. She has been compliant with her medications. She did have a stress test in 2019 with no evidence of ischemia. Her blood pressure was noted to be elevated today. Her most recent lipid profile demonstrates total cholesterol 208 HDL of 61 LDL of 84. Because of her symptoms Patient underwent a diagnostic pharmacologic stress test in December 2023. This demonstrated: Mildly abnormal pharmacologic myocardial perfusion stress test. Mild septal ischemia Preserved ejection fraction. Medical History Arthritis Asymmetric hypertrophy of ventricular septum Back pain Benign paroxysmal positional vertigo, bilateral Breast calcifications Cancer Constipation DDD (degenerative disc disease) Diverticulosis Essential (primary) hypertension Fatigue Gastric ulcer GERD (gastroesophageal reflux disease) Heart murmur Heart palpitations History of diverticulitis History of edema History of hiatal hernia History of pain when walking Hyperlipidemia IBS (irritable bowel syndrome) Meniere disease Multinodular thyroid Osteoarthritis Raynaud disease Shortness of breath on exertion Uterovaginal prolapse, incomplete Surgical History History of bunionectomy History of carpal tunnel release of both wrists History of cholecystectomy History of hysterectomy Hx of tubal ligation Family History Mother Hypertension Brother Hypertension Father Heart disease Social History Smoking Status: Never smoker alcohol intake: never substance use type: does not use ROS Const Const: Positive for fatigue and headache(s); Negative for weakness, daytime sleepiness or difficulty sleeping ENT ENT: Positive for headache(s), dizziness and balance problems; Negative for Nosebleed/epistaxis Cardio Chest Pain: No Palpitations: No Edema: Bilateral (trace at times) Resp Respiratory: Positive for SOB with activity (climbing stairs); Negative for SOB at rest, SOB orthopnea\SOB lying down or Cough GI GI: Negative nausea, vomiting or heartburn Musc Musc: Positive for balance problems Neuro Neuro: Positive for dizziness and headache(s); Negative for lightheadedness, near syncope or weakness Endo Endo: Positive for fatigue Assessment & Plan Assessment/Plan (1) Abnormal stress test: (2) SOB (shortness of breath): PLAN: Plan Because of patient's abnormal stress test she is undergoing a diagnostic heart catheterization. Follow-up will be based upon findings.
[2025-01-21 08:31] VITALS: BMI 28.1
--- OUTSIDE RECORDS SUMMARY | 2025-01-22 07:07 | XMS RPT_ITS | CCD ---
Author Organization [facility] CliniSyct Care Team Providers Care Cryptologic Technician Operator/Analyst Name Role Phone Preston Haney MD Primary [...] Provider Dr. Preston Haney Referring Provider John DRAWING MACHINE OPERATOR, DRAWING MACHINE OPERATOR-C Janeth Mott Attending Provider [phone] Preston Haney MD Primary Care Provider Hoff GEOTECHNICAL ENGINEER.TOWING PILOT, Elisabeth Unavailable Herman GEOTECHNICAL ENGINEER.SUPERVISOR PROPELLANT CHARGE LOADING, Byron Unavailable Herman GEOTECHNICAL ENGINEER.SUPERVISOR PROPELLANT CHARGE LOADING, Byron Unavailable Herman GEOTECHNICAL ENGINEER.SUPERVISOR PROPELLANT CHARGE LOADING, Byron Unavailable Samuel Curiel Unavailable Hoff GEOTECHNICAL ENGINEER.TOWING PILOT, Elisabeth Unavailable Hoff GEOTECHNICAL ENGINEER.TOWING PILOT, Elisabeth Unavailable Kelli MEEKS, Dr. Gaspar Attending Provider Debora MEEKS, Dr. Preston Daigle Primary Care Provider Debora MEEKS, Dr. Preston Daigle Referring Provider Kelli MEEKS, Dr. Gaspar Referring Provider Kelli MEEKS, Dr. Gaspar Other Provider Kelli, Waverly Attending Unavailable Talampas, Preston D Referring Unavailable Talampas, Preston D Primary Care Unavailable Kelli, Waverly Referring Unavailable Talampas, Preston D Primary Care Unavailable Kelil, Waverly Attending Unavailable Kelli, Hbuert Referring Unavailable Talampas, Preston D Primary Care Unavailable Kelli, Waverly Attending Unavailable Vellanki, Jessica Referring Unavailable Talampas, Preston D Primary Care Unavailable Vellanki, Jessica Attending Unavailable Vellanki, Jessica Referring Unavailable Talampas, Preston D Primary Care Unavailable Vellanki, Jessica Attending Unavailable Talampas, Preston D Primary Care Unavailable Vellanki, Jessica Attending Unavailable Vellanki, Jessica Referring Unavailable Talampas, Preston D Primary Care Unavailable Friend, Gavino Attending Unavailable Friend, Gavino Referring Unavailable Talampas, Preston D Primary Care Unavailable Talampas, Preston D Referring Unavailable Adelina Marques Attending Unavailable Friend, Gavino Attending Unavailable Friend, Gavino Attending Unavailable Kelli, Waverly Referring Unavailable Kelli, Waverly Consulting Unavailable Talampas, Preston D Primary Care Unavailable Kelli, Hubert Attending Unavailable Talampas, Preston D Primary Care Unavailable Friend, Gavino Consulting Unavailable Friend, Gavino Attending Unavailable Friend, Gavino Referring Unavailable ABELINO, LEXIS Attending Unavailable HOFF, ELISABETH Referring Unavailable TALAMPAS, PRESTON D Primary Care Unavailable ABELINO, LEXIS Referring Unavailable TALAMPAS, PRESTON D Primary Care Unavailable ABELINO, LEXIS Referring Unavailable TALAMPAS, PRESTON D Primary Care Unavailable ABELINO, LEXIS Referring Unavailable JV BROOKS Attending Unavailable TALAMPAS, PRESTON D Primary Care Unavailable BYRON SUTTON Attending Unavailable HOFF, ELISABETH Referring Unavailable TALAMPAS, PRESTON D Primary Care Unavailable TALAMPAS, PRESTON D Referring Unavailable TALAMPAS, PRESTON D Primary Care Unavailable ABELINO, LEXIS Referring Unavailable ABELINO, LEXIS Attending Unavailable TALAMPAS, PRESTON D Primary Care Unavailable HERMAN, BYRON Referring Unavailable TALAMPAS, PRESTON D Primary Care Unavailable ELIA OLIVARES Attending Unavailable ABELINO, LEXIS Referring Unavailable TALAMPAS, PRESTON D Primary Care Unavailable TALAMPAS, PRESTON D Referring Unavailable TALAMPAS, PRESTON D Primary Care Unavailable ABELINO, LEXIS Referring Unavailable ABELINO, LEXIS Attending Unavailable TALAMPAS, PRESTON D Primary Care Unavailable HERMAN, BYRON Attending Unavailable TALAMPAS, PRESTON D Primary Care Unavailable HERMAN, BYRON Attending Unavailable SELF Referring Unavailable TALAMPAS, PRESTON D Primary Care Unavailable HERMAN, BYRON Referring Unavailable TALAMPAS, PRESTON D Primary Care Unavailable TALAMPAS, PRESTON D Primary Care Unavailable SELF Referring Unavailable TALAMPAS, PRESTON D Attending Unavailable Allergies Allergy Classification Reported Allergen(s) Allergy Type Date of Onset Reaction(s) Facility Alendronate (1 source) Alendronate Drug Allergy 6 Intolerance [facility] Cetirizine (1 source) Cetirizine Drug Allergy 6 Intolerance [facility] Niacin (1 source) Niacin Drug Allergy 6 Intolerance [facility] NITROFURANTOIN, MACROCRYSTALS / Nitrofurantoin, Monohydrate (1 source) NITROFURANTOIN, MACROCRYSTALS / Nitrofurantoin, Monohydrate Drug Allergy 1 Intolerance [facility] Work Phone: [phone] NSAIDs (1 source) celecoxib Drug Allergy 6 Rash [facility] Work Phone: Opioid Agonists (1 source) Codeine Drug Allergy 6 Intolerance [facility] Penicillins (antibiotic) (1 source) Penicillins Drug Allergy 6 Hives [facility] Pollen (1 source) Grass pollen Substance Allergy 8 [facility] rofecoxib (1 source) rofecoxib Drug Allergy 6 Intolerance [facility] Sulfonamides (antibiotic) (1 source) Sulfonamides (Antibiotic) Drug Allergy 6 Intolerance [facility] (20 sources) Alendronate; Translations: [ALENDRONATE SODIUM] Drug Allergy 6 Intolerance [facility] (20 sources) celecoxib; Translations: [CELECOXIB] Drug Allergy 6 [facility] Work Phone: (20 sources) Cetirizine; Translations: [CETIRIZINE HCL] Drug Allergy 6 Intolerance [facility] (20 sources) Codeine; Translations: [CODEINE] Drug Allergy 6 Intolerance [facility] (20 sources) Grass pollen; Translations: [GRASS POLLEN] Propensity to adverse reactions [address] [place] [address] Work Phone: (20 sources) Niacin; Translations: [NIACIN] Drug Allergy 6 [facility] (20 sources) NITROFURANTOIN, MACROCRYSTALS / Nitrofurantoin, Monohydrate; Translations: [NITROFURANTOIN MONOHYD/M-CRYST] Drug Allergy 1 [facility] (17 sources) Penicillins; Translations: [PENICILLINS] Propensity to adverse reactions [address] [facility] Work Phone: (20 sources) rofecoxib; Translations: [ROFECOXIB] Drug Allergy 6 [facility] (20 sources) Sulfonamides (Antibiotic); Translations: [SULFA (SULFONAMIDE ANTIBIOTICS)] Drug Intolerance 6 Intolerance [facility] (4 sources) Cetirizine Drug Allergy 1 [facility] (20 sources) Penicillins Propensity to adverse reactions [address] [facility] Work Phone: (3 sources) Penicillins Allergy to substance [address] [facility] (3 sources) Sulfonamides (Antibiotic) Propensity to adverse reactions 1 [facility] Comment on above: Stomach pain (20 sources) Sucralfate; Translations: [SUCRALFATE] Drug Allergy 5 [facility] Work Phone: (9 sources) Penicillins Propensity to adverse reactions [address] [facility] (1 source) Nitrofurantoin Drug Allergy 5 Other [facility] Comment on above: Stomach pain (1 source) Alendronate Drug Allergy 5 [facility] (1 source) celecoxib Drug Allergy 5 [facility] (1 source) Cetirizine Drug Allergy 5 [facility] (1 source) Codeine Drug Allergy 5 [facility] (1 source) Niacin Drug Allergy 5 [facility] (1 source) Nitrofurantoin Drug Allergy 5 [facility] (1 source) Penicillins Drug allergy (disorder) 5 [facility] (1 source) rofecoxib Drug Allergy 5 [facility] (1 source) Sucralfate Drug Allergy 5 [facility] (1 source) Sulfonamides (Antibiotic) Drug allergy (disorder) 5 [facility] Rep[facility] Medications Current Medications Medication Drug Class(es) Dates Sig (Normalized) Sig (Original) allopurinol 100 mg oral tablet (2 sources) Xanthine Oxidase Inhibitor Start: 01-16-2025 take 1 tablet by mouth once daily allopurinol (ZYLOPRIM) 100 mg tablet Indications: Pain of right hand , Swelling of right middle finger , Bilateral hand pain , Primary osteoarthritis involving multiple joints , Raynaud's disease without gangrene , History of gastric ulcer Take 1 tablet by mouth once daily. 90 tablet 01/16/2025 Active amLODIPine 5 mg oral tablet (6 sources) Dihydropyridine Calcium Channel Gregor Start: 11-14-2024 End: 11-14-2024 take 1 tablet by mouth once daily amLODIPine (NORVASC) 5 mg tablet Take 1 tablet by mouth once daily. 11/14/2024 Active benoxinate hydrochloride 4 mg/ml / fluorescein sodium 2.5 mg/ml ophthalmic solution (1 source) Diagnostic Dye Start: 10-08-2021 End: 10-08-2021 fluorescein-benoxin ate 0.25-0.4 % 1 Drop (FLURESS) calcitriol 0.44738 mg oral capsule (20 sources) Vitamin D3 Analog Start: 12-26-2019 End: 07-20-2024 take 1 capsule by mouth once daily calcitriol (ROCALTROL) 0.25 mcg capsule Take 1 capsule by mouth once daily. 90 capsule 3 07/20/2024 Active Comment on above: Take 1 capsule by [facility] once daily. calcium carbonate 1500 mg oral tablet (12 sources) Start: 11-02-2024 Calcium Carbonate (Calcium 600) 600 mg calcium (1,500 mg) tablet Active 1200 mg PO daily November 02, 2024 12:00am cephalexin 500 mg oral capsule (6 sources) Cephalosporin Antibacterial Start: 06-11-2022 End: 06-18-2022 take 1 capsule by mouth twice daily [...] Comment on above: Take 1 capsule by [facility] twice daily for 7 days. Take 1 capsule by [facility] twice daily for 5 days. cholecalciferol 0.05 mg oral capsule (20 sources) Vitamin D Start: 05-28-20 take 1 capsule by mouth once daily Cholecalciferol (Vitamin D3) (Vitamin D3) 50 mcg (2,000 unit) capsule Active 50 ug PO DAILY May 28, 2024 1:00am take 1 tablet by mouth once tayo y cholecalciferol (VITAMIN D3) 50 mcg (2,000 unit) tablet Take 2,000 Units by mouth once daily. Active Comment on above: Take 2,000 Units by mouth once daily. ciprofloxacin 250 mg oral tablet (3 sources) Quinolone Antimicrobial Start: 11-29-19 End: 12-04-19 take 1 tablet by mouth twice daily ciprofloxacin HCl (CIPRO) 250 mg tablet Take 1 tablet by mouth twice daily for 5 days. 10 tablet 0 11/28/2021 12/03/2021 Active Comment on above: Take 1 tablet by karli twice daily for 5 days. colchicine 0.6 mg oral tablet (2 sources) Start: 01-17-20 take 1 tablet by mouth once daily colchicine 0.6 mg tablet Indications: Pain of right hand , Swelling of right middle finger , Bilateral hand pain , Primary osteoarthritis involving multiple joints , Raynaud's disease without gangrene , History of gastric ulcer Take 1 tablet by mouth once daily. 30 tablet 01/16/2025 Active estradiol 0.1 mg/ml vaginal cream (20 sources) Estrogen Start: 05-28-20 Estradiol 0.01 % (0.1 mg/gram) cream Active 1 [facility] VAGINAL MOFR May 28, 2024 1:00am Start: 08-01-2023 End: 08-13-2024 estradiol (ESTRACE) 0.01 % ( 0.1 mg/gram) [...] THEN 1 g two times a week. lisinopril 20 mg oral tablet (2 sources) Angiotensin Converting Enzyme Inhibitor Start: take 1 tablet by mouth twice daily lisinopril (ZESTRIL) 20 mg tablet Take 20 mg by mouth two times a day. 01/15/2025 Active lovastatin 40 mg oral tablet (20 sources) HMG-CoA Reductase Inhibitor Start: End: take 1 tablet by mouth once daily at bedtime lovastatin 40 mg tablet Take 1 tablet by mouth daily at bedtime. 90 tablet 3 07/20/2024 Active Start: 12-26-2019 End: 07-28-2023 take 1 tablet by mouth once daily at bedtime lovastatin 40 mg tablet Take 1 tablet by mouth daily at bedtime. 30 tablet 0 07/20/2023 07/28/2023 Discontinued Comment on above: Take 1 tablet by karli th daily at bedtime. methylcellulose 500 mg oral tablet (20 sources) Start: 11-03-19 take 1 tablet by mouth twice daily Methylcellulose (Laxative) (Citrucel) 500 mg tablet Active 1000 mg PO TWICE A DAY November 02, 2024 9:01am Start: 09-06-2023 End: 11-02-2024 take 1 tablet by mouth once daily Methylcellulose (Laxative) (Citrucel) 500 mg tablet Discontinued 500 mg PO DAILY September 06, 2023 10:39am November 02, 2024 9:03am Start: 12-26-2019 End: 09-06-2023 take 1 tablet by mouth twice daily Methylcellulose (Laxative) (Citrucel) 500 mg tablet Discontinued 500 mg PO TWICE A DAY December 26, 2019 12:00am September 06, 2023 10:44am Start: 07-17-2010 Methylcellulos e, Laxative, 500 mg tab TAKE TWO TABLETS TWICE DAILY 0 07/17/2010 Active Comment on above: TAKE TWO TABLETS TWI CE DAILY 24 hr metoprolol succinate 50 mg extended release oral tablet (20 sources) beta-Adrenergic Gregor Start: 12-26-2019 End: 11-02-2024 take 1 tablet by mouth once daily in the morning, then take 0.5 tablet by mouth once metoprolol succinate ER (TOPROL XL) 50 mg 24 hr tablet Take 1 tablet by mouth every morning AND 0.5 tablets every afternoon. 135 tablet 3 07/20/2024 Active Start: 12-26-2019 End: 12-26-2019 take 1 tablet by mouth twice daily Metoprolol Succinate 50 mg tablet extended release 24 hr Discontinued 50 mg PO TWICE A DAY December 26, 2019 12:00am December 26, 2019 4:27pm Comment on above: Take 1 tablet by karli th every morning AND 0.5 tablets every afternoon. Mineral Oil oil (2 sources) Start: 11-14-2024 take 1 mL by mouth once daily Mineral Oil oil Active 15 mL PO daily November 14, 2024 12:00am Start: 09-06-2023 End: 11-02-2024 take 1 mL by mouth at bedtime Mineral Oil oil Disconti nued 15 mL PO AT BEDTIME September 06, 2023 1:00am November 02, 2024 9:02am MINERAL OIL ORAL (20 sources) MINERAL OIL [...] TABLET PO DAILY December 26, 2019 12:00am Multivitamin tablet (1 source) Start: 12-26-2019 Multivitamin tablet Active 1 {tbl} PO DAILY December 26, 2019 12:00am nortriptyline 25 mg oral capsule (20 sources) Tricyclic Antidepressant Start: 12-26-2019 End: 07-20-2024 take 1 capsule by mouth once daily at bedtime nortriptyline (PAMELOR) 25 mg capsule Take 1 capsule by mouth daily at bedtime. 90 capsule 3 07/20/2024 Active Comment on above: Take 1 capsule by mo uth daily at bedtime. [place]-3 Fatty Acids (Fish Oil Concentrate) 1,000 mg capsule (4 sources) Start: 12-26-2019 take 1 capsule by mouth once daily [place]-3 Fatty Acids (Fish Oil Concentrate) 1,000 mg capsule Active 1000 mg PO DAILY December 26, 2019 12:00am Start: 12-26-2019 take 1 capsule by mo uth once daily [place]-3 Fatty Acids (Fish Oil Concentrate) 1,000 mg capsule Active 1000 MG PO DAILY December 25, 2019 11:00pm Start: 12-26-2019 take 1 capsule by mo ut once daily [place]-3 Fatty Acids (Fish Oil Concentrate) 1,000 mg [...] capsule (20 sources) Proton Pump Inhibitor Start: 12-26-2019 End: 08-10-2024 take 1 capsule by mouth twice daily before mealtime omeprazole (PRILOSEC) 20 mg capsule Take 1 capsule by mouth two times a day. 1/2 HR BEFORE MEAL. 180 capsule 3 08/10/2024 Active Comment on above: Take 1 capsule by [facility] twice daily. 1/2 HR BEFORE MEAL. Take 1 capsule by [facility] two times a day. 1/2 HR BEFORE MEAL. polyethylene glycol 3350 40450 mg powder for oral solution (20 sources) Osmotic Laxative Start: 10-28-2017 polyethylene glycol 3350 (MIRALAX, GLYCOLAX) 17 gram/dose powder Take 17 g by mouth once daily. 3 Bottle 3 10/28/2017 Active Comment on above: Take 17 g by mouth o nce daily. predniSONE 5 mg oral tablet (7 sources) Start: 09-20-2024 End: 10-04-2024 take 2 tablets by mouth once daily, then take 1 tablet by mouth once daily predniSONE (DELTASONE) 5 mg tablet Take 2 tablets by mouth once daily for 7 days, THEN 1 tablet once daily for 7 days. 21 tablet 09/20/2024 10/04/2024 Active proparacaine hydrochloride 5 mg/ml ophthalmic solution (2 sources) Local Anesthetic Start: 11-26-2024 End: 11-26-2024 proparacaine 0.5 % 1 drop (ALCAINE) Start: [...] on Tue11/26/24 at 1000, Until Tue11/26/24 at 2158, Administer for dilation Start: 10-08-2021 End: 10-08-2021 tropicamide 1 % 1 Drop (MYDR IACYL) Completed/Discontinued Medications Medication Drug Class(es) Dates Sig (Normalized) Sig (Original) aspirin 81 mg delayed release oral tablet (20 sources) Platelet Aggregation Inhibitor, Nonsteroidal Anti-inflammatory Drug Start: 11-26-2014 End: 11-02-2024 take 1 tablet by mouth once daily Aspirin (Adult Aspirin Regimen) 81 mg tablet,delayed release (DR/EC) Discontinued 81 mg PO DAILY December 26, 2019 12:00am November 02, 2024 9:02am Comment on above: Take 1 tablet by karli once daily. betamethasone 0.5 mg/ml / clotrimazole 10 mg/ml topical cream (4 sources) Azole Antifungal, Corticosteroid Start: 12-23-2020 End: 11-02-2024 Clotrimazole-Beta methasone 1-0.05 % cream Discontinued 1 NMA TOPICAL TWICE A DAY December 23, 2020 12:00am November 02, 2024 9:02am Start: 12-23-2020 Clotrimazole-B etamethasone Active 1 APPLIC TOPICAL TWICE A DAY December 22, 2020 11:00pm clobetasol propionate 0.0005 mg/mg topical ointment (20 sources) Corticosteroid Start: 08-25-2021 End: 02-07-2023 clobetasol (TEMOVATE) 0.05 % ointment Indications: Lichen [...] twice weekly. cycloSPORINE 0.5 mg/ml ophthalmic suspension (4 sources) Calcineurin Inhibitor Immunosuppressant Start: 12-26-2019 End: 12-26-2019 Cyclosporine (Restasis) 0.05 % dropperette Discontinued 1 NMA OPHTHALMIC Q12H December 26, 2019 12:00am December 26, 2019 3:48pm fluorometholone 1 mg/ml ophthalmic suspension (4 sources) Corticosteroid Start: 12-26-2019 End: 12-23-2020 Fluorometholone 0.1 % drops,suspension Discontinued 1 NMA OPHTHALMIC EVERY 6 HOURS December 26, 2019 12:00am December 23, 2020 10:45am folic acid 1 mg oral tablet (3 sources) Start: 04-03-2024 End: 11-02-2024 take 2 tablets by mouth once daily Folic Acid 1 mg tablet Discontinued 2 mg PO DAILY May 28, 2024 1:00am November 02, 2024 9:02am hydroCHLOROthiazide 12.5 mg / lisinopril 20 mg oral tablet (20 sources) Thiazide Diuretic, Angiotensin Converting Enzyme Inhibitor Start: 08-01-2023 End: 01-18-2025 take 1 tablet by mouth twice daily lisinopril-hydroCH LOROthiazide (ZESTORETIC) 20-12.5 mg per tablet Take 1 tablet by mouth two times a day. 180 tablet 3 07/20/2024 01/18/2025 Discontinued Start: 07-20-2023 End: 07-28-2023 take 1 tablet by mouth twice daily lisinopril-hydroCHLOROthiazide (ZESTORET IC) 20-12.5 mg per tablet Take 1 tablet by mouth two times a day. 60 tablet 0 07/20/2023 07/28/2023 Discontinued Start: 12-26-2019 End: 07-14-2022 take 1 tablet by mouth twice daily lisinopril-hydroCHLOROthiazide (PRINZIDE,ZESTORETIC) 20-12.5 mg per tablet Take 1 tablet by mouth twice daily. ( adjusted dose and sent RX) 180 tablet 3 06/30/2021 07/14/2022 Discontinued Start: 12-26-2019 End: 12-26-2019 Lisinopril-Hydrochlorothiazi de 20-12.5 mg tablet Discontinued 1 {tbl} PO DAILY December 26, 2019 12:00am December 26, 2019 4:29pm Start: 12-26-2019 End: 02-06-2021 take 1 tablet [...] day. hydroxychloroquine sulfate 200 mg oral tablet (6 sources) Antimalarial, Antirheumatic Agent Start: 2024 End: 2024 take 1 tablet by mouth once daily hydrOXYchloroQUINE (PLAQUENIL) 200 mg tablet Indications: Pain of right hand , Swelling of right middle finger Take 1 tablet by mouth once daily. 90 tablet 1 10/11/2024 01/16/2025 Discontinued leucovorin 15 mg oral tablet (3 sources) Folate Analog Start: 2023 End: 2024 Leucovorin Calcium 15 mg tablet Discontinued 15 mg PO WE May 28, 2024 1:00am November 02, 2024 9:05am lifitegrast 50 mg/ml ophthalmic solution (4 sources) Lymphocyte Function-Associated Antigen-1 Antagonist Start: 2019 End: 2020 Lifitegrast 5 % dropperette Discontinued 1 NMA OPHTHALMIC Q12H December 26, 2019 12:00am December 23, 2020 10:45am methenamine hippurate 1000 mg oral tablet (4 sources) Start: 2021 take 1 tablet by mouth twice daily at mealtime Methenamine Hippurate (HIPREX) 1 gram tablet Indications: Recurrent UTI Take 1 tablet by mouth twice daily with meals. 180 tablet 3 09/08/2021 Active Comment on above: Take 1 tablet by karli th twice daily with meals. methotrexate 2.5 mg oral tablet (3 sources) Folate Analog Metabolic Inhibitor Start: 2023 End: 2024 take 5 tablets by mouth every week Methotrexate Sodium 2.5 mg tablet Discontinued 12.5 mg PO EVERY WEEK May 28, 2024 1:00am November 02, 2024 9:02am polyethylene glycol 3350 500764 mg / potassium chloride 2970 mg / sodium bicarbonate 6740 mg / sodium chloride 5860 mg / sodium sulfate 57505 mg powder for oral solution (1 source) Osmotic Laxative Start: 2023 End: 2024 Peg 3350-Electrolytes (Golytely) 236-22.74-6.74 -5.86 gram recon soln Discontinued 240 mL PO Q10M 4000 0 April 20, 2024 12:00am November 02, 2024 9:02am until fecal effluent is clear Sucralfate (Carafate) 100 mg/mL suspension (1 source) Start: 2023 End: 2024 take 1 mL by mouth every six hours Sucralfate (Carafate) 100 mg/mL suspension Discontinued 10 mL PO EVERY 6 HOURS 1000 5 May 30, 2024 1:00am November 02, 2024 9:04am trimethoprim 100 mg oral tablet (16 sources) Dihydrofolate Reductase Inhibitor Antibacterial Start: 2021 End: 2022 take 1 tablet by mouth once daily trimethoprim (PROLOPRIM) 100 mg tablet Take 1 tablet by mouth once daily. 30 tablet 2 12/18/2021 02/07/2023 Discontinued Comment on above: Take 1 tablet by karli th once daily. Problems Active Problems Problem Classification Problem Date Documented Date Episodic/Chronic Blindness and vision defects (2 sources) Subjective visual disturbance; Translations: [Unspecified subjective visual disturbances] Episodic Cardiac dysrhythmias (6 sources) Palpitations; Translations: [Palpitations] Onset: 5 12-23-2020 Episodic Cataract (2 sources) Pseudophakia; Translations: [Presence of intraocular lens] Chronic Conditions associated with dizziness or vertigo (20 sources) Active cochleovestibular Meniere's disease; Translations: [Meniere's disease, unspecified ear] Onset: 7 08-03-2006 Chronic Diabetes mellitus without complication (20 sources) Prediabetes; Translations: [Prediabetes] Onset: 6 11-16-2015 Episodic Disorders of lipid metabolism (20 sources) Mixed hyperlipidemia; Translations: [Mixed hyperlipidemia] Onset: 6 07-13-2015 Chronic Diverticulosis and diverticulitis (1 source) Diverticula of intestine; Translations: [Diverticulosis of intestine, part unspecified, without perforation or abscess without bleeding] 11-02-2024 Chronic Esophageal disorders (20 sources) Gastroesophageal reflux disease; Translations: [Gastro-esophageal reflux disease without esophagitis] Onset: 8 07-06-2016 Chronic Essential hypertension (20 sources) Essential hypertension; Translations: [Essential (primary) hypertension] Onset: 6 11-24-2020 Chronic Fluid and electrolyte disorders (4 sources) Hyponatremia; Translations: [Hypo-osmolality and hyponatremia] Onset: 5 07-20-2024 Episodic Gastroduodenal ulcer (except hemorrhage) (1 source) Gastric ulcer; Translations: [Gastric ulcer, unspecified as acute or chronic, without hemorrhage or perforation] 11-02-2024 Chronic Heart valve disorders (3 sources) Heart murmur; Translations: [Cardiac murmur, unspecified] Onset: 5 10-02-2024 Episodic Malaise and fatigue (6 sources) Fatigue; Translations: [Other fatigue] Onset: 5 12-26-2019 Episodic Nonmalignant breast conditions (5 sources) Microcalcifications of the breast; Translations: [Mammographic microcalcification found on diagnostic imaging of breast] Episodic Nutritional deficiencies (5 sources) Vitamin D deficiency; Translations: [Vitamin D deficiency, unspecified] Onset: 5 Chronic Osteoarthritis (20 sources) Degenerative joint disease involving multiple joints; Translations: [Polyosteoarthritis, unspecified] Onset: 6 07-13-2015 Chronic Other aftercare (1 source) Drug therapy finding; Translations: [Other termite technician (current) drug therapy] 10-11-2024 Episodic Other aftercare (1 source) Taking high risk medication; Translations: [Other termite technician (current) drug therapy] 11-26-2024 Episodic Other aftercare (2 sources) Other termite technician (current) drug therapy; Translations: [Long-term use of Plaquenil] Onset: 5 Episodic Other and ill-defined heart disease (1 source) Atrial hypertrophy 10-02-2024 Chronic Other and ill-defined heart disease (3 sources) Ventricular hypertrophy ; Translations: [Cardiomegaly] 10-02-2024 Chronic Other and ill-defined heart disease (2 sources) Cardiomegaly; Translations: [Cardiomegaly] Onset: 5 Chronic Other circulatory disease (20 sources) Raynaud's disease; Translations: [Raynaud's syndrome without gangrene] 06-13-2006 Chronic Other circulatory disease (1 source) Raynaud's syndrome without gangrene; Translations: [Raynaud's disease without gangrene] Onset: 6 Chronic Other connective tissue disease (1 source) Swelling of lower leg; Translations: [Other specified soft tissue disorders] 08-22-2023 Episodic Other connective tissue disease (6 sources) Pain of bilateral hands; Translations: [Pain in right hand] 09-20-2024 Episodic Other connective tissue disease (7 sources) Pain in right hand; Translations: [Pain in right hand] 09-24-2024 Episodic Other connective tissue disease (5 sources) Swelling of finger ; Translations: [Other specified soft tissue disorders] 10-11-2024 Episodic Other connective tissue disease (2 sources) Pain in right hand; Translations: [Pain of right hand] Onset: 5 Episodic Other connective tissue disease (1 source) Other specified soft tissue disorders; Translations: [Swelling of right middle finger] Onset: 5 Episodic Other diseases of bladder [...] diarrhea] Onset: 1 Chronic Other gastrointestinal disorders (4 sources) Constipation; Translations: [Constipation, unspecified] 08-19-2022 Episodic Other gastrointestinal disorders (4 sources) Smearing feces; Translations: [Fecal smearing] 12-11-2021 Episodic Other gastrointestinal disorders (5 sources) Constipation, unspecified; Translations: [Constipation, unspecified] Episodic Other gastrointestinal disorders (3 sources) Fecal smearing; Translations: [Fecal smearing] Episodic Other gastrointestinal disorders (2 sources) Chronic constipation; Translations: [Other constipation] 08-22-2023 Episodic Other lower respiratory disease (4 sources) Dyspnea; Translations: [Shortness of breath] 09-20-2024 Episodic Other lower respiratory disease (3 sources) Dyspnea on exertion; Translations: [Other forms of dyspnea] 10-02-2024 Episodic Other nervous system disorders (2 sources) Neuropathy; Translations: [Polyneuropathy, unspecified] 09-20-2024 Chronic Other nervous system disorders (1 source) Polyneuropathy, unspecified; Translations: [Neuropathy] Onset: Chronic Other non-traumatic joint disorders (1 source) Polyarthropathy; Translations: [Polyarthritis, unspecified] 12-23-2023 Chronic Other nutritional; endocrine; and metabolic disorders (1 source) Blood urate raised; Translations: [Hyperuricemia without signs of inflammatory arthritis and tophaceous disease] 10-02-2024 Episodic Other screening for suspected conditions (not mental disorders or infectious disease) (13 sources) Patient encounter status; Translations: [Encounter for screening mammogram for malignant neoplasm of breast] Onset: 5 07-09-2022 Episodic Prolapse of female genital organs (20 sources) Disorder of rectum; Translations: [Rectocele] Onset: 7 Resolved: 0 09-29-2009 Chronic Rheumatoid arthritis and related disease (1 source) Inflammatory polyarthropathy; Translations: [Inflammatory polyarthropathy] Onset: 4 Chronic Screening and history of mental health and substance abuse codes (2 sources) Encounter for screening for depression; Translations: [Encounter for screening examination for other mental health and behavioral disorders] Onset: 5 Episodic Spondylosis; intervertebral disc disorders; other back [...] Translations: [Unspecified visual loss] Onset: 04-21-2010 Resolved: 07-06-2016 07-06-2021 Chronic Conditions associated with dizziness or vertigo (20 sources) Benign paroxysmal positional vertigo; Translations: [Benign paroxysmal vertigo, unspecified ear] Onset: 08-03-2006 08-03-2006 Episodic Gastritis and duodenitis (20 sources) Gastritis; Translations: [Other gastritis without bleeding] Onset: 05-27-2008 Resolved: 07-06-2016 07-06-2016 Episodic Gastroduodenal ulcer (except hemorrhage) (5 sources) H/O: gastric ulcer; Translations: [Personal history of peptic ulcer disease] Onset: 09-20-2024 09-20-2024 Episodic Gastrointestinal hemorrhage (1 source) Hemorrhage of [...] drug level monitoring] Onset: 07-12-2024 Episodic Other connective tissue disease (1 source) Pain in left hand; Translations: [Bilateral hand pain] Onset: 09-20-2024 Episodic Other female genital disorders (1 source) [...] constipation and diarrhea] Onset: 08-25-2021 Episodic Other lower respiratory disease (3 sources) Shortness of breath; Translations: [Shortness of breath] Onset: 09-20-2024 Episodic Other lower respiratory disease (1 source) Other forms of dyspnea; Translations: [WALTERS (dyspnea on exertion)] Onset: 10-16-2024 Episodic Residual codes; unclassified (20 sources) Persistent [...] Test Name Value Interpretation Reference Range Facility CNOVon 01-18-2025 CNOV Office Visit (INTMWS ) CONCEPCION DONALDSON ([id number]) 1940 F Date Time Provider Department 01/18/25 10:00 AM BYRON SUTTON INTMWS During your visit today, we recorded the following information about you: Pulse Respiration Blood pressure Weight 92/minute 16/minute 126/66 73 kg Byron Sutton APRN.SUPERVISOR [employer] 01/18/2025 10:47 AM Signed SUBJECTIVE Concepcion Donaldson is a 84 year old female here today for a check up on her medical problems. Chief Complaint Patient presents with: F/U 6 Month HPI Concepcion Donaldson is a 84-year-old female with a history of dyspnea, presenting for follow-up after an abnormal nuclear stress test and upcoming cardiac catheterization. Concepcion reports dyspnea on exertion, particularly when ascending stairs or carrying a laundry basket. She notes that after approximately two trips up the stairs, she experiences noticeable changes in her breathing. She has been experiencing these symptoms for some time and has reported them to her healthcare providers. She recently underwent a nuclear stress test, which revealed ST changes. Her ejection fraction was reported as 56%. Based on these findings, her welt treater, Dr. Pereira, has recommended a cardiac catheterization, which is scheduled for Tuesday at 0700. Concepcion expresses some anxiety about the procedure, particularly due to a past traumatic experience with her late 's cardiac surgery. She is aware that the procedure will likely be performed via the wrist rather than the groin and has been informed about the potential need for a stent or other interventions. Concepcion also reports recent changes in her antihypertensive medication, specifically the removal of a diuretic component from her lisinopril. She notes that her blood pressure has been well-controlled since the change. She also mentions an increase in her pulse rate with exertion, such as walking or climbing stairs. In addition to her cardiac issues, Concepcion has a history of sciatica and disc problems, for which she wears a brace and receives health care attorney every 4-5 weeks. She also mentions ongoing responsibilities, such as caring for her granddaughter, which involve physical activity like gardening. Her medications were reviewed today and her list is now up to date. Medications Current Outpatient Medications Medication Sig lisinopril (ZESTRIL) 20 mg tablet Take 20 mg by mouth two times a day. allopurinol (ZYLOPRIM) 100 mg tablet Take 1 tablet by mouth once daily. amLODIPine (NORVASC) 5 mg tablet Take 1 tablet by mouth once daily. calcium carbonate (CALTRATE) 600 mg calcium (1,500 mg) tab Take 1,200 mg by mouth once daily. omeprazole (PRILOSEC) 20 mg capsule Take 1 capsule by mouth two times a day. 1/2 HR BEFORE MEAL. nortriptyline (PAMELOR) 25 mg capsule Take 1 capsule by mouth daily at bedtime. calcitriol (ROCALTROL) 0.25 mcg capsule Take 1 capsule by mouth once daily. lovastatin 40 mg tablet Take 1 tablet [...] THERAPEUTIC MULTIVITAMIN TAB Take one(1) tablet daily. colchicine 0.6 mg tablet Take 1 tablet by mouth once daily. estradiol (ESTRACE) 0.01 [...] [Celecoxib] Rash Grass Pollen scratchy throat Nitrofurantoin [place]* Intolerance Stomach pain Penicillins Hives Sucralfate Rash Generalized red rash; itching back of neck. Saw geophysical support specialist ACTIVE PROBLEM LIST Spinal Stenosis of Lumbar [...] 08/03/2006 Benign Paroxysmal Positional Vertigo - 08/03/2006 (more content not included)... Normal [facility] CNOVon 01-16-2025 CNOV Office Visit (RHWSTR ) CONCEPCION DONALDSON ([id number]) 1940 F Date Time Provider Department 01/16/25 10:30 AM LEXIS ROCA RHWSTR During your visit today, we recorded the following information about you: Pulse Respiration Blood pressure Weight 66/minute 17/minute 117/69 72.9 kg Lexis Roca PA-C 01/16/2025 1:24 PM Signed Rheumatology FOLLOW UP VISIT Date of Service: 01/16/2025 Patient: Concepcion Donaldson Medical Record: [id number] Primary Care Physician: Preston Haney MD Last Rheumatology visit: None at [facility] History of Present Illness Concepcion Donaldson is a 84 year old White female who presents on 01/16/2025 for an in-person visit for evaluation of Follow Up. Concepcion reports a current pain level of 5 (Generalized). She describes the pain as Aching. The pain is Intermittent . Interventions tried include Heat. Concepcion is both RF - 9 (09/20/2024) and CCP - 13.5 (09/20/2024) negative. Her most recent ANNIE was negative (06/17/2015). Concepcion reports worsening joint pain and swelling and limited mobility over the past 3 months despite daily use of Plaquenil. She notes increased sensitivity and a stinging sensation in the left ring finger, particularly when touched or bumped. Additionally, she has developed a new nodule on the R middle finger in the last few days. Pain is described as intermittent, sometimes throbbing, and is primarily in the left ring finger and right middle finger. It is exacerbated by movement and touch but is not always present at rest. She denies shooting pain but describes tenderness when pressure is applied directly to the joints. Concepcion reports significant limitations in hand mobility, including difficulty squeezing a washcloth or dishcloth. She notes that the pain is not the primary issue; rather, it is the loss of mobility that concerns her. She occasionally takes Tylenol for pain and will use ibuprofen for short periods if experiencing a flare-up but prefers to avoid prolonged use. She recalls some temporary 50% relief with prednisone in the past but states that no treatment has significantly reduced the swelling or improved mobility. She denies any improvement since starting Plaquenil and feels that her condition has worsened, with additional lumps and decreased hand mobility. Concepcion has a history of spinal stenosis and minimal intervertebral space, contributing to back pain. She also has a history of a heart murmur and recent abnormal nuclear stress test results showing ST changes. She experiences fatigue, dyspnea on exertion, and ankle swelling. Family history is significant for CAD; her father had an ME, her mother had CHF, and her brother also had an ME. Pain Evaluation 08/19/2024 09/20/2024 11/19/2024 01/10/2025 01/16/2025 Pain Evaluation Pain Score 4 4 6 2 5 5 Location Finger Hand-Right -- Generalized Location Comment bilateral hands Description Aching;Phantom;Stabbing ;Stiffness Aching Aching Aching;Radiating;Stiffn ess Aching Duration (#) 1 4 Duration (Timeframe) Weeks Years Years Minutes Frequency Intermittent Continuous Continuous Intermittent Intermittent Intervention Heat Medication Heat Patient-Entered Data PROMIS Assessments 02/06/2023 07/14/2023 [...] 14 3 Oh Activities of Daily Living 01/10/2025 7:34 AM 09/14/2024 10:29 AM 08/19/2024 3:32 PM Dress self? Without ANY difficulty Without ANY difficulty Without ANY difficulty Get in and out of bed? Without ANY difficulty Without ANY difficulty Without ANY difficulty Walk outdoors? With SOME difficulty With SOME difficulty With SOME difficulty Wash and dry body? Without ANY difficulty Without ANY difficulty Without ANY difficulty Get in and out of car? Without ANY difficulty Without ANY difficulty Without ANY difficulty RAPID 3 Disease Activity Weighed Score Levels: 0 - 1: Near Remission 1.3 - 2.0: Low Severity 2.3 - 4.0: Moderate Severity 4.3 - 10.0: High Severity 08/19/2024 09/14/2024 RAPID-3 Weighed Score RAPID 3 Weighed Score 2.56 (Moderate severity ) 2.56 (Moderate severity ) Review of Systems Review of Systems CONSTITUTION: Negative for: Fever an (more content not included)... Normal [facility] Basic Metabolic Profile (BMP )on 01-14-2025 BUN/CRE 18.1 RATIO Normal 10-20 [facility] Comment on above: Performed By: #### L 500.4050, L100.0100 #### [facility] [address] [place], [address] Calcium [Mass/Vol] 9.5 mg/dL Normal 7.6-11.0 [facility] Comment on above: Performed By: #### L 500.4050, L100.0100 #### [facility] [address] [place], [address] Chloride [Moles/Vol] 93 mmol/L Low 98-108 [facility] Comment on above: Performed By: #### L 500.4050, L100.0100 #### [facility] [address] [place], [address] CO2 [Moles/Vol] 22.7 mmol/L Normal 21.0-32.0 [facility] Comment on above: Performed By: #### L 500.4050, L100.0100 #### [facility] [address] [place], [address] Creatinine [Mass/Vol] 0.91 mg/dL Normal 0.70-1.20 [facility] Comment on above: Performed By: #### L 500.4050, L100.0100 #### [facility] [address] [place], [address] GAP 12 Normal 5-15 [facility] Comment on above: Performed By: #### L 500.4050, L100.0100 #### [facility] [address] [place], [address] GFR/1.73 sq M.predicted among non-blacks MDRD (S/P/Bld) [Vol rate/Area] 62 mL/min/{1.73_m2} Normal >60 [facility] Comment on above: Result Comment: mL/m in/1.73m2 CKD-EPI Creatinine Equation (2020) Performed By: #### L 500.4050, L100.0100 #### [facility] [address] [place], [address] Glucose [Mass/Vol] 99 mg/dL Normal 70-99 [facility] Comment on above: Performed By: #### L 500.4050, L100.0100 #### [facility] [address] [place], [address] Potassium [Moles/Vol] 4.1 mmol/L Normal 3.3-5.1 [facility] Comment on above: Performed By: #### L 500.4050, L100.0100 #### [facility] [address] [place], [address] Sodium [Moles/Vol] 128 mmol/L Low 133-145 [facility] Comment on above: Performed By: #### L 500.4050, L100.0100 #### [facility] [address] [place], [address] Urea nitrogen [Mass/Vol] 17 mg/dL Normal 4-19 [facility] Comment on above: Performed By: #### L 500.4050, L100.0100 #### [facility] [address] [place], [address] CBC W/Diff, Automatedon 07-0 -2024 Absolute Lymph 0.94 X10 3/uL Normal 0.83-4.51 [facility] Comment on above: Performed By: #### L 500.4050, L100.0100 #### [facility] [address] [place], [address] Absolute Neut 3.0 X10 3/uL Normal 2.0-7.7 [facility] Comment on above: Performed By: #### L 500.4050, L100.0100 #### [facility] [address] [place], [address] Basophils/100 WBC (Bld) 0.8 % Normal 0-1 [facility] Comment on above: Performed By: #### L 500.4050, L100.0100 #### [facility] [address] [place], [address] Eosinophils/100 WBC (Bld) 4.9 % Normal 0-5 [facility] Comment on above: Performed By: #### L 500.4050, L100.0100 #### [facility] [address] [place], [address] Erythrocyte distribution width (RBC) [Ratio] 13.5 % Normal 11.6-14.6 [facility] Comment on above: Performed By: #### L 500.4050, L100.0100 #### [facility] [address] [place], [address] Hematocrit (Bld) [Volume fraction] 38.1 % Normal 37-47 [facility] Comment on above: Performed By: #### L 500.4050, L100.0100 #### [facility] [address] [place], [address] Hemoglobin (Bld) [Mass/Vol] 13.1 g/dL Normal 12.0-15.0 [facility] Comment on above: Performed By: #### L 500.4050, L100.0100 #### [facility] [address] [place], [address] IG% 1.000 High 0.0-0.9 [facility] Comment on above: Result Comment: IG% - Immature Granulocytes (promyelocytes, myelocytes and metamyelocytes) > 1% indicates that a LEFT SHIFT is Present. Performed By: #### L 500.4050, L100.0100 #### [facility] [address] [place], [address] Lymphocytes/100 WBC (Bld) 19.3 % Normal 19-41 [facility] Comment on above: Performed By: #### L 500.4050, L100.0100 #### [facility] [address] [place], [address] MCH (RBC) [Entitic mass] 29.2 pg Normal 27.0-32.0 [facility] Comment on above: Performed By: #### L 500.4050, L100.0100 #### [facility] [address] [place], [address] MCHC (RBC) [Mass/Vol] 34.4 g/dL Normal 32-36 [facility] Comment on above: Performed By: #### L 500.4050, L100.0100 #### [facility] [address] [place], [address] MCV (RBC) [Entitic vol] 85.0 fL Normal 81-99 [facility] Comment on above: Performed By: #### L 500.4050, L100.0100 #### [facility] [address] [place], [address] Monocytes/100 WBC (Bld) 12.7 % High 0-10 [facility] Comment on above: Performed By: #### L 500.4050, L100.0100 #### [facility] [address] [place], [address] Neutrophils/100 WBC (Bld) 61.3 % Normal 47-70 [facility] Comment on above: Performed By: #### L 500.4050, L100.0100 #### [facility] [address] [place], [address] Nucleated RBC (Bld) [#/Vol] 0 10*3/uL Normal 0-5 [facility] Comment on above: Performed By: #### L 500.4050, L100.0100 #### [facility] [address] [place], [address] Platelet mean volume (Bld) [Entitic vol] 10.7 fL Normal 6.2-12.0 [facility] Comment on above: Performed By: #### L 500.4050, L100.0100 #### [facility] [address] [place], [address] Platelets (Bld) [#/Vol] 166 10*3/uL Normal 150-450 [facility] Comment on above: Performed By: #### L 500.4050, L100.0100 #### [facility] [address] [place], [address] RBC (Bld) [#/Vol] 4.48 10*6/uL Normal 4.2-5.4 [facility] Comment on above: Performed By: #### L 500.4050, L100.0100 #### [facility] [address] [place], [address] RDW SD 42.2 fl Normal 35.1-43.9 [facility] Comment on above: Performed By: #### L 500.4050, L100.0100 #### [facility] [address] [place], [address] WBC (Bld) [#/Vol] 4.9 10*3/uL Normal 4.4-11.0 [facility] Comment on above: Performed By: #### L 500.4050, L100.0100 #### [facility] [address] [place], [address] Chest PA and Lateralon 01-14 Chest PA and Lateral [facility] Services [address] [place] [address] Chest PA and Lateral MR#: [id number] Acct: [id number] Name: CONCEPCION DONALDSON Rep #: [id number] : 1940 F 84 From: Ada Thorne PCP: Dr. Preston Haney MD Status: PRE [facility] Study: Chest PA and Lateral Date of Exam: 01/14/25 Exam# [id number] Ordering Dr: Hubert Pereira MD PROCEDURE: CHEST PA AND LATERAL 01/14/2025 REASON FOR EXAM: SOB TECHNIQUE: CHEST PA AND LATERAL COMPARISON: None FINDINGS: Hardware: None Heart: The heart size is normal. Arteriosclerotic vascular disease of the aorta is noted. Mediastinum: The mediastinal contour is unremarkable. Lungs: There is a linear density identified in the left costophrenic angle which may represent either atelectasis or parenchymal scarring. Remaining lung dove are clear. There are no consolidative processes, pleural effusions, pneumothoraces or pneumonic infiltrates. Bones: Diffuse osteopenia of the bony thorax is noted. There is a subtle dextroscoliosis of the thoracic spine. Mild degenerative changes of the thoracic spine are noted.Mild arthritic changes are seen involving the acromioclavicular joints bilaterally. RAD/Chest PA and Lateral IMPRESSION: The linear density in the left lung base could represent either atelectasis or parenchymal scarring. Diffuse osteopenia of the bony thorax is seen. There is a subtle dextroscoliosis and degenerative changes of the thoracic spine. Mild degenerative changes of the acromioclavicular joints are noted bilaterally. Reading Location: [facility] CC: Dr. Hubert Pereira MD; Dr. Preston Haney MD Board Writer: Signed Normal [facility] 25([place])D3 [facility] 2024 25-hydroxyvitamin D3 [Mass/Vol] 78.2 ng/mL Normal 31.0-80.0 [facility] Comment on above: Order Comment: Speci men Type: BLOOD SPECIMEN Ordering Facility: [facility] Address: [address] [place] [address] Result Comment: Clas sification of 25 [place] Vitamin D status: Deficiency/Insufficiency: < or = 30 ng/ml. Sufficiency/Optimal Levels: 31-80 ng/mL Toxicity: > 100 ng/mL. Test performed by chemiluminescent immunoassay. Performed By: #### 5 1775-5, 83755-1, 42501-5, 98134-0, 86949-9, 29421-3, 37799-3, 50490-3 #### [facility] CLIA [id number] [address] [place] [address] [place] CBC panel Auto (Bld)on 01-09 Erythrocyte distribution width (RBC) [Ratio] 13.5 % Normal 11.5-15.0 [facility] Comment on above: Order Comment: Speci men Type: BLOOD SPECIMEN Ordering Facility: [facility] Address: [address] [place] [address] Performed By: #### 5 1775-5, 52928-1, 24947-9, 94186-8, 61513-9, 75854-2, 35838-0, 83127-9 #### [facility] CLIA [id number] [address] [place] [address] [place] Hematocrit (Bld) [Volume fraction] 41.8 % Normal 36.0-46.0 [facility] Comment on above: Order Comment: Speci men Type: BLOOD SPECIMEN Ordering Facility: [facility] Address: [address] [place] [address] Performed By: #### 5 1775-5, 80313-9, 79521-2, 32763-1, 93401-7, 63013-2, 90448-2, 45010-9 #### [facility] CLIA [id number] [address] [place], [place] [id number] [place] Hemoglobin (Bld) [Mass/Vol] 14.4 g/dL Normal 11.5-15.5 [facility] Comment on above: Order Comment: Speci men Type: BLOOD SPECIMEN Ordering Facility: [facility] Address: [address] [place] [address] Performed By: #### 5 1775-5, 20813-2, 38600-2, 36614-7, 07383-6, 55847-0, 16085-3, 65715-2 #### [facility] CLIA [id number] [address] [place] [address] [place] MCH (RBC) [Entitic mass] 29.1 pg Normal 26.0-34.0 [facility] Comment on above: Order Comment: Speci men Type: BLOOD SPECIMEN Ordering Facility: [facility] Address: [address] [place] [address] Performed By: #### 5 1774-5, 81453-4, 40517-2, 91076-4, 87159-0, 31127-9, 67379-7, 74805-8 #### [facility] CLIA [id number] [address] [place] [address] [place] MCHC (RBC) [Mass/Vol] 34.4 g/dL Normal 30.5-36.0 [facility] Comment on above: Order Comment: Speci men Type: BLOOD SPECIMEN Ordering Facility: [facility] Address: [address] [place] [address] Performed By: #### 5 1774-5, 82659-6, 51723-1, 55848-5, 28277-3, 74764-7, 94176-1, 95830-9 #### [facility] CLIA [id number] [address] [place] [address] [place] MCV (RBC) [Entitic vol] 84.6 fL Normal 80.0-100.0 [facility] Comment on above: Order Comment: Speci men Type: BLOOD SPECIMEN Ordering Facility: [facility] Address: [address] [place] [address] Performed By: #### 5 1775-5, 95630-4, 17097-8, 39152-5, 77458-8, 56987-5, 55260-5, 42772-7 #### [facility] CLIA [id number] [address] [place], [place] [id number] [place] Nucleated RBC (Bld) [#/Vol] 10*3/uL Normal <0.01 [facility] Comment on above: Order Comment: Speci men Type: BLOOD SPECIMEN Ordering Facility: [facility] Address: [address] [place] [address] Performed By: #### 5 1775-5, 68420-7, 10243-0, 84689-2, 85183-6, 99918-8, 83025-9, 32166-2 #### [facility] CLIA [id number] [address] [place] [address] [place] Platelet mean volume (Bld) [Entitic vol] 10.5 fL Normal 9.0-12.7 [facility] Comment on above: Order Comment: Speci men Type: BLOOD SPECIMEN Ordering Facility: [facility] Address: [address] [place] [address] Performed By: #### 5 1775-5, 63476-2, 26597-3, 30431-2, 42500-1, 25012-7, 94300-7, 85384-4 #### [facility] CLIA [id number] [address] [place] [address] [place] Platelets (Bld) [#/Vol] 176 10*3/uL Normal 150-400 [facility] Comment on above: Order Comment: Speci men Type: BLOOD SPECIMEN Ordering Facility: [facility] Address: [address] [place] [address] Performed By: #### 5 1775-5, 01804-3, 41260-8, 80501-0, 32941-6, 12602-3, 70897-2, 94512-2 #### [facility] CLIA [id number] [address] [place], [place] [address] [place] RBC (Bld) [#/Vol] 4.94 10*6/uL Normal 3.90-5.20 [facility] Comment on above: Order Comment: Speci men Type: BLOOD SPECIMEN Ordering Facility: [facility] Address: [address] [place] [address] Performed By: #### 5 1775-5, 48469-1, 74487-5, 05688-6, 52436-8, 25977-8, 37794-0, 05675-0 #### [facility] CLIA [id number] [address] [place] [address] [place] WBC (Bld) [#/Vol] 4.21 10*3/uL Normal 3.70-11.00 [facility] Comment on above: Order Comment: Speci men Type: BLOOD SPECIMEN Ordering Facility: [facility] Address: [address] [place] [address] Performed By: #### 5 1775-5, 96788-5, 51680-0, 21932-7, 98335-5, 20699-3, 45666-6, 61551-8 #### [facility] CLIA [id number] [address] [place] [address] [place] Comprehensive metabolic 2000 panelon 01-09-2025 Albumin [Mass/Vol] 4.7 g/dL Normal 3.9-4.9 [facility] Comment on above: Order Comment: Speci men Type: BLOOD SPECIMEN Ordering Facility: [facility] Address: [address] [place] [address] Performed By: #### 5 1775-5, 65568-3, 47776-0, 37725-0, 98079-5, 44788-3, 02769-9, 58838-3 #### [facility] CLIA [id number] [address] [place] [address] [place] ALP [Catalytic activity/Vol] 44 U/L Normal 34-123 [facility] Comment on above: Order Comment: Speci men Type: BLOOD SPECIMEN Ordering Facility: [facility] Address: [address] [place] [address] Performed By: #### 5 1775-5, 19243-4, 80413-8, 38605-9, 53134-6, 77462-4, 46756-2, 91231-5 #### [facility] CLIA [id number] [address] [place] [address] [place] ALT [Catalytic activity/Vol] 15 U/L Normal 7-38 [facility] Comment on above: Order Comment: Speci men Type: BLOOD SPECIMEN Ordering Facility: [facility] Address: [address] [place] [address] Performed By: #### 5 1775-5, 85023-7, 43618-4, 77256-5, 12149-6, 44861-7, 31173-1, 09974-2 #### [facility] CLIA [id number] [address] [place] [address] [place] Anion gap [Moles/Vol] 14 mmol/L Normal 8-15 [facility] Comment on above: Order Comment: Speci men Type: BLOOD SPECIMEN Ordering Facility: [facility] Address: [address] [place] [address] Performed By: #### 5 1775-5, 87471-6, 21625-1, 71682-9, 98904-1, 55344-0, 50687-5, 30975-3 #### [facility] CLIA [id number] [address] [place] [address] [place] AST [Catalytic activity/Vol] 25 U/L Normal 13-35 [facility] Comment on above: Order Comment: Speci men Type: BLOOD SPECIMEN Ordering Facility: [facility] Address: [address] [place] [address] Performed By: #### 5 1775-5, 45451-6, 22220-2, 39388-8, 28815-7, 91801-4, 48494-9, 38278-6 #### [facility] CLIA [id number] [address] [place], [place] [address] [place] Bilirubin [Mass/Vol] 0.5 mg/dL Normal 0.2-1.3 [facility] Comment on above: Order Comment: Speci men Type: BLOOD SPECIMEN Ordering Facility: [facility] Address: [address] [place] [address] Performed By: #### 5 1775-5, 91175-1, 35264-8, 82098-3, 47632-9, 48929-1, 50208-5, 56682-8 #### [facility] CLIA [id number] [address] [place] [address] [place] Calcium [Mass/Vol] 10.3 mg/dL High 8.5-10.2 [facility] Comment on above: Order Comment: Speci men Type: BLOOD SPECIMEN Ordering Facility: [facility] Address: [address] [place] [address] Performed By: #### 5 1775-5, 51718-9, 82517-9, 87285-4, 47504-7, 68714-5, 34927-2, 41693-6 #### [facility] CLIA [id number] [address] [place] [address] [place] Chloride [Moles/Vol] 94 mmol/L Low 98-107 [facility] Comment on above: Order Comment: Speci men Type: BLOOD SPECIMEN Ordering Facility: [facility] Address: [address] [place] [address] Performed By: #### 5 1775-5, 35329-3, 76349-2, 67728-5, 45657-0, 37235-1, 95546-3, 36970-2 #### [facility] CLIA [id number] [address] [place] [address] [place] CO2 [Moles/Vol] 25 mmol/L Normal 22-30 [facility] Comment on above: Order Comment: Speci men Type: BLOOD SPECIMEN Ordering Facility: [facility] Address: [address] [place] [address] Performed By: #### 5 1775-5, 00669-6, 81988-8, 64772-8, 79533-8, 08378-3, 73763-8, 81365-7 #### [facility] CLIA [id number] [address] [place] [address] [place] Creatinine [Mass/Vol] 0.83 mg/dL Normal 0.58-0.96 [facility] Comment on above: Order Comment: Speci men Type: BLOOD SPECIMEN Ordering Facility: [facility] Address: [address] [place] [address] Performed By: #### 5 1775-5, 46467-9, 69716-5, 05902-1, 07758-0, 90043-5, 68666-2, 77215-8 #### [facility] CLIA [id number] [address] [place] [address] [place] Creatinine and Glomerular filtration rate.predicted panel (S/P/Bld) 70 mL/min/1.73m??? Normal >=60 [facility] Comment on above: Order Comment: Speci teena Type: BLOOD SPECIMEN Ordering Facility: [facility] Address: [address] [place] [address] Result Comment: Sravanthi mated Glomerular Filtration Rate [...] accurately reflect actual GFR. Performed By: #### 5 1775-5, 33210-9, 56266-2, 60540-5, 19371-9, 39539-3, 29911-2, 20123-2 #### [facility] CLIA [id number] [address] [place] [address] [place] Glucose [Mass/Vol] 91 mg/dL Normal 74-99 [facility] Comment on above: Order Comment: Kristofer dickinson Type: BLOOD SPECIMEN Ordering Facility: [facility] Address: [address] [place] [address] Result Comment: The [place] Diabetes Association (ADA) provides guidance for cutoff [...] Standards of Medical Care in Diabetes 2016, [place] [employer] Association. Diabetes Care. 2016.39(Suppl 1). Performed By: #### 5 1775-5, 63105-3, 13065-3, 73357-9, 94125-9, 37461-4, 23780-9, 45677-4 #### [facility] CLIA [id number] [address] [place] [address] [place] Potassium [Moles/Vol] 4.0 mmol/L Normal 3.7-5.1 [facility] Comment on above: Order Comment: Kristofer dickinson Type: BLOOD SPECIMEN Ordering Facility: [facility] Address: [address] [place] [address] Performed By: #### 5 1775-5, 33047-5, 91959-3, 87852-5, 08521-4, 36001-2, 64642-2, 37159-7 #### [facility] CLIA [id number] [address] [place] [address] [place] Protein [Mass/Vol] 7.4 g/dL Normal 6.3-8.0 [facility] Comment on above: Order Comment: Speci men Type: BLOOD SPECIMEN Ordering Facility: [facility] Address: [address] [place] [address] Performed By: #### 5 1775-5, 45903-3, 03014-2, 14728-6, 80074-2, 62177-9, 79462-6, 09282-8 #### [facility] CLIA [id number] [address] [place] [address] [place] Sodium [Moles/Vol] 133 mmol/L Low 136-144 [facility] Comment on above: Order Comment: Speci men Type: BLOOD SPECIMEN Ordering Facility: [facility] Address: [address] [place] [address] Performed By: #### 5 1775-5, 90297-7, 66445-5, 16453-9, 94986-2, 71086-2, 66312-4, 03263-2 #### [facility] CLIA [id number] [address] [place] [address] [place] Urea nitrogen [Mass/Vol] 15 mg/dL Normal 7-21 [facility] Comment on above: Order Comment: Speci men Type: BLOOD SPECIMEN Ordering Facility: [facility] Address: [address] [place] [address] Performed By: #### 5 1775-5, 16533-5, 17000-4, 53885-4, 39961-4, 62235-0, 77689-3, 07707-0 #### [facility] CLIA [id number] [address] [place] [address] [place] HbA1c (Bld)on 01-09-2025 Average glucose Estimated from glycated hemoglobin (Bld) [Mass/Vol] 108 mg/dL Normal [facility] Comment on above: Order Comment: Speci men Type: BLOOD SPECIMEN Ordering Facility: [facility] Address: [address] [place] [address] Result Comment: eAG: (Estimated average glucose) is a calculated value from HgbA1c and is sales representative consultant of the average blood glucose level in the last 2-3 month period. Performed By: #### 5 1775-5, 87717-2, 35656-6, 40864-2, 62856-7, 21647-8, 70970-7, 99744-8 #### [facility] CLIA [id number] [address] [place] [address] [place] HbA1c (Bld) [Mass fraction] 5.4 % Normal 4.3-5.6 [facility] Comment on above: Order Comment: Kristofer dickinson Type: BLOOD SPECIMEN Ordering Facility: [facility] Address: [address] [place] [address] Result Comment: [place] Diabetes Association guidelines indicate that patients with HgbA1c in the range 5.7-6.4% are at increased risk for development of diabetes, and intervention by lifestyle modification may be beneficial. HgbA1c greater or equal to 6.5% is considered diagnostic of diabetes. Performed By: #### 5 1775-5, 17945-8, 13088-2, 17931-8, 63665-2, 46973-0, 20306-7, 01932-3 #### [facility] CLIA [id number] [address] [place] [address] [place] Lipid 1996 panelon 5 Cholesterol [Mass/Vol] 172 mg/dL Normal <200 [facility] Comment on above: Order Comment: Kristofer dickinson Type: BLOOD SPECIMEN Ordering Facility: [facility] Address: [address] [place] [address] Result Comment: <200 mg/dL, Desirable 200-239 mg/dL, Borderline high >239 mg/dL, High Performed By: #### 5 1775-5, 61124-6, 45701-7, 56931-2, 13390-5, 97365-7, 03792-4, 67951-5 #### [facility] CLIA [id number] [address] [place], [place] [address] [place] Cholesterol in HDL [Mass/Vol] 66 mg/dL Normal >39 [facility] Comment on above: Order Comment: Speci men Type: BLOOD SPECIMEN Ordering Facility: [facility] Address: [address] [place] [address] Result Comment: 40-5 9 mg/dL, Acceptable >59 mg/dL, High: Negative risk factor for coronary heart disease <40 mg/dL, Low: Positive risk factor for coronary heart disease Performed By: #### 5 1775-5, 83568-1, 01736-5, 47710-8, 64945-5, 67869-8, 31431-6, 35875-3 #### [facility] CLIA [id number] [address] [place] [address] [place] Cholesterol in LDL [Mass/Vol] 74 mg/dL Normal <100 [facility] Comment on above: Order Comment: Jenniferifrah dickinson Type: BLOOD SPECIMEN Ordering Facility: [facility] Address: [address] [place] [address] Result Comment: <100 mg/dL, Optimal 100-129 mg/dL, Near optimal/above optimal 130-159 mg/dL, Borderline high 160-189 mg/dL, High >189 mg/dL, Very high Secondary prevention optimal LDL Cholesterol levels are recommended to be <70 mg/dL LDL cholesterol is calculated using the Guaman-NIH equation. Performed By: #### 5 1775-5, 15144-6, 36332-2, 07542-7, 98839-4, 04493-4, 08649-2, 97078-4 #### [facility] CLIA [id number] [address] [place] [address] [place] Cholesterol in LDL/Cholesterol in HDL [Mass ratio] 1.12 {ratio} Normal <2.54 [facility] Comment on above: Order Comment: Kristofer dickinson Type: BLOOD SPECIMEN Ordering Facility: [facility] Address: [address] [place] [address] Result Comment: Luis valencia: 1. National Cholesterol Education Program ATP III Guideline At-A-Glance Quick Desk Reference: National Heart, Lung, and Blood [place]. National Institutes of Health. 2001: NIH Publication No. 01-3305. 2. An International Atherosclerosis Society position paper: global recommendations for the management of dyslipidemia: executive summary, Atherosclerosis. 2014: 232(2):410-413. Performed By: #### 5 1775-5, 29397-6, 62374-9, 06949-5, 09960-6, 40937-8, 59397-4, 33871-0 #### [facility] CLIA [id number] [address] [place] [address] [place] Cholesterol in VLDL [Mass/Vol] 30 mg/dL High <30 [facility] Comment on above: Order Comment: Kristofer dickinson Type: BLOOD SPECIMEN Ordering Facility: [facility] Address: [address] [place] [address] Performed By: #### 5 1775-5, 05155-8, 68161-8, 24059-9, 00854-5, 94379-5, 74243-1, 62825-7 #### [facility] CLIA [id number] [address] [place] [address] [place] Cholesterol non HDL [Mass/Vol] 106 mg/dL Normal <130 [facility] Comment on above: Order Comment: Kristofer dickinson Type: BLOOD SPECIMEN Ordering Facility: [facility] Address: [address] [place] [address] Result Comment: <130 mg/dL, Optimal 130-159 mg/dL, Near optimal/above optimal 160-189 mg/dL, Borderline high 190-219 mg/dL, High >219 mg/dL, Very high Secondary prevention optimal non HDL Cholesterol levels are recommended to be <100 mg/dL Performed By: #### 5 1775-5, 99384-9, 00725-9, 43516-5, 11505-0, 30496-9, 96810-8, 09111-4 #### [facility] CLIA [id number] [address] [place], [place] [address] [place] Cholesterol.total/Cho lesterol in HDL [Mass ratio] 2.61 {ratio} Normal <5.10 [facility] Comment on above: Order Comment: Speci men Type: BLOOD SPECIMEN Ordering Facility: [facility] Address: [address] [place] [address] Performed By: #### 5 1775-5, 13560-4, 70067-6, 27568-4, 29587-7, 74455-9, 06856-0, 96252-7 #### [facility] CLIA [id number] [address] [place], [place] [address] [place] FASTING TIME 12 hrs Normal [facility] Comment on above: Order Comment: Speci men Type: BLOOD SPECIMEN Ordering Facility: [facility] Address: [address] [place] [address] Performed By: #### 5 1775-5, 25382-7, 32697-8, 02849-4, 78728-1, 90001-1, 75490-6, 87087-1 #### [facility] CLIA [id number] [address] [place] [address] [place] Triglyceride [Mass/Vol] 197 mg/dL High <150 [facility] Comment on above: Order Comment: Speci men Type: BLOOD SPECIMEN Ordering Facility: [facility] Address: [address] [place] [address] Result Comment: <150 mg/dL, Normal 150-199 mg/dL, Borderline high 200-499 mg/dL, High >499 mg/dL, Very high Performed By: #### 5 1775-5, 98293-8, 82995-1, 22186-8, 42412-0, 52109-1, 62322-6, 58247-0 #### [facility] CLIA [id number] [address] [place] [address] [place] Cardiovascular stress test r eportOrdered By: Hubert Pereira on 01-03-2025 Study report [facility] [address] [place] [address] MR#: [id number] Acct: [id number] Name: CONCEPCION DONALDSON Rep #: [id number] : 1940 84 From: Hubert Pereira MD Primary Care: Dr. Preston Haney MD [facility] tus: REG CLI Referring Dr: Hubert Pereira MD Sex: F C Stress Test Report Pharmacologic myocardial perfusion stress test. 84-year-old lady with a history of dyspnea Resting EKG demonstrates sinus rhythm with a rate of 71 bpm. Resting blood pressure is 152/80 mmHg. 0.4 mg of regadenoson was infused per usual protocol followed by rapid intravenous saline flush injection. Continuous EKG monitoringwas performed. The maximum heart rate was 85 bpm which was 62% of max impacted heart rate the maximum workload was 1 metabolic equivalent. At rest there were no ST or T wave changes noted to suggest ischemia and at peak infusion nonspecific ST changes were noted which did not meet the criteria for ischemia. No clinical angina is noted. The final blood pressure was 128/74 mmHg. Myocardial perfusion protocol. 10.9 mCi of technetium 99m sestamibi was injected at rest. 0.4 mg of regadenoson was infused per usual protocol. At peak infusion 32.8 mCi of technetium 99m sestamibi was injected stress images were obtained stress and rest images were reconstructed and compared in the short axis vertical long and horizontal long axis. Gated images were also obtained. Perfusion SPECT analysis: Review of the stress images demonstrate normal uptake of tracer noted in all areas of the myocardium. There is a small area in the anteroseptal wall with reduced perfusion. The resting images similar demonstrated normal uptake of tracer noted with mild improvement in the septum and a small amount of septal ischemia cannot be completely excluded. Gated SPECT analysis: The gated ejection fraction is 79%. Conclusion: Mildly abnormal pharmacologic myocardial perfusion stress test. Mild septal ischemia Preserved ejection fraction. 01/03/251517 Date _ Hubert Pereira MD CC: Dr. Hubert Pereira MD; Dr. Preston Haney MD ~ Date Dictated: 01/03/251515 Date Transcribed: 01/03/251515 Board Writer: [place] Signed [facility] Work Phone: Stress Reporton 01-03-2025 Stress Report [facility] [address] [place] [address] MR#: [id number] Acct: [id number] Name: CONCEPCION DONALDSON Rep #: [id number] : 1940 84 From: Hubert Pereira MD Primary Care: Dr. Preston Haney MD Status: REG CLI Referring Dr: Hubert Pereira MD Sex: F C Stress Test Report Pharmacologic myocardial perfusion stress test. 84-year-old lady with a history of dyspnea Resting EKG demonstrates sinus rhythm with a rate of 71 bpm. Resting blood pressure is 152/80 mmHg. 0.4 mg of regadenoson was infused per usual protocol followed by rapid intravenous saline flush injection. Continuous EKG monitoring was performed. The maximum heart rate was 85 bpm which was 62% of max impacted heart rate the maximum workload was 1 metabolic equivalent. At rest there were no ST or T wave changes noted to suggest ischemia and at peak infusion nonspecific ST changes were noted which did not meet the criteria for ischemia. No clinical angina is noted. The final blood pressure was 128/74 mmHg. Myocardial perfusion protocol. 10.9 mCi of technetium 99m sestamibi was injected at rest. 0.4 mg of regadenoson was infused per usual protocol. At peak infusion 32.8 mCi of technetium 99m sestamibi was injected stress images w ere obtained stress and rest images were reconstructed and compared in the short axis vertical long and horizontal long axis. Gated images were also obtained. Perfusion SPECT analysis: Review of the stress images demonstrate normal uptake of tracer noted in all areas of the myocardium. There is a small area in the anteroseptal wall with reduced perfusion. The resting images similar demonstrated normal uptake of tracer noted with mild improvement in the septum and a small amount of septal ischemia cannot be completely excluded. Gated SPECT analysis: The gated ejection fraction is 79%. Conclusion: Mildly abnormal pharmacologic myocardial perfusion stress test. Mild septal ischemia Preserved ejection fraction. 01/03/25 1518 Date Hubert Pereira MD CC: Dr. Hubert Pereira MD; Dr. Preston Haney MD Date Dictated: 01/03/251515 Date Transcribed: 01/03/251515 Board Writer: [place] Signed Normal [facility] OCT MACULA CIRRUS OU (BOTH E YES)on 11-26-2024 [facility] Radiology Study observation (narrative) [facility] VISUAL FIELD 10-2 OU (BOTH E YES)on 11-26-2024 [facility] Radiology Study observation (narrative) [facility] CNOVon 11-19-2024 CNOV Office Visit (ORTHWS ) CONCEPCION DONALDSON ([id number]) 1940 F Date Time Provider Department 11/19/24 1:30 PM JV BROOKS During your visit today, we recorded the following information about you: Jv Brooks MD 12/11/2024 12:10 AM Signed Jv Brooks MD Department of Orthopaedics Orthopaedics [address] [facility] [address] Dept: [phone] Dept November 19, 2024 CHIEF COMPLAINT: New [...] Date PRAKASH PH PLACEMENT W/O ENDOSCOPY 09/03/2008 [facility] [address]. Cabello CHOLECYSTECTOMY 1981 COLONOSCOPY FLX DX W/COLLJ SPEC WHEN PFRMD 05/17/2002 Colonoscopy COLONOSCOPY FLX DX W/COLLJ SPEC WHEN PFRMD 07/18/2016 Colonoscopy COLONOSCOPY W/BIOPSY SINGLE/MULTIPLE 07/14/2010 DILATION AND CURETTAGE DXAND/THER NONOBSTETRIC 03/21/2001 Dilation AND curettage attempte (more content not included)... Normal [facility] 12 Lead EKG performed by [facility] on 11-14-2024 12 Lead EKG performed by [facility] [address] [place] [address] 12 Lead EKG performed by [facility] 11/14/24 1131 MR#: [id number] Acct: [id number] Name: CONCEPCION DONALDSON Rep #: [id number] : 1940 83 From: Hubert Pereira MD Attending Dr: Dr. Hubert Pereira MD Status: DEP A MB Ordering Dr: Hubert Pereira MD Date: 11/14/24 [place] [facility] Sex: F C Admitted: BMS/12 Lead EKG performed by [facility] ECG Report Interpretation ---Sinus Rhythm -Left axis -anterior fascicular block. Voltage criteria for LVH (R(aVL) exceeds 1.26 mV) -Nonspecific QRS widening. -Old anterior infarct. ABNORMAL Electronically signed on 11/20/2024 at 08:18 by Hubert Pereira [employer] Version 8610 11/20/24 08 Date Hubert Pereira MD CC: Dr. Preston Haney MD Date Dictated: 11/14/241130 Date Transcribed: 11/14/241130 Board Writer: [place] Signed Normal [facility] Cardiology Visit Reporton Cardiology Visit Report [facility] [address] [place] [address] OFFICE VISIT Date of Service: 11/14/24 MR#: [id number] Acct: [id number] Name: CONCEPCION DONALDSON Rep #: [id number] : 1940 Provider: Dr. Hubert Pereira MD Age/Sex: 83/F Location: [facility] [place] Status: Signed HPI HPI History of [...] Source Monitor Intake Visit Reasons: RE-EST (SELF) Resin Filterer Required: No Accompanied by: Daughter Is patient [...] you fallen in the past year?: Yes PFSH Medical History Arthritis Asymmetric hypertrophy of ventricular [...] of bunionectomy (more content not included)... Normal [facility] ECHOon 10-16-2024 Echocardiography Echocardiography Report: Transthoracic Echo [facility] Date of service: 10/16/2024 11:01:09 AM COORDINATOR Ordering physician: BYRON SUTTON Indication: Shortness of Breath Technologist: Lucille Pineda [facility] Interpreting physician: Leonora Valentin MD PATIENT: [...] * * * Final * * * [facility] : [id number] ISUID Normal [facility] CNOVon 10-11-2024 CNOV Office Visit (RHWSTR ) CONCEPCION DONALDSON ([id number]) 1940 F Date Time Provider Department 10/11/24 9:00 AM LEXIS ROCA WSTR During your visit today, we recorded the following information about you: Pulse Blood pressure Weight 70/minute 152/74 72.1 kg Lexis Roca PA-C 10/11/2024 6:02 PM Signed Rheumatology FOLLOW UP VISIT Date of Service: 10/11/2024 Patient: Concepcion Donaldson Medical Record: [id number] Primary Care Physician: Preston Haney MD Last Rheumatology visit: None at [facility] History of Present Illness Concepcion Donaldson is [...] mouth RESPI (more content not included)... Normal [facility] Matthew 10-09-2024 CNPN Telephone (4CQ) CONCEPCION DONALDSON ([id number]) 1940 F Date Time Provider Department 10/09/24 LEXIS ROCA 4CQ During your visit today, we recorded the following information about you: Shi Nunn 10/09/2024 8:18 AM Signed Patient was schedule for CT Scan today at 1:20 PM however the hazardous waste technician saw it was ordered with [employer]. Those scans can only be done at [place], [place], or [facility]. I contacted patient to reschedule to one of those locations and patient is unwilling to travel that far. Please advise. Shi Nunn, Lexis Barrera PA-C 10/10/2024 8:19 AM Signed We can discuss options at our appointment tomorrow. WILLEM Espinoza Danelle, RN 10/10/2024 11:25 AM Signed Checked with [facility] and they are unable to do dual [...] red rash; itching back of neck. Saw geophysical support specialist Date Reviewed: 10/02/2024 Reviewed by: Byron Sutton APRN.SUPERVISOR [employer] - Fully Assessed Prescriptions as of 10/10/2024 [...] Encounter Status:Closed by GENESIS ZUÑIGA on 10/10/24 [facility] CNOVon 10-02-2024 CNOV Office Visit (INTMWS ) MENDOZACONCEPCION A ([id number]) 1940 F Date Time Provider Department 10/02/24 9:00 AM BYRON SUTTON INTMWS During your visit today, we recorded the following information about you: Pulse Respiration Blood pressure Weight 80/minute 16/minute 122/66 72.2 kg Byron Sutton APRN.SUPERVISOR [employer] 10/02/2024 9:54 AM Signed SUBJECTIVE Concepcion Donaldson is a [...] pain or chest tightness. Prior ECHO in 2019, no valve issues, EF 60%, mild upper septal left ventricle hypertrophy. Normal stress test in 2019. Sees Dr. Pereira with [facility] heart group as needed. Seeing rheumatology, recent [...] [Celecoxib] Rash Grass Pollen scratchy throat Nitrofurantoin [place]* Intolerance Stomach pain Penicillins Hives Sucralfate Rash Generalized red rash; itching back of neck. Saw geophysical support specialist ACTIVE PROBLEM LIST Spinal Stenosis of Lumbar [...] Normal appear (more content not included)... Normal [facility] URIC ACIDOrdered By: Erica azar on 09-21-2024 Urate [Mass/Vol] 7.1 mg/dL High 2.5 - 6.6 mg/dL [facility] Urate [Mass/Vol]Ordered By: Erica Monreal on 09-21-2024 Interpretation and review of laboratory results Abnormal [facility] CBC W Auto Differential pane l (Bld)on 09-20-2024 Basophils (Bld) [#/Vol] 0.05 10*3/uL [facility] Basophils/100 WBC (Bld) 0.9 % [facility] Differential cell count method Nom (Bld) Auto [facility] Eosinophils (Bld) [#/Vol] 0.23 10*3/uL [facility] Eosinophils/100 WBC (Bld) 3.9 % [facility] Erythrocyte distribution width (RBC) [Ratio] 12.8 % 11.5 - 15.0 % [facility] Hematocrit (Bld) [Volume fraction] 43.5 % 36.0 - 46.0 % [facility] Hemoglobin (Bld) [Mass/Vol] 14.9 g/dL 11.5 - 15.5 g/dL [facility] Immature granulocytes (Bld) [#/Vol] 0.03 10*3/uL [facility] Immature granulocytes/100 WBC (Bld) 0.5 % [facility] Interpretation and review of laboratory results Abnormal [facility] Lymphocytes (Bld) [#/Vol] 0.92 10*3/uL Low [facility] Lymphocytes/100 WBC (Bld) 15.8 % [facility] MCH (RBC) [Entitic mass] 29.1 pg 26.0 - 34.0 pg [facility] MCHC (RBC) [Mass/Vol] 34.3 g/dL 30.5 - 36.0 g/dL [facility] MCV (RBC) [Entitic vol] 85 fL 80.0 - 100.0 fL [facility] Monocytes (Bld) [#/Vol] 0.84 10*3/uL [facility] Monocytes/100 WBC (Bld) 14.4 % [facility] Neutrophils (Bld) [#/Vol] 3.77 10*3/uL [facility] Neutrophils/100 WBC (Bld) 64.5 % [facility] Nucleated RBC (Bld) [#/Vol] NINF [facility] Nucleated RBC/100 WBC (Bld) [Ratio] 0 % /100 WBC [facility] Platelet mean volume (Bld) [Entitic vol] 10.6 fL 9.0 - 12.7 fL [facility] Platelets (Bld) [#/Vol] 168 10*3/uL [facility] RBC (Bld) [#/Vol] 5.12 10*6/uL 3.90 - 5.2 0 m/uL [facility] WBC (Bld) [#/Vol] 5.84 10*3/uL [facility] Basophils (Bld) [#/Vol] 0.05 10*3/uL Normal <0.11 [facility] Comment on above: Order Comment: Speci men Type: BLOOD SPECIMEN Ordering Facility: [facility] Address: [address] [place] [address] Performed By: #### 5 1775-5, 34362-3, 39495-9, 83535-2, 81155-5, 15171-5, 78127-1, 37295-6 #### [facility] CLIA [id number] [address] [place] [address] [place] Basophils/100 WBC (Bld) 0.9 % Normal [facility] Comment on above: Order Comment: Speci men Type: BLOOD SPECIMEN Ordering Facility: [facility] Address: [address] [place] [address] Performed By: #### 5 1775-5, 19923-7, 81479-8, 63334-1, 83008-1, 41486-7, 39813-6, 82607-7 #### [facility] CLIA [id number] [address] [place] [address] [place] Differential cell count method Nom (Bld) Auto Normal [facility] Comment on above: Order Comment: Speci men Type: BLOOD SPECIMEN Ordering Facility: [facility] Address: [address] [place] [address] Performed By: #### 5 1775-5, 35862-0, 95212-3, 82255-5, 75411-1, 08439-0, 62597-0, 34359-3 #### [facility] CLIA [id number] [address] [place] [address] [place] Eosinophils (Bld) [#/Vol] 0.23 10*3/uL Normal <0.46 [facility] Comment on above: Order Comment: Speci men Type: BLOOD SPECIMEN Ordering Facility: [facility] Address: [address] [place] [address] Performed By: #### 5 1775-5, 99805-8, 14677-7, 29651-6, 92750-0, 48953-1, 20059-2, 77445-3 #### [facility] CLIA [id number] [address] [place] [address] [place] Eosinophils/100 WBC (Bld) 3.9 % Normal [facility] Comment on above: Order Comment: Speci men Type: BLOOD SPECIMEN Ordering Facility: [facility] Address: [address] [place] [address] Performed By: #### 5 1775-5, 93053-7, 80641-9, 49963-4, 57925-2, 11221-0, 54150-7, 67004-2 #### [facility] CLIA [id number] [address] [place] [address] [place] Erythrocyte distribution width (RBC) [Ratio] 12.8 % Normal 11.5-15.0 [facility] Comment on above: Order Comment: Speci men Type: BLOOD SPECIMEN Ordering Facility: [facility] Address: [address] [place] [address] Performed By: #### 5 1775-5, 23808-8, 31681-3, 33201-7, 38029-1, 56563-7, 27149-6, 63646-2 #### [facility] CLIA [id number] [address] [place] [address] [place] Hematocrit (Bld) [Volume fraction] 43.5 % Normal 36.0-46.0 [facility] Comment on above: Order Comment: Speci men Type: BLOOD SPECIMEN Ordering Facility: [facility] Address: [address] [place] [address] Performed By: #### 5 1775-5, 21901-7, 32617-1, 33960-6, 76925-5, 82984-6, 31780-4, 65076-3 #### [facility] CLIA [id number] [address] [place] [address] [place] Hemoglobin (Bld) [Mass/Vol] 14.9 g/dL Normal 11.5-15.5 [facility] Comment on above: Order Comment: Speci men Type: BLOOD SPECIMEN Ordering Facility: [facility] Address: [address] [place] [address] Performed By: #### 5 1775-5, 20328-0, 78406-2, 44685-2, 61606-4, 75447-2, 13222-9, 06602-8 #### [facility] CLIA [id number] [address] [place] [address] [place] Immature granulocytes (Bld) [#/Vol] 0.03 10*3/uL Normal <0.10 [facility] Comment on above: Order Comment: Speci men Type: BLOOD SPECIMEN Ordering Facility: [facility] Address: [address] [place] [address] Performed By: #### 5 1775-5, 44407-4, 25873-1, 57694-3, 84127-4, 43149-8, 16254-6, 09529-6 #### [facility] CLIA [id number] [address] [place] [address] [place] Immature granulocytes/100 WBC (Bld) 0.5 % Normal [facility] Comment on above: Order Comment: Speci men Type: BLOOD SPECIMEN Ordering Facility: [facility] Address: [address] [place] [address] Performed By: #### 5 1775-5, 45446-7, 54483-5, 49846-6, 73327-7, 41282-6, 12991-1, 33213-2 #### [facility] CLIA [id number] [address] [place] [address] [place] Lymphocytes (Bld) [#/Vol] 0.92 10*3/uL Low 1.00-4.00 [facility] Comment on above: Order Comment: Speci men Type: BLOOD SPECIMEN Ordering Facility: [facility] Address: [address] [place] [address] Performed By: #### 5 1775-5, 00491-1, 82351-1, 57142-8, 90340-6, 01028-3, 15265-4, 98882-4 #### [facility] CLIA [id number] [address] [place] [address] [place] Lymphocytes/100 WBC (Bld) 15.8 % Normal [facility] Comment on above: Order Comment: Speci men Type: BLOOD SPECIMEN Ordering Facility: [facility] Address: [address] [place] [address] Performed By: #### 5 1775-5, 20534-2, 34968-9, 71648-3, 84845-7, 58013-4, 45866-7, 11141-3 #### [facility] CLIA [id number] [address] [place] [address] [place] MCH (RBC) [Entitic mass] 29.1 pg Normal 26.0-34.0 [facility] Comment on above: Order Comment: Speci men Type: BLOOD SPECIMEN Ordering Facility: [facility] Address: [address] [place] [address] Performed By: #### 5 1775-5, 10413-0, 60653-9, 62046-9, 83038-2, 97717-7, 71360-5, 27332-7 #### [facility] CLIA [id number] [address] [place] [address] [place] MCHC (RBC) [Mass/Vol] 34.3 g/dL Normal 30.5-36.0 [facility] Comment on above: Order Comment: Speci men Type: BLOOD SPECIMEN Ordering Facility: [facility] Address: [address] [place] [address] Performed By: #### 5 1775-5, 64942-3, 24757-6, 29257-5, 13551-3, 29268-1, 33212-3, 54739-7 #### [facility] CLIA [id number] [address] [place] [address] [place] MCV (RBC) [Entitic vol] 85.0 fL Normal 80.0-100.0 [facility] Comment on above: Order Comment: Speci men Type: BLOOD SPECIMEN Ordering Facility: [facility] Address: [address] [place] [address] Performed By: #### 5 1775-5, 68374-4, 52938-7, 48171-4, 36639-8, 12712-7, 53420-4, 09221-0 #### [facility] CLIA [id number] [address] [place] [address] [place] Monocytes (Bld) [#/Vol] 0.84 10*3/uL Normal <0.87 [facility] Comment on above: Order Comment: Speci men Type: BLOOD SPECIMEN Ordering Facility: [facility] Address: [address] [place] [address] Performed By: #### 5 1775-5, 29846-5, 15750-6, 84880-2, 93788-6, 69256-5, 35900-0, 21918-6 #### [facility] CLIA [id number] [address] [place] [address] [place] Monocytes/100 WBC (Bld) 14.4 % Normal [facility] Comment on above: Order Comment: Speci men Type: BLOOD SPECIMEN Ordering Facility: [facility] Address: [address] [place] [address] Performed By: #### 5 1775-5, 62727-5, 74203-5, 55425-9, 13423-6, 20537-8, 32534-7, 72086-4 #### [facility] CLIA [id number] [address] [place] [address] [place] Neutrophils (Bld) [#/Vol] 3.77 10*3/uL Normal 1.45-7.50 [facility] Comment on above: Order Comment: Speci men Type: BLOOD SPECIMEN Ordering Facility: [facility] Address: [address] [place] [address] Performed By: #### 5 5-5, 89573-0, 92665-0, 56973-5, 20291-9, 72071-9, 73747-7, 99116-6 #### [facility] CLIA [id number] [address] [place] [address] [place] Neutrophils/100 WBC (Bld) 64.5 % Normal [facility] Comment on above: Order Comment: Speci men Type: BLOOD SPECIMEN Ordering Facility: [facility] Address: [address] [place] [address] Performed By: #### 5 5-5, 39515-8, 85373-5, 95469-5, 19518-1, 27141-3, 38011-9, 06015-5 #### [facility] CLIA [id number] [address] [place] [address] [place] Nucleated RBC (Bld) [#/Vol] 10*3/uL Normal <0.01 [facility] Comment on above: Order Comment: Speci men Type: BLOOD SPECIMEN Ordering Facility: [facility] Address: [address] [place] [address] Performed By: #### 5 1775-5, 70099-4, 03267-5, 85174-7, 12061-2, 20603-0, 72160-4, 51477-6 #### [facility] CLIA [id number] [address] [place] [address] [place] Nucleated RBC/100 WBC (Bld) [Ratio] 0.0 /100 WBC Normal [facility] Comment on above: Order Comment: Speci men Type: BLOOD SPECIMEN Ordering Facility: [facility] Address: [address] [place] [address] Performed By: #### 5 1775-5, 12937-7, 50775-9, 65230-2, 86744-7, 97438-9, 05375-5, 57022-2 #### [facility] CLIA [id number] [address] [place] [address] [place] Platelet mean volume (Bld) [Entitic vol] 10.6 fL Normal 9.0-12.7 [facility] Comment on above: Order Comment: Speci men Type: BLOOD SPECIMEN Ordering Facility: [facility] Address: [address] [place] [address] Performed By: #### 5 1775-5, 75281-3, 68938-7, 73207-5, 33684-2, 97878-6, 59268-7, 96243-3 #### [facility] CLIA [id number] [address] [place] [address] [place] Platelets (Bld) [#/Vol] 168 10*3/uL Normal 150-400 [facility] Comment on above: Order Comment: Speci men Type: BLOOD SPECIMEN Ordering Facility: [facility] Address: [address] [place] [address] Performed By: #### 5 1775-5, 03053-4, 91806-3, 17268-5, 84284-4, 84955-4, 51804-6, 11438-2 #### [facility] CLIA [id number] [address] [place] [address] [place] RBC (Bld) [#/Vol] 5.12 10*6/uL Normal 3.90-5.20 [facility] Comment on above: Order Comment: Speci men Type: BLOOD SPECIMEN Ordering Facility: [facility] Address: [address] [place] [address] Performed By: #### 5 1775-5, 64250-8, 22808-1, 74515-4, 14859-3, 08679-9, 44891-5, 05503-1 #### [facility] CLIA [id number] [address] [place] [address] [place] WBC (Bld) [#/Vol] 5.84 10*3/uL Normal 3.70-11.00 [facility] Comment on above: Order Comment: Speci men Type: BLOOD SPECIMEN Ordering Facility: [facility] Address: [address] [place] [address] Performed By: #### 5 1775-5, 20059-7, 96056-0, 86446-1, 25884-0, 91575-8, 14455-7, 19443-5 #### [facility] CLIA [id number] [address] [place] [address] [place] CNOVon 09-20-2024 CNOV Office Visit (RHWSTR ) CONCEPCION DONALDSON ([id number]) 1940 F Date Time Provider Department 09/20/24 9:30 AM LEXIS ROCA RHWSTR During your visit today, we recorded the following information about you: Pulse Blood pressure Weight 71/minute 174/92 72.6 kg Lexis Roca PA-C 09/20/2024 10:51 AM Signed Rheumatology CONSULTATION Date of Service: 09/20/2024 Patient: Concepcion Donaldson Medical Record: [id number] Primary Care Physician: Preston Haney MD Last Rheumatology visit: None at [facility] Referring Provider: Elisabeth Hoff [address] [facility] [address] Concepcion Donaldson is here today at request of Elisabeth Hoff APRN.[facility] specifically for consultation of my opinion in regards to the chief complaint listed below. Correspondence will be shared today via the [employer] electronic health record or through regular mail, [...] use after diagnosed with gastric ulcer at [facility]. She thought the medication was starting to help, but she feels her hand pain has gotten worse since. Most of her pain today is in her hands. 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 The worst area of her pain is [...] 02/17/24 labs CBC- OK, low Ly%, High [place] %, High EO%. CMP- hyponatremia 133 Sed rate normal 9 CRP<2.9 ANNIE negative CCP negative Rheumatoid factor negative Hepatitis B surface antigen and surface antibody nonreactive hepatitis C antibody nonreactive 03/27/24 labs CBC normal CMP low alk phos 43, hyponatremia 130, hypochloremia 97 06/03/24 labs CBC RDW CV 15.0 elevated Ly% 17.0 (low) [place] % 12.8 (high) Immature Granulocytes 1% (high) - Left shift CMP - normal creatinine 0.8. 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 1 daughter Angela (here [...] Leg-Left F (more content not included)... Normal [facility] CNPNon 09-20-2024 CNPN Telephone (INTMWS) CONCEPCION DONALDSON ([id number]) 1940 F Date Time Provider Department 09/20/24 ELISABETH HOFF INTMWS During your visit today, we recorded the following information about you: Elisabeth Hoff APRN.[employer] 09/20/2024 11:31 AM Signed Please let her [...] red rash; itching back of neck. 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 Normal [facility] CRP SerPl-mCncon 09-20-2024 CRP [Mass/Vol] mg/L Normal <0.9 [facility] Comment on above: Order Comment: Speci men Type: BLOOD SPECIMEN Ordering Facility: [facility] Address: [address] [place] [address] Performed By: #### 5 1775-5, 20379-1, 33739-3, 51224-8, 42318-1, 03755-2, 90433-9, 58422-8 #### [facility] CLIA [id number] [address] [place] [address] [place] Centromere Ab IF Ql (S)on Centromere Ab Qn (S) <0.2 Normal <1.0 [facility] Comment on above: Order Comment: Speci teena Type: BLOOD SPECIMEN Ordering Facility: [facility] Address: [address] [place] [address] Result Comment: Anti -centromere antibody is used as in aid in diagnosis of systemic sclerosis. Clinical correlation is required. Test Methodology: Multiplex flow immunoassay. Performed By: #### 5 1775-5, 32867-3, 93332-8, 67704-6, 91698-0, 49818-5, 31824-0, 00180-6 #### [facility] CLIA [id number] [address] [place] [address] [place] CENTROMERE AB QUAL Negative Normal Negative [facility] Comment on above: Order Comment: Speci teena Type: BLOOD SPECIMEN Ordering Facility: [facility] Address: [address] [place] [address] Performed By: #### 5 1775-5, 75778-1, 60847-1, 86886-7, 67536-3, 93496-9, 10571-3, 68874-6 #### [facility] CLIA [id number] [address] [place] [address] [place] Chromatin Ab Qnon 09-20-2024 CHROMATIN AB QUAL Negative Normal Negative [facility] Comment on above: Order Comment: Speci men Type: BLOOD SPECIMEN Ordering Facility: [facility] Address: [address] [place] [address] Performed By: #### 5 1775-5, 26458-9, 97587-7, 68439-7, 05300-1, 73594-2, 80813-8, 75500-8 #### [facility] CLIA [id number] [address] [place] [address] [place] Chromatin Ab SerPl-aCncon Chromatin Ab Qn <0.2 Normal <1.0 [facility] Comment on above: Order Comment: Speci men Type: BLOOD SPECIMEN Ordering Facility: [facility] Address: [address] [place] [address] Result Comment: Test Methodology: Multiplex flow immunoassay. Performed By: #### 5 1775-5, 29365-2, 78394-3, 67685-6, 88718-2, 65828-3, 39776-8, 92760-0 #### [facility] CLIA [id number] [address] [place] [address] [place] Comprehensive metabolic 2000 panelOrdered By: Erica Monreal on 09-20-2024 Albumin [Mass/Vol] 4.5 g/dL 3.9 - 4.9 g/dL [facility] ALP [Catalytic activity/Vol] 51 U/L 34 - 123 U/L [facility] ALT [Catalytic activity/Vol] 12 U/L 7 - 38 U/L [facility] Anion gap [Moles/Vol] 11 mmol/L 8 - 15 mmol/L [facility] AST [Catalytic activity/Vol] 21 U/L 13 - 35 U/L [facility] Bilirubin [Mass/Vol] 0.4 mg/dL 0.2 - 1 .3 mg/dL [facility] Calcium [Mass/Vol] 10.1 mg/dL 8.5 - 10. 2 mg/dL [facility] Chloride [Moles/Vol] 92 mmol/L Low 98 - 10 7 mmol/L [facility] CO2 [Moles/Vol] 27 mmol/L 22 - 30 mmol/L [facility] Creatinine [Mass/Vol] 0.74 mg/dL 0.58 - 0.96 mg/dL [facility] GFR/1.73 sq M.predicted among non-blacks MDRD (S/P/Bld) [Vol rate/Area] 81 mL/min/{1.73_m2} - PINF [facility] Comment on above: Estimated Glomerular Filtration Rate [...] [Mass/Vol] 89 mg/dL 74 - 99 mg/dL [facility] Comment on above: The [place] Diabete s [employer] (ADA) provides guidance for [...] Standards of Medical Care in Diabetes 2016, [place] [employer]. Diabetes Care. 2016.39(Suppl 1). Interpretation and review of laboratory results Abnormal [facility] Potassium [Moles/Vol] 3.8 mmol/L 3.7 - 5.1 mmol/L [facility] Protein [Mass/Vol] 7.3 g/dL 6.3 - 8.0 g/dL Cl [facility] Sodium [Moles/Vol] 130 mmol/L Low 136 - 144 mmol/L [facility] Urea nitrogen [Mass/Vol] 14 mg/dL 7 - 21 mg/dL [facility] Comprehensive metabolic 2000 panelon 09-20-2024 Albumin [Mass/Vol] 4.5 g/dL Normal 3.9-4.9 [facility] Comment on above: Order Comment: Speci men Type: BLOOD SPECIMEN Ordering Facility: [facility] Address: [address] [place] [address] Performed By: #### 5 1775-5, 33547-7, 60452-1, 05100-2, 67537-4, 25047-5, 04538-3, 88750-6 #### [facility] CLIA [id number] [address] [place] [address] [place] ALP [Catalytic activity/Vol] 51 U/L Normal 34-123 [facility] Comment on above: Order Comment: Speci men Type: BLOOD SPECIMEN Ordering Facility: [facility] Address: [address] [place] [address] Performed By: #### 5 1775-5, 73392-0, 41756-1, 69257-1, 26800-4, 36075-1, 82954-8, 96846-9 #### [facility] CLIA [id number] [address] [place] [address] [place] ALT [Catalytic activity/Vol] 12 U/L Normal 7-38 [facility] Comment on above: Order Comment: Speci men Type: BLOOD SPECIMEN Ordering Facility: [facility] Address: [address] [place] [address] Performed By: #### 5 1775-5, 66089-2, 08576-3, 11343-1, 41187-3, 20341-6, 88537-1, 92169-7 #### [facility] CLIA [id number] [address] [place], [place] [id number] [place] Anion gap [Moles/Vol] 11 mmol/L Normal 8-15 [facility] Comment on above: Order Comment: Speci men Type: BLOOD SPECIMEN Ordering Facility: [facility] Address: [address] [place] [address] Performed By: #### 5 1775-5, 24994-4, 14135-7, 71723-6, 70130-1, 25839-6, 85791-0, 85326-7 #### [facility] CLIA [id number] [address] [place] [address] [place] AST [Catalytic activity/Vol] 21 U/L Normal 13-35 [facility] Comment on above: Order Comment: Speci men Type: BLOOD SPECIMEN Ordering Facility: [facility] Address: [address] [place] [address] Performed By: #### 5 1775-5, 04386-3, 90914-9, 83180-6, 33309-7, 25037-2, 89410-1, 78682-3 #### [facility] CLIA [id number] [address] [place] [address] [place] Bilirubin [Mass/Vol] 0.4 mg/dL Normal 0.2-1.3 [facility] Comment on above: Order Comment: Speci men Type: BLOOD SPECIMEN Ordering Facility: [facility] Address: [address] [place] [address] Performed By: #### 5 1775-5, 73161-7, 76330-6, 90133-3, 53648-1, 98569-6, 11584-1, 08482-3 #### [facility] CLIA [id number] [address] [place] [address] [place] Calcium [Mass/Vol] 10.1 mg/dL Normal 8.5-10.2 [facility] Comment on above: Order Comment: Speci men Type: BLOOD SPECIMEN Ordering Facility: [facility] Address: [address] [place] [address] Performed By: #### 5 1775-5, 34839-3, 62072-1, 50495-3, 89588-5, 99454-0, 89502-5, 13130-3 #### [facility] CLIA [id number] [address] [place], [place] [id number] [place] Chloride [Moles/Vol] 92 mmol/L Low 98-107 [facility] Comment on above: Order Comment: Speci men Type: BLOOD SPECIMEN Ordering Facility: [facility] Address: [address] [place] [address] Performed By: #### 5 1775-5, 94037-8, 23556-6, 50500-1, 67143-3, 70502-1, 77106-8, 77642-6 #### [facility] CLIA [id number] [address] [place] [address] [place] CO2 [Moles/Vol] 27 mmol/L Normal 22-30 [facility] Comment on above: Order Comment: Speci men Type: BLOOD SPECIMEN Ordering Facility: [facility] Address: [address] [place] [address] Performed By: #### 5 1775-5, 16899-0, 64732-8, 67610-7, 37158-2, 97099-6, 20115-2, 19636-8 #### [facility] CLIA [id number] [address] [place], [place] [id number] [place] Creatinine [Mass/Vol] 0.74 mg/dL Normal 0.58-0.96 [facility] Comment on above: Order Comment: Speci men Type: BLOOD SPECIMEN Ordering Facility: [facility] Address: [address] [place] [address] Performed By: #### 5 1775-5, 37317-8, 29980-3, 75493-3, 81504-3, 36226-6, 20087-4, 67685-8 #### [facility] CLIA [id number] [address] [place] [address] [place] Creatinine and Glomerular filtration rate.predicted panel (S/P/Bld) 81 mL/min/1.73m??? Normal >=60 [facility] Comment on above: Order Comment: Kristofer dickinson Type: BLOOD SPECIMEN Ordering Facility: [facility] Address: [address] [place] [address] Result Comment: Sravanthi mated Glomerular Filtration Rate [...] accurately reflect actual GFR. Performed By: #### 5 1775-5, 14254-2, 71588-0, 01184-9, 76600-8, 61827-5, 06497-1, 77147-7 #### [facility] CLIA [id number] [address] [place] [address] [place] Glucose [Mass/Vol] 89 mg/dL Normal 74-99 [facility] Comment on above: Order Comment: Kristofer dickinson Type: BLOOD SPECIMEN Ordering Facility: [facility] Address: [address] [place] [address] Result Comment: The [place] Diabetes Association (ADA) provides guidance for cutoff [...] Standards of Medical Care in Diabetes 2016, [place] [employer]. Diabetes Care. 2016.39(Suppl 1). Performed By: #### 5 1775-5, 21456-3, 73656-7, 76005-0, 18003-7, 80757-7, 13828-7, 14270-0 #### [facility] CLIA [id number] [address] [place], [place] [address] [place] Potassium [Moles/Vol] 3.8 mmol/L Normal 3.7-5.1 [facility] Comment on above: Order Comment: Speci men Type: BLOOD SPECIMEN Ordering Facility: [facility] Address: [address] [place] [address] Performed By: #### 5 1775-5, 78922-6, 10299-0, 05029-6, 42581-5, 21034-4, 12186-3, 95721-2 #### [facility] CLIA [id number] [address] [place] [address] [place] Protein [Mass/Vol] 7.3 g/dL Normal 6.3-8.0 [facility] Comment on above: Order Comment: Speci men Type: BLOOD SPECIMEN Ordering Facility: [facility] Address: [address] [place] [address] Performed By: #### 5 1775-5, 92948-6, 20275-0, 71305-8, 00131-9, 96897-5, 39008-2, 94816-0 #### [facility] CLIA [id number] [address] [place] [address] [place] Sodium [Moles/Vol] 130 mmol/L Low 136-144 [facility] Comment on above: Order Comment: Speci men Type: BLOOD SPECIMEN Ordering Facility: [facility] Address: [address] [place] [address] Performed By: #### 5 1775-5, 02603-5, 92497-2, 79422-2, 13926-3, 71358-9, 27719-2, 21989-4 #### [facility] CLIA [id number] [address] [place], [place] [address] [place] Urea nitrogen [Mass/Vol] 14 mg/dL Normal 7-21 [facility] Comment on above: Order Comment: Speci men Type: BLOOD SPECIMEN Ordering Facility: [facility] Address: [address] [place] [address] Performed By: #### 5 1775-5, 55320-9, 60768-1, 47071-6, 13084-7, 13565-1, 78825-4, 52296-4 #### [facility] CLIA [id number] [address] [place] [address] [place] Cyclic citrullinated peptide IgG Qnon 09-20-2024 CCP ANTIBODY IGG QUALITATIVE Negative Normal Negative [facility] Comment on above: Order Comment: Speci men Type: BLOOD SPECIMEN Ordering Facility: [facility] Address: [address] [place] [address] Performed By: #### 5 1775-5, 23693-5, 28425-7, 79472-1, 91563-6, 52935-3, 52832-2, 11817-2 #### [facility] CLIA [id number] [address] [place] [address] [place] BRENDA Jo1 Ab Ser-aCncon 2024 Elida-1 extractable nuclear Ab Qn (S) <0.2 Normal <1.0 [facility] Comment on above: Order Comment: Speci men Type: BLOOD SPECIMEN Ordering Facility: [facility] Address: [address] [place] [address] Performed By: #### 5 1775-5, 15004-3, 16054-0, 44449-4, 99974-5, 20059-3, 79937-5, 26223-9 #### [facility] CLIA [id number] [address] [place] [address] [place] BRENDA MATERIAL DISTRIBUTOR Ab Ser-aCncon 2024 Ribonucleoprotein extractable nuclear Ab Qn (S) <0.2 Normal <1.0 [facility] Comment on above: Order Comment: Speci men Type: BLOOD SPECIMEN Ordering Facility: [facility] Address: [address] [place] [address] Performed By: #### 5 1775-5, 25714-3, 58685-0, 81823-6, 09558-9, 52559-5, 52252-9, 87864-6 #### [facility] CLIA [id number] [address] [place] [address] [place] BRENDA SM IgG Ser-aCncon 2024 Diaz extractable nuclear IgG Qn (S) <0.2 Normal <1.0 [facility] Comment on above: Order Comment: Speci men Type: BLOOD SPECIMEN Ordering Facility: [facility] Address: [address] [place] [address] Performed By: #### 5 1775-5, 24105-7, 10631-7, 86400-4, 15489-2, 56497-6, 03081-8, 71568-4 #### [facility] CLIA [id number] [address] [place] [address] [place] BRENDA SS-A Ab Ser-aCncon 09-20 Sjogrens syndrome-A extractable nuclear Ab Qn (S) <0.2 Normal <1.0 [facility] Comment on above: Order Comment: Speci men Type: BLOOD SPECIMEN Ordering Facility: [facility] Address: [address] [place] [address] Result Comment: Test Methodology: Multiplex flow immunoassay. Performed By: #### 5 1775-5, 86194-4, 45884-8, 70017-0, 28471-0, 50481-9, 25360-1, 96506-3 #### [facility] CLIA [id number] [address] [place] [address] [place] BRENDA SS-B Ab Ser-aCncon 09-20 Sjogrens syndrome-B extractable nuclear Ab Qn (S) <0.2 Normal <1.0 [facility] Comment on above: Order Comment: Speci men Type: BLOOD SPECIMEN Ordering Facility: [facility] Address: [address] [place] [address] Result Comment: Anti -SSB (anti-La) antibody is used as an aid in diagnosis of a variety of systemic autoimmune diseases, especially for Sjogren's syndrome and systemic lupus erythematosus. Clinical correlation is required. Test Methodology: Multiplex flow immunoassay. Performed By: #### 5 1775-5, 14843-6, 44808-2, 32387-0, 47933-2, 40777-4, 80151-2, 91392-2 #### [facility] CLIA [id number] [address] [place] [address] [place] ESR Westergren method (Bld) [Velocity]on 09-20-2024 ESR (Bld) [Velocity] 2 mm/h Normal 0-20 [facility] Comment on above: Order Comment: Speci men Type: BLOOD SPECIMEN Ordering Facility: [facility] Address: [address] [place] [address] Performed By: #### 5 1775-5, 89570-0, 67603-1, 18479-5, 86348-7, 60136-3, 32484-5, 95512-7 #### [facility] CLIA [id number] [address] [place] [address] [place] Elida-1 extractable nuclear Ab Qn (S)on 09-20-2024 ELIDA 1 ANTIBODY QUAL Negative Normal Negative [facility] Comment on above: Order Comment: Speci men Type: BLOOD SPECIMEN Ordering Facility: [facility] Address: [address] [place] [address] Result Comment: Anti -ELIDA-1 antibody is used as an aid in diagnosis of polymyositis and dermatomyositis especially with pulmonary involvement. A negative result cannot rule out polymyositis or dermatomyositis. Clinical correlation is required. Test Methodology: Multiplex flow immunoassay. Performed By: #### 5 1775-5, 42939-7, 87750-5, 93787-2, 08108-5, 23943-8, 20053-2, 51221-2 #### [facility] CLIA [id number] [address] [place] [address] [place] Rheumatoid fact SerPl-aCncon 09-20-2024 Rheumatoid factor Qn [IU]/mL Normal <16 [facility] Comment on above: Order Comment: Speci teena Type: BLOOD SPECIMEN Ordering Facility: [facility] Address: [address] [place] [address] Performed By: #### 5 1775-5, 45336-6, 24913-4, 58785-8, 65433-8, 41239-9, 07846-4, 75971-9 #### [facility] CLIA [id number] [address] [place] [address] [place] Ribonucleoprotein extractabl e nuclear Ab Qn (S)on 09-20-2024 ANTI-MATERIAL DISTRIBUTOR QUAL Negative Normal Negative [facility] Comment on above: Order Comment: Kristofer dickinson Type: BLOOD SPECIMEN Ordering Facility: [facility] Address: [address] [place] [address] Performed By: #### 5 1775-5, 92836-4, 70709-3, 51673-9, 77833-5, 63739-1, 92367-1, 79639-3 #### [facility] CLIA [id number] [address] [place] [address] [place] RIBOSOMAL MATERIAL DISTRIBUTOR QUAL Negative Normal Negative [facility] Comment on above: Order Comment: Kristofer dickinson Type: BLOOD SPECIMEN Ordering Facility: [facility] Address: [address] [place] [address] Result Comment: Anti -Ribosomal RNA (Ribosomal P) antibody is used as an aid in diagnosis of systemic autoimmune diseases especially systemic lupus erythematosus and mixed connective tissue disease. Cross-reactivity with Anti-diaz antibody is not uncommon. Clinical correlation is required. Test Methodology: Multiplex flow immunoassay. Performed By: #### 5 1775-5, 29090-6, 11174-7, 31967-5, 52172-4, 40908-4, 19131-9, 24268-7 #### [facility] CLIA [id number] [address] [place] [address] [place] SCL-70 extractable nuclear I gG IA Qn (S)on 09-20-2024 SCLERODERMA AB QUAL Negative Normal Negative [facility] Comment on above: Order Comment: Speci men Type: BLOOD SPECIMEN Ordering Facility: [facility] Address: [address] [place] [address] Performed By: #### 5 1775-5, 14076-5, 87307-4, 30280-7, 22473-7, 14343-7, 61746-8, 75548-1 #### [facility] CLIA [id number] [address] [place] [address] [place] SCLERODERMA IGG AB <0.2 Normal <1.0 [facility] Comment on above: Order Comment: Speci men Type: BLOOD SPECIMEN Ordering Facility: [facility] Address: [address] [place] [address] Result Comment: Scl- 70/Scleroderma antibody test is used as an aid in diagnosis of systemic sclerosis especially the diffuse cutaneous form. A negative result cannot rule out systemic sclerosis. The final interpretation should consider clinical picture and other test results such as anti-centromere antibody. Test Methodology: Multiplex flow immunoassay. Performed By: #### 5 1775-5, 88200-6, 91696-1, 51639-0, 60666-0, 29309-4, 88100-8, 46876-6 #### [facility] CLIA [id number] [address] [place] [address] [place] Sjogrens syndrome-A extracta ble nuclear Ab Qn (S)on 09-20-2024 SSA ANTIBODY QUAL Negative Normal Negative [facility] Comment on above: Order Comment: Speci men Type: BLOOD SPECIMEN Ordering Facility: [facility] Address: [address] [place] [address] Performed By: #### 5 1775-5, 39157-4, 40879-8, 56764-2, 03658-4, 91961-8, 06404-9, 30200-5 #### [facility] CLIA [id number] [address] [place] [address] [place] Sjogrens syndrome-B extracta ble nuclear Ab Qn (S)on 09-20-2024 SSB ANTIBODY QUAL Negative Normal Negative [facility] Comment on above: Order Comment: Speci men Type: BLOOD SPECIMEN Ordering Facility: [facility] Address: [address] [place] [address] Performed By: #### 5 1775-5, 21704-7, 36370-1, 55141-0, 84205-2, 22025-2, 70275-9, 99438-5 #### [facility] CLIA [id number] [address] [place] [address] [place] Diaz extractable nuclear Ig G Qn (S)on 09-20-2024 SM ANTIBODY QUAL Negative Normal Negative [facility] Comment on above: Order Comment: Speci men Type: BLOOD SPECIMEN Ordering Facility: [facility] Address: [address] [place] [address] Result Comment: Anti -Sm (Diaz) antibody is used as an aid in diagnosis of systemic lupus erythematosus and its presence is associated with renal disease. A negative result cannot rule out systemic lupus erythematosus. Clinical correlation is required. Test Methodology: Multiplex flow immunoassay. Performed By: #### 5 1775-5, 92766-2, 59960-5, 45263-8, 87188-6, 01560-5, 74490-0, 96708-9 #### [facility] CLIA [id number] [address] [place] [address] [place] Urate SerPl-mCncon Urate [Mass/Vol] 7.1 mg/dL High 2.5-6.6 [facility] Comment on above: Order Comment: Speci men Type: BLOOD SPECIMEN Ordering Facility: [facility] Address: [address] [place] [address] Performed By: #### 5 1775-5, 39822-4, 70693-7, 65828-4, 28187-5, 17347-1, 91199-4, 75398-2 #### [facility] HARPAL [id number] [address] [place] [address] [place] XR FOOT 3V [...] or dislocation is present. Mild tibiotalar and dtvs-mu-eddrjztr midfoot joint space narrowing with mild osteoarthropathy. [...] the right Lisfranc joint space 0.4 cm. Board Writer: PSCB Transcribe Date/Time: Sep 25 2024 7:18A Dictated by : MERLENE RODRIGUEZ MD This examination was interpreted and the report reviewed and electronically signed by: MERLENE RODRIGUEZ MD on Sep 25 2024 7:24AM EST [id number] Normal [facility] XR HAND 3V PA/LAT/OBL BILon 09-20-2024 XR [...] bony erosions. IMPRESSION: Degenerative changes as described. Board Writer: CANDY Transcribe Date/Time: Sep 24 2024 11:19A Dictated by : CLARE HUNTER MD This examination was interpreted and the report reviewed and electronically signed by: CLARE HUNTER MD on Sep 24 2024 11:20AM EST [id number] Normal [facility] cCP IgG SerPl-aCncon 025 Cyclic citrullinated peptide IgG Qn <15 Normal <20 [facility] Comment on above: Order Comment: Speci men Type: BLOOD SPECIMEN Ordering Facility: [facility] Address: [address] [place] [address] Performed By: #### 5 1775-5, 72102-7, 81725-4, 31099-7, 94771-4, 23896-7, 26631-0, 55146-0 #### [facility] CLIA [id number] [address] [place] [address] [place] Matthew 09-12-2024 CNPN Telephone (RHWSTR) CONCEPCION DONALDSON ([id number]) 1940 F Date Time Provider Department 09/12/24 LEXIS ROCA WSTR During your visit today, we recorded the [...] 02/17/24 labs CBC- OK, low Ly%, High [place] %, High EO%. CMP- hyponatremia 133 Sed rate normal 9 CRP<2.9 ANNIE negative CCP negative Rheumatoid factor negative Hepatitis B surface antigen and surface antibody nonreactive hepatitis C antibody nonreactive 03/27/24 labs CBC normal CMP low alk phos 43, hyponatremia 130, hypochloremia 97 06/03/24 labs CBC RDW CV 15.0 elevated Ly% 17.0 (low) [place] % 12.8 (high) Immature Granulocytes 1% (high) [...] red rash; itching back of neck. Saw geophysical support specialist Date Reviewed: 07/20/2024 Reviewed by: Ratna Newberry LPN - Fully Assessed Reason for Visit: Received Outside Medical Records [[id number]] Cmt: [facility] notes and labs [...] DDD (degenerative (more content not included)... Normal [facility] DBT Breast - bilateral scree jennifergon 08-21-2024 IMPRESSION: There is no mammographic evidence [...] Daniel Griffin M.D. Electronically signed on: 08/21/2024 Board Writer: RAGHU Transcribe Date/Time: Aug 21 2024 9:09A Dictated by: DANIEL GRIFFIN MD This examination was interpreted and the report reviewed and electronically signed by: DANIEL GRIFFIN MD on Aug 21 2024 4:07PM [facility] DIVISION OF RADIOLOGY * * *Final Report* * * DATE OF EXAM: Aug 21 2024 9:54AM [facility] 0582 - CESAR SCREENING W RIVAS / PROCEDURE REASON: Breast cancer screening by mammogram * * * * Physician Interpretation * * * * RESULT: [place] [address] #[id number] - CESAR SCREENING W RIVAS HISTORY: 83 [...] clip left breast. DIVISION OF RADIOLOGY Provider, Shiva Brizuela [facility] - 08/21/2024 * * *Final Report* * * DATE OF EXAM: Aug 21 2024 9:54AM [facility] 0582 - CESAR SCREENING W RIVAS / PROCEDURE REASON: Breast cancer screening by mammogram * * * * Physician Interpretation * * * * RESULT: [facility] [address] [id number] #[id number] - [facility] SCREENING W RIVAS HISTORY: 83 year-old [...] Daniel Griffin M.D. Electronically signed on: 08/21/2024 Board Writer: RAGHU Transcribe Date/Time: Aug 21 2024 9:09A Dictated by: DANIEL GRIFFIN MD This examination was interpreted and the report reviewed and electronically signed by: DANIEL GRIFFIN MD on Aug 21 2024 4:07PM EST [facility] Radiology Study observation (narrative) [facility] DBT Breast - bilateral scree ningOrdered By: Ccf Provider on 08-21-2024 [facility] CESAR SCREENING W TOMOon 08-21 CESAR SCREENING W RIVAS * * *Final Report* * * DATE OF EXAM: Aug 21 2024 9:54AM [facility] 0582 - CESAR SCREENING W RIVAS / PROCEDURE REASON: Breast cancer screening by mammogram * * * * Physician Interpretation * * * * RESULT: [place] [address] #[id number] - CESAR SCREENING W RIVAS HISTORY: 83 [...] Daniel Griffin M.D. Electronically signed on: 08/21/2024 Board Writer: RAGHU Transcribe Date/Time: Aug 21 2024 9:09A Dictated by: DANIEL GRIFFIN MD This examination was interpreted and the report reviewed and electronically signed by: DANIEL GRIFFIN MD on Aug 21 2024 4:07PM EST [id number] Normal [facility] CNPNon 08-16-2024 CNPN Telephone (WSTR) CONCEPCION DONALDSON ([id number]) 1940 F Date Time Provider Department 08/16/24 LEXIS ROCA [facility] During your visit today, we recorded the following information about you: Genesis Zuñiga RN 08/16/2024 4:14 PM Signed ----- Message from Lexis Roca APRN.SUPER[employer]OR [employer] sent at 08/16/2024 3:40 PM EST ----- This patient was seeing Dr. Madrid at [facility]. Scheduled next week. Can we request records? Thanks Genesis Peterson RN 08/16/2024 4:16 PM Signed Jarek's office is closed on [phone] Ailin Everett MA 08/17/2024 9:58 AM Signed I called and spoke with scheduling desk at Dr. Madrid's office. They will fax records over. Labs were printed from [facility]. Ailin Everett MA 08/20/2024 8:06 AM Signed [...] red rash; itching back of neck. Saw geophysical support specialist Date Reviewed: 07/20/2024 Reviewed by: Ratna Newberry LPN - Fully Assessed Reason for Visit: Request Outside Medical Records [[id number]] Prescriptions as of 08/20/2024 - omeprazole (PRILOSEC) [...] Encounter Status:Closed by AILIN EVERETT on 08/20/24 [facility] CNPShanika 08-06-2024 CNPN Telephone (FAMPTW) CONCEPCION DONALDSON ([id number]) 1940 F Date Time Provider Department 08/06/24 PRESTON HANEY FAMPTJuanpablo During your visit today, we recorded the following information about you: Kaci Dueñas 08/06/2024 4:15 PM Signed Concepcion is calling Preston Haney MD today [...] calling: self Call patient at: at home [phone] (home) [phone] (cell) Was an appointment scheduled: No Closing statement: Prior Authorization Calls: Thank you for calling [facility], your call will be returned within the next 24 hours or next business day. Kaci De La Rosa [facility] Yolie Collazo LPN 08/06/2024 4:41 PM Signed [...] red rash; itching back of neck. Saw geophysical support specialist Date Reviewed: 07/20/2024 Reviewed by: Ratna Newberry [...] [K58.9] 0 (more content not included)... Normal [facility] Gastroenterology Visit Repor ton 07-27-2024 Gastroenterology Visit Report [facility] Gastroenterology [address] [place] [address] OFFICE VISIT Date of Service: 07/27/24 MR#: [id number] Acct: [id number] Name: CONCEPCION DONALDSON Rep #: [id number] : 1940 Provider: Gavino Jay DO Age/Sex: 83/F Location: [facility] [place] Status: Signed Intake Vital Signs 09/06/23 [...] you fallen in the past year?: No [facility] Medical History Wears dentures Wears hearing aid [...] does not want to be constipated. OV 10.24- Pt reports she has spotting blood today. States she has a hx of hemorrhoids. Has a BM daily. Last colonoscopy was in 2017. Takes Miralax, mineral oil, Citrucel, super greens daily and omeprazole daily. EGD 05.30.24- Normal esophagus, non-bleeding gastric ulcer with no stigmata of bleeding Colon- Bleeding external and internal hemorrhoids, diverticulosis, congested mucosa OV 1..- Patient well since last visit. Has not [...] and w (more content not included)... Normal [facility] CNOVon 07-20-2024 CNOV Office Visit (INTMWS ) CONCEPCION DONALDSON ([id number]) 1940 F Date Time Provider Department 07/20/24 9:40 AM PRESTON HANEY INTMWS During your visit today, we recorded the following information about you: Temperature Pulse Respiration Blood pressure 97.2 degrees 77/minute 16/minute 152/82 Weight 71.4 kg Preston Haney MD 08/19/2024 1:21 AM Signed This note was created using NoteWriter. Subjective Concepcion Donaldson is a 83 year [...] drug eruption. She was evaluated by a geophysical support specialist, who diagnosed the rash as a drug [...] receiving treatment at a spine center in [place]. She reports that her symptoms are improving [...] OIL 1,0 (more content not included)... Normal [facility]20[facility]2024 [facility] MENDOZACONCEPCION Simeon ([id number]) 1940 F Date Time Provider Department 07/20/24 PRESTON HANEY During your visit today, we recorded the following information about you: Merlyn Pires 07/20/2024 12:10 PM Signed Patient will need an order placed for a consult to rheumatology, new provider starting in [place] by the end of the month and they would like to see her. Please contact patient when order is place so they can schedule. Thank you, Elisabeth Goayl, [place].[facility] 07/20/2024 3:20 PM Signed OV tofay with [...] red rash; itching back of neck. 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] Order(s):CONSULT TO RHEUM/IMMUN DISEASE [7221] Order #: [id number]: 1 FUTURE Prescriptions as of 07/20/2024 - [...] Status:Closed by DANA VARGAS on 07/20/24 Normal [facility] 25([place])D3 [facility] 2024 25-hydroxyvitamin D3 [Mass/Vol] 69.7 ng/mL Normal 31.0-80.0 [facility] Comment on above: Order Comment: Speci men Type: BLOOD SPECIMEN Ordering Facility: [facility] Address: [address] [place] [address] [place] [address] Performed By: #### 5 1265-5, 48786-9, 30966-9, 79859-3, 62752-8, 28061-8, 72370-9, 00483-8 #### [facility] CLIA [id number] [address] [place] [address] [place] CBC W Auto Differential pane l (Bld)on 07-12-2024 Basophils (Bld) [#/Vol] 0.04 10*3/uL Normal <0.11 [facility] Comment on above: Order Comment: Speci men Type: BLOOD SPECIMEN Ordering Facility: [facility] Address: [address] [place] [address] Performed By: #### 5 5-5, 59685-3, 10510-1, 53295-0, 58881-8, 82971-5, 34522-4, 35079-5 #### [facility] CLIA [id number] [address] [place] [address] [place] Basophils/100 WBC (Bld) 0.9 % Normal [facility] Comment on above: Order Comment: Speci men Type: BLOOD SPECIMEN Ordering Facility: [facility] Address: [address] [place] [address] Performed By: #### 5 1774-5, 48661-4, 40615-9, 74803-0, 61477-7, 31934-8, 53676-9, 41465-8 #### [facility] CLIA [id number] [address] [place] [address] [place] Differential cell count method Nom (Bld) Auto Normal [facility] Comment on above: Order Comment: Speci men Type: BLOOD SPECIMEN Ordering Facility: [facility] Address: [address] [place] [address] Performed By: #### 5 1775-5, 19380-9, 36738-1, 02445-2, 90058-8, 71844-6, 47246-0, 27255-4 #### [facility] CLIA [id number] [address] [place] [address] [place] Eosinophils (Bld) [#/Vol] 0.26 10*3/uL Normal <0.46 [facility] Comment on above: Order Comment: Speci men Type: BLOOD SPECIMEN Ordering Facility: [facility] Address: [address] [place] [address] Performed By: #### 5 1775-5, 29538-4, 89946-9, 13929-5, 53182-4, 07972-1, 08294-4, 48309-9 #### [facility] CLIA [id number] [address] [place] [address] [place] Eosinophils/100 WBC (Bld) 5.5 % Normal [facility] Comment on above: Order Comment: Speci men Type: BLOOD SPECIMEN Ordering Facility: [facility] Address: [address] [place] [address] Performed By: #### 5 1775-5, 90441-3, 65184-8, 63581-4, 54542-8, 82751-6, 68624-3, 13204-8 #### [facility] CLIA [id number] [address] [place] [address] [place] Erythrocyte distribution width (RBC) [Ratio] 13.2 % Normal 11.5-15.0 [facility] Comment on above: Order Comment: Speci men Type: BLOOD SPECIMEN Ordering Facility: [facility] Address: [address] [place] [address] Performed By: #### 5 1775-5, 04930-4, 77266-2, 84029-5, 25350-6, 72482-5, 06362-4, 45747-3 #### [facility] CLIA [id number] [address] [place] [address] [place] Hematocrit (Bld) [Volume fraction] 45.3 % Normal 36.0-46.0 [facility] Comment on above: Order Comment: Speci men Type: BLOOD SPECIMEN Ordering Facility: [facility] Address: [address] [place] [address] Performed By: #### 5 1775-5, 65131-5, 43531-4, 15381-4, 04435-3, 84279-7, 00060-5, 41972-6 #### [facility] CLIA [id number] [address] [place] [address] [place] Hemoglobin (Bld) [Mass/Vol] 15.5 g/dL Normal 11.5-15.5 [facility] Comment on above: Order Comment: Speci men Type: BLOOD SPECIMEN Ordering Facility: [facility] Address: [address] [place] [address] Performed By: #### 5 1775-5, 29526-5, 13944-7, 52650-4, 16345-6, 61402-2, 46657-1, 22938-8 #### [facility] CLIA [id number] [address] [place] [address] [place] Immature granulocytes (Bld) [#/Vol] 0.08 10*3/uL Normal <0.10 [facility] Comment on above: Order Comment: Speci men Type: BLOOD SPECIMEN Ordering Facility: [facility] Address: [address] [place] [address] Performed By: #### 5 1775-5, 40437-2, 90388-0, 27410-0, 35987-1, 42576-4, 09854-3, 27111-5 #### [facility] CLIA [id number] [address] [place] [address] [place] Immature granulocytes/100 WBC (Bld) 1.7 % Normal [facility] Comment on above: Order Comment: Speci men Type: BLOOD SPECIMEN Ordering Facility: [facility] Address: [address] [place] [address] Performed By: #### 5 1775-5, 50538-1, 23714-4, 76115-4, 44630-1, 83228-3, 88720-1, 65399-1 #### [facility] CLIA [id number] [address] [place] [address] [place] Lymphocytes (Bld) [#/Vol] 0.95 10*3/uL Low 1.00-4.00 [facility] Comment on above: Order Comment: Speci men Type: BLOOD SPECIMEN Ordering Facility: [facility] Address: [address] [place] [address] Performed By: #### 5 1775-5, 48115-9, 93423-1, 27152-7, 86800-4, 20480-6, 83224-9, 04305-8 #### [facility] CLIA [id number] [address] [place] [address] [place] Lymphocytes/100 WBC (Bld) 20.3 % Normal [facility] Comment on above: Order Comment: Speci men Type: BLOOD SPECIMEN Ordering Facility: [facility] Address: [address] [place] [address] Performed By: #### 5 1775-5, 17751-2, 39972-8, 01554-2, 98346-6, 09485-0, 32405-4, 08039-0 #### [facility] CLIA [id number] [address] [place] [address] [place] MCH (RBC) [Entitic mass] 29.6 pg Normal 26.0-34.0 [facility] Comment on above: Order Comment: Speci men Type: BLOOD SPECIMEN Ordering Facility: [facility] Address: [address] [place] [address] Performed By: #### 5 1775-5, 95572-0, 15149-2, 12053-5, 16510-5, 40159-7, 92495-6, 37245-6 #### [facility] CLIA [id number] [address] [place] [address] [place] MCHC (RBC) [Mass/Vol] 34.2 g/dL Normal 30.5-36.0 [facility] Comment on above: Order Comment: Speci men Type: BLOOD SPECIMEN Ordering Facility: [facility] Address: [address] [place] [address] Performed By: #### 5 1775-5, 82862-4, 05772-6, 94547-7, 67287-8, 56056-6, 05258-1, 87074-0 #### [facility] CLIA [id number] [address] [place] [address] [place] MCV (RBC) [Entitic vol] 86.5 fL Normal 80.0-100.0 [facility] Comment on above: Order Comment: Speci men Type: BLOOD SPECIMEN Ordering Facility: [facility] Address: [address] [place] [address] Performed By: #### 5 5-5, 11306-3, 97892-1, 36084-0, 14160-7, 05903-7, 33497-9, 30651-2 #### [facility] CLIA [id number] [address] [place] [address] [place] Monocytes (Bld) [#/Vol] 0.66 10*3/uL Normal <0.87 [facility] Comment on above: Order Comment: Speci men Type: BLOOD SPECIMEN Ordering Facility: [facility] Address: [address] [place] [address] Performed By: #### 5 1775-5, 48181-0, 99813-2, 20430-6, 17779-1, 01041-8, 80345-8, 21333-1 #### [facility] CLIA [id number] [address] [place] [address] [place] Monocytes/100 WBC (Bld) 14.1 % Normal [facility] Comment on above: Order Comment: Speci men Type: BLOOD SPECIMEN Ordering Facility: [facility] Address: [address] [place] [address] Performed By: #### 5 1775-5, 70613-9, 59073-4, 91613-6, 14421-1, 41337-3, 23067-4, 54355-1 #### [facility] CLIA [id number] [address] [place] [address] [place] Neutrophils (Bld) [#/Vol] 2.70 10*3/uL Normal 1.45-7.50 [facility] Comment on above: Order Comment: Speci men Type: BLOOD SPECIMEN Ordering Facility: [facility] Address: [address] [place] [address] Performed By: #### 5 1775-5, 71058-9, 63991-0, 38574-2, 01930-3, 54188-7, 23291-2, 25024-9 #### [facility] CLIA [id number] [address] [place] [address] [place] Neutrophils/100 WBC (Bld) 57.5 % Normal [facility] Comment on above: Order Comment: Speci men Type: BLOOD SPECIMEN Ordering Facility: [facility] Address: [address] [place] [address] Performed By: #### 5 1775-5, 47695-7, 99667-7, 88727-8, 96250-7, 48511-9, 17567-9, 31981-8 #### [facility] CLIA [id number] [address] [place] [address] [place] Nucleated RBC (Bld) [#/Vol] 10*3/uL Normal <0.01 [facility] Comment on above: Order Comment: Speci men Type: BLOOD SPECIMEN Ordering Facility: [facility] Address: [address] [place] [address] Performed By: #### 5 1775-5, 92996-2, 51063-8, 81157-5, 99194-1, 25072-2, 82962-4, 44191-5 #### [facility] CLIA [id number] [address] [place], [place] [address] [place] Nucleated RBC/100 WBC (Bld) [Ratio] 0.0 /100 WBC Normal [facility] Comment on above: Order Comment: Speci men Type: BLOOD SPECIMEN Ordering Facility: [facility] Address: [address] [place] [address] Performed By: #### 5 1775-5, 69722-0, 06177-2, 29840-3, 75723-0, 20757-7, 54803-0, 18439-9 #### [facility] CLIA [id number] [address] [place] [address] [place] Platelet mean volume (Bld) [Entitic vol] 10.4 fL Normal 9.0-12.7 [facility] Comment on above: Order Comment: Speci men Type: BLOOD SPECIMEN Ordering Facility: [facility] Address: [address] [place] [address] Performed By: #### 5 1775-5, 97256-7, 36496-4, 47361-1, 93629-6, 23232-6, 49427-9, 06808-0 #### [facility] CLIA [id number] [address] [place] [address] [place] Platelets (Bld) [#/Vol] 192 10*3/uL Normal 150-400 [facility] Comment on above: Order Comment: Speci men Type: BLOOD SPECIMEN Ordering Facility: [facility] Address: [address] [place] [address] Performed By: #### 5 1775-5, 26790-0, 30765-9, 01800-7, 46796-2, 90586-3, 97232-1, 06646-4 #### [facility] CLIA [id number] [address] [place] [address] [place] RBC (Bld) [#/Vol] 5.24 10*6/uL High 3.90-5.20 [facility] Comment on above: Order Comment: Speci men Type: BLOOD SPECIMEN Ordering Facility: [facility] Address: [address] [place] [address] Performed By: #### 5 1775-5, 49415-4, 97269-5, 76038-9, 75998-5, 13756-6, 89091-4, 85562-9 #### [facility] CLIA [id number] [address] [place] [address] [place] WBC (Bld) [#/Vol] 4.69 10*3/uL Normal 3.70-11.00 [facility] Comment on above: Order Comment: Speci men Type: BLOOD SPECIMEN Ordering Facility: [facility] Address: [address] [place] [address] Performed By: #### 5 1775-5, 93418-5, 89420-0, 61026-6, 52249-7, 64330-6, 11161-6, 37690-5 #### [facility] CLIA [id number] [address] [place], [place] [address] [place] Comprehensive metabolic 2000 panelon 07-12-2024 Albumin [Mass/Vol] 4.4 g/dL Normal 3.9-4.9 [facility] Comment on above: Order Comment: Speci men Type: BLOOD SPECIMEN Ordering Facility: [facility] Address: [address] [place] [address] Performed By: #### 5 1775-5, 78625-7, 36484-6, 66829-1, 26485-9, 00677-5, 32993-4, 53600-8 #### [facility] CLIA [id number] [address] [place], [place] [address] [place] ALP [Catalytic activity/Vol] 54 U/L Normal 34-123 [facility] Comment on above: Order Comment: Speci men Type: BLOOD SPECIMEN Ordering Facility: [facility] Address: [address] [place] [address] Performed By: #### 5 1775-5, 28805-9, 72007-7, 23117-8, 23304-3, 92152-7, 20933-3, 96415-0 #### [facility] CLIA [id number] [address] [id number] [place] ALT [Catalytic activity/Vol] 13 U/L Normal 7-38 [facility] Comment on above: Order Comment: Speci men Type: BLOOD SPECIMEN Ordering Facility: [facility] Address: [address] [place] [address] Performed By: #### 5 1775-5, 94972-0, 99229-6, 58765-4, 17615-7, 01571-7, 23581-6, 65874-7 #### [facility] CLIA [id number] [address] [place] [address] [place] Anion gap [Moles/Vol] 14 mmol/L Normal 8-15 [facility] Comment on above: Order Comment: Speci men Type: BLOOD SPECIMEN Ordering Facility: [facility] Address: [address] [place] [address] Performed By: #### 5 5-5, 09551-6, 34639-6, 29582-9, 77146-9, 38942-2, 47835-9, 96138-8 #### [facility] CLIA [id number] [address] [place], [place] [address] [place] AST [Catalytic activity/Vol] 23 U/L Normal 13-35 [facility] Comment on above: Order Comment: Speci men Type: BLOOD SPECIMEN Ordering Facility: [facility] Address: [address] [id number] Performed By: #### 5 1775-5, 33081-4, 63935-4, 39068-8, 54182-8, 43059-7, 36029-7, 62185-9 #### [facility] CLIA [id number] [address] [place], [place] [address] [place] Bilirubin [Mass/Vol] 0.5 mg/dL Normal 0.2-1.3 [facility] Comment on above: Order Comment: Speci men Type: BLOOD SPECIMEN Ordering Facility: [facility] Address: [address] [place] [address] Performed By: #### 5 1775-5, 05521-1, 83889-4, 34815-0, 52120-5, 95604-4, 60755-4, 93568-0 #### [facility] CLIA [id number] [address] [place] [address] [place] Calcium [Mass/Vol] 10.2 mg/dL Normal 8.5-10.2 [facility] Comment on above: Order Comment: Speci men Type: BLOOD SPECIMEN Ordering Facility: [facility] Address: [address] [place] [address] Performed By: #### 5 1775-5, 07370-3, 50783-8, 81808-4, 91540-7, 16068-3, 34376-9, 37544-6 #### [facility] CLIA [id number] [address] [place] [address] [place] Chloride [Moles/Vol] 93 mmol/L Low 98-107 [facility] Comment on above: Order Comment: Speci men Type: BLOOD SPECIMEN Ordering Facility: [facility] Address: [address] [place] [address] Performed By: #### 5 1775-5, 98190-6, 80799-5, 26385-0, 28706-0, 41106-0, 24333-2, 88135-9 #### [facility] CLIA [id number] [address] [place] [address] [place] CO2 [Moles/Vol] 27 mmol/L Normal 22-30 [facility] Comment on above: Order Comment: Speci men Type: BLOOD SPECIMEN Ordering Facility: [facility] Address: [address], [place] [address] Performed By: #### 5 1775-5, 05306-3, 04720-2, 58854-5, 41243-9, 45534-4, 36366-8, 69913-4 #### [facility] CLIA [id number] [address] [place], [place] [address] [place] Creatinine [Mass/Vol] 0.84 mg/dL Normal 0.58-0.96 [facility] Comment on above: Order Comment: Speci men Type: BLOOD SPECIMEN Ordering Facility: [facility] Address: [address] [place] [address] Performed By: #### 5 1775-5, 99477-7, 96806-9, 17096-0, 93891-7, 46669-2, 14054-7, 85555-3 #### [facility] CLIA [id number] [address] [place] [address] [place] Creatinine and Glomerular filtration rate.predicted panel (S/P/Bld) 69 mL/min/1.73m??? Normal >=60 [facility] Comment on above: Order Comment: Kristofer dickinson Type: BLOOD SPECIMEN Ordering Facility: [facility] Address: [address] [place] [address] Result Comment: Sravanthi mated Glomerular Filtration Rate [...] accurately reflect actual GFR. Performed By: #### 5 1775-5, 56881-8, 86298-6, 32814-8, 71292-8, 80137-5, 92441-0, 03134-1 #### [facility] CLIA [id number] [address] [place] [address] [place] Glucose [Mass/Vol] 101 mg/dL High 74-99 [facility] Comment on above: Order Comment: Speci men Type: BLOOD SPECIMEN Ordering Facility: [facility] Address: [address] [place] [address] Result Comment: The [place] [employer] Association (ADA) provides guidance for cutoff [...] Standards of Medical Care in Diabetes 2016, [place] [employer]. Diabetes Care. 2016.39(Suppl 1). Performed By: #### 5 1775-5, 99352-9, 10363-0, 47286-1, 31755-2, 47257-5, 95579-7, 47234-1 #### [facility] CLIA [id number] [address] [place] [address] [place] Potassium [Moles/Vol] 3.5 mmol/L Low 3.7-5.1 [facility] Comment on above: Order Comment: Kristofer dickinson Type: BLOOD SPECIMEN Ordering Facility: [facility] Address: [address] [place] [address] Performed By: #### 5 1775-5, 40161-9, 89380-0, 30285-0, 90285-9, 87110-3, 84654-1, 02775-8 #### [facility] CLIA [id number] [address] [place], [place] [address] [place] Protein [Mass/Vol] 7.1 g/dL Normal 6.3-8.0 [facility] Comment on above: Order Comment: Kristofer dickinson Type: BLOOD SPECIMEN Ordering Facility: [facility] Address: [address] [place] [address] Performed By: #### 5 1775-5, 97849-8, 52306-4, 25528-2, 42644-8, 54808-0, 35883-2, 51176-7 #### [facility] CLIA [id number] [address] [place] [address] [place] Sodium [Moles/Vol] 134 mmol/L Low 136-144 [facility] Comment on above: Order Comment: Speci men Type: BLOOD SPECIMEN Ordering Facility: [facility] Address: [address] [place] [address] Performed By: #### 5 1775-5, 13037-0, 47796-8, 87280-8, 40065-2, 11787-6, 11636-0, 13493-5 #### [facility] CLIA [id number] [address] [place] [address] [place] Urea nitrogen [Mass/Vol] 18 mg/dL Normal 7-21 [facility] Comment on above: Order Comment: Speci men Type: BLOOD SPECIMEN Ordering Facility: [facility] Address: [address] [place] [address] Performed By: #### 5 1775-5, 17791-3, 94353-5, 84254-4, 51489-1, 09728-8, 76032-0, 54745-7 #### [facility] CLIA [id number] [address] [place] [address] [place] HbA1c (Bld)on 07-12-2024 Average glucose Estimated from glycated hemoglobin (Bld) [Mass/Vol] 111 mg/dL Normal [facility] Comment on above: Order Comment: Speci men Type: BLOOD SPECIMEN Ordering Facility: [facility] Address: [address] [place] [address] Result Comment: eAG: (Estimated average glucose) is a calculated value from HgbA1c and is sales representative consultant of the average blood glucose level in the last 2-3 month period. Performed By: #### 5 5454-3 #### [facility] CLIA [id number] [address] [place] [id number] [place] HbA1c (Bld) [Mass fraction] 5.5 % Normal 4.3-5.6 [facility] Comment on above: Order Comment: Kristofer dickinson Type: BLOOD SPECIMEN Ordering Facility: [facility] Address: [address] [place] [address] Result Comment: [place] [employer] guidelines indicate that patients with HgbA1c in the range 5.7-6.4% are at increased risk for development of diabetes, and intervention by lifestyle modification may be beneficial. HgbA1c greater or equal to 6.5% is considered diagnostic of diabetes. Performed By: #### 5 5454-3 #### [facility] CLIA [id number] [address] [place] [address] [place] Lipid 1996 panelon 5 Cholesterol [Mass/Vol] 208 mg/dL High <200 [facility] Comment on above: Order Comment: Kristofer dickinson Type: BLOOD SPECIMEN Ordering Facility: [facility] Address: [address] [place] [address] Result Comment: <200 mg/dL, Desirable 200-239 mg/dL, Borderline high >239 mg/dL, High Performed By: #### 5 1775-5, 42847-0, 28062-4, 43457-0, 29395-2, 90785-3, 75620-4, 20034-7 #### [facility] CLIA [id number] [address] [place] [address] [place] Cholesterol in HDL [Mass/Vol] 61 mg/dL Normal >39 [facility] Comment on above: Order Comment: Kristofer dickinson Type: BLOOD SPECIMEN Ordering Facility: [facility] Address: [address] [place] [address] Result Comment: 40-5 9 mg/dL, Acceptable >59 mg/dL, High: Negative risk factor for coronary heart disease <40 mg/dL, Low: Positive risk factor for coronary heart disease Performed By: #### 5 1775-5, 67579-8, 20417-6, 27718-7, 15006-2, 38986-2, 62532-0, 69807-9 #### [facility] CLIA [id number] [address] [place] [address] [place] Cholesterol in LDL [Mass/Vol] 84 mg/dL Normal <100 [facility] Comment on above: Order Comment: Jenniferi teena Type: BLOOD SPECIMEN Ordering Facility: [facility] Address: [address] [place] [address] Result Comment: <100 mg/dL, Optimal 100-129 mg/dL, Near optimal/above optimal 130-159 mg/dL, Borderline high 160-189 mg/dL, High >189 mg/dL, Very high Secondary prevention optimal LDL Cholesterol levels are recommended to be < 70 mg/dL Performed By: #### 5 1775-5, 24243-0, 98210-7, 01527-7, 73746-1, 94057-1, 73125-9, 04475-5 #### [facility] CLIA [id number] [address] [place] [address] [place] Cholesterol in LDL/Cholesterol in HDL [Mass ratio] 1.38 {ratio} Normal <2.54 [facility] Comment on above: Order Comment: Speci men Type: BLOOD SPECIMEN Ordering Facility: [facility] Address: [address] [place] [address] Result Comment: Refe rence: 1. National Cholesterol Education Program ATP III Guideline At-A-Glance Quick Desk Reference: National Heart, Lung, and Blood [place]. National Institutes of Health. 2001: NIH Publication No. 01-3305. 2. An International Atherosclerosis Society position paper: global recommendations for the management of dyslipidemia: executive summary, Atherosclerosis. 2014: 232(2):410-413. Performed By: #### 5 1775-5, 56877-8, 48669-4, 20614-7, 57589-9, 83540-6, 14877-9, 82605-7 #### [facility] CLIA [id number] [address] [place], [place] [id number] [place] Cholesterol in VLDL [Mass/Vol] 63 mg/dL High <30 [facility] Comment on above: Order Comment: Jenniferi men Type: BLOOD SPECIMEN Ordering Facility: [facility] Address: [address] [place] [address] Performed By: #### 5 1775-5, 44359-5, 13278-2, 47758-9, 70243-2, 78835-7, 93901-8, 06181-4 #### [facility] CLIA [id number] [address] [place] [address] [place] Cholesterol non HDL [Mass/Vol] 147 mg/dL High <130 [facility] Comment on above: Order Comment: Kristofer men Type: BLOOD SPECIMEN Ordering Facility: [facility] Address: [address] [place] [address] Result Comment: <130 mg/dL, Optimal 130-159 mg/dL, Near optimal/above optimal 160-189 mg/dL, Borderline high 190-219 mg/dL, High >219 mg/dL, Very high Secondary prevention optimal non HDL Cholesterol levels are recommended to be <100 mg/dL Performed By: #### 5 1775-5, 06536-5, 87492-8, 46181-2, 98648-3, 76147-2, 78643-5, 10978-5 #### [facility] CLIA [id number] [address] [place] [address] [place] Cholesterol.total/Cho lesterol in HDL [Mass ratio] 3.41 {ratio} Normal <5.10 [facility] Comment on above: Order Comment: Speci men Type: BLOOD SPECIMEN Ordering Facility: [facility] Address: [address] [place] [address] Performed By: #### 5 1775-5, 08000-6, 24098-3, 14765-9, 39997-7, 01025-8, 59072-1, 27321-9 #### [facility] CLIA [id number] [address] [place], [place] [id number] [place] FASTING TIME 12 hrs Normal [facility] Comment on above: Order Comment: Speci men Type: BLOOD SPECIMEN Ordering Facility: [facility] Address: [address] [place] [address] Performed By: #### 5 1775-5, 66231-5, 10555-4, 58477-1, 14987-6, 31805-6, 24372-4, 22049-6 #### [facility] CLIA [id number] [address] [place] [address] [place] Triglyceride [Mass/Vol] 314 mg/dL High <150 [facility] Comment on above: Order Comment: Speci men Type: BLOOD SPECIMEN Ordering Facility: [facility] Address: [address] [place] [address] Result Comment: <150 mg/dL, Normal 150-199 mg/dL, Borderline high 200-499 mg/dL, High >499 mg/dL, Very high Performed By: #### 5 1775-5, 30594-0, 54314-2, 09767-7, 59862-1, 67148-4, 75571-2, 58369-2 #### [facility] CLIA [id number] [address] [place] [address] [place] Colonoscopy Reporton 024 Colonoscopy Report [facility] Medical Records Department [address] [place] [address] Colonoscopy Report MR#: [id number] Acct: [id number] Name: CONCEPCION DONALDSON Rep #: [id number] : 1940 83 From: Gavino Jay DO PCP: Dr. Preston Haney MD Status:[facility] Patient Name: Concepcion Donaldson Procedure Date: 05/30/2024 10:53 AM Date of : 1940 Age: 83 Procedure: Colonoscopy Indications: Chronic diarrhea, Hematochezia Providers: Gavino Jay DO Referring MD: Gavino [...] present medications. Procedure Code(s): --- Professional --- 08773, 59, Colonoscopy, flexible; with biopsy, single or multiple 76923, 51, Destruction of internal hemorrhoid(s) by thermal energy (eg, infrared coagulation, cautery, radiofrequency) CPT copyright 2021 [employer]. All rights reserved. The codes documented in this report are prelimi (more content not included)... Normal [facility] EGD Reporton 05-30-2024 EGD Report [facility] Medical Records Department [address] [place] [address] EGD Report MR#: [id number] Acct: [id number] Name: CONCEPCION DONALDSON Rep #: [id number] : 1940 83 From: Gavino Jay DO PCP: Dr. Preston Haney MD Status:[facility] Patient Name: Concepcion Donaldson Procedure Date: [...] present medications. Procedure Code(s): --- Professional --- 38747, Esophagogastroduodenosc opy, flexible, transoral; with biopsy, single or multiple CPT copyright 2021 [employer]. All rights reserved. The codes documented in this report are preliminary and upon stitcher utility review may be revised to meet current compliance requirements. Gavino Jay DO 05/30/2024 11:29:50 AM This report has been signed electronically. Number of Addenda: 0 Note Initiated On: 05/30/2024 10:44 AM 05/30/24 1130 Date Gavino Sextonigner Signature: Date (if indicated) CC: Dr. Preston Haney MD; Gavino Jay DO Date Dictated: 05/30/24 1044 Date Transcribed: Board Writer: SHILA Signed Normal [facility] H Pylori (initial)on 024 H Pylori (initial) --- Patient Age/Sex Location Account Attending Physician CONCEPCION DONALDSON 83/F EN [id number] Gavino Jay DO Specimen: [id number] Received: 05/31/24 Status: IAN Torres Num: [id number] Spec Type: IMMUNO Subm Dr: Gavino Jay, PHYSICIAN INSTITUTION [place] [address] SPECIMEN INFORMATION: Tissue Source: A - Gastric body biopsy Clinical Info: Rectal hemorrhage Specimen Number: [id number] CPT code: 23379 METHODOLOGY: Deparaffinized sections of prefer/formalin-fixed tissue or [...] developed and their performance characteristics determined by [facility]. They may not have been cleared or approved by the U.S. Food and Drug Administration. The FDA has determined that such clearance or approval is not necessary. The above immunohistochemical/delmis Maria D markers are ordered and reviewed by the Pathologist. INTERPRETATION: A. Gastric body, biopsy: Negative for Helicobacter pylori organisms. 06/01/2024 Signed (signature on file) Dr. Vic Zamora MD 06/01/24 1317 Normal [facility] Comment on above: Performed By: #### P H.PYLORI #### [facility] [address] [facility] [place], [address] MR/POSTOP.ANEon 05-30-2024 MR/POSTOP.ANE [facility] Medical Records Department [address] [place] [address] Anesthesia Postop Eval I 05/30/24 1129 MR#: [id number] Acct: [id number] Name: CONCEPCION DONALDSON Rep #: [id number] : 1940 83 From: Marin Estrada PCP: Dr. Preston Haney MD Status:REG SDC Y Race: C Location: [place] [address] Anesthesia: Postop Eval I Current Vital Signs [...] Marin Fong Signature: Date CC: Signed Normal [facility] MR/KNWBUBDC2mg 05-30-2024 MR/POSTOPAN2 [facility] Medical Records Department [address] [place] [address] Anesthesia Postop Eval II 05/30/24 1152 MR#: [id number] Acct: [id number] Name: CONCEPCION DONALDSON Rep #: [id number] : 1940 83 From: Casey Kemp MD PCP: Dr. Preston Haney MD Status:REG SDC Y Race: C Location: [place] [address] Anesthesia Postop Eval I Sum Postop Eval [...] No Vomiting: No 05/30/24 1152 Date Casey Fong Signature: Date CC: Signed Normal [facility] Special Stain Group Ion 11-2 Special Stain Group I ----- Patient Age/Sex Location Account Attending Physician MENDOZACONCEPCION A 83/F EN [id number] Gavino Jay DO Specimen: [id number] Received: 05/30/24 Status: IAN Melissa Num: [id number] Spec Type: EGD BIOPSY Subm Dr: Gavino Jay DO HEADER OPERATION: Colonoscopy [...] mucosa with focal hyperplastic and reactive changes. SJ. 06/01/2024 COMMENT A. The results of immunohistochemistry for Helicobacter pylori will be reported separately ([id number]). Special stains for acid fast bacilli and [...] cassette. Patient Age/Sex Location Account Attending Physician CONCEPCION DONALDSON 83/F EN [id number] Gavino Jay DO C. Received in fixative [...] specimen is totally submitted in one cassette. SJ 05/31/2024 TC:3 CPT:41096c0,72777m1 Patient Age/Sex Location Account Attending Physician CONCEPCION DONALDSON 83/F ADITHYA [id number] Gavino Jay DO Signed (signature on file) Dr. Vic Zamora MD 06/01/24 1309 Normal [facility] Comment on above: Performed By: #### P SSI #### [facility] [address] [place], [address] CBC W/Diff, Automatedon 11 Absolute Lymph 0.86 X10 3/uL Normal 0.83-4.51 [facility] Comment on above: Performed By: #### L 500.4050, L100.0100 #### [facility] [address] [place], [address] Absolute Neut 3.3 X10 3/uL Normal 2.0-7.7 [facility] Comment on above: Performed By: #### L 500.4050, L100.0100 #### [facility] [address] [place], [address] Basophils/100 WBC (Bld) 0.8 % Normal 0-1 [facility] Comment on above: Performed By: #### L 500.4050, L100.0100 #### [facility] [address] [place], [address] Eosinophils/100 WBC (Bld) 3.8 % Normal 0-5 [facility] Comment on above: Performed By: #### L 500.4050, L100.0100 #### [facility] [address] [place], [address] Erythrocyte distribution width (RBC) [Ratio] 15.0 % High 11.6-14.6 [facility] Comment on above: Performed By: #### L 500.4050, L100.0100 #### [facility] [address] [place], [address] Hematocrit (Bld) [Volume fraction] 44.0 % Normal 37-47 [facility] Comment on above: Performed By: #### L 500.4050, L100.0100 #### [facility] [address] [place], [address] Hemoglobin (Bld) [Mass/Vol] 14.4 g/dL Normal 12.0-15.0 [facility] Comment on above: Performed By: #### L 500.4050, L100.0100 #### [facility] [address] [place], [address] IG% 1.000 High 0.0-0.9 [facility] Comment on above: Result Comment: IG% - Immature Granulocytes (promyelocytes, myelocytes and metamyelocytes) > 1% indicates that a LEFT SHIFT is Present. Performed By: #### L 500.4050, L100.0100 #### [facility] [address] [place], [address] Lymphocytes/100 WBC (Bld) 17.0 % Low 19-41 [facility] Comment on above: Performed By: #### L 500.4050, L100.0100 #### [facility] [address] [place], [address] MCH (RBC) [Entitic mass] 29.3 pg Normal 27.0-32.0 [facility] Comment on above: Performed By: #### L 500.4050, L100.0100 #### [facility] [address] [place], [address] MCHC (RBC) [Mass/Vol] 32.7 g/dL Normal 32-36 [facility] Comment on above: Performed By: #### L 500.4050, L100.0100 #### [facility] [address] [place], [address] MCV (RBC) [Entitic vol] 89.4 fL Normal 81-99 [facility] Comment on above: Performed By: #### L 500.4050, L100.0100 #### [facility] [address] [place], [address] Monocytes/100 WBC (Bld) 12.8 % High 0-10 [facility] Comment on above: Performed By: #### L 500.4050, L100.0100 #### [facility] [address] [place], [address] Neutrophils/100 WBC (Bld) 64.6 % Normal 47-70 [facility] Comment on above: Performed By: #### L 500.4050, L100.0100 #### [facility] [address] [place], [address] Nucleated RBC (Bld) [#/Vol] 0 10*3/uL Normal 0-5 [facility] Comment on above: Performed By: #### L 500.4050, L100.0100 #### [facility] [address] [place], [address] Platelet mean volume (Bld) [Entitic vol] 11.4 fL Normal 6.2-12.0 [facility] Comment on above: Performed By: #### L 500.4050, L100.0100 #### [facility] [address] [place], [address] Platelets (Bld) [#/Vol] 196 10*3/uL Normal 150-450 [facility] Comment on above: Performed By: #### L 500.4050, L100.0100 #### [facility] [address] [place], [address] RBC (Bld) [#/Vol] 4.92 10*6/uL Normal 4.2-5.4 [facility] Comment on above: Performed By: #### L 500.4050, L100.0100 #### [facility] [address] [place], [address] RDW SD 48.2 fl High 35.1-43.9 [facility] Comment on above: Performed By: #### L 500.4050, L100.0100 #### [facility] [address] [place], [address] WBC (Bld) [#/Vol] 5.1 10*3/uL Normal 4.4-11.0 [facility] Comment on above: Performed By: #### L 500.4050, L100.0100 #### [facility] [address] [place], [address] Comprehensive Metabolic Prof ilon 05-25-2024 Albumin [Mass/Vol] 3.9 g/dL Normal 3.2-5.0 [facility] Comment on above: Performed By: #### P SSI #### [facility] [address] [place], [address] Albumin/Globulin [Mass ratio] 1.1 {ratio} Normal 0.9-2.4 [facility] Comment on above: Performed By: #### P SSI #### [facility] [address] [place], [address] ALK P 48 U/L Normal 45-117 [facility] Comment on above: Performed By: #### P SSI #### [facility] [address] [place], [address] ALT [Catalytic activity/Vol] 25 U/L Normal 13-56 [facility] Comment on above: Performed By: #### P SSI #### [facility] [address] [place], [address] AST [Catalytic activity/Vol] 22 U/L Normal 15-37 [facility] Comment on above: Performed By: #### P SSI #### [facility] [address] [place], [address] Bilirubin [Mass/Vol] 0.50 mg/dL Normal 0.20-1.00 [facility] Comment on above: Result Comment: For patients on eltrombopag therapy, use of Dimension [place] TBIL is not recommended. Performed By: #### P SSI #### [facility] [address] [place], [address] BUN/CRE 21.6 RATIO High 10-20 [facility] Comment on above: Performed By: #### P SSI #### [facility] [address] [place], [address] CA,Total 9.9 mg/dL Normal 8.5-10.1 [facility] Comment on above: Performed By: #### P SSI #### [facility] [address] [place], [address] Chloride [Moles/Vol] 93 mmol/L Low 98-107 [facility] Comment on above: Performed By: #### P SSI #### [facility] [address] [place], [address] CO2 [Moles/Vol] 30.0 mmol/L Normal 21.0-32.0 [facility] Comment on above: Performed By: #### P SSI #### [facility] [address] [place], [address] Creatinine [Mass/Vol] 0.84 mg/dL Normal 0.55-1.02 [facility] Comment on above: Result Comment: The validity of the calculated GFR GFRAA in patients over 70 years has not been determined. Clinical correlation is essential. Performed By: #### P SSI #### [facility] [address] [place], [address] EST GFR - AA 84 mL/min Normal >60 [facility] Comment on above: Result Comment: Afri can [place] GFR Calc Performed By: #### P SSI #### [facility] [address] [place], [address] GAP 6 Normal 5-15 [facility] Comment on above: Performed By: #### P SSI #### [facility] [address] [place], [address] GFR/1.73 sq M.predicted among non-blacks MDRD (S/P/Bld) [Vol rate/Area] 69 mL/min/{1.73_m2} Normal >60 [facility] Comment on above: Result Comment: Non- GFR Calc Performed By: #### P SSI #### [facility] [address] [place], [address] Globulin (S) [Mass/Vol] 3.7 g/dL Normal 2.2-4.2 [facility] Comment on above: Performed By: #### P SSI #### [facility] [address] [place], [address] Glucose [Mass/Vol] 88 mg/dL Normal 74-106 [facility] Comment on above: Performed By: #### P SSI #### [facility] [address] [place], [address] Potassium [Moles/Vol] 3.7 mmol/L Normal 3.5-5.1 [facility] Comment on above: Performed By: #### P SSI #### [facility] [address] [place], [address] Sodium [Moles/Vol] 128 mmol/L Low 136-145 [facility] Comment on above: Performed By: #### P SSI #### [facility] [address] [place], [address] T PROT 7.6 g/dL Normal 6.4-8.2 [facility] Comment on above: Performed By: #### P SSI #### [facility] [address] [place], [place], [address] Urea nitrogen [Mass/Vol] 18 mg/dL Normal 7-18 [facility] Comment on above: Performed By: #### P SSI #### [facility] [address] [place], [place], [address] CNOVon 04-24-2024 CNOV Office Visit (INTMWS ) CONCEPCION DONALDSON ([id number]) 1940 F Date Time Provider Department 04/24/24 10:20 AM BYRON SUTTON INTMWS During your visit today, we recorded the following information about you: Pulse Respiration Blood pressure Weight 68/minute 16/minute 130/70 70.6 kg Height 1.607 m Byron Sutton APRN.SUPERVISOR [employer]ING 04/24/2024 11:10 AM Signed Concepcion Donaldson is [...] Outside specialists seen: rheumatology, general surgery, urogyn, training project manager, urology, spine center Medical/Family history review Reviewed [...] ICD10: M15.0 Following with rheum. Byron Sutton APRN.Byron Robison APRN.CNP 04/24/2024 10:29 AM Signed Screening schedule The following prevention plan is recommended: Shingrix Vaccine(2 of 3) due on 07/06/2013 RSV Vaccine(1 - 1-dose 75+ series) Never done Influenza Vaccine(1) due on 03/11/2024 Covid-19 Vaccine(2023-25 season) due on 03/11/2024 WHAT YOU CAN [...] review all the medicines you take, even kema-unh-iweqwop medicines. As you get older, the way [...] shower floors. (more content not included)... Normal [facility] Gastroenterology Visit Repor ton 04-20-2024 Gastroenterology Visit Report [facility] [address] [place] [address] OFFICE VISIT Date of Service: 04/20/24 MR#: [id number] Acct: [id number] Name: CONCEPCION DONALDSON Rep #: [id number] : 1940 Provider: BETH yip Age/Sex: 83/F Location: [facility] Status: Signed Intake Vital Signs 09/06/23 09:33 Height 5 ft 3 in Weight: 160 lb BMI 28.3 Intake Visit Reasons: Rectal bleeding Chief Complaint: follow up for c/o rectal bleeding Resin Filterer Required: No Is patient in pain?: No [...] appearing, comfortable (more content not included)... Normal [facility] CBC W/Diff, Automatedon 03-11 Absolute Lymph 1.00 X10 3/uL Normal 0.83-4.51 [facility] Comment on above: Performed By: #### L 500.4050, L100.0100 #### [facility] [address] [place], [address] Absolute Neut 3.2 X10 3/uL Normal 2.0-7.7 [facility] Comment on above: Performed By: #### L 500.4050, L100.0100 #### [facility] [address] [place], [address] Basophils/100 WBC (Bld) 1.0 % Normal 0-1 [facility] Comment on above: Performed By: #### L 500.4050, L100.0100 #### [facility] [address] [place], [address] Eosinophils/100 WBC (Bld) 4.9 % Normal 0-5 [facility] Comment on above: Performed By: #### L 500.4050, L100.0100 #### [facility] [address] [place], [address] Erythrocyte distribution width (RBC) [Ratio] 13.9 % Normal 11.6-14.6 [facility] Comment on above: Performed By: #### L 500.4050, L100.0100 #### [facility] [address] [place], [address] Hematocrit (Bld) [Volume fraction] 42.2 % Normal 37-47 [facility] Comment on above: Performed By: #### L 500.4050, L100.0100 #### [facility] [address] [place], [address] Hemoglobin (Bld) [Mass/Vol] 14.3 g/dL Normal 12.0-15.0 [facility] Comment on above: Performed By: #### L 500.4050, L100.0100 #### [facility] [address] [place], [address] IG% 0.600 Normal 0.0-0.9 [facility] Comment on above: Result Comment: IG% - Immature Granulocytes (promyelocytes, myelocytes and metamyelocytes) > 1% indicates that a LEFT SHIFT is Present. Performed By: #### L 500.4050, L100.0100 #### [facility] [address] [place], [address] Lymphocytes/100 WBC (Bld) 19.6 % Normal 19-41 [facility] Comment on above: Performed By: #### L 500.4050, L100.0100 #### [facility] [address] [place], [address] MCH (RBC) [Entitic mass] 28.9 pg Normal 27.0-32.0 [facility] Comment on above: Performed By: #### L 500.4050, L100.0100 #### [facility] [address] [place], [address] MCHC (RBC) [Mass/Vol] 33.9 g/dL Normal 32-36 [facility] Comment on above: Performed By: #### L 500.4050, L100.0100 #### [facility] [address] [place], [address] MCV (RBC) [Entitic vol] 85.3 fL Normal 81-99 [facility] Comment on above: Performed By: #### L 500.4050, L100.0100 #### [facility] [address] [place], [address] Monocytes/100 WBC (Bld) 11.2 % High 0-10 [facility] Comment on above: Performed By: #### L 500.4050, L100.0100 #### [facility] [address] [place], [address] Neutrophils/100 WBC (Bld) 62.7 % Normal 47-70 [facility] Comment on above: Performed By: #### L 500.4050, L100.0100 #### [facility] [address] [place], [address] Nucleated RBC (Bld) [#/Vol] 0 10*3/uL Normal 0-5 [facility] Comment on above: Performed By: #### L 500.4050, L100.0100 #### [facility] [address] [place], [address] Platelet mean volume (Bld) [Entitic vol] 11.1 fL Normal 6.2-12.0 [facility] Comment on above: Performed By: #### L 500.4050, L100.0100 #### [facility] [address] [place], [address] Platelets (Bld) [#/Vol] 171 10*3/uL Normal 150-450 [facility] Comment on above: Performed By: #### L 500.4050, L100.0100 #### [facility] [address] [place], [address] RBC (Bld) [#/Vol] 4.95 10*6/uL Normal 4.2-5.4 [facility] Comment on above: Performed By: #### L 500.4050, L100.0100 #### [facility] [address] [place], [address] RDW SD 42.6 fl Normal 35.1-43.9 [facility] Comment on above: Performed By: #### L 500.4050, L100.0100 #### [facility] [address] [place], [address] WBC (Bld) [#/Vol] 5.1 10*3/uL Normal 4.4-11.0 [facility] Comment on above: Performed By: #### L 500.4050, L100.0100 #### [facility] [address] [place], [address] Comprehensive Metabolic Prof il 03-27-2024 Albumin [Mass/Vol] 3.6 g/dL Normal 3.2-5.0 [facility] Comment on above: Performed By: #### L 500.4050, L100.0100 #### [facility] [address] [place], [address] Albumin/Globulin [Mass ratio] 1.0 {ratio} Normal 0.9-2.4 [facility] Comment on above: Performed By: #### L 500.4050, L100.0100 #### [facility] [address] [place], [address] ALK P 43 U/L Low 45-117 [facility] Comment on above: Performed By: #### L 500.4050, L100.0100 #### [facility] [address] [place], [address] ALT [Catalytic activity/Vol] 20 U/L Normal 13-56 [facility] Comment on above: Performed By: #### L 500.4050, L100.0100 #### [facility] [address] [place], [address] AST [Catalytic activity/Vol] 23 U/L Normal 15-37 [facility] Comment on above: Performed By: #### L 500.4050, L100.0100 #### [facility] [address] [place], [address] Bilirubin [Mass/Vol] 0.60 mg/dL Normal 0.20-1.00 [facility] Comment on above: Result Comment: For patients on eltrombopag therapy, use of Dimension [place] TBIL is not recommended. Performed By: #### L 500.4050, L100.0100 #### [facility] [address] [place], [address] BUN/CRE 16.3 RATIO Normal 10-20 [facility] Comment on above: Performed By: #### L 500.4050, L100.0100 #### [facility] [address] [place], [address] CA,Total 9.8 mg/dL Normal 8.5-10.1 [facility] Comment on above: Performed By: #### L 500.4050, L100.0100 #### [facility] [address] [place], [address] Chloride [Moles/Vol] 97 mmol/L Low 98-107 [facility] Comment on above: Performed By: #### L 500.4050, L100.0100 #### [facility] [address] [place], [address] CO2 [Moles/Vol] 25.0 mmol/L Normal 21.0-32.0 [facility] Comment on above: Performed By: #### L 500.4050, L100.0100 #### [facility] [address] [place], [address] Creatinine [Mass/Vol] 0.92 mg/dL Normal 0.55-1.02 [facility] Comment on above: Result Comment: The validity of the calculated GFR GFRAA in patients over 70 years has not been determined. Clinical correlation is essential. Performed By: #### L 500.4050, L100.0100 #### [facility] [address] [place], [address] EST GFR - AA 75 mL/min Normal >60 [facility] Comment on above: Result Comment: Afri can Rwandan GFR Calc Performed By: #### L 500.4050, L100.0100 #### [facility] [address] [place], [address] GAP 8 Normal 5-15 [facility] Comment on above: Performed By: #### L 500.4050, L100.0100 #### [facility] [address] [place], [address] GFR/1.73 sq M.predicted among non-blacks MDRD (S/P/Bld) [Vol rate/Area] 62 mL/min/{1.73_m2} Normal >60 [facility] Comment on above: Result Comment: Non- GFR Calc Performed By: #### L 500.4050, L100.0100 #### [facility] [address] [place], [address] Globulin (S) [Mass/Vol] 3.5 g/dL Normal 2.2-4.2 [facility] Comment on above: Performed By: #### L 500.4050, L100.0100 #### [facility] [address] [place], [address] Glucose [Mass/Vol] 108 mg/dL High 74-106 [facility] Comment on above: Result Comment: Fast ing Glucose result from 100 to 125 mg/dL suggests IMPAIRED HOMEOSTASIS per A.D.A. criteria. Performed By: #### L 500.4050, L100.0100 #### [facility] [address] [place], [address] Potassium [Moles/Vol] 4.0 mmol/L Normal 3.5-5.1 [facility] Comment on above: Performed By: #### L 500.4050, L100.0100 #### [facility] [address] [place], [address] Sodium [Moles/Vol] 130 mmol/L Low 136-145 [facility] Comment on above: Performed By: #### L 500.4050, L100.0100 #### [facility] [address] [place], [address] T PROT 7.1 g/dL Normal 6.4-8.2 [facility] Comment on above: Performed By: #### L 500.4050, L100.0100 #### [facility] [address] [place], [place], [address] Urea nitrogen [Mass/Vol] 15 mg/dL Normal 7-18 [facility] Comment on above: Performed By: #### L 500.4050, L100.0100 #### [facility] [address] [place], [place], [address] ANTINUCLEAR ANTIBODIES DIREC Ton 02-21-2024 ANNIE,DIRECT Negative Normal Negative [facility] Comment on above: Result Comment: Perf ormed at: [facility] [address] [id number] Decorator Hand: Gregorio Stout PhD, Phone: [phone] Performed By: #### P H.PYLORI #### [facility] [address] [place], [place], [address] CCP IgG Antibodieson 024 CCP IgG Ab. 5 units Normal 0-19 [facility] Comment on above: Result Comment: Nega tive <20 Weak positive 20 - 39 Moderate positive 40 - 59 Strong positive >59 Performed at: [facility] [address] [id number] Decorator Hand: Gregorio Stout PhD, Phone: [phone] Performed By: #### P SSI #### [facility] [address] [place], [place], [address] CBC W/Diff, Automatedon Absolute Lymph 0.99 X10 3/uL Normal 0.83-4.51 [facility] Comment on above: Performed By: #### P SSI #### [facility] [address] [place], [place], [address] Absolute Neut 3.8 X10 3/uL Normal 2.0-7.7 [facility] Comment on above: Performed By: #### P SSI #### [facility] [address] [place], [place], [address] Basophils/100 WBC (Bld) 0.9 % Normal 0-1 [facility] Comment on above: Performed By: #### P SSI #### [facility] [address] [place], [address] Eosinophils/100 WBC (Bld) 5.2 % High 0-5 [facility] Comment on above: Performed By: #### P SSI #### [facility] [address] [place], [address] Erythrocyte distribution width (RBC) [Ratio] 13.5 % Normal 11.6-14.6 [facility] Comment on above: Performed By: #### P SSI #### [facility] [address] [place], [address] Hematocrit (Bld) [Volume fraction] 45.5 % Normal 37-47 [facility] Comment on above: Performed By: #### P SSI #### [facility] [address] [place], [address] Hemoglobin (Bld) [Mass/Vol] 15.0 g/dL Normal 12.0-15.0 [facility] Comment on above: Performed By: #### P SSI #### [facility] [address] [place], [address] IG% 1.000 High 0.0-0.9 [facility] Comment on above: Result Comment: IG% - Immature Granulocytes (promyelocytes, myelocytes and metamyelocytes) > 1% indicates that a LEFT SHIFT is Present. Performed By: #### P SSI #### [facility] [address] [place], [address] Lymphocytes/100 WBC (Bld) 17.1 % Low 19-41 [facility] Comment on above: Performed By: #### P SSI #### [facility] [address] [place], [address] MCH (RBC) [Entitic mass] 28.4 pg Normal 27.0-32.0 [facility] Comment on above: Performed By: #### P SSI #### [facility] [address] [place], [address] MCHC (RBC) [Mass/Vol] 33.0 g/dL Normal 32-36 [facility] Comment on above: Performed By: #### P SSI #### [facility] [address] [place], [address] MCV (RBC) [Entitic vol] 86.0 fL Normal 81-99 [facility] Comment on above: Performed By: #### P SSI #### [facility] [address] [place], [address] Monocytes/100 WBC (Bld) 10.4 % High 0-10 [facility] Comment on above: Performed By: #### P SSI #### [facility] [address] [place], [address] Neutrophils/100 WBC (Bld) 65.4 % Normal 47-70 [facility] Comment on above: Performed By: #### P SSI #### [facility] [address] [place], [address] Nucleated RBC (Bld) [#/Vol] 0 10*3/uL Normal 0-5 [facility] Comment on above: Performed By: #### P SSI #### [facility] [address] [place], [address] Platelet mean volume (Bld) [Entitic vol] 11.1 fL Normal 6.2-12.0 [facility] Comment on above: Performed By: #### P SSI #### [facility] [address] [place], [address] Platelets (Bld) [#/Vol] 197 10*3/uL Normal 150-450 [facility] Comment on above: Performed By: #### P SSI #### [facility] [address] [place], [address] RBC (Bld) [#/Vol] 5.29 10*6/uL Normal 4.2-5.4 [facility] Comment on above: Performed By: #### P SSI #### [facility] [address] [place], [address] RDW SD 42.0 fl Normal 35.1-43.9 [facility] Comment on above: Performed By: #### P SSI #### [facility] [address] [place], [address] ( WBC (Bld) [#/Vol] 5.8 10*3/uL Normal 4.4-11.0 [facility] Comment on above: Performed By: #### P SSI #### [facility] [address] [place], [address] ( CRPon 02-17-2024 C-REACTIVE PROT < 2.90 Normal 0.0-3.0 [facility] Comment on above: Result Comment: C-Re active Protein (CRP) provides useful information for the diagnosis, therapy and monitoring of inflammatory processes and associated diseases. For the evaluation of Relative Risk for Cardiovascular Disease, a High Sensitivity CRP (HSCRP) should be ordered. Performed By: #### P SSI #### [facility] [address] [place], [address] Comprehensive Metabolic Prof ilon 02-17-2024 Albumin [Mass/Vol] 3.9 g/dL Normal 3.2-5.0 [facility] Comment on above: Performed By: #### P SSI #### [facility] [address] [place], [address] ( Albumin/Globulin [Mass ratio] 1.0 {ratio} Normal 0.9-2.4 [facility] Comment on above: Performed By: #### P SSI #### [facility] [address] [place], [address] ALK P 53 U/L Normal 45-117 [facility] Comment on above: Performed By: #### P SSI #### [facility] [address] [place], [address] ALT [Catalytic activity/Vol] 21 U/L Normal 13-56 [facility] Comment on above: Performed By: #### P SSI #### [facility] [address] [place], [address] AST [Catalytic activity/Vol] 22 U/L Normal 15-37 [facility] Comment on above: Performed By: #### P SSI #### [facility] [address] [place], [address] Bilirubin [Mass/Vol] 0.50 mg/dL Normal 0.20-1.00 [facility] Comment on above: Result Comment: For patients on eltrombopag therapy, use of Dimension [place] TBIL is not recommended. Performed By: #### P SSI #### [facility] [address] [place], [address] BUN/CRE 18.1 RATIO Normal 10-20 [facility] Comment on above: Performed By: #### P SSI #### [facility] [address] [place], [address] CA,Total 9.9 mg/dL Normal 8.5-10.1 [facility] Comment on above: Performed By: #### P SSI #### [facility] [address] [place], [address] Chloride [Moles/Vol] 99 mmol/L Normal 98-107 [facility] Comment on above: Performed By: #### P SSI #### [facility] [address] [place], [address] CO2 [Moles/Vol] 27.0 mmol/L Normal 21.0-32.0 [facility] Comment on above: Performed By: #### P SSI #### [facility] [address] [place], [address] Creatinine [Mass/Vol] 0.94 mg/dL Normal 0.55-1.02 [facility] Comment on above: Result Comment: The validity of the calculated GFR GFRAA in patients over 70 years has not been determined. Clinical correlation is essential. Performed By: #### P SSI #### [facility] [address] [place], [address] EST GFR - AA 73 mL/min Normal >60 [facility] Comment on above: Result Comment: Afri can [place]an GFR Calc Performed By: #### P SSI #### [facility] [address] [place], [address] GAP 7 Normal 5-15 [facility] Comment on above: Performed By: #### P SSI #### [facility] [address] [place], [address] GFR/1.73 sq M.predicted among non-blacks MDRD (S/P/Bld) [Vol rate/Area] 61 mL/min/{1.73_m2} Normal >60 [facility] Comment on above: Result Comment: Non- GFR Calc Performed By: #### P SSI #### [facility] [address] [place], [address] Globulin (S) [Mass/Vol] 4.1 g/dL Normal 2.2-4.2 [facility] Comment on above: Performed By: #### P SSI #### [facility] [address] [place], [address] Glucose [Mass/Vol] 87 mg/dL Normal 74-106 [facility] Comment on above: Performed By: #### P SSI #### [facility] [address] [place], [address] Potassium [Moles/Vol] 3.8 mmol/L Normal 3.5-5.1 [facility] Comment on above: Performed By: #### P SSI #### [facility] [address] [place], [address] Sodium [Moles/Vol] 133 mmol/L Low 136-145 [facility] Comment on above: Performed By: #### P SSI #### [facility] [address] [place], [address] T PROT 8.0 g/dL Normal 6.4-8.2 [facility] Comment on above: Performed By: #### P SSI #### [facility] [address] [place], [address] Urea nitrogen [Mass/Vol] 17 mg/dL Normal 7-18 [facility] Comment on above: Performed By: #### P SSI #### [facility] [address] [place], [address] Erythrocyte Sed Rateon 02-16 SED RATE 9 mm/hr Normal 0-30 [facility] Comment on above: Performed By: #### P SSI #### [facility] [address] [place], [address] Hepatitis B Surface Antibody on 02-17-2024 HEP B Surf Ab Non-Reactive Normal [facility] Comment on above: Result Comment: Non Reactive: Inconsistent with immunity less than <10 mIU/mL Reactive: Consistent with immunity greater than or equal to 10 mIU/mL Performed By: #### P SSI #### [facility] [address] [place], [address] (923 Hepatitis B Surface Antigeno n 02-17-2024 HEP B Surf Ag Non-Reactive Normal Nonreactive [facility] Comment on above: Performed By: #### P SSI #### [facility] [address] [place], [address] Hepatitis C Antibodyon 02-16 Hepatitis C AB Non-Reactive Normal Nonreactive [facility] Comment on above: Result Comment: Non Reactive: < 0.8 Equivocal: >/= 0.8 to < 1.0 Reactive: >/= 1.0 The CDC requires that a reactive/equivocal HCV antibody result be sent out for confirmation. HCV Quant by PCR testing. Performed By: #### P SSI #### [facility] [address] [place], [place], [address] Pelvis 1 or 2 Viewson 2023 Pelvis 1 or 2 Views [facility] Services [address] [place] [address] Pelvis 1 or 2 Views MR#: [id number] Acct: [id number] Name: CONCEPCION DONALDSON Rep #: [id number] : 1940 F 83 From: Lynne melara MD PCP: Dr. Preston Haney MD Status: REG CLI Study: Pelvis 1 or 2 Views Date of Exam: 02/17/24 Exam# [id number] Ordering Dr: [place] [id number] HISTORY: INFLAMMATORY POLYARTHROPATHY. TECHNIQUE: XR Pelvis 1 [...] Preston Haney MD; Dr. Jessica Madrid MD Board Writer: Signed Normal [facility] Rheumatoid Factoron 02-17-20 RHEUMATOID FAC < 10.0 Normal <15 [facility] Comment on above: Performed By: #### P SSI #### [facility] [address] [place], [place], [id number] Gastroenterology Visit Repor ton 01-23-2024 Gastroenterology Visit Report [facility] [address] [place] [address] OFFICE VISIT Date of Service: 01/23/24 MR#: [id number] Acct: [id number] Name: CONCEPCION DONALDSON Rep #: [id number] : 1940 Provider: Gavino Jay DO Age/Sex: 83/F Location: [facility] [place] Status: Signed Intake Vital Signs 09/06/23 09:33 [...] three ring RS colon, 6 total. OV 8..22 prefer weekly tap water enema for management of constipation. OV 11..22 recommend oil regimen to lubricate GI tract. [...] cramping, diarrhea, (more content not included)... Normal [facility] CESAR DIAGNOSTIC LEFTon 2022 [facility] CESAR SCREENING W Mallorie 07-09 [facility] Matthew 06-11-2022 RICH Telephone (StamptAKRE) CONCEPCION DONALDSON ([id number]) 1940 F Date Time Provider Department 06/11/22 [...] Encounter Status:Closed by BLANCA MUNOZ on 06/11/22 [facility] Matthew 02-16-2022 RICH Telephone (GYNGRN) CONCEPCION DONALDSON ([id number]) 1940 F Date Time Provider Department 02/16/22 [...] Encounter Status:Closed by LAURA SHEPARD on 02/16/22 [facility] 01-20-2022 CNPShy Telephone (UROLAG) CONCEPCION DONALDSON ([id number]) 1940 F Date Time Provider Department 01/20/22 LAURA SHEPARD During your visit today, we recorded the following information about you: Farhad Arredondo MA 01/20/2022 8:51 AM Signed Pt called in asking for recent CT scan results. And also pt says she is having UTI symptoms came back. Asking for urine analysis. Urine culture pended APOORVA Rodriguez APRN.[facility] 01/21/2022 10:16 AM Signed Urine culture order signed. Advised patient CT scan does not indicate a kidney stone. There are some findings (moderate hydronephrosis and renal cyst) that have not changed since CT 2017 which I will review with Dr. Munoz and let her know if we need to do anything additional. Laura Shepard APRN.[employer] Lucille Gilliland Crew Chief 01/21/2022 10:19 AM Signed Left message for patient to return call Lucille Gilliland Crew Chief Lucille Gilliland Crew Chief 01/21/2022 11:03 AM Signed Patient notified of CT results and urine culture order. Lucille Gilliland Linsey Munoz MD 01/22/2022 8:12 AM Signed Agree with below. No evidence of stone and otherwise stable findings (moderate hydro and cyst). If frequency of UTIs does not improve with antibiotic suppression, may recommend follow up with urology to determine if additional recommendations can be made for anatomic findings which may be contributing. Please inform pt. MD Laura Millan APRN.[facility] 01/22/2022 10:16 AM Signed Spoke with patient regarding Dr. Munoz's message. Urine culture pending. Questions answered. Laura Shepard APRN.[employer] Allergies As of Date: 01/20/2022 Noted Allergy [...] symptoms [R39.9] Order(s):URINE CULTURE [SQURCUL] Order #: [id number] FUTURE Prescriptions as of 01/22/2022 - trimethoprim [...] IBS (irritable (more content not included)... Normal [facility] CT FLANK WO IVCONon 01-09-20 [facility] Matthew 12-18-2021 RICH Telephone (ANNETTE) CONCEPCION DONALDSON ([id number]) 1940 F Date Time Provider Department 12/18/21 [...] Date Reviewed: 12/15/2021 Reviewed by: Lucille Gilliland Crew Chief - Fully Assessed Reason for Visit: Results [...] 12/18/2021 Cmt: (more content not included)... 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 She has a previous history of an abnormal mammogram. LMP: No LMP recorded. Patient has had a hysterectomy.; Menopause post: Menstrual history: NA; Deliveries: 1 x I have confirmed and edited as necessary, the PFSH obtained by others. Blanca Munoz MD [employer] Supervisor offered: Patient accepts, visit chaperoned by Lucille Gilliland MA. OBJECTIVE: BP 118/78 Ht 5' 3.5 (1.61m) Wt 158 lb (71.7kg) BMI 27.55 kg/(m2). General: Well appearing, alert, in no acute distress, well-hydrated, well nourished. Abdomen: Deferred Pelvic: Ext. Genitalia: no lesions Vagina: atrophic epithelium with estrogen effect Urine dip trace blood, +nitrite, small leuk Impression: Concepcionilsa Donaldson is a 80 year old female [...] steps in treatment Referring Provider: PRESTON HANEY [[id number]] Allergies As of Date: 12/15/2021 Noted Allergy [...] Date Reviewed: 12/15/2021 Reviewed by: Lucille Gilliland Crew Chief - Fully Assessed Reason for Visit: Recurrent U (more content not included)... Normal [facility] Urinalysis complete panel (U )on 12-15-2021 Bacteria LM.HPF (Urine sed) [#/Area] Many Abnormal None Seen [facility] Comment on above: Order Comment: Speci men Type: URINE SPECIMEN Ordering Facility: [facility] Address: [address] [place] [address] Performed By: #### 2 4356-8 #### [facility] CLIA [id number] [address] [facility] Bilirubin Ql (U) Negative Normal Negative [facility] Comment on above: Order Comment: Speci men Type: URINE SPECIMEN Ordering Facility: [facility] Address: [address] [place] [address] Performed By: #### 2 4356-8 #### [facility] CLIA [id number] [address] Clarity (Unsp spec) Turbid Abnormal Clear [facility] Comment on above: Order Comment: Speci men Type: URINE SPECIMEN Ordering Facility: [facility] Address: [address] [place] [address] Performed By: #### 2 4356-8 #### [facility] CLIA [id number] [address] Color (U) Light Yellow Normal yellow [facility] Comment on above: Order Comment: Speci men Type: URINE SPECIMEN Ordering Facility: [facility] Address: [address] [place] [address] Performed By: #### 2 4356-8 #### [facility] CLIA [id number] [address] Epithelial cells LM.HPF (Urine sed) [#/Area] Few Normal [facility] Comment on above: Order Comment: Speci men Type: URINE SPECIMEN Ordering Facility: [facility] Address: [address] [place] [address] Result Comment: Few Performed By: #### 2 4356-8 #### [facility] CLIA [id number] [address] OF [place] Glucose Test strip (U) [Mass/Vol] Negative Normal Negative [facility] Comment on above: Order Comment: Speci men Type: URINE SPECIMEN Ordering Facility: [facility] Address: [address] [place] [address] Performed By: #### 2 4356-8 #### [facility] CLIA [id number] [address] Hemoglobin Ql (U) Negative Normal Negative [facility] Comment on above: Order Comment: Speci men Type: URINE SPECIMEN Ordering Facility: [facility] Address: [address] [place] [address] Performed By: #### 2 4356-8 #### [facility] CLIA [id number] [address] OF [facility] Ketones Ql (U) Negative Normal Negative [facility] Comment on above: Order Comment: Speci men Type: URINE SPECIMEN Ordering Facility: [facility] Address: [address] [place] [address] Performed By: #### 2 4356-8 #### [facility] CLIA [id number] [address] [place] Leukocyte esterase Test strip Ql (U) 500 Fernie/mL Abnormal Negative [facility] Comment on above: Order Comment: Speci men Type: URINE SPECIMEN Ordering Facility: [facility] Address: [address] [place] [address] Performed By: #### 2 4356-8 #### [facility] CLIA [id number] [address] [place] Nitrite Ql (U) Negative Normal Negative [facility] Comment on above: Order Comment: Speci men Type: URINE SPECIMEN Ordering Facility: [facility] Address: [address] [place] [address] Performed By: #### 2 4356-8 #### [facility] CLIA [id number] [address] [place] pH (U) 6.5 [pH] Normal 5.0-8.0 [facility] Comment on above: Order Comment: Speci men Type: URINE SPECIMEN Ordering Facility: [facility] Address: [address] [place] [address] Performed By: #### 2 4356-8 #### [facility] CLIA [id number] [address] Protein (U) [Mass/Vol] Negative Normal Negative [facility] Comment on above: Order Comment: Speci men Type: URINE SPECIMEN Ordering Facility: [facility] Address: [address] [place] [address] Performed By: #### 2 4356-8 #### [facility] CLIA [id number] [address] RBC LM.HPF (Urine sed) [#/Area] 3-5 /HPF Abnormal 0-3 /HPF [facility] Comment on above: Order Comment: Speci men Type: URINE SPECIMEN Ordering Facility: [facility] Address: [address] [place] [address] Performed By: #### 2 4356-8 #### [facility] CLIA [id number] [address] [place] [address] Specific gravity (U) [Rel density] 1.007 Normal 1.005-1.030 [facility] Comment on above: Order Comment: Speci men Type: URINE SPECIMEN Ordering Facility: [facility] Address: [address] [place] [address] Performed By: #### 2 4356-8 #### [facility] CLIA [id number] [address] Urobilinogen Ql (U) Normal Normal Negative [facility] Comment on above: Order Comment: Speci men Type: URINE SPECIMEN Ordering Facility: [facility] Address: [address] [place] [address] Performed By: #### 2 4356-8 #### [facility] CLIA [id number] [address] WBC LM.HPF (Urine sed) [#/Area] /[HPF] Abnormal 0-5 /HPF [facility] Comment on above: Order Comment: Speci men Type: URINE SPECIMEN Ordering Facility: [facility] Address: [address] [place] [address] Performed By: #### 2 4356-8 #### [facility] CLIA [id number] [address] Yeast.budding LM.HPF (Urine sed) [#/Area] Few Abnormal None Seen [facility] Comment on above: Order Comment: Speci men Type: URINE SPECIMEN Ordering Facility: [facility] Address: [address] [place] [address] Performed By: #### 2 4356-8 #### [facility] CLIA [id number] [address] 12-01-2021 CNPN Telephone ([place]) CONCEPCION DONALDSON ([id number]) 1940 F Date Time Provider Department 12/01/21 BLANCA MUNOZ During your visit today, we recorded the following information about you: Blanca Munoz MD 12/01/2021 12:13 PM Signed Please inform pt she can hold Hiprex while taking Cipro then restart after completing antibiotics. MD Terri Millan Karla Cma 12/01/2021 1:06 PM Signed Pt advised [...] Encounter Status:Closed by BLANCA MUNOZ on 12/01/21 [facility] Matthew 09-17-2021 HEYDIN Telephone ([place]) CONCEPCION DONALDSON ([id number]) 1940 F Date Time Provider Department 09/17/21 BLANCA MUNOZ [facility] During your visit today, we recorded the [...] same thing? Can you advise? Jasson Shepard APRN.[employer] 09/17/2021 8:45 AM Signed Spoke with patient. We discussed indications for ultrasound at length. We discussed D-mannose as an alternative to the Hiprex since it is costly. She is using vaginal estrogen cream. Questions answered. Laura Shepard APRN.[facility] Allergies As of Date: 09/17/2021 Noted Allergy [...] Encounter Status:Closed by LAURA SHEPARD on 09/17/21 [facility] Matthew 09-11-2021 CNPN Telephone ([place]) CONCEPCION DONALDSON ([id number]) 1940 F Date Time Provider Department 09/11/21 BLANCA MUNOZ During your visit today, we recorded the following information about you: Blanca Munoz MD 09/11/2021 5:23 PM Signed Called and spoke with pt. Cipro x7 days prescribed for UTI. Vulvar biopsy result discussed. Continue clobetasol taper. Blanca Mnuoz MD Allergies As of Date: 09/11/2021 Noted [...] tabletRfl: 0 URINE CULTURE [SQURCUL] Order #: [id number] STANDING Prescriptions as of 09/11/2021 - ciprofloxacin [...] Status:Closed by BLANCA MUNOZ on 09/11/21 Normal [facility] Bacteria Ur Culton 2 Bacteria [...] >8 Trimeth sulfameth S <=0.5 F Abnormal [facility] Comment on above: Performed By: #### 6 30-4 ####[facility] [id number] [address] [place] CNOVon 09-08-2021 CNOV Office Visit (GYNGRN ) CONCEPCION DONALDSON ([id number]) 1940 F Date Time Provider Department 09/08/21 [...] diary reviewed and to be scanned into [employer] 6. Full incontinence of feces - Schedule GI appointment as previously discussed 7. Alternating constipation and diarrhea - As above #6 8. Vaginal atrophy - Continue vaginal estrogen Follow up with me in 3 months MD Blanca Millan MD 09/08/2021 3:23 PM Addendum Schedule appointment with GI Follow up with Dr. Munoz in 3 months VULVAR BIOPSY Many conditions may cause your technology manager to suggest a vulvar biopsy including vulvar itching, unresponsive to therapy, ulcerated lesions, pigmented lesions, and tumors. The biopsy result will assist your technology manager to devise a treatment plan suitable [...] if you were to have a regular technology manager examination. 3. The vulvar area will [...] be available (more content not included)... Normal [facility] SURGICAL PATHOLOGYon CASE REPORT Normal [facility] Comment on above: Order Comment: Speci men Type: TISSUE SPECIMEN Ordering Facility: [facility] Address: [address] [place] [address] Result Comment: Surg ical Pathology Report Case: [id number] Authorizing Provider: Blanca Munoz MD Collected: 09/08/2021 03:55 PM Ordering Location: Urogynecology Received: 09/09/2021 11:06 AM Pathologist: Enrique Koehler MD Specimen: VULVA BIOPSY, left Performed By: #### S #### [facility] CLIA [id number] [address] [place] [address] CLINICAL HISTORY non healing sore on inner surface of left labium minus, h/o lichen planus like dermatitis Normal [facility] Comment on above: Order Comment: Jenniferi teena Type: TISSUE SPECIMEN Ordering Facility: [facility] Address: [address] [place], [place] [address] Performed By: #### S #### [facility] CLIA [id number] [address] [place] [address] DIAGNOSIS COMMENT Sections demonstrate a biopsy of [...] not seen in this biopsy sampling. Normal [facility] Comment on above: Order Comment: Jenniferi men Type: TISSUE SPECIMEN Ordering Facility: [facility] Address: [address] [place] [address] Performed By: #### S #### [facility] CLIA [id number] [address] [place] [address] FINAL DIAGNOSIS Normal [facility] Comment on above: Order Comment: Speci men Type: TISSUE SPECIMEN Ordering Facility: [facility] Address: [address] [place] [address] Result Comment: A. L eft vulva, biopsy: - Benign skin with mild superficial chronic dermal lymphoid infiltrate. See comment. Performed By: #### S #### [facility] CLIA [id number] [address] [place] [address] FINAL PERFORMING LAB Normal [facility] Comment on above: Order Comment: Speci men Type: TISSUE SPECIMEN Ordering Facility: [facility] Address: [address] [place] [address] Result Comment: Diag nostic interpretation performed at [facility], [address] [place] [address] CLIA# [id number] Tennis Net Maker: Enrique Koehler M.D. Performed By: #### S #### [facility] CLIA [id number] [address] [place] [address] GROSS DESCRIPTION Normal [facility] Comment on above: Order Comment: Speci men Type: TISSUE SPECIMEN Ordering Facility: [facility] Address: [address] [place] [address] Result Comment: A. V ULVA BIOPSY. A. Received in formalin labeled left vulva biopsy is a fleming soft fleming tissue measuring 0.4 x 0.3 x 0.1 cm. The specimen is totally submitted in formalin one cassette. Gross examination performed at [facility], [address] [place] [address] KVB September 09, 2021 11:36 AM Performed By: #### S #### [facility] CLIA [id number] [address] [place] [address] [place] Urinalysis complete panel (U )on 09-08-2021 Bacteria LM.HPF (Urine sed) [#/Area] 4+ /HPF Abnormal None Seen [facility] Comment on above: Order Comment: Speci men Type: URINE SPECIMEN Ordering Facility: [facility] Address: [address] [place] [address] Performed By: #### 2 4356-8 #### [facility] CLIA [id number] [address] Bilirubin Ql (U) Negative Normal Negative [facility] Comment on above: Order Comment: Speci men Type: URINE SPECIMEN Ordering Facility: [facility] Address: [address] [place] [address] Performed By: #### 2 6-8 #### [facility] CLIA [id number] [address] Clarity (Unsp spec) Cloudy Abnormal Clear [facility] Comment on above: Order Comment: Speci men Type: URINE SPECIMEN Ordering Facility: [facility] Address: [address] [place] [address] Performed By: #### 2 6-8 #### [facility] CLIA [id number] [address] Color (U) Yellow Normal Yellow [facility] Comment on above: Order Comment: Speci men Type: URINE SPECIMEN Ordering Facility: [facility] Address: [address] [place] [address] Performed By: #### 2 4356-8 #### [facility] CLIA [id number] [address] Epithelial cells LM.HPF (Urine sed) [#/Area] 10.3 /[HPF] Normal [facility] Comment on above: Order Comment: Speci men Type: URINE SPECIMEN Ordering Facility: [facility] Address: [address] [place] [address] Performed By: #### 2 4356-8 #### [facility] CLIA [id number] [address] Glucose Test strip (U) [Mass/Vol] Negative Normal Negative [facility] Comment on above: Order Comment: Speci men Type: URINE SPECIMEN Ordering Facility: [facility] Address: [address] [place] [address] Performed By: #### 2 4356-8 #### [facility] CLIA [id number] [address] STATES OF [facility] Hemoglobin Ql (U) Negative Normal Negative [facility] Comment on above: Order Comment: Speci men Type: URINE SPECIMEN Ordering Facility: [facility] Address: [address] [place] [address] Performed By: #### 2 4356-8 #### [facility] CLIA [id number] [address] Hyaline casts (Urine sed) [#/Area] 4-10 /LPF Abnormal 0 /LPF [facility] Comment on above: Order Comment: Speci men Type: URINE SPECIMEN Ordering Facility: [facility] Address: [address] [place] [address] Performed By: #### 2 4356-8 #### [facility] CLIA [id number] [address] Ketones Ql (U) Negative Normal Negative [facility] Comment on above: Order Comment: Speci men Type: URINE SPECIMEN Ordering Facility: [facility] Address: [address] [place] [address] Performed By: #### 2 4356-8 #### [facility] CLIA [id number] [address] Leukocyte esterase Test strip Ql (U) Small Abnormal Negative [facility] Comment on above: Order Comment: Speci men Type: URINE SPECIMEN Ordering Facility: [facility] Address: [address] [place] [address] Performed By: #### 2 4356-8 #### [facility] CLIA [id number] [address] Nitrite Ql (U) Negative Normal Negative [facility] Comment on above: Order Comment: Speci men Type: URINE SPECIMEN Ordering Facility: [facility] Address: [address] [place] [address] Performed By: #### 2 4356-8 #### [facility] CLIA [id number] [address] pH (U) 6.0 [pH] Normal 5.0-8.0 [facility] Comment on above: Order Comment: Speci men Type: URINE SPECIMEN Ordering Facility: [facility] Address: [address] [place] [address] Performed By: #### 2 4356-8 #### [facility] CLIA [id number] [address] Protein (U) [Mass/Vol] Negative Normal Negative [facility] Comment on above: Order Comment: Speci men Type: URINE SPECIMEN Ordering Facility: [facility] Address: [address] [place] [address] Performed By: #### 2 4356-8 #### [facility] CLIA [id number] [address] RBC LM.HPF (Urine sed) [#/Area] 3-5 /HPF Abnormal 0-3 /HPF [facility] Comment on above: Order Comment: Speci men Type: URINE SPECIMEN Ordering Facility: [facility] Address: [address] [place] [address] Performed By: #### 2 4356-8 #### [facility] CLIA [id number] [address] Specific gravity (U) [Rel density] 1.011 Normal 1.005-1.030 [facility] Comment on above: Order Comment: Speci men Type: URINE SPECIMEN Ordering Facility: [facility] Address: [address] [place] [address] Performed By: #### 2 4356-8 #### [facility] CLIA [id number] [address] Urobilinogen Ql (U) 0.2 EU/dL Normal 0.2-1.0 EU/dL [facility] Comment on above: Order Comment: Speci men Type: URINE SPECIMEN Ordering Facility: [facility] Address: [address] [place] [address] Performed By: #### 2 4356-8 #### [facility] CLIA [id number] [address] WBC LM.HPF (Urine sed) [#/Area] 11-25 /HPF Abnormal 0-5 /HPF [facility] Comment on above: Order Comment: Speci men Type: URINE SPECIMEN Ordering Facility: [facility] Address: [address] [place] [address] Performed By: #### 2 4356-8 #### [facility] CLIA [id number] [address] Matthew 08-28-2021 [facility] Telephone ([place]) CONCEPCION DONALDSON ([id number]) 1940 F Date Time Provider Department 08/28/21 [...] Status:Closed by LAURA SHEPARD on 08/28/21 Normal [facility] Bacteria Ur Culton Bacteria identified [...] F Trimeth sulfameth S <=0.5 F Abnormal [facility] Comment on above: Performed By: #### 6 30-4 #### [facility] CLIA [id number] [address] OF [facility] CNOVon 08-25-2021 CNOV Office Visit (GYNGRN ) CONCEPCION DONALDSON ([id number]) 1940 F Date Time Provider Department 08/25/21 11:00 AM BLANCA MUNOZ GYNGRShy During your visit [...] process, a PAS/F was performed at the [facility] and compared with appropriate controls. ?The stain is negative for fungal organisms. 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 In the appropriate clinical context, the findings would represent lichen planus or an evolving lichen sclerosis. Clinical correlation remains essential. 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 Normal [facility] Urinalysis complete panel (U )on 08-25-2021 Bacteria LM.HPF (Urine sed) [#/Area] 4+ /HPF Abnormal None Seen [facility] Comment on above: Order Comment: Speci men Type: URINE SPECIMEN Ordering Facility: [facility] Address: [address] [place] [address] Performed By: #### 2 4356-8 #### [facility] CLIA [id number] [address] [place], [place] [id number] [place] Bilirubin Ql (U) Negative Normal Negative [facility] Comment on above: Order Comment: Speci men Type: URINE SPECIMEN Ordering Facility: [facility] Address: [address] [place] [address] Performed By: #### 2 4356-8 #### [facility] CLIA [id number] [address] Clarity (Unsp spec) Turbid Abnormal Clear [facility] Comment on above: Order Comment: Speci men Type: URINE SPECIMEN Ordering Facility: [facility] Address: [address] [place] [address] Performed By: #### 2 4356-8 #### [facility] CLIA [id number] [address] Color (U) Yellow Normal Yellow [facility] Comment on above: Order Comment: Speci men Type: URINE SPECIMEN Ordering Facility: [facility] Address: [address] [place] [address] Performed By: #### 2 4356-8 #### [facility] CLIA [id number] [address] Epithelial cells LM.HPF (Urine sed) [#/Area] 0.6 /[HPF] Normal [facility] Comment on above: Order Comment: Speci men Type: URINE SPECIMEN Ordering Facility: [facility] Address: [address] [place] [address] Performed By: #### 2 4356-8 #### [facility] CLIA [id number] [address] Glucose Test strip (U) [Mass/Vol] Negative Normal Negative [facility] Comment on above: Order Comment: Speci men Type: URINE SPECIMEN Ordering Facility: [facility] Address: [address] [place] [address] Performed By: #### 2 4356-8 #### [facility] CLIA [id number] [address] [place] Hemoglobin Ql (U) Moderate Abnormal Negative [facility] Comment on above: Order Comment: Speci men Type: URINE SPECIMEN Ordering Facility: [facility] Address: [address] [place] [address] Performed By: #### 2 4356-8 #### [facility] CLIA [id number] [address] OF [facility] Hyaline casts (Urine sed) [#/Area] 1-3 /LPF Abnormal 0 /LPF [facility] Comment on above: Order Comment: Speci men Type: URINE SPECIMEN Ordering Facility: [facility] Address: [address] [place] [address] Performed By: #### 2 4356-8 #### [facility] CLIA [id number] [address] Ketones Ql (U) Negative Normal Negative [facility] Comment on above: Order Comment: Speci men Type: URINE SPECIMEN Ordering Facility: [facility] Address: [address] [place] [address] Performed By: #### 2 4356-8 #### [facility] CLIA [id number] [address] Leukocyte esterase Test strip Ql (U) Large Abnormal Negative [facility] Comment on above: Order Comment: Speci men Type: URINE SPECIMEN Ordering Facility: [facility] Address: [facility] [place] [address] Performed By: #### 2 4356-8 #### [facility] CLIA [id number] [address] [place] Nitrite Ql (U) Negative Normal Negative [facility] Comment on above: Order Comment: Speci men Type: URINE SPECIMEN Ordering Facility: [facility] Address: [facility] [place] [address] Performed By: #### 2 4356-8 #### [facility] CLIA [id number] [address] [place] pH (U) 6.5 [pH] Normal 5.0-8.0 [facility] Comment on above: Order Comment: Speci men Type: URINE SPECIMEN Ordering Facility: [facility] Address: [address] [place] [address] Performed By: #### 2 4356-8 #### [facility] CLIA [id number] [address] Protein (U) [Mass/Vol] Negative Normal Negative [facility] Comment on above: Order Comment: Speci men Type: URINE SPECIMEN Ordering Facility: [facility] Address: [address] [place] [address] Performed By: #### 2 4356-8 #### [facility] CLIA [id number] [address] RBC LM.HPF (Urine sed) [#/Area] 6-10 /HPF Abnormal 0-3 /HPF [facility] Comment on above: Order Comment: Speci men Type: URINE SPECIMEN Ordering Facility: [facility] Address: [address] [place] [address] Performed By: #### 2 4356-8 #### [facility] CLIA [id number] [address] Specific gravity (U) [Rel density] 1.011 Normal 1.005-1.030 [facility] Comment on above: Order Comment: Speci men Type: URINE SPECIMEN Ordering Facility: [facility] Address: [address] [place] [address] Performed By: #### 2 4356-8 #### [facility] CLIA [id number] [address] Urobilinogen Ql (U) 0.2 EU/dL Normal 0.2-1.0 EU/dL [facility] Comment on above: Order Comment: Speci men Type: URINE SPECIMEN Ordering Facility: [facility] Address: [address] [place] [address] Performed By: #### 2 4356-8 #### [facility] CLIA [id number] [address] [place] [address] [place] WBC LM.HPF (Urine sed) [#/Area] /[HPF] Abnormal 0-5 /HPF [facility] Comment on above: Order Comment: Speci men Type: URINE SPECIMEN Ordering Facility: [facility] Address: [address] [place] [address] Performed By: #### 2 [id number] #### [facility] CLIA [id number] [address] [place] [address] [place] Culture, urine Bacteria identified Cx Nom (U) Mixed Gram Pos & Gram Neg Org [facility] Work Phone: No Panel Information [facility] Vital Signs Date Time Vital Sign Value Performing Clinician Facility 01-18-2025 09:48-0400 Body mass index (BMI) [Ratio] 28.28 kg/m2 Byron Herman GEOTECHNICAL ENGINEER.SUPERVISOR [employer] Work Phone: [facility] 01-18-2025 09:48-0400 Body weight 73 kg Byron Herman GEOTECHNICAL ENGINEER.SUPERVISOR [employer] Work Phone: [facility] 01-18-2025 09:48-0400 Diastolic blood pressure 66 mm[Hg] Byron Hemran GEOTECHNICAL ENGINEER.SUPERVISOR [employer] Work Phone: [facility] 01-18-2025 09:48-0400 Heart rate 92 /min Byron Herman GEOTECHNICAL ENGINEER.SUPERVISOR [employer] Work Phone: [facility] 01-18-2025 09:48-0400 Respiratory rate 16 /min Byron Herman GEOTECHNICAL ENGINEER.SUPERVISOR [employer] Work Phone: [facility] 01-18-2025 09:48-0400 Systolic blood pressure 126 mm[Hg] Byron Herman GEOTECHNICAL ENGINEER.SUPERVISOR [employer] Work Phone: [facility] 01-16-2025 10:34-0400 Body mass index (BMI) [Ratio] 28.26 kg/m2 Lexis Abelino PA-C Work Phone: [facility] 01-16-2025 10:34-0400 Body weight 72.94 kg Lexis Abelino PA-C Work Phone: [facility] 01-16-2025 10:34-0400 Diastolic blood pressure 69 mm[Hg] Lexis Abelino PA-C Work Phone: [facility] 01-16-2025 10:34-0400 Heart rate 66 /min Lexis Abelino PA-C Work Phone: [facility] 01-16-2025 10:34-0400 Respiratory rate 17 /min Lexis Abelino PA-C Work Phone: [facility] 01-16-2025 10:34-0400 SaO2% (BldA) [Mass fraction] 97 % Lexis Abelino PA-C Work Phone: [facility] 01-16-2025 10:34-0400 Systolic blood pressure 117 mm[Hg] Lexis Abelino PA-C Work Phone: [facility] 11-14-2024 11:31-0400 Body height 160.[address] Preston Haney MD Work Phone: [facility] 11-14-2024 11:31-0400 Body mass index (BMI) [Ratio] 29.5 kg/m2 Dr. Preston Haney MD Work Phone: [facility] 11-14-2024 11:31-0400 Body weight 75.[address] Preston Haney MD Work Phone: [facility] 11-14-2024 11:31-0400 Diastolic blood pressure 83 mm[Hg] Dr. Preston Haney MD Work Phone: [facility] 11-14-2024 11:31-0400 Heart rate 66 /min Dr. Preston Haney MD Work Phone: [facility] 11-14-2024 11:31-0400 Respiratory rate 16 /min Dr. Preston Haney MD Work Phone: [facility] 11-14-2024 11:31-0400 Systolic blood pressure 172 mm[Hg] Dr. Preston Haney MD Work Phone: [facility] 10-11-2024 08:57-0400 Body mass index (BMI) [Ratio] 27.94 kg/m2 Lexis Abelino PA-C Work Phone: [facility] 10-11-2024 08:57-0400 Body weight 72.12 kg Lexis Abelino PA-C Work Phone: [facility] 10-11-2024 08:57-0400 Diastolic blood pressure 74 mm[Hg] Lexis Abelino PA-C Work Phone: [facility] 10-11-2024 08:57-0400 Heart rate 70 /min Lexis Abelino PA-C Work Phone: [facility] 10-11-2024 08:57-0400 SaO2% (BldA) [Mass fraction] 99 % Lexis Abelino PA-C Work Phone: [facility] 10-11-2024 08:57-0400 Systolic blood pressure 152 mm[Hg] Lexis Abelino PA-C Work Phone: [facility] 10-02-2024 09:01-0400 Diastolic blood pressure 66 mm[Hg] Byron Herman GEOTECHNICAL ENGINEER.SUPERVISOR [employer] Work Phone: [facility] 10-02-2024 09:01-0400 Systolic blood pressure 122 mm[Hg] Byron Herman GEOTECHNICAL ENGINEER.SUPERVISOR [employer] Work Phone: [facility] 10-02-2024 08:59-0400 Body mass index (BMI) [Ratio] 27.97 kg/m2 Byron Herman GEOTECHNICAL ENGINEER.SUPERVISOR [employer] Work Phone: [facility] 10-02-2024 08:59-0400 Body weight 72.2 kg Byron Herman GEOTECHNICAL ENGINEER.SUPERVISOR [employer] Work Phone: [facility] 10-02-2024 08:59-0400 Heart rate 80 /min Byron Herman GEOTECHNICAL ENGINEER.SUPERVISOR [employer] Work Phone: [facility] 10-02-2024 08:59-0400 Respiratory rate 16 /min Byron Herman GEOTECHNICAL ENGINEER.SUPERVISOR [employer] Work Phone: [facility] 09-20-2024 09:26-0400 Body mass index (BMI) [Ratio] 28.12 kg/m2 Lexis Abelino PA-C Work Phone: [facility] 09-20-2024 09:26-0400 Body weight 72.58 kg Lexis Abelino PA-C Work Phone: [facility] 09-20-2024 09:26-0400 Diastolic blood pressure 92 mm[Hg] Lexis Abelino PA-C Work Phone: [facility] 09-20-2024 09:26-0400 Heart rate 71 /min Lexis Abelino PA-C Work Phone: [facility] 09-20-2024 09:26-0400 SaO2% (BldA) [Mass fraction] 95 % Lexis Abelino PA-C Work Phone: [facility] 09-20-2024 09:26-0400 Systolic blood pressure 174 mm[Hg] Lexis Abelino PA-C Work Phone: [facility] 07-20-2024 10:19-0500 Body mass index (BMI) [Ratio] 27.66 kg/m2 Preston Haney MD Work Phone: [facility] 07-20-2024 10:19-0500 Body temperature 97.2 [degF] Preston Haney MD Work Phone: [facility] 07-20-2024 10:19-0500 Body weight 71.4 kg Preston Haney MD Work Phone: [facility] 07-20-2024 10:19-0500 Diastolic blood pressure 82 mm[Hg] Preston Haney MD Work Phone: [facility] 07-20-2024 10:19-0500 Heart rate 77 /min Preston Haney MD Work Phone: [facility] 07-20-2024 10:19-0500 Respiratory rate 16 /min Preston Haney MD Work Phone: [facility] 07-20-2024 10:19-0500 SaO2% (BldA) [Mass fraction] 96 % Preston Haney MD Work Phone: [facility] 07-20-2024 10:19-0500 Systolic blood pressure 152 mm[Hg] Preston Haney MD Work Phone: [facility] 04-24-2024 10:22-0400 Diastolic blood pressure 70 mm[Hg] Byron Herman GEOTECHNICAL ENGINEER.SUPERVISOR [employer] Work Phone: [facility] 04-24-2024 10:22-0400 Systolic blood pressure 130 mm[Hg] Byron Herman GEOTECHNICAL ENGINEER.SUPERVISOR [employer] Work Phone: [facility] 04-24-2024 10:20-0400 Body height 160.7 cm Byron Herman GEOTECHNICAL ENGINEER.SUPERVISOR [employer] Work Phone: [facility] 04-24-2024 10:20-0400 Body mass index (BMI) [Ratio] 27.35 kg/m2 Byron Herman GEOTECHNICAL ENGINEER.SUPERVISOR [employer] Work Phone: [facility] 04-24-2024 10:20-0400 Body weight 70.6 kg Byron Herman GEOTECHNICAL ENGINEER.SUPERVISOR [employer] Work Phone: [facility] 04-24-2024 10:20-0400 Heart rate 68 /min Byron Herman GEOTECHNICAL ENGINEER.SUPERVISOR [employer] Work Phone: [facility] 04-24-2024 10:20-0400 Respiratory rate 16 /min Byron Herman GEOTECHNICAL ENGINEER.SUPERVISOR [employer] Work Phone: [facility] 01-20-2024 09:54-0400 Body mass index (BMI) [Ratio] 27.72 kg/m2 Byron Herman GEOTECHNICAL ENGINEER.SUPERVISOR [employer] Work Phone: [facility] 01-20-2024 09:54-0400 Body weight 72.12 kg Byron Herman GEOTECHNICAL ENGINEER.SUPERVISOR [employer] Work Phone: [facility] 01-20-2024 09:54-0400 Diastolic blood pressure 70 mm[Hg] Byrno Herman GEOTECHNICAL ENGINEER.SUPERVISOR [employer] Work Phone: [facility] 01-20-2024 09:54-0400 Heart rate 67 /min Byron Herman GEOTECHNICAL ENGINEER.SUPERVISOR [employer] Work Phone: [facility] 01-20-2024 09:54-0400 Respiratory rate 16 /min Byron Herman GEOTECHNICAL ENGINEER.SUPERVISOR [employer] Work Phone: [facility] 01-20-2024 09:54-0400 SaO2% (BldA) [Mass fraction] 98 % Byron Herman GEOTECHNICAL ENGINEER.SUPERVISOR [employer] Work Phone: [facility] 01-20-2024 09:54-0400 Systolic blood pressure 144 mm[Hg] Byron Herman GEOTECHNICAL ENGINEER.SUPERVISOR [employer] Work Phone: [facility] 07-20-2023 10:24-0500 Body temperature 97.39 [degF] Preston Haney MD Work Phone: [facility] 07-20-2023 10:24-0500 Body weight 71.67 kg Preston Haney MD Work Phone: [facility] 07-20-2023 10:24-0500 Diastolic blood pressure 66 mm[Hg] Preston Haney MD Work Phone: [facility] 07-20-2023 10:24-0500 Heart rate 72 /min Preston Haney MD Work Phone: [facility] 07-20-2023 10:24-0500 Respiratory rate 18 /min Preston Haney MD Work Phone: [facility] 07-20-2023 10:24-0500 SaO2% (BldA) [Mass fraction] 96 % Preston Haney MD Work Phone: [facility] 07-20-2023 10:24-0500 Systolic blood pressure 132 mm[Hg] Preston Haney MD Work Phone: [facility] 09-14-2022 09:34-0500 Body temperature 97.2 [degF] Miah Mart MD Work Phone: [facility] 09-14-2022 09:34-0500 Body weight 73.85 kg Miah Mart MD Work Phone: [facility] 09-14-2022 09:34-0500 Diastolic blood pressure 84 mm[Hg] Miah Mart MD Work Phone: [facility] 09-14-2022 09:34-0500 Heart rate 80 /min Miah Mart MD Work Phone: [facility] 09-14-2022 09:34-0500 Systolic blood pressure 128 mm[Hg] Miah Mart MD Work Phone: [facility] 08-19-2022 10:27-0500 Body height 160.[address] Preston Haney Work Phone: [facility] 08-19-2022 10:27-0500 Body mass index (BMI) [Ratio] 28.8 kg/m2 Dr. Preston Haney Work Phone: [facility] 08-19-2022 10:27-0500 Body weight 73.[address] Preston Haney Work Phone: [facility] 08-19-2022 10:27-0500 Diastolic blood pressure 78 mm[Hg] Dr. Preston Haney Work Phone: [facility] 08-19-2022 10:27-0500 Heart rate 73 /min Dr. Preston Haney Work Phone: [facility] 08-19-2022 10:27-0500 Systolic blood pressure 139 mm[Hg] Dr. Preston Haney Work Phone: [facility] 08-17-2022 08:26-0500 Body height 161.3 cm Miah Mart MD Work Phone: [facility] 08-17-2022 08:26-0500 Body temperature 97.59 [degF] Miah Mart MD Work Phone: [facility] 08-17-2022 08:26-0500 Body weight 73.21 kg Miah Mart MD Work Phone: [facility] 08-17-2022 08:26-0500 Diastolic blood pressure 78 mm[Hg] Miah Mart MD Work Phone: [facility] 08-17-2022 08:26-0500 Heart rate 78 /min Miah Mart MD Work Phone: [facility] 08-17-2022 08:26-0500 Respiratory rate 100 /min Miah Mart MD Work Phone: [facility] 08-17-2022 08:26-0500 Systolic blood pressure 158 mm[Hg] Miah Mart MD Work Phone: [facility] 06-08-2022 10:01-0500 Body weight 73.03 kg Elisabeth Hoff GEOTECHNICAL ENGINEER.[employer] Work Phone: [facility] 06-08-2022 10:01-0500 Diastolic blood pressure 60 mm[Hg] Elisabeth Hoff GEOTECHNICAL ENGINEER.[employer]ING [employer] Work Phone: [facility] 06-08-2022 10:01-0500 Heart rate 72 /min Elisabeth Hoff GEOTECHNICAL ENGINEER.[employer] Work Phone: [facility] 06-08-2022 10:01-0500 Respiratory rate 16 /min Elisabeth Hoff GEOTECHNICAL ENGINEER.[employer]ING [employer] Work Phone: [facility] 06-08-2022 10:01-0500 Systolic blood pressure 132 mm[Hg] Elisabeth Hoff GEOTECHNICAL ENGINEER.[employer]ING [employer] Work Phone: [facility] 05-28-2022 09:57-0500 Body mass index (BMI) [Ratio] 28.8 kg/m2 Dr. Preston Haney Work Phone: [facility] 05-28-2022 09:57-0500 Body weight 73.[address] Preston Haney Work Phone: [facility] 05-28-2022 09:57-0500 Diastolic blood pressure 84 mm[Hg] Dr. Preston Haney Work Phone: [facility] 05-28-2022 09:57-0500 Heart rate 69 /min Dr. Preston Haney Work Phone: [facility] 05-28-2022 09:57-0500 SaO2% (BldA) [Mass fraction] 97 % Dr. Preston Haney Work Phone: [facility] 05-28-2022 09:57-0500 Systolic blood pressure 168 mm[Hg] Dr. Preston Haney Work Phone: [facility] 12-01-2021 10:30-0400 Diastolic blood pressure 70 mm[Hg] Preston Haney MD Work Phone: [facility] 12-01-2021 10:30-0400 Systolic blood pressure 140 mm[Hg] Preston Haney MD Work Phone: [facility] 12-01-2021 09:26-0400 Body weight 73.03 kg Preston Haney MD Work Phone: [facility] 12-01-2021 09:26-0400 Heart rate 62 /min Preston Haney MD Work Phone: [facility] Encounters Encounter Date Encounter Type Care Provider Facility Start: 01-22-2025 ambulatory Hubert Pereira Facility:[facility] Start: 01-18-2025 End: 01-18-2025 Patient encounter procedure Byron Sutton APRN.CNP Work Phone: Internal Medicine [place] Comment on above: Mixed hyperlipidemia (Primary Dx); Primary hypertension; Asymmetric hypertrophy of ventricular septum; Abnormal stress test; Screening for depression; Encounter for screening examination for other mental health and behavioral disorders; Primary osteoarthritis involving multiple joints; Raynaud's disease without gangrene Start: 01-18-2025 End: 01-18-2025 ambulatory BYRON SUTTON Facility:[facility] Start: 01-16-2025 End: 01-16-2025 Patient encounter procedure Lexis Roca PA-C Work Phone: Rheumatology Comment on above: Swelling of right mi ddle finger (Primary Dx); Bilateral hand pain; Pain of right hand; Primary osteoarthritis involving multiple joints; Raynaud's disease without gangrene; History of gastric ulcer Start: 01-16-2025 End: 01-16-2025 ambulatory LEXISJUAN ROCA Facility:[facility] Start: 01-09-2025 End: 01-09-2025 E-mail encounter from caregiver Lexis Roca WILLEM Work Phone: Rheumatology Start: 01-09-2025 End: 01-09-2025 Patient encounter procedure Lexis Roca WILLEM Work Phone: Rheumatology Comment on above: Upcoming Rheumatolog y Appointment Start: 01-09-2025 End: 01-09-2025 ambulatory PRESTON HANEY Facility:[facility] Start: 01-03-2025 ambulatory Hubert Pereira Facility:[facility] Start: 01-03-2025 Non-patient / Non-visit Dr. Keely MEEKS -[facility] Start: 01-03-2025 End: 01-03-[address] Preston Haney MD Work Phone: -Cardiovascular Services Start: 01-03-2025 End: 01-03-[address] Hubert Pereira MD -Cardiovascu lar Services Work Phone: Start: 01-03-2025 End: 01-03-2025 ambulatory Hubert Pereira Facility:[facility] Start: 11-26-2024 End: 11-26-2024 Patient encounter procedure Elia Olivares OD Work Phone: Ophthalmology Comment on above: High risk medication use (Primary Dx); Dry eye syndrome of bilateral lacrimal glands; Pseudophakia of both eyes; Posterior vitreous detachment of both eyes; Prediabetes Start: 11-26-2024 End: 11-26-2024 ambulatory ELIA OLIVARSE Facility:[facility] Start: 11-19-2024 End: 11-19-2024 Patient encounter procedure Jv Brooks MD Work Phone: Orthopaedics Comment on above: Arthritis of finger (Primary Dx); Pain of right hand; Swelling of right middle finger; Inflammatory arthritis Start: 11-19-2024 End: 11-19-2024 ambulatory LEXIS ABELINO Facility:[facility] Start: 11-14-2024 End: 11-14-[address] Hubert Pereira MD -[place] [facility] Work Phone: Start: 11-14-2024 End: 11-14-2024 ambulatory Hubert Pereira Facility:[facility] Start: 10-17-2024 End: 10-19-2024 Follow-up encounter Byron Sutton APRN.SUPERVISOR [employer] Work Phone: Internal Medicine [place] Start: 10-16-2024 End: 10-16-2024 ambulatory BYRON HERMAN Facility:[facility] Start: 10-11-2024 End: 10-11-2024 ambulatory LEXIS ABELINO Facility:[facility] Start: 10-11-2024 End: 10-11-2024 Patient encounter procedure Lexis Roca PA-C Work Phone: Rheumatology Comment on above: Pain of right hand ( Primary Dx); Long-term use of Plaquenil; Swelling of right middle finger Start: 10-09-2024 End: 10-10-2024 Telephone encounter Lexis TURNER-C Work Phone: [place] Start: 10-05-2024 End: 12-05-2024 Follow-up encounter Elisabeth Hoff APRN.CNS Work Phone: Internal Medicine [place] Start: 10-03-2024 End: 10-03-2024 E-mail encounter from caregiver Lexis Roca PA-C Work Phone: Rheumatology Start: 10-03-2024 End: 10-03-2024 Patient encounter procedure Lexis Roca PA-C Work Phone: Rheumatology Comment on above: Upcoming Rheumatolog y Appointment Start: 10-02-2024 End: 10-02-2024 ambulatory BYRON TATER Facility:[facility] Start: 10-02-2024 End: 10-02-2024 Patient encounter procedure Byron Sutton APRN.SUPERVISOR [employer] Work Phone: Internal Medicine [place] Comment on above: Primary hypertension (Primary Dx); WALTERS (dyspnea on exertion); Asymmetric hypertrophy of ventricular septum; Heart murmur; Elevated uric acid in blood Start: 09-24-2024 End: 09-24-2024 Follow-up encounter Lexis Abelino PA-C Work Phone: Rheumatology Start: 09-21-2024 End: 09-21-2024 Follow-up encounter Lexis Abelino PA-C Work Phone: Rheumatology Comment on above: Bilateral hand pain (Primary Dx) Start: 09-20-2024 End: 09-20-2024 Telephone encounter Elisabeth Hoff APRN.CNS Work Phone: [facility] [place] Comment on above: Appointment Start: 09-20-2024 End: 09-20-2024 ambulatory LEXIS ABELINO Facility:[facility] Start: 09-20-2024 End: 09-20-2024 Subsequent hospital visit by physician Juma [facility] [place] Gutierrez Work Phone: Radiology Comment on above: Bilateral hand pain [M79.641, M79.642] Start: 09-20-2024 End: 09-20-2024 ambulatory LEXIS ABELINO Facility:[facility] Start: 09-20-2024 End: 09-20-2024 Patient encounter procedure Lexis Abelino PA-C Work Phone: Rheumatology Comment on above: Bilateral hand pain (Primary Dx); Primary osteoarthritis involving multiple joints; Raynaud's disease without gangrene; History of gastric ulcer Start: 09-12-2024 End: 09-12-2024 E-mail encounter from caregiver Lexis Abelino PA-C Work Phone: Rheumatology Start: 09-12-2024 End: 09-12-2024 Patient encounter procedure Lexis Abelino PA-C Work Phone: Rheumatology Comment on above: [facility] Appointment Start: 09-12-2024 End: 09-12-2024 Telephone encounter Lexis Abelino PA-C Work Phone: Rheumatology Comment on above: Received Outside Med ical Records ([facility] notes and labs) Start: 08-21-2024 End: 08-21-2024 ambulatory PRESTON HANEY Facility:[facility] Start: 08-21-2024 End: 08-21-2024 Subsequent hospital visit by physician Screen Mammo [facility] Comment on above: Breast cancer screen ing by mammogram [Z12.31] Start: 08-20-2024 End: 08-20-2024 E-mail encounter from caregiver Lexis Roca JOSÉ MIGUEL Work Phone: Rheumatology Start: 08-20-2024 End: 08-20-2024 Patient encounter procedure Lexis Abelino VALDEZ Work Phone: Rheumatology Comment on above: Rheumatology Appoint ment Start: 08-16-2024 End: 08-20-2024 Telephone encounter Lexis Roca APRN.CNP Work Phone: Rheumatology Comment on above: Request Outside [facility] Records Start: 08-06-2024 End: 08-13-2024 Telephone encounter Preston Haney MD Work Phone: Family Medicine [place] Comment on above: Insurance Authorizat ion Start: 07-27-2024 End: 07-27-2024 ambulatory Gavino Friend Facility:[facility] Start: 07-25-2024 End: 07-25-2024 Refill Preston Haney MD Work Phone: Internal Medicine [place] Comment on above: Refill Request Start: 07-20-2024 End: 07-20-2024 Telephone encounter Preston Haney MD Work Phone: [facility] [place] Start: 07-20-2024 End: 07-20-2024 Office outpatient visit 40 minutes Preston Haney MD Work Phone: [facility] Medicine [place] Comment on above: Primary hypertension (Primary Dx); Primary osteoarthritis involving multiple joints; Irritable bowel syndrome with both constipation and diarrhea; Mixed hyperlipidemia; IFG (impaired fasting glucose); Hyponatremia; Hypokalemia; Breast cancer screening by mammogram; Vitamin D deficiency; Cervicalgia; Encounter for immunization Start: 07-20-2024 End: 07-20-2024 ambulatory PRESTON Oxana DENISEAMPAS Facility:[facility] Start: 07-12-2024 End: 07-12-2024 ambulatory BYRON HERMAN Facility:[facility] Start: 05-30-2024 End: 05-30-2024 ambulatory Preston Oxana Debora Facility:[facility] Start: 05-25-2024 End: 05-25-2024 ambulatory Preston Oxana Deniseampcarline Facility:[facility] Start: 04-24-2024 End: 04-24-2024 ambulatory BYRON SUTTON Facility:[facility] Start: 04-24-2024 End: 04-24-2024 Patient encounter procedure Byron Herman GEOTECHNICAL ENGINEER.SUPERVISOR [employer] Work Phone: Internal Medicine [place] Comment on above: Medicare annual well ness visit, subsequent (Primary Dx); Primary hypertension; Primary osteoarthritis involving multiple joints Start: 04-20-2024 End: 04-20-2024 ambulatory Preston Oxana Denisedeclancarline Facility:[facility] Start: 03-27-2024 End: 03-27-2024 [facility] Start: 02-17-2024 End: 02-17-2024 ambulatory [facility] Facility:[facility] Start: 02-15-2024 ambulatory Mahesh aguila [facility] [place] Start: 02-15-2024 Patient encounter procedure Da janine Bello [facility] [place] Comment on above: Population Health Na [facility] Start: 01-23-2024 End: 01-23-2024 ambulatory Gavino Jay Facility:[facility] Start: 01-20-2024 End: 01-20-2024 Patient encounter procedure Byron Sutton GEOTECHNICAL ENGINEER.SUPERVISOR [employer] Work Phone: Internal Medicine [place] Comment on above: Primary hypertension (Primary Dx); Mixed hyperlipidemia; Prediabetes; Varicose veins of right lower extremity with pain; Chronic constipation; Irritable bowel syndrome with both constipation and diarrhea; Encounter for therapeutic drug level monitoring; Vitamin D deficiency Start: 12-20-2023 Telephone encounter Preston lee MD Work Phone: Family Medicine [place] Comment on above: Orders Start: 08-22-2023 Documentation procedure Mammog jesenia Coordinator [facility] Start: 08-22-2023 Letter encounter Mammography Coordinator [facility] Department Start: 08-19-2023 End: 08-19-2023 Subsequent hospital visit by physician Screen Mammo [facility] Comment on above: Breast cancer screen ing by mammogram [Z12.31] Start: 07-20-2023 End: 07-20-2023 Office outpatient visit 25 minutes Preston Haney MD Work Phone: Internal Medicine [place] Comment on above: Primary hypertension (Primary Dx); Mixed hyperlipidemia; IFG (impaired fasting glucose); Chronic constipation; Vitamin D deficiency; Redness and swelling of lower leg; Encounter for immunization; Need for shingles vaccine; Breast cancer screening by mammogram Start: 03-29-2023 End: 03-29-2023 Subsequent hospital visit by physician Diagnostic Mammo [facility] Comment on above: Microcalcifications of the breast [R92.0] Start: 12-21-2022 Telephone encounter Miah pastrana MD Work Phone: General Surgery Comment on above: Appointment; Orders Start: 09-14-2022 End: 09-14-2022 Patient encounter procedure Miah Mart MD Work Phone: General Surgery Comment on above: Microcalcifications of the breast (Primary Dx) Start: 08-30-2022 End: 08-30-[address] Preston Haney [facility] [facility] Work Phone: Start: 08-30-2022 End: 08-30-[address] Preston Haney Work Phone: [facility]Breast Imaging - Biopsy/[facility] Start: 08-19-2022 End: 08-19-[address] Preston Hanye Work Phone: [facility] Start: 08-17-2022 End: 08-17-2022 Patient encounter procedure Miah Mart MD Work Phone: General Surgery Comment on above: Microcalcifications of the breast (Primary Dx) Start: 07-14-2022 Refill Preston ellison MD Work Phone: Internal Medicine [place] Comment on above: Refill Request (Inco mplete) Refill Request Start: 07-13-2022 Telephone encounter Daniel Griffin MD Work Phone: Mammography Comment on above: Mammogram Result Ignacio l Back Start: 07-09-2022 End: 07-09-2022 Subsequent hospital visit by physician Screen Mammo [facility] M[facility] Comment on above: Encounter for screen ing mammogram for malignant neoplasm of breast [Z12.31] Start: 06-18-2022 Telephone encounter Preston lee MD Work Phone: Internal Medicine [place] Comment on above: fax information to [facility] [place] office Start: 06-11-2022 Telephone encounter Blanca fernandez MD Work Phone: URO/Gynecology Comment on above: Results Start: 06-08-2022 End: 06-08-2022 Office outpatient visit 25 minutes Elisabeth Hoff APRN.CNS Work Phone: Internal Medicine [place] Comment on above: Primary hypertension (Primary Dx); Need for shingles vaccine; Encounter for immunization; Mixed hyperlipidemia; Irritable bowel syndrome with both constipation and diarrhea; IFG (impaired fasting glucose) Start: 05-28-2022 End: 05-28-[address] Preston Haney Work Phone: [facility] Start: 03-05-2022 End: 03-05-[address] Preston Haney Work Phone: [facility] Start: 03-04-2022 End: 03-04-[address] Preston Haney Work Phone: [facility] Work Phone: Start: 03-04-2022 End: 03-04-[address] Preston Haney Work Phone: [facility]-Laboratory, Specimen Start: 02-16-2022 Telephone encounter Laura barfield APRN.SUPERVISOR [employer] Work Phone: Urogynecology Comment on above: Results Start: 01-24-2022 Telephone encounter Ailin Naranjo MD Work Phone: URO/Gynecology Comment on above: Results Start: 01-20-2022 Telephone encounter Laura Pitt x GEOTECHNICAL ENGINEER.SUPERVISOR [employer] Work Phone: Urology Comment on above: Results Start: 01-08-2022 End: 01-08-2022 Subsequent hospital visit by physician [facility] (I-Stat) Work Phone: Cat Scan Comment on above: Recurrent UTI [N39.0 ] Start: 12-23-2021 End: 12-23-[address] Preston Haney Work Phone: [facility] Start: 12-21-2021 End: 12-21-[address] Preston Haney Work Phone: [facility] Start: 12-18-2021 Telephone encounter Laura barfield APRN.SUPERVISOR [employer] Work Phone: URO/Gynecology Comment on above: Results Start: 12-15-2021 End: 12-15-2021 ambulatory BLANCA MUNOZ Facility:[facility] Start: 12-11-2021 End: 12-11-[address] Preston Haney Work Phone: [facility] Start: 12-01-2021 Telephone encounter Blanca fernandez MD Work Phone: [facility] Comment on above: Results Start: 12-01-2021 End: 12-01-2021 Office outpatient visit 40 minutes Preston Haney MD Work Phone: Internal Medicine [place] Comment on above: Essential hypertensi on (Primary [...] Start: 09-08-2021 End: 09-08-2021 ambulatory BLANCA MUNOZ Facility:[facility] Start: 08-25-2021 End: 08-25-2021 ambulatory BLANCA MUNOZ [facility] Start: 07-15-2021 ambulatory Preston ellison MD Work Phone: Internal Medicine [place] Comment on above: Fall Start: 05-29-2014 End: 02-07-2023 Patient encounter procedure Carlos Noble MD Work Phone: [facility] Procedures Date Procedure Procedure Detail Performing Clinician Start: 01-18-2025 Adult depression scr eening assessment Byron Sutton APRN.SUPERVISOR [employer] Work Phone: Start: 01-03-2025 Cardiovascular stres s test using pharmacologic stress agent Dr. Preston Haney MD Work Phone: Start: 11-26-2024 End: 11-26-2024 Computerized ophthalmic imaging retina Elia Olivares OD Work Phone: Start: 11-14-2024 Evaluation of diagno stic study results Dr. Preston Haney MD Work Phone: Start: 08-21-2024 Screening digital br [...] End: 10-08-2021 Computerized ophthalmic imaging retina Carlos Real MEEKS Work Phone: Start: 10-08-2021 Computerized corneal topography uni/bi Carlos Noble MD Work Phone: Start: 10-18-2020 Adult depression scr eening assessment Carlos Noble MD Work Phone: Urine culture Dr. Preston love Work Phone: Plan of Treatment Date Care Activity Detail Author Start: 08-24-2028 Urine microalbumin profile [facility] Start: 01-10-2028 Diabetes Screening Diabetes Screening [facility] Start: 09-21-2027 Diabetes Screening Diabetes Screening [facility] Start: 07-12-2027 Diabetes Screening Diabetes Screening [facility] Start: 01-12-2027 Diabetes Screening Diabetes Screening [facility] Start: 07-13-2026 Diabetes Screening Diabetes Screening [facility] Start: 01-31-2026 Diabetes Screening Diabetes Screening [facility] Start: 01-18-2026 Anxiety Screening Anxiety Screening [facility] Start: 01-18-2026 Depression Screening Depression Screening [facility] Start: 07-20-2025 Covid-19 Vaccine () Covid-19 Vaccine () [facility] Comment on above: Postponed from 03/11/2024 (Declined at t his time) Start: 06-08-2025 DIABETES SCREEN DIABETES SCREEN [facility] Start: 04-23-2025 End: 04-23-2025 Patient encounter procedure 04/23/2025 10:40 AM EDT Office Visit Internal Medicine [place] [address] [facility] [place] [address] Preston Haney MD [address] [place] [address] Medicare Wellness Internal Medicine [place] Comment on above: Medicare Wellness Start: 03-11-2025 Influenza vaccination Influenza Vaccine (#1) [facility] Start: 02-20-2025 End: 02-20-2025 Patient encounter procedure 02/20/2025 10:30 AM EDT Office Visit Rheumatology [address] [place] [address] Lexis Roca PA-C [address] [place] [address] 1 month follow up Rheumatology Comment on above: 1 month follow up Start: 01-19-2025 Anxiety Screening Anxiety Screening [facility] Start: 01-19-2025 Depression Screening Depression Screening [facility] Start: 01-18-2025 End: 01-18-2025 Patient encounter procedure Internal Medicine [place] Comment on above: 6 month follow up Start: 01-16-2025 End: 04-17-2025 Basic metabolic 2000 panel - Serum or Plasma BASIC METABOLIC PANEL Lab Routine Swelling of right middle finger Bilateral hand pain Pain of right hand Primary osteoarthritis involving multiple joints Raynaud's disease without gangrene History of gastric ulcer Expected: 01/16/2025, Expires: 04/17/2025 [facility] Comment on above: Expected: 01/16/2025, Expires: Start: 01-16-2025 End: 04-17-2025 C reactive protein [Mass/volume] in Serum or Plasma C-REACTIVE PROTEIN Lab Routine Pain of right hand Swelling of right middle finger Bilateral hand pain Primary osteoarthritis involving multiple joints Raynaud's disease without gangrene History of gastric ulcer Expected: 01/16/2025, Expires: 04/17/2025 [facility] Comment on above: Expected: 01/16/2025, Expires: Start: 01-16-2025 End: 04-17-2025 CBC panel - Blood by Automated count COMPLETE BLOOD COUNT Lab Routine Swelling of right middle finger Bilateral hand pain Pain of right hand Primary osteoarthritis involving multiple joints Raynaud's disease without gangrene History of gastric ulcer Expected: 01/16/2025, Expires: 04/17/2025 [facility] Comment on above: Expected: 01/16/2025, Expires: Start: 01-16-2025 End: 04-17-2025 Erythrocyte sedimentation rate SEDIMENTATION RATE, WESTERGREN Lab Routine Pain of right hand Swelling of right middle finger Bilateral hand pain Primary osteoarthritis involving multiple joints Raynaud's disease without gangrene History of gastric ulcer Expected: 01/16/2025, Expires: 04/17/2025 [facility] Comment on above: Expected: 01/16/2025, Expires: Start: 01-16-2025 End: 04-17-2025 Urate [Mass/volume] in Serum or Plasma URIC ACID Lab Routine Pain of right hand Swelling of right middle finger Bilateral hand pain Primary osteoarthritis involving multiple joints Raynaud's disease without gangrene History of gastric ulcer Expected: 01/16/2025, Expires: 04/17/2025 [facility] Work Phone: Comment on above: Expected: 01/16/2025, Expires: Start: 01-16-2025 End: 01-16-2025 Patient encounter procedure 01/16/2025 10:30 AM EDT Office Visit Rheumatology [address] [place] [address] Lexis Roca PA-C [address] [place] [address] 3 month follow up Rheumatology Comment on above: 3 month follow up Start: 12-18-2024 End: 03-19-2025 25-hydroxyvitamin D3 [Mass/volume] in Serum or Plasma VITAMIN D 25 HYDROXY Lab Routine Vitamin D deficiency Expected: 12/18/2024 (Approximate), Expires: 03/19/2025 [facility] Comment on above: Expected: 12/18/2024 (Approximate), Expi res: 03/19/2025 Start: 12-18-2024 End: 03-19-2025 CBC panel - Blood by Automated count COMPLETE BLOOD COUNT Lab Routine Primary hypertension Expected: 12/18/2024 (Approximate), Expires: 03/19/2025 [facility] Comment on above: Expected: 12/18/2024 (Approximate), Expi res: 03/19/2025 Start: 12-18-2024 End: 03-19-2025 Comprehensive metabolic 2000 panel - Serum or Plasma COMPREHENSIVE METABOLIC PANEL Lab Routine Primary hypertension IFG (impaired fasting glucose) Hyponatremia Hypokalemia Vitamin D deficiency Expected: 12/18/2024 (Approximate), Expires: 03/19/2025 [facility] Comment on above: Expected: 12/18/2024 (Approximate), Expi res: 03/19/2025 Start: 12-18-2024 End: 03-19-2025 Hemoglobin A1c in Blood HEMOGLOBIN A1C Lab Routine IFG (impaired fasting glucose) Expected: 12/18/2024 (Approximate), Expires: 03/19/2025 [facility] Comment on above: Expected: 12/18/2024 (Approximate), Expi res: 03/19/2025 Start: 12-18-2024 End: 03-19-2025 Lipid 1996 panel - Serum or Plasma LIPID PANEL BASIC Lab Routine Mixed hyperlipidemia Expected: 12/18/2024 (Approximate), Expires: 03/19/2025 [facility] Comment on above: Expected: 12/18/2024 (Approximate), Expi res: 03/19/2025 Start: 12-18-2024 End: 12-18-2024 ambulatory 12/18/2024 7:30 AM EDT Results Only [place] [facility] [address] [place] [address] [place] [facility] Start: 11-26-2024 DIABETES SCREEN DIABETES SCREEN [facility] Start: 11-26-2024 End: 11-26-2024 Patient encounter procedure 11/26/2024 8:15 AM EDT Office Visit [facility] Ophthalmology [address] [place] [address] Elia Olivares, OD [address] [place] [address] Pain of right hand [M79.641] Ophthalmology Comment on above: Pain of right hand [M79.641] Start: 11-19-2024 End: 11-19-2024 Patient encounter procedure 11/19/2024 1:30 PM EDT Office Visit Orthopaedics [address] [place] [address] Jv Brooks MD [address] [place] [address] R hand possible gout Orthopaedics Comment on above: R hand possible gout Start: 10-16-2024 End: 10-16-2024 Patient encounter procedure 10/16/2024 11:20 AM EDT Office Visit Cardiology [address] [place] [address] x: Primary hypertension [I10]; WALTERS (dyspnea on exertion) [R06.09]; Atrial septal hypertrophy [I51.7] Cardiology Comment on above: x: Primary hypertension [I10]; WALTERS (dysp tyron on exertion) [R06.09]; Atrial septal hypertrophy [I51.7] Start: 10-11-2024 End: 10-11-2024 Patient encounter procedure 10/11/2024 9:00 AM EDT Office Visit Rheumatology [address] [place] [address] Lexis Roca PA-C [address] [place] [address] 2 week follow up Rheumatology Comment on above: 2 week follow up Start: 10-09-2024 Shingrix Vaccine (3 of 3) Shingrix Vaccine (3 of 3) [facility] Start: 10-09-2024 End: 10-09-2024 Patient encounter procedure 10/09/2024 1:20 PM EDT Appointment Cat Scan [address] [place] [address] Request: CT HAND WO IVCON RIGHT Cat Scan Comment on above: Request: CT HAND WO IVCON RIGHT Start: 10-02-2024 End: 10-02-2024 Patient encounter procedure 10/02/2024 9:00 AM EDT Office Visit Internal Medicine [place] [address] [facility] [place] [address] Byron Sutton APRN.SUPERVISOR [employer] [address] [place] [address] blood pressure Internal Medicine [place] Comment on above: blood pressure Start: 09-20-2024 End: 12-20-2024 C reactive protein [Mass/volume] in Serum or Plasma [facility] Comment on above: Expected: 09/20/2024, Expires: Start: 09-20-2024 End: 12-20-2024 Cyclic citrullinated peptide IgG Ab [Units/volume] in Serum or Plasma [facility] Comment on above: Expected: 09/20/2024, Expires: Start: 09-20-2024 End: 12-20-2024 Erythrocyte sedimentation rate [facility] Comment on above: Expected: 09/20/2024, Expires: Start: 09-20-2024 End: 12-20-2024 Extractable nuclear Ab panel - Serum [facility] Work Phone: Comment on above: Expected: 09/20/2024, Expires: Start: 09-20-2024 End: 12-20-2024 Rheumatoid factor [Units/volume] in Serum or Plasma [facility] Comment on above: Expected: 09/20/2024, Expires: Start: 09-20-2024 End: 09-20-2024 Patient encounter procedure 09/20/2024 9:30 AM EDT Office Visit Rheumatology [address] [place] [address] Lexis Roca PA-C [address] [place] [address] 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] Rheumatology Comment on above: Primary osteoarthritis involving multipl e joints [M15.0] Start: 08-23-2024 End: 08-23-2024 Patient encounter procedure Rheumatology Comment on above: Primary osteoarthritis involving multipl e joints [M15.0] Start: 08-21-2024 End: 08-21-2024 Patient encounter procedure 08/21/2024 9:10 AM EST Appointment Mammogram [address] [place] [address] Breast cancer screening by mammogram [Z12.31] Mammogram Comment on above: Breast cancer screening by mammogram [Z1 2.31] Start: 07-20-2024 Covid-19 Vaccine () Covid-19 Vaccine () [facility] Comment on above: Postponed from 03/11/2023 (Declined at t his time) Start: 07-20-2024 End: 07-20-2024 Patient encounter procedure 07/20/2024 9:40 AM EST Office Visit Internal Medicine [place] [address] [facility] [place] [address] Preston Haney MD [address] [facility] [address] 6 month follow up Internal Medicine [place] Comment on above: 6 month follow up Start: 07-16-2024 End: 10-15-2024 25-hydroxyvitamin D3 [Mass/volume] in Serum or Plasma VITAMIN D 25 HYDROXY Lab Routine Vitamin D deficiency Expected: 07/16/2024, Expires: 10/15/2024 [facility] Comment on above: Expected: 07/16/2024, Expires: Start: 07-16-2024 End: 10-15-2024 CBC W Auto Differential panel - Blood COMPLETE BLOOD COUNT AND DIFFERENTIAL Lab Routine Encounter for therapeutic drug level monitoring Expected: 07/16/2024, Expires: 10/15/2024 [facility] Work Phone: Comment on above: Expected: 07/16/2024, Expires: Start: 07-16-2024 End: 10-15-2024 Comprehensive metabolic 2000 panel - Serum or Plasma COMPREHENSIVE METABOLIC PANEL Lab Routine Encounter for therapeutic drug level monitoring Expected: 07/16/2024, Expires: 10/15/2024 [facility] Comment on above: Expected: 07/16/2024, Expires: Start: 07-16-2024 End: 10-15-2024 Hemoglobin A1c in Blood HEMOGLOBIN A1C Lab Routine Prediabetes Expected: 07/16/2024, Expires: 10/15/2024 [facility] Comment on above: Expected: 07/16/2024, Expires: Start: 07-16-2024 End: 10-15-2024 Lipid 1996 panel - Serum or Plasma LIPID PANEL BASIC Lab Routine Mixed hyperlipidemia Expected: 07/16/2024, Expires: 10/15/2024 [facility] Comment on above: Expected: 07/16/2024, Expires: Start: 07-11-2024 Medicare Advantage Annual Wellness Visit Medicare Advantage Annual Wellness Visit [facility] Start: 05-02-2024 DIABETES SCREEN DIABETES SCREEN [facility] Start: 04-24-2024 End: 04-24-2024 Patient encounter procedure Internal Medicine [place] Comment on above: 3 month follow up Annual Wellness - 3 month follow up Start: 03-11-2024 Covid-19 Vaccine ( season) Covid-19 Vaccine () [facility] Start: 03-11-2024 [facility]enza [facility] Start: 01-20-2024 End: 01-20-2024 Patient encounter procedure 01/20/2024 10:00 AM EDT Office Visit Internal Medicine [place] [address] [place], [place] [id number] Byron Sutton APRN.SUPERVISOR [employer] [address] [place], [place] [address] 6 Month follow up Internal Medicine [place] Comment on above: 6 Month follow up Start: 01-18-2024 End: 04-18-2024 25-hydroxyvitamin D3 [Mass/volume] in Serum or Plasma VITAMIN D 25 HYDROXY Lab Routine Vitamin D deficiency Expected: 01/18/2024 (Approximate), Expires: 04/18/2024 [facility] Work Phone: Comment on above: Expected: 01/18/2024 (Approximate), Expi res: 04/18/2024 Start: 01-18-2024 End: 04-18-2024 CBC panel - Blood by Automated count CBC Lab Routine Primary hypertension Expected: 01/18/2024 (Approximate), Expires: 04/18/2024 [facility] Work Phone: Comment on above: Expected: 01/18/2024 (Approximate), Expi res: 04/18/2024 Start: 01-18-2024 End: 04-18-2024 Comprehensive metabolic 2000 panel - Serum or Plasma COMP METABOLIC PANEL Lab Routine Primary hypertension IFG (impaired fasting glucose) Expected: 01/18/2024 (Approximate), Expires: 04/18/2024 [facility] Work Phone: Comment on above: Expected: 01/18/2024 (Approximate), Expi res: 04/18/2024 Start: 01-18-2024 End: 04-18-2024 Hemoglobin A1c in Blood HGB A1C Lab Routine IFG (impaired fasting glucose) Expected: 01/18/2024 (Approximate), Expires: 04/18/2024 [facility] Work Phone: Comment on above: Expected: 01/18/2024 (Approximate), Expi res: 04/18/2024 Start: 01-18-2024 End: 04-18-2024 Lipid 1996 panel - Serum or Plasma LIPID PANEL BASIC Lab Routine Mixed hyperlipidemia Expected: 01/18/2024 (Approximate), Expires: 04/18/2024 [facility] Work Phone: Comment on above: Expected: 01/18/2024 (Approximate), Expi res: 04/18/2024 Start: 07-11-2023 Advance Directive Discussion Advance Directive Discussion [facility] Start: 07-11-2023 Behavioral Health Screening Behavioral Health Screening [facility] Start: 06-08-2023 BP CONTROLLED (<130/80) BP CONTROLLED (<130/80) [facility] Start: 03-11-2023 Covid-19 Vaccine ( season) Covid-19 Vaccine ( season) [facility] Start: 03-11-2023 Influenza vaccination [facility] Start: 12-15-2022 BP CONTROLLED (<130/80) BP CONTROLLED (<130/80) [facility] Start: 12-06-2022 End: 02-05-2023 CBC W Auto Differential panel - Blood CBC + DIFF Lab Routine Primary hypertension Irritable bowel syndrome with both constipation and diarrhea Expected: 12/06/2022 (Approximate), Expires: 02/05/2023 [facility] Work Phone: Comment on above: Expected: 12/06/2022 (Approximate), Expi res: 02/05/2023 Start: 12-06-2022 End: 02-05-2023 Comprehensive metabolic 2000 panel - Serum or Plasma COMP METABOLIC PANEL Lab Routine Primary hypertension Mixed hyperlipidemia Irritable bowel syndrome with both constipation and diarrhea IFG (impaired fasting glucose) Expected: 12/06/2022 (Approximate), Expires: 02/05/2023 [facility] Work Phone: Comment on above: Expected: 12/06/2022 (Approximate), Expi res: 02/05/2023 Start: 12-06-2022 End: 02-05-2023 Hemoglobin A1c in Blood HGB A1C Lab Routine IFG (impaired fasting glucose) Expected: 12/06/2022 (Approximate), Expires: 02/05/2023 [facility] Work Phone: Comment on above: Expected: 12/06/2022 (Approximate), Expi res: 02/05/2023 Start: 12-06-2022 End: 02-05-2023 Lipid 1996 panel - Serum or Plasma LIPID PANEL BASIC Lab Routine Mixed hyperlipidemia Expected: 12/06/2022 (Approximate), Expires: 02/05/2023 [facility] Work Phone: Comment on above: Expected: 12/06/2022 (Approximate), Expi res: 02/05/2023 Start: 12-01-2022 Adult depression screening assessment DEPRESSION SCREENING [facility] Start: 12-01-2022 ANNUAL PCP TEAM CHRONIC DISEASE VISIT ANNUAL PCP TEAM CHRONIC DISEASE VISIT [facility] Start: 07-18-2022 ANNUAL PCP TEAM CHRONIC DISEASE VISIT ANNUAL PCP TEAM CHRONIC DISEASE VISIT [facility] Start: 07-12-2022 SHINGRIX VACCINE (2 of 3) SHINGRIX VACCINE (2 of 3) [facility] Comment on above: Postponed from 07/06/2013 (Insurance Cov erage) Start: 07-11-2022 ADVANCE DIRECTIVE DISCUSSION ADVANCE DIRECTIVE DISCUSSION [facility] Start: 07-11-2022 DEPRESSION ASSESSMENT DEPRESSION ASSESSMENT [facility] Start: 06-08-2022 End: 08-08-2022 CBC W Auto Differential panel - Blood [facility] Work Phone: Comment on above: Expected: 06/08/2022, Expires: 3 Start: 06-08-2022 End: 08-08-2022 Comprehensive metabolic 2000 panel - Serum or Plasma [facility] Work Phone: Comment on above: Expected: 06/08/2022, Expires: 3 Start: 06-08-2022 End: 08-08-2022 Hemoglobin A1c in Blood [facility] Work Phone: Comment on above: Expected: 06/08/2022, Expires: 3 Start: 06-08-2022 End: 08-08-2022 LIPID PANEL, NONFASTING [facility] Work Phone: Comment on above: Expected: 06/08/2022, Expires: 3 Start: 03-11-2022 Influenza vaccination INFLUENZA (#1) [facility] Start: 01-21-2022 End: 01-20-2023 Bacteria identified in Urine by Culture URINE CULTURE Microbiology Routine UTI symptoms Expected: 01/21/2022 (Approximate), Expires: 01/20/2023 [facility] Work Phone: Comment on above: Expected: 01/21/2022 (Approximate), Expi res: 01/20/2023 Start: 10-22-2021 SHINGRIX VACCINE (2 of 3) SHINGRIX VACCINE (2 of 3) [facility] Comment on above: Postponed from 07/06/2013 (Insurance Cov erage) Start: 10-18-2021 Adult depression screening assessment DEPRESSION SCREENING [facility] Start: 09-07-2021 COVID-19 VACCINE (4 - Booster for Pfizer series) COVID-19 VACCINE (4 - Booster for Pfizer series) [facility] Start: 07-11-2021 ADVANCE DIRECTIVE DISCUSSION ADVANCE DIRECTIVE DISCUSSION [facility] Start: 03-31-2021 BP CONTROLLED (<130/80) BP CONTROLLED (<130/80) [facility] Start: 2016 RSV Vaccine (1 - 1-dose 75+ series) RSV Vaccine (1 - 1-dose 75+ series) [facility] Start: 07-06-2013 Shingrix Vaccine (1 of 2) Shingrix Vaccine (1 of 2) [facility] Start: 07-06-2013 SHINGRIX VACCINE (2 of 3) SHINGRIX VACCINE (2 of 3) [facility] Start: 2001 RSV Vaccine (1 - 1-dose 60+ series) RSV Vaccine (1 - 1-dose 60+ series) [facility] Bacteria identified in Urine by Culture URINE CULTURE Microbiology Routine Dysuria Ordered: 01/24/2022 [facility] Work Phone: Comment on above: Ordered: 01/24/2022 End: 10-24-2025 CT Hand - right WO contrast CT HAND WO IVCON RIGHT Radiology Routine Pain of right hand 1 Occurrences starting 09/24/2024 until 10/24/2025 [facility] Work Phone: Comment on above: 1 Occurrences starting 09/24/2024 until 10/24/2025 DBT Breast - bilater al screening CESAR SCREENING W RIVAS Radiology Routine Breast cancer screening by mammogram 08/19/2023 9:57 AM EST [facility] [facility] Work Phone: End: 08-18-2024 DBT Breast - bilateral screening CESAR SCREENING [facility]AS Radiology Routine Breast cancer screening by mammogram 1 Occurrences starting 07/20/2023 until 08/18/2024 [facility] Work Phone: Comment on above: 1 Occurrences starting 07/20/2023 until 08/18/2024 End: 08-19-2025 DBT Breast - bilateral screening CESAR SCREENING [facility] Radiology Routine Breast cancer screening by mammogram 1 Occurrences starting 07/20/2024 until 08/19/2025 [facility] Work Phone: Comment on above: 1 Occurrences starting 07/20/2024 until 08/19/2025 End: 10-02-2025 Echocardiography ECHO Cardiology Routine Primary hypertension WALTERS (dyspnea on exertion) Asymmetric hypertrophy of ventricular septum 1 Occurrences starting 10/02/2024 until 10/02/2025 [facility] Work Phone: Comment on above: 1 Occurrences starting 10/02/2024 until 10/02/2025 End: 01-22-2024 CESAR DIAGNOSTIC LEFT CESAR DIAGNOSTIC LEFT Radiology Routine Microcalcifications of the breast 1 Occurrences starting 12/23/2022 until 01/22/2024 [facility] Work Phone: Comment on above: 1 Occurrences starting 12/23/2022 until 01/22/2024 End: 10-20-2025 XR Foot - bilateral AP and Lateral and oblique XR FOOT GENERAL 3V AP/LAT/OBL BILATERAL Radiology Routine Primary osteoarthritis involving multiple joints Raynaud's disease without gangrene History of gastric ulcer Bilateral hand pain 1 Occurrences starting 09/20/2024 until 10/20/2025 [facility] Comment on above: 1 Occurrences starting 09/20/2024 until 10/20/2025 XR Foot - bilateral AP and Lateral and oblique XR FOOT GENERAL 3V AP/LAT/OBL BILATERAL Radiology Routine Primary osteoarthritis involving multiple joints Raynaud's disease without gangrene Shortness of breath Neuropathy History of gastric ulcer Bilateral hand pain 09/20/2024 11:00 AM EDT [facility] End: 10-20-2025 XR Hand - bilateral PA and Lateral and Oblique XR HAND GENERAL 3V PA/LAT/OBL BILATERAL Radiology Routine Bilateral hand pain 1 Occurrences starting 09/20/2024 until 10/20/2025 [facility] Comment on above: 1 Occurrences starting 09/20/2024 until 10/20/2025 XR Hand - bilateral PA and Lateral and Oblique XR HAND GENERAL 3V PA/LAT/OBL BILATERAL Radiology Routine Bilateral hand pain 09/20/2024 11:01 AM EDT [facility] Immunizations Immunization Date Immunization Notes Care Provider Ricki gavin 10-20-2024 zoster vaccine recombinant Byron Sutton GEOTECHNICAL ENGINEER.SUPERVISOR [employer] Work Phone: [facility] 08-14-2024 respiratory syncytia l virus (RSV) vaccine, bivalent (ABRYSVO) Elia Olivares OD Work Phone: [facility] 08-14-2024 zoster vaccine recombinant Elia Olivares OD Work Phone: [facility] 05-07-2024 influenza, high dose seasonal, preservative-free Preston Haney MD Work Phone: [facility] 05-07-2024 influenza virus vacc ine, unspecified formulation Lexis Roca PA-C Work Phone: [facility] 05-11-2023 influenza, high dose seasonal, preservative-free Screen [facility] 05-11-2023 influenza virus vacc ine, unspecified formulation Byron Sutton APRN.SUPERVISOR [employer] Work Phone: [facility] 06-06-2022 COVID-19 booster vaccine, age 12+ yr, bivalent (PFIZER-BIONTECH) Elisabeth Hoff GEOTECHNICAL ENGINEER.TOWING PILOT Work Phone: [facility] Work Phone: 04-24-2022 influenza, high-dose , quadrivalent vaccine (FLUZONE HIGH DOSE QUADRIVALENT) Elisabeth Hoff APRN.TOWING PILOT Work Phone: [facility] Work Phone: 04-24-2022 influenza virus vacc ine, unspecified formulation Diagnostic [facility] 05-04-2021 influenza, high-dose , quadrivalent vaccine (FLUZONE HIGH DOSE QUADRIVALENT) Carlos Noble MD Work Phone: [facility] 09-24-2020 COVID-19 vaccine, ag e 12+ yr (PFIZER-BIONTECH - PURPLE TOP) Carlos See Work Phone: [facility] 09-01-2020 COVID-19 vaccine, ag e 12+ yr (PFIZER-BIONTECH - PURPLE TOP) Carlos See Work Phone: [facility] 05-01-2020 influenza virus vacc ine, unspecified formulation Carlos See MD Work Phone: [facility] 04-15-2019 influenza virus vacc ine, unspecified formulation Carlos See MD Work Phone: [facility] 04-15-2019 influenza, high dose seasonal, preservative-free Carlos See MD Work Phone: [facility] 08-24-2018 tetanus toxoid, redu diana diphtheria toxoid, and acellular pertussis vaccine, adsorbed Carlos See Work Phone: [facility] 04-16-2018 influenza virus vacc ine, unspecified formulation Carlos See Work Phone: [facility] 04-24-2016 influenza, high dose seasonal, preservative-free Carlos See Work Phone: [facility] 06-16-2015 pneumococcal conjuga te vaccine, 13 valent Carlos See Work Phone: [facility] 04-14-2015 influenza, seasonal, injectable Carlos See Work Phone: [facility] 04-14-2014 influenza, seasonal, injectable Carlos See Work Phone: [facility] 05-11-2013 zoster vaccine, live Carlos lundberg MD Work Phone: [facility] 04-10-2013 influenza virus vacc ine, unspecified formulation Carlos See Work Phone: [facility] 04-27-2012 influenza virus vacc ine, unspecified formulation Carlos See Work Phone: [facility] Work Phone: 04-21-2010 influenza virus vacc ine, unspecified formulation Carlos See Work Phone: [facility] 05-08-2009 influenza virus vacc ine, unspecified formulation Carlos See MD Work Phone: [facility] Work Phone: 07-07-2007 diphtheria and tetan us toxoids, adsorbed for pediatric use Carlos See MD Work Phone: [facility] Work Phone: 07-07-2007 pneumococcal polysaccharide vaccine, 23 valent Carlos See MD Work Phone: [facility] Work Phone: 05-16-2007 influenza virus vacc ine, unspecified formulation Carlos See MD Work Phone: [facility] 06-14-2006 influenza virus vacc ine, unspecified formulation Carlos See Work Phone: [facility] Work Phone: 06-10-2002 influenza virus vacc ine, unspecified formulation Carlos See Work Phone: [facility] Work Phone: 03-11-2000 pneumococcal polysaccharide vaccine, 23 valent Carlos See Work Phone: [facility] Work Phone: 04-15-1998 diphtheria and tetan us toxoids, adsorbed for pediatric use Carlos See Work Phone: [facility] Work Phone: Payers Date Payer Category Payer Medicare (Managed Care) O ROSA MARIA DVANTAGE O [id number] 2024 Medicare [id number] 2024 Self-pay [id number] 2022 Unknown [id number] 2022 Unknown [id number] 2021 Medicare HUMANA MEDICARE HUMANA MEDICARE PPO [id number] 2021-Present [id number] [place] [address] PPO [id number] 2021 Medicare [id number] 2021 Medicare [id number] Private Health Insurance CLI [id number] Private Health Insurance [id number] Unknown [id number] Unknown [id number] Unknown [id number] Unknown [id number] Unknown [id number] Unknown [id number] Unknown [id number] Unknown [id number] Unknown [id number] Unknown [id number] Unknown [id number] Unknown [id number] Unknown [id number] Social History Date Type Detail Facility Start: 09-06-2011 End: 06-08-2022 Tobacco smoking status NHIS Never smoked tobacco [facility] Start: 10-08-2021 End: 01-18-2025 Alcohol intake Current non-drinker of alcohol (finding) [facility] Start: 12-20-2019 End: 06-07-2022 History SDOH Alcohol Frequency 1 [facility] Start: 12-20-2019 End: 03-26-2020 History SDOH Alcohol Std Drinks 98 [facility] Start: 08-20-2019 End: 06-07-2022 History SDOH Social Connections Phone 5 [facility] Start: 08-20-2019 End: 06-07-2022 History SDOH Social Connections Meetings 3 [facility] Start: 03-26-2020 History SDOH Physica l Activity DPW 6 [facility] Start: 08-20-2019 End: 06-07-2022 History SDOH Stress 2 [facility] Start: 03-26-2020 Education 12 [facility] Start: 1940 Sex Assigned At Female C [facility] Start: 09-19-2021 End: 06-08-2022 Exposure to SARS-CoV-2 (event) Not sure [facility] Start: 12-11-2021 End: 08-19-2022 Tobacco smoking status NHIS Unknown if ever smoked [facility] Start: 09-06-2011 End: 06-08-2022 Tobacco use and exposure Smokeless tobacco non-user [facility] Start: 06-07-2022 History SDOH Alcohol Std Drinks 0 [facility] Start: 06-07-2022 History SDOH Financial 4 [facility] Start: 06-07-2022 End: 02-07-2023 History of Social function [facility] Start: 06-07-2022 End: 02-07-2023 Social connection and isolation panel [facility] Do you belong to any clubs or organizations such as gnosticism groups, unions, fraternal or athletic groups, or school groups? Yes [facility] Are you now , , , , never or living with a partner? [facility] How often to you hav e a drink containing alcohol? Never [facility] How many standard dr inks containing alcohol do you have on a typical day? Patient does not drink [facility] How hard is it for y ou to pay for the very basics like food, housing, medical care, and heating Not very hard [facility] Do you feel stress - tense, restless, nervous, or anxious, or unable to sleep at night because your mind is troubled all the time - these days [OSQ] Only a little [facility] (I/We) worried akilah er (my/our) food would run out before (I/we) got money to buy more. Never true [facility] In the past 12 month s, was there a time when you were not able to pay the mortgage or rent on time? No [facility] Start: 02-12-2019 Gender identity Identifies as female gender (finding) [facility] Functional Status Date Assessment Result Facility 12-05-2014 Are you deaf, or do you have serious difficulty hearing No 12/05/2014 12:33 PM Cayla Simpson RN No [facility] Work Phone: 12-05-2014 Are you blind, or do you have serious difficulty seeing, even when wearing glasses No 12/05/2014 12:33 PM Cayla Simpson RN No [facility] 12-05-2014 Do you have serious difficulty walking or climbing stairs No 12/05/2014 12:33 PM Cayla Simpson RN No [facility] 12-05-2014 Do you have difficul ty dressing or bathing No 12/05/2014 12:33 PM EDCayla Cohen RN No [facility] 12-05-2014 Because of a physica l, mental, or emotional condition, do you have difficulty doing errands alone such as visiting a physician's office or shopping No 12/05/2014 12:33 PM EDCayla Cohen RN No [facility] Mental Status Date Assessment Result Facility 12-05-2014 Because of a physica l, mental, or emotional condition, do you have serious difficulty concentrating, remembering, or making decisions No 12/05/2014 12:33 PM EDCayla Cohen RN No [facility] Clinical Notes 04-21-2010 to 01-18-2025 Byron Sutton APRN.SUPERVISOR [employer] - 01/18/2025 9:52 AM Lexis Jaramillo PA-C - 01/16/2025 10:39 AM Elia Phillips OD - 11/26/2024 10:26 AM EDTPatient Instructions Note Date & Type Note Facility 01-18-2025 Note HNO ID: [id number] Author: BYRON SUTTON APRN.SUPERVISOR [employer] Service: ? Author Type: Nurse Practitioner Type: Progress Notes Filed: 01/18/2025 10:47 Note Text: SUBJECTIVE Concepcion Donaldson is a 84 year old female here today for a check up on her medical problems. Chief Complaint Patient presents with: F/U 6 Month HPI Concepcion Donaldson is a 84-year-old female with a history of dyspnea, presenting for follow-up after an abnormal nuclear stress test and upcoming cardiac catheterization. Concepcion reports dyspnea on exertion, particularly when ascending stairs or carrying a laundry basket. She notes that after approximately two trips up the stairs, she experiences noticeable changes in her breathing. She has been experiencing these symptoms for some time and has reported them to her healthcare providers. She recently underwent a nuclear stress test, which revealed ST changes. Her ejection fraction was reported as 56%. Based on these findings, her welt treater, Dr. Pereira, has recommended a cardiac catheterization, which is scheduled for Tuesday at 0700. Concepcion expresses some anxiety about the procedure, particularly due to a past traumatic experience with her late 's cardiac surgery. She is aware that the procedure will likely be performed via the wrist rather than the groin and has been informed about the potential need for a stent or other interventions. Concepcion also reports recent changes in her antihypertensive medication, specifically the removal of a diuretic component from her lisinopril. She notes that her blood pressure has been well-controlled since the change. She also mentions an increase in her pulse rate with exertion, such as walking or climbing stairs. In addition to her cardiac issues, Concepcion has a history of sciatica and disc problems, for which she wears a brace and receives health care attorney every 4-5 weeks. She also mentions ongoing responsibilities, such as caring for her granddaughter, which involve physical activity like gardening. Her medications were reviewed today and her list is now up to date. Medications Current Outpatient Medications Medication Sig lisinopril (ZESTRIL) 20 mg tablet Take 20 mg by mouth two times a day. allopurinol (ZYLOPRIM) 100 mg tablet Take 1 tablet by mouth once daily. amLODIPine (NORVASC) 5 mg tablet Take 1 tablet by mouth once daily. calcium carbonate (CALTRATE) 600 mg calcium (1,500 mg) tab Take 1,200 mg by mouth once daily. omeprazole (PRILOSEC) 20 mg capsule Take 1 capsule by mouth two times a day. 1/2 HR BEFORE MEAL. nortriptyline (PAMELOR) 25 mg capsule Take 1 capsule by mouth daily at bedtime. calcitriol (ROCALTROL) 0.25 mcg capsule Take 1 capsule by mouth once daily. lovastatin 40 mg tablet Take 1 tablet [...] THERAPEUTIC MULTIVITAMIN TAB Take one(1) tablet daily. colchicine 0.6 mg tablet Take 1 tablet by mouth once daily. estradiol (ESTRACE) 0.01 [...] [Celecoxib] Rash Grass Pollen scratchy throat Nitrofurantoin [place]* Intolerance Stomach pain Penicillins Hives Sucralfate Rash Generalized red rash; itching back of neck. Saw geophysical support specialist ACTIVE PROBLEM LIST Spinal Stenosis of Lumbar [...] 01/12/2006 Primary Osteoarthritis Involving Multiple Joints - 01/12 (more content not included)... [facility] 01-18-2025 History of Present illness Narrative SUBJECTIVE Concepcion Donaldson is a 84 year old female here today for a check up on her medical problems. Chief Complaint Patient presents with: F/U 6 Month HPI Concepcion Donaldson is a 84-year-old female with a history of dyspnea, presenting for follow-up after an abnormal nuclear stress test and upcoming cardiac catheterization. Concepcion reports dyspnea on exertion, particularly when ascending stairs or carrying a laundry basket. She notes that after approximately two trips up the stairs, she experiences noticeable changes in her breathing. She has been experiencing these symptoms for some time and has reported them to her healthcare providers. She recently underwent a nuclear stress test, which revealed ST changes. Her ejection fraction was reported as 56%. Based on these findings, her welt treater, Dr. Pereira, has recommended a cardiac catheterization, which is scheduled for Tuesday at 0700. Concepcion expresses some anxiety about the procedure, particularly due to a past traumatic experience with her late 's cardiac surgery. She is aware that the procedure will likely be performed via the wrist rather than the groin and has been informed about the potential need for a stent or other interventions. Concepcion also reports recent changes in her antihypertensive medication, specifically the removal of a diuretic component from her lisinopril. She notes that her blood pressure has been well-controlled since the change. She also mentions an increase in her pulse rate with exertion, such as walking or climbing stairs. In addition to her cardiac issues, Concepcion has a history of sciatica and disc problems, for which she wears a brace and receives health care attorney every 4-5 weeks. She also mentions ongoing responsibilities, such as caring for her granddaughter, which involve physical activity like gardening. Her medications were reviewed today and her list is now up to date. Medications Current Outpatient Medications Medication Sig lisinopril (ZESTRIL) 20 mg tablet Take 20 mg by mouth two times a day. allopurinol (ZYLOPRIM) 100 mg tablet Take 1 tablet by mouth once daily. amLODIPine (NORVASC) 5 mg tablet Take 1 tablet by mouth once daily. calcium carbonate (CALTRATE) 600 mg calcium (1,500 mg) tab Take 1,200 mg by mouth once daily. omeprazole (PRILOSEC) 20 mg capsule Take 1 capsule by mouth two times a day. 1/2 HR BEFORE MEAL. nortriptyline (PAMELOR) 25 mg capsule Take 1 capsule by mouth daily at bedtime. calcitriol (ROCALTROL) 0.25 mcg capsule Take 1 capsule by mouth once daily. lovastatin 40 mg tablet Take 1 tablet [...] THERAPEUTIC MULTIVITAMIN TAB Take one(1) tablet daily. colchicine 0.6 mg tablet Take 1 tablet by mouth once daily. estradiol (ESTRACE) 0.01 [...] [Celecoxib] Rash Grass Pollen scratchy throat Nitrofurantoin [place]* Intolerance Stomach pain Penicillins Hives Sucralfate Rash Generalized red rash; itching back of neck. Saw geophysical support specialist ACTIVE PROBLEM LIST Spinal Stenosis of Lumbar [...] Drug use: No Review of Systems Constitutional: Positive for fatigue. Respiratory: Positive for shortness of breath. Negative for cough, chest tightness and wheezing. Cardiovascular: Positive for palpitations. Negative for chest pain and leg swelling. OBJECTIVE BP 126/66 Pulse 92 Resp 16 Wt 160 lb 15 oz (73.0kg) Physical Exam Vitals and nursing note reviewed. [...] memory normal. Judgment: Judgment normal. ASSESSMENT/PLAN: 1. Mixed hyperlipidemia (E78.2) Clinically stable. - Continue current management. 2. Primary hypertension (I10) Blood pressure is well-controlled with current medication regimen. - Continue current antihypertensive therapy. 3. 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 - Continue monitoring. 4. Abnormal stress test (R94.39) Nuclear stress test revealed ST changes and an ejection fraction of 56%, which is at the lower end of normal. Indicative of some degree of coronary artery blockage. - Undergo scheduled cardiac catheterization on Tuesday at 0700 to assess the severity of coronary artery disease and determine the need for potential interventions such as stenting or angioplasty. - Educated patient on the procedure, including the preference for radial artery access over femoral access to reduce recovery time and complications. - Advised patient to prepare for a possible overnight hospital stay if additional interventions are required. - Patient to update the clinic on the outcomes of the cardiac catheterization. 5. Screening for depression (Z13.31) 6. Encounter for screening examination for other mental health and behavioral disorders (Z13.39) 7. Primary osteoarthritis involving multiple joints (M15.0) Chronic back pain managed with a brace and regular health care attorney every 4-5 weeks. - Continue current management. 8. Raynaud's disease without gangrene (I73.00) Follows with rheumatology Recording using [employer] software for draft documentation of the visit was discussed with the patient/authorized sales representative consultant; all questions welcomed and answered. Patient/authorized sales representative consultant agreed to proceed Portions of this note have been entered [...] preventative measures were discussed. Return in about 4 months (around 05/21/2025) for medicare wellness. Byron Sutton APRN-HEYDI documented in this encounter [facility] 01-16-2025 Note HNO ID: [id number] Author: LEXIS ROCA PA-C Service: ? Author Type: Physician Credit Risk Management Director Type: Progress Notes Filed: 01/16/2025 13:24 Note Text: Rheumatology FOLLOW UP VISIT Date of Service: 01/16/2025 Patient: Concepcion Donaldson Medical Record: [id number] Primary Care Physician: Preston Haney MD Last Rheumatology visit: None at [facility] History of Present Illness Concepcion Donaldson is a 84 year old White female who presents on 01/16/2025 for an in-person visit for evaluation of Follow Up. Concepcion reports a current pain level of 5 (Generalized). She describes the pain as Aching. The pain is Intermittent . Interventions tried include Heat. Concepcion is both RF - 9 (09/20/2024) and CCP - 13.5 (09/20/2024) negative. Her most recent ANNIE was negative (06/17/2015). Concepcion reports worsening joint pain and swelling and limited mobility over the past 3 months despite daily use of Plaquenil. She notes increased sensitivity and a stinging sensation in the left ring finger, particularly when touched or bumped. Additionally, she has developed a new nodule on the R middle finger in the last few days. Pain is described as intermittent, sometimes throbbing, and is primarily in the left ring finger and right middle finger. It is exacerbated by movement and touch but is not always present at rest. She denies shooting pain but describes tenderness when pressure is applied directly to the joints. Concepcion reports significant limitations in hand mobility, including difficulty squeezing a washcloth or dishcloth. She notes that the pain is not the primary issue; rather, it is the loss of mobility that concerns her. She occasionally takes Tylenol for pain and will use ibuprofen for short periods if experiencing a flare-up but prefers to avoid prolonged use. She recalls some temporary 50% relief with prednisone in the past but states that no treatment has significantly reduced the swelling or improved mobility. She denies any improvement since starting Plaquenil and feels that her condition has worsened, with additional lumps and decreased hand mobility. Concepcion has a history of spinal stenosis and minimal intervertebral space, contributing to back pain. She also has a history of a heart murmur and recent abnormal nuclear stress test results showing ST changes. She experiences fatigue, dyspnea on exertion, and ankle swelling. Family history is significant for CAD; her father had an ME, her mother had CHF, and her brother also had an ME. Pain Evaluation 08/19/2024 09/20/2024 11/19/2024 01/10/2025 01/16/2025 Pain Evaluation Pain Score 4 4 6 2 5 5 Location Finger Hand-Right -- Generalized Location Comment bilateral hands Description Aching;Phantom;Stabbing;Stiffness Aching Aching Aching;Radiating;Stiffness Aching Duration (#) 1 4 Duration (Timeframe) Weeks Years Years Minutes Frequency Intermittent Continuous Continuous Intermittent Intermittent Intervention Heat Medication Heat Patient-Entered Data PROMIS Assessments 02/06/2023 07/14/2023 [...] (moderate dysfunction) Physical Function Percentile 14 14 Oh Activities of Daily Living 01/10/2025 7:34 AM 09/14/2024 10:29 AM 08/19/2024 3:32 PM Dress self? Without ANY difficulty Without ANY difficulty Without ANY difficulty Get in and out of bed? Without ANY difficulty Without ANY difficulty Without ANY difficulty Walk outdoors? With SOME difficulty With SOME difficulty With SOME difficulty Wash and dry body? Without ANY difficulty Without ANY difficulty Without ANY difficulty Get in and out of car? Without ANY difficulty Without ANY difficulty Without ANY difficulty RAPID [...] with breathing GASTROINTESTINAL: Negative for: Melena, Diarrhea, Heartbur (more content not included)... [facility] 01-16-2025 History of Present illness Narrative Images from the original note were not included. Rheumatology FOLLOW UP VISIT Date of Service: 01/16/2025 Patient: Concepcion Donaldson Medical Record: [id number] Primary Care Physician: Preston Hanye MD Last Rheumatology visit: None at [facility] History of Present Illness Concepcion Donaldson is a 84 year old White female who presents on 01/16/2025 for an in-person visit for evaluation of Follow Up. Concepcion reports a current pain level of 5 (Generalized). She describes the pain as Aching. The pain is Intermittent . Interventions tried include Heat. Concepcion is both RF - 9 (09/20/2024) and CCP - 13.5 (09/20/2024) negative. Her most recent ANNIE was negative (06/17/2015). Concepcion reports worsening joint pain and swelling and limited mobility over the past 3 months despite daily use of Plaquenil. She notes increased sensitivity and a stinging sensation in the left ring finger, particularly when touched or bumped. Additionally, she has developed a new nodule on the R middle finger in the last few days. Pain is described as intermittent, sometimes throbbing, and is primarily in the left ring finger and right middle finger. It is exacerbated by movement and touch but is not always present at rest. She denies shooting pain but describes tenderness when pressure is applied directly to the joints. Concepcion reports significant limitations in hand mobility, including difficulty squeezing a washcloth or dishcloth. She notes that the pain is not the primary issue; rather, it is the loss of mobility that concerns her. She occasionally takes Tylenol for pain and will use ibuprofen for short periods if experiencing a flare-up but prefers to avoid prolonged use. She recalls some temporary 50% relief with prednisone in the past but states that no treatment has significantly reduced the swelling or improved mobility. She denies any improvement since starting Plaquenil and feels that her condition has worsened, with additional lumps and decreased hand mobility. Conecpcion has a history of spinal stenosis and minimal intervertebral space, contributing to back pain. She also has a history of a heart murmur and recent abnormal nuclear stress test results showing ST changes. She experiences fatigue, dyspnea on exertion, and ankle swelling. Family history is significant for CAD; her father had an ME, her mother had CHF, and her brother also had an ME. Pain Evaluation 08/19/2024 09/20/2024 11/19/2024 01/10/2025 01/16/2025 Pain Evaluation Pain Score 4 4 6 2 5 5 Location Finger Hand-Right -- Generalized Location Comment bilateral hands Description Aching;Phantom;Stabbing;Stiffness Aching Aching Aching;Radiating;Stiffness Aching Duration (#) 1 4 Duration (Timeframe) Weeks Years Years Minutes Frequency Intermittent Continuous Continuous Intermittent Intermittent Intervention Heat Medication Heat Patient-Entered Data PROMIS Assessments 02/06/2023 07/14/2023 [...] RAPID 3 Oh Activities of Daily Living 01/10/2025 7:34 AM 09/14/2024 10:29 AM 08/19/2024 3:32 PM Dress self? Without ANY difficulty Without ANY difficulty Without ANY difficulty Get in and out of bed? Without ANY difficulty Without ANY difficulty Without ANY difficulty Walk outdoors? With SOME difficulty With SOME difficulty With SOME difficulty Wash and dry body? Without ANY difficulty Without ANY difficulty Without ANY difficulty Get in and out of car? Without ANY difficulty Without ANY difficulty Without ANY difficulty RAPID [...] Date PRAKASH PH PLACEMENT W/O ENDOSCOPY 09/03/2008 [facility] [address]. Cabello CHOLECYSTECTOMY 1982 COLONOSCOPY FLX DX [...] Current Medications Current Outpatient Medications Medication Sig lisinopril (ZESTRIL) 20 mg tablet Take 20 mg by mouth two times a day. amLODIPine (NORVASC) 5 mg tablet Take 1 tablet by mouth once daily. calcium carbonate (CALTRATE) 600 mg calcium (1,500 mg) tab Take 1,200 mg by mouth once daily. omeprazole (PRILOSEC) 20 mg capsule Take 1 capsule by mouth two times a day. 1/2 HR BEFORE MEAL. nortriptyline (PAMELOR) 25 mg capsule Take 1 capsule by mouth daily at bedtime. calcitriol (ROCALTROL) 0.25 mcg capsule Take 1 capsule by mouth once daily. lovastatin 40 mg tablet Take 1 tablet [...] THERAPEUTIC MULTIVITAMIN TAB Take one(1) tablet daily. allopurinol (ZYLOPRIM) 100 mg tablet Take 1 tablet by mouth once daily. colchicine 0.6 mg tablet Take 1 tablet by mouth once daily. lisinopril-hydroCHLOROthiazide (ZESTORETIC) 20-12.5 mg per tablet Take 1 tablet by mouth two times a day. estradiol (ESTRACE) 0.01 % (0.1 mg/gram) vaginal cream Use 1 g vaginally daily at bedtime for 14 days, THEN 1 g two times a week. Labs Latest Ref Rng & Units 01/13/2024 07/12/2024 09/20/2024 01/09/2025 CBC WBC 3.70 - 11.00 k/uL 4.72 4.69 5.84 4.21 Hemoglobin 11.5 - 15.5 g/dL 15.2 15.5 14.9 14.4 Hematocrit 36.0 - 46.0 % 44.3 45.3 43.5 41.8 Platelet Count 150 - 400 k/uL 172 192 168 176 Abs Neut (ANC) 1.45 - 7.50 k/uL 2.70 3.77 Abs Lymph 1.00 - 4.00 k/uL 0.95 0.92 Latest Ref Rng & Units 01/13/2024 07/12/2024 09/20/2024 01/09/2025 CMP Sodium 136 - 144 mmol/L 133 134 130 133 Potassium 3.7 - 5.1 mmol/L 3.7 3.5 3.8 4.0 Chloride 98 - 107 mmol/L 97 93 92 94 CO2 22 - 30 mmol/L 25 27 27 25 Glucose 74 - 99 mg/dL 89 101 89 91 BUN 7 - 21 mg/dL 15 18 14 15 Creatinine 0.58 - 0.96 mg/dL 0.80 0.84 0.74 0.83 Calcium 8.5 - 10.2 mg/dL 10.0 10.2 10.1 10.3 AST 13 - 35 U/L 20 23 21 25 ALT 7 - 38 U/L 11 13 12 15 Alkaline Phosphatase 34 - 123 U/L 50 54 51 44 Latest Ref Rng & Units 09/20/2024 Uric Acid Uric Acid 2.5 - 6.6 mg/dL 7.1 Latest Ref Rng & Units 06/26/2010 02/07/2012 06/17/2015 09/20/2024 ESR, WSR WSR 0 - 20 mm/hr 1 3 2 Sed Rate, [place] 0 - 20 mm/hr 18 Latest Ref [...] AI <0.2 Sm Antibody Negative Negative Ribosomal MATERIAL DISTRIBUTOR Ab <1.0 AI <0.2 Ribosomal MATERIAL DISTRIBUTOR Qualitative Negative Negative Chromatin Ab <1.0 AI <0.2 Chromatin Ab Qual Negative Negative SSA Antibody Qual Negative Negative Anti-SSA <1.0 AI <0.2 Anti-SSB <1.0 AI <0.2 MATERIAL DISTRIBUTOR Antibody QUAL Negative Negative Scleroderma Ab Qual [...] result) Impression: IMPRESSION: Degenerative changes as described. Board Writer: JUAN J Transcribe Date/Time: Sep 24 2024 [...] vaccine 06/16/2015 pneumococcal (PPV23) vaccine 07/07/2007, 03/11/2000 respiratory syncytial virus (RSV) vaccine, bivalent 08/14/2024 tetanus diphtheria pertussis (Tdap) vaccine 08/24/2018 zoster (RZV) vaccine 08/14/2024 zoster (ZVL) vaccine 05/11/2013 Physical Exam GENERAL APPEARANCE: Well groomed. Alert and oriented x 3. In no distress. VITAL SIGNS: BP 117/69 Pulse 66 Resp 17 Wt 160 lb 12.8 oz (72.9kg) SpO2 97% SKIN: No rash, thickening, nodules, discoloration. No Tophi CARDIAC: RRR RESPIRATORY: normal breath sounds, no rales or rhonchi MUSCULOSKELETAL EXAMINATION: MSK/Ext: Left fifth finger PIP joint tender, no swelling; left fourth finger PIP joint tender, mildly swollen; left middle finger PIP joint swollen and tender; left index finger PIP joint not tender; no significant tenderness or swelling in left MCP joints; left CMC joint squared and tender; right third finger PIP joint very swollen, warm, tender with joint effusion; right index finger no swelling, no tenderness; right second MCP joint mildly tender. Heberdens and bouchards nodes throughout No lower extremity swelling No other joint pain and swelling noted on exam. There is currently no information documented on the homunculus. Go to the Rheumatology activity and [facility]. 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 Also with chronic low back pain and gelling phenomenon. Previously she was diagnosed with inflammatory arthritis/seronegative rheumatoid arthritis by local residential builder. Prior lab testing from February 17, 2024 negative for ANNIE, CCP, rheumatoid factor. Also with negative hep B and C screening. Previously treated with methotrexate pills, max dose 12.5 mg. However developed gastric ulcer in the gastric body, and gastroenterology felt it could have been related to methotrexate use. Patient stopped the methotrexate on her own. She may have some benefit while on it, however has worsened since stopping it. It does seem likely she has inflammatory arthritis, she has no other spondyloarthritis characteristics. Given involvement in bilateral hands and wrists, seronegative rheumatoid seems possible versus pseudo rheumatoid due to CPPD versus chronic gout. She has not had acute flares consistent with crystalline etiology. Recent X-rays show severe osteoarthritis, no erosive disease from gout/RA. Patient declined Dual energy CT to look for Gout changes. Orthopedics didn't feel her finger was amenable to aspiration. She did not get any response to hydroxychloroquine despite 3 months of persistent use. Instead she feels her symtoms have worsened. Will now try treating empirically as chronic gout, even though we don't have objective evidence of fluid aspirate Also with history of triphasic Raynaud's, she manages the symptoms with conservative measures. It does not seem there is indication to start calcium channel gregor today, however her blood pressure was significantly elevated, if it remains elevated she may benefit using calcium channel gregor. She also has abnormal stress test requiring cardiac catheterization. Plan Orders this visit: Office Visit on 01/16/25 URIC ACID SEDIMENTATION RATE, WESTERGREN C-REACTIVE PROTEIN COMPLETE BLOOD COUNT BASIC METABOLIC PANEL lisinopril (ZESTRIL) 20 mg tablet allopurinol (ZYLOPRIM) 100 mg tablet colchicine 0.6 mg tablet Start colchicine 0.6 mg daily and allopurinol 100 mg daily Discontinue hydroxychloroquine Repeat labs 1 month including Uric acid and APRs. ACR Handout about allopurinol given to patient Follow up with PCP office for elevated BP and shortness of breath. Follow up 1 month to assess response to colchicine and allopurinol I spent a total of 35 minutes on the date of the service which included preparing to see the patient, [id number] patient care, completing clinical documentation, obtaining and/or reviewing separately obtained history, performing a medically appropriate examination, counseling and educating the patient/family/caregiver, and ordering medications, tests, or procedures. Lexis Roca PA-C Rheumatology Date: October 11, 2024 Time: 1:24 PM documented in this encounter [facility] 11-26-2024 Note HNO ID: [id number] Author: ELIA OLIVARES OD Service: ? Author Type: CHAIN BUILDER LOOM CONTROL Type: Progress Notes Filed: 11/26/2024 10:33 Note [...] treatment regimen with primary care doctor and/or lead python developer to maintain optimum levels as they are important to avoid ocular complications Encouraged patient to call the office immediately with any changes to vision or visual concerns Urged patient to get annual plaquenil testing and follow-up with Dr. Curiel for exams (me as needed) Elia Olivares, OD November 26, 2024 10:28 AM [facility] 11-26-2024 Note Date of Procedure 11/26/2024. Production Cloth Cutter Information Customs Compliance Specialist: BP. Start time: 9:00 AM. Stop time: 9:09 AM. OCT Macula Interpretation Right Eye Normal without fluid. Left Eye Normal without fluid. Interval Change Right Eye Initial. Left Eye Initial. [facility]EISS 11-26-2024 Note Date of Procedure 11/26/2024. Production Cloth Cutter Information Customs Compliance Specialist: BP. Start time: 9:09 AM. Stop time: [...] treatment regimen with primary care doctor and/or lead python developer to maintain optimum levels as they are important to avoid ocular complications Encouraged patient to call the office immediately with any changes to vision or visual concerns Urged patient to get annual plaquenil testing and follow-up with Dr. Curiel for exams (me as needed) Elia Olivares OD November 26, 2024 10:28 AM documented in this encounter [facility] 11-26-2024 Instructions Elia Olivares, LETY - 11/26/2024 10:01 AM EDT Use Systane Complete or Refresh Relieva 2-3 times daily Use Systane, Refresh or Blink gel nightly before bed in both eyes documented in this encounter [facility] 11-19-2024 Note HNO ID: [id number] Author: JV BROOKS MD Service: ? Author Type: Physician Type: Progress Notes Filed: 12/11/2024 00:10 Note Text: Jv Brooks MD Department of Orthopaedics Orthopaedics [address] [facility] [address] Dept: [phone] Dept November 19, 2024 CHIEF COMPLAINT: New [...] Date PRAKASH PH PLACEMENT W/O ENDOSCOPY 09/03/2008 [facility] [address]. Cabello CHOLECYSTECTOMY 1981 COLONOSCOPY FLX DX W/COLLJ SPEC WHEN PFRMD 05/17/2002 Colonoscopy COLONOSCOPY FLX DX W/COLLJ SPEC WHEN PFRMD 07/18/2016 Colonoscopy COLONOSCOPY W/BIOPSY SINGLE/MULTIPLE 07/14/2010 DILATION AND CURETTAGE DXAND/THER NONOBSTETRIC 03/21/2001 Dilation AND curettage attempted in the OR EGD TRANSORAL BIOPSY SINGLE/MULTIPLE 07/28/2007 HH, esophagitis,antral gastritis EGD TRANSORAL BIOPSY SINGLE/MULTIPLE 05/27/2008 HH, esophagits, antral gastritis ESOPHAG (more content not included)... [facility] 11-19-2024 History of Present illness Narrative Jv Brooks MD Department of Orthopaedics Orthopaedics [address] [facility] [address] Dept: [phone] Dept November 19, 2024 CHIEF COMPLAINT: New [...] Date PRAKASH PH PLACEMENT W/O ENDOSCOPY 09/03/[address] [facility] [address] Cabello CHOLECYSTECTOMY 1982 COLONOSCOPY FLX DX [...] swelling, (+) lumps in fingers, (+) decreased food beverage supervisor strength, (+) limited range of motion, (+) hand/finger pain with usage REFERRING PHYSICIAN: Consultation requested by Delisa for an opinion regarding hand swelling. My final recommendations will be communicated back to the requesting physician by way of shared Medical record or letter to requesting physician via US mail. Lexis Roca [address] [facility] [address] Recording using [employer] software for draft documentation of the visit was discussed with the patient/authorized sales representative consultant; all questions welcomed and answered. Patient/authorized sales representative consultant agreed to proceed Jv Brooks MD documented in this encounter [facility] 11-14-2024 Evaluation note Diagnosis Onset Date Resolution SOB (shortness of breath) acute November 14, 2024 11 :30am Essential (primary) hypertension chronic November 14, 2024 11 :30am [facility] Work Phone: [phone]) 650-663604-11-2025 Telephone encounter Note* Telephone Encounter - Ary Manning LPN - 10/19/2024 3:22 PM EDT Patient notified and going to reach out to Dr. Pereira's office. [facility]04-11-2025 Miscellaneous Notes* Telephone Encounter - Ary Manning LPN - 10/19/2024 3:22 PM EDT Patient notified and going to reach out to Dr. Pereira's office. * Result Encounter Note - Byron Sutton APRN.SUPERVISOR PROPELLANT CHARGE LOADING - 10/17/2024 4:39 PM EDT Please let her know to follow back up with cardiology at this point and see if they want to do any further work up or adjustments. * Telephone Encounter - Daina Meza LPN - 10/17/2024 2:04 PM EDT Spoke with pt gave results provided. She [...] was 147/77 and last evening was 155/85. * Telephone Encounter - Byron Sutton APRN.CNP - 10/17/2024 12:40 PM EDT Please let Concepcion know that her ECHO was stable. Please see if she is still having issues with shortness of breath. Thanks! [facility] Progress note* Result Encounter Note - Byron Sutotn APRN.CNP - 10/17/2024 4:39 PM EDT Please let her know to follow back up with cardiology at this point and see if they want to do any further work up or adjustments. [facility]04-09-2025 Telephone encounter Note* Telephone Encounter - Daina Meza LPN - 10/17/2024 2:04 PM EDT Spoke with pt gave results provided. She [...] was 147/77 and last evening was 155/85. [facility]04-09-2025 Telephone encounter Note* Telephone Encounter - Byron Sutton APRN.HEYDI - 10/17/2024 12:40 PM EDT Please let Concepcion know that her ECHO was stable. Please see if she is still having issues with shortness of breath. Thanks! [facility]04-03-2025 Instructions* Patient Instructions* Lexis Roca PA-C - 10/11/2024 9:37 AM EDT - Start taking Plaquenil (hydroxychloroquine) 200 mg once daily; prescription sent to [facility] in [place]. - Schedule a baseline OCT and visual dove test with a [facility] grant administrator within thefirst three months of starting Plaquenil. - Follow up with your eye doctor yearly for OCT and visual dove testing while on Plaquenil. - Schedule an appointment with Dr. Brooks or his PA, Bisi Brock, for an orthopedic evaluation and possible aspiration of the swollen knuckle. - Next follow-up appointment in 3 months to assess medication tolerance and review orthopedic visitfindings. [facility]25 NoteHNO ID: [id number] Author: LEXIS ROCA PA-C Service: ? Author Type: Physician Credit Risk Management Director Type: Progress Notes Filed: 10/11/2024 18:02 Note Text: Rheumatology FOLLOW UP VISIT Date of Service: 10/11/2024 Patient: Concepcion Donaldson Medical Record: [id number] Primary Care Physician: Preston Haney MD Last Rheumatology visit: None at [facility] History of Present Illness Concepcion Donaldson is [...] Right medial thigh pain Description Burning Aching Aching;Numbness;Radiating;Sharp;Shooting;Spasm;Stiffness;Throbbing;Tightness;Tin gling Aching;Phantom;Stabbing;Stiffness Aching Duration (#) 6 1 [...] dysfunction) Physical Function Percentile 14 14 RAPID Oh Activities of Daily Living 09/14/2024 10:29 [...] Arthralgias, Myalgias, Muscle we (more content not included)...[facility]04-03-[facility] History of Present illness Narrative* Lexis Roca PA-C - 10/11/2024 9:05 AM EDT Images from the original note were not included. Rheumatology FOLLOW UP VISIT Date of Service: 10/11/2024 Patient: Concepcion Donaldson Medical Record: [id number] Primary Care Physician: Preston Haney MD Last Rheumatology visit: None at [facility] History of Present Illness Concepcion Donaldson is [...] prednisone, which provided approximately 50% improvement in painand stiffness but did not reduce swelling. She reports increased squeezing power in her hands but continues to experience pain, particularly when bumping her hands. She notes tenderness in her left fifth finger PIP joint and mild tenderness and swelling in the left fourth PIP joint. The left middlePIP finger is swollen and tender, while the [...] elevated uric acid level. X-rays revealed moderate osteoarthritisin the feet, particularly at the base of the right big toe, and advanced degenerative changes in the left thumb and right long finger, with subluxation noted. No erosions were observed. Pain Evaluation 01/27/2021 07/18/2021 07/14/2023 08/19/2024 09/20/2024 Pain Evaluation Pain Score 4 6 8 4 4 6 Location Vagina Back-Lower Leg-Left Finger Hand-Right Location Comment Right medial thigh pain Description Burning Aching Aching;Numbness;Radiating;Sharp;Shooting;Spasm;Stiffness;Throbbing;Tightn ess;Tingling Aching;Phantom;Stabbing;Stiffness Aching Duration (#) 6 1 3 1 Duration (Timeframe) Months Weeks Weeks Weeks Years Frequency Intermittent Continuous Intermittent Intermittent Continuous Intervention Medication Distractions;Heat;Positioning Heat Patient-Entered Data PROMIS Assessments 02/06/2023 07/14/2023 01/13/2024 PROMIS Global Health - (T-Scores - the mean of general population = 50. Five points is a clinicallymeaningful difference.) Physical T-Score 44.9 37.4 42.3 Mental [...] Date PRAKASH PH PLACEMENT W/O ENDOSCOPY 09/03/2008 [facility] [address]. Cabello CHOLECYSTECTOMY 1982 COLONOSCOPY FLX DX [...] 1 tablet by mouth every morning AND 0.5tablets every afternoon. estradiol (ESTRACE) 0.01 % (0.1 [...] 20 mm/hr 1 3 2 Sed Rate, [place] 0 - 20 mm/hr 18 Latest Ref [...] AI <0.2 Sm Antibody Negative Negative Ribosomal MATERIAL DISTRIBUTOR Ab <1.0 AI <0.2 Ribosomal MATERIAL DISTRIBUTOR Qualitative Negative Negative Chromatin Ab <1.0 AI <0.2 Chromatin Ab Qual Negative Negative SSA Antibody Qual Negative Negative Anti-SSA <1.0 AI <0.2 Anti-SSB <1.0 AI <0.2 MATERIAL DISTRIBUTOR Antibody QUAL Negative Negative Scleroderma Ab Qual Negative Negative Scl-70 Abs, EIA <1.0 AI <0.2 Centromere Ab <1.0 AI <0.2 CENTROMERE AB QUAL Negative Negative ELIDA-1 ANTIBODY, IGG <1.0 AI <0.2 ELIDA 1 ANTIBODY QUAL Negative Negative PT Sec 8.4 - 13.0 sec 11.6 PT INR 0.8 - 1.2 1.1 APTT 23.0 - 32.4 sec 29.0 Latest Ref Rng & Units 09/08/2021 09/08/2021 12/15/202112/1512/15/2021 Urinalysis Protein, Urine Negative Negative Negative PROTEIN UA (POCT) Negative mg/dL Negative Negative RBC, Urine 0-3 /HPF 3-5 /HPF 3-5 /HPF Imaging Last XR Hand/Finger - Impression Only XR HAND GENERAL 3V PA/LAT/OBL BILATERAL Exam End: 09/20/2024 11:01 AM (Final result) Impression: IMPRESSION: Degenerative changes as described. Board Writer: JUAN J Transcribe Date/Time: Sep 24 2024 [...] tender with fluid; right index finger no swelling,no tenderness; right second MCP joint mildly tender. [...] 3, Left MCP 4, Right MCP 4, LeftMCP 5, Right MCP 5, Left IP (thumb), [...] base of the left thumb and moderate changesin the right long finger, with subluxation noted. No erosions indicative of rheumatoid arthritis were observed. Uric acid levels are slightly elevated. Exact etiology of her inflammatory arthritis isunclear. Ddx includes chronic gout, vs pseudogout, vs Seronegative RA, versus erosive OA. Prednisone provided approximately 50% improvement in pain and stiffness, but symptoms persist. Patient not willing to travel to get [employer] CT of hand for helping clarify if chronic gout is at play here. Discussed how this will help guide treatment strategy, she declines. - Referred to Dr. Brooks and PA Bisi Kwan for orthopedic evaluation and potential joint aspiration to analyze synovial fluid for crystals and cell count. - Will empirically start Plaquenil 200 mg once daily given the erosive oa, the response to prednisone and overall relatively low risk profile; prescription sent to [facility] in [place]. - Scheduled follow-up in 3 months to assess medication tolerance and review orthopedic findings. # Long-term use of Plaquenil (Z79.899) Initiating Plaquenil therapy for suspected inflammatory arthritis - Recommend baseline OCT and visual dove testing to be performed at [facility] within the first three months of starting Plaquenil. - Patient to continue regular ophthalmologic evaluations to monitor for potential retinal toxicity. Plan Orders this visit: Office Visit on 10/11/24 CONSULT TO ORTHOPAEDICS CONSULT TO OPHTHALMOLOGY hydrOXYchloroQUINE (PLAQUENIL) 200 mg tablet - Start taking Plaquenil (hydroxychloroquine) 200 mg once daily; prescription sent to [facility] in [place]. - Schedule a baseline OCT and visual dove test with a [facility] grant administrator within thefirst three months of starting Plaquenil. - Follow up with your eye doctor yearly for OCT and visual dove testing while on Plaquenil. - Schedule an appointment with Dr. Brooks or his PA, Bisi Kwan, for an orthopedic evaluation and possible aspiration of the swollen knuckle. - Next follow-up appointment in 3 months to assess medication tolerance and review orthopedic visitfindings. Return in about 3 months (around 01/10/2025). I spent a total of 30 minutes on the date of the service which included preparing to see the patient, [id number] patient care, completing clinical documentation, obtaining and/or reviewing separately obtained history, performing a medically appropriate examination, counseling and educating the pat ient/family/caregiver, and ordering medications, tests, or procedures. Lexis Roca PA-C Rheumatology Date: October 11, 2024 Time: 5:59 PM documented in this encounterPromedica Toledo Hospital04-02-2025 Telephone encounter Note * Telephone Encounter - Genesis Zuñiga RN - 10/10/2024 11:21 AM EDT Checked with [facility] and they are unable to do dual energy CTs. Genesis Zuñiga RN [facility]04-02-2025 Miscellaneous Notes* Telephone Encounter - Genesis Zuñiga RN - 10/10/2024 11:21 AM EDT Checked with [facility] and they are unable to do dual energy CTs. Genesis Zuñiga RN * Telephone Encounter - Lexis Roca PA-C - 10/10/2024 8:17 AM EDT We can discuss options at our appointment tomorrow. Lexis Roca PA-C * Telephone Encounter - Shi Nunn - 10/09/2024 8:16 AM EDT Patient was schedule for CT Scan today at 1:20 PM however the hazardous waste technician saw it was ordered with [employer]. Those scans can only be done at [place], [place], or [facility]. I contacted patient to reschedule to one of those locations and patient is unwilling to travel that far. Please advise. NORBERTO Roberts documented in this encounterPromedica Toledo Hospital04-02-2025 Telephone encounter Note * Telephone Encounter - Lexis Roca PA-C - 10/10/2024 8:17 AM EDT We can discuss options at our appointment tomorrow. Lexis Roca PA-C [facility] Work Phone: [phone] Telephone encounter Note* Telephone Encounter - Shi Nunn - 10/09/2024 8:16 AM EDT Patient was schedule for CT Scan today at 1:20 PM however the hazardous waste technician saw it was ordered with [employer]. Those scans can only be done at [place], [place], or [facility]. I contacted patient to reschedule to one of those locations and patient is unwilling to travel that far. Please advise. Shi Nunn, PSS [facility]03-28-2025 Progress note* Result Encounter Note - Elisabeth Hoff APRN.CNS - 10/05/2024 1:14 PM EDT mammogram had benign findings, 1 year screening mammogram [facility]03-28-2025 Miscellaneous Notes* Result Encounter Note - Elisabeth Hoff APRN.CNS - 10/05/2024 1:14 PM EDT mammogram had benign findings, 1 year screening mammogram documented in this encounterPromedica Toledo Hospital03-25-2025 NoteHNO ID: [id number] Author: BYRON SUTTON APRN.CNP Service: ? Author [...] pain or chest tightness. Prior ECHO in 2019, no valve issues, EF 60%, mild upper septal left ventricle hypertrophy. Normal stress test in 2019. Sees Dr. Pereira with [facility] heart group as needed. Seeing rheumatology, recent [...] [Celecoxib] Rash Grass Pollen scratchy throat Nitrofurantoin [place]* Intolerance Stomach pain Penicillins Hives Sucralfate Rash Generalized red rash; itching back of neck. Saw geophysical support specialist ACTIVE PROBLEM LIST Spinal Stenosis of Lumbar [...] General: Vision grossly in (more content not included)...[facility]03-25-2025 History of Present illness Narrative* Byron Sutton APRN.SUPERVISOR [employer]OPELLANT CHARGE LOADING - 10/02/2024 9:05 AM EDT SUBJECTIVE Concepcion Donaldson is a 83 year [...] test in 2019. Sees Dr. Pereira with [facility] heart group as needed. Seeing rheumatology, recentlabs showed elevated uric acid levels. On prednisone [...] 1 tablet by mouth every morning AND 0.5tablets every afternoon. MINERAL OIL ORAL Take by [...] [Celecoxib] Rash Grass Pollen scratchy throat Nitrofurantoin [place]* Intolerance Stomach pain Penicillins Hives Sucralfate Rash Generalized red rash; itching back of neck. Saw geophysical support specialist ACTIVE PROBLEM LIST Spinal Stenosis of Lumbar [...] from today's visit and in agreement with treatmentplan. Questions answered. Agrees to call the office [...] as well as compliance with taking medications. Age- appropriate health preventative measures were discussed. Return if symptoms worsen or fail to improve, for Keep next scheduled appointment.. Byron Sutton APRN-HEYDI documented in this encounterPromedica Toledo Hospital03-17-2025 Progress note* Result Encounter Note - Lexis Roca PA-C - 09/24/2024 2:44 PM EDT Please call patient, X-Ray shows all osteoarthritic changes. There are no erosive changes noted. There is osteoarthritisin the base of both thumbs, worse on the left. We can discuss this more at her visit. However, given the elevated uric acid, I'd like to do a [employer] Hand CT on the Right hand giventhe amount of swelling in that middle finger to see if this is gout and needs a different treatment. Order has been placed. Prefer to get this done prior to our next visit. Thanks Lexis [facility]03-17-2025 Miscellaneous Notes* Result Encounter Note - Lexis Roca PA-C - 09/24/2024 2:44 PM EDT Please call patient, X-Ray shows all osteoarthritic changes. There are no erosive changes noted. There is osteoarthritisin the base of both thumbs, worse on the left. We can discuss this more at her visit. However, given the elevated uric acid, I'd like to do a [employer] Hand CT on the Right hand giventhe amount of swelling in that middle finger to see if this is gout and needs a different treatment. Order has been placed. Prefer to get this done prior to our next visit. Thanks Lexis documented in this encounterPromedica Toledo Hospital03-14-2025 Telephone encounter Note * Telephone Encounter - Ailin Everett MA - 09/21/2024 3:03 PM EDT I called and spoke with the patient. Message from provider given. Patient verbalized understanding. [facility]03-14-2025 Miscellaneous Notes* Telephone Encounter - Ailin Everett MA - 09/21/2024 3:03 PM EDT I called and spoke with the patient. Message from provider given. Patient verbalized understanding. * Telephone Encounter - Ailin Everett MA - 09/21/2024 2:59 PM EDT ----- Message from Lexis Roca PA-C sent [...] at our next visit documented in this encounterPromedica Toledo Hospital03-14-2025 Telephone encounter Note * Telephone Encounter - Ailin Everett MA - 09/21/2024 2:59 PM EDT ----- Message from Lexis Roca PA-C sent [...] in more detail at our next visit [facility]03-13-2025 Telephone encounter Note* Telephone Encounter - Dana Vargas LPN - 09/20/2024 12:31 PM EDT Patient notified of providers message and verbalized understanding. Patient requested Byron Sutton.Appointment was made [facility]03-13-2025 Miscellaneous Notes* Telephone Encounter - Dana Vargas LPN - 09/20/2024 12:31 PM EDT Patient notified of providers message and verbalized understanding. Patient requested Byron Sutton.Appointment was made * Telephone Encounter - Elisabeth Hoff APRN.CNS - 09/20/2024 11:26 AM EDT Please let her know that blood pressure [...] 07/18/2021 128/62 06/26/2021 144/80 documented in this encounterPromedica Toledo Hospital03-13-2025 Telephone encounter Note * Telephone Encounter - Elisabeth Hoff APRN.CNS - 09/20/2024 11:26 AM EDT Please let her know that blood pressure [...] 140/70 09/08/2021 146/72 07/18/2021 128/62 06/26/2021 144/80 [facility]03-13-2025 History of Present illness Narrative* Mayuri Matthews Tech - 09/20/2024 10:40 AM EDT Radiology Service Progress Note PATIENT NAME: Concepcion Donaldson DATE OF SERVICE: September 20, 2024 TIME: 10:38 AM PATIENT IDENTITY VERIFICATION COMPLETED USING TWO (2) IDENTIFIERS: Name and Date of confirmedby patient verbally. FALL SCREENING: Has the patient had 2 falls in the last year or 1 fall with injury or currently using an Ambulatory Assistive Device (Walker, Cane, Wheelchair, Crutches, etc.)? No PATIENT GENDER DATA: Assigned female at . status: : No status:NO. PATIENT RELEVANT IMPLANT DATA REVIEWED: Not Applicable PATIENT PRESENTS WITH AN IMPLANTABLE OR ATTACHED DENTAL PRACTICE MANAGER: No RADIOLOGY DEPARTMENT: General X-ray: Exam(s) Completed: Lower Extremity X- Ray(s): Feet, Bilateral Upper Extremity X-Ray(s): Hand, bilateral PERIPHERAL IV DATA: Not applicable SIGNED BY: Nuno Lopez September 20, 2024 10:38 AM documented in this encounterPromedica Toledo Hospital03-13-2025 NoteHNO ID: [id number] Author: MAYURI MATTHEWS Tech Service: ? Author [...] PATIENT PRESENTS WITH AN IMPLANTABLE OR ATTACHED DENTAL PRACTICE MANAGER: No RADIOLOGY DEPARTMENT: General X-ray: Exam(s) Completed: Lower Extremity X-Ray(s): Feet, Bilateral Upper Extremity X-Ray(s): Hand, bilateral PERIPHERAL IV DATA: Not applicable SIGNED BY: Nuno Lopez September 20, 2024 10:38 [facility]03-13-2025 NoteHNO ID: [id number] Author: LEXIS ROCA PA-C Service: ? Author Type: Physician Credit Risk Management Director Type: Progress Notes Filed: 09/20/2024 10:51 Note Text: Rheumatology CONSULTATION Date of Service: 09/20/2024 Patient: Concepcion Donaldson Medical Record: [id number] Primary Care Physician: Preston Haney MD [facility] Referring Provider: Elisabeth Hoff [address] [facility] [place] [address] Concepcion Donaldson is here today at request of Elisabeth Hoff APRN.[facility] specifically for consultation of my opinion in regards to the chief complaint listed below. Correspondence will be shared today via the [facility] electronic health record or through [...] use after diagnosed with gastric ulcer at [facility]. She thought the medication was starting to help, but she feels her hand pain has gotten worse since. Most of her pain today is in her hands. 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 The worst area of her pain is [...] 02/17/24 labs CBC- OK, low Ly%, High [place] %, High EO%. CMP- hyponatremia 133 Sed rate normal 9 CRP<2.9 ANNIE negative CCP negative Rheumatoid factor negative Hepatitis B surface antigen and surface antibody nonreactive hepatitis C antibody nonreactive 03/27/24 labs CBC normal CMP low alk phos 43, hyponatremia 130, hypochloremia 97 06/03/24 labs CBC RDW CV 15.0 elevated Ly% 17.0 (low) [place] % 12.8 (high) Immature Granulocytes 1% (high) - Left shift CMP - normal creatinine 0.8. 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 1 daughter Angela (here [...] Right medial thigh pain Description Burning Aching Aching;Numbness;Radiating;Sharp;Shooting;Spasm;Stiffness;Throbbing;Tightness;Tin gling Aching;Phantom;Stabbing;Stiffness Aching Duration (#) 6 (more content not included)...[facility] 09-20-2024 History of Present illness Narrative* Lexis Roca PA-C - 09/20/2024 9:30 AM EDT Images from the original note were not included. Rheumatology CONSULTATION Date of Service: 09/20/2024 Patient: Concepcion Donaldson Medical Record: [id number] Primary Care Physician: Preston Haney MD Last Rheumatology visit: None at [facility] Referring Provider: Elisabeth Hoff [address] [facility] [place] [address] Concepcion Donaldson is here today at request of Elisabeth Hoff APRN.[facility] specifically for consultation of my opinion in regards to the chief complaint listed below. Correspondence will be shared today via the [employer] electronic health record or through regular mail, [...] with synovitis in hands, shoulders, hips, and intermittentsynovitis in the knees ankles and feet. 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 - methotrexate was increased to 12.5 mg once weekly and folic acid 2 mg daily, and leucovorin 15 mgonce weekly Per patient today: She was started on methotrexate back 03/02/24. Quit methotrexate use after diagnosed with gastric ulcer at [facility]. She thought the medication was starting to help, but she feels her hand pain has gotten worse since. Most of her pain today is in her hands. 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 The worst area of her pain is [...] 02/17/24 labs CBC- OK, low Ly%, High [place] %, High EO%. CMP- hyponatremia 133 Sed rate normal 9 CRP<2.9 ANNIE negative CCP negative Rheumatoid factor negative Hepatitis B surface antigen and surface antibody nonreactive hepatitis C antibody nonreactive 03/27/24 labs CBC normal CMP low alk phos 43, hyponatremia 130, hypochloremia 97 06/03/24 labs CBC RDW CV 15.0 elevated Ly% 17.0 (low) [place] % 12.8 (high) Immature Granulocytes 1% (high) - Left shift CMP - normal creatinine 0.8. 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 1 daughter Angela (here [...] Right medial thigh pain Description Burning Aching Aching;Numbness;Radiating;Sharp;Shooting;Spasm;Stiffness;Throbbing;Tightn ess;Tingling Aching;Phantom;Stabbing;Stiffness Aching Duration (#) 6 1 3 1 Duration (Timeframe) Months Weeks Weeks Weeks Years Frequency Intermittent Continuous Intermittent Intermittent Continuous Intervention Medication Distractions;Heat;Positioning Heat Patient-Entered Data PROMIS Assessments 02/06/2023 07/14/2023 01/13/2024 PROMIS Global Health - (T-Scores - the mean of general population = 50. Five points is a clinicallymeaningful difference.) Physical T-Score 44.9 37.4 42.3 Mental [...] Date PRAKASH PH PLACEMENT W/O ENDOSCOPY 09/03/[address] [facility] [address]. Cabello CHOLECYSTECTOMY 1982 COLONOSCOPY FLX DX [...] 1 tablet by mouth every morning AND 0.5tablets every afternoon. estradiol (ESTRACE) 0.01 % (0.1 [...] multiple joint pain, worst in bilateral hands withuse. Also with chronic low back pain and gelling phenomenon. Previously she was diagnosed with inflammatory arthritis/seronegative rheumatoid arthritis by [place], CCP, rheumatoid factor. Also [...] like to repeat imaging to assess for evidenceof erosive disease. Also with history of triphasic [...] review results, response to prednisone, and discuss termite technician treatment choice. Will Notify PCP of Elevated BP and Shortness of breath via Epic Communication I spent a total of 65 minutes on the date of the service which included preparing to see the patient, [id number] patient care, completing clinical documentation, obtaining and/or reviewing separately obtained history, performing a medically appropriate examination, counseling and educating the pat ient/family/caregiver, and ordering medications, tests, or procedures. Lexis Roca PA-C Rheumatology Date: September 20, 2024 Time: 10:49 AM documented in this encounterPromedica Toledo Hospital03-05-2025 Telephone encounter Note * Telephone Encounter - Lexis Roca PA-C - 09/12/2024 1:03 PM EST External Records from [facility] Received: Will Summarize as below: 03/02/24 - dx as inflammatory arthropathy with synovitis in hands, shoulders, hips, and intermittentsynovitis in the knees ankles and feet. 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 - methotrexate was increased to 12.5 mg once weekly and folic acid 2 mg daily, and leucovorin 15 mgonce weekly X-ray pelvis 02/17/2024 No acute displaced fracture or dislocation. Mild degenerative changes of the hips. Chronic calcified structure in left lower quadrant. 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 CMP- hyponatremia 133 Sed rate normal 9 CRP<2.9 ANNIE negative CCP negative Rheumatoid factor negative Hepatitis B surface antigen and surface antibody nonreactive hepatitis C antibody nonreactive 03/27/24 labs CBC normal CMP low alk phos 43, hyponatremia 130, hypochloremia 97 06/03/24 labs CBC RDW CV 15.0 elevated Ly% 17.0 (low) [place] % 12.8 (high) Immature Granulocytes 1% (high) - Left shift CMP - normal creatinine 0.8. 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 - methotrexate was increased to 12.5 mg once weekly and folic acid 2 mg daily, and leucovorin 15 mgonce weekly X-ray pelvis 02/17/2024 No acute displaced fracture or dislocation. Mild degenerative changes of the hips. Chronic calcified structure in left lower quadrant. 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 CMP- hyponatremia 133 Sed rate normal 9 CRP<2.9 ANNIE negative CCP negative Rheumatoid factor negative Hepatitis B surface antigen and surface antibody nonreactive hepatitis C antibody nonreactive 03/27/24 labs CBC normal CMP low alk phos 43, hyponatremia 130, hypochloremia 97 06/03/24 labs CBC RDW CV 15.0 elevated Ly% 17.0 (low) [place] % 12.8 (high) Immature Granulocytes 1% (high) - Left shift CMP - normal creatinine 0.8. Elevated BUN/creatinine ratio 21.6 hyponatremia 128 hypochloremia 93 documented in this encounterPromedica Toledo Hospital02-11-2025 History of Present illness Narrative* Surendra Morales Mammo Tech - 08/21/2024 9:10 AM EST Radiology Service Progress Note PATIENT NAME: Concepcion Donaldson DATE OF SERVICE: August 21, 2024 TIME: 9:36 AM PATIENT IDENTITY VERIFICATION COMPLETED USING TWO (2) IDENTIFIERS: Name and Date of confirmedby patient verbally. FALL SCREENING: Has the patient had 2 falls in the last year or 1 fall with injury or currently using an Ambulatory Assistive Device (Walker, Cane, Wheelchair, Crutches, etc.)? No PATIENT GENDER DATA: Assigned female at . status: : No status:NO. PATIENT RELEVANT IMPLANT DATA REVIEWED: Not Applicable PATIENT PRESENTS WITH AN IMPLANTABLE OR ATTACHED DENTAL PRACTICE MANAGER: No RADIOLOGY DEPARTMENT: Mammography PERIPHERAL IV DATA: Not applicable SIGNED BY: Gali Iglesias August 21, 2024 9:36 AM documented in this encounterPromedica Toledo Hospital02-11-2025 NoteHNO ID: [id number] Author: SURENDRA MORALES Mammo Tech Service: ? [...] PATIENT PRESENTS WITH AN IMPLANTABLE OR ATTACHED DENTAL PRACTICE MANAGER: No RADIOLOGY DEPARTMENT: Mammography PERIPHERAL IV DATA: Not applicable SIGNED BY: Priscilla IglesiasMojave Networks August 21, 2024 9:36 [facility]02-10-2025 Telephone encounter Note* Telephone Encounter - Ailin Everett MA - 08/20/2024 8:05 AM EST Records received via fax from Dr. Madrid's office. In folder for review. [facility]02-10-2025 Miscellaneous Notes* Telephone Encounter - Ailin Everett MA - 08/20/2024 8:05 AM EST Records received via fax from Dr. Madrid's office. In folder for review. * Telephone Encounter - Ailin Everett MA - 08/17/2024 9:55 AM EST I called and spoke with scheduling desk at Dr. Madrid's office. They will fax records over. Labs were printed from [facility]. * Telephone Encounter - Genesis Zuñiga RN - 08/16/2024 4:14 PM EST Jarek's office is closed on [phone] * Telephone Encounter - Genesis Zuñiga RN - 08/16/2024 4:14 PM EST ----- Message from Lexis Roca APRN.SUPERVISOR [employer]LLANT CHARGE LOADING sent at 08/16/2024 3:40 PM EST ----- This patient was seeing Dr. Madrid at [facility]. Scheduled next week. Can we request records? Thanks Lexis documented in this encounterPromedica Toledo Hospital02-07-2025 Telephone encounter Note * Telephone Encounter - Ailin Everett MA - 08/17/2024 9:55 AM EST I called and spoke with scheduling desk at Dr. Madrid's office. They will fax records over. Labs were printed from [facility]. [facility]02-06-2025 Telephone encounter Note* Telephone Encounter - Genesis Zuñiga RN - 08/16/2024 4:14 PM EST Jarek's office is closed on [phone] [facility]02-06-2025 Telephone encounter Note* Telephone Encounter - Genesis Zuñiga RN - 08/16/2024 4:14 PM EST ----- Message from Lexis Roca APRN.SUPERVISOR [employer]OPELL[employer] CHARGE LOADING sent at 08/16/2024 3:40 PM EST ----- This patient was seeing Dr. Madrid at [facility]. Scheduled next week. Can we request records? Thanks Lexis [facility]01-31-2025 Telephone encounter Note* Telephone Encounter - Preston Haney MD - 08/10/2024 6:53 PM EST The following approved medication requests have been transmitted electronically. Requested Prescriptions Signed Prescriptions Disp Refills omeprazole (PRILOSEC) 20 mg capsule 180 capsule 3 Sig: Take 1 capsule by mouth two times a day. 1/2 HR BEFORE MEAL. Authorizing Provider: PRESTON HANEY MD [facility]01-31-2025 Miscellaneous Notes* Telephone Encounter - Preston Haney MD - 08/10/2024 6:53 PM EST The following approved medication requests have been transmitted electronically. Requested Prescriptions Signed Prescriptions Disp Refills omeprazole (PRILOSEC) 20 mg capsule 180 capsule 3 Sig: Take 1 capsule by mouth two times a day. 1/2 HR BEFORE MEAL. Authorizing Provider: PRESTON HANEY MD * Telephone Encounter - Yolie Collazo LPN - 08/10/2024 3:34 PM EST PA completed and approved for omeprazole 20mg one twice daily. PA approved from 08/10/24 to 08/10/2025. * Telephone Encounter - Yolie Collazo LPN - 08/06/2024 4:41 PM EST Pt will need new rx for either dose. * Telephone Encounter - Kaci Dueñas - 08/06/2024 4:11 PM EST Concepcion is calling Preston Haney MD today to request a prior authorization for the Omeprazole of 20mg capsule taking two per day Per patient [...] calling: self Call patient at: at home [phone] (home) [phone] (cell) Was an appointment scheduled: No Closing statement: Prior Authorization Calls: Thank you for calling [facility], your call will be returned within the next 24 hours or next business day. Kaci Lopez documented in this encounterPromedica Toledo Hospital01-31-2025 Telephone encounter Note * Telephone Encounter - Yolie Collazo LPN - 08/10/2024 3:34 PM EST PA completed and approved for omeprazole 20mg one twice daily. PA approved from 08/10/24 to 08/10/2025. [facility]01-27-2025 Telephone encounter Note* Telephone Encounter - Yolie Collazo LPN - 08/06/2024 4:41 PM EST Pt will need new rx for either dose. [facility]01-27-2025 Telephone encounter Note* Telephone Encounter - Kaci Dueñas - 08/06/2024 4:11 PM EST Concepcion is calling Preston Haney MD today to request a prior authorization for the Omeprazole of 20mg capsule taking two per day Per patient [...] calling: self Call patient at: at home [phone] (home) [phone] (cell) Was an appointment scheduled: No Closing statement: Prior Authorization Calls: Thank you for calling [facility], your call will be returned within the next 24 hours or next business day. Kaci Lopez [facility]01-15-2025 Telephone encounter Note* Telephone Encounter - Maral Santo - 07/25/2024 10:53 AM EST Prescription Refill Information The patient has been [...] Maral Santo July 25, 2024 10:54 AM [facility]01-15-2025 Miscellaneous Notes* Telephone Encounter - Maral Santo - 07/25/2024 10:53 AM EST Prescription Refill Information The patient has been [...] 25, 2024 10:54 AM documented in this encounterPromedica [facility]01-10-[facility] Telephone encounter Note * Telephone Encounter - Dana Vargas LPN - 07/20/2024 4:06 PM EST Patient notified of providers message and verbalized understanding. [facility]01-10-[facility] Miscellaneous Notes* Telephone Encounter - Dana Vargas LPN - 07/20/2024 4:06 PM EST Patient notified of providers message and verbalized understanding. * Telephone Encounter - Elisabeth Hoff APRN.CNS - 07/20/2024 3:18 PM EST SHAKA contreras with Preston Haney MD. Order filed. * Telephone Encounter - Merlyn Pires - 07/20/2024 12:07 PM EST Patient will need an order placed for a consult to rheumatology, new provider starting in [place] by the end of the month and they would like to see her. Please contact patient when order is place sothey can schedule. Thank you, Merlyn Pires documented in this encounterPromedica Toledo Hospital01-10-2025 Telephone encounter Note * Telephone Encounter - Elisabeth Hoff APRN.CNS - 07/20/2024 3:18 PM EST SHAKA contreras with Preston Haney MD. Order filed. [facility]01-10[facility] Telephone encounter Note* Telephone Encounter - Joselyn Piresa - 07/20/2024 12:07 PM EST Patient will need an order placed for a consult to rheumatology, new provider starting in [place] by the end of the month and they would like to see her. Please contact patient when order is place sothey can schedule. Thank you, Merlyn Pires [facility]01-10-2025 Instructions* Patient Instructions* Preston Haney MD - 07/20/2024 11:48 AM EST - Discontinue Sucralfate due to allergic reaction. - Apply Triamcinolone Acetonide 0.1% cream twice daily for 2 weeks, then 1 week off, and repeat as needed for rash. - Take Nortriptyline 25 mg at bedtime; prescription sent to [facility]. - Refills for Ropinirole, Lisinopril HCTZ, Lovastatin, and Metoprolol sent to [facility]. - Increase intake of omega-3 oils (e.g., [...] before the next checkup. documented in this encounterPromedica Toledo Hospital01-10-2025 NoteHNO ID: [id number] Author: PRESTON HANEY MD Service: ? Author Type: Physician Type: Progress Notes Filed: 08/19/2024 01:21 Note Text: This note was created using Drop 'til you Shopriter. Subjective Concepcion Donaldson is a 83 year [...] drug eruption. She was evaluated by a geophysical support specialist, who diagnosed the rash as a drug [...] receiving treatment at a spine center in [place]. She reports that her symptoms are improving [...] daily. lisinopril-hydroCHLOROthiazide (ZESTORETIC) (more content not included)... [facility]01-10-2025 History of Present illness Narrative* Preston Haney MD - 07/20/2024 10:59 AM EST This note was created using Drop 'til you Shopriter. Subjective Concepcion Donaldson is a 83 year [...] drug eruption. She was evaluated by a geophysical support specialist, who diagnosed the rash as a drug [...] were improving with methotrexate, but she discontinued themedication due to insurance issues. She expresses frustration [...] receiving treatment at a spine center in [place]. She reports that her symptoms are improving with physical therapy and chiropractic adjustments. She isusing a back support when lifting and notes that it makes a big difference. Concepcion has a family history of diabetes, with her daughter and granddaughter both being diabetic. Shereports that she is trying to watch her [...] 1 tablet by mouth every morning AND 0.5tablets every afternoon. omeprazole (PRILOSEC) 20 mg capsule [...] kg (157 lb 6.5 oz) SpO2 96% BMI27.66 kg/m Physical Exam Constitutional: Appearance: Normal appearance. [...] - 4.00 k/uL 0.94 (L) 0.95 (L) Allegan% % 10.4 14.1 Abs Allegan <0.87 k/uL 0.52 0.66 Eosin% % 4.4 [...] - Discussed potential referral to rheumatology in [place] for further management. - Educated on anti-inflammatory benefits of omega-3 fatty acids; recommended incorporating walnuts,edamame, and ground flaxseed into diet. # Irritable [...] the date of the service which included ehmv-mv-izpt patient care, completing clinical documentation, obtaining and/or reviewing separately obtained history, performing a medically appropriate examination, counseling and educating the patient/family/caregiver, ordering medications, tests, or procedures, independently interpreting results (not separately reported), and communicating results to the patient/family/caregiver. Preston Haney MD documented in this encounterPromedica Toledo Hospital11-20-2024 [facility] Medical Records Department [address] [place] [address] History Physical Exam 05/30/24 0936 MR#: [id number] Acct: [id number] Name: CONCEPCION DONALDSON Rep #: [id number] : 1940 83 From: Gavino Jay DO PCP: Dr. Preston Haney MD Status:[facility] Location: [place] [address] History and Physical Date of Admission: 05/30/24 [...] comfortable and no acute distress Orientation: alert HENMN Head: normal to inspection Ears: hearing grossly [...] cognition Speech: speech laron (more content not included)...[facility] 04-24-2024 NoteHNO ID: [id number] Author: BYRON SUTTON APRN.HEYDI Service: ? Author [...] Outside specialists seen: rheumatology, general surgery, urogyn, training project manager, urology, spine center Medical/Family history review Reviewed [...] ICD10: M15.0 Following with rheum. Byron Sutton APRN.CNPCoshocton [facility]10-[facility] History of Present illness Narrative* Byron Sutton APRN.HEYDI - 04/24/2024 10:29 AM EDT Images from the original note were not [...] Outside specialists seen: rheumatology, general surgery, urogyn, training project manager, urology, spine center Medical/Family history review Reviewed [...] rheum. Byron Sutton APRN.HEYDI documented in this encounterPromedica Toledo Hospital10-15-2024 Instructions* Patient Instructions* Byron Sutton APRN.CNP - 04/24/2024 10:29 AM [...] review all the medicines you take, even zcte-uof-cjdchfi medicines. As you get older, the way medicines work in your body can change. Some medicines, or combinations of medicines, can make you sleepy or dizzy andcan cause you to fall. 3. Have your [...] have certain medical conditions. documented in this encounterPromedica Toledo Hospital08-07-2024 NoteHNO ID: [id number] Author: MAHESH BELLO MA Service: ? Author Type: Manufactured Buildings Repairer Type: Progress Notes Filed: 02/15/2024 12:29 Note Text: POPULATION HEALTH NAVIGATION OUTREACH Action/FYI Patient is on [facility] CURRENT ROSTER Workbench list for below and needs appointment to address: RSV Vaccine(1 - 1-dose 60+ series) Shingrix Vaccine(2 of 3) Hemoglobin A1C (%) Date Value 01/13/2024 5.5 05/02/2021 5.8 Patient due for: Medicare Annual Wellness Visit Spoke to patient. Scheduled 04-24-24 with [employer]PERVISOR [employer]. Noted upcoming appointment to address due care gaps and HCC gap closure. No HCC Reason for Outreach Care Gap/HCC or Scheduling Wellness Visits Care Gaps due: Medicare Annual Wellness Visit Patient Contacted: Spoke to patient/parent/or legal guardian Patient identified by name and : Yes Care Gap/HCC/Scheduling Wellness actions taken: Patient scheduled/pended labs: Medicare Annual Wellness Visit 04/24/2024 in [facility] with BYRON SUTTON - Annual Wellness - 3 month follow up, Please address due care gaps and HCC gap closure 07/20/2024 in [facility] with PRESTON HANEY - 6 month follow up Navigation Signature: Mahesh Belol MA February 15, 2024 9:22 [facility]08-07-2024 History of Present illness Narrative* Mahesh Bello MA - 02/15/2024 9:22 AM EDT POPULATION HEALTH NAVIGATION OUTREACH Action/FYI Patient is on [facility] CURRENT ROSTER Workbench list for below and needs appointment to address: RSV Vaccine(1 - 1-dose 60+ series) Shingrix Vaccine(2 of 3) Hemoglobin A1C (%) Date Value 01/13/2024 5.5 05/02/2021 5.8 Patient due for: Medicare Annual Wellness Visit Spoke to patient. Scheduled 04-24-24 with SUPER[employer]OR [employer]. Noted upcoming appointment to address due care gaps and HCC gap closure. No HCC Reason for Outreach Care Gap/HCC or Scheduling Wellness Visits Care Gaps due: Medicare Annual Wellness Visit Patient Contacted: Spoke to patient/parent/or legal guardian Patient identified by name and : Yes Care Gap/HCC/Scheduling Wellness actions taken: Patient scheduled/pended labs: Medicare Annual Wellness Visit 04/24/2024 in [facility] with BYRON SUTTON - Annual Wellness - 3 month follow up, Please address due care gaps and HCC gap closure 07/20/2024 in [facility] with PRESTON HANEY - 6 month follow up Navigation Signature: Mahesh Bello MA February 15, 2024 9:22 AM documented in this encounterPromedica Toledo Hospital08-07-2024 NotePatient Outreach (NETNAV) CONCEPCION DONALDSON ([id number]) 1940 F Date Time Provider Department 02/15/24 MAHESH BELLOV During your visit today, we recorded the following information about you: Mahesh Bello MA 02/15/2024 12:29 PM Signed POPULATION HEALTH NAVIGATION OUTREACH Action/FYI Patient is on [facility] CURRENT ROSTER Workbench list for below and needs appointment to address: RSV Vaccine(1 - 1-dose 60+ series) Shingrix Vaccine(2 of 3) Hemoglobin A1C (%) Date Value 01/13/2024 5.5 05/02/2021 5.8 Patient due for: Medicare Annual Wellness Visit Spoke to patient. Scheduled 04-24-24 with SUPERVISOR [employer]. Noted upcoming appointment to address due care gaps and HCC gap closure. No HCC Reason for Outreach Care Gap/HCC or Scheduling Wellness Visits Care Gaps due: Medicare Annual Wellness Visit Patient Contacted: Spoke to patient/parent/or legal guardian Patient identified by name and : Yes Care Gap/HCC/Scheduling Wellness actions taken: Patient scheduled/pended labs: Medicare Annual Wellness Visit 04/24/2024 in [facility] with BYRON SUTTON - Annual Wellness - 3 month follow up, Please address due care gaps and HCC gap closure 07/20/2024 in [facility] with PRESTON HANEY - 6 month [...] Date Reviewed: 01/20/2024 Reviewed by: Byron Sutton APRN.[employer]PER[employer]OR [employer] - Fully Assessed Reason for Visit: Population Health Navigation Outreach [3910] [facility]: [facility] as of 02/15/2024 - calcitriol (ROCALTROL) [...] wellness visit, subsequent [Z00*11/ (more content not included)...[facility]07-12-2024 History of Present illness Narrative* Byron Sutton APRN.SUPERVISOR [employer] - 01/20/2024 9:54 AM EDT SUBJECTIVE Concepcion Donaldson is a 83 year [...] 1 tablet by mouth every morning AND 0.5tablets every afternoon. calcitriol (ROCALTROL) 0.25 mcg capsule [...] [Celecoxib] Rash Grass Pollen scratchy throat Nitrofurantoin Allegan* Intolerance Stomach pain Penicillins Hives ACTIVE PROBLEM [...] from today's visit and in agreement with treatmentplan. Questions answered. Agrees to call the office [...] as well as compliance with taking medications. Age- appropriate health preventative measures were discussed. Return in about 3 months (around 04/21/2024) for medicare wellness. And recheck on bp. Byron uStton APRN-HEYDI documented in this encounterPromedica Toledo Hospital06-14-2024 Telephone encounter Note * Telephone Encounter - Dana Vargas LPN - 12/23/2023 8:23 AM EDT Order and records faxed to Dr. Madrid to number provided below. [facility]06-14-[facility]24 Miscellaneous Notes* Telephone Encounter - Dana Vargas LPN - 12/23/2023 8:23 AM EDT Order and records faxed to Dr. Madrid to number provided below. * Telephone Encounter - Preston Haney MD - 12/23/2023 12:35 AM EDT Filed order as requested Print records as requested below * Telephone Encounter - Miranda Munoz LPN - 12/20/2023 1:37 PM EDT Pt is calling to report her arthritis is getting worse and she would like to see residential builder . Pt is asking for an order to be faxed to Dr. Madrid's office along with: Demographics, last 2 OV notes, last 6 months of labs and imaging, copy front and back of insurance card. Pt reports she is mostly going for the arthritis in her hands. Fax to: [phone]. Miranda Munoz LPN documented in this encounterPromedica Toledo Hospital06-14-2024 Telephone encounter Note * Telephone Encounter - Preston Haney MD - 12/23/2023 12:35 AM EDT Filed order as requested Print records as requested below [facility]06-11-[facility]24 Telephone encounter Note* Telephone Encounter - Miranda Munoz LPN - 12/20/2023 1:37 PM EDT Pt is calling to report her arthritis is getting worse and she would like to see residential builder . Pt is asking for an order to be faxed to Dr. Madrid's office along with: Demographics, last 2 OV notes, last 6 months of labs and imaging, copy front and back of insurance card. Pt reports she is mostly going for the arthritis in her hands. Fax to: [phone]. Miranda Munoz LPN [facility]02-12-2024 Miscellaneous Notes* Letter - Coordinator, Mammography - 08/22/2023 9:20 AM EST August 22, 2023 PID: [id number] Concepcion Donaldson [address] [place] [address] Dear Ms. Donaldson, We are pleased to [...] report will be kept [facility] as part of your permanent medical record and are available for your continuing care. Thank you for allowing us to help in meeting your health care needs. Sincerely, Dr. Marcelo Interpreting Radiologist [facility] (Normal over 40) documented in this encounterPromedica Toledo Hospital02-09-2024 History of Present illness Narrative* Mariann Manning Mammo Tech - 08/19/2023 10:10 AM EST Radiology Service Progress Note PATIENT NAME: Concepcion Donaldson DATE OF SERVICE: August 19, 2023 TIME: 9:57 AM PATIENT IDENTITY VERIFICATION COMPLETED USING TWO (2) IDENTIFIERS: Name and Date of confirmedby patient verbally. FALL SCREENING: Has the patient had 2 falls in the last year or 1 fall with injury or currently using an Ambulatory Assistive Device (Walker, Cane, Wheelchair, Crutches, etc.)? No PATIENT GENDER DATA: Female. status: : No status: NO. PATIENT RELEVANT IMPLANT DATA REVIEWED: Not Applicable PATIENT PRESENTS WITH AN IMPLANTABLE OR ATTACHED DENTAL PRACTICE MANAGER: No RADIOLOGY DEPARTMENT: Mammography PERIPHERAL IV DATA: Not applicable SIGNED BY: Mariann Manning A[place]ia August 19, 2023 9:57 AM documented in this encounterPromedica Toledo Hospital01-10-2024 History of Present illness Narrative* Preston Haney MD - 07/20/2023 10:34 AM EST This note was created using Drop 'til you Shopriter. Subjective Concepcion Donaldson is a 82 year [...] up now. Working with pain management. Right usedto be the more painful. Needs cane now. Overdid it with moving (packing up place, etc). Working with chiropractor. Left leg more red and swollen starting when sciatica started. Not hot. Has redness of right leg too. Usually wears thigh high support stockings. DJD changes in hands. Difficult to peel things. 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 Knows DJD affecting back and has spinal stenosis. Follows with Dr. Owusu. Turns out not having recurrent UTIs. Treatment with compounded med from [facility]. Doing well. PAST MEDICAL HISTORY Diagnosis Date [...] 1 tablet by mouth every morning AND 0.5tablets every afternoon. nortriptyline (PAMELOR) 25 mg capsule [...] 4.00 k/uL 1.10 0.81 (L) 0.94 (L) [place]% % 12.8 10.8 10.4 Abs [place] <0.87 k/uL 0.76 0.47 0.52 Eosin% % [...] screening by mammogram Z12.31 CESAR SCREENING W RIVAS Patient would pursue furtherr evaluation and treatment [...] Continue present management. Needs to keep working ondiet and exercise with lifestyle changes for effective weight loss as well as prevention of DM, andcontrol of BP and lipids. Bowels better with recommendations per Dr. Jay. Continue present management. BP controlled. Continue present management. Preston Haney MD documented in this encounterPromedica Toledo Hospital09-19-2023 History of Present illness Narrative* Birgit Dean, RT(R) - 03/29/2023 10:00 AM EDT Radiology Service Progress Note PATIENT NAME: Concepcion Donaldson DATE OF SERVICE: March 29, 2023 TIME: 9:36 AM PATIENT IDENTITY VERIFICATION COMPLETED USING TWO (2) IDENTIFIERS: Name and Date of confirmedby patient verbally. FALL SCREENING: Has the patient [...] 29, 2023 9:36 AM documented in this encounterPromedica Toledo Hospital06-15-2023 Miscellaneous Notes* Telephone Encounter - Abby Gaitan LPN - 12/23/2022 1:20 PM EDT Called and updated patient that order is entered and does not need appointment until March 2023for the 6 month exam. Patient voiced understanding. Abby Gaitan LPN * Telephone Encounter - Miah Mart MD - 12/23/2022 1:14 PM EDT Order for left-sided mammogram and is completed * Telephone Encounter - Flakita Grey RN - 12/21/2022 3:53 PM EDT Patient called in wanting to schedule her 6 month follow up mammogram following her left breast biopsy completed around September with Dr.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 evaluation note* Diagnosis Recurrent UTI Urinary tract infection, site not specified documented in this encounter [facility] note* Diagnosis UTI symptoms- Primary Other symptoms involving urinary system documented in this encounter [facility] note* Diagnosis Dysuria- Primary documented in this encounter [facility] note* Diagnosis Acute cystitis without hematuria- Primary Acute cystitis documented in this encounter [facility] note* Diagnosis Onset Date Resolution Status Constipation acute Fecal smearing acute Constipation acute Fecal smearing acute [facility]* Diagnosis Primary hypertension- Primary Unspecified essential hypertension Need for shingles vaccine Need for prophylactic vaccination and inoculation against other viral diseases Encounter for immunization Need for other specified prophylactic vaccination against single bacterial disease Mixed hyperlipidemia Irritable bowel syndrome with both constipation and diarrhea IFG (impaired fasting glucose) Impaired fasting glucose documented in this encounter [facility] note* Diagnosis Microcalcifications of the breast- Primary Mammographic microcalcification documented in this encounter [facility] note* Diagnosis Onset Date Resolution Status Constipation chronic Constipation chronic [facility] Work Phone: evaluation note* Diagnosis Microcalcifications of the breast- Primary Mammographic microcalcification documented in this encounter [facility] note* Diagnosis Microcalcifications of the breast- Primary Mammographic microcalcification [facility] Diagnosis Microcalcifications of the breast Mammographic microcalcification [facility] Diagnosis Encounter for screening mammogram for malignant neoplasm of breast Other screening mammogram documented in this encounter [facility] note* Diagnosis Breast cancer screening by mammogram documented in this encounter [facility] note* Diagnosis Primary hypertension- Primary Unspecified essential [...] screening by mammogram [facility] Diagnosis Polyarthritis- Primary Unspecified polyarthropathy or polyarthritis, site unspecified [facility] Diagnosis Primary hypertension- Primary Unspecified essential [...] vitamin D deficiency [facility] Diagnosis Medicare annual wellness visit, subsequent- Primary Routine general medical examination at a health care facility Primary hypertension Unspecified essential hypertension Primary osteoarthritis involving multiple joints [facility] Primary osteoarthritis involving multiple joints- Primary [facility] Diagnosis Primary hypertension- Primary Unspecified essential [...] single bacterial disease [facility] Breast cancer screening by mammogram [facility] Diagnosis Bilateral hand pain- Primary Pain in limb Primary osteoarthritis involving multiple joints Raynaud's disease without gangrene History of gastric ulcer Personal history of other diseases of digestive system [facility] Bilateral hand pain Pain in limb Primary osteoarthritis involving multiple joints Raynaud's disease without gangrene Shortness of breath Neuropathy Mononeuritis of unspecified site History of gastric ulcer Personal history of other diseases of digestive system [facility] Diagnosis Bilateral hand pain- Primary Pain in limb [facility] Pain of right hand- Primary Pain in limb [facility] Diagnosis Primary hypertension- Primary Unspecified essential hypertension WALTERS (dyspnea on exertion) Other dyspnea and respiratory abnormality Asymmetric hypertrophy of ventricular septum Heart murmur Undiagnosed cardiac murmurs Elevated uric acid in blood Other abnormal blood chemistry [facility] Pain of right hand- Primary Pain in limb Long-term use of Plaquenil Encounter for long-term (current) use of other medications Swelling of right middle finger [facility] High risk medication use- Primary Encounter for long-term (current) use of other medications Dry eye syndrome of bilateral lacrimal glands Tear film insufficiency, unspecified Pseudophakia of both eyes Lens replaced by other means Posterior vitreous detachment of both eyes Vitreous degeneration Prediabetes Other abnormal glucose [facility] Diagnosis Arthritis of finger- Primary Pain of right hand Pain in limb Swelling of right middle finger 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 [facility] Diagnosis Swelling of right middle finger- Primary Bilateral hand pain Pain in limb Pain of right hand Pain in limb Primary osteoarthritis involving multiple joints Raynaud's disease without gangrene History of gastric ulcer Personal history of other diseases of digestive system documented in this encounter [facility] Diagnosis Mixed hyperlipidemia- Primary Primary hypertension Unspecified essential hypertension Asymmetric hypertrophy of ventricular septum Abnormal stress test Other nonspecific abnormal cardiovascular system function study Screening for depression Encounter for screening examination for other mental health and behavioral disorders Primary osteoarthritis involving multiple joints Raynaud's disease without gangrene documented in this encounter [facility] for referral (narrative)* Diagnostic Procedure Only (Routine) - Closed Specialty Diagnoses / Procedures Referred By [facility] Referred To Contact CT IMAGING Diagnoses Recurrent UTI Procedures CT FLANK WO IVCON CT ABD & PELVIS W/O CONTRAST Blanca Munoz MD [address] [address] [address] Imaging Referral ID Status Reason Start Date Expiration Date Visits Re quested Visits Authorized [id number] Closed 12/29/2021 01/28/2022 1 1 [facility] for referral (narrative)* Diagnostic Procedure Only (Routine) - Pending Review Specialty Diagnoses / Procedures Referred By Contteresa t Referred To Contact BR IMAGING Diagnoses Microcalcifications of the breast Procedures CESAR DIAGNOSTIC LEFT DIAGNOSTIC MAMMOGRAPHY COMPUTER-AIDED DETCJ UNI Dearborn, Miah P, MD [address] [place] [address] Br Imaging [address] [place] [address] Referral ID Status Reason Start Date Expiration Date Visits Requested Visits Authorized [id number] Pending Review Auto-Generat ed Referral 12/23/2022 01/22/2024 1 1 [facility] for referral (narrative)* Diagnostic Procedure Only (Routine) - Closed Specialty Diagnoses / Procedures Referred By Contac t Referred To Contact BR IMAGING Diagnoses Microcalcifications of the breast Procedures CESAR DIAGNOSTIC LEFT DIAGNOSTIC MAMMOGRAPHY COMPUTER-AIDED DETCJ Miah Chandler MD [address] [place] [address] Br Imaging [address] [place] [address] Referral ID Status Reason Start Date Expiration Date V isits Requested Visits Authorized [id number] Closed Auto-Generate d Referral 12/23/2022 01/22/2024 1 1 T [facility] for referral (narrative)* Diagnostic Procedure Only (Routine) - Closed Specialty Diagnoses / Procedures Referred By Contac t Referred To Contact BR IMAGING Diagnoses Encounter for screening mammogram for malignant neoplasm of breast Procedures CESAR SCREENING W RIVAS SCREENING BREAST DGTL RIVAS UNI/BILAT ADD ON SCREENING MAMMOGRAPHY BI 2-VIEW BREAST INC CAD Karishma Talbot MD [address] [place] [address] Br Imaging [address] [place] [address] Referral ID Status Reason Start Date Expiration Date V isits Requested Visits Authorized [id number] Closed Auto-Generate d Referral 12/29/2021 07/10/2022 1 1 [facility] for referral (narrative)* Diagnostic Procedure Only (Routine) - Closed Specialty Diagnoses / Procedures Referred By [facility] Referred To Contact BR IMAGING Diagnoses Breast cancer screening by mammogram Procedures CESAR SCREENING W RIVAS SCREENING DIGITAL BREAST TOMOSYNTHESIS BI SCREENING MAMMOGRAPHY BI 2-VIEW BREAST INC CAD Preston Haney MD [address] [place] [address] Br Imaging [address] [place] [address] Referral ID Status Reason Start Date Expiration Date V isits Requested Visits Authorized [id number] Closed Auto-Generate d Referral 07/20/2023 08/18/2024 1 1 [facility] for referral (narrative)No reason for referral information [facility] Phone: Reason for visit Narrative* Diagnostic Procedure Only (Routine) - Closed Specialty Diagnoses / Procedures Referred By [facility] Referred To Contact CT IMAGING Diagnoses Recurrent UTI Procedures CT FLANK WO IVCON CT ABD & PELVIS W/O CONTRAST Blanca Munoz MD [address] [facility] [address] [address] [place] [address] Ct Imaging Referral ID Status Reason Start Date Expiration Date Visits Re quested Visits Authorized [id number] Closed 12/29/2021 01/28/2022 1 1 [facility] for visit Narrative* Diagnostic Procedure Only (Routine) - Closed Specialty Diagnoses / Procedures Referred [facility] Referred To Contact BR IMAG[facility] Diagnoses Microcalcifications of the breast Procedures CESAR DIAGNOSTIC LEFT DIAGNOSTIC MAMMOGRAPHY COMPUTER-AIDED DETCJ Miah Chandler MD [address] [place] [address] Br Imaging [address] [place] [address] Referral ID Status Reason Start Date Expiration Date V isits Requested Visits Authorized [id number] Closed Auto-Generate d Referral 12/23/2022 01/22/2024 1 1 [facility] for visit Narrative* Diagnostic Procedure Only (Routine) - Closed Specialty Diagnoses / Procedures [facility]erred [facility] Referred To Contact BR IM[facility] Diagnoses Encounter for screening mammogram for malignant neoplasm of breast Procedures CESAR SCREENING W RIVAS SCREENING BREAST DGTL RIVAS UNI/BILAT ADD ON SCREENING MAMMOGRAPHY BI 2-VIEW BREAST INC CAD Karishma Talbot MD [address] [place] [address] Br Imaging [address] [place] [address] Referral ID Status Reason Start Date Expiration Date V isits Requested Visits Authorized [id number] Closed Auto-Generate d Referral 12/29/2021 07/10/2022 1 1 [facility] for visit Narrative* Diagnostic Procedure Only (Routine) - Closed Specialty Diagnoses / Procedures Referred By Maritza silva Referred To Contact BR IMAGING Diagnoses Breast cancer screening by mammogram Procedures CESAR SCREENING W RIVAS SCREENING DIGITAL BREAST TOMOSYNTHESIS BI SCREENING MAMMOGRAPHY BI 2-VIEW BREAST INC CAD Preston Haney MD [address] [place] [id number] Br Imaging [address] [place] [address] Referral ID Status Reason Start Date Expiration Date V isits Requested Visits Authorized [id number] Closed Auto-Generate d Referral 07/20/2023 08/18/2024 1 1 [facility] for visit Narrative* Diagnostic Procedure Only (Routine) - Closed Specialty Diagnoses / Procedures Referred By Maritza silva Referred To Contact BR IMAGING Diagnoses Breast cancer screening by mammogram Procedures CESAR SCREENING W RIVAS SCREENING DIGITAL BREAST TOMOSYNTHESIS BI SCREENING MAMMOGRAPHY BI 2-VIEW BREAST INC CAD Preston Haney MD [address] [place] [address] Phone: tel: fax: [facility] [address] [place] [address] Referral ID Status Reason Start Date Expiration Date V isits Requested Visits Authorized [id number] Closed Auto-Generate d Referral 07/20/2024 08/19/2025 1 1 [facility] for visit Narrative* Diagnostic Procedure Only (Routine) - Closed Specialty Diagnoses / Procedures Referred By Maritza silva Referred To Contact XR IMAGING Diagnoses Primary osteoarthritis involving multiple joints Raynaud's disease without gangrene Shortness of breath Neuropathy History of gastric ulcer Bilateral hand pain Procedures XR FOOT GENERAL 3V AP/LAT/OBL BILATERAL RADEX FOOT COMPLETE MINIMUM 3 VIEWS Lexis Roca PA-C [address] [place] [address] Phone: tel: fax: [place] [address] Referral ID Status Reason Start Date Expiration Date V isits Requested Visits Authorized [id number] Closed Auto-Generate d Referral 09/20/2024 10/20/2025 1 1 [facility] Medications Administered Section Active Administered Medications - up to 3 most recent administrations Medication Order MAR Action Action Date Dose Rate Site fluorescein-benoxinate 0.25-0.4 % 1 Drop (FLURESS) 1 Drop, BOTH EYES, DIRECTED, Starting on Annamaria 10/08/21 at 1000, Until Annamaria 10/08/21 at 2159, Administer for applanation tonometry. 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 Advance Directive(s) 08/18/2016 1:02 PM Advance Directive(s) 08/16/2016 1:39 PM Advance Directive(s) 04/18/2009 5:30 AM Advance Directive(s) 08/25/2006 12:00 AM Documents on File Type Date Recorded 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 Advance Directive(s) 08/18/2016 1:02 PM Advance Directive(s) 08/16/2016 1:39 PM Advance Directive(s) 04/18/2009 5:30 AM Advance Directive(s) 08/25/2006 12:00 AM Documents on File Type Date Recorded 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 Advance Directive(s) 04/18/2009 5:30 AM Advance Directive(s) 08/25/2006 Documents on File Type Date Recorded 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 Advance Directive(s) 04/18/2009 5:30 AM [...] ABN MAMM Reason for Visit Constipation Constipation Chief Complaint Admit Date RE-EST (SELF) November 14, 2024 11:30a m DYSPNEA January 03, 2025 6:10 am DYSPNEA January 03, 2025 3:16 pm Reason for Visit Admit Date SOB (shortness of breath) November 14, 2024 11:30am Essential (primary) hypertension November 11:30am Family History No Family History Records Found Relationship Condition Age at Onset Recorded Date/T adrianna mother Hypertension Unknown brother Hypertension Unknown father Cardiac disease Unknown Summary Purpose Reason for Referral Specialty Diagnoses / Procedures Referred By Maritza silva Referred To Contact Rheumatology Diagnoses Polyarthritis Procedures CONSULT TO RHEUM/IMMUN DISEASE Preston Haney MD [address] [place] [address] Jessica Madrid [address] [place] [address] Referral ID Status Reason Start Date Expiration Date Visits Requested Visits Authorized [id number] Ref Not Required PCP Requested Referral 12/23/2023 12/19/2024 1 1 Specialty Diagnoses / Procedures Referred By Maritza silva Referred To Contact Rheumatology Diagnoses Primary osteoarthritis involving multiple joints Procedures CONSULT TO RHEUM/IMMUN DISEASE OFFICE/OUTPATIENT [facility] 60 MINUTES Elisabeth Hoff APRN.[employer] [address] [place] [address] Referral ID Status Reason Start Date Expiration Date Visits Requested Visits Authorized [id number] Authorized PCP Requested Referral 07/20/2024 07/20/2025 1 1 Additional Source Comments Source Comments (unrecognize d section and content) In the event this informatio n is protected by the Federal Confidentiality of Alcohol and Drug Abuse Patient Records regulations: The Federal rules restrict any use of the information to criminally investigate or prosecute any alcohol or drug abuse patient.[facility] the event this information is protected by the Federal Confidentiality of Alcohol and Drug Abuse Patient Records regulations: The Federal rules restrict any use of the information to criminally investigate or prosecute any alcohol or drug abuse patient.[facility] the event this information is protected by the Federal Confidentiality of Alcohol and Drug Abuse Patient Records regulations: The Federal rules restrict any use of the information to criminally investigate or prosecute any alcohol or drug abuse patient.[facility] the event this information is protected by the Federal Confidentiality of Alcohol and Drug Abuse Patient Records regulations: The Federal rules restrict any use of the information to criminally investigate or prosecute any alcohol or drug abuse patient.[facility] the event this information is protected by the Federal Confidentiality of Alcohol and Drug Abuse Patient Records regulations: The Federal rules restrict any use of the information to criminally investigate or prosecute any alcohol or drug abuse patient.[facility]In the event this information is protected by the Federal Confidentiality of Alcohol and Drug Abuse Patient Records regulations: The Federal rules restrict any use of the information to criminally investigate or prosecute any alcohol or drug abuse patient.[facility]In the event this information is protected by the Federal Confidentiality of Alcohol and Drug Abuse Patient Records regulations: The Federal rules restrict any use of the information to criminally investigate or prosecute any alcohol or drug abuse patient.[facility]In the event this information is protected by the Federal Confidentiality of Alcohol and Drug Abuse Patient Records regulations: The Federal rules restrict any use of the information to criminally investigate or prosecute any alcohol or drug abuse patient.[facility]In the event this information is protected by the Federal Confidentiality of Alcohol and Drug Abuse Patient Records regulations: The Federal rules restrict any use of the information to criminally investigate or prosecute any alcohol or drug abuse patient.[facility]In the event this information is protected by the Federal Confidentiality of Alcohol and Drug Abuse Patient Records regulations: The Federal rules restrict any use of the information to criminally investigate or prosecute any alcohol or drug abuse patient.[facility] HospitalIn the event this information is protected by the Federal Confidentiality of Alcohol and Drug Abuse Patient Records regulations: The Federal rules restrict any use of the information to criminally investigate or prosecute any alcohol or drug abuse patient.[facility]In the event this information is protected by the Federal Confidentiality of Alcohol and Drug Abuse Patient Records regulations: The Federal rules restrict any use of the information to criminally investigate or prosecute any alcohol or drug abuse patient.[facility]In the event this information is protected by the Federal Confidentiality of Alcohol and Drug Abuse Patient Records regulations: The Federal rules restrict any use of the information to criminally investigate or prosecute any alcohol or drug abuse patient.[facility]In the event this information is protected by the Federal Confidentiality of Alcohol and Drug Abuse Patient Records regulations: The Federal rules restrict any use of the information to criminally investigate or prosecute any alcohol or drug abuse patient.[facility]In the event this information is protected by the Federal Confidentiality of Alcohol and Drug Abuse Patient Records regulations: The Federal rules restrict any use of the information to criminally investigate or prosecute any alcohol or drug abuse patient.[facility] HospitalIn the event this information is protected by the Federal Confidentiality of Alcohol and Drug Abuse Patient Records regulations: The Federal rules restrict any use of the information to criminally investigate or prosecute any alcohol or drug abuse patient.[facility] HospitalIn the event this information is protected by the Federal Confidentiality of Alcohol and Drug Abuse Patient Records regulations: The Federal rules restrict any use of the information to criminally investigate or prosecute any alcohol or drug abuse patient.[facility]In the event this information is protected by the Federal Confidentiality of Alcohol and Drug Abuse Patient Records regulations: The Federal rules restrict any use of the information to criminally investigate or prosecute any alcohol or drug abuse patient.[facility] HospitalIn the event this information is protected by the Federal Confidentiality of Alcohol and Drug Abuse Patient Records regulations: The Federal rules restrict any use of the information to criminally investigate or prosecute any alcohol or drug abuse patient.[facility] HospitalIn the event this information is protected by the Federal Confidentiality of Alcohol and Drug Abuse Patient Records regulations: The Federal rules restrict any use of the information to criminally investigate or prosecute any alcohol or drug abuse patient.[facility] HospitalIn the event this information is protected by the Federal Confidentiality of Alcohol and Drug Abuse Patient Records regulations: The Federal rules restrict any use of the information to criminally investigate or prosecute any alcohol or drug abuse patient.[facility]In the event this information is protected by the Federal Confidentiality of Alcohol and Drug Abuse Patient Records regulations: The Federal rules restrict any use of the information to criminally investigate or prosecute any alcohol or drug abuse patient.[facility]In the event this information is protected by the Federal Confidentiality of Alcohol and Drug Abuse Patient Records regulations: The Federal rules restrict any use of the information to criminally investigate or prosecute any alcohol or drug abuse patient.[facility] HospitalIn the event this information is protected by the Federal Confidentiality of Alcohol and Drug Abuse Patient Records regulations: The Federal rules restrict any use of the information to criminally investigate or prosecute any alcohol or drug abuse patient.[facility] HospitalIn the event this information is protected by the Federal Confidentiality of Alcohol and Drug Abuse Patient Records regulations: The Federal rules restrict any use of the information to criminally investigate or prosecute any alcohol or drug abuse patient.[facility] HospitalIn the event this information is protected by the Federal Confidentiality of Alcohol and Drug Abuse Patient Records regulations: The Federal rules restrict any use of the information to criminally investigate or prosecute any alcohol or drug abuse patient.[facility]In the event this information is protected by the Federal Confidentiality of Alcohol and Drug Abuse Patient Records regulations: The Federal rules restrict any use of the information to criminally investigate or prosecute any alcohol or drug abuse patient.[facility] HospitalIn the event this information is protected by the Federal Confidentiality of Alcohol and Drug Abuse Patient Records regulations: The Federal rules restrict any use of the information to criminally investigate or prosecute any alcohol or drug abuse patient.[facility] the event this information is protected by the Federal Confidentiality of Alcohol and Drug Abuse Patient Records regulations: The Federal rules restrict any use of the information to criminally investigate or prosecute any alcohol or drug abuse patient.[facility] HospitalIn the event this information is protected by the Federal Confidentiality of Alcohol and Drug Abuse Patient Records regulations: The Federal rules restrict any use of the information to criminally investigate or prosecute any alcohol or drug abuse patient.[facility] HospitalIn the event this information is protected by the Federal Confidentiality of Alcohol and Drug Abuse Patient Records regulations: The Federal rules restrict any use of the information to criminally investigate or prosecute any alcohol or drug abuse patient.[facility] the event this information is protected by the Federal Confidentiality of Alcohol and Drug Abuse Patient Records regulations: The Federal rules restrict any use of the information to criminally investigate or prosecute any alcohol or drug abuse patient.[facility] HospitalIn the event this information is protected by the Federal Confidentiality of Alcohol and Drug Abuse Patient Records regulations: The Federal rules restrict any use of the information to criminally investigate or prosecute any alcohol or drug abuse patient.[facility] HospitalIn the event this information is protected by the Federal Confidentiality of Alcohol and Drug Abuse Patient Records regulations: The Federal rules restrict any use of the information to criminally investigate or prosecute any alcohol or drug abuse patient.[facility] HospitalIn the event this information is protected by the Federal Confidentiality of Alcohol and Drug Abuse Patient Records regulations: The Federal rules restrict any use of the information to criminally investigate or prosecute any alcohol or drug abuse patient.[facility] HospitalIn the event this information is protected by the Federal Confidentiality of Alcohol and Drug Abuse Patient Records regulations: The Federal rules restrict any use of the information to criminally investigate or prosecute any alcohol or drug abuse patient.[facility] HospitalIn the event this information is protected by the Federal Confidentiality of Alcohol and Drug Abuse Patient Records regulations: The Federal rules restrict any use of the information to criminally investigate or prosecute any alcohol or drug abuse patient.[facility] HospitalIn the event this information is protected by the Federal Confidentiality of Alcohol and Drug Abuse Patient Records regulations: The Federal rules restrict any use of the information to criminally investigate or prosecute any alcohol or drug abuse patient.[facility] HospitalIn the event this information is protected by the Federal Confidentiality of Alcohol and Drug Abuse Patient Records regulations: The Federal rules restrict any use of the information to criminally investigate or prosecute any alcohol or drug abuse patient.[facility] HospitalIn the event this information is protected by the Federal Confidentiality of Alcohol and Drug Abuse Patient Records regulations: The Federal rules restrict any use of the information to criminally investigate or prosecute any alcohol or drug abuse patient.[facility] HospitalIn the event this information is protected by the Federal Confidentiality of Alcohol and Drug Abuse Patient Records regulations: The Federal rules restrict any use of the information to criminally investigate or prosecute any alcohol or drug abuse patient.[facility] HospitalIn the event this information is protected by the Federal Confidentiality of Alcohol and Drug Abuse Patient Records regulations: The Federal rules restrict any use of the information to criminally investigate or prosecute any alcohol or drug abuse patient.[facility] HospitalIn the event this information is protected by the Federal Confidentiality of Alcohol and Drug Abuse Patient Records regulations: The Federal rules restrict any use of the information to criminally investigate or prosecute any alcohol or drug abuse patient.[facility] HospitalIn the event this information is protected by the Federal Confidentiality of Alcohol and Drug Abuse Patient Records regulations: The Federal rules restrict any use of the information to criminally investigate or prosecute any alcohol or drug abuse patient.[facility] HospitalIn the event this information is protected by the Federal Confidentiality of Alcohol and Drug Abuse Patient Records regulations: The Federal rules restrict any use of the information to criminally investigate or prosecute any alcohol or drug abuse patient.[facility]In the event this information is protected by the Federal Confidentiality of Alcohol and Drug Abuse Patient Records regulations: The Federal rules restrict any use of the information to criminally investigate or prosecute any alcohol or drug abuse patient.[facility] HospitalIn the event this information is protected by the Federal Confidentiality of Alcohol and Drug Abuse Patient Records regulations: The Federal rules restrict any use of the information to criminally investigate or prosecute any alcohol or drug abuse patient.[facility] HospitalIn the event this information is protected by the Federal Confidentiality of Alcohol and Drug Abuse Patient Records regulations: The Federal rules restrict any use of the information to criminally investigate or prosecute any alcohol or drug abuse patient.[facility] HospitalIn the event this information is protected by the Federal Confidentiality of Alcohol and Drug Abuse Patient Records regulations: The Federal rules restrict any use of the information to criminally investigate or prosecute any alcohol or drug abuse patient.[facility] HospitalIn the event this information is protected by the Federal Confidentiality of Alcohol and Drug Abuse Patient Records regulations: The Federal rules restrict any use of the information to criminally investigate or prosecute any alcohol or drug abuse patient.[facility] HospitalIn the event this information is protected by the Federal Confidentiality of Alcohol and Drug Abuse Patient Records regulations: The Federal rules restrict any use of the information to criminally investigate or prosecute any alcohol or drug abuse patient.[facility] HospitalIn the event this information is protected by the Federal Confidentiality of Alcohol and Drug Abuse Patient Records regulations: The Federal rules restrict any use of the information to criminally investigate or prosecute any alcohol or drug abuse patient.[facility] HospitalIn the event this information is protected by the Federal Confidentiality of Alcohol and Drug Abuse Patient Records regulations: The Federal rules restrict any use of the information to criminally investigate or prosecute any alcohol or drug abuse patient.[facility] HospitalIn the event this information is protected by the Federal Confidentiality of Alcohol and Drug Abuse Patient Records regulations: The Federal rules restrict any use of the information to criminally investigate or prosecute any alcohol or drug abuse patient.[facility] Reason for Visit (unrecogniz ed section and [...] Labs prior Breast Problem 07/20/2023 Mammogram at [facility] Specialty [place] Reason Comments Orders Reason Onset Date Comments Population Health Navigation Outreach 02/15/2024 Kenneth Bob PCSA Reason Comments Medicare Wellness Exam Reason Onset Date Comments Refill Request 07/25/2024 Reason Comments Insurance Authorization Reason Onset Date Comments F/U 6 months Labs prior Breast Problem 07/20/2024 Mammogram at [facility] Reason Comments Request Outside Medical Records Reason Comments Received Outside Medical Records [facility] Reason Comments Joint Pain Osteoarthritis Specialty Diagnoses / Procedures Referred By Maritza silva Referred To Contact Rheumatology Diagnoses Primary osteoarthritis involving multiple joints Procedures CONSULT TO RHEUM/IMMUN DISEASE OFFICE/OUTPATIENT NEW HIGH MDM 60 MINUTES Elisabeth Hoff APRN.[employer] [address] [place] [address] Phone: tel: fax: Referral ID Status Reason Start Date Expiration Date V isits Requested Visits Authorized [id number] Closed PCP Requested Referral 07/20/2024 07/20/2025 1 [...] MINUTES Lexis Roca PA-C [address] [place] [address] Phone: tel: fax: Referral ID Status Reason Start Date Expiration Date V isits Requested Visits Authorized [id number] Closed PCP Requested Referral 10/11/2024 10/11/2025 1 1 Reason Comments New Pain Specialty Diagnoses / Procedures Referred By Contac t Referred To Contact Orthopedics Diagnoses Pain of right hand Swelling of right middle finger Procedures CONSULT TO ORTHOPAEDICS OFFICE/OUTPATIENT NEW HIGH MDM 60 MINUTES Lexis Roca PA-C [address] [place] [address] Phone: tel: fax: Referral ID Status Reason Start Date Expiration Date V isits Requested Visits Authorized [id number] Closed PCP Requested Referral 10/11/2024 10/11/2025 1 1 Reason Comments Follow Up Care Teams (unrecognized sec tion and content) Cryptologic Technician Operator/Analyst Relationship Specialty Start Date End Date Preston Haney MD [address] [place] [address] PCP - General Internal Medicine 11/08/16 Cryptologic Technician Operator/Analyst Relationship Specialty Start Date End Date Preston Haney MD [address] [place] [address] PCP - General Internal Medicine 11/08/16 Cryptologic Technician Operator/Analyst Relationship Specialty Start Date End Date Preston Haney MD [address] [place] [address] PCP - General Internal Medicine 11/08/16 Cryptologic Technician Operator/Analyst Relationship Specialty Start Date End Date Preston Haney MD [address] [place] [address] PCP - General Internal Medicine 11/08/16 Cryptologic Technician Operator/Analyst Relationship Specialty Start Date End Date Preston Haney MD [address] [place] [address] PCP - General Internal Medicine 11/08/16 Cryptologic Technician Operator/Analyst Relationship Specialty Start Date End Date Preston Haney MD [address] [facility] [place] [address] PCP - General Internal Medicine 11/08/16 Cryptologic Technician Operator/Analyst Relationship Specialty Start Date End Date Preston Haney MD [address] [facility] [place] [address] PCP - General Internal Medicine 11/08/16 Cryptologic Technician Operator/Analyst Relationship Specialty Start Date End Date Preston Haney MD [address] [facility] [place] [address] PCP - General Internal Medicine 11/08/16 Cryptologic Technician Operator/Analyst Relationship Specialty Start Date End Date Preston Haney MD [address] [facility] [place] [address] PCP - General Internal Medicine 11/08/16 Cryptologic Technician Operator/Analyst Relationship Specialty Start Date End Date Preston Haney MD [address] [facility] [place] [address] PCP - General Internal Medicine 11/08/16 Cryptologic Technician Operator/Analyst Relationship Specialty Start Date End Date Preston Haney MD [address] [facility] [place] [address] PCP - General Internal Medicine 11/08/16 Team Status: Active Member Role Status Dates Dr. Parvez Roman MD Family Provider Active Dr. Preston Haney MD Primary Care Provider Active Team Status: Inactive Member Role Status Dates Dr. Preston Haney MD Primary Care Provider, Referr ing Provider Active Janeth Lopez DRAWING MACHINE OPERATOR, DRAWING MACHINE OPERATOR-C Attending Provider Active Team Status: Inactive Member Role Status Dates Dr. Preston Haney MD Primary Care Provider Active Dr. Miah Mart MD Attending Provider, Referring Provider Active Cryptologic Technician Operator/Analyst Relationship Specialty Start Date End Date Preston Haney MD [address] [facility] [place] [address] PCP - General Internal Medicine 11/08/16 Cryptologic Technician Operator/Analyst Relationship Specialty Start Date End Date Preston Haney MD [address] [facility] [place] [address] PCP - General Internal Medicine 11/08/16 Cryptologic Technician Operator/Analyst Relationship Specialty Start Date End Date Preston Haney MD [address] [facility] [place] [address] PCP - General Internal Medicine 11/08/16 Cryptologic Technician Operator/Analyst Relationship Specialty Start Date End Date Preston Haney MD [address] [facility] [place] [address] PCP - General Internal Medicine 11/08/16 Cryptologic Technician Operator/Analyst Relationship Specialty Start Date End Date Preston Haney MD [address] [facility] [place] [address] PCP - General Internal Medicine 11/08/16 Cryptologic Technician Operator/Analyst Relationship Specialty Start Date End Date Preston Haney MD [address] [facility] [place] [address] PCP - General Internal Medicine 11/08/16 Cryptologic Technician Operator/Analyst Relationship Specialty Start Date End Date Preston Haney MD [address] [facility] [place] [address] PCP - General Internal Medicine 11/08/16 Cryptologic Technician Operator/Analyst Relationship Specialty Start Date End Date Preston Haney MD [address] [facility] [place] [address] PCP - General Internal Medicine 11/08/16 Cryptologic Technician Operator/Analyst Relationship Specialty Start Date End Date Preston Haney MD [address] [place] [address] PCP - General Internal Medicine 11/08/16 Cryptologic Technician Operator/Analyst Relationship Specialty Start Date End Date Preston Haney MD [address] [place] [address] PCP - General Internal Medicine 11/08/16 Cryptologic Technician Operator/Analyst Relationship Specialty Start Date End Date Preston Haney MD [address] [place] [address] PCP - General Internal Medicine 11/08/16 Elisabeth Hoff, GEOTECHNICAL ENGINEER.[employer] [address] [place] [address] Switchboard Wirer Internal Medicine 06/18/24 Byron Sutton GEOTECHNICAL ENGINEER.SUPERVISOR [employer] LOADING [address] [place] [address] Switchboard Wirer Internal Medicine 06/18/24 Cryptologic Technician Operator/Analyst Relationship Specialty Start Date End Date Preston Haney MD [address] [place] [address] PCP - General Internal Medicine 11/08/16 Elisabeth Hoff, GEOTECHNICAL ENGINEER.[employer] [address] [place] [address] Switchboard Wirer Internal Medicine 06/18/24 Byron Sutton APRN.SUPERVISOR [employer] [address] [place] [address] Switchboard Wirer Internal Medicine 06/18/24 Cryptologic Technician Operator/Analyst Relationship Specialty Start Date End Date Preston Haney MD [address] [place] [address] PCP - General Internal Medicine 11/08/16 Elisabeth Hoff APRN.[employer] [address] [place] [address] Switchboard Wirer Internal Medicine 06/18/24 Byron Sutton APRN.SUPERVISOR [employer] [address] [place] [address] Switchboard Wirer Internal Medicine 06/18/24 Cryptologic Technician Operator/Analyst Relationship Specialty Start Date End Date Preston Haney MD [address] [place] [address] PCP - General Internal Medicine 11/08/16 Elisabeth Hoff APRN.[employer] [address] [place] [address] Switchboard Wirer Internal Medicine 06/18/24 Byron Sutton APRN.SUPERVISOR [employer] [address] [place] [address] Switchboard Wirer Internal Medicine 06/18/24 Cryptologic Technician Operator/Analyst Relationship Specialty Start Date End Date Preston Hanye MD [address] [place] [address] PCP - General Internal Medicine 11/08/16 Elisabeth Hoff GEOTECHNICAL ENGINEER.[employer] [address] [place] [address] Switchboard Wirer Internal Medicine 06/18/24 Byron Sutton APRN.SUPERVISOR [employer] [address] [place] [address] Switchboard Wirer Internal Medicine 06/18/24 Cryptologic Technician Operator/Analyst Relationship Specialty Start Date End Date Preston Haney MD [address] [place] [address] PCP - General Internal Medicine 11/08/16 Elisabeth Hoff, GEOTECHNICAL ENGINEER.[employer] [address] [place] [address] Switchboard Wirer Internal Medicine 06/18/24 Byron Sutton GEOTECHNICAL ENGINEER.SUPERVISOR [employer] [address] [place] [address] [facility] Internal Medicine 06/18/24 Cryptologic Technician Operator/Analyst Relationship Specialty Start Date End Date Preston Haney MD [address] [place] [address] PCP - General Internal Medicine 11/08/16 Elisabeth Hoff, GEOTECHNICAL ENGINEER.[employer] [address] [place] [address] Switchboard Wirer Internal Medicine 06/18/24 Byron Sutton, GEOTECHNICAL ENGINEER.SUPERVISOR [employer] [address] [place] [address] [facility] Internal Medicine 06/18/24 Cryptologic Technician Operator/Analyst Relationship Specialty Start Date End Date Preston Haney MD [address] [place] [address] PCP - General Internal Medicine 11/08/16 Elisabeth Hoff, GEOTECHNICAL ENGINEER.[employer] [address] [place] [address] Switchboard Wirer Internal Medicine 06/18/24 Byron Sutton GEOTECHNICAL ENGINEER.SUPERVISOR [employer]ING [address] [facility] [place] [address] [facility] Internal Medicine 06/18/24 Cryptologic Technician Operator/Analyst Relationship Specialty Start Date End Date Preston Haney MD [address] [facility] [place] [address] PCP - General Internal Medicine 11/08/16 Elisabeth Hoff, GEOTECHNICAL ENGINEER.[employer] [address] [facility] [place] [address] [facility] Internal Medicine 06/18/24 Byron Sutton GEOTECHNICAL ENGINEER.SUPERVISOR [employer] [address] [place] [address] [facility] Internal Medicine 06/18/24 Cryptologic Technician Operator/Analyst Relationship Specialty Start Date End Date Preston Haney MD [address] [facility] [place] [address] PCP - General Internal Medicine 11/08/16 Elisabeth Hoff, GEOTECHNICAL ENGINEER.[employer] [address] [facility] [place] [address] [facility] Internal Medicine 06/18/24 Byron Sutton GEOTECHNICAL ENGINEER.SUPERVISOR [employer] [address] [place] [address] [facility] Internal Medicine 06/18/24 Cryptologic Technician Operator/Analyst Relationship Specialty Start Date End Date Preston Haney MD [address] [place] [address] PCP - General Internal Medicine 11/08/16 Elisabeth Hoff, GEOTECHNICAL ENGINEER.T[employer]ING P[employer] [address] [place] [address] Switchboard Wirer Internal Medicine 06/18/24 Byron Sutton APRN.SUPERVISOR [employer] [address] [place] [address] Switchboard Wirer Internal Medicine 06/18/24 Cryptologic Technician Operator/Analyst Relationship Specialty Start Date End Date Preston Haney MD [address] [place] [address] PCP - General Internal Medicine 11/08/16 Elisabeth Hoff, GEOTECHNICAL ENGINEER.T[employer] [address] [place] [address] Switchboard Wirer Internal Medicine 06/18/24 Byron Sutton APRN.SUPERVISOR [employer] [address] [place] [address] Switchboard Wirer Internal Medicine 06/18/24 Cryptologic Technician Operator/Analyst Relationship Specialty Start Date End Date Preston Haney MD [address] [place] [address] PCP - General Internal Medicine 11/08/16 Elisabeth Hoff, GEOTECHNICAL ENGINEER.T[employer] P[employer] [address] [place] [address] Switchboard Wirer Internal Medicine 06/18/24 Byron Sutton APRN.SUPERVISOR [employer] [address] [place] [address] Switchboard Wirer Internal Medicine 06/18/24 Cryptologic Technician Operator/Analyst Relationship Specialty Start Date End Date Preston Haney MD [address] [place] [address] PCP - General Internal Medicine 11/08/16 Elisabeth Hoff, GEOTECHNICAL ENGINEER.T[employer]ING P[employer] [address] [place] [address] Switchboard Wirer Internal Medicine 06/18/24 Byron Sutton APRN.SUPERVISOR [employer] [address] [facility] [place] [address] Switchboard Wirer Internal Medicine 10/02/24 Cryptologic Technician Operator/Analyst Relationship Specialty Start Date End Date Preston Haney MD [address] [place] [address] PCP - General Internal Medicine 11/08/16 Elisabeth Hoff, GEOTECHNICAL ENGINEER.TOWING PIL[employer] [address] [place] [address] Switchboard Wirer Internal Medicine 06/18/24 Byron Sutton APRN.SUPERVISOR [employer] [address] [place] [address] Switchboard Wirer Internal Medicine 10/02/24 Cryptologic Technician Operator/Analyst Relationship Specialty Start Date End Date Preston Haney MD [address] [place] [address] PCP - General Internal Medicine 11/08/16 Elisabeth Hoff, GEOTECHNICAL ENGINEER.TOWING PILOT [address] [facility] [place] [address] Switchboard Wirer Internal Medicine 06/18/24 Byron Sutton GEOTECHNICAL ENGINEER.SUPERVISOR [employer]ING [address] [place] [address] [facility] Internal Medicine 10/02/24 Cryptologic Technician Operator/Analyst Relationship Specialty Start Date End Date Preston Haney MD [address] [place] [address] PCP - General Internal Medicine 11/08/16 Elisabeth Hoff, GEOTECHNICAL ENGINEER.T[employer]ING P[employer] [address] [place] [address] [facility] Internal Medicine 06/18/24 Byron Sutton GEOTECHNICAL ENGINEER.SUPERVISOR [employer] [address] [place] [address] [facility] Internal Medicine 10/02/24 Cryptologic Technician Operator/Analyst Relationship Specialty Start Date End Date Preston Haney MD [address] [place] [address] PCP - General Internal Medicine 11/08/16 Elisabeth Hoff, GEOTECHNICAL ENGINEER.T[employer]ING P[employer] [address] [place] [address] [facility] Internal Medicine 06/18/24 Byron Sutton, GEOTECHNICAL ENGINEER.SUPERVISOR [employer]ING [address] [place] [address] [facility] Internal Medicine 10/02/24 Samuel Curiel [facility] [place] [address] Ophthalmology 11/26/24 Cryptologic Technician Operator/Analyst Relationship Specialty Start Date End Date Preston Haney MD [address] [place] [address] PCP - General Internal Medicine 11/08/16 Elisabeth Hoff, GEOTECHNICAL ENGINEER.T[employer]ING P[employer] [address] [place] [address] Switchboard Wirer Internal Medicine 06/18/24 11/27/24 Byron Sutton, GEOTECHNICAL ENGINEER.SUPERVISOR [employer]ADING [address] [place] [address] Switchboard Wirer Internal Medicine 10/02/24 Samuel Curiel [address] [facility] [place] [address] Ophthalmology 11/26/24 Elisabeth Hoff, GEOTECHNICAL ENGINEER.T[employer] P[employer] [address] [place] [address] Switchboard Wirer Internal Medicine 11/28/24 Cryptologic Technician Operator/Analyst Relationship Specialty Start Date End Date Preston Haney MD [address] [place] [address] PCP - General Internal Medicine 11/08/16 Elisabeth Hoff, GEOTECHNICAL ENGINEER.[employer] [address] [place] [address] Switchboard Wirer Internal Medicine 06/18/24 11/27/24 Byron Sutton, GEOTECHNICAL ENGINEER.SUPERVISOR [employer] [address] [place] [address] Switchboard Wirer Internal Medicine 10/02/24 Team Status: Active Member Role/Relationship Status Dates Dr. Preston Haney MD Primary Care Provider Active Team Status: Inactive Member Role/Relationship Status Dates Dr. Hubert Pereira MD Attending Provider Active S tart: November 14, 2024 End: November 14, 2024 Dr. Preston Haney MD Primary Care Provider Active Start: November 14, 2024 End: November 14, 2024 Dr. Preston Haney MD Referring Provider Active Start: November 14, 2024 End: November 14, 2024 Team Status: Inactive Member Role/Relationship Status Dates Dr. Preston Haney MD Primary Care Provider Active Start: January 03, 2025 End: January 03, 2025 Dr. Hubert Peerira MD Attending Provider Active S tart: January 03, 2025 End: January 03, 2025 Dr. Hubert Pereira MD Referring Provider Active S tart: January 03, 2025 End: January 03, 2025 Team Status: Active Member Role/Relationship Status Dates Dr. Preston Haney MD Primary Care Provider Active Start: January 03, 2025 Dr. Hubert Pereira MD Attending Provider Active S tart: January 03, 2025 Dr. Hubert Pereira MD Referring Provider Active S tart: January 03, 2025 Dr. Hubert Pereira MD Other Provider Active Start : January 03, 2025 Cryptologic Technician Operator/Analyst Relationship Specialty Start Date End Date Preston Haney MD [address] [place] [address] PCP - General Internal Medicine 11/08/16 Byron Sutton GEOTECHNICAL ENGINEER.SUPERVISOR [employer] [address] [place] [address] Switchboard Wirer Internal Medicine 10/02/24 Samuel Curiel [address] [place] [address] Ophthalmology 11/26/24 Elisabeth Hoff APRN.[employer] [address] [facility] [place] [address] Switchboard Wirer Internal Medicine 11/28/24 Cryptologic Technician Operator/Analyst Relationship Specialty Start Date End Date Preston Haney MD [address] [place] [address] PCP - General Internal Medicine 11/08/16 Byron Sutton GEOTECHNICAL ENGINEER.SUPERVISOR [employer] LOADING [address] [facility] [place] [address] Switchboard Wirer Internal Medicine 10/02/24 Samuel Curiel [address] [place] [address] Ophthalmology 11/26/24 Elisabeth Hoff, GEOTECHNICAL ENGINEER.TOWING P[employer]OT [address] [facility] [place] [address] [facility] Internal Medicine 11/28/24 Cryptologic Technician Operator/Analyst Relationship Specialty Start Date End Date Preston Haney MD [address] [place] [address] PCP - General Internal Medicine 11/08/16 Byron Sutton, GEOTECHNICAL ENGINEER.SUPERVISOR [employer] [address] [place] [address] Switchboard Wirer Internal Medicine 10/02/24 Samuel Curiel [address] [place], [place] [address] Ophthalmology 11/26/24 Elisabeth Hoff, GEOTECHNICAL ENGINEER.T[employer]ING P[employer] [address] [place] [address] [facility] Internal Medicine 11/28/24 Goals (unrecognized section and content) Goals may be documented in a n alternate sectionGoals may be documented in an alternate sectionGoals may be documented in an alternate sectionGoals may be documented in an alternate section INFORMATION SOURCE (unrecogn ized section and content) DATE CREATED AUTHOR 06/12/2022 [facility] DATE CREATED AUTHOR 'S ORGANIZ ATION 01/17/2025 [facility] DATE CREATED AUTHOR 'S ORGANIZ ATION 01/20/2025 [facility] FOR RECORDS PERTAINING TO PATIENTS WHO ARE [...] BE BASED ON THE PRIMARY CLINICAL RECORDS. [employer] [facility]. provides no warranty or guarantee of the accuracy or completeness of information in this document.
--- OUTSIDE RECORDS SUMMARY | 2025-01-22 07:07 | XMS RPT_ITS | CCD ---
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 Preston Haney Referring Provider John DOOR HANGER, DOOR HANGER-C Janeth Mott Attending Provider Preston Haney MD Primary Care Provider Hoff TRAM DRIVER.PORTABLE TRACK CREW CHIEF, Elisabeth Unavailable Herman TRAM DRIVER.MUD GRINDER, Byron Unavailable Herman TRAM DRIVER.MUD GRINDER, Byron Unavailable Herman TRAM DRIVER.MUD GRINDER, Byron Unavailable Samuel Curiel Unavailable Hoff TRAM DRIVER.PORTABLE TRACK CREW CHIEF, Elisabeth Unavailable Hoff TRAM DRIVER.PORTABLE TRACK CREW CHIEF, Elisabeth Unavailable Kelli MEEKS, Dr. Gaspar Attending Provider Debora MEEKS, Dr. Preston Daigle Primary Care Provider [phone] Debora MEEKS, Dr. Preston Daigle Referring Provider Kelli MEEKS, Dr. Gaspar Referring Provider Kelli MEEKS, Dr. Gaspar Other Provider Kelli, Oriska Attending Unavailable Talampas, Preston D Referring Unavailable Talampas, Preston D Primary Care Unavailable Kelli, Oriska Referring Unavailable Talampas, Preston D Primary Care Unavailable Kelli, Oriska Attending Unavailable Kelli, Hubert Referring Unavailable Talampas, Preston D Primary Care Unavailable Kelli, Oriska Attending Unavailable Vellanki, Jessica Referring Unavailable Talampas, [...] Attending Unavailable Friend, Gavino Attending Unavailable Kelli, Oriska Referring Unavailable Kelli, Oriska Consulting Unavailable Talampas, Preston D Primary Care [...] (1 source) Alendronate Drug Allergy 6 Intolerance [facility] Cetirizine (1 source) Cetirizine Drug Allergy 6 Intolerance [facility] Niacin (1 source) Niacin Drug Allergy 6 Intolerance [facility] NITROFURANTOIN, MACROCRYSTALS / Nitrofurantoin, Monohydrate (1 source) NITROFURANTOIN, MACROCRYSTALS / Nitrofurantoin, Monohydrate Drug Allergy 1 Intolerance [facility] Work Phone: [phone] NSAIDs (1 source) celecoxib Drug Allergy 6 Rash [facility] Work Phone: Opioid Agonists (1 source) Codeine Drug Allergy 6 Intolerance [facility] Penicillins (antibiotic) (1 source) Penicillins Drug Allergy 6 Hives [facility] Pollen (1 source) Grass pollen Substance Allergy 8 [facility] rofecoxib (1 source) rofecoxib Drug Allergy 6 Intolerance [facility] Sulfonamides (antibiotic) (1 source) Sulfonamides (Antibiotic) Drug Allergy 6 Intolerance [facility] (20 sources) Alendronate; Translations: [ALENDRONATE SODIUM] Drug Allergy 6 Intolerance [facility] (20 sources) celecoxib; Translations: [CELECOXIB] Drug Allergy 6 [facility] Work Phone: (20 sources) Cetirizine; Translations: [CETIRIZINE HCL] Drug Allergy 6 Intolerance [facility] (20 sources) Codeine; Translations: [CODEINE] Drug Allergy 6 Intolerance [facility] (20 sources) Grass pollen; Translations: [GRASS POLLEN] Propensity to adverse reactions [address] [place] [address] Work Phone: (20 sources) Niacin; Translations: [NIACIN] Drug Allergy 6 [facility] (20 sources) NITROFURANTOIN, MACROCRYSTALS / Nitrofurantoin, Monohydrate; Translations: [NITROFURANTOIN MONOHYD/M-CRYST] Drug Allergy 1 [facility] (17 sources) Penicillins; Translations: [PENICILLINS] Propensity to adverse reactions 6 [facility] Work Phone: (20 sources) rofecoxib; Translations: [ROFECOXIB] Drug Allergy 6 [facility] (20 sources) Sulfonamides (Antibiotic); Translations: [SULFA (SULFONAMIDE ANTIBIOTICS)] Drug Intolerance 6 Intolerance [facility] (4 sources) Cetirizine Drug Allergy 1 [facility] (20 sources) Penicillins Propensity to adverse reactions 6 [facility] Work Phone: (3 sources) Penicillins Allergy to substance 1 [facility] (3 sources) Sulfonamides (Antibiotic) Propensity to adverse reactions 1 [facility] Comment on above: Stomach pain (20 sources) Sucralfate; Translations: [SUCRALFATE] Drug Allergy 5 [facility] Work Phone: (9 sources) Penicillins Propensity to adverse reactions 6 [facility] (1 source) Nitrofurantoin Drug Allergy 5 Other [facility] Comment on above: Stomach pain (1 source) Alendronate Drug Allergy 5 [facility] (1 source) celecoxib Drug Allergy 5 [facility] (1 source) Cetirizine Drug Allergy 5 [facility] (1 source) Codeine Drug Allergy 5 [facility] (1 source) Niacin Drug Allergy 5 [facility] (1 source) Nitrofurantoin Drug Allergy 5 [facility] (1 source) Penicillins Drug allergy (disorder) 5 [facility] (1 source) rofecoxib Drug Allergy 5 [facility] (1 source) Sucralfate Drug Allergy 5 [facility] (1 source) Sulfonamides (Antibiotic) Drug allergy (disorder) 5 [facility] Medications Current Medications Medication Drug Class(es) [...] ate 0.25-0.4 % 1 Drop (FLURESS) calcitriol 0.05257 mg oral capsule (20 sources) Vitamin D3 Analog Start: 12-26-2019 End: 07-20-2024 take 1 capsule by mouth once daily calcitriol (ROCALTROL) 0.25 mcg capsule Take 1 capsule by mouth once daily. 90 capsule 3 07/20/2024 Active Comment on above: Take 1 capsule by [facility] once daily. calcium carbonate 1500 mg [...] Comment on above: Take 1 capsule by [facility] twice daily for 7 days. Take 1 capsule by [facility] twice daily for 5 days. cholecalciferol [...] capsule by mo uth daily at bedtime. [place]-3 Fatty Acids (Fish Oil Concentrate) 1,000 mg capsule (4 sources) Start: 12-26-2019 take 1 capsule by mouth once daily [place]-3 Fatty Acids (Fish Oil Concentrate) 1,000 mg capsule Active 1000 mg PO DAILY December 26, 2019 12:00am Start: 12-26-2019 take 1 capsule by mo uth once daily [place]-3 Fatty Acids (Fish Oil Concentrate) 1,000 mg capsule Active 1000 MG PO DAILY December 25, 2019 11:00pm Start: 12-26-2019 take 1 capsule by mo ut once daily [place]-3 Fatty Acids (Fish Oil Concentrate) 1,000 mg [...] Comment on above: Take 1 capsule by [facility] twice daily. 1/2 HR BEFORE MEAL. Take 1 capsule by [facility] two times a day. 1/2 HR BEFORE MEAL. polyethylene glycol 3350 72363 mg powder for oral solution (20 sources) [...] November 02, 2024 9:02am polyethylene glycol 3350 383236 mg / potassium chloride 2970 mg / sodium bicarbonate 6740 mg / sodium chloride 5860 mg / sodium sulfate 62399 mg powder for oral solution (1 source) [...] (1 source) Drug therapy finding; Translations: [Other terminal gauger supervisor (current) drug therapy] 10-11-2024 Episodic Other aftercare (1 source) Taking high risk medication; Translations: [Other terminal gauger supervisor (current) drug therapy] 11-26-2024 Episodic Other aftercare (2 sources) Other terminal gauger supervisor (current) drug therapy; Translations: [Long-term use of [...] CNOV Office Visit (INTMWS ) CONCEPCION DONALDSON ([id number]) 1940 F Date Time Provider Department 01/18/25 10:00 AM BYRON SUTTON INTMWS During your visit today, we recorded the following information about you: Pulse Respiration Blood pressure Weight 92/minute 16/minute 126/66 73 kg Byron Stuton APRN.MUD GRINDER 01/18/2025 10:47 AM Signed SUBJECTIVE Concepcion Donaldson [...] as 56%. Based on these findings, her hospice rn, Dr. 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 She also mentions ongoing [...] [Celecoxib] Rash Grass Pollen scratchy throat Nitrofurantoin [place]* Intolerance Stomach pain Penicillins Hives Sucralfate Rash Generalized red rash; itching back of neck. 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 Normal [facility] CNOVon 01-16-2025 CNOV Office Visit (RHWSTR ) CONCEPCION DONALDSON ([id number]) 1940 F Date Time Provider Department 01/16/25 10:30 AM LEXIS ROCA RHWSTR During your visit today, we recorded the following information about you: Pulse Respiration Blood pressure Weight 66/minute 17/minute 117/69 72.9 kg Lexis Roca PA-C 01/16/2025 1:24 PM Signed Rheumatology FOLLOW UP VISIT Date of Service: 01/16/2025 Patient: Concepcion Donaldson Medical Record: [id number] Primary Care Physician: Preston Haney MD Last Rheumatology visit: None at [facility] History of Present Illness Concepcion Donaldson is [...] significant for CAD; her father had an [place], her mother had CHF, and her brother also had an [place]. Pain Evaluation 08/19/2024 09/20/2024 11/19/2024 01/10/2025 01/16/2025 [...] Fever an (more content not included)... Normal [facility] Basic Metabolic Profile (BMP )on 01-14-2025 BUN/CRE 18.1 RATIO Normal 10-20 [facility] Comment on above: Performed By: #### L 500.4050, L100.0100 #### [facility] [address] [place], [address] Calcium [Mass/Vol] 9.5 mg/dL Normal 7.6-11.0 [facility] Comment on above: Performed By: #### L 500.4050, L100.0100 #### [facility] [address] [place], [address] Chloride [Moles/Vol] 93 mmol/L Low 98-108 [facility] Comment on above: Performed By: #### L 500.4050, L100.0100 #### [facility] [address] [place], [address] CO2 [Moles/Vol] 22.7 mmol/L Normal 21.0-32.0 [facility] Comment on above: Performed By: #### L 500.4050, L100.0100 #### [facility] [address] [place], [address] Creatinine [Mass/Vol] 0.91 mg/dL Normal 0.70-1.20 [facility] Comment on above: Performed By: #### L 500.4050, L100.0100 #### [facility] [address] [place], [address] GAP 12 Normal 5-15 [facility] Comment on above: Performed By: #### L 500.4050, L100.0100 #### [facility] [address] [place], [address] GFR/1.73 sq M.predicted among non-blacks MDRD (S/P/Bld) [Vol rate/Area] 62 mL/min/{1.73_m2} Normal >60 [facility] Comment on above: Result Comment: mL/m in/1.73m2 CKD-EPI Creatinine Equation (2020) Performed By: #### L 500.4050, L100.0100 #### [facility] [address] [place], [address] Glucose [Mass/Vol] 99 mg/dL Normal 70-99 [facility] Comment on above: Performed By: #### L 500.4050, L100.0100 #### [facility] [address] [place], [address] Potassium [Moles/Vol] 4.1 mmol/L Normal 3.3-5.1 [facility] Comment on above: Performed By: #### L 500.4050, L100.0100 #### [facility] [address] [place], [address] Sodium [Moles/Vol] 128 mmol/L Low 133-145 [facility] Comment on above: Performed By: #### L 500.4050, L100.0100 #### [facility] [address] [place], [address] Urea nitrogen [Mass/Vol] 17 mg/dL Normal 4-19 [facility] Comment on above: Performed By: #### L 500.4050, L100.0100 #### [facility] [address] [place], [address] CBC W/Diff, Automatedon 07-0 -2024 Absolute Lymph 0.94 X10 3/uL Normal 0.83-4.51 [facility] Comment on above: Performed By: #### L 500.4050, L100.0100 #### [facility] [address] [place], [address] Absolute Neut 3.0 X10 3/uL Normal 2.0-7.7 [facility] Comment on above: Performed By: #### L 500.4050, L100.0100 #### [facility] [address] [place], [address] Basophils/100 WBC (Bld) 0.8 % Normal 0-1 [facility] Comment on above: Performed By: #### L 500.4050, L100.0100 #### [facility] [address] [place], [address] Eosinophils/100 WBC (Bld) 4.9 % Normal 0-5 [facility] Comment on above: Performed By: #### L 500.4050, L100.0100 #### [facility] [address] [place], [address] Erythrocyte distribution width (RBC) [Ratio] 13.5 % Normal 11.6-14.6 [facility] Comment on above: Performed By: #### L 500.4050, L100.0100 #### [facility] [address] [place], [address] Hematocrit (Bld) [Volume fraction] 38.1 % Normal 37-47 [facility] Comment on above: Performed By: #### L 500.4050, L100.0100 #### [facility] [address] [place], [address] Hemoglobin (Bld) [Mass/Vol] 13.1 g/dL Normal 12.0-15.0 [facility] Comment on above: Performed By: #### L 500.4050, L100.0100 #### [facility] [address] [place], [address] IG% 1.000 High 0.0-0.9 [facility] Comment on above: Result Comment: IG% - Immature Granulocytes (promyelocytes, myelocytes and metamyelocytes) > 1% indicates that a LEFT SHIFT is Present. Performed By: #### L 500.4050, L100.0100 #### [facility] [address] [place], [address] Lymphocytes/100 WBC (Bld) 19.3 % Normal 19-41 [facility] Comment on above: Performed By: #### L 500.4050, L100.0100 #### [facility] [address] [place], [address] MCH (RBC) [Entitic mass] 29.2 pg Normal 27.0-32.0 [facility] Comment on above: Performed By: #### L 500.4050, L100.0100 #### [facility] [address] [place], [address] MCHC (RBC) [Mass/Vol] 34.4 g/dL Normal 32-36 [facility] Comment on above: Performed By: #### L 500.4050, L100.0100 #### [facility] [address] [place], [address] MCV (RBC) [Entitic vol] 85.0 fL Normal 81-99 [facility] Comment on above: Performed By: #### L 500.4050, L100.0100 #### [facility] [address] [place], [address] Monocytes/100 WBC (Bld) 12.7 % High 0-10 [facility] Comment on above: Performed By: #### L 500.4050, L100.0100 #### [facility] [address] [place], [address] Neutrophils/100 WBC (Bld) 61.3 % Normal 47-70 [facility] Comment on above: Performed By: #### L 500.4050, L100.0100 #### [facility] [address] [place], [address] Nucleated RBC (Bld) [#/Vol] 0 10*3/uL Normal 0-5 [facility] Comment on above: Performed By: #### L 500.4050, L100.0100 #### [facility] [address] [place], [address] Platelet mean volume (Bld) [Entitic vol] 10.7 fL Normal 6.2-12.0 [facility] Comment on above: Performed By: #### L 500.4050, L100.0100 #### [facility] [address] [place], [address] Platelets (Bld) [#/Vol] 166 10*3/uL Normal 150-450 [facility] Comment on above: Performed By: #### L 500.4050, L100.0100 #### [facility] [address] [place], [address] RBC (Bld) [#/Vol] 4.48 10*6/uL Normal 4.2-5.4 [facility] Comment on above: Performed By: #### L 500.4050, L100.0100 #### [facility] [address] [place], [address] RDW SD 42.2 fl Normal 35.1-43.9 [facility] Comment on above: Performed By: #### L 500.4050, L100.0100 #### [facility] [address] [place], [address] WBC (Bld) [#/Vol] 4.9 10*3/uL Normal 4.4-11.0 [facility] Comment on above: Performed By: #### L 500.4050, L100.0100 #### [facility] [address] [place], [address] Chest PA and Lateralon 01-14 Chest PA and Lateral [facility] Imaging Services [address] [place] [address] Chest PA and Lateral MR#: [id number] Acct: [id number] Name: CONCEPCION DONALDSON Rep #: [id number] : 1940 F 84 From: Ada Thorne PCP: Dr. Preston Haney MD Status: PRE [facility] [place] Study: Chest PA and Lateral Date of Exam: 01/14/25 Exam# [id number] Ordering Dr: Hubert Pereira MD PROCEDURE: CHEST [...] acromioclavicular joints are noted bilaterally. Reading Location: [facility] CC: Dr. Hubert Pereira MD; Dr. Preston Haney MD Fish Receiver: Signed Normal [facility] 25(OH)D3 [facility] 2024 25-hydroxyvitamin D3 [Mass/Vol] 78.2 ng/mL Normal 31.0-80.0 [facility] Comment on above: Order Comment: Speci men Type: BLOOD SPECIMEN Ordering Facility: [facility] Address: [address] [place] [address] Result Comment: Clas sification of 25 [place] Vitamin D status: Deficiency/Insufficiency: < or = 30 ng/ml. Sufficiency/Optimal Levels: 31-80 ng/mL Toxicity: > 100 ng/mL. Test performed by chemiluminescent immunoassay. Performed By: #### 5 1775-5, 72844-0, 04881-8, 99701-6, 60437-8, 57364-8, 72990-2, 73485-8 #### [facility] CLIA [id number] [address] [place] [address] [place] CBC panel Auto (Bld)on 01-09 Erythrocyte distribution width (RBC) [Ratio] 13.5 % Normal 11.5-15.0 [facility] Comment on above: Order Comment: Speci men Type: BLOOD SPECIMEN Ordering Facility: [facility] Address: [address] [place] [address] Performed By: #### 5 1775-5, 39433-0, 19925-4, 24695-1, 41367-5, 34468-9, 78422-2, 61459-3 #### [facility] CLIA [id number] [address] [place] [address] [place] Hematocrit (Bld) [Volume fraction] 41.8 % Normal 36.0-46.0 [facility] Comment on above: Order Comment: Speci men Type: BLOOD SPECIMEN Ordering Facility: [facility] Address: [address] [place] [address] Performed By: #### 5 1775-5, 05758-5, 94517-0, 53951-2, 95755-9, 58124-8, 00418-5, 75781-4 #### [facility] CLIA [id number] [address] [place], [place] [address] [place] Hemoglobin (Bld) [Mass/Vol] 14.4 g/dL Normal 11.5-15.5 [facility] Comment on above: Order Comment: Speci men Type: BLOOD SPECIMEN Ordering Facility: [facility] Address: [address] [place] [address] Performed By: #### 5 1775-5, 66589-9, 33268-0, 51952-5, 18610-4, 38020-2, 73586-8, 64140-8 #### [facility] CLIA [id number] [address] [place] [address] [place] MCH (RBC) [Entitic mass] 29.1 pg Normal 26.0-34.0 [facility] Comment on above: Order Comment: Speci men Type: BLOOD SPECIMEN Ordering Facility: [facility] Address: [address] [place] [address] Performed By: #### 5 1774-5, 49977-6, 35658-7, 17109-3, 26116-2, 80169-6, 74124-5, 70935-1 #### [facility] CLIA [id number] [address] [place] [address] [place] MCHC (RBC) [Mass/Vol] 34.4 g/dL Normal 30.5-36.0 [facility] Comment on above: Order Comment: Speci men Type: BLOOD SPECIMEN Ordering Facility: [facility] Address: [address] [place] [address] Performed By: #### 5 1774-5, 41060-6, 62057-9, 30612-1, 62963-5, 53982-7, 02359-5, 11732-6 #### [facility] CLIA [id number] [address] [place] [address] [place] MCV (RBC) [Entitic vol] 84.6 fL Normal 80.0-100.0 [facility] Comment on above: Order Comment: Speci men Type: BLOOD SPECIMEN Ordering Facility: [facility] Address: [address] [place] [address] Performed By: #### 5 1775-5, 88079-1, 35433-7, 83572-8, 98556-0, 29066-8, 99131-6, 70539-3 #### [facility] CLIA [id number] [address] [place], [place] [address] [place] Nucleated RBC (Bld) [#/Vol] 10*3/uL Normal <0.01 [facility] Comment on above: Order Comment: Speci men Type: BLOOD SPECIMEN Ordering Facility: [facility] Address: [address] [place] [address] Performed By: #### 5 1775-5, 41372-4, 05773-7, 66391-5, 41934-3, 67841-6, 33236-1, 10366-8 #### [facility] CLIA [id number] [address] [place] [address] [place] Platelet mean volume (Bld) [Entitic vol] 10.5 fL Normal 9.0-12.7 [facility] Comment on above: Order Comment: Speci men Type: BLOOD SPECIMEN Ordering Facility: [facility] Address: [address] [place] [address] Performed By: #### 5 1775-5, 82143-3, 38810-6, 84638-4, 67245-6, 78689-9, 85047-4, 52684-7 #### [facility] CLIA [id number] [address] [place] [address] [place] Platelets (Bld) [#/Vol] 176 10*3/uL Normal 150-400 [facility] Comment on above: Order Comment: Speci men Type: BLOOD SPECIMEN Ordering Facility: [facility] Address: [address] [place] [address] Performed By: #### 5 1775-5, 06658-1, 00220-3, 04146-6, 17950-7, 27632-9, 81582-9, 15766-1 #### [facility] CLIA [id number] [address] [place], [place] [address] [place] RBC (Bld) [#/Vol] 4.94 10*6/uL Normal 3.90-5.20 [facility] Comment on above: Order Comment: Speci men Type: BLOOD SPECIMEN Ordering Facility: [facility] Address: [address] [place] [address] Performed By: #### 5 1775-5, 87583-6, 33235-7, 33790-9, 19874-7, 60814-6, 35118-2, 34052-5 #### [facility] CLIA [id number] [address] [place] [address] [place] WBC (Bld) [#/Vol] 4.21 10*3/uL Normal 3.70-11.00 [facility] Comment on above: Order Comment: Speci men Type: BLOOD SPECIMEN Ordering Facility: [facility] Address: [address] [place] [address] Performed By: #### 5 1775-5, 35702-0, 61498-7, 42945-6, 65131-7, 64790-9, 18818-3, 89682-1 #### [facility] CLIA [id number] [address] [place] [address] [place] Comprehensive metabolic 2000 panelon 01-09-2025 Albumin [Mass/Vol] 4.7 g/dL Normal 3.9-4.9 [facility] Comment on above: Order Comment: Speci men Type: BLOOD SPECIMEN Ordering Facility: [facility] Address: [address] [place] [address] Performed By: #### 5 1775-5, 17558-6, 78714-6, 22785-6, 22888-8, 78592-5, 37802-1, 00414-2 #### [facility] CLIA [id number] [address] [place] [address] [place] ALP [Catalytic activity/Vol] 44 U/L Normal 34-123 [facility] Comment on above: Order Comment: Speci men Type: BLOOD SPECIMEN Ordering Facility: [facility] Address: [address] [place] [address] Performed By: #### 5 1775-5, 56586-4, 20961-7, 29446-5, 94828-7, 63571-3, 22514-9, 86183-3 #### [facility] CLIA [id number] [address] [place] [address] [place] ALT [Catalytic activity/Vol] 15 U/L Normal 7-38 [facility] Comment on above: Order Comment: Speci men Type: BLOOD SPECIMEN Ordering Facility: [facility] Address: [address] [place] [address] Performed By: #### 5 1775-5, 92563-8, 66909-2, 68759-2, 03562-6, 13065-0, 11267-6, 93713-5 #### [facility] CLIA [id number] [address] [place] [address] [place] Anion gap [Moles/Vol] 14 mmol/L Normal 8-15 [facility] Comment on above: Order Comment: Speci men Type: BLOOD SPECIMEN Ordering Facility: [facility] Address: [address] [place] [address] Performed By: #### 5 1775-5, 36568-0, 15838-9, 89546-3, 44405-1, 64208-2, 20047-1, 21063-0 #### [facility] CLIA [id number] [address] [place] [address] [place] AST [Catalytic activity/Vol] 25 U/L Normal 13-35 [facility] Comment on above: Order Comment: Speci men Type: BLOOD SPECIMEN Ordering Facility: [facility] Address: [address] [place] [address] Performed By: #### 5 1775-5, 93014-8, 25206-4, 82184-9, 31584-3, 17419-5, 57955-4, 21905-8 #### [facility] CLIA [id number] [address] [place], [place] [address] [place] Bilirubin [Mass/Vol] 0.5 mg/dL Normal 0.2-1.3 [facility] Comment on above: Order Comment: Speci men Type: BLOOD SPECIMEN Ordering Facility: [facility] Address: [address] [place] [address] Performed By: #### 5 1775-5, 17133-0, 29362-9, 04027-0, 52787-1, 32151-8, 23495-2, 18764-1 #### [facility] CLIA [id number] [address] [place] [address] [place] Calcium [Mass/Vol] 10.3 mg/dL High 8.5-10.2 [facility] Comment on above: Order Comment: Speci men Type: BLOOD SPECIMEN Ordering Facility: [facility] Address: [address] [place] [address] Performed By: #### 5 1775-5, 65426-9, 60965-6, 59257-4, 12153-9, 87699-3, 97294-9, 64522-3 #### [facility] CLIA [id number] [address] [place] [address] [place] Chloride [Moles/Vol] 94 mmol/L Low 98-107 [facility] Comment on above: Order Comment: Speci men Type: BLOOD SPECIMEN Ordering Facility: [facility] Address: [address] [place] [address] Performed By: #### 5 1775-5, 30436-1, 47997-6, 06758-4, 46225-8, 80850-3, 29648-3, 60304-4 #### [facility] CLIA [id number] [address] [place] [address] [place] CO2 [Moles/Vol] 25 mmol/L Normal 22-30 [facility] Comment on above: Order Comment: Speci men Type: BLOOD SPECIMEN Ordering Facility: [facility] Address: [address] [place] [address] Performed By: #### 5 1775-5, 69616-6, 44466-9, 10309-0, 44343-4, 30678-3, 44394-3, 40521-2 #### [facility] CLIA [id number] [address] [place] [address] [place] Creatinine [Mass/Vol] 0.83 mg/dL Normal 0.58-0.96 [facility] Comment on above: Order Comment: Speci men Type: BLOOD SPECIMEN Ordering Facility: [facility] Address: [address] [place] [address] Performed By: #### 5 1775-5, 10912-4, 42246-8, 88186-4, 61923-2, 45489-3, 90902-9, 37271-2 #### [facility] CLIA [id number] [address] [place] [address] [place] Creatinine and Glomerular filtration rate.predicted panel (S/P/Bld) 70 mL/min/1.73m??? Normal >=60 [facility] Comment on above: Order Comment: Speci teena Type: BLOOD SPECIMEN Ordering Facility: [facility] Address: [address] [place] [address] Result Comment: Sravanthi mated Glomerular Filtration Rate [...] actual GFR. Performed By: #### 5 1775-5, 86660-9, 24173-9, 87504-0, 69643-2, 07930-4, 44375-1, 82097-7 #### [facility] CLIA [id number] [address] [place] [address] [place] Glucose [Mass/Vol] 91 mg/dL Normal 74-99 [facility] Comment on above: Order Comment: Kristofer dickinson Type: BLOOD SPECIMEN Ordering Facility: [facility] Address: [address] [place] [address] Result Comment: The [place] Diabetes Association (ADA) provides guidance for cutoff [...] Standards of Medical Care in Diabetes 2016, [place] Diabetes Association. Diabetes Care. 2016.39(Suppl 1). Performed By: #### 5 1775-5, 40889-4, 63091-9, 01591-5, 92529-8, 61466-5, 43952-0, 09958-9 #### [facility] CLIA [id number] [address] [place] [address] [place] Potassium [Moles/Vol] 4.0 mmol/L Normal 3.7-5.1 [facility] Comment on above: Order Comment: Kristofer dickinson Type: BLOOD SPECIMEN Ordering Facility: [facility] Address: [address] [place] [address] Performed By: #### 5 1775-5, 20427-9, 52991-4, 17969-6, 02258-9, 16532-2, 51124-0, 45871-4 #### [facility] CLIA [id number] [address] [place] [address] [place] Protein [Mass/Vol] 7.4 g/dL Normal 6.3-8.0 [facility] Comment on above: Order Comment: Speci men Type: BLOOD SPECIMEN Ordering Facility: [facility] Address: [address] [place] [address] Performed By: #### 5 1775-5, 79352-9, 42752-2, 41644-4, 79333-4, 08638-8, 55172-0, 11043-5 #### [facility] CLIA [id number] [address] [place] [address] [place] Sodium [Moles/Vol] 133 mmol/L Low 136-144 [facility] Comment on above: Order Comment: Speci men Type: BLOOD SPECIMEN Ordering Facility: [facility] Address: [address] [place] [address] Performed By: #### 5 1775-5, 18139-5, 95806-3, 34239-3, 27410-2, 50864-3, 74291-3, 65955-7 #### [facility] CLIA [id number] [address] [place] [address] [place] Urea nitrogen [Mass/Vol] 15 mg/dL Normal 7-21 [facility] Comment on above: Order Comment: Speci men Type: BLOOD SPECIMEN Ordering Facility: [facility] Address: [address] [place] [address] Performed By: #### 5 1775-5, 72791-4, 57091-6, 11668-8, 06964-7, 47887-2, 65318-1, 61297-2 #### [facility] CLIA [id number] [address] [place] [address] [place] HbA1c (Bld)on 01-09-2025 Average glucose Estimated from glycated hemoglobin (Bld) [Mass/Vol] 108 mg/dL Normal [facility] Comment on above: Order Comment: Speci men Type: BLOOD SPECIMEN Ordering Facility: [facility] Address: [address] [place] [address] Result Comment: eAG: (Estimated average glucose) is a calculated value from HgbA1c and is computer help desk representative of the average blood glucose level in the last 2-3 month period. Performed By: #### 5 1775-5, 23946-8, 83798-1, 01706-3, 57747-8, 41692-4, 42657-5, 05883-9 #### [facility] CLIA [id number] [address] [place] [address] [place] HbA1c (Bld) [Mass fraction] 5.4 % Normal 4.3-5.6 [facility] Comment on above: Order Comment: Kristofer dickinson Type: BLOOD SPECIMEN Ordering Facility: [facility] Address: [address] [place] [address] Result Comment: [place] Diabetes Association guidelines indicate that patients with HgbA1c in the range 5.7-6.4% are at increased risk for development of diabetes, and intervention by lifestyle modification may be beneficial. HgbA1c greater or equal to 6.5% is considered diagnostic of diabetes. Performed By: #### 5 1775-5, 18138-6, 28048-9, 36861-5, 76030-1, 32435-0, 49743-9, 12022-9 #### [facility] CLIA [id number] [address] [place] [address] [place] Lipid 1996 panelon 5 Cholesterol [Mass/Vol] 172 mg/dL Normal <200 [facility] Comment on above: Order Comment: Kristofer dickinson Type: BLOOD SPECIMEN Ordering Facility: [facility] Address: [address] [place] [address] Result Comment: <200 mg/dL, Desirable 200-239 mg/dL, Borderline high >239 mg/dL, High Performed By: #### 5 1775-5, 94690-5, 26461-4, 06040-1, 40450-8, 96513-9, 14770-3, 70089-2 #### [facility] CLIA [id number] [address] [place], [place] [address] [place] Cholesterol in HDL [Mass/Vol] 66 mg/dL Normal >39 [facility] Comment on above: Order Comment: Speci men Type: BLOOD SPECIMEN Ordering Facility: [facility] Address: [address] [place] [address] Result Comment: 40-5 9 mg/dL, Acceptable >59 mg/dL, High: Negative risk factor for coronary heart disease <40 mg/dL, Low: Positive risk factor for coronary heart disease Performed By: #### 5 1775-5, 98552-5, 10080-0, 25996-3, 95151-4, 06217-2, 56224-1, 02942-1 #### [facility] CLIA [id number] [address] [place] [address] [place] Cholesterol in LDL [Mass/Vol] 74 mg/dL Normal <100 [facility] Comment on above: Order Comment: Jenniferifrah dickinson Type: BLOOD SPECIMEN Ordering Facility: [facility] Address: [address] [place] [address] Result Comment: <100 mg/dL, Optimal 100-129 mg/dL, Near optimal/above optimal 130-159 mg/dL, Borderline high 160-189 mg/dL, High >189 mg/dL, Very high Secondary prevention optimal LDL Cholesterol levels are recommended to be <70 mg/dL LDL cholesterol is calculated using the Guaman-NIH equation. Performed By: #### 5 1775-5, 94836-8, 81029-5, 85055-2, 47154-0, 20701-0, 68988-1, 89976-3 #### [facility] CLIA [id number] [address] [place] [address] [place] Cholesterol in LDL/Cholesterol in HDL [Mass ratio] 1.12 {ratio} Normal <2.54 [facility] Comment on above: Order Comment: Kristofer dickinson Type: BLOOD SPECIMEN Ordering Facility: [facility] Address: [address] [place] [address] Result Comment: Luis valencia: 1. National Cholesterol Education Program ATP III Guideline At-A-Glance Quick Desk Reference: National Heart, Lung, and Blood [place]. National Institutes of Health. 2001: NIH Publication No. 01-3305. 2. An International Atherosclerosis Society position paper: global recommendations for the management of dyslipidemia: executive summary, Atherosclerosis. 2014: 232(2):410-413. Performed By: #### 5 1775-5, 15548-5, 69716-7, 78253-1, 01753-9, 89298-9, 83508-5, 24525-6 #### [facility] CLIA [id number] [address] [place] [address] [place] Cholesterol in VLDL [Mass/Vol] 30 mg/dL High <30 [facility] Comment on above: Order Comment: Kristofer dickinson Type: BLOOD SPECIMEN Ordering Facility: [facility] Address: [address] [place] [address] Performed By: #### 5 1775-5, 70376-7, 41758-4, 73997-9, 80606-0, 77661-6, 70845-8, 79580-2 #### [facility] CLIA [id number] [address] [place] [address] [place] Cholesterol non HDL [Mass/Vol] 106 mg/dL Normal <130 [facility] Comment on above: Order Comment: Kristofer dickinson Type: BLOOD SPECIMEN Ordering Facility: [facility] Address: [address] [place] [address] Result Comment: <130 mg/dL, Optimal 130-159 mg/dL, Near optimal/above optimal 160-189 mg/dL, Borderline high 190-219 mg/dL, High >219 mg/dL, Very high Secondary prevention optimal non HDL Cholesterol levels are recommended to be <100 mg/dL Performed By: #### 5 1775-5, 21722-2, 49220-6, 23602-0, 93851-9, 10123-5, 52926-0, 92921-6 #### [facility] CLIA [id number] [address] [place], [place] [address] [place] Cholesterol.total/Cho lesterol in HDL [Mass ratio] 2.61 {ratio} Normal <5.10 [facility] Comment on above: Order Comment: Speci men Type: BLOOD SPECIMEN Ordering Facility: [facility] Address: [address] [place] [address] Performed By: #### 5 1775-5, 09041-9, 05456-0, 43906-2, 93201-8, 74169-4, 12296-9, 20293-4 #### [facility] CLIA [id number] [address] [place], [place] [address] [place] FASTING TIME 12 hrs Normal [facility] Comment on above: Order Comment: Speci men Type: BLOOD SPECIMEN Ordering Facility: [facility] Address: [address] [place] [address] Performed By: #### 5 1775-5, 62518-7, 61184-4, 65553-5, 22409-6, 92232-8, 50383-4, 74043-7 #### [facility] CLIA [id number] [address] [place] [address] [place] Triglyceride [Mass/Vol] 197 mg/dL High <150 [facility] Comment on above: Order Comment: Speci men Type: BLOOD SPECIMEN Ordering Facility: [facility] Address: [address] [place] [address] Result Comment: <150 mg/dL, Normal 150-199 mg/dL, Borderline high 200-499 mg/dL, High >499 mg/dL, Very high Performed By: #### 5 1775-5, 46006-8, 22169-6, 25549-9, 18126-2, 08364-8, 08105-4, 67231-3 #### [facility] CLIA [id number] [address] [place] [address] [place] Cardiovascular stress test r eportOrdered By: Hubert Pereira on 01-03-2025 Study report [facility] Cardi[facility] Services [address] [place] [address] MR#: [id number] Acct: [id number] Name: CONCEPCION DONALDSON Rep #: [id number] : 1940 84 From: uHbert Pereira MD Primary Care: Dr. Preston Haney MD [facility] tus: REG CLI Referring Dr: Hubert [...] ~ Date Dictated: 01/03/251515 Date Transcribed: 01/03/251515 Fish Receiver: CO Signed [facility] Work Phone: Stress Reporton 01-03-2025 Stress Report [facility] Cardiovascular Services [address] [place] [address] MR#: [id number] Acct: [id number] Name: CONCEPCION DONALDSON Rep #: [id number] : 1940 84 From: Hubert Pereira MD [...] MD Date Dictated: 01/03/251515 Date Transcribed: 01/03/251515 Fish Receiver: CO Signed Normal [facility] OCT MACULA CIRRUS OU (BOTH E YES)on 11-26-2024 [facility] Radiology Study observation (narrative) [facility] VISUAL FIELD 10-2 OU (BOTH E YES)on 11-26-2024 [facility] Radiology Study observation (narrative) [facility] CNOVon 11-19-2024 CNOV Office Visit (ORTHWS ) CONCEPCION DONALDSON ([id number]) 1940 F Date Time Provider Department 11/19/24 1:30 PM JV BROOKS During your visit today, we recorded the following information about you: Jv Brooks MD 12/11/2024 12:10 AM Signed Jv Brooks MD Department of Orthopaedics Orthopaedics [address] [facility] [address] Dept: [phone] Dept November 19, 2024 CHIEF COMPLAINT: New [...] Date PRAKASH PH PLACEMENT W/O ENDOSCOPY 09/03/[address] [facility] [address] Cabello CHOLECYSTECTOMY 1981 COLONOSCOPY FLX DX W/COLLJ SPEC WHEN PFRMD 05/17/2002 Colonoscopy COLONOSCOPY FLX DX W/COLLJ SPEC WHEN PFRMD 07/18/2016 Colonoscopy COLONOSCOPY W/BIOPSY SINGLE/MULTIPLE 07/14/2010 DILATION AND CURETTAGE DXAND/THER NONOBSTETRIC 03/21/2001 Dilation AND curettage attempte (more content not included)... Normal [facility] 12 Lead EKG performed by [facility] [place] [place] on 11-14-2024 12 Lead EKG performed by [facility] [address] [place] [address] 12 Lead EKG performed by [facility] [place] [place] 11/14/24 1131 MR#: [id number] Acct: [id number] Name: CONCEPCION DONALDSON Rep #: [id number] : 1940 83 From: Hubert Pereira MD Attending Dr: Dr. Hubert Pereira MD Status: DEP A MB Ordering Dr: Hubert Pereira MD Date: 11/14/24 Location: [facility] Sex: F C Admitted: BMS/12 Lead EKG performed by [facility] [place] [place] ECG Report Interpretation ---Sinus Rhythm -Left axis -anterior fascicular block. Voltage criteria for LVH (R(aVL) exceeds 1.26 mV) -Nonspecific QRS widening. -Old anterior infarct. ABNORMAL Electronically signed on 11/20/2024 at 08:18 by Hubert Pereira [employer] Version 8610 11/20/24 08 Date Hubert Pereira MD CC: Dr. Preston Haney MD Date Dictated: 11/14/241130 Date Transcribed: 11/14/241130 Fish Receiver: CO Signed Normal [facility] Cardiology Visit Reporton Cardiology Visit Report [facility] [address] [place] [address] OFFICE VISIT Date of Service: 11/14/24 MR#: [id number] Acct: [id number] Name: CONCEPCION DONALDSON Rep #: [id number] : 1940 Provider: Dr. Hubert Pereira MD Age/Sex: 83/F Location: [facility] [place] [place] Status: Signed HPI HPI History of [...] Source Monitor Intake Visit Reasons: RE-EST (SELF) Consulting Group Analyst Required: No Accompanied by: Daughter Is patient [...] of bunionectomy (more content not included)... Normal [facility] ECHOon 10-16-2024 Echocardiography Echocardiography Report: Transthoracic Echo [facility] Date of service: 10/16/2024 11:01:09 AM VESSEL CAPTAIN Ordering physician: BYRON SUTTON Indication: Shortness of Breath Technologist: Lucille Pineda [facility] Interpreting physician: Leonora Valentin MD PATIENT: Name: [...] * * * Final * * * [facility] : [id number] [id number] Normal [facility] CNOVon 10-11-2024 CNOV Office Visit (RHWSTR ) CONCEPCION DONALDSON ([id number]) 1940 F Date Time Provider Department 10/11/24 9:00 AM LEXIS ROCA WSTR During your visit today, we recorded the following information about you: Pulse Blood pressure Weight 70/minute 152/74 72.1 kg Lexis Roca PA-C 10/11/2024 6:02 PM Signed Rheumatology FOLLOW UP VISIT Date of Service: 10/11/2024 Patient: Concepcion Donaldson Medical Record: [id number] Primary Care Physician: Preston Haney MD Last Rheumatology visit: None at [facility] History of Present Illness Concepcion Donaldson is a 83 year old White female who presents on 10/11/2024 for an in-person visit for evaluation of established patient. She is currently taking hydroxychloroquine sulfate. Concepcion is both RF - 9 (09/20/2024) and CCP - 13.5 (09/20/2024) negative. Her most recent ANINE was negative (06/17/2015). Concepcion reports chronic hand [...] mouth RESPI (more content not included)... Normal [facility] Matthew 10-09-2024 CNPN Telephone (4CQ) CONCEPCION DONALDSON ([id number]) 1940 F Date Time Provider Department 10/09/24 LEXIS ROCA 4CQ During your visit today, we recorded the following information about you: Shi Nunn 10/09/2024 8:18 AM Signed Patient was schedule for CT Scan today at 1:20 PM however the dental technician saw it was ordered with [employer]. Those scans can only be done at [place], [place], or [facility]. I contacted patient to reschedule to one of those locations and patient is unwilling to travel that far. Please advise. Shi Nunn, Lexis Barrera PA-C 10/10/2024 8:19 AM Signed We can discuss options at our appointment tomorrow. WILLEM Espinoza Danelle, RN 10/10/2024 11:25 AM Signed Checked with [facility] and they are unable to do dual [...] red rash; itching back of neck. 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 Date Reviewed: 10/02/2024 Reviewed by: Byron Sutton APRN.MUD GRINDER - Fully Assessed Prescriptions as of 10/10/2024 [...] Encounter Status:Closed by GENESIS ZUÑIGA on 10/10/24 [facility] CNOVon 10-02-2024 CNOV Office Visit (INTMWS ) MENDOZACONCEPCION A ([id number]) 1940 F Date Time Provider Department 10/02/24 9:00 AM BYRON SUTTON INTMWS During your visit today, we recorded the following information about you: Pulse Respiration Blood pressure Weight 80/minute 16/minute 122/66 72.2 kg Byron Sutton APRN.MUD GRINDER 10/02/2024 9:54 AM Signed SUBJECTIVE Concepcion Donaldson [...] test in 2019. Sees Dr[address] Pereira with [facility] heart group as needed. Seeing rheumatology, recent [...] [Celecoxib] Rash Grass Pollen scratchy throat Nitrofurantoin [place]* Intolerance Stomach pain Penicillins Hives Sucralfate Rash Generalized red rash; itching back of neck. 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 ACTIVE PROBLEM LIST Spinal Stenosis of Lumbar [...] Normal [facility] URIC ACIDOrdered By: Eriac azar on 09-21-2024 Urate [Mass/Vol] 7.1 mg/dL High 2.5 - 6.6 mg/dL [facility] Urate [Mass/Vol]Ordered By: Erica Monreal on 09-21-2024 Interpretation and review of laboratory results Abnormal [facility] CBC W Auto Differential pane l (Bld)on 09-20-2024 Basophils (Bld) [#/Vol] 0.05 10*3/uL [facility] Basophils/100 WBC (Bld) 0.9 % [facility] Differential cell count method Nom (Bld) Auto [facility] Eosinophils (Bld) [#/Vol] 0.23 10*3/uL [facility] Eosinophils/100 WBC (Bld) 3.9 % [facility] Erythrocyte distribution width (RBC) [Ratio] 12.8 % 11.5 - 15.0 % [facility] Hematocrit (Bld) [Volume fraction] 43.5 % 36.0 - 46.0 % [facility] Hemoglobin (Bld) [Mass/Vol] 14.9 g/dL 11.5 - 15.5 g/dL [facility] Immature granulocytes (Bld) [#/Vol] 0.03 10*3/uL [facility] Immature granulocytes/100 WBC (Bld) 0.5 % [facility] Interpretation and review of laboratory results Abnormal [facility] Lymphocytes (Bld) [#/Vol] 0.92 10*3/uL Low [facility] Lymphocytes/100 WBC (Bld) 15.8 % [facility] MCH (RBC) [Entitic mass] 29.1 pg 26.0 - 34.0 pg [facility] MCHC (RBC) [Mass/Vol] 34.3 g/dL 30.5 - 36.0 g/dL [facility] MCV (RBC) [Entitic vol] 85 fL 80.0 - 100.0 fL [facility] Monocytes (Bld) [#/Vol] 0.84 10*3/uL [facility] Monocytes/100 WBC (Bld) 14.4 % [facility] Neutrophils (Bld) [#/Vol] 3.77 10*3/uL [facility] Neutrophils/100 WBC (Bld) 64.5 % [facility] Nucleated RBC (Bld) [#/Vol] NINF [facility] Nucleated RBC/100 WBC (Bld) [Ratio] 0 % /100 WBC [facility] Platelet mean volume (Bld) [Entitic vol] 10.6 fL 9.0 - 12.7 fL [facility] Platelets (Bld) [#/Vol] 168 10*3/uL [facility] RBC (Bld) [#/Vol] 5.12 10*6/uL 3.90 - 5.2 0 m/uL [facility] WBC (Bld) [#/Vol] 5.84 10*3/uL [facility] Basophils (Bld) [#/Vol] 0.05 10*3/uL Normal <0.11 [facility] Comment on above: Order Comment: Speci men Type: BLOOD SPECIMEN Ordering Facility: [facility] Address: [address] [place] [address] Performed By: #### 5 1775-5, 31432-7, 33746-7, 79149-2, 39008-1, 20670-2, 80546-2, 22292-0 #### [facility] CLIA [id number] [address] [place] [address] [place] Basophils/100 WBC (Bld) 0.9 % Normal [facility] Comment on above: Order Comment: Speci men Type: BLOOD SPECIMEN Ordering Facility: [facility] Address: [address] [place] [address] Performed By: #### 5 1775-5, 63764-7, 80497-6, 36938-9, 10489-1, 79731-9, 44559-5, 59743-7 #### [facility] CLIA [id number] [address] [place] [address] [place] Differential cell count method Nom (Bld) Auto Normal [facility] Comment on above: Order Comment: Speci men Type: BLOOD SPECIMEN Ordering Facility: [facility] Address: [address] [place] [address] Performed By: #### 5 1775-5, 36237-8, 72362-0, 26477-2, 22153-2, 80014-1, 41275-3, 16930-9 #### [facility] CLIA [id number] [address] [place] [address] [place] Eosinophils (Bld) [#/Vol] 0.23 10*3/uL Normal <0.46 [facility] Comment on above: Order Comment: Speci men Type: BLOOD SPECIMEN Ordering Facility: [facility] Address: [address] [place] [address] Performed By: #### 5 1775-5, 20737-3, 18451-5, 84441-8, 22709-7, 14458-6, 44979-4, 35222-2 #### [facility] CLIA [id number] [address] [place] [address] [place] Eosinophils/100 WBC (Bld) 3.9 % Normal [facility] Comment on above: Order Comment: Speci men Type: BLOOD SPECIMEN Ordering Facility: [facility] Address: [address] [place] [address] Performed By: #### 5 1775-5, 09205-5, 12107-3, 41955-6, 95244-2, 73172-2, 54753-8, 02778-5 #### [facility] CLIA [id number] [address] [place] [address] [place] Erythrocyte distribution width (RBC) [Ratio] 12.8 % Normal 11.5-15.0 [facility] Comment on above: Order Comment: Speci men Type: BLOOD SPECIMEN Ordering Facility: [facility] Address: [address] [place] [address] Performed By: #### 5 1775-5, 73812-4, 64460-3, 18242-2, 61449-4, 02195-8, 46793-9, 89330-8 #### [facility] CLIA [id number] [address] [place] [address] [place] Hematocrit (Bld) [Volume fraction] 43.5 % Normal 36.0-46.0 [facility] Comment on above: Order Comment: Speci men Type: BLOOD SPECIMEN Ordering Facility: [facility] Address: [address] [place] [address] Performed By: #### 5 1775-5, 20512-2, 40148-6, 73723-2, 55789-0, 68966-1, 32017-0, 93526-6 #### [facility] CLIA [id number] [address] [place] [address] [place] Hemoglobin (Bld) [Mass/Vol] 14.9 g/dL Normal 11.5-15.5 [facility] Comment on above: Order Comment: Speci men Type: BLOOD SPECIMEN Ordering Facility: [facility] Address: [address] [place] [address] Performed By: #### 5 1775-5, 17841-4, 52153-4, 63347-3, 85017-3, 98069-6, 03126-4, 66700-9 #### [facility] CLIA [id number] [address] [place] [address] [place] Immature granulocytes (Bld) [#/Vol] 0.03 10*3/uL Normal <0.10 [facility] Comment on above: Order Comment: Speci men Type: BLOOD SPECIMEN Ordering Facility: [facility] Address: [address] [place] [address] Performed By: #### 5 1775-5, 92633-8, 92056-1, 34519-0, 64226-8, 43447-6, 15403-7, 12796-4 #### [facility] CLIA [id number] [address] [place] [address] [place] Immature granulocytes/100 WBC (Bld) 0.5 % Normal [facility] Comment on above: Order Comment: Speci men Type: BLOOD SPECIMEN Ordering Facility: [facility] Address: [address] [place] [address] Performed By: #### 5 1775-5, 11037-0, 30020-4, 65976-3, 53379-2, 72925-6, 21526-9, 92771-2 #### [facility] CLIA [id number] [address] [place] [address] [place] Lymphocytes (Bld) [#/Vol] 0.92 10*3/uL Low 1.00-4.00 [facility] Comment on above: Order Comment: Speci men Type: BLOOD SPECIMEN Ordering Facility: [facility] Address: [address] [place] [address] Performed By: #### 5 1775-5, 29234-8, 95776-6, 14486-5, 39753-7, 08492-4, 96974-7, 60366-4 #### [facility] CLIA [id number] [address] [place] [address] [place] Lymphocytes/100 WBC (Bld) 15.8 % Normal [facility] Comment on above: Order Comment: Speci men Type: BLOOD SPECIMEN Ordering Facility: [facility] Address: [address] [place] [address] Performed By: #### 5 1775-5, 70736-8, 26227-4, 33704-1, 23330-3, 87407-3, 93163-0, 96871-2 #### [facility] CLIA [id number] [address] [place] [address] [place] MCH (RBC) [Entitic mass] 29.1 pg Normal 26.0-34.0 [facility] Comment on above: Order Comment: Speci men Type: BLOOD SPECIMEN Ordering Facility: [facility] Address: [address] [place] [address] Performed By: #### 5 1775-5, 96183-3, 12632-3, 95379-2, 45099-3, 03072-8, 56451-1, 63644-6 #### [facility] CLIA [id number] [address] [place] [address] [place] MCHC (RBC) [Mass/Vol] 34.3 g/dL Normal 30.5-36.0 [facility] Comment on above: Order Comment: Speci men Type: BLOOD SPECIMEN Ordering Facility: [facility] Address: [address] [place] [address] Performed By: #### 5 1775-5, 96217-3, 26622-0, 69493-6, 28186-7, 23370-2, 39723-2, 66397-7 #### [facility] CLIA [id number] [address] [place] [address] [place] MCV (RBC) [Entitic vol] 85.0 fL Normal 80.0-100.0 [facility] Comment on above: Order Comment: Speci men Type: BLOOD SPECIMEN Ordering Facility: [facility] Address: [address] [place] [address] Performed By: #### 5 1775-5, 01871-3, 55644-0, 23684-8, 18248-5, 16850-3, 26365-3, 00319-5 #### [facility] CLIA [id number] [address] [place] [address] [place] Monocytes (Bld) [#/Vol] 0.84 10*3/uL Normal <0.87 [facility] Comment on above: Order Comment: Speci men Type: BLOOD SPECIMEN Ordering Facility: [facility] Address: [address] [place] [address] Performed By: #### 5 1775-5, 73194-1, 04542-3, 02177-5, 79749-3, 93685-0, 93690-9, 01198-7 #### [facility] CLIA [id number] [address] [place] [address] [place] Monocytes/100 WBC (Bld) 14.4 % Normal [facility] Comment on above: Order Comment: Speci men Type: BLOOD SPECIMEN Ordering Facility: [facility] Address: [address] [place] [address] Performed By: #### 5 1775-5, 64368-1, 25534-7, 52462-2, 21103-3, 98213-9, 06313-6, 11364-9 #### [facility] CLIA [id number] [address] [place] [address] [place] Neutrophils (Bld) [#/Vol] 3.77 10*3/uL Normal 1.45-7.50 [facility] Comment on above: Order Comment: Speci men Type: BLOOD SPECIMEN Ordering Facility: [facility] Address: [address] [place] [address] Performed By: #### 5 5-5, 40643-0, 98855-8, 97550-0, 25386-9, 74738-6, 05888-1, 63240-0 #### [facility] CLIA [id number] [address] [place] [address] [place] Neutrophils/100 WBC (Bld) 64.5 % Normal [facility] Comment on above: Order Comment: Speci men Type: BLOOD SPECIMEN Ordering Facility: [facility] Address: [address] [place] [address] Performed By: #### 5 5-5, 05286-4, 96731-5, 58608-1, 39367-7, 35176-6, 90096-9, 10133-7 #### [facility] CLIA [id number] [address] [place] [address] [place] Nucleated RBC (Bld) [#/Vol] 10*3/uL Normal <0.01 [facility] Comment on above: Order Comment: Speci men Type: BLOOD SPECIMEN Ordering Facility: [facility] Address: [address] [place] [address] Performed By: #### 5 1775-5, 18372-4, 14496-5, 38025-2, 05379-5, 26551-3, 40745-9, 16440-0 #### [facility] CLIA [id number] [address] [place] [address] [place] Nucleated RBC/100 WBC (Bld) [Ratio] 0.0 /100 WBC Normal [facility] Comment on above: Order Comment: Speci men Type: BLOOD SPECIMEN Ordering Facility: [facility] Address: [address] [place] [address] Performed By: #### 5 1775-5, 44709-1, 03576-4, 87372-1, 85487-2, 93893-8, 53356-9, 64075-1 #### [facility] CLIA [id number] [address] [place] [address] [place] Platelet mean volume (Bld) [Entitic vol] 10.6 fL Normal 9.0-12.7 [facility] Comment on above: Order Comment: Speci men Type: BLOOD SPECIMEN Ordering Facility: [facility] Address: [address] [place] [address] Performed By: #### 5 1775-5, 70948-5, 28261-9, 82639-4, 69437-4, 30148-8, 15902-8, 71784-6 #### [facility] CLIA [id number] [address] [place] [address] [place] Platelets (Bld) [#/Vol] 168 10*3/uL Normal 150-400 [facility] Comment on above: Order Comment: Speci men Type: BLOOD SPECIMEN Ordering Facility: [facility] Address: [address] [place] [address] Performed By: #### 5 1775-5, 09442-3, 40248-2, 43968-9, 31204-9, 35041-5, 50622-3, 19577-3 #### [facility] CLIA [id number] [address] [place] [address] [place] RBC (Bld) [#/Vol] 5.12 10*6/uL Normal 3.90-5.20 [facility] Comment on above: Order Comment: Speci men Type: BLOOD SPECIMEN Ordering Facility: [facility] Address: [address] [place] [address] Performed By: #### 5 1775-5, 99434-3, 67151-9, 90102-8, 25237-1, 84903-7, 76051-1, 28516-6 #### [facility] CLIA [id number] [address] [place] [address] [place] WBC (Bld) [#/Vol] 5.84 10*3/uL Normal 3.70-11.00 [facility] Comment on above: Order Comment: Speci men Type: BLOOD SPECIMEN Ordering Facility: [facility] Address: [address] [place] [address] Performed By: #### 5 1775-5, 98418-4, 43927-8, 38673-1, 25916-9, 86340-4, 39897-0, 25705-4 #### [facility] CLIA [id number] [address] [place] [address] [place] CNOVon 09-20-2024 CNOV Office Visit (RHWSTR ) CONCEPCION DONALDSON ([id number]) 1940 F Date Time Provider Department 09/20/24 9:30 AM LEXIS ROCA RHWSTR During your visit today, we recorded the following information about you: Pulse Blood pressure Weight 71/minute 174/92 72.6 kg Lexis Roca PA-C 09/20/2024 10:51 AM Signed Rheumatology CONSULTATION Date of Service: 09/20/2024 Patient: Concepcion Donaldson Medical Record: [id number] Primary Care Physician: Preston Haney MD Last Rheumatology visit: None at [facility] Referring Provider: Elisabeth Hoff [address] [facility] [address] Concepcion Donaldson is here today at request of Elisabeth Hoff APRN.[facility] specifically for consultation of my opinion in regards to the chief complaint listed below. Correspondence will be shared today via the [employer] electronic health record or through regular mail, [...] use after diagnosed with gastric ulcer at [facility]. She thought the medication was starting to help, but she feels her hand pain has gotten worse since. Most of her pain today is in her hands. 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 The worst area of her pain is [...] 02/17/24 labs CBC- OK, low Ly%, High [place] %, High EO%. CMP- hyponatremia 133 Sed rate normal 9 CRP<2.9 ANNIE negative CCP negative Rheumatoid factor negative Hepatitis B surface antigen and surface antibody nonreactive hepatitis C antibody nonreactive 03/27/24 labs CBC normal CMP low alk phos 43, hyponatremia 130, hypochloremia 97 06/03/24 labs CBC RDW CV 15.0 elevated Ly% 17.0 (low) [place] % 12.8 (high) Immature Granulocytes 1% (high) - Left shift CMP - normal creatinine 0.8. 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 1 daughter Angela (here [...] Leg-Left F (more content not included)... Normal [facility] CNPNon 09-20-2024 CNPN Telephone (INTMWS) CONCEPCION DONALDSON ([id number]) 1940 F Date Time Provider Department 09/20/24 ELISABETH HOFF INTMWS During your visit today, we recorded the following information about you: Elisabeth Hoff APRN.[employer] 09/20/2024 11:31 AM Signed Please let her [...] red rash; itching back of neck. 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 Normal [facility] CRP SerPl-mCncon 09-20-2024 CRP [Mass/Vol] mg/L Normal <0.9 [facility] Comment on above: Order Comment: Speci men Type: BLOOD SPECIMEN Ordering Facility: [facility] Address: [address] [place] [address] Performed By: #### 5 1775-5, 32277-5, 88608-9, 33161-4, 04872-3, 84573-5, 18146-5, 82363-2 #### [facility] CLIA [id number] [address] [place] [address] [place] Centromere Ab IF Ql (S)on Centromere Ab Qn (S) <0.2 Normal <1.0 [facility] Comment on above: Order Comment: Speci teena Type: BLOOD SPECIMEN Ordering Facility: [facility] Address: [address] [place] [address] Result Comment: Anti -centromere antibody is used as in aid in diagnosis of systemic sclerosis. Clinical correlation is required. Test Methodology: Multiplex flow immunoassay. Performed By: #### 5 1775-5, 55670-1, 30978-0, 99445-4, 48762-0, 44146-9, 39129-8, 10966-9 #### [facility] CLIA [id number] [address] [place] [address] [place] CENTROMERE AB QUAL Negative Normal Negative [facility] Comment on above: Order Comment: Speci teena Type: BLOOD SPECIMEN Ordering Facility: [facility] Address: [address] [place] [address] Performed By: #### 5 1775-5, 46007-2, 11076-9, 92855-8, 25211-8, 57672-0, 52749-1, 07516-9 #### [facility] CLIA [id number] [address] [place] [address] [place] Chromatin Ab Qnon 09-20-2024 CHROMATIN AB QUAL Negative Normal Negative [facility] Comment on above: Order Comment: Speci men Type: BLOOD SPECIMEN Ordering Facility: [facility] Address: [address] [place] [address] Performed By: #### 5 1775-5, 58719-5, 65736-3, 68000-7, 28581-4, 90774-0, 71038-4, 93685-9 #### [facility] CLIA [id number] [address] [place] [address] [place] Chromatin Ab SerPl-aCncon Chromatin Ab Qn <0.2 Normal <1.0 [facility] Comment on above: Order Comment: Speci men Type: BLOOD SPECIMEN Ordering Facility: [facility] Address: [address] [place] [address] Result Comment: Test Methodology: Multiplex flow immunoassay. Performed By: #### 5 1775-5, 00653-0, 75927-5, 95792-6, 86390-5, 12853-2, 14400-8, 69862-6 #### [facility] CLIA [id number] [address] [place] [address] [place] Comprehensive metabolic 2000 panelOrdered By: Erica Monreal on 09-20-2024 Albumin [Mass/Vol] 4.5 g/dL 3.9 - 4.9 g/dL [facility] ALP [Catalytic activity/Vol] 51 U/L 34 - 123 U/L [facility] ALT [Catalytic activity/Vol] 12 U/L 7 - 38 U/L [facility] Anion gap [Moles/Vol] 11 mmol/L 8 - 15 mmol/L [facility] AST [Catalytic activity/Vol] 21 U/L 13 - 35 U/L [facility] Bilirubin [Mass/Vol] 0.4 mg/dL 0.2 - 1 .3 mg/dL [facility] Calcium [Mass/Vol] 10.1 mg/dL 8.5 - 10. 2 mg/dL [facility] Chloride [Moles/Vol] 92 mmol/L Low 98 - 10 7 mmol/L [facility] CO2 [Moles/Vol] 27 mmol/L 22 - 30 mmol/L [facility] Creatinine [Mass/Vol] 0.74 mg/dL 0.58 - 0.96 mg/dL [facility] GFR/1.73 sq M.predicted among non-blacks MDRD (S/P/Bld) [Vol rate/Area] 81 mL/min/{1.73_m2} - PINF [facility] Comment on above: Estimated Glomerular Filtration Rate [...] [Mass/Vol] 89 mg/dL 74 - 99 mg/dL [facility] Comment on above: The [place] Diabete s Association (ADA) provides guidance for [...] Standards of Medical Care in Diabetes 2016, [place] [employer]. Diabetes Care. 2016.39(Suppl 1). Interpretation and review of laboratory results Abnormal [facility] Potassium [Moles/Vol] 3.8 mmol/L 3.7 - 5.1 mmol/L [facility] Protein [Mass/Vol] 7.3 g/dL 6.3 - 8.0 g/dL Cl [facility] Sodium [Moles/Vol] 130 mmol/L Low 136 - 144 mmol/L [facility] Urea nitrogen [Mass/Vol] 14 mg/dL 7 - 21 mg/dL [facility] Comprehensive metabolic 2000 panelon 09-20-2024 Albumin [Mass/Vol] 4.5 g/dL Normal 3.9-4.9 [facility] Comment on above: Order Comment: Speci men Type: BLOOD SPECIMEN Ordering Facility: [facility] Address: [address] [place] [address] Performed By: #### 5 1775-5, 48453-1, 34379-4, 20743-4, 29667-8, 35264-7, 33835-8, 79309-6 #### [facility] CLIA [id number] [address] [place] [address] [place] ALP [Catalytic activity/Vol] 51 U/L Normal 34-123 [facility] Comment on above: Order Comment: Speci men Type: BLOOD SPECIMEN Ordering Facility: [facility] Address: [address] [place] [address] Performed By: #### 5 1775-5, 84294-5, 41688-9, 37885-2, 79831-5, 94946-4, 23987-7, 33937-6 #### [facility] CLIA [id number] [address] [place] [address] [place] ALT [Catalytic activity/Vol] 12 U/L Normal 7-38 [facility] Comment on above: Order Comment: Speci men Type: BLOOD SPECIMEN Ordering Facility: [facility] Address: [address] [place] [address] Performed By: #### 5 1775-5, 69555-4, 15351-1, 18485-0, 15988-5, 56774-9, 04072-9, 45889-8 #### [facility] CLIA [id number] [address] [place], [place] [address] [place] Anion gap [Moles/Vol] 11 mmol/L Normal 8-15 [facility] Comment on above: Order Comment: Speci men Type: BLOOD SPECIMEN Ordering Facility: [facility] Address: [address] [place] [address] Performed By: #### 5 1775-5, 42589-2, 43688-0, 44037-6, 93186-0, 27521-2, 87390-5, 61446-9 #### [facility] CLIA [id number] [address] [place] [address] [place] AST [Catalytic activity/Vol] 21 U/L Normal 13-35 [facility] Comment on above: Order Comment: Speci men Type: BLOOD SPECIMEN Ordering Facility: [facility] Address: [address] [place] [address] Performed By: #### 5 1775-5, 40930-7, 46532-7, 77013-8, 67747-9, 24299-5, 19718-3, 97543-4 #### [facility] CLIA [id number] [address] [place] [address] [place] Bilirubin [Mass/Vol] 0.4 mg/dL Normal 0.2-1.3 [facility] Comment on above: Order Comment: Speci men Type: BLOOD SPECIMEN Ordering Facility: [facility] Address: [address] [place] [address] Performed By: #### 5 1775-5, 67082-6, 11056-7, 73481-3, 65261-9, 52811-6, 43647-3, 85605-3 #### [facility] CLIA [id number] [address] [place] [address] [place] Calcium [Mass/Vol] 10.1 mg/dL Normal 8.5-10.2 [facility] Comment on above: Order Comment: Speci men Type: BLOOD SPECIMEN Ordering Facility: [facility] Address: [address] [place] [address] Performed By: #### 5 1775-5, 31540-7, 34202-2, 57569-8, 30666-8, 68228-5, 41485-7, 10346-7 #### [facility] CLIA [id number] [address] [place], [place] [address] [place] Chloride [Moles/Vol] 92 mmol/L Low 98-107 [facility] Comment on above: Order Comment: Speci men Type: BLOOD SPECIMEN Ordering Facility: [facility] Address: [address] [place] [address] Performed By: #### 5 1775-5, 91004-2, 00557-7, 80315-8, 21438-0, 11665-7, 62696-1, 52377-9 #### [facility] CLIA [id number] [address] [place] [address] [place] CO2 [Moles/Vol] 27 mmol/L Normal 22-30 [facility] Comment on above: Order Comment: Speci men Type: BLOOD SPECIMEN Ordering Facility: [facility] Address: [address] [place] [address] Performed By: #### 5 1775-5, 89094-1, 06265-5, 95917-3, 59119-3, 39330-5, 33974-4, 47027-9 #### [facility] CLIA [id number] [address] [place], [place] [address] [place] Creatinine [Mass/Vol] 0.74 mg/dL Normal 0.58-0.96 [facility] Comment on above: Order Comment: Speci men Type: BLOOD SPECIMEN Ordering Facility: [facility] Address: [address] [place] [address] Performed By: #### 5 1775-5, 34394-1, 24913-6, 80802-4, 52531-4, 61219-1, 75267-8, 55385-6 #### [facility] CLIA [id number] [address] [place] [address] [place] Creatinine and Glomerular filtration rate.predicted panel (S/P/Bld) 81 mL/min/1.73m??? Normal >=60 [facility] Comment on above: Order Comment: Kristofer dickinson Type: BLOOD SPECIMEN Ordering Facility: [facility] Address: [address] [place] [address] Result Comment: Sravanthi mated Glomerular Filtration Rate [...] actual GFR. Performed By: #### 5 1775-5, 72398-2, 61007-5, 76899-8, 29719-3, 10255-5, 98505-0, 66847-5 #### [facility] CLIA [id number] [address] [place] [address] [place] Glucose [Mass/Vol] 89 mg/dL Normal 74-99 [facility] Comment on above: Order Comment: Kristofer dickinson Type: BLOOD SPECIMEN Ordering Facility: [facility] Address: [address] [place] [address] Result Comment: The [place] Diabetes Association (ADA) provides guidance for cutoff [...] Standards of Medical Care in Diabetes 2016, [place] [employer]. Diabetes Care. 2016.39(Suppl 1). Performed By: #### 5 1775-5, 83521-4, 45719-0, 13230-8, 89980-8, 41698-9, 04169-4, 57121-4 #### [facility] CLIA [id number] [address] [place], [place] [address] [place] Potassium [Moles/Vol] 3.8 mmol/L Normal 3.7-5.1 [facility] Comment on above: Order Comment: Speci men Type: BLOOD SPECIMEN Ordering Facility: [facility] Address: [address] [place] [address] Performed By: #### 5 1775-5, 92437-4, 15979-6, 98477-8, 48694-5, 65664-5, 86517-4, 38754-4 #### [facility] CLIA [id number] [address] [place] [address] [place] Protein [Mass/Vol] 7.3 g/dL Normal 6.3-8.0 [facility] Comment on above: Order Comment: Speci men Type: BLOOD SPECIMEN Ordering Facility: [facility] Address: [address] [place] [address] Performed By: #### 5 1775-5, 42692-4, 76972-2, 33774-3, 43268-0, 11397-4, 07357-0, 46807-8 #### [facility] CLIA [id number] [address] [place] [address] [place] Sodium [Moles/Vol] 130 mmol/L Low 136-144 [facility] Comment on above: Order Comment: Speci men Type: BLOOD SPECIMEN Ordering Facility: [facility] Address: [address] [place] [address] Performed By: #### 5 1775-5, 07994-1, 64626-3, 87783-7, 90774-2, 59245-9, 64383-3, 77031-6 #### [facility] CLIA [id number] [address] [place], [place] [address] [place] Urea nitrogen [Mass/Vol] 14 mg/dL Normal 7-21 [facility] Comment on above: Order Comment: Speci men Type: BLOOD SPECIMEN Ordering Facility: [facility] Address: [address] [place] [address] Performed By: #### 5 1775-5, 44215-9, 84709-3, 53668-0, 62911-5, 33360-5, 56104-5, 09350-0 #### [facility] CLIA [id number] [address] [place] [address] [place] Cyclic citrullinated peptide IgG Qnon 09-20-2024 CCP ANTIBODY IGG QUALITATIVE Negative Normal Negative [facility] Comment on above: Order Comment: Speci men Type: BLOOD SPECIMEN Ordering Facility: [facility] Address: [address] [place] [address] Performed By: #### 5 1775-5, 09818-8, 48649-7, 12623-3, 77908-1, 18772-9, 73675-4, 51672-7 #### [facility] CLIA [id number] [address] [place] [address] [place] BRENDA Jo1 Ab Ser-aCncon 2024 Elida-1 extractable nuclear Ab Qn (S) <0.2 Normal <1.0 [facility] Comment on above: Order Comment: Speci men Type: BLOOD SPECIMEN Ordering Facility: [facility] Address: [address] [place] [address] Performed By: #### 5 1775-5, 79072-3, 45233-0, 62044-7, 74613-4, 14321-7, 08968-4, 73171-8 #### [facility] CLIA [id number] [address] [place] [address] [place] BRENDA PSYCHOLOGICAL OPERATIONS OFFICER Ab Ser-aCncon 2024 Ribonucleoprotein extractable nuclear Ab Qn (S) <0.2 Normal <1.0 [facility] Comment on above: Order Comment: Speci men Type: BLOOD SPECIMEN Ordering Facility: [facility] Address: [address] [place] [address] Performed By: #### 5 1775-5, 84055-6, 58459-1, 28113-8, 69227-9, 90435-4, 28486-2, 75848-0 #### [facility] CLIA [id number] [address] [place] [address] [place] BRENDA SM IgG Ser-aCncon 2024 Diaz extractable nuclear IgG Qn (S) <0.2 Normal <1.0 [facility] Comment on above: Order Comment: Speci men Type: BLOOD SPECIMEN Ordering Facility: [facility] Address: [address] [place] [address] Performed By: #### 5 1775-5, 55993-3, 52491-5, 09092-7, 64362-1, 01453-3, 98264-3, 84321-2 #### [facility] CLIA [id number] [address] [place] [address] [place] BRENDA SS-A Ab Ser-aCncon 09-20 Sjogrens syndrome-A extractable nuclear Ab Qn (S) <0.2 Normal <1.0 [facility] Comment on above: Order Comment: Speci men Type: BLOOD SPECIMEN Ordering Facility: [facility] Address: [address] [place] [address] Result Comment: Test Methodology: Multiplex flow immunoassay. Performed By: #### 5 1775-5, 27436-5, 78475-6, 12577-6, 64329-4, 86410-6, 74070-2, 17807-5 #### [facility] CLIA [id number] [address] [place] [address] [place] BRENDA SS-B Ab Ser-aCncon 09-20 Sjogrens syndrome-B extractable nuclear Ab Qn (S) <0.2 Normal <1.0 [facility] Comment on above: Order Comment: Speci men Type: BLOOD SPECIMEN Ordering Facility: [facility] Address: [address] [place] [address] Result Comment: Anti -SSB (anti-La) antibody is used as an aid in diagnosis of a variety of systemic autoimmune diseases, especially for Sjogren's syndrome and systemic lupus erythematosus. Clinical correlation is required. Test Methodology: Multiplex flow immunoassay. Performed By: #### 5 1775-5, 25732-9, 64967-5, 30407-0, 88344-8, 39159-4, 17563-8, 90695-4 #### [facility] CLIA [id number] [address] [place] [address] [place] ESR Westergren method (Bld) [Velocity]on 09-20-2024 ESR (Bld) [Velocity] 2 mm/h Normal 0-20 [facility] Comment on above: Order Comment: Speci men Type: BLOOD SPECIMEN Ordering Facility: [facility] Address: [address] [place] [address] Performed By: #### 5 1775-5, 39435-7, 70045-3, 02790-5, 84468-8, 79523-3, 14237-5, 69668-2 #### [facility] CLIA [id number] [address] [place] [address] [place] Elida-1 extractable nuclear Ab Qn (S)on 09-20-2024 ELIDA 1 ANTIBODY QUAL Negative Normal Negative [facility] Comment on above: Order Comment: Speci men Type: BLOOD SPECIMEN Ordering Facility: [facility] Address: [address] [place] [address] Result Comment: Anti -ELIDA-1 antibody is used as an aid in diagnosis of polymyositis and dermatomyositis especially with pulmonary involvement. A negative result cannot rule out polymyositis or dermatomyositis. Clinical correlation is required. Test Methodology: Multiplex flow immunoassay. Performed By: #### 5 1775-5, 73108-8, 65606-1, 27303-8, 00458-1, 76208-0, 92822-9, 47594-1 #### [facility] CLIA [id number] [address] [place] [address] [place] Rheumatoid fact SerPl-aCncon 09-20-2024 Rheumatoid factor Qn [IU]/mL Normal <16 [facility] Comment on above: Order Comment: Speci teena Type: BLOOD SPECIMEN Ordering Facility: [facility] Address: [address] [place] [address] Performed By: #### 5 1775-5, 51252-2, 27034-7, 90656-5, 39581-1, 60716-2, 83663-2, 56004-2 #### [facility] CLIA [id number] [address] [place] [address] [place] Ribonucleoprotein extractabl e nuclear Ab Qn (S)on 09-20-2024 ANTI-PSYCHOLOGICAL OPERATIONS OFFICER QUAL Negative Normal Negative [facility] Comment on above: Order Comment: Kristofer dickinson Type: BLOOD SPECIMEN Ordering Facility: [facility] Address: [address] [place] [address] Performed By: #### 5 1775-5, 75896-6, 33138-4, 72663-2, 33597-8, 99090-0, 16097-4, 25721-9 #### [facility] CLIA [id number] [address] [place] [address] [place] RIBOSOMAL PSYCHOLOGICAL OPERATIONS OFFICER QUAL Negative Normal Negative [facility] Comment on above: Order Comment: Kristofer dickinson Type: BLOOD SPECIMEN Ordering Facility: [facility] Address: [address] [place] [address] Result Comment: Anti -Ribosomal RNA (Ribosomal P) antibody is used as an aid in diagnosis of systemic autoimmune diseases especially systemic lupus erythematosus and mixed connective tissue disease. Cross-reactivity with Anti-diaz antibody is not uncommon. Clinical correlation is required. Test Methodology: Multiplex flow immunoassay. Performed By: #### 5 1775-5, 88596-8, 00831-3, 99560-1, 10884-5, 83746-1, 30187-1, 96063-6 #### [facility] CLIA [id number] [address] [place] [address] [place] SCL-70 extractable nuclear I gG IA Qn (S)on 09-20-2024 SCLERODERMA AB QUAL Negative Normal Negative [facility] Comment on above: Order Comment: Speci men Type: BLOOD SPECIMEN Ordering Facility: [facility] Address: [address] [place] [address] Performed By: #### 5 1775-5, 46354-6, 32947-6, 82488-9, 27587-9, 82313-4, 67407-3, 44933-9 #### [facility] CLIA [id number] [address] [place] [address] [place] SCLERODERMA IGG AB <0.2 Normal <1.0 [facility] Comment on above: Order Comment: Speci men Type: BLOOD SPECIMEN Ordering Facility: [facility] Address: [address] [place] [address] Result Comment: Scl- 70/Scleroderma antibody test is used as an aid in diagnosis of systemic sclerosis especially the diffuse cutaneous form. A negative result cannot rule out systemic sclerosis. The final interpretation should consider clinical picture and other test results such as anti-centromere antibody. Test Methodology: Multiplex flow immunoassay. Performed By: #### 5 1775-5, 87652-8, 17797-8, 74669-7, 89741-0, 80499-0, 22622-2, 50023-8 #### [facility] CLIA [id number] [address] [place] [address] [place] Sjogrens syndrome-A extracta ble nuclear Ab Qn (S)on 09-20-2024 SSA ANTIBODY QUAL Negative Normal Negative [facility] Comment on above: Order Comment: Speci men Type: BLOOD SPECIMEN Ordering Facility: [facility] Address: [address] [place] [address] Performed By: #### 5 1775-5, 47537-5, 41202-8, 61425-2, 54168-7, 13616-8, 26918-0, 39206-8 #### [facility] CLIA [id number] [address] [place] [address] [place] Sjogrens syndrome-B extracta ble nuclear Ab Qn (S)on 09-20-2024 SSB ANTIBODY QUAL Negative Normal Negative [facility] Comment on above: Order Comment: Speci men Type: BLOOD SPECIMEN Ordering Facility: [facility] Address: [address] [place] [address] Performed By: #### 5 1775-5, 89829-7, 05972-7, 59033-8, 14478-8, 61957-6, 30397-8, 16518-7 #### [facility] CLIA [id number] [address] [place] [address] [place] Diaz extractable nuclear Ig G Qn (S)on 09-20-2024 SM ANTIBODY QUAL Negative Normal Negative [facility] Comment on above: Order Comment: Speci men Type: BLOOD SPECIMEN Ordering Facility: [facility] Address: [address] [place] [address] Result Comment: Anti -Sm (Diaz) antibody is used as an aid in diagnosis of systemic lupus erythematosus and its presence is associated with renal disease. A negative result cannot rule out systemic lupus erythematosus. Clinical correlation is required. Test Methodology: Multiplex flow immunoassay. Performed By: #### 5 1775-5, 22577-1, 85927-3, 03547-6, 55566-9, 28546-8, 72852-6, 68770-6 #### [facility] CLIA [id number] [address] [place] [address] [place] Urate SerPl-mCncon Urate [Mass/Vol] 7.1 mg/dL High 2.5-6.6 [facility] Comment on above: Order Comment: Speci men Type: BLOOD SPECIMEN Ordering Facility: [facility] Address: [address] [place] [address] Performed By: #### 5 1775-5, 78900-5, 97587-4, 25621-7, 11091-6, 82187-6, 30614-2, 57232-5 #### [facility] HARPAL [id number] [address] [place] [address] [place] XR FOOT 3V [...] or dislocation is present. Mild tibiotalar and ebcr-cb-tslixhjt midfoot joint space narrowing with mild osteoarthropathy. [...] the right Lisfranc joint space 0.4 cm. Fish Receiver: PSCB Transcribe Date/Time: Sep 25 2024 7:18A Dictated by : MERLENE RODRIGUEZ MD This examination was interpreted and the report reviewed and electronically signed by: MERLENE RODRIGUEZ MD on Sep 25 2024 7:24AM EST [id number] Normal [facility] XR HAND 3V PA/LAT/OBL BILon 09-20-2024 [...] bony erosions. IMPRESSION: Degenerative changes as described. Fish Receiver: CANDY Transcribe Date/Time: Sep 24 2024 11:19A Dictated by : CLARE HUNTER MD This examination was interpreted and the report reviewed and electronically signed by: CLARE HUNTER MD on Sep 24 2024 11:20AM EST [id number] Normal [facility] cCP IgG SerPl-aCncon 025 Cyclic citrullinated peptide IgG Qn <15 Normal <20 [facility] Comment on above: Order Comment: Speci men Type: BLOOD SPECIMEN Ordering Facility: [facility] Address: [address] [place] [address] Performed By: #### 5 1775-5, 17098-9, 72469-3, 32465-6, 27865-6, 90513-0, 34960-3, 16956-9 #### [facility] CLIA [id number] [address] [place] [address] [place] Matthew 09-12-2024 CNPN Telephone (RHWSTR) CONCEPCION DONALDSON ([id number]) 1940 F Date Time Provider Department 09/12/24 [...] 02/17/24 labs CBC- OK, low Ly%, High [place] %, High EO%. CMP- hyponatremia 133 Sed rate normal 9 CRP<2.9 ANNIE negative CCP negative Rheumatoid factor negative Hepatitis B surface antigen and surface antibody nonreactive hepatitis C antibody nonreactive 03/27/24 labs CBC normal CMP low alk phos 43, hyponatremia 130, hypochloremia 97 06/03/24 labs CBC RDW CV 15.0 elevated Ly% 17.0 (low) [place] % 12.8 (high) Immature Granulocytes 1% (high) [...] red rash; itching back of neck. 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 Normal [facility] DBT Breast - bilateral scree jennifergon [...] Daniel Griffin M.D. Electronically signed on: 08/21/2024 Fish Receiver: RAGHU Transcribe Date/Time: Aug 21 2024 9:09A Dictated by: DANIEL GRIFFIN MD This examination was interpreted and the report reviewed and electronically signed by: DANIEL GRIFFIN MD on Aug 21 2024 4:07PM [facility] DIVISION OF RADIOLOGY * * *Final Report* * * DATE OF EXAM: Aug 21 2024 9:54AM [facility] 0582 - CESAR SCREENING W RIVAS / PROCEDURE REASON: Breast cancer screening by mammogram * * * * Physician Interpretation * * * * RESULT: [place] [address] #[id number] - CESAR SCREENING W RIVAS HISTORY: 83 [...] breast. DIVISION OF RADIOLOGY Provider, Shiva Brizuela [facility] - 08/21/2024 * * *Final Report* * * DATE OF EXAM: Aug 21 2024 9:54AM [facility] 0582 - CESAR SCREENING W RIVAS / PROCEDURE REASON: Breast cancer screening by mammogram * * * * Physician Interpretation * * * * RESULT: [facility] [address] [id number] #[id number] - [facility] SCREENING W RIVAS HISTORY: 83 year-old patient [...] Daniel Griffin M.D. Electronically signed on: 08/21/2024 Fish Receiver: RAGHU Transcribe Date/Time: Aug 21 2024 9:09A Dictated by: DANIEL GRIFFIN MD This examination was interpreted and the report reviewed and electronically signed by: DANIEL GRIFFIN MD on Aug 21 2024 4:07PM EST [facility] Radiology Study observation (narrative) [facility] DBT Breast - bilateral scree ningOrdered By: Ccf Provider on 08-21-2024 [facility] CESAR SCREENING W TOMOon 08-21 CESAR SCREENING W RIVAS * * *Final Report* * * DATE OF EXAM: Aug 21 2024 9:54AM [facility] 0582 - CESAR SCREENING W RIVAS / PROCEDURE REASON: Breast cancer screening by mammogram * * * * Physician Interpretation * * * * RESULT: [place] [address] #[id number] - CESAR SCREENING W RIVAS HISTORY: 83 [...] Daniel Griffin M.D. Electronically signed on: 08/21/2024 Fish Receiver: RAGHU Transcribe Date/Time: Aug 21 2024 9:09A Dictated by: DANIEL GRIFFIN MD This examination was interpreted and the report reviewed and electronically signed by: DANIEL GRIFFIN MD on Aug 21 2024 4:07PM EST [id number] Normal [facility] CNPNon 08-16-2024 CNPN Telephone (WSTR) CONCEPCION DONALDSON ([id number]) 1940 F Date Time Provider Department 08/16/[address] [facility] During your visit today, we recorded the following information about you: Genesis Zuñiga RN 08/16/2024 4:14 PM Signed ----- Message from Lexis Roca APRN.MUD GRINDER sent at 08/16/2024 3:40 PM EST ----- This patient was seeing Dr. Madrid at [facility]. Scheduled next week. Can we request records? Thanks Genesis Peterson RN 08/16/2024 4:16 PM Signed Jarek's office is closed on [phone] Ailin Everett MA 08/17/2024 9:58 AM Signed I called and spoke with scheduling desk at Dr. Madrid's office. They will fax records over. Labs were printed from [facility]. Ailin Everett MA 08/20/2024 8:06 AM Signed [...] red rash; itching back of neck. 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 Date Reviewed: 07/20/2024 Reviewed by: Ratna Newberry LPN - Fully Assessed Reason for Visit: Request Outside Medical Records [9941] Prescriptions as of 08/20/2024 - omeprazole (PRILOSEC) [...] Encounter Status:Closed by AILIN EVERETT on 08/20/24 [facility] CNPShanika 08-06-2024 CNPN Telephone (FAMPTW) CONCEPCION DONALDSON ([id number]) 1940 F Date Time Provider Department 08/06/24 [...] calling: self Call patient at: at home [phone] (home) [phone] (cell) Was an appointment scheduled: No Closing statement: Prior Authorization Calls: Thank you for calling [facility], your call will be returned within the next 24 hours or next business day. Kaci De La Rosa [facility] Yolie Collazo LPN 08/06/2024 4:41 PM Signed [...] red rash; itching back of neck. 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 Normal [facility] Gastroenterology Visit Repor ton 07-27-2024 Gastroenterology Visit Report [facility] Gastroenterology [address] [place] [address] OFFICE VISIT Date of Service: 07/27/24 MR#: [id number] Acct: [id number] Name: CONCEPCION DONALDSON Rep #: [id number] : 1940 Provider: Gavino Jay DO Age/Sex: 83/F Location: [facility] [place] [place] Status: Signed Intake Vital Signs 09/06/23 [...] you fallen in the past year?: No [facility] Medical History Wears dentures Wears hearing aid [...] and w (more content not included)... Normal [facility] CNOVon 07-20-2024 CNOV Office Visit (INTMWS ) CONCEPCION DONALSDON ([id number]) 1940 F Date Time Provider Department 07/20/24 [...] drug eruption. She was evaluated by a meteorology teacher, who diagnosed the rash as a drug [...] receiving treatment at a spine center in [place]. She reports that her symptoms are improving [...] OIL 1,0 (more content not included)... Normal [facility] MENDOZACONCEPCION Simeon ([id number]) 1940 F Date Time Provider Department 07/20/24 [...] so they can schedule. 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 25(OH)D3 [facility] 2024 25-hydroxyvitamin D3 [Mass/Vol] 69.7 ng/mL Normal 31.0-80.0 [facility] Comment on above: Order Comment: Speci men Type: BLOOD SPECIMEN Ordering Facility: [facility] Address: [address] [place] [address] [place] [address] Performed By: #### 5 6865-5, 42658-3, 57927-1, 82536-3, 89807-0, 55907-7, 01215-7, 90572-8 #### [facility] CLIA [id number] [address] [place] [address] [place] CBC W Auto Differential pane l (Bld)on 07-12-2024 Basophils (Bld) [#/Vol] 0.04 10*3/uL Normal <0.11 [facility] Comment on above: Order Comment: Speci men Type: BLOOD SPECIMEN Ordering Facility: [facility] Address: [address] [place] [address] Performed By: #### 5 5-5, 96187-4, 26298-6, 71918-1, 40714-1, 20075-6, 55026-4, 48866-1 #### [facility] CLIA [id number] [address] [place] [address] [place] Basophils/100 WBC (Bld) 0.9 % Normal [facility] Comment on above: Order Comment: Speci men Type: BLOOD SPECIMEN Ordering Facility: [facility] Address: [address] [place] [address] Performed By: #### 5 1774-5, 48409-0, 76241-1, 99614-4, 08027-4, 12054-9, 27253-9, 89394-9 #### [facility] CLIA [id number] [address] [place] [address] [place] Differential cell count method Nom (Bld) Auto Normal [facility] Comment on above: Order Comment: Speci men Type: BLOOD SPECIMEN Ordering Facility: [facility] Address: [address] [place] [address] Performed By: #### 5 1775-5, 67364-8, 51045-1, 77989-3, 33607-5, 26414-3, 06308-9, 49220-9 #### [facility] CLIA [id number] [address] [place] [address] [place] Eosinophils (Bld) [#/Vol] 0.26 10*3/uL Normal <0.46 [facility] Comment on above: Order Comment: Speci men Type: BLOOD SPECIMEN Ordering Facility: [facility] Address: [address] [place] [address] Performed By: #### 5 1775-5, 34384-5, 05785-0, 71393-4, 68613-6, 51859-5, 82495-7, 13324-5 #### [facility] CLIA [id number] [address] [place] [address] [place] Eosinophils/100 WBC (Bld) 5.5 % Normal [facility] Comment on above: Order Comment: Speci men Type: BLOOD SPECIMEN Ordering Facility: [facility] Address: [address] [place] [address] Performed By: #### 5 1775-5, 87069-5, 07634-9, 73670-8, 99055-9, 55024-7, 84576-1, 10313-7 #### [facility] CLIA [id number] [address] [place] [address] [place] Erythrocyte distribution width (RBC) [Ratio] 13.2 % Normal 11.5-15.0 [facility] Comment on above: Order Comment: Speci men Type: BLOOD SPECIMEN Ordering Facility: [facility] Address: [address] [place] [address] Performed By: #### 5 1775-5, 14856-2, 40028-1, 77423-4, 38591-8, 63377-7, 58061-2, 70528-8 #### [facility] CLIA [id number] [address] [place] [address] [place] Hematocrit (Bld) [Volume fraction] 45.3 % Normal 36.0-46.0 [facility] Comment on above: Order Comment: Speci men Type: BLOOD SPECIMEN Ordering Facility: [facility] Address: [address] [place] [address] Performed By: #### 5 1775-5, 52297-4, 80315-5, 62443-0, 43160-8, 91179-8, 38670-9, 22925-5 #### [facility] CLIA [id number] [address] [place] [address] [place] Hemoglobin (Bld) [Mass/Vol] 15.5 g/dL Normal 11.5-15.5 [facility] Comment on above: Order Comment: Speci men Type: BLOOD SPECIMEN Ordering Facility: [facility] Address: [address] [place] [address] Performed By: #### 5 1775-5, 99915-8, 86736-6, 03134-9, 22182-5, 80363-0, 47445-1, 71596-4 #### [facility] CLIA [id number] [address] [place] [address] [place] Immature granulocytes (Bld) [#/Vol] 0.08 10*3/uL Normal <0.10 [facility] Comment on above: Order Comment: Speci men Type: BLOOD SPECIMEN Ordering Facility: [facility] Address: [address] [place] [address] Performed By: #### 5 1775-5, 04987-4, 00506-5, 95649-4, 23693-0, 60023-6, 53671-7, 02774-1 #### [facility] CLIA [id number] [address] [place] [address] [place] Immature granulocytes/100 WBC (Bld) 1.7 % Normal [facility] [facility] Comment on above: Order Comment: Speci men Type: BLOOD SPECIMEN Ordering Facility: [facility] Address: [address] [place] [address] Performed By: #### 5 1775-5, 47570-1, 75602-7, 55476-7, 23495-3, 01469-9, 06829-3, 49396-4 #### [facility] CLIA [id number] [address] [place] [address] [place] Lymphocytes (Bld) [#/Vol] 0.95 10*3/uL Low 1.00-4.00 [facility] Comment on above: Order Comment: Speci men Type: BLOOD SPECIMEN Ordering Facility: [facility] Address: [address] [place] [address] Performed By: #### 5 1775-5, 84171-7, 31075-3, 47512-1, 40108-5, 48100-8, 82730-4, 92734-2 #### [facility] CLIA [id number] [address] [place] [address] [place] Lymphocytes/100 WBC (Bld) 20.3 % Normal [facility] Comment on above: Order Comment: Speci men Type: BLOOD SPECIMEN Ordering Facility: [facility] Address: [address] [place] [address] Performed By: #### 5 1775-5, 71493-9, 80843-1, 64627-3, 51309-6, 11809-8, 84682-0, 55599-3 #### [facility] CLIA [id number] [address] [place] [address] [place] MCH (RBC) [Entitic mass] 29.6 pg Normal 26.0-34.0 [facility] Comment on above: Order Comment: Speci men Type: BLOOD SPECIMEN Ordering Facility: [facility] Address: [address] [place] [address] Performed By: #### 5 1775-5, 92499-9, 26896-7, 24871-8, 83930-4, 59294-9, 00167-0, 61968-9 #### [facility] CLIA [id number] [address] [place] [address] [place] MCHC (RBC) [Mass/Vol] 34.2 g/dL Normal 30.5-36.0 [facility] Comment on above: Order Comment: Speci men Type: BLOOD SPECIMEN Ordering Facility: [facility] Address: [address] [place] [address] Performed By: #### 5 1775-5, 20084-9, 41326-9, 57668-4, 76948-8, 74366-7, 38186-9, 32753-8 #### [facility] CLIA [id number] [address] [place] [address] [place] MCV (RBC) [Entitic vol] 86.5 fL Normal 80.0-100.0 [facility] Comment on above: Order Comment: Speci men Type: BLOOD SPECIMEN Ordering Facility: [facility] Address: [address] [place] [address] Performed By: #### 5 5-5, 24582-2, 87560-2, 24031-8, 18709-4, 97406-2, 19545-3, 60180-2 #### [facility] CLIA [id number] [address] [place] [address] [place] Monocytes (Bld) [#/Vol] 0.66 10*3/uL Normal <0.87 [facility] Comment on above: Order Comment: Speci men Type: BLOOD SPECIMEN Ordering Facility: [facility] Address: [address] [place] [address] Performed By: #### 5 1775-5, 31554-6, 02246-7, 13190-6, 07857-4, 60459-7, 50847-1, 23147-8 #### [facility] CLIA [id number] [address] [place] [address] [place] Monocytes/100 WBC (Bld) 14.1 % Normal [facility] Comment on above: Order Comment: Speci men Type: BLOOD SPECIMEN Ordering Facility: [facility] Address: [address] [place] [address] Performed By: #### 5 1775-5, 55426-4, 92315-8, 12858-6, 60017-0, 89312-9, 02119-4, 18411-1 #### [facility] CLIA [id number] [address] [place] [address] [place] Neutrophils (Bld) [#/Vol] 2.70 10*3/uL Normal 1.45-7.50 [facility] Comment on above: Order Comment: Speci men Type: BLOOD SPECIMEN Ordering Facility: [facility] Address: [address] [place] [address] Performed By: #### 5 1775-5, 13948-3, 55624-8, 91445-3, 05783-9, 14774-4, 25672-9, 94739-6 #### [facility] CLIA [id number] [address] [place] [address] [place] Neutrophils/100 WBC (Bld) 57.5 % Normal [facility] Comment on above: Order Comment: Speci men Type: BLOOD SPECIMEN Ordering Facility: [facility] Address: [address] [place] [address] Performed By: #### 5 1775-5, 40470-2, 47934-1, 05836-8, 71734-6, 99576-5, 51353-1, 26226-2 #### [facility] CLIA [id number] [address] [place] [address] [place] Nucleated RBC (Bld) [#/Vol] 10*3/uL Normal <0.01 [facility] Comment on above: Order Comment: Speci men Type: BLOOD SPECIMEN Ordering Facility: [facility] Address: [address] [place] [address] Performed By: #### 5 1775-5, 13496-3, 95499-6, 77524-5, 18988-9, 33701-3, 93704-8, 34026-6 #### [facility] CLIA [id number] [address] [place], [place] [address] [place] Nucleated RBC/100 WBC (Bld) [Ratio] 0.0 /100 WBC Normal [facility] Comment on above: Order Comment: Speci men Type: BLOOD SPECIMEN Ordering Facility: [facility] Address: [address] [place] [address] Performed By: #### 5 1775-5, 45662-8, 26713-9, 25982-2, 57585-5, 54677-4, 43194-6, 53431-4 #### [facility] CLIA [id number] [address] [place] [address] [place] Platelet mean volume (Bld) [Entitic vol] 10.4 fL Normal 9.0-12.7 [facility] Comment on above: Order Comment: Speci men Type: BLOOD SPECIMEN Ordering Facility: [facility] Address: [address] [place] [address] Performed By: #### 5 1775-5, 87406-2, 96448-4, 60011-0, 84277-9, 07481-9, 43436-9, 19119-0 #### [facility] CLIA [id number] [address] [place] [address] [place] Platelets (Bld) [#/Vol] 192 10*3/uL Normal 150-400 [facility] Comment on above: Order Comment: Speci men Type: BLOOD SPECIMEN Ordering Facility: [facility] Address: [address] [place] [address] Performed By: #### 5 1775-5, 67287-7, 75683-0, 08194-0, 40548-7, 17823-1, 92252-8, 73981-1 #### [facility] CLIA [id number] [address] [place] [address] [place] RBC (Bld) [#/Vol] 5.24 10*6/uL High 3.90-5.20 [facility] Comment on above: Order Comment: Speci men Type: BLOOD SPECIMEN Ordering Facility: [facility] Address: [address] [place] [address] Performed By: #### 5 1775-5, 15548-6, 48422-9, 88581-4, 28452-9, 43079-9, 69211-6, 26660-0 #### [facility] CLIA [id number] [address] [place] [address] [place] WBC (Bld) [#/Vol] 4.69 10*3/uL Normal 3.70-11.00 [facility] Comment on above: Order Comment: Speci men Type: BLOOD SPECIMEN Ordering Facility: [facility] Address: [address] [place] [address] Performed By: #### 5 1775-5, 79548-4, 56259-4, 67376-0, 26484-2, 38648-5, 75790-4, 72206-1 #### [facility] CLIA [id number] [address] [place], [place] [address] [place] Comprehensive metabolic 2000 panelon 07-12-2024 Albumin [Mass/Vol] 4.4 g/dL Normal 3.9-4.9 [facility] Comment on above: Order Comment: Speci men Type: BLOOD SPECIMEN Ordering Facility: [facility] Address: [address] [place] [address] Performed By: #### 5 1775-5, 75606-1, 60424-8, 76947-4, 74374-4, 84637-1, 79780-5, 53065-6 #### [facility] CLIA [id number] [address] [place], [place] [address] [place] ALP [Catalytic activity/Vol] 54 U/L Normal 34-123 [facility] Comment on above: Order Comment: Speci men Type: BLOOD SPECIMEN Ordering Facility: [facility] Address: [address] [place] [address] Performed By: #### 5 1775-5, 04563-1, 40411-3, 80990-1, 92592-6, 96155-5, 54808-8, 53744-2 #### [facility] CLIA [id number] [address] [id number] [place] ALT [Catalytic activity/Vol] 13 U/L Normal 7-38 [facility] Comment on above: Order Comment: Speci men Type: BLOOD SPECIMEN Ordering Facility: [facility] Address: [address] [place] [address] Performed By: #### 5 1775-5, 62685-6, 57876-9, 77506-6, 15774-5, 86264-2, 80325-4, 38770-8 #### [facility] CLIA [id number] [address] [place] [address] [place] Anion gap [Moles/Vol] 14 mmol/L Normal 8-15 [facility] Comment on above: Order Comment: Speci men Type: BLOOD SPECIMEN Ordering Facility: [facility] Address: [address] [place] [address] Performed By: #### 5 5-5, 10798-5, 31618-7, 54021-0, 12394-9, 25524-7, 20910-0, 91320-6 #### [facility] CLIA [id number] [address] [place], [place] [address] [place] AST [Catalytic activity/Vol] 23 U/L Normal 13-35 [facility] Comment on above: Order Comment: Speci men Type: BLOOD SPECIMEN Ordering Facility: [facility] Address: [address] [id number] Performed By: #### 5 1775-5, 66632-6, 17717-9, 75602-4, 96301-7, 68378-3, 20875-8, 83811-3 #### [facility] CLIA [id number] [address] [place], [place] [address] [place] Bilirubin [Mass/Vol] 0.5 mg/dL Normal 0.2-1.3 [facility] Comment on above: Order Comment: Speci men Type: BLOOD SPECIMEN Ordering Facility: [facility] Address: [address] [place] [address] Performed By: #### 5 1775-5, 91753-1, 70023-0, 99607-4, 26091-3, 60943-5, 03164-9, 25364-8 #### [facility] CLIA [id number] [address] [place] [address] [place] Calcium [Mass/Vol] 10.2 mg/dL Normal 8.5-10.2 [facility] Comment on above: Order Comment: Speci men Type: BLOOD SPECIMEN Ordering Facility: [facility] Address: [address] [place] [address] Performed By: #### 5 1775-5, 75255-1, 58440-2, 48748-9, 95074-6, 27716-9, 53455-4, 45885-3 #### [facility] CLIA [id number] [address] [place] [address] [place] Chloride [Moles/Vol] 93 mmol/L Low 98-107 [facility] Comment on above: Order Comment: Speci men Type: BLOOD SPECIMEN Ordering Facility: [facility] Address: [address] [place] [address] Performed By: #### 5 1775-5, 89285-2, 36659-3, 73435-2, 10324-8, 70298-0, 53982-4, 28229-5 #### [facility] CLIA [id number] [address] [place] [address] [place] CO2 [Moles/Vol] 27 mmol/L Normal 22-30 [facility] Comment on above: Order Comment: Speci men Type: BLOOD SPECIMEN Ordering Facility: [facility] Address: [address], [place] [address] Performed By: #### 5 1775-5, 70176-2, 71961-3, 88215-9, 66658-8, 96293-9, 28005-7, 45106-3 #### [facility] CLIA [id number] [address] [place], [place] [address] [place] Creatinine [Mass/Vol] 0.84 mg/dL Normal 0.58-0.96 [facility] Comment on above: Order Comment: Speci men Type: BLOOD SPECIMEN Ordering Facility: [facility] Address: [address] [place] [address] Performed By: #### 5 1775-5, 45559-8, 24124-8, 52745-3, 19604-9, 94156-6, 67929-9, 41806-4 #### [facility] CLIA [id number] [address] [place] [address] [place] Creatinine and Glomerular filtration rate.predicted panel (S/P/Bld) 69 mL/min/1.73m??? Normal >=60 [facility] Comment on above: Order Comment: Kristofer dickinson Type: BLOOD SPECIMEN Ordering Facility: [facility] Address: [address] [place] [address] Result Comment: Sravanthi mated Glomerular Filtration Rate [...] actual GFR. Performed By: #### 5 1775-5, 03395-9, 25058-5, 00741-6, 91098-2, 89541-1, 95112-6, 64346-4 #### [facility] CLIA [id number] [address] [place] [address] [place] Glucose [Mass/Vol] 101 mg/dL High 74-99 [facility] Comment on above: Order Comment: Speci men Type: BLOOD SPECIMEN Ordering Facility: [facility] Address: [address] [place] [address] Result Comment: The [place] [employer] (ADA) provides guidance for cutoff [...] Standards of Medical Care in Diabetes 2016, [place] [employer]. Diabetes Care. 2016.39(Suppl 1). Performed By: #### 5 1775-5, 46981-8, 15641-2, 09514-2, 90007-9, 83041-8, 67025-1, 63802-4 #### [facility] CLIA [id number] [address] [place] [address] [place] Potassium [Moles/Vol] 3.5 mmol/L Low 3.7-5.1 [facility] Comment on above: Order Comment: Kristofer dickinson Type: BLOOD SPECIMEN Ordering Facility: [facility] Address: [address] [place] [address] Performed By: #### 5 1775-5, 02502-5, 30318-3, 54892-7, 11987-3, 97166-8, 56112-3, 71438-2 #### [facility] CLIA [id number] [address] [place], [place] [address] [place] Protein [Mass/Vol] 7.1 g/dL Normal 6.3-8.0 [facility] Comment on above: Order Comment: Kristofer dickinson Type: BLOOD SPECIMEN Ordering Facility: [facility] Address: [address] [place] [address] Performed By: #### 5 1775-5, 58083-3, 33359-6, 02665-2, 76594-0, 01619-7, 04959-3, 18821-0 #### [facility] CLIA [id number] [address] [place] [address] [place] Sodium [Moles/Vol] 134 mmol/L Low 136-144 [facility] Comment on above: Order Comment: Speci men Type: BLOOD SPECIMEN Ordering Facility: [facility] Address: [address] [place] [address] Performed By: #### 5 1775-5, 83098-2, 86938-2, 25272-3, 69430-3, 95936-7, 04470-8, 43947-0 #### [facility] CLIA [id number] [address] [place] [address] [place] Urea nitrogen [Mass/Vol] 18 mg/dL Normal 7-21 [facility] Comment on above: Order Comment: Speci men Type: BLOOD SPECIMEN Ordering Facility: [facility] Address: [address] [place] [address] Performed By: #### 5 1775-5, 62684-5, 16347-0, 12956-3, 46058-2, 45594-9, 35676-0, 86003-1 #### [facility] CLIA [id number] [address] [place] [address] [place] HbA1c (Bld)on 07-12-2024 Average glucose Estimated from glycated hemoglobin (Bld) [Mass/Vol] 111 mg/dL Normal [facility] Comment on above: Order Comment: Speci men Type: BLOOD SPECIMEN Ordering Facility: [facility] Address: [address] [place] [address] Result Comment: eAG: (Estimated average glucose) is a calculated value from HgbA1c and is computer help desk representative of the average blood glucose level in the last 2-3 month period. Performed By: #### 5 5454-3 #### [facility] CLIA [id number] [address] [place] [address] [place] HbA1c (Bld) [Mass fraction] 5.5 % Normal 4.3-5.6 [facility] Comment on above: Order Comment: Kristofer dickinson Type: BLOOD SPECIMEN Ordering Facility: [facility] Address: [address] [place] [address] Result Comment: [place] Diabetes Association guidelines indicate that patients with HgbA1c in the range 5.7-6.4% are at increased risk for development of diabetes, and intervention by lifestyle modification may be beneficial. HgbA1c greater or equal to 6.5% is considered diagnostic of diabetes. Performed By: #### 5 5454-3 #### [facility] CLIA [id number] [address] [place] [address] [place] Lipid 1996 panelon 5 Cholesterol [Mass/Vol] 208 mg/dL High <200 [facility] Comment on above: Order Comment: Kristofer dickinson Type: BLOOD SPECIMEN Ordering Facility: [facility] Address: [address] [place] [address] Result Comment: <200 mg/dL, Desirable 200-239 mg/dL, Borderline high >239 mg/dL, High Performed By: #### 5 1775-5, 20738-4, 60210-9, 27299-5, 11563-8, 69655-9, 17854-5, 39977-3 #### [facility] CLIA [id number] [address] [place] [address] [place] Cholesterol in HDL [Mass/Vol] 61 mg/dL Normal >39 [facility] Comment on above: Order Comment: Kristofer dickinson Type: BLOOD SPECIMEN Ordering Facility: [facility] Address: [address] [place] [address] Result Comment: 40-5 9 mg/dL, Acceptable >59 mg/dL, High: Negative risk factor for coronary heart disease <40 mg/dL, Low: Positive risk factor for coronary heart disease Performed By: #### 5 1775-5, 11849-6, 82169-5, 98540-8, 74160-3, 86268-6, 27817-9, 15911-4 #### [facility] CLIA [id number] [address] [place] [address] [place] Cholesterol in LDL [Mass/Vol] 84 mg/dL Normal <100 [facility] Comment on above: Order Comment: Jenniferi teena Type: BLOOD SPECIMEN Ordering Facility: [facility] Address: [address] [place] [address] Result Comment: <100 mg/dL, Optimal 100-129 mg/dL, Near optimal/above optimal 130-159 mg/dL, Borderline high 160-189 mg/dL, High >189 mg/dL, Very high Secondary prevention optimal LDL Cholesterol levels are recommended to be < 70 mg/dL Performed By: #### 5 1775-5, 28670-5, 31273-1, 48798-7, 11492-7, 05813-6, 23997-5, 16265-6 #### [facility] CLIA [id number] [address] [place] [address] [place] Cholesterol in LDL/Cholesterol in HDL [Mass ratio] 1.38 {ratio} Normal <2.54 [facility] Comment on above: Order Comment: Speci men Type: BLOOD SPECIMEN Ordering Facility: [facility] Address: [address] [place] [address] Result Comment: Refe rence: 1. National Cholesterol Education Program ATP III Guideline At-A-Glance Quick Desk Reference: National Heart, Lung, and Blood [place]. National Institutes of Health. 2001: NIH Publication No. 01-3305. 2. An International Atherosclerosis Society position paper: global recommendations for the management of dyslipidemia: executive summary, Atherosclerosis. 2014: 232(2):410-413. Performed By: #### 5 1775-5, 89518-1, 65752-7, 92799-2, 88894-1, 54647-2, 47903-6, 98269-0 #### [facility] CLIA [id number] [address] [place], [place] [address] [place] Cholesterol in VLDL [Mass/Vol] 63 mg/dL High <30 [facility] Comment on above: Order Comment: Jenniferi men Type: BLOOD SPECIMEN Ordering Facility: [facility] Address: [address] [place] [address] Performed By: #### 5 1775-5, 99183-1, 32353-9, 23825-2, 88569-5, 94048-0, 07801-3, 16810-9 #### [facility] CLIA [id number] [address] [place] [address] [place] Cholesterol non HDL [Mass/Vol] 147 mg/dL High <130 [facility] Comment on above: Order Comment: Kristofer men Type: BLOOD SPECIMEN Ordering Facility: [facility] Address: [address] [place] [address] Result Comment: <130 mg/dL, Optimal 130-159 mg/dL, Near optimal/above optimal 160-189 mg/dL, Borderline high 190-219 mg/dL, High >219 mg/dL, Very high Secondary prevention optimal non HDL Cholesterol levels are recommended to be <100 mg/dL Performed By: #### 5 1775-5, 68750-0, 46539-0, 17902-4, 20742-8, 51296-5, 36844-0, 55290-0 #### [facility] CLIA [id number] [address] [place] [address] [place] Cholesterol.total/Cho lesterol in HDL [Mass ratio] 3.41 {ratio} Normal <5.10 [facility] Comment on above: Order Comment: Speci men Type: BLOOD SPECIMEN Ordering Facility: [facility] Address: [address] [place] [address] Performed By: #### 5 1775-5, 95399-7, 03397-2, 55924-8, 36399-0, 63780-5, 64762-9, 73600-0 #### [facility] CLIA [id number] [address] [place], [place] [address] [place] FASTING TIME 12 hrs Normal [facility] Comment on above: Order Comment: Speci men Type: BLOOD SPECIMEN Ordering Facility: [facility] Address: [address] [place] [address] Performed By: #### 5 1775-5, 08609-0, 32155-9, 25580-2, 04840-6, 30302-9, 92439-9, 61251-4 #### [facility] CLIA [id number] [address] [place] [address] [place] Triglyceride [Mass/Vol] 314 mg/dL High <150 [facility] Comment on above: Order Comment: Speci men Type: BLOOD SPECIMEN Ordering Facility: [facility] Address: [address] [place] [address] Result Comment: <150 mg/dL, Normal 150-199 mg/dL, Borderline high 200-499 mg/dL, High >499 mg/dL, Very high Performed By: #### 5 1775-5, 40925-2, 75418-2, 20275-5, 98708-0, 84054-7, 41627-7, 84764-3 #### [facility] CLIA [id number] [address] [place] [address] [place] Colonoscopy Reporton 024 Colonoscopy Report [facility] Medical Records Department [address] [place] [address] Colonoscopy Report MR#: [id number] Acct: [id number] Name: CONCEPCION DONALDSON Rep #: [id number] : 1940 83 From: Gavino Jay DO PCP: Dr. Preston Haney MD Status:[facility] Patient Name: Concepcion Donaldson Procedure Date: 05/30/2024 [...] present medications. Procedure Code(s): --- Professional --- 20805, 59, Colonoscopy, flexible; with biopsy, single or multiple 31560, 51, Destruction of internal hemorrhoid(s) by thermal energy (eg, infrared coagulation, cautery, radiofrequency) CPT copyright 2021 [employer]. All rights reserved. The codes documented in this report are prelimi (more content not included)... Normal [facility] EGD Reporton 05-30-2024 EGD Report [facility] Medical Records Department [address] [place] [address] EGD Report MR#: [id number] Acct: [id number] Name: CONCEPCION DONALDSON Rep #: [id number] : 1940 83 From: Gavino Jay DO PCP: Dr. Preston Haney MD Status:[facility] Patient Name: Concepcion Donaldson Procedure Date: 05/30/2024 [...] present medications. Procedure Code(s): --- Professional --- 75056, Esophagogastroduodenosc opy, flexible, transoral; with biopsy, single or multiple CPT copyright 2021 [employer]. All rights reserved. The codes documented in this report are preliminary and upon petrography teacher review may be revised to meet current compliance requirements. Gavino Jay DO 05/30/2024 11:29:50 AM This report has been signed electronically. Number of Addenda: 0 Note Initiated On: 05/30/2024 10:44 AM 05/30/24 1130 Date Gavino Sextonigner Signature: Date (if indicated) CC: Dr. Preston Haney MD; Gavino Jay DO Date Dictated: 05/30/24 1044 Date Transcribed: Fish Receiver: SHILA Signed Normal [facility] H Pylori (initial)on 024 H Pylori (initial) --- Patient Age/Sex Location Account Attending Physician CONCEPCION DONALDSON 83/F EN [id number] Gavino Jay DO Specimen: [id number] Received: 05/31/24 Status: IAN Torres Num: [id number] Spec Type: IMMUNO Subm Dr: Gavino Jay, PHYSICIAN INSTITUTION [place] [address] SPECIMEN INFORMATION: Tissue Source: A - Gastric body biopsy Clinical Info: Rectal hemorrhage Specimen Number: [id number] CPT code: 73504 METHODOLOGY: Deparaffinized sections of prefer/formalin-fixed tissue or [...] developed and their performance characteristics determined by [facility]. They may not have been cleared or approved by the U.S. Food and Drug Administration. The FDA has determined that such clearance or approval is not necessary. The above immunohistochemical/delmis Maria D markers are ordered and reviewed by the Pathologist. INTERPRETATION: A. Gastric body, biopsy: Negative for Helicobacter pylori organisms. 06/01/2024 Signed (signature on file) Dr. Vic Zamora MD 06/01/24 1317 Normal [facility] Comment on above: Performed By: #### P H.PYLORI #### [facility] [address] [facility] [place], [address] MR/POSTOP.ANEon 05-30-2024 MR/POSTOP.ANE [facility] Medical Records Department [address] [place] [address] Anesthesia Postop Eval I 05/30/24 1129 MR#: [id number] Acct: [id number] Name: CONCEPCION DONALDSON Rep #: [id number] : 1940 83 From: Marin Estrada PCP: Dr. Preston Haney MD Status:REG SDC Y Race: C Location: [place] [address] Anesthesia: Postop Eval I Current Vital Signs [...] Marin Fong Signature: Date CC: Signed Normal [facility] MR/PILYRCWT9si 05-30-2024 MR/POSTOPAN2 [facility] Medical Records Department [address] [place] [address] Anesthesia Postop Eval II 05/30/24 1152 MR#: [id number] Acct: [id number] Name: CONCEPCION DONALDSON Rep #: [id number] : 1940 83 From: Casey Kemp MD PCP: Dr. Preston Haney MD Status:REG SDC Y Race: C Location: [place] [address] Anesthesia Postop Eval I Sum Postop Eval [...] Casey Fong Signature: Date CC: Signed Normal [facility] Special Stain Group Ion 11-2 Special Stain Group I ----- Patient Age/Sex Location Account Attending Physician MENDOZACONCEPCION A 83/F EN [id number] Gavino Jay DO Specimen: [id number] Received: 05/30/24 Status: IAN Melissa Num: [id number] Spec Type: EGD BIOPSY Subm Dr: Gavino [...] for Helicobacter pylori will be reported separately ([id number]). Special stains for acid fast bacilli and [...] Account Attending Physician CONCEPCION DONALDSON 83/F EN [id number] Gavino Jay DO C. Received in fixative [...] submitted in one cassette. SJ 05/31/2024 TC:3 CPT:18873f6,39279v1 Patient Age/Sex Location Account Attending Physician CONCEPCION DONALDSON 83/F ADITHYA [id number] Gavino Jay DO Signed (signature on file) Dr. Vic Zamora MD 06/01/24 1309 Normal [facility] Comment on above: Performed By: #### P SSI #### [facility] [address] [place], [address] CBC W/Diff, Automatedon 11 Absolute Lymph 0.86 X10 3/uL Normal 0.83-4.51 [facility] Comment on above: Performed By: #### L 500.4050, L100.0100 #### [facility] [address] [place], [address] Absolute Neut 3.3 X10 3/uL Normal 2.0-7.7 [facility] Comment on above: Performed By: #### L 500.4050, L100.0100 #### [facility] [address] [place], [address] Basophils/100 WBC (Bld) 0.8 % Normal 0-1 [facility] Comment on above: Performed By: #### L 500.4050, L100.0100 #### [facility] [address] [place], [address] Eosinophils/100 WBC (Bld) 3.8 % Normal 0-5 [facility] Comment on above: Performed By: #### L 500.4050, L100.0100 #### [facility] [address] [place], [address] Erythrocyte distribution width (RBC) [Ratio] 15.0 % High 11.6-14.6 [facility] Comment on above: Performed By: #### L 500.4050, L100.0100 #### [facility] [address] [place], [address] Hematocrit (Bld) [Volume fraction] 44.0 % Normal 37-47 [facility] Comment on above: Performed By: #### L 500.4050, L100.0100 #### [facility] [address] [place], [address] Hemoglobin (Bld) [Mass/Vol] 14.4 g/dL Normal 12.0-15.0 [facility] Comment on above: Performed By: #### L 500.4050, L100.0100 #### [facility] [address] [place], [address] IG% 1.000 High 0.0-0.9 [facility] Comment on above: Result Comment: IG% - Immature Granulocytes (promyelocytes, myelocytes and metamyelocytes) > 1% indicates that a LEFT SHIFT is Present. Performed By: #### L 500.4050, L100.0100 #### [facility] [address] [place], [address] Lymphocytes/100 WBC (Bld) 17.0 % Low 19-41 [facility] Comment on above: Performed By: #### L 500.4050, L100.0100 #### [facility] [address] [place], [address] MCH (RBC) [Entitic mass] 29.3 pg Normal 27.0-32.0 [facility] Comment on above: Performed By: #### L 500.4050, L100.0100 #### [facility] [address] [place], [address] MCHC (RBC) [Mass/Vol] 32.7 g/dL Normal 32-36 [facility] Comment on above: Performed By: #### L 500.4050, L100.0100 #### [facility] [address] [place], [address] MCV (RBC) [Entitic vol] 89.4 fL Normal 81-99 [facility] Comment on above: Performed By: #### L 500.4050, L100.0100 #### [facility] [address] [place], [address] Monocytes/100 WBC (Bld) 12.8 % High 0-10 [facility] Comment on above: Performed By: #### L 500.4050, L100.0100 #### [facility] [address] [place], [address] Neutrophils/100 WBC (Bld) 64.6 % Normal 47-70 [facility] Comment on above: Performed By: #### L 500.4050, L100.0100 #### [facility] [address] [place], [address] Nucleated RBC (Bld) [#/Vol] 0 10*3/uL Normal 0-5 [facility] Comment on above: Performed By: #### L 500.4050, L100.0100 #### [facility] [address] [place], [address] Platelet mean volume (Bld) [Entitic vol] 11.4 fL Normal 6.2-12.0 [facility] Comment on above: Performed By: #### L 500.4050, L100.0100 #### [facility] [address] [place], [address] Platelets (Bld) [#/Vol] 196 10*3/uL Normal 150-450 [facility] Comment on above: Performed By: #### L 500.4050, L100.0100 #### [facility] [address] [place], [address] RBC (Bld) [#/Vol] 4.92 10*6/uL Normal 4.2-5.4 [facility] Comment on above: Performed By: #### L 500.4050, L100.0100 #### [facility] [address] [place], [address] RDW SD 48.2 fl High 35.1-43.9 [facility] Comment on above: Performed By: #### L 500.4050, L100.0100 #### [facility] [address] [place], [address] WBC (Bld) [#/Vol] 5.1 10*3/uL Normal 4.4-11.0 [facility] Comment on above: Performed By: #### L 500.4050, L100.0100 #### [facility] [address] [place], [address] Comprehensive Metabolic Prof ilon 05-25-2024 Albumin [Mass/Vol] 3.9 g/dL Normal 3.2-5.0 [facility] Comment on above: Performed By: #### P SSI #### [facility] [address] [place], [address] Albumin/Globulin [Mass ratio] 1.1 {ratio} Normal 0.9-2.4 [facility] Comment on above: Performed By: #### P SSI #### [facility] [address] [place], [address] ALK P 48 U/L Normal 45-117 [facility] Comment on above: Performed By: #### P SSI #### [facility] [address] [place], [address] ALT [Catalytic activity/Vol] 25 U/L Normal 13-56 [facility] Comment on above: Performed By: #### P SSI #### [facility] [address] [place], [address] AST [Catalytic activity/Vol] 22 U/L Normal 15-37 [facility] Comment on above: Performed By: #### P SSI #### [facility] [address] [place], [address] Bilirubin [Mass/Vol] 0.50 mg/dL Normal 0.20-1.00 [facility] Comment on above: Result Comment: For patients on eltrombopag therapy, use of Dimension [place] TBIL is not recommended. Performed By: #### P SSI #### [facility] [address] [place], [address] BUN/CRE 21.6 RATIO High 10-20 [facility] Comment on above: Performed By: #### P SSI #### [facility] [address] [place], [address] CA,Total 9.9 mg/dL Normal 8.5-10.1 [facility] Comment on above: Performed By: #### P SSI #### [facility] [address] [place], [address] Chloride [Moles/Vol] 93 mmol/L Low 98-107 [facility] Comment on above: Performed By: #### P SSI #### [facility] [address] [place], [address] CO2 [Moles/Vol] 30.0 mmol/L Normal 21.0-32.0 [facility] Comment on above: Performed By: #### P SSI #### [facility] [address] [place], [address] Creatinine [Mass/Vol] 0.84 mg/dL Normal 0.55-1.02 [facility] Comment on above: Result Comment: The validity of the calculated GFR GFRAA in patients over 70 years has not been determined. Clinical correlation is essential. Performed By: #### P SSI #### [facility] [address] [place], [address] EST GFR - AA 84 mL/min Normal >60 [facility] Comment on above: Result Comment: Afri can Lithuanian GFR Calc Performed By: #### P SSI #### [facility] [address] [place], [address] GAP 6 Normal 5-15 [facility] Comment on above: Performed By: #### P SSI #### [facility] [address] [place], [address] GFR/1.73 sq M.predicted among non-blacks MDRD (S/P/Bld) [Vol rate/Area] 69 mL/min/{1.73_m2} Normal >60 [facility] Comment on above: Result Comment: Non- GFR Calc Performed By: #### P SSI #### [facility] [address] [place], [address] Globulin (S) [Mass/Vol] 3.7 g/dL Normal 2.2-4.2 [facility] Comment on above: Performed By: #### P SSI #### [facility] [address] [place], [address] Glucose [Mass/Vol] 88 mg/dL Normal 74-106 [facility] Comment on above: Performed By: #### P SSI #### [facility] [address] [place], [address] Potassium [Moles/Vol] 3.7 mmol/L Normal 3.5-5.1 [facility] Comment on above: Performed By: #### P SSI #### [facility] [address] [place], [address] Sodium [Moles/Vol] 128 mmol/L Low 136-145 [facility] Comment on above: Performed By: #### P SSI #### [facility] [address] [place], [address] T PROT 7.6 g/dL Normal 6.4-8.2 [facility] Comment on above: Performed By: #### P SSI #### [facility] [address] [place], [place], [address] Urea nitrogen [Mass/Vol] 18 mg/dL Normal 7-18 [facility] Comment on above: Performed By: #### P SSI #### [facility] [address] [place], [place], [address] CNOVon 04-24-2024 CNOV Office Visit (INTMWS ) CONCEPCION DONALDSON ([id number]) 1940 F Date Time Provider Department 04/24/24 10:20 AM BYRON SUTTON INTMWS During your visit today, we recorded the following information about you: Pulse Respiration Blood pressure Weight 68/minute 16/minute 130/70 70.6 kg Height 1.607 m Byron Sutton APRN.MUD GRINDER 04/24/2024 11:10 AM Signed Concepcion Donaldson is [...] Outside specialists seen: rheumatology, general surgery, urogyn, hat trimmer, urology, spine center Medical/Family history review Reviewed [...] review all the medicines you take, even [id number]-pkpdezl medicines. As you get older, the way [...] shower floors. (more content not included)... Normal [facility] Gastroenterology Visit Repor ton 04-20-2024 Gastroenterology Visit Report [facility] Gastroenterology [address] [place] [address] OFFICE VISIT Date of Service: 04/20/24 MR#: [id number] Acct: [id number] Name: CONCEPCION DONALDSON Rep #: [id number] : 1940 Provider: BETH yip Age/Sex: 83/F Location[place] [facility] Status: Signed Intake Vital Signs 09/06/23 09:33 Height 5 ft 3 in Weight: 160 lb BMI 28.3 Intake Visit Reasons: Rectal bleeding Chief Complaint: follow up for c/o rectal bleeding [employer]ing [employer] Analyst Required: No Is patient in pain?: No [...] appearing, comfortable (more content not included)... Normal [facility] CBC W/Diff, Automatedon 03-11 Absolute Lymph 1.00 X10 3/uL Normal 0.83-4.51 [facility] Comment on above: Performed By: #### L 500.4050, L100.0100 #### [facility] [address] [place], [address] Absolute Neut 3.2 X10 3/uL Normal 2.0-7.7 [facility] Comment on above: Performed By: #### L 500.4050, L100.0100 #### [facility] [address] [place], [address] Basophils/100 WBC (Bld) 1.0 % Normal 0-1 [facility] Comment on above: Performed By: #### L 500.4050, L100.0100 #### [facility] [address] [place], [address] Eosinophils/100 WBC (Bld) 4.9 % Normal 0-5 [facility] Comment on above: Performed By: #### L 500.4050, L100.0100 #### [facility] [address] [place], [address] Erythrocyte distribution width (RBC) [Ratio] 13.9 % Normal 11.6-14.6 [facility] Comment on above: Performed By: #### L 500.4050, L100.0100 #### [facility] [address] [place], [address] Hematocrit (Bld) [Volume fraction] 42.2 % Normal 37-47 [facility] Comment on above: Performed By: #### L 500.4050, L100.0100 #### [facility] [address] [place], [address] Hemoglobin (Bld) [Mass/Vol] 14.3 g/dL Normal 12.0-15.0 [facility] Comment on above: Performed By: #### L 500.4050, L100.0100 #### [facility] [address] [place], [address] IG% 0.600 Normal 0.0-0.9 [facility] Comment on above: Result Comment: IG% - Immature Granulocytes (promyelocytes, myelocytes and metamyelocytes) > 1% indicates that a LEFT SHIFT is Present. Performed By: #### L 500.4050, L100.0100 #### [facility] [address] [place], [address] Lymphocytes/100 WBC (Bld) 19.6 % Normal 19-41 [facility] Comment on above: Performed By: #### L 500.4050, L100.0100 #### [facility] [address] [place], [address] MCH (RBC) [Entitic mass] 28.9 pg Normal 27.0-32.0 [facility] Comment on above: Performed By: #### L 500.4050, L100.0100 #### [facility] [address] [place], [address] MCHC (RBC) [Mass/Vol] 33.9 g/dL Normal 32-36 [facility] Comment on above: Performed By: #### L 500.4050, L100.0100 #### [facility] [address] [place], [address] MCV (RBC) [Entitic vol] 85.3 fL Normal 81-99 [facility] Comment on above: Performed By: #### L 500.4050, L100.0100 #### [facility] [address] [place], [address] Monocytes/100 WBC (Bld) 11.2 % High 0-10 [facility] Comment on above: Performed By: #### L 500.4050, L100.0100 #### [facility] [address] [place], [address] Neutrophils/100 WBC (Bld) 62.7 % Normal 47-70 [facility] Comment on above: Performed By: #### L 500.4050, L100.0100 #### [facility] [address] [place], [address] Nucleated RBC (Bld) [#/Vol] 0 10*3/uL Normal 0-5 [facility] Comment on above: Performed By: #### L 500.4050, L100.0100 #### [facility] [address] [place], [address] Platelet mean volume (Bld) [Entitic vol] 11.1 fL Normal 6.2-12.0 [facility] Comment on above: Performed By: #### L 500.4050, L100.0100 #### [facility] [address] [place], [address] Platelets (Bld) [#/Vol] 171 10*3/uL Normal 150-450 [facility] Comment on above: Performed By: #### L 500.4050, L100.0100 #### [facility] [address] [place], [address] RBC (Bld) [#/Vol] 4.95 10*6/uL Normal 4.2-5.4 [facility] Comment on above: Performed By: #### L 500.4050, L100.0100 #### [facility] [address] [place], [address] RDW SD 42.6 fl Normal 35.1-43.9 [facility] Comment on above: Performed By: #### L 500.4050, L100.0100 #### [facility] [address] [place], [address] WBC (Bld) [#/Vol] 5.1 10*3/uL Normal 4.4-11.0 [facility] Comment on above: Performed By: #### L 500.4050, L100.0100 #### [facility] [address] [place], [address] Comprehensive Metabolic Prof il 03-27-2024 Albumin [Mass/Vol] 3.6 g/dL Normal 3.2-5.0 [facility] Comment on above: Performed By: #### L 500.4050, L100.0100 #### [facility] [address] [place], [address] Albumin/Globulin [Mass ratio] 1.0 {ratio} Normal 0.9-2.4 [facility] Comment on above: Performed By: #### L 500.4050, L100.0100 #### [facility] [address] [place], [address] ALK P 43 U/L Low 45-117 [facility] Comment on above: Performed By: #### L 500.4050, L100.0100 #### [facility] [address] [place], [address] ALT [Catalytic activity/Vol] 20 U/L Normal 13-56 [facility] Comment on above: Performed By: #### L 500.4050, L100.0100 #### [facility] [address] [place], [address] AST [Catalytic activity/Vol] 23 U/L Normal 15-37 [facility] Comment on above: Performed By: #### L 500.4050, L100.0100 #### [facility] [address] [place], [address] Bilirubin [Mass/Vol] 0.60 mg/dL Normal 0.20-1.00 [facility] Comment on above: Result Comment: For patients on eltrombopag therapy, use of Dimension [place] TBIL is not recommended. Performed By: #### L 500.4050, L100.0100 #### [facility] [address] [place], [address] BUN/CRE 16.3 RATIO Normal 10-20 [facility] Comment on above: Performed By: #### L 500.4050, L100.0100 #### [facility] [address] [place], [address] CA,Total 9.8 mg/dL Normal 8.5-10.1 [facility] Comment on above: Performed By: #### L 500.4050, L100.0100 #### [facility] [address] [place], [address] Chloride [Moles/Vol] 97 mmol/L Low 98-107 [facility] Comment on above: Performed By: #### L 500.4050, L100.0100 #### [facility] [address] [place], [address] CO2 [Moles/Vol] 25.0 mmol/L Normal 21.0-32.0 [facility] Comment on above: Performed By: #### L 500.4050, L100.0100 #### [facility] [address] [place], [address] Creatinine [Mass/Vol] 0.92 mg/dL Normal 0.55-1.02 [facility] Comment on above: Result Comment: The validity of the calculated GFR GFRAA in patients over 70 years has not been determined. Clinical correlation is essential. Performed By: #### L 500.4050, L100.0100 #### [facility] [address] [place], [address] EST GFR - AA 75 mL/min Normal >60 [facility] Comment on above: Result Comment: Afri can Lithuanian GFR Calc Performed By: #### L 500.4050, L100.0100 #### [facility] [address] [place], [address] GAP 8 Normal 5-15 [facility] Comment on above: Performed By: #### L 500.4050, L100.0100 #### [facility] [address] [place], [address] GFR/1.73 sq M.predicted among non-blacks MDRD (S/P/Bld) [Vol rate/Area] 62 mL/min/{1.73_m2} Normal >60 [facility] Comment on above: Result Comment: Non- GFR Calc Performed By: #### L 500.4050, L100.0100 #### [facility] [address] [place], [address] Globulin (S) [Mass/Vol] 3.5 g/dL Normal 2.2-4.2 [facility] Comment on above: Performed By: #### L 500.4050, L100.0100 #### [facility] [address] [place], [address] Glucose [Mass/Vol] 108 mg/dL High 74-106 [facility] Comment on above: Result Comment: Fast ing Glucose result from 100 to 125 mg/dL suggests IMPAIRED HOMEOSTASIS per A.D.A. criteria. Performed By: #### L 500.4050, L100.0100 #### [facility] [address] [place], [address] Potassium [Moles/Vol] 4.0 mmol/L Normal 3.5-5.1 [facility] Comment on above: Performed By: #### L 500.4050, L100.0100 #### [facility] [address] [place], [address] Sodium [Moles/Vol] 130 mmol/L Low 136-145 [facility] Comment on above: Performed By: #### L 500.4050, L100.0100 #### [facility] [address] [place], [address] T PROT 7.1 g/dL Normal 6.4-8.2 [facility] Comment on above: Performed By: #### L 500.4050, L100.0100 #### [facility] [address] [place], [place], [address] Urea nitrogen [Mass/Vol] 15 mg/dL Normal 7-18 [facility] Comment on above: Performed By: #### L 500.4050, L100.0100 #### [facility] [address] [place], [place], [address] ANTINUCLEAR ANTIBODIES DIREC Ton 02-21-2024 ANNIE,DIRECT Negative Normal Negative [facility] Comment on above: Result Comment: Perf ormed at: [facility] [employer] [id number] Scruff Worker: Gregorio Stout PhD, Phone: [phone] Performed By: #### P H.PYLORI #### [facility] [address] [place], [place], [address] CCP IgG Antibodieson 024 CCP IgG Ab. 5 units Normal 0-19 [facility] Comment on above: Result Comment: Nega tive <20 Weak positive 20 - 39 Moderate positive 40 - 59 Strong positive >59 Performed at: [facility] [employer] [id number] Scruff Worker: Gregorio Stout PhD, Phone: [phone] Performed By: #### P SSI #### [facility] [address] [place], [place], [address] CBC W/Diff, Automatedon Absolute Lymph 0.99 X10 3/uL Normal 0.83-4.51 [facility] Comment on above: Performed By: #### P SSI #### [facility] [address] [place], [place], [address] Absolute Neut 3.8 X10 3/uL Normal 2.0-7.7 [facility] Comment on above: Performed By: #### P SSI #### [facility] [address] [place], [place], [address] Basophils/100 WBC (Bld) 0.9 % Normal 0-1 [facility] Comment on above: Performed By: #### P SSI #### [facility] [address] [place], [address] Eosinophils/100 WBC (Bld) 5.2 % High 0-5 [facility] Comment on above: Performed By: #### P SSI #### [facility] [address] [place], [address] Erythrocyte distribution width (RBC) [Ratio] 13.5 % Normal 11.6-14.6 [facility] Comment on above: Performed By: #### P SSI #### [facility] [address] [place], [address] Hematocrit (Bld) [Volume fraction] 45.5 % Normal 37-47 [facility] Comment on above: Performed By: #### P SSI #### [facility] [address] [place], [address] Hemoglobin (Bld) [Mass/Vol] 15.0 g/dL Normal 12.0-15.0 [facility] Comment on above: Performed By: #### P SSI #### [facility] [address] [place], [address] IG% 1.000 High 0.0-0.9 [facility] Comment on above: Result Comment: IG% - Immature Granulocytes (promyelocytes, myelocytes and metamyelocytes) > 1% indicates that a LEFT SHIFT is Present. Performed By: #### P SSI #### [facility] [address] [place], [address] Lymphocytes/100 WBC (Bld) 17.1 % Low 19-41 [facility] Comment on above: Performed By: #### P SSI #### [facility] [address] [place], [address] MCH (RBC) [Entitic mass] 28.4 pg Normal 27.0-32.0 [facility] Comment on above: Performed By: #### P SSI #### [facility] [address] [place], [address] MCHC (RBC) [Mass/Vol] 33.0 g/dL Normal 32-36 [facility] Comment on above: Performed By: #### P SSI #### [facility] [address] [place], [address] MCV (RBC) [Entitic vol] 86.0 fL Normal 81-99 [facility] Comment on above: Performed By: #### P SSI #### [facility] [address] [place], [address] Monocytes/100 WBC (Bld) 10.4 % High 0-10 [facility] Comment on above: Performed By: #### P SSI #### [facility] [address] [place], [address] Neutrophils/100 WBC (Bld) 65.4 % Normal 47-70 [facility] Comment on above: Performed By: #### P SSI #### [facility] [address] [place], [address] Nucleated RBC (Bld) [#/Vol] 0 10*3/uL Normal 0-5 [facility] Comment on above: Performed By: #### P SSI #### [facility] [address] [place], [address] Platelet mean volume (Bld) [Entitic vol] 11.1 fL Normal 6.2-12.0 [facility] Comment on above: Performed By: #### P SSI #### [facility] [address] [place], [address] Platelets (Bld) [#/Vol] 197 10*3/uL Normal 150-450 [facility] Comment on above: Performed By: #### P SSI #### [facility] [address] [place], [address] RBC (Bld) [#/Vol] 5.29 10*6/uL Normal 4.2-5.4 [facility] Comment on above: Performed By: #### P SSI #### [facility] [address] [place], [address] RDW SD 42.0 fl Normal 35.1-43.9 [facility] Comment on above: Performed By: #### P SSI #### [facility] [address] [place], [address] ( WBC (Bld) [#/Vol] 5.8 10*3/uL Normal 4.4-11.0 [facility] Comment on above: Performed By: #### P SSI #### [facility] [address] [place], [address] ( CRPon 02-17-2024 C-REACTIVE PROT < 2.90 Normal 0.0-3.0 [facility] Comment on above: Result Comment: C-Re active Protein (CRP) provides useful information for the diagnosis, therapy and monitoring of inflammatory processes and associated diseases. For the evaluation of Relative Risk for Cardiovascular Disease, a High Sensitivity CRP (HSCRP) should be ordered. Performed By: #### P SSI #### [facility] [address] [place], [address] (682 Comprehensive Metabolic Prof ilon 02-17-2024 Albumin [Mass/Vol] 3.9 g/dL Normal 3.2-5.0 [facility] Comment on above: Performed By: #### P SSI #### [facility] [address] [place], [address] ( Albumin/Globulin [Mass ratio] 1.0 {ratio} Normal 0.9-2.4 [facility] Comment on above: Performed By: #### P SSI #### [facility] [address] [place], [address] ALK P 53 U/L Normal 45-117 [facility] Comment on above: Performed By: #### P SSI #### [facility] [address] [place], [address] ALT [Catalytic activity/Vol] 21 U/L Normal 13-56 [facility] Comment on above: Performed By: #### P SSI #### [facility] [address] [place], [address] AST [Catalytic activity/Vol] 22 U/L Normal 15-37 [facility] Comment on above: Performed By: #### P SSI #### [facility] [address] [place], [address] Bilirubin [Mass/Vol] 0.50 mg/dL Normal 0.20-1.00 [facility] Comment on above: Result Comment: For patients on eltrombopag therapy, use of Dimension [place] TBIL is not recommended. Performed By: #### P SSI #### [facility] [address] [place], [address] BUN/CRE 18.1 RATIO Normal 10-20 [facility] Comment on above: Performed By: #### P SSI #### [facility] [address] [place], [address] CA,Total 9.9 mg/dL Normal 8.5-10.1 [facility] Comment on above: Performed By: #### P SSI #### [facility] [address] [place], [address] Chloride [Moles/Vol] 99 mmol/L Normal 98-107 [facility] Comment on above: Performed By: #### P SSI #### [facility] [address] [place], [address] CO2 [Moles/Vol] 27.0 mmol/L Normal 21.0-32.0 [facility] Comment on above: Performed By: #### P SSI #### [facility] [address] [place], [address] Creatinine [Mass/Vol] 0.94 mg/dL Normal 0.55-1.02 [facility] Comment on above: Result Comment: The validity of the calculated GFR GFRAA in patients over 70 years has not been determined. Clinical correlation is essential. Performed By: #### P SSI #### [facility] [address] [place], [address] EST GFR - AA 73 mL/min Normal >60 [facility] Comment on above: Result Comment: Afri can Lithuanian GFR Calc Performed By: #### P SSI #### [facility] [address] [place], [address] GAP 7 Normal 5-15 [facility] Comment on above: Performed By: #### P SSI #### [facility] [address] [place], [address] GFR/1.73 sq M.predicted among non-blacks MDRD (S/P/Bld) [Vol rate/Area] 61 mL/min/{1.73_m2} Normal >60 [facility] Comment on above: Result Comment: Non- GFR Calc Performed By: #### P SSI #### [facility] [address] [place], [address] Globulin (S) [Mass/Vol] 4.1 g/dL Normal 2.2-4.2 [facility] Comment on above: Performed By: #### P SSI #### [facility] [address] [place], [address] Glucose [Mass/Vol] 87 mg/dL Normal 74-106 [facility] Comment on above: Performed By: #### P SSI #### [facility] [address] [place], [address] Potassium [Moles/Vol] 3.8 mmol/L Normal 3.5-5.1 [facility] Comment on above: Performed By: #### P SSI #### [facility] [address] [place], [address] Sodium [Moles/Vol] 133 mmol/L Low 136-145 [facility] Comment on above: Performed By: #### P SSI #### [facility] [address] [place], [address] T PROT 8.0 g/dL Normal 6.4-8.2 [facility] Comment on above: Performed By: #### P SSI #### [facility] [address] [place], [address] Urea nitrogen [Mass/Vol] 17 mg/dL Normal 7-18 [facility] Comment on above: Performed By: #### P SSI #### [facility] [address] [place], [address] Erythrocyte Sed Rateon 02-16 SED RATE 9 mm/hr Normal 0-30 [facility] Comment on above: Performed By: #### P SSI #### [facility] [address] [place], [address] Hepatitis B Surface Antibody on 02-17-2024 HEP B Surf Ab Non-Reactive Normal [facility] Comment on above: Result Comment: Non Reactive: Inconsistent with immunity less than <10 mIU/mL Reactive: Consistent with immunity greater than or equal to 10 mIU/mL Performed By: #### P SSI #### [facility] [address] [place], [address] (269 Hepatitis B Surface Antigeno n 02-17-2024 HEP B Surf Ag Non-Reactive Normal Nonreactive [facility] Comment on above: Performed By: #### P SSI #### [facility] [address] [place], [address] Hepatitis C Antibodyon 02-16 Hepatitis C AB Non-Reactive Normal Nonreactive [facility] Comment on above: Result Comment: Non Reactive: < 0.8 Equivocal: >/= 0.8 to < 1.0 Reactive: >/= 1.0 The CDC requires that a reactive/equivocal HCV antibody result be sent out for confirmation. HCV Quant by PCR testing. Performed By: #### P SSI #### [facility] [address] [place], [place], [address] Pelvis 1 or 2 Viewson 2023 Pelvis 1 or 2 Views [facility] Imaging Services [address] [place] [address] Pelvis 1 or 2 Views MR#: [id number] Acct: [id number] Name: CONCEPCION DONALDSON Rep #: [id number] : 1940 F 83 From: Lynne melara MD PCP: Dr. Preston Haney MD Status: REG CLI Study: Pelvis 1 or 2 Views Date of Exam: 02/17/24 Exam# [id number] Ordering Dr: [place] [id number] HISTORY: INFLAMMATORY POLYARTHROPATHY. TECHNIQUE: XR Pelvis 1 [...] Preston Haney MD; Dr. Jessica Madrid MD Fish Receiver: Signed Normal [facility] Rheumatoid Factoron 02-17-20 RHEUMATOID FAC < 10.0 Normal <15 [facility] Comment on above: Performed By: #### P SSI #### [facility] [address] [place], [place], [address] Gastroenterology Visit Repor ton 01-23-2024 Gastroenterology Visit Report [facility]astroenterology [address] [place] [address] OFFICE VISIT Date of Service: 01/23/24 MR#: [id number] Acct: [id number] Name: CONCEPCION DONALDSON Rep #: [id number] : 1940 Provider: Gavino Jay DO Age/Sex: 83/F Location: [facility] [place] [place] Status: Signed Intake Vital Signs 09/06/23 09:33 [...] cramping, diarrhea, (more content not included)... Normal [facility] CESAR DIAGNOSTIC LEFTon 2022 [facility] CESAR SCREENING W Mallorie 07-09 [facility] Matthew 06-11-2022 RICH Telephone (Stray BootsAKRE) CONCEPCION DONALDSON ([id number]) 1940 F Date Time Provider Department 06/11/22 [...] Encounter Status:Closed by BLANCA MUNOZ on 06/11/22 [facility] Matthew 02-16-2022 RICH Telephone (GYNGRN) CONCEPCION DONALDSON ([id number]) 1940 F Date Time Provider Department 02/16/22 LAURA SHEPARD During your visit today, we recorded the following information about you: Larua Shepard APRN.[facility]DI 02/16/2022 1:09 PM Signed Advise [...] Encounter Status:Closed by LAURA SHEPARD on 02/16/22 [facility] 01-20-2022 CNPShy Telephone (UROLAG) CONCEPCION DONALDSON ([id number]) 1940 F Date Time Provider Department 01/20/22 LAURA SHEPARD During your visit today, we recorded the following information about you: Farhad Arredondo MA 01/20/2022 8:51 AM Signed Pt called in asking for recent CT scan results. And also pt says she is having UTI symptoms came back. Asking for urine analysis. Urine culture pended APOORVA Rodriguez APRN.[facility] 01/21/2022 10:16 AM Signed Urine culture order signed. Advised patient CT scan does not indicate a kidney stone. There are some findings (moderate hydronephrosis and renal cyst) that have not changed since CT 2017 which I will review with Dr. Munoz and let her know if we need to do anything additional. Laura Shepard APRN.[employer] Lucille Gilliland Roll Changer 01/21/2022 10:19 AM Signed Left message for patient to return call Lucille Gilliland Roll Changer Lucille Gilliland Roll Changer 01/21/2022 11:03 AM Signed Patient notified of [...] contributing. Please inform pt. MD Laura Millan APRN.[facility] 01/22/2022 10:16 AM Signed Spoke with patient regarding Dr. Munoz's message. Urine culture pending. Questions answered. Laura Shepard APRN.[employer] Allergies As of Date: 01/20/2022 Noted Allergy [...] symptoms [R39.9] Order(s):URINE CULTURE [SQURCUL] Order #: [id number] FUTURE Prescriptions as of 01/22/2022 - trimethoprim [...] IBS (irritable (more content not included)... Normal [facility] CT FLANK WO IVCONon 01-09-20 [facility] Matthew 12-18-2021 RICH Telephone (ANNETTE) CONCEPCION DONALDSON ([id number]) 1940 F Date Time Provider Department 12/18/21 [...] Date Reviewed: 12/15/2021 Reviewed by: Lucille Gilliland Roll Changer - Fully Assessed Reason for Visit: Results [...] 12/18/2021 Cmt: (more content not included)... Normal [facility] Bacteria Ur Culton Bacteria identified Cx Nom [...] >8 Trimeth sulfameth S <=0.5 F Abnormal [facility] Comment on above: Performed By: #### 6 30-4 ####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 She has a previous history of an abnormal mammogram. LMP: No LMP recorded. Patient has had a hysterectomy.; Menopause post: Menstrual history: NA; Deliveries: 1 x I have confirmed and edited as necessary, the PFSH obtained by others. Blanca Munoz MD Environmental Field Team Member offered: Patient accepts, visit chaperoned by Lucille [...] steps in treatment Referring Provider: PRESTON HANEY [[id number]] Allergies As of Date: 12/15/2021 Noted Allergy [...] Date Reviewed: 12/15/2021 Reviewed by: Lucille Gilliland Roll Changer - Fully Assessed Reason for Visit: Recurrent U (more content not included)... Normal [facility] Urinalysis complete panel (U )on 12-15-2021 Bacteria LM.HPF (Urine sed) [#/Area] Many Abnormal None Seen [facility] Comment on above: Order Comment: Speci men Type: URINE SPECIMEN Ordering Facility: [facility] Address: [address] [place] [address] Performed By: #### 2 4356-8 #### [facility] CLIA [id number] [address] [facility] Bilirubin Ql (U) Negative Normal Negative [facility] Comment on above: Order Comment: Speci men Type: URINE SPECIMEN Ordering Facility: [facility] Address: [address] [place] [address] Performed By: #### 2 4356-8 #### [facility] CLIA [id number] [address] Clarity (Unsp spec) Turbid Abnormal Clear [facility] Comment on above: Order Comment: Speci men Type: URINE SPECIMEN Ordering Facility: [facility] Address: [address] [place] [address] Performed By: #### 2 4356-8 #### [facility] CLIA [id number] [address] Color (U) Light Yellow Normal yellow [facility] Comment on above: Order Comment: Speci men Type: URINE SPECIMEN Ordering Facility: [facility] Address: [address] [place] [address] Performed By: #### 2 4356-8 #### [facility] CLIA [id number] [address] Epithelial cells LM.HPF (Urine sed) [#/Area] Few Normal [facility] Comment on above: Order Comment: Speci men Type: URINE SPECIMEN Ordering Facility: [facility] Address: [address] [place] [address] Result Comment: Few Performed By: #### 2 4356-8 #### [facility] CLIA [id number] [address] [place] Glucose Test strip (U) [Mass/Vol] Negative Normal Negative [facility] Comment on above: Order Comment: Speci men Type: URINE SPECIMEN Ordering Facility: [facility] Address: [address] [place] [address] Performed By: #### 2 4356-8 #### [facility] CLIA [id number] [address] Hemoglobin Ql (U) Negative Normal Negative [facility] Comment on above: Order Comment: Speci men Type: URINE SPECIMEN Ordering Facility: [facility] Address: [address] [place] [address] Performed By: #### 2 4356-8 #### [facility] CLIA [id number] [address] [facility] Ketones Ql (U) Negative Normal Negative [facility] Comment on above: Order Comment: Speci men Type: URINE SPECIMEN Ordering Facility: [facility] Address: [address] [place] [address] Performed By: #### 2 4356-8 #### [facility] CLIA [id number] [address] OF [place] Leukocyte esterase Test strip Ql (U) 500 Fernie/mL Abnormal Negative [facility] Comment on above: Order Comment: Speci men Type: URINE SPECIMEN Ordering Facility: [facility] Address: [address] [place] [address] Performed By: #### 2 4356-8 #### [facility] CLIA [id number] [address] [place] Nitrite Ql (U) Negative Normal Negative [facility] Comment on above: Order Comment: Speci men Type: URINE SPECIMEN Ordering Facility: [facility] Address: [address] [place] [address] Performed By: #### 2 4356-8 #### [facility] CLIA [id number] [address] [place] pH (U) 6.5 [pH] Normal 5.0-8.0 [facility] Comment on above: Order Comment: Speci men Type: URINE SPECIMEN Ordering Facility: [facility] Address: [address] [place] [address] Performed By: #### 2 4356-8 #### [facility] CLIA [id number] [address] Protein (U) [Mass/Vol] Negative Normal Negative [facility] Comment on above: Order Comment: Speci men Type: URINE SPECIMEN Ordering Facility: [facility] Address: [address] [place] [address] Performed By: #### 2 4356-8 #### [facility] CLIA [id number] [address] RBC LM.HPF (Urine sed) [#/Area] 3-5 /HPF Abnormal 0-3 /HPF [facility] Comment on above: Order Comment: Speci men Type: URINE SPECIMEN Ordering Facility: [facility] Address: [address] [place] [address] Performed By: #### 2 4356-8 #### [facility] CLIA [id number] [address] [place] [address] Specific gravity (U) [Rel density] 1.007 Normal 1.005-1.030 [facility] Comment on above: Order Comment: Speci men Type: URINE SPECIMEN Ordering Facility: [facility] Address: [address] [place] [address] Performed By: #### 2 4356-8 #### [facility] CLIA [id number] [address] Urobilinogen Ql (U) Normal Normal Negative [facility] Comment on above: Order Comment: Speci men Type: URINE SPECIMEN Ordering Facility: [facility] Address: [address] [place] [address] Performed By: #### 2 4356-8 #### [facility] CLIA [id number] [address] WBC LM.HPF (Urine sed) [#/Area] /[HPF] Abnormal 0-5 /HPF [facility] Comment on above: Order Comment: Speci men Type: URINE SPECIMEN Ordering Facility: [facility] Address: [address] [place] [address] Performed By: #### 2 4356-8 #### [facility] CLIA [id number] [address] Yeast.budding LM.HPF (Urine sed) [#/Area] Few Abnormal None Seen [facility] Comment on above: Order Comment: Speci men Type: URINE SPECIMEN Ordering Facility: [facility] Address: [address] [place] [address] Performed By: #### 2 4356-8 #### [facility] CLIA [id number] [address] 12-01-2021 CNPN Telephone (AKPRAD) CONCEPCION DONALDSON ([id number]) 1940 F Date Time Provider Department 12/01/21 [...] Encounter Status:Closed by BLANCA MUNOZ on 12/01/21 [facility] Matthew 09-17-2021 HEYDIN Telephone (AKURFL) CONCEPCION DONALDSON ([id number]) 1940 F Date Time Provider Department 09/17/21 [...] same thing? Can you advise? Jasson Shepard APRN.[employer] 09/17/2021 8:45 AM Signed Spoke with patient. We discussed indications for ultrasound at length. We discussed D-mannose as an alternative to the Hiprex since it is costly. She is using vaginal estrogen cream. Questions answered. Laura Shepard APRN.[facility] Allergies As of Date: 09/17/2021 Noted Allergy [...] Encounter Status:Closed by LAURA SHEPARD on 09/17/21 [facility] Matthew 09-11-2021 CNPN Telephone (ipatter.com) CONCEPCION DONALDSON ([id number]) 1940 F Date Time Provider Department 09/11/21 [...] tabletRfl: 0 URINE CULTURE [SQURCUL] Order #: [id number] STANDING Prescriptions as of 09/11/2021 - ciprofloxacin [...] Status:Closed by BLANCA MUNOZ on 09/11/21 Normal [facility] Bacteria Ur Culton 2 Bacteria identified Cx [...] >8 Trimeth sulfameth S <=0.5 F Abnormal [facility] Comment on above: Performed By: #### 6 30-4 ####[facility] [id number] [address] [place] CNOVon 09-08-2021 CNOV Office Visit (GYNGRN ) CONCEPCION DONALDSON ([id number]) 1940 F Date Time Provider Department 09/08/21 [...] diary reviewed and to be scanned into Exergyn 6. Full incontinence of feces - Schedule GI appointment as previously discussed 7. Alternating constipation and diarrhea - As above #6 8. Vaginal atrophy - Continue vaginal estrogen Follow up with me in 3 months MD Blanca Millan MD 09/08/2021 3:23 PM Addendum Schedule appointment with GI Follow up with Dr. Munoz in 3 months VULVAR BIOPSY Many conditions may cause your safety tech to suggest a vulvar biopsy including vulvar itching, unresponsive to therapy, ulcerated lesions, pigmented lesions, and tumors. The biopsy result will assist your safety tech to devise a treatment plan suitable to [...] if you were to have a regular safety tech examination. 3. The vulvar area will be [...] be available (more content not included)... Normal [facility] SURGICAL PATHOLOGYon CASE REPORT Normal [facility] Comment on above: Order Comment: Speci men Type: TISSUE SPECIMEN Ordering Facility: [facility] Address: [address] [place] [address] Result Comment: Surg ical Pathology Report Case: [id number] Authorizing Provider: Blanca Munoz MD Collected: 09/08/2021 03:55 PM Ordering Location: Urogynecology Received: 09/09/2021 11:06 AM Pathologist: Enrique Koehler MD Specimen: VULVA BIOPSY, left Performed By: #### S #### [facility] CLIA [id number] [address] [place] [address] CLINICAL HISTORY non healing sore on inner surface of left labium minus, h/o lichen planus like dermatitis Normal [facility] Comment on above: Order Comment: Jenniferi teena Type: TISSUE SPECIMEN Ordering Facility: [facility] Address: [address] [place], [place] [address] Performed By: #### S #### [facility] CLIA [id number] [address] [place] [address] DIAGNOSIS COMMENT Sections demonstrate a biopsy of [...] not seen in this biopsy sampling. Normal [facility] Comment on above: Order Comment: Jenniferi men Type: TISSUE SPECIMEN Ordering Facility: [facility] Address: [address] [place] [address] Performed By: #### S #### [facility] CLIA [id number] [address] [place] [address] FINAL DIAGNOSIS Normal [facility] Comment on above: Order Comment: Speci men Type: TISSUE SPECIMEN Ordering Facility: [facility] Address: [address] [place] [address] Result Comment: A. L eft vulva, biopsy: - Benign skin with mild superficial chronic dermal lymphoid infiltrate. See comment. Performed By: #### S #### [facility] CLIA [id number] [address] [place] [address] FINAL PERFORMING LAB Normal [facility] Comment on above: Order Comment: Speci men Type: TISSUE SPECIMEN Ordering Facility: [facility] Address: [address] [place] [address] Result Comment: Diag nostic interpretation performed at [facility], [address] [place] [address] CLIA# [id number] [employer] Developer: Enrique Koehler M.D. Performed By: #### S #### [facility] CLIA [id number] [address] [place] [address] GROSS DESCRIPTION Normal [facility] Comment on above: Order Comment: Speci men Type: TISSUE SPECIMEN Ordering Facility: [facility] Address: [address] [place] [address] Result Comment: A. V ULVA BIOPSY. A. Received in formalin labeled left vulva biopsy is a fleming soft fleming tissue measuring 0.4 x 0.3 x 0.1 cm. The specimen is totally submitted in formalin one cassette. Gross examination performed at [facility], [address] [place] [address] KVB September 09, 2021 11:36 AM Performed By: #### S #### [facility] CLIA [id number] [address] [place] [address] [place] Urinalysis complete panel (U )on 09-08-2021 Bacteria LM.HPF (Urine sed) [#/Area] 4+ /HPF Abnormal None Seen [facility] Comment on above: Order Comment: Speci men Type: URINE SPECIMEN Ordering Facility: [facility] Address: [address] [place] [address] Performed By: #### 2 4356-8 #### [facility] CLIA [id number] [address] Bilirubin Ql (U) Negative Normal Negative [facility] Comment on above: Order Comment: Speci men Type: URINE SPECIMEN Ordering Facility: [facility] Address: [address] [place] [address] Performed By: #### 2 6-8 #### [facility] CLIA [id number] [address] Clarity (Unsp spec) Cloudy Abnormal Clear [facility] Comment on above: Order Comment: Speci men Type: URINE SPECIMEN Ordering Facility: [facility] Address: [address] [place] [address] Performed By: #### 2 6-8 #### [facility] CLIA [id number] [address] Color (U) Yellow Normal Yellow [facility] Comment on above: Order Comment: Speci men Type: URINE SPECIMEN Ordering Facility: [facility] Address: [address] [place] [address] Performed By: #### 2 4356-8 #### [facility] CLIA [id number] [address] Epithelial cells LM.HPF (Urine sed) [#/Area] 10.3 /[HPF] Normal [facility] Comment on above: Order Comment: Speci men Type: URINE SPECIMEN Ordering Facility: [facility] Address: [address] [place] [address] Performed By: #### 2 4356-8 #### [facility] CLIA [id number] [address] Glucose Test strip (U) [Mass/Vol] Negative Normal Negative [facility] Comment on above: Order Comment: Speci men Type: URINE SPECIMEN Ordering Facility: [facility] Address: [address] [place] [address] Performed By: #### 2 4356-8 #### [facility] CLIA [id number] [address] [facility] Hemoglobin Ql (U) Negative Normal Negative [facility] Comment on above: Order Comment: Speci men Type: URINE SPECIMEN Ordering Facility: [facility] Address: [address] [place] [address] Performed By: #### 2 4356-8 #### [facility] CLIA [id number] [address] Hyaline casts (Urine sed) [#/Area] 4-10 /LPF Abnormal 0 /LPF [facility] Comment on above: Order Comment: Speci men Type: URINE SPECIMEN Ordering Facility: [facility] Address: [address] [place] [address] Performed By: #### 2 4356-8 #### [facility] CLIA [id number] [address] Ketones Ql (U) Negative Normal Negative [facility] Comment on above: Order Comment: Speci men Type: URINE SPECIMEN Ordering Facility: [facility] Address: [address] [place] [address] Performed By: #### 2 4356-8 #### [facility] CLIA [id number] [address] Leukocyte esterase Test strip Ql (U) Small Abnormal Negative [facility] Comment on above: Order Comment: Speci men Type: URINE SPECIMEN Ordering Facility: [facility] Address: [address] [place] [address] Performed By: #### 2 4356-8 #### [facility] CLIA [id number] [address] Nitrite Ql (U) Negative Normal Negative [facility] Comment on above: Order Comment: Speci men Type: URINE SPECIMEN Ordering Facility: [facility] Address: [address] [place] [address] Performed By: #### 2 4356-8 #### [facility] CLIA [id number] [address] pH (U) 6.0 [pH] Normal 5.0-8.0 [facility] Comment on above: Order Comment: Speci men Type: URINE SPECIMEN Ordering Facility: [facility] Address: [address] [place] [address] Performed By: #### 2 4356-8 #### [facility] CLIA [id number] [address] Protein (U) [Mass/Vol] Negative Normal Negative [facility] Comment on above: Order Comment: Speci men Type: URINE SPECIMEN Ordering Facility: [facility] Address: [address] [place] [address] Performed By: #### 2 4356-8 #### [facility] CLIA [id number] [address] RBC LM.HPF (Urine sed) [#/Area] 3-5 /HPF Abnormal 0-3 /HPF [facility] Comment on above: Order Comment: Speci men Type: URINE SPECIMEN Ordering Facility: [facility] Address: [address] [place] [address] Performed By: #### 2 4356-8 #### [facility] CLIA [id number] [address] Specific gravity (U) [Rel density] 1.011 Normal 1.005-1.030 [facility] Comment on above: Order Comment: Speci men Type: URINE SPECIMEN Ordering Facility: [facility] Address: [address] [place] [address] Performed By: #### 2 4356-8 #### [facility] CLIA [id number] [address] Urobilinogen Ql (U) 0.2 EU/dL Normal 0.2-1.0 EU/dL [facility] Comment on above: Order Comment: Speci men Type: URINE SPECIMEN Ordering Facility: [facility] Address: [address] [place] [address] Performed By: #### 2 4356-8 #### [facility] CLIA [id number] [address] WBC LM.HPF (Urine sed) [#/Area] 11-25 /HPF Abnormal 0-5 /HPF [facility] Comment on above: Order Comment: Speci men Type: URINE SPECIMEN Ordering Facility: [facility] Address: [address] [place] [address] Performed By: #### 2 4356-8 #### [facility] CLIA [id number] [address] Matthew 08-28-2021 RICH Telephone (ANNETTE) CONCEPCION DONALDSON ([id number]) 1940 F Date Time Provider Department 08/28/21 [...] Status:Closed by LAURA SHEPARD on 08/28/21 Normal [facility] Bacteria Ur Culton Bacteria identified Cx Nom [...] F Trimeth sulfameth S <=0.5 F Abnormal [facility] Comment on above: Performed By: #### 6 30-4 #### [facility] CLIA [id number] [address] [facility] CNOVon 08-25-2021 CNOV Office Visit (GYNGRN ) CONCEPCION DONALDSON ([id number]) 1940 F Date Time Provider Department 08/25/21 [...] process, a PAS/F was performed at the [facility] and compared with appropriate controls. ?The stain is negative for fungal organisms. 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 In the appropriate clinical context, the findings would represent lichen planus or an evolving lichen sclerosis. Clinical correlation remains essential. 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 Normal [facility] Urinalysis complete panel (U )on 08-25-2021 Bacteria LM.HPF (Urine sed) [#/Area] 4+ /HPF Abnormal None Seen [facility] Comment on above: Order Comment: Speci men Type: URINE SPECIMEN Ordering Facility: [facility] Address: [address] [place] [address] Performed By: #### 2 4356-8 #### [facility] CLIA [id number] [address] [place], [place] [id number] [place] Bilirubin Ql (U) Negative Normal Negative [facility] Comment on above: Order Comment: Speci men Type: URINE SPECIMEN Ordering Facility: [facility] Address: [address] [place] [address] Performed By: #### 2 4356-8 #### [facility] CLIA [id number] [address] Clarity (Unsp spec) Turbid Abnormal Clear [facility] Comment on above: Order Comment: Speci men Type: URINE SPECIMEN Ordering Facility: [facility] Address: [address] [place] [address] Performed By: #### 2 4356-8 #### [facility] CLIA [id number] [address] Color (U) Yellow Normal Yellow [facility] Comment on above: Order Comment: Speci men Type: URINE SPECIMEN Ordering Facility: [facility] Address: [address] [place] [address] Performed By: #### 2 4356-8 #### [facility] CLIA [id number] [address] Epithelial cells LM.HPF (Urine sed) [#/Area] 0.6 /[HPF] Normal [facility] Comment on above: Order Comment: Speci men Type: URINE SPECIMEN Ordering Facility: [facility] Address: [address] [place] [address] Performed By: #### 2 4356-8 #### [facility] CLIA [id number] [address] Glucose Test strip (U) [Mass/Vol] Negative Normal Negative [facility] Comment on above: Order Comment: Speci men Type: URINE SPECIMEN Ordering Facility: [facility] Address: [address] [place] [address] Performed By: #### 2 4356-8 #### [facility] CLIA [id number] [address] OF [place] Hemoglobin Ql (U) Moderate Abnormal Negative [facility] Comment on above: Order Comment: Speci men Type: URINE SPECIMEN Ordering Facility: [facility] Address: [address] [place] [address] Performed By: #### 2 4356-8 #### [facility] CLIA [id number] [address] [facility] Hyaline casts (Urine sed) [#/Area] 1-3 /LPF Abnormal 0 /LPF [facility] Comment on above: Order Comment: Speci men Type: URINE SPECIMEN Ordering Facility: [facility] Address: [address] [place] [address] Performed By: #### 2 4356-8 #### [facility] CLIA [id number] [address] Ketones Ql (U) Negative Normal Negative [facility] Comment on above: Order Comment: Speci men Type: URINE SPECIMEN Ordering Facility: [facility] Address: [address] [place] [address] Performed By: #### 2 4356-8 #### [facility] CLIA [id number] [address] Leukocyte esterase Test strip Ql (U) Large Abnormal Negative [facility] Comment on above: Order Comment: Speci men Type: URINE SPECIMEN Ordering Facility: [facility] Address: [facility] [place] [address] Performed By: #### 2 4356-8 #### [facility] CLIA [id number] [address] [place] Nitrite Ql (U) Negative Normal Negative [facility] Comment on above: Order Comment: Speci men Type: URINE SPECIMEN Ordering Facility: [facility] Address: [facility] [place] [address] Performed By: #### 2 4356-8 #### [facility] CLIA [id number] [address] [place] pH (U) 6.5 [pH] Normal 5.0-8.0 [facility] Comment on above: Order Comment: Speci men Type: URINE SPECIMEN Ordering Facility: [facility] Address: [address] [place] [address] Performed By: #### 2 4356-8 #### [facility] CLIA [id number] [address] Protein (U) [Mass/Vol] Negative Normal Negative [facility] Comment on above: Order Comment: Speci men Type: URINE SPECIMEN Ordering Facility: [facility] Address: [address] [place] [address] Performed By: #### 2 4356-8 #### [facility] CLIA [id number] [address] RBC LM.HPF (Urine sed) [#/Area] 6-10 /HPF Abnormal 0-3 /HPF [facility] Comment on above: Order Comment: Speci men Type: URINE SPECIMEN Ordering Facility: [facility] Address: [address] [place] [address] Performed By: #### 2 4356-8 #### [facility] CLIA [id number] [address] Specific gravity (U) [Rel density] 1.011 Normal 1.005-1.030 [facility] Comment on above: Order Comment: Speci men Type: URINE SPECIMEN Ordering Facility: [facility] Address: [address] [place] [address] Performed By: #### 2 4356-8 #### [facility] CLIA [id number] [address] Urobilinogen Ql (U) 0.2 EU/dL Normal 0.2-1.0 EU/dL [facility] Comment on above: Order Comment: Speci men Type: URINE SPECIMEN Ordering Facility: [facility] Address: [address] [place] [address] Performed By: #### 2 4356-8 #### [facility] CLIA [id number] [address] [place] [address] [place] WBC LM.HPF (Urine sed) [#/Area] /[HPF] Abnormal 0-5 /HPF [facility] Comment on above: Order Comment: Speci men Type: URINE SPECIMEN Ordering Facility: [facility] Address: [address] [place] [address] Performed By: #### 2 4356-8 #### [facility] CLIA [id number] 1 [place] [address] [place] Culture, urine Bacteria identified Cx Nom (U) Mixed Gram Pos & Gram Neg Org [facility] Work Phone: No Panel Information [facility] Vital Signs Date Time Vital Sign Value Performing Clinician Facility 01-18-2025 09:48-0400 Body mass index (BMI) [Ratio] 28.28 kg/m2 Byron Herman TRAM DRIVER[employer] Work Phone: [facility] 01-18-2025 09:48-0400 Body weight 73 kg Byron Herman [employer]AM DRIVER[employer] Work Phone: [facility] 01-18-2025 09:48-0400 Diastolic blood pressure 66 mm[Hg] Byron Herman [employer] DRIVER[employer] Work Phone: [facility] 01-18-2025 09:48-0400 Heart rate 92 /min Byron Herman TRAM DRIVER[employer] Work Phone: [facility] 01-18-2025 09:48-0400 Respiratory rate 16 /min Byron Herman TRAM DRIVER[employer] Work Phone: [facility] 01-18-2025 09:48-0400 Systolic blood pressure 126 mm[Hg] Byron Herman [employer]AM DRIVER[employer] Work Phone: [facility] 01-16-2025 10:34-0400 Body mass index (BMI) [Ratio] 28.26 kg/m2 Lexis Abelino PA-C Work Phone: [facility] 01-16-2025 10:34-0400 Body weight 72.94 kg Lexis Abelino PA-C Work Phone: [facility] 01-16-2025 10:34-0400 Diastolic blood pressure 69 mm[Hg] Lexis Abelino PA-C Work Phone: [facility] 01-16-2025 10:34-0400 Heart rate 66 /min Lexis Abelino PA-C Work Phone: [facility] 01-16-2025 10:34-0400 Respiratory rate 17 /min Lexis Abelino PA-C Work Phone: [facility] 01-16-2025 10:34-0400 SaO2% (BldA) [Mass fraction] 97 % Lexis Abelino PA-C Work Phone: [facility] 01-16-2025 10:34-0400 Systolic blood pressure 117 mm[Hg] Lexis Abelino PA-C Work Phone: [facility] 11-14-2024 11:31-0400 Body height 160.[address] Preston Haney MD Work Phone: [facility] 11-14-2024 11:31-0400 Body mass index (BMI) [Ratio] 29.5 kg/m2 Dr. Preston Haney MD Work Phone: [facility] 11-14-2024 11:31-0400 Body weight 75.[address] Preston Haney MD Work Phone: [facility] 11-14-2024 11:31-0400 Diastolic blood pressure 83 mm[Hg] Dr. Preston Haney MD Work Phone: [facility] 11-14-2024 11:31-0400 Heart rate 66 /min Dr. Preston Haney MD Work Phone: [facility] 11-14-2024 11:31-0400 Respiratory rate 16 /min Dr. Preston Haney MD Work Phone: [facility] 11-14-2024 11:31-0400 Systolic blood pressure 172 mm[Hg] Dr. Preston Haney MD Work Phone: [facility] 10-11-2024 08:57-0400 Body mass index (BMI) [Ratio] 27.94 kg/m2 Lexis Abelino PA-C Work Phone: [facility] 10-11-2024 08:57-0400 Body weight 72.12 kg Lexis Abelino PA-C Work Phone: [facility] 10-11-2024 08:57-0400 Diastolic blood pressure 74 mm[Hg] Lexis Abelino PA-C Work Phone: [facility] 10-11-2024 08:57-0400 Heart rate 70 /min Lexis Abelino PA-C Work Phone: [facility] 10-11-2024 08:57-0400 SaO2% (BldA) [Mass fraction] 99 % Lexis Abelino PA-C Work Phone: [facility] 10-11-2024 08:57-0400 Systolic blood pressure 152 mm[Hg] Lexis Abelino PA-C Work Phone: [facility] 10-02-2024 09:01-0400 Diastolic blood pressure 66 mm[Hg] Byron Herman TRAM DRIVER[employer] Work Phone: [facility] 10-02-2024 09:01-0400 Systolic blood pressure 122 mm[Hg] Byron Herman TRAM DRIVER[employer] Work Phone: [facility] 10-02-2024 08:59-0400 Body mass index (BMI) [Ratio] 27.97 kg/m2 Byron Herman TRAM DRIVER[employer] Work Phone: [facility] 10-02-2024 08:59-0400 Body weight 72.2 kg Byron Herman TRAM DRIVER[employer] Work Phone: [facility] 10-02-2024 08:59-0400 Heart rate 80 /min Byron Herman TRAM DRIVER[employer] Work Phone: [facility] 10-02-2024 08:59-0400 Respiratory rate 16 /min Byron Herman TRAM DRIVER[employer] Work Phone: [facility] 09-20-2024 09:26-0400 Body mass index (BMI) [Ratio] 28.12 kg/m2 Lexis Abelino PA-C Work Phone: [facility] 09-20-2024 09:26-0400 Body weight 72.58 kg Lexis Abelino PA-C Work Phone: [facility] 09-20-2024 09:26-0400 Diastolic blood pressure 92 mm[Hg] Lexis Abelino PA-C Work Phone: [facility] 09-20-2024 09:26-0400 Heart rate 71 /min Lexis Abelino PA-C Work Phone: [facility] 09-20-2024 09:26-0400 SaO2% (BldA) [Mass fraction] 95 % Lexis Abelino PA-C Work Phone: [facility] 09-20-2024 09:26-0400 Systolic blood pressure 174 mm[Hg] Lexis Abelino PA-C Work Phone: [facility] 07-20-2024 10:19-0500 Body mass index (BMI) [Ratio] 27.66 kg/m2 Preston Haney MD Work Phone: [facility] 07-20-2024 10:19-0500 Body temperature 97.2 [degF] Preston Haney MD Work Phone: [facility] 07-20-2024 10:19-0500 Body weight 71.4 kg Preston Haney MD Work Phone: [facility] 07-20-2024 10:19-0500 Diastolic blood pressure 82 mm[Hg] Preston Haney MD Work Phone: [facility] 07-20-2024 10:19-0500 Heart rate 77 /min Preston Haney MD Work Phone: [facility] 07-20-2024 10:19-0500 Respiratory rate 16 /min Preston Haney MD Work Phone: [facility] 07-20-2024 10:19-0500 SaO2% (BldA) [Mass fraction] 96 % Preston Haney MD Work Phone: [facility] 07-20-2024 10:19-0500 Systolic blood pressure 152 mm[Hg] Preston Haney MD Work Phone: [facility] 04-24-2024 10:22-0400 Diastolic blood pressure 70 mm[Hg] Byron Herman TRAM DRIVER[employer] Work Phone: [facility] 04-24-2024 10:22-0400 Systolic blood pressure 130 mm[Hg] Byron Herman TRAM DRIVER[employer] Work Phone: [facility] 04-24-2024 10:20-0400 Body height 160.7 cm Byron Herman TRAM DRIVER[employer] Work Phone: [facility] 04-24-2024 10:20-0400 Body mass index (BMI) [Ratio] 27.35 kg/m2 Byron Herman TRAM DRIVER[employer] Work Phone: [facility] 04-24-2024 10:20-0400 Body weight 70.6 kg Byron Herman TRAM DRIVER.[employer] Work Phone: [facility] 04-24-2024 10:20-0400 Heart rate 68 /min Byron Herman TRAM DRIVER.[employer] Work Phone: [facility] 04-24-2024 10:20-0400 Respiratory rate 16 /min Byron Herman TRAM DRIVER[employer] Work Phone: [facility] 01-20-2024 09:54-0400 Body mass index (BMI) [Ratio] 27.72 kg/m2 Byron Herman TRAM DRIVER[employer] Work Phone: [facility] 01-20-2024 09:54-0400 Body weight 72.12 kg Byron Herman TRAM DRIVER.[employer] Work Phone: [facility] 01-20-2024 09:54-0400 Diastolic blood pressure 70 mm[Hg] Byron Herman TRAM DRIVER[employer] Work Phone: [facility] 01-20-2024 09:54-0400 Heart rate 67 /min Byron Herman TRAM DRIVER[employer] Work Phone: [facility] 01-20-2024 09:54-0400 Respiratory rate 16 /min Byron Herman TRAM DRIVER[employer] Work Phone: [facility] 01-20-2024 09:54-0400 SaO2% (BldA) [Mass fraction] 98 % Byron Herman TRAM DRIVER[employer] Work Phone: [facility] 01-20-2024 09:54-0400 Systolic blood pressure 144 mm[Hg] Byron Herman TRAM DRIVER[employer] Work Phone: [facility] 07-20-2023 10:24-0500 Body temperature 97.39 [degF] Preston Haney MD Work Phone: [facility] 07-20-2023 10:24-0500 Body weight 71.67 kg Preston Haney MD Work Phone: [facility] 07-20-2023 10:24-0500 Diastolic blood pressure 66 mm[Hg] Preston Haney MD Work Phone: [facility] 07-20-2023 10:24-0500 Heart rate 72 /min Preston Haney MD Work Phone: [facility] 07-20-2023 10:24-0500 Respiratory rate 18 /min Preston Haney MD Work Phone: [facility] 07-20-2023 10:24-0500 SaO2% (BldA) [Mass fraction] 96 % Preston Haney MD Work Phone: [facility] 07-20-2023 10:24-0500 Systolic blood pressure 132 mm[Hg] Preston Haney MD Work Phone: [facility] 09-14-2022 09:34-0500 Body temperature 97.2 [degF] Miah Mart MD Work Phone: [facility] 09-14-2022 09:34-0500 Body weight 73.85 kg Miah Mart MD Work Phone: [facility] 09-14-2022 09:34-0500 Diastolic blood pressure 84 mm[Hg] Miah Mart MD Work Phone: [facility] 09-14-2022 09:34-0500 Heart rate 80 /min Miah Mart MD Work Phone: [facility] 09-14-2022 09:34-0500 Systolic blood pressure 128 mm[Hg] Miah Mart MD Work Phone: [facility] 08-19-2022 10:27-0500 Body height 160.[address] [place] Haney Work Phone: [facility] 08-19-2022 10:27-0500 Body mass index (BMI) [Ratio] 28.8 kg/m2 Dr. Preston Haney Work Phone: [facility] 08-19-2022 10:27-0500 Body weight 73.[address] Preston Haney Work Phone: [facility] 08-19-2022 10:27-0500 Diastolic blood pressure 78 mm[Hg] Dr. Preston Haney Work Phone: [facility] 08-19-2022 10:27-0500 Heart rate 73 /min Dr. Preston Haney Work Phone: [facility] 08-19-2022 10:27-0500 Systolic blood pressure 139 mm[Hg] Dr. Preston Haney Work Phone: [facility] 08-17-2022 08:26-0500 Body height 161.3 cm Miah Mart MD Work Phone: [facility] 08-17-2022 08:26-0500 Body temperature 97.59 [degF] Miah Mart MD Work Phone: [facility] 08-17-2022 08:26-0500 Body weight 73.21 kg Miah Mart MD Work Phone: [facility] 08-17-2022 08:26-0500 Diastolic blood pressure 78 mm[Hg] Miah Mart MD Work Phone: [facility] 08-17-2022 08:26-0500 Heart rate 78 /min Miah Mart MD Work Phone: [facility] 08-17-2022 08:26-0500 Respiratory rate 100 /min Miah Mart MD Work Phone: [facility] 08-17-2022 08:26-0500 Systolic blood pressure 158 mm[Hg] Miah Mart MD Work Phone: [facility] 06-08-2022 10:01-0500 Body weight 73.03 kg Elisabeth Hoff TRAM DRIVER.PORTABLE TRACK CREW CHIEF Work Phone: [facility] 06-08-2022 10:01-0500 Diastolic blood pressure 60 mm[Hg] Elisabeth Hoff TRAM DRIVER.PORTABLE TRACK CREW CHIEF Work Phone: [facility] 06-08-2022 10:01-0500 Heart rate 72 /min Elisabeth Hoff TRAM DRIVER.PORTABLE TRACK CREW CHIEF Work Phone: [facility] 06-08-2022 10:01-0500 Respiratory rate 16 /min Elisabeth Hoff TRAM DRIVER.PORTABLE TRACK CREW CHIEF Work Phone: [facility] 06-08-2022 10:01-0500 Systolic blood pressure 132 mm[Hg] Elisabeth Hoff TRAM DRIVER.PORTABLE TRACK CREW CHIEF Work Phone: [facility] 05-28-2022 09:57-0500 Body mass index (BMI) [Ratio] 28.8 kg/m2 Dr. Preston Haney Work Phone: [facility] 05-28-2022 09:57-0500 Body weight 73.[address] Preston Haney Work Phone: [facility] 05-28-2022 09:57-0500 Diastolic blood pressure 84 mm[Hg] Dr. Preston Haney Work Phone: [facility] 05-28-2022 09:57-0500 Heart rate 69 /min Dr. Preston Haney Work Phone: [facility] 05-28-2022 09:57-0500 SaO2% (BldA) [Mass fraction] 97 % Dr. Preston Haney Work Phone: [facility] 05-28-2022 09:57-0500 Systolic blood pressure 168 mm[Hg] Dr. Preston Haney Work Phone: [facility] 12-01-2021 10:30-0400 Diastolic blood pressure 70 mm[Hg] Preston Haney MD Work Phone: [facility] 12-01-2021 10:30-0400 Systolic blood pressure 140 mm[Hg] Preston Haney MD Work Phone: [facility] 12-01-2021 09:26-0400 Body weight 73.03 kg Preston Haney MD Work Phone: [facility] 12-01-2021 09:26-0400 Heart rate 62 /min Preston Haney MD Work Phone: [facility] Encounters Encounter Date Encounter Type Care Provider Facility Start: 01-22-2025 ambulatory Hubert Pereira Facility:[facility] Start: 01-18-2025 End: 01-18-2025 Patient encounter procedure Byron Sutton APRN.CNP Work Phone: [facility] [place] Comment on above: Mixed hyperlipidemia (Primary Dx); Primary hypertension; Asymmetric hypertrophy of ventricular septum; Abnormal stress test; Screening for depression; Encounter for screening examination for other mental health and behavioral disorders; Primary osteoarthritis involving multiple joints; Raynaud's disease without gangrene Start: 01-18-2025 End: 01-18-2025 ambulatory BYRON SUTTON Facility:[facility] Start: 01-16-2025 End: 01-16-2025 Patient encounter procedure Lexis Roca PA-C Work Phone: Rheumatology Comment on above: Swelling of right mi ddle finger (Primary Dx); Bilateral hand pain; Pain of right hand; Primary osteoarthritis involving multiple joints; Raynaud's disease without gangrene; History of gastric ulcer Start: 01-16-2025 End: 01-16-2025 ambulatory LEXISJUAN ROCA Facility:[facility] Start: 01-09-2025 End: 01-09-2025 E-mail encounter from caregiver Lexis Roca WILLEM Work Phone: Rheumatology Start: 01-09-2025 End: 01-09-2025 Patient encounter procedure Lexis Roca WILLEM Work Phone: Rheumatology Comment on above: Upcoming Rheumatolog y Appointment Start: 01-09-2025 End: 01-09-2025 ambulatory PRESTON HANEY Facility:[facility] Start: 01-03-2025 ambulatory Hubert Pereira Facility:[facility] Start: 01-03-2025 Non-patient / Non-visit Dr. Keely MEEKS -[facility] Start: 01-03-2025 End: 01-03-[address] Preston Haney MD Work Phone: -Cardiovascular Services Start: 01-03-2025 End: 01-03-[address] Hubert Pereira MD -Cardiovascu lar Services Work Phone: Start: 01-03-2025 End: 01-03-2025 ambulatory Hubert Pereira Facility:[facility] Start: 11-26-2024 End: 11-26-2024 Patient encounter procedure Elia Olivares OD Work Phone: Ophthalmology Comment on above: High risk medication use (Primary Dx); Dry eye syndrome of bilateral lacrimal glands; Pseudophakia of both eyes; Posterior vitreous detachment of both eyes; Prediabetes Start: 11-26-2024 End: 11-26-2024 ambulatory ELIA OLIVARES Facility:[facility] Start: 11-19-2024 End: 11-19-2024 Patient encounter procedure Jv Brooks MD Work Phone: Orthopaedics Comment on above: Arthritis of finger (Primary Dx); Pain of right hand; Swelling of right middle finger; Inflammatory arthritis Start: 11-19-2024 End: 11-19-2024 ambulatory LEXIS ABELINO Facility:[facility] Start: 11-14-2024 End: 11-14-[address] Hubert Pereira MD -[place] Padilla Work Phone: Start: 11-14-2024 End: 11-14-2024 ambulatory Hubert Pereira Facility:[facility] [place] [place] Start: 10-17-2024 End: 10-19-2024 Follow-up encounter Byron Sutton APRN.MUD GRINDER Work Phone: [facility] [place] Start: 10-16-2024 End: 10-16-2024 ambulatory BYRON HERMAN Facility:[facility] Start: 10-11-2024 End: 10-11-2024 ambulatory LEXIS ABELINO Facility:[facility] Start: 10-11-2024 End: 10-11-2024 Patient encounter procedure Lexis Roca PA-C Work Phone: Rheumatology Comment on above: Pain of right hand ( Primary Dx); Long-term use of Plaquenil; Swelling of right middle finger Start: 10-09-2024 End: 10-10-2024 Telephone encounter Lexis TURNER-C Work Phone: [place] Start: 10-05-2024 End: 12-05-2024 Follow-up encounter Elisabeth Hoff APRN.CNS Work Phone: [facility] [place] Start: 10-03-2024 End: 10-03-2024 E-mail encounter from caregiver Lexis Roca PA-C Work Phone: Rheumatology Start: 10-03-2024 End: 10-03-2024 Patient encounter procedure Lexis Roca PA-C Work Phone: Rheumatology Comment on above: Upcoming Rheumatolog y Appointment Start: 10-02-2024 End: 10-02-2024 ambulatory BYRON TATER Facility:[facility] Start: 10-02-2024 End: 10-02-2024 Patient encounter procedure Byron Sutton APRN.MUD GRINDER Work Phone: Internal Medicine [place] Comment on [...] Start: 09-20-2024 End: 09-20-2024 ambulatory LEXIS ABELINO Facility:[facility] Start: 09-20-2024 End: 09-20-2024 Subsequent hospital visit by physician Juma [facility] [place] Gutierrez Work Phone: Radiology Comment on above: Bilateral hand pain [M79.641, M79.642] Start: 09-20-2024 End: 09-20-2024 ambulatory LEXIS ABELINO Facility:[facility] Start: 09-20-2024 End: 09-20-2024 Patient encounter procedure [...] Start: 08-21-2024 End: 08-21-2024 ambulatory PRESTON HANEY Facility:[facility] Start: 08-21-2024 End: 08-21-2024 Subsequent hospital visit by physician Screen Mammo [facility] Comment on above: Breast cancer screen ing by mammogram [Z12.31] Start: 08-20-2024 End: 08-20-2024 E-mail encounter from caregiver Lexis Roca JOSÉ MIGUEL Work Phone: Rheumatology Start: 08-20-2024 End: 08-20-2024 Patient encounter procedure Lexis Abelino VALDEZ Work Phone: Rheumatology Comment on above: Rheumatology Appoint ment Start: 08-16-2024 End: 08-20-2024 Telephone encounter Lexis Roca APRN.CNP Work Phone: Rheumatology Comment on above: Request Outside [facility] Records Start: 08-06-2024 End: 08-13-2024 Telephone encounter Preston Haney MD Work Phone: [facility] [place] Comment on above: Insurance Authorizat ion Start: 07-27-2024 End: 07-27-2024 ambulatory Gavino Friend Facility:[facility] [place] [place] Start: 07-25-2024 End: 07-25-2024 Refill Preston Haney MD Work Phone: [facility] [place] Comment on above: Refill Request Start: 07-20-2024 End: 07-20-2024 Telephone encounter Preston Haney MD Work Phone: [facility] [place] Start: 07-20-2024 End: 07-20-2024 Office outpatient visit [...] 07-20-2024 End: 07-20-2024 ambulatory PRESTON Oxana DENISEAMPAS Facility:[facility] Start: 07-12-2024 End: 07-12-2024 ambulatory BYRON HERMAN Facility:[facility] Start: 05-30-2024 End: 05-30-2024 ambulatory Preston Oxana Debora Facility:[facility] Start: 05-25-2024 End: 05-25-2024 ambulatory Preston Oxana Deniseampcarline Facility:[facility] Start: 04-24-2024 End: 04-24-2024 ambulatory BYRON SUTTON Facility:[facility] Start: 04-24-2024 End: 04-24-2024 Patient encounter procedure Byron Herman TRAM DRIVER.MUD GRINDER Work Phone: [facility] [place] Comment on above: Medicare annual well ness visit, subsequent (Primary Dx); Primary hypertension; Primary osteoarthritis involving multiple joints Start: 04-20-2024 End: 04-20-2024 ambulatory Preston Oxana Denisedeclancarline Facility:[facility] [place] [place] Start: 03-27-2024 End: 03-27-2024 [facility] Start: 02-17-2024 End: 02-17-2024 ambulatory [facility] Facility:[facility] Start: 02-15-2024 ambulatory Mahesh aguila [facility] [place] Start: 02-15-2024 Patient encounter procedure Da janine Bello [facility] [place] Comment on above: Population Health Na v[facility] Start: 01-23-2024 End: 01-23-2024 ambulatory Gavino Jay Facility:[facility] [place] [place] Start: 01-20-2024 End: 01-20-2024 Patient encounter procedure Byron Sutton TRAM DRIVER.MUD GRINDER Work Phone: Internal Medicine [place] Comment on above: Primary hypertension (Primary Dx); Mixed hyperlipidemia; Prediabetes; Varicose veins of right lower extremity with pain; Chronic constipation; Irritable bowel syndrome with both constipation and diarrhea; Encounter for therapeutic drug level monitoring; Vitamin D deficiency Start: 12-20-2023 Telephone encounter Preston lee MD Work Phone: [facility] [place] Comment on above: Orders Start: 08-22-2023 Documentation procedure Mammog jesenia Coordinator [facility] Start: 08-22-2023 Letter encounter Mammography Coordinator [facility] Start: 08-19-2023 End: 08-19-2023 Subsequent hospital visit by physician Screen Mammo [facility] Comment on above: Breast cancer screen ing by mammogram [Z12.31] Start: 07-20-2023 End: 07-20-2023 Office outpatient visit 25 minutes Preston Haney MD Work Phone: [facility] [place] Comment on above: Primary hypertension (Primary Dx); Mixed hyperlipidemia; IFG (impaired fasting glucose); Chronic constipation; Vitamin D deficiency; Redness and swelling of lower leg; Encounter for immunization; Need for shingles vaccine; Breast cancer screening by mammogram Start: 03-29-2023 End: 03-29-2023 Subsequent hospital visit by physician Diagnostic Mammo [facility] Comment on above: Microcalcifications of the breast [R92.0] Start: 12-21-2022 Telephone encounter Miah pastrana MD Work Phone: General Surgery Comment on above: Appointment; Orders Start: 09-14-2022 End: 09-14-2022 Patient encounter procedure Miah Mart MD Work Phone: General Surgery Comment on above: Microcalcifications of the breast (Primary Dx) Start: 08-30-2022 End: 08-30-[address] Preston Haney Work Phone: [facility] Work Phone: Start: 08-30-2022 End: 08-30-[address] Preston Haney Work Phone: [facility]-Breast Imaging - Biopsy/[place] Start: 08-19-2022 End: 08-19-[address] Preston Haney Work Phone: [facility] Start: 08-17-2022 End: 08-17-2022 Patient encounter [...] Subsequent hospital visit by physician Screen Mammo [facility] Comment on above: Encounter for screen ing mammogram for malignant neoplasm of breast [Z12.31] Start: 06-18-2022 Telephone encounter Preston lee MD Work Phone: [facility] Medicine [place] Comment on above: fax information to Ox[place] office Start: 06-11-2022 Telephone encounter Blanca fernandez MD Work Phone: URO/Gynecology Comment on above: Results Start: 06-08-2022 End: 06-08-2022 Office outpatient visit 25 minutes Elisabeth Hoff APRN.CNS Work Phone: [facility] [place] Comment on above: Primary hypertension (Primary Dx); Need for shingles vaccine; Encounter for immunization; Mixed hyperlipidemia; Irritable bowel syndrome with both constipation and diarrhea; IFG (impaired fasting glucose) Start: 05-28-2022 End: 05-28-[address] Preston Haney Work Phone: [facility] Start: 03-05-2022 End: 03-05-[address] Preston Haney Work Phone: [facility] Start: 03-04-2022 End: 03-04-[address] Preston Haney Work Phone: [facility] Work Phone: Start: 03-04-2022 End: 03-04-[address] Preston Haney Work Phone: [facility]-Laboratory, Specimen Start: 02-16-2022 Telephone encounter Laura barfield APRN.MUD GRINDER Work Phone: Urogynecology Comment on above: Results Start: 01-24-2022 Telephone encounter Ailin Naranjo MD Work Phone: URO/Gynecology Comment on above: Results Start: 01-20-2022 Telephone encounter Laura Pitt x TRAM DRIVER.MUD GRINDER Work Phone: Urology Comment on above: Results Start: 01-08-2022 End: 01-08-2022 Subsequent hospital visit by physician [facility] ([facility]) Work Phone: Cat Scan Comment on above: Recurrent UTI [N39.0 ] Start: 12-23-2021 End: 12-23-[address] Preston Haney Work Phone: [facility] Start: 12-21-2021 End: 12-21-[address] Preston Haney Work Phone: [facility] Start: 12-18-2021 Telephone encounter Laura barfield APRN.MUD GRINDER Work Phone: URO/Gynecology Comment on above: Results Start: 12-15-2021 End: 12-15-2021 ambulatory BLANCA MUNOZ Facility:[facility] Start: 12-11-2021 End: 12-11-[address] Preston Haney Work Phone: [facility] Start: 12-01-2021 Telephone encounter Blanca fernandez MD Work Phone: [facility] Comment on above: Results Start: 12-01-2021 End: 12-01-2021 Office outpatient visit 40 minutes Preston Haney MD Work Phone: [facility] Medicine [place] Comment on above: Essential hypertensi on (Primary [...] Start: 09-08-2021 End: 09-08-2021 ambulatory BLANCA MUNOZ Facility[facility] Start: 08-25-2021 End: 08-25-2021 ambulatory BLANCA MUNOZ [facility] Start: 07-15-2021 ambulatory Preston ellison MD Work Phone: [facility] [place] Comment on above: Fall Start: 05-29-2014 End: 02-07-2023 Patient encounter procedure Carlos Noble MD Work Phone: [facility] Procedures Date Procedure Procedure Detail Performing Clinician Start: 01-18-2025 Adult depression scr eening assessment Byron Sutton APRN.MUD GRINDER Work Phone: Start: 01-03-2025 Cardiovascular stres s [...] Detail Author Start: 08-24-2028 Urine microalbumin profile [facility] Start: 01-10-2028 Diabetes Screening Diabetes Screening [facility] Start: 09-21-2027 Diabetes Screening Diabetes Screening [facility] Start: 07-12-2027 Diabetes Screening Diabetes Screening [facility] Start: 01-12-2027 Diabetes Screening Diabetes Screening [facility] Start: 07-13-2026 Diabetes Screening Diabetes Screening [facility] Start: 01-31-2026 Diabetes Screening Diabetes Screening [facility] Start: 01-18-2026 Anxiety Screening Anxiety Screening [facility] Start: 01-18-2026 Depression Screening Depression Screening [facility] Start: 07-20-2025 Covid-19 Vaccine () Covid-19 Vaccine () [facility] Comment on above: Postponed from 03/11/2024 (Declined at t his time) Start: 06-08-2025 DIABETES SCREEN DIABETES SCREEN [facility] Start: 04-23-2025 End: 04-23-2025 Patient encounter procedure 04/23/2025 10:40 AM EDT Office Visit [facility] [place] [address] [facility] [place] [address] Preston Haney MD [address] [place] [address] Medicare Wellness Internal Medicine [place] Comment on above: Medicare Wellness Start: 03-11-2025 Influenza vaccination Influenza Vaccine (#1) [facility] Start: 02-20-2025 End: 02-20-2025 Patient encounter procedure 02/20/2025 10:30 AM EDT Office Visit Rheumatology [address] [place] [address] Lexis Roca PA-C [address] [place] [address] 1 month follow up Rheumatology Comment on above: 1 month follow up Start: 01-19-2025 Anxiety Screening Anxiety Screening [facility] Start: 01-19-2025 Depression Screening Depression Screening [facility] Start: 01-18-2025 End: 01-18-2025 Patient encounter procedure [facility] [place] Comment on above: 6 month follow up Start: 01-16-2025 End: 04-17-2025 Basic metabolic 2000 panel - Serum or Plasma BASIC METABOLIC PANEL Lab Routine Swelling of right middle finger Bilateral hand pain Pain of right hand Primary osteoarthritis involving multiple joints Raynaud's disease without gangrene History of gastric ulcer Expected: 01/16/2025, Expires: 04/17/2025 [facility] Comment on above: Expected: 01/16/2025, Expires: Start: 01-16-2025 End: 04-17-2025 C reactive protein [Mass/volume] in Serum or Plasma C-REACTIVE PROTEIN Lab Routine Pain of right hand Swelling of right middle finger Bilateral hand pain Primary osteoarthritis involving multiple joints Raynaud's disease without gangrene History of gastric ulcer Expected: 01/16/2025, Expires: 04/17/2025 [facility] Comment on above: Expected: 01/16/2025, Expires: Start: 01-16-2025 End: 04-17-2025 CBC panel - Blood by Automated count COMPLETE BLOOD COUNT Lab Routine Swelling of right middle finger Bilateral hand pain Pain of right hand Primary osteoarthritis involving multiple joints Raynaud's disease without gangrene History of gastric ulcer Expected: 01/16/2025, Expires: 04/17/2025 [facility] Comment on above: Expected: 01/16/2025, Expires: Start: 01-16-2025 End: 04-17-2025 Erythrocyte sedimentation rate SEDIMENTATION RATE, WESTERGREN Lab Routine Pain of right hand Swelling of right middle finger Bilateral hand pain Primary osteoarthritis involving multiple joints Raynaud's disease without gangrene History of gastric ulcer Expected: 01/16/2025, Expires: 04/17/2025 [facility] Comment on above: Expected: 01/16/2025, Expires: Start: 01-16-2025 End: 04-17-2025 Urate [Mass/volume] in Serum or Plasma URIC ACID Lab Routine Pain of right hand Swelling of right middle finger Bilateral hand pain Primary osteoarthritis involving multiple joints Raynaud's disease without gangrene History of gastric ulcer Expected: 01/16/2025, Expires: 04/17/2025 [facility] Work Phone: Comment on above: Expected: 01/16/2025, Expires: Start: 01-16-2025 End: 01-16-2025 Patient encounter procedure 01/16/2025 10:30 AM EDT Office Visit Rheumatology [address] [place] [address] Lexis Roca PA-C [address] [place] [address] 3 month follow up Rheumatology Comment on above: 3 month follow up Start: 12-18-2024 End: 03-19-2025 25-hydroxyvitamin D3 [Mass/volume] in Serum or Plasma VITAMIN D 25 HYDROXY Lab Routine Vitamin D deficiency Expected: 12/18/2024 (Approximate), Expires: 03/19/2025 [facility] Comment on above: Expected: 12/18/2024 (Approximate), Expi res: 03/19/2025 Start: 12-18-2024 End: 03-19-2025 CBC panel - Blood by Automated count COMPLETE BLOOD COUNT Lab Routine Primary hypertension Expected: 12/18/2024 (Approximate), Expires: 03/19/2025 [facility] Comment on above: Expected: 12/18/2024 (Approximate), Expi res: 03/19/2025 Start: 12-18-2024 End: 03-19-2025 Comprehensive metabolic 2000 panel - Serum or Plasma COMPREHENSIVE METABOLIC PANEL Lab Routine Primary hypertension IFG (impaired fasting glucose) Hyponatremia Hypokalemia Vitamin D deficiency Expected: 12/18/2024 (Approximate), Expires: 03/19/2025 [facility] Comment on above: Expected: 12/18/2024 (Approximate), Expi res: 03/19/2025 Start: 12-18-2024 End: 03-19-2025 Hemoglobin A1c in Blood HEMOGLOBIN A1C Lab Routine IFG (impaired fasting glucose) Expected: 12/18/2024 (Approximate), Expires: 03/19/2025 [facility] Comment on above: Expected: 12/18/2024 (Approximate), Expi res: 03/19/2025 Start: 12-18-2024 End: 03-19-2025 Lipid 1996 panel - Serum or Plasma LIPID PANEL BASIC Lab Routine Mixed hyperlipidemia Expected: 12/18/2024 (Approximate), Expires: 03/19/2025 [facility] Comment on above: Expected: 12/18/2024 (Approximate), Expi res: 03/19/2025 Start: 12-18-2024 End: 12-18-2024 ambulatory 12/18/2024 7:30 AM EDT Results Only [place] Brewster [facility] [address] [place] [address] Lis[place] Williamson [facility] Start: 11-26-2024 DIABETES SCREEN DIABETES SCREEN [facility] Start: 11-26-2024 End: 11-26-2024 Patient encounter procedure 11/26/2024 8:15 AM EDT Office Visit [facility] Ophthalmology [address] [place] [address] Elia Olivares, OD [address] [place] [address] Pain of right hand [M79.641] Ophthalmology Comment on above: Pain of right hand [M79.641] Start: 11-19-2024 End: 11-19-2024 Patient encounter procedure 11/19/2024 1:30 PM EDT Office Visit Orthopaedics [address] [place] [address] Jv Brooks MD [address] [place] [address] R hand possible gout Orthopaedics Comment on above: R hand possible gout Start: 10-16-2024 End: 10-16-2024 Patient encounter procedure 10/16/2024 11:20 AM EDT Office Visit Cardiology [address] [place] [address] x: Primary hypertension [I10]; WALTERS (dyspnea on exertion) [R06.09]; Atrial septal hypertrophy [I51.7] Cardiology Comment on above: x: Primary hypertension [I10]; WALTERS (dysp tyron on exertion) [R06.09]; Atrial septal hypertrophy [I51.7] Start: 10-11-2024 End: 10-11-2024 Patient encounter procedure 10/11/2024 9:00 AM EDT Office Visit Rheumatology [address] [place] [address] Lexis Roca PA-C [address] [place] [address] 2 week follow up Rheumatology Comment on above: 2 week follow up Start: 10-09-2024 Shingrix Vaccine (3 of 3) Shingrix Vaccine (3 of 3) [facility] Start: 10-09-2024 End: 10-09-2024 Patient encounter procedure 10/09/2024 1:20 PM EDT Appointment Cat Scan [address] [place] [address] Request: CT HAND WO IVCON RIGHT Cat Scan Comment on above: Request: CT HAND WO IVCON RIGHT Start: 10-02-2024 End: 10-02-2024 Patient encounter procedure 10/02/2024 9:00 AM EDT Office Visit [facility] [place] [address] [facility] [place] [address] Byron Sutton APRN.MUD GRINDER [address] [place] [address] blood pressure [facility] Medicine [place] Comment on above: blood pressure Start: 09-20-2024 End: 12-20-2024 C reactive protein [Mass/volume] in Serum or Plasma [facility] Comment on above: Expected: 09/20/2024, Expires: Start: 09-20-2024 End: 12-20-2024 Cyclic citrullinated peptide IgG Ab [Units/volume] in Serum or Plasma [facility] Comment on above: Expected: 09/20/2024, Expires: Start: 09-20-2024 End: 12-20-2024 Erythrocyte sedimentation rate [facility] Comment on above: Expected: 09/20/2024, Expires: Start: 09-20-2024 End: 12-20-2024 Extractable nuclear Ab panel - Serum [facility] Work Phone: Comment on above: Expected: 09/20/2024, Expires: Start: 09-20-2024 End: 12-20-2024 Rheumatoid factor [Units/volume] in Serum or Plasma [facility] Comment on above: Expected: 09/20/2024, Expires: Start: 09-20-2024 End: 09-20-2024 Patient encounter procedure 09/20/2024 9:30 AM EDT Office Visit Rheumatology [address] [place] [address] Lexis Roca PA-C [address] [place] [address] 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] Rheumatology Comment on above: Primary osteoarthritis involving multipl e joints [M15.0] Start: 08-23-2024 End: 08-23-2024 Patient encounter procedure Rheumatology Comment on above: Primary osteoarthritis involving multipl e joints [M15.0] Start: 08-21-2024 End: 08-21-2024 Patient encounter procedure 08/21/2024 9:10 AM EST Appointment Mammogram [address] [place] [address] Breast cancer screening by mammogram [Z12.31] Mammogram Comment on above: Breast cancer screening by mammogram [Z1 2.31] Start: 07-20-2024 Covid-19 Vaccine () Covid-19 Vaccine () [facility] Comment on above: Postponed from 03/11/2023 (Declined at t his time) Start: 07-20-2024 End: 07-20-2024 Patient encounter procedure 07/20/2024 9:40 AM EST Office Visit Internal Medicine [place] [address] [facility] [place] [address] Preston Haney MD [address] [facility] [place] [address] 6 month follow up Internal Medicine [place] Comment on above: 6 month follow up Start: 07-16-2024 End: 10-15-2024 25-hydroxyvitamin D3 [Mass/volume] in Serum or Plasma VITAMIN D 25 HYDROXY Lab Routine Vitamin D deficiency Expected: 07/16/2024, Expires: 10/15/2024 [facility] Comment on above: Expected: 07/16/2024, Expires: Start: 07-16-2024 End: 10-15-2024 CBC W Auto Differential panel - Blood COMPLETE BLOOD COUNT AND DIFFERENTIAL Lab Routine Encounter for therapeutic drug level monitoring Expected: 07/16/2024, Expires: 10/15/2024 [facility] Work Phone: Comment on above: Expected: 07/16/2024, Expires: Start: 07-16-2024 End: 10-15-2024 Comprehensive metabolic 2000 panel - Serum or Plasma COMPREHENSIVE METABOLIC PANEL Lab Routine Encounter for therapeutic drug level monitoring Expected: 07/16/2024, Expires: 10/15/2024 [facility] Comment on above: Expected: 07/16/2024, Expires: Start: 07-16-2024 End: 10-15-2024 Hemoglobin A1c in Blood HEMOGLOBIN A1C Lab Routine Prediabetes Expected: 07/16/2024, Expires: 10/15/2024 [facility] Comment on above: Expected: 07/16/2024, Expires: Start: 07-16-2024 End: 10-15-2024 Lipid 1996 panel - Serum or Plasma LIPID PANEL BASIC Lab Routine Mixed hyperlipidemia Expected: 07/16/2024, Expires: 10/15/2024 [facility] Comment on above: Expected: 07/16/2024, Expires: Start: 07-11-2024 Medicare Advantage Annual Wellness Visit Medicare Advantage Annual Wellness Visit [facility] Start: 05-02-2024 DIABETES SCREEN DIABETES SCREEN [facility] Start: 04-24-2024 End: 04-24-2024 Patient encounter procedure [facility] [place] Comment on above: 3 month follow up Annual Wellness - 3 month follow up Start: 03-11-2024 Covid-19 Vaccine ( season) Covid-19 Vaccine () [facility] Start: 03-11-2024 Influenza vaccination [facility] Start: 01-20-2024 End: 01-20-2024 Patient encounter procedure 01/20/2024 10:00 AM EDT Office Visit Internal Medicine [place] [address] [place], [place] [id number] Byron Sutton APRN.MUD GRINDER [address] [place], [place] [address] 6 Month follow up Internal Medicine [place] Comment on above: 6 Month follow up Start: 01-18-2024 End: 04-18-2024 25-hydroxyvitamin D3 [Mass/volume] in Serum or Plasma VITAMIN D 25 HYDROXY Lab Routine Vitamin D deficiency Expected: 01/18/2024 (Approximate), Expires: 04/18/2024 [facility] Work Phone: Comment on above: Expected: 01/18/2024 (Approximate), Expi res: 04/18/2024 Start: 01-18-2024 End: 04-18-2024 CBC panel - Blood by Automated count CBC Lab Routine Primary hypertension Expected: 01/18/2024 (Approximate), Expires: 04/18/2024 [facility] Work Phone: Comment on above: Expected: 01/18/2024 (Approximate), Expi res: 04/18/2024 Start: 01-18-2024 End: 04-18-2024 Comprehensive metabolic 2000 panel - Serum or Plasma COMP METABOLIC PANEL Lab Routine Primary hypertension IFG (impaired fasting glucose) Expected: 01/18/2024 (Approximate), Expires: 04/18/2024 [facility] Work Phone: Comment on above: Expected: 01/18/2024 (Approximate), Expi res: 04/18/2024 Start: 01-18-2024 End: 04-18-2024 Hemoglobin A1c in Blood HGB A1C Lab Routine IFG (impaired fasting glucose) Expected: 01/18/2024 (Approximate), Expires: 04/18/2024 [facility] Work Phone: Comment on above: Expected: 01/18/2024 (Approximate), Expi res: 04/18/2024 Start: 01-18-2024 End: 04-18-2024 Lipid 1996 panel - Serum or Plasma LIPID PANEL BASIC Lab Routine Mixed hyperlipidemia Expected: 01/18/2024 (Approximate), Expires: 04/18/2024 [facility] Work Phone: Comment on above: Expected: 01/18/2024 (Approximate), Expi res: 04/18/2024 Start: 07-11-2023 Advance Directive Discussion Advance Directive Discussion [facility] Start: 07-11-2023 Behavioral Health Screening Behavioral Health Screening [facility] Start: 06-08-2023 BP CONTROLLED (<130/80) BP CONTROLLED (<130/80) [facility] Start: 03-11-2023 Covid-19 Vaccine ( season) Covid-19 Vaccine ( season) [facility] Start: 03-11-2023 Influenza vaccination Influenza Vaccine (#1) [facility] Start: 12-15-2022 BP CONTROLLED (<130/80) BP CONTROLLED (<130/80) [facility] Start: 12-06-2022 End: 02-05-2023 CBC W Auto Differential panel - Blood CBC + DIFF Lab Routine Primary hypertension Irritable bowel syndrome with both constipation and diarrhea Expected: 12/06/2022 (Approximate), Expires: 02/05/2023 [facility] Work Phone: Comment on above: Expected: 12/06/2022 (Approximate), Expi res: 02/05/2023 Start: 12-06-2022 End: 02-05-2023 Comprehensive metabolic 2000 panel - Serum or Plasma COMP METABOLIC PANEL Lab Routine Primary hypertension Mixed hyperlipidemia Irritable bowel syndrome with both constipation and diarrhea IFG (impaired fasting glucose) Expected: 12/06/2022 (Approximate), Expires: 02/05/2023 [facility] Work Phone: Comment on above: Expected: 12/06/2022 (Approximate), Expi res: 02/05/2023 Start: 12-06-2022 End: 02-05-2023 Hemoglobin A1c in Blood HGB A1C Lab Routine IFG (impaired fasting glucose) Expected: 12/06/2022 (Approximate), Expires: 02/05/2023 [facility] Work Phone: Comment on above: Expected: 12/06/2022 (Approximate), Expi res: 02/05/2023 Start: 12-06-2022 End: 02-05-2023 Lipid 1996 panel - Serum or Plasma LIPID PANEL BASIC Lab Routine Mixed hyperlipidemia Expected: 12/06/2022 (Approximate), Expires: 02/05/2023 [facility] Work Phone: Comment on above: Expected: 12/06/2022 (Approximate), Expi res: 02/05/2023 Start: 12-01-2022 Adult depression screening assessment DEPRESSION SCREENING [facility] Start: 12-01-2022 ANNUAL PCP TEAM CHRONIC DISEASE VISIT ANNUAL PCP TEAM CHRONIC DISEASE VISIT [facility] Start: 07-18-2022 ANNUAL PCP TEAM CHRONIC DISEASE VISIT ANNUAL PCP TEAM CHRONIC DISEASE VISIT [facility] Start: 07-12-2022 SHINGRIX VACCINE (2 of 3) SHINGRIX VACCINE (2 of 3) [facility] Comment on above: Postponed from 07/06/2013 (Insurance Cov erage) Start: 07-11-2022 ADVANCE DIRECTIVE DISCUSSION ADVANCE DIRECTIVE DISCUSSION [facility] Start: 07-11-2022 DEPRESSION ASSESSMENT DEPRESSION ASSESSMENT [facility] Start: 06-08-2022 End: 08-08-2022 CBC W Auto Differential panel - Blood [facility] Work Phone: Comment on above: Expected: 06/08/2022, Expires: 3 Start: 06-08-2022 End: 08-08-2022 Comprehensive metabolic 2000 panel - Serum or Plasma [facility] Work Phone: Comment on above: Expected: 06/08/2022, Expires: 3 Start: 06-08-2022 End: 08-08-2022 Hemoglobin A1c in Blood [facility] Work Phone: Comment on above: Expected: 06/08/2022, Expires: 3 Start: 06-08-2022 End: 08-08-2022 LIPID PANEL, NONFASTING [facility] Work Phone: Comment on above: Expected: 06/08/2022, Expires: 3 Start: 03-11-2022 Influenza vaccination INFLUENZA (#1) [facility] Start: 01-21-2022 End: 01-20-2023 Bacteria identified in Urine by Culture URINE CULTURE Microbiology Routine UTI symptoms Expected: 01/21/2022 (Approximate), Expires: 01/20/2023 [facility] Work Phone: Comment on above: Expected: 01/21/2022 (Approximate), Expi res: 01/20/2023 Start: 10-22-2021 SHINGRIX VACCINE (2 of 3) SHINGRIX VACCINE (2 of 3) [facility] Comment on above: Postponed from 07/06/2013 (Insurance Cov erage) Start: 10-18-2021 Adult depression screening assessment DEPRESSION SCREENING [facility] Start: 09-07-2021 COVID-19 VACCINE (4 - Booster for Pfizer series) COVID-19 VACCINE (4 - Booster for Pfizer series) [facility] Start: 07-11-2021 ADVANCE DIRECTIVE DISCUSSION ADVANCE DIRECTIVE DISCUSSION [facility] Start: 03-31-2021 BP CONTROLLED (<130/80) BP CONTROLLED (<130/80) [facility] Start: 2016 RSV Vaccine (1 - 1-dose 75+ series) RSV Vaccine (1 - 1-dose 75+ series) [facility] Start: 07-06-2013 Shingrix Vaccine (1 of 2) Shingrix Vaccine (1 of 2) [facility] Start: 07-06-2013 SHINGRIX VACCINE (2 of 3) SHINGRIX VACCINE (2 of 3) [facility] Start: 2001 RSV Vaccine (1 - 1-dose 60+ series) RSV Vaccine (1 - 1-dose 60+ series) [facility] Bacteria identified in Urine by Culture URINE CULTURE Microbiology Routine Dysuria Ordered: 01/24/2022 [facility] Work Phone: Comment on above: Ordered: 01/24/2022 End: 10-24-2025 CT Hand - right WO contrast CT HAND WO IVCON RIGHT Radiology Routine Pain of right hand 1 Occurrences starting 09/24/2024 until 10/24/2025 [facility] Work Phone: Comment on above: 1 Occurrences starting 09/24/2024 until 10/24/2025 DBT Breast - bilater al screening CESAR SCREENING [facility] R[facility]AS Radiology Routine Breast cancer screening by mammogram 08/19/2023 9:57 AM EST [facility] Work Phone: End: 08-18-2024 DBT Breast - bilateral screening CESAR SCREENING [facility] Radiology Routine Breast cancer screening by mammogram 1 Occurrences starting 07/20/2023 until 08/18/2024 [facility] Work Phone: Comment on above: 1 Occurrences starting 07/20/2023 until 08/18/2024 End: 08-19-2025 DBT Breast - bilateral screening CESAR SCREENING [facility] Radiology Routine Breast cancer screening by mammogram 1 Occurrences starting 07/20/2024 until 08/19/2025 [facility] Work Phone: Comment on above: 1 Occurrences starting 07/20/2024 until 08/19/2025 End: 10-02-2025 Echocardiography ECHO Cardiology Routine Primary hypertension WALTERS (dyspnea on exertion) Asymmetric hypertrophy of ventricular septum 1 Occurrences starting 10/02/2024 until 10/02/2025 [facility] Work Phone: Comment on above: 1 Occurrences starting 10/02/2024 until 10/02/2025 End: 01-22-2024 CESAR DIAGNOSTIC LEFT CESAR DIAGNOSTIC LEFT Radiology Routine Microcalcifications of the breast 1 Occurrences starting 12/23/2022 until 01/22/2024 [facility] Work Phone: Comment on above: 1 Occurrences starting 12/23/2022 until 01/22/2024 End: 10-20-2025 XR Foot - bilateral AP and Lateral and oblique XR FOOT GENERAL 3V AP/LAT/OBL BILATERAL Radiology Routine Primary osteoarthritis involving multiple joints Raynaud's disease without gangrene History of gastric ulcer Bilateral hand pain 1 Occurrences starting 09/20/2024 until 10/20/2025 [facility] Comment on above: 1 Occurrences starting 09/20/2024 until 10/20/2025 XR Foot - bilateral AP and Lateral and oblique XR FOOT GENERAL 3V AP/LAT/OBL BILATERAL Radiology Routine Primary osteoarthritis involving multiple joints Raynaud's disease without gangrene Shortness of breath Neuropathy History of gastric ulcer Bilateral hand pain 09/20/2024 11:00 AM EDT [facility] End: 10-20-2025 XR Hand - bilateral PA and Lateral and Oblique XR HAND GENERAL 3V PA/LAT/OBL BILATERAL Radiology Routine Bilateral hand pain 1 Occurrences starting 09/20/2024 until 10/20/2025 [facility] Comment on above: 1 Occurrences starting 09/20/2024 until 10/20/2025 XR Hand - bilateral PA and Lateral and Oblique XR HAND GENERAL 3V PA/LAT/OBL BILATERAL Radiology Routine Bilateral hand pain 09/20/2024 11:01 AM EDT [facility] Immunizations Immunization Date Immunization Notes Care Provider Ricki gavin 10-20-2024 zoster vaccine recombinant Byron Sutton TRAM DRIVER.MUD GRINDER Work Phone: [facility] 08-14-2024 respiratory syncytia l virus (RSV) vaccine, bivalent (ABRYSVO) Elia Olivares OD Work Phone: [facility] 08-14-2024 zoster vaccine recombinant Elia Olivares OD Work Phone: [facility] 05-07-2024 influenza, high dose seasonal, preservative-free Preston Haney MD Work Phone: [facility] 05-07-2024 influenza virus vacc ine, unspecified formulation Lexis Roca PA-C Work Phone: [facility] 05-11-2023 influenza, high dose seasonal, preservative-free Screen [facility] 05-11-2023 influenza virus vacc ine, unspecified formulation Byron Sutton APRN.MUD GRINDER Work Phone: [facility] 06-06-2022 COVID-19 booster vaccine, age 12+ yr, bivalent (PFIZER-BIONTECH) Elisabeth Hoff TRAM DRIVER.PORTABLE TRACK CREW CHIEF Work Phone: [facility] Work Phone: 04-24-2022 influenza, high-dose , quadrivalent vaccine (FLUZONE HIGH DOSE QUADRIVALENT) Elisabeth Hoff APRN.PORTABLE TRACK CREW CHIEF Work Phone: [facility] Work Phone: 04-24-2022 influenza virus vacc ine, unspecified formulation Diagnostic [facility] 05-04-2021 influenza, high-dose , quadrivalent vaccine (FLUZONE HIGH DOSE QUADRIVALENT) Carlos Noble MD Work Phone: [facility] 09-24-2020 COVID-19 vaccine, ag e 12+ yr (PFIZER-BIONTECH - PURPLE TOP) Carlos See Work Phone: [facility] 09-01-2020 COVID-19 vaccine, ag e 12+ yr (PFIZER-BIONTECH - PURPLE TOP) Carlos See Work Phone: [facility] 05-01-2020 influenza virus vacc ine, unspecified formulation Carlos See MD Work Phone: [facility] 04-15-2019 influenza virus vacc ine, unspecified formulation Carlos See MD Work Phone: [facility] 04-15-2019 influenza, high dose seasonal, preservative-free Carlos See MD Work Phone: [facility] 08-24-2018 tetanus toxoid, redu diana diphtheria toxoid, and acellular pertussis vaccine, adsorbed Carlos See Work Phone: [facility] 04-16-2018 influenza virus vacc ine, unspecified formulation Carlos See Work Phone: [facility] 04-24-2016 influenza, high dose seasonal, preservative-free Carlos See Work Phone: [facility] 06-16-2015 pneumococcal conjuga te vaccine, 13 valent Carlos See Work Phone: [facility] 04-14-2015 influenza, seasonal, injectable Carlos See Work Phone: [facility] 04-14-2014 influenza, seasonal, injectable Carlos See Work Phone: [facility] 05-11-2013 zoster vaccine, live Carlos lundberg MD Work Phone: [facility] 04-10-2013 influenza virus vacc ine, unspecified formulation Carlos See Work Phone: [facility] 04-27-2012 influenza virus vacc ine, unspecified formulation Carlos See Work Phone: [facility] Work Phone: 04-21-2010 influenza virus vacc ine, unspecified formulation Carlos See Work Phone: [facility] 05-08-2009 influenza virus vacc ine, unspecified formulation Carlos See MD Work Phone: [facility] Work Phone: 07-07-2007 diphtheria and tetan us toxoids, adsorbed for pediatric use Carlos See MD Work Phone: [facility] Work Phone: 07-07-2007 pneumococcal polysaccharide vaccine, 23 valent Carlos See MD Work Phone: [facility] Work Phone: 05-16-2007 influenza virus vacc ine, unspecified formulation Carlos See MD Work Phone: [facility] 06-14-2006 influenza virus vacc ine, unspecified formulation Carlos See Work Phone: [facility] Work Phone: 06-10-2002 influenza virus vacc ine, unspecified formulation Carlos See Work Phone: [facility] Work Phone: 03-11-2000 pneumococcal polysaccharide vaccine, 23 valent Carlos See Work Phone: [facility] Work Phone: 04-15-1998 diphtheria and tetan us toxoids, adsorbed for pediatric use Carlos See Work Phone: [facility] Work Phone: Payers Date Payer Category Payer Medicare (Managed Care) O ROSA MARIA DVANTAGE O [id number] 2024 Medicare [id number] 2024 Self-pay [id number] 2022 Unknown [id number] 2022 Unknown [id number] 2021 Medicare HUMANA MEDICARE HUMANA MEDICARE PPO [id number] 2021-Present [phone] [place] [address] PPO [id number] 2021 Medicare [id number] 2021 Medicare [id number] Private Health Insurance [id number] Private Health Insurance 1CM [id number] Unknown [id number] Unknown [id number] Unknown [id number] Unknown [id number] Unknown [id number] Unknown [id number] Unknown [id number] Unknown [id number] Unknown [id number] Unknown [id number] Unknown [id number] Unknown [id number] Unknown [id number] Social History Date Type Detail Facility Start: 09-06-2011 End: 06-08-2022 Tobacco smoking status NHIS Never smoked tobacco [facility] Start: 10-08-2021 End: 01-18-2025 Alcohol intake Current non-drinker of alcohol (finding) [facility] Start: 12-20-2019 End: 06-07-2022 History SDOH Alcohol Frequency 1 [facility] Start: 12-20-2019 End: 03-26-2020 History SDOH Alcohol Std Drinks 98 [facility] Start: 08-20-2019 End: 06-07-2022 History SDOH Social Connections Phone 5 [facility] Start: 08-20-2019 End: 06-07-2022 History SDOH Social Connections Meetings 3 [facility] Start: 03-26-2020 History SDOH Physica l Activity DPW 6 [facility] Start: 08-20-2019 End: 06-07-2022 History SDOH Stress 2 [facility] Start: 03-26-2020 Education 12 [facility] Start: 1940 Sex Assigned At Female C [facility] Start: 09-19-2021 End: 06-08-2022 Exposure to SARS-CoV-2 (event) Not sure [facility] Start: 12-11-2021 End: 08-19-2022 Tobacco smoking status NHIS Unknown if ever smoked [facility] Start: 09-06-2011 End: 06-08-2022 Tobacco use and exposure Smokeless tobacco non-user [facility] Start: 06-07-2022 History SDOH Alcohol Std Drinks 0 [facility] Start: 06-07-2022 History SDOH Financial 4 [facility] Start: 06-07-2022 End: 02-07-2023 History of Social function [facility] Start: 06-07-2022 End: 02-07-2023 Social connection and isolation panel [facility] Do you belong to any clubs or organizations such as mu-ism groups, unions, fraternal or athletic groups, or school groups? Yes [facility] Are you now , , , , never or living with a partner? [facility] How often to you hav e a drink containing alcohol? Never [facility] How many standard dr inks containing alcohol do you have on a typical day? Patient does not drink [facility] How hard is it for y ou to pay for the very basics like food, housing, medical care, and heating Not very hard [facility] Do you feel stress - tense, restless, nervous, or anxious, or unable to sleep at night because your mind is troubled all the time - these days [OSQ] Only a little [facility] (I/We) worried akilah er (my/our) food would run out before (I/we) got money to buy more. Never true [facility] In the past 12 month s, was there a time when you were not able to pay the mortgage or rent on time? No [facility] Start: 02-12-2019 Gender identity Identifies as female gender (finding) [facility] Functional Status Date Assessment Result Facility 12-05-2014 Are you deaf, or do you have serious difficulty hearing No 12/05/2014 12:33 PM Cayla Simpson RN No [facility] Work Phone: 12-05-2014 Are you blind, or do you have serious difficulty seeing, even when wearing glasses No 12/05/2014 12:33 PM Cayla Simpson RN No [facility] 12-05-2014 Do you have serious difficulty walking or climbing stairs No 12/05/2014 12:33 PM Cayla Simpson RN No [facility] 12-05-2014 Do you have difficul ty dressing or bathing No 12/05/2014 12:33 PM EDCayla Cohen RN No [facility] 12-05-2014 Because of a physica l, mental, or emotional condition, do you have difficulty doing errands alone such as visiting a physician's office or shopping No 12/05/2014 12:33 PM EDCayla Cohen RN No [facility] Mental Status Date Assessment Result Facility 12-05-2014 Because of a physica l, mental, or emotional condition, do you have serious difficulty concentrating, remembering, or making decisions No 12/05/2014 12:33 PM EDCayla Cohen RN No [facility] Clinical Notes 04-21-2010 to 01-18-2025 Byron Sutton APRN.MUD GRINDER - 01/18/2025 9:52 AM Lexis Jaramillo PA-C - 01/16/2025 10:39 AM Elia Phillips OD - 11/26/2024 10:26 AM EDTPatient Instructions Note Date & Type Note Facility 01-18-2025 Note HNO ID: [id number] Author: BYRON SUTTON APRN.MUD GRINDER Service: ? Author Type: Nurse Practitioner Type: [...] as 56%. Based on these findings, her hospice rn, Dr. 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 She also mentions ongoing [...] [Celecoxib] Rash Grass Pollen scratchy throat Nitrofurantoin [place]* Intolerance Stomach pain Penicillins Hives Sucralfate Rash Generalized red rash; itching back of neck. 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 [facility] 01-18-2025 History of Present illness Narrative [...] as 56%. Based on these findings, her hospice rn, Dr. 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 She also mentions ongoing [...] [Celecoxib] Rash Grass Pollen scratchy throat Nitrofurantoin [place]* Intolerance Stomach pain Penicillins Hives Sucralfate Rash Generalized red rash; itching back of neck. 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 - Continue current management. 8. Raynaud's disease without gangrene (I73.00) Follows with rheumatology Recording using [employer] software for draft documentation of the visit was discussed with the patient/authorized computer help desk representative; all questions welcomed and answered. Patient/authorized computer help desk representative agreed to proceed Portions of this note [...] Byron Sutton APRN-HEYDI documented in this encounter [facility] 01-16-2025 Note HNO ID: [id number] Author: LEXIS ROCA PA-C Service: ? Author Type: Physician Instructional Aide Type: Progress Notes Filed: 01/16/2025 13:24 Note Text: Rheumatology FOLLOW UP VISIT Date of Service: 01/16/2025 Patient: Concepcion Donaldson Medical Record: [id number] Primary Care Physician: Preston Haney MD Last Rheumatology visit: None at [facility] History of Present Illness Concepcion Donaldson is [...] significant for CAD; her father had an [place], her mother had CHF, and her brother also had an [place]. Pain Evaluation 08/19/2024 09/20/2024 11/19/2024 01/10/2025 01/16/2025 [...] Melena, Diarrhea, Heartbur (more content not included)... [facility] 01-16-2025 History of Present illness Narrative Images from the original note were not included. Rheumatology FOLLOW UP VISIT Date of Service: 01/16/2025 Patient: Concepcion Donaldson Medical Record: [id number] Primary Care Physician: Preston Haney MD Last Rheumatology visit: None at [facility] History of Present Illness Concepcion Donaldson is [...] significant for CAD; her father had an [place], her mother had CHF, and her brother also had an [place]. Pain Evaluation 08/19/2024 09/20/2024 11/19/2024 01/10/2025 01/16/2025 [...] Date PRAKASH PH PLACEMENT W/O ENDOSCOPY 09/03/[address] [facility] [address] Cabello CHOLECYSTECTOMY 1982 COLONOSCOPY FLX DX [...] 20 mm/hr 1 3 2 Sed Rate, [place] 0 - 20 mm/hr 18 Latest Ref [...] AI <0.2 Sm Antibody Negative Negative Ribosomal PSYCHOLOGICAL OPERATIONS OFFICER Ab <1.0 AI <0.2 Ribosomal PSYCHOLOGICAL OPERATIONS OFFICER Qualitative Negative Negative Chromatin Ab <1.0 AI <0.2 Chromatin Ab Qual Negative Negative SSA Antibody Qual Negative Negative Anti-SSA <1.0 AI <0.2 Anti-SSB <1.0 AI <0.2 PSYCHOLOGICAL OPERATIONS OFFICER Antibody QUAL Negative Negative Scleroderma Ab Qual [...] result) Impression: IMPRESSION: Degenerative changes as described. Fish Receiver: JUAN J Transcribe Date/Time: Sep 24 2024 [...] to the Rheumatology activity and [facility]. Joint Exam 01/16/2025 No joint [...] with inflammatory arthritis/seronegative rheumatoid arthritis by local yarn twister. Prior lab testing from February 17, 2024 [...] which included preparing to see the patient, [id number] patient care, completing clinical documentation, obtaining and/or reviewing separately obtained history, performing a medically appropriate examination, counseling and educating the patient/family/caregiver, and ordering medications, tests, or procedures. Lexis Roca PA-C Rheumatology Date: October 11, 2024 Time: 1:24 PM documented in this encounter [facility] 11-26-2024 Note HNO ID: [id number] Author: ELIA OLIVARES OD Service: ? Author Type: FINANCIAL REPORTING SPECIALIST Type: Progress Notes Filed: 11/26/2024 10:33 Note [...] treatment regimen with primary care doctor and/or collar separator to maintain optimum levels as they are important to avoid ocular complications Encouraged patient to call the office immediately with any changes to vision or visual concerns Urged patient to get annual plaquenil testing and follow-up with Dr. Curiel for exams (me as needed) Elia Olivares, OD November 26, 2024 10:28 AM [facility] 11-26-2024 Note Date of Procedure 11/26/2024. Mingle Operator Information Transcribing Machine Mechanic: BP. Start time: 9:00 AM. Stop time: 9:09 AM. OCT Macula Interpretation Right Eye Normal without fluid. Left Eye Normal without fluid. Interval Change Right Eye Initial. Left Eye Initial. ZEISS 11-26-2024 Note Date of Procedure 11/26/2024. Mingle Operator Information Transcribing Machine Mechanic: BP. Start time: 9:09 AM. Stop time: [...] treatment regimen with primary care doctor and/or collar separator to maintain optimum levels as they are important to avoid ocular complications Encouraged patient to call the office immediately with any changes to vision or visual concerns Urged patient to get annual plaquenil testing and follow-up with Dr. Curiel for exams (me as needed) Elia Olivares OD November 26, 2024 10:28 AM documented in this encounter [facility] 11-26-2024 Instructions Elia Olivares, LETY - 11/26/2024 10:01 AM EDT Use Systane Complete or Refresh Relieva 2-3 times daily Use Systane, Refresh or Blink gel nightly before bed in both eyes documented in this encounter [facility] 11-19-2024 Note HNO ID: [id number] Author: JV BROOKS MD Service: ? Author Type: Physician Type: Progress Notes Filed: 12/11/2024 00:10 Note Text: Jv Brooks MD Department of Orthopaedics Orthopaedics [address] [facility] [address] Dept: [phone] Dept November 19, 2024 CHIEF COMPLAINT: New [...] Date PRAKASH PH PLACEMENT W/O ENDOSCOPY 09/03/[address] [facility] [address] Cabello CHOLECYSTECTOMY 1981 COLONOSCOPY FLX DX W/COLLJ SPEC WHEN PFRMD 05/17/2002 Colonoscopy COLONOSCOPY FLX DX W/COLLJ SPEC WHEN PFRMD 07/18/2016 Colonoscopy COLONOSCOPY W/BIOPSY SINGLE/MULTIPLE 07/14/2010 DILATION AND CURETTAGE DXAND/THER NONOBSTETRIC 03/21/2001 Dilation AND curettage attempted in the OR EGD TRANSORAL BIOPSY SINGLE/MULTIPLE 07/28/2007 HH, esophagitis,antral gastritis EGD TRANSORAL BIOPSY SINGLE/MULTIPLE 05/27/2008 HH, esophagits, antral gastritis ESOPHAG (more content not included)... [facility] 11-19-2024 History of Present illness Narrative Jv Brooks MD Department of Orthopaedics Orthopaedics [address] [facility] [address] Dept: [phone] Dept November 19, 2024 CHIEF COMPLAINT: New [...] Date PRAKASH PH PLACEMENT W/O ENDOSCOPY 09/03/[address] [facility] [address] 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 My final recommendations will be communicated back to the requesting physician by way of shared Medical record or letter to requesting physician via US mail. Lexis Roca [address] [facility] [address] Recording using [employer] software for draft documentation of the visit was discussed with the patient/authorized computer help desk representative; all questions welcomed and answered. Patient/authorized computer help desk representative agreed to proceed Jv Brooks MD documented in this encounter [facility] 11-14-2024 Evaluation note Diagnosis Onset Date Resolution SOB (shortness of breath) acute November 14, 2024 11 :30am Essential (primary) hypertension chronic November 14, 2024 11 :30am [facility] Work Phone: 1(607) 496-217204-11-2025 Telephone encounter Note* Telephone Encounter - Ary Manning LPN - 10/19/2024 3:22 PM EDT Patient notified and going to reach out to Dr. Pereira's office. [facility]04-11-2025 Miscellaneous Notes* Telephone Encounter - Ary Manning LPN - 10/19/2024 3:22 PM EDT Patient notified and going to reach out to Dr. Pereira's office. * Result Encounter Note - Byron Sutton APRN.MUD GRINDER - 10/17/2024 4:39 PM EDT Please let [...] shortness of breath. Thanks! [facility]04-[facility]-2025 Progress note* Result Encounter Note - Byron Sutton APRN.CNP - 10/17/2024 4:39 PM EDT Please let her know to follow back up with cardiology at this point and see if they want to do any further work up or adjustments. [facility]04-09-2025 Telephone encounter Note* Telephone Encounter - Daina [...] was 147/77 and last evening was 155/85. [facility]04-09-2025 Telephone encounter Note* Telephone Encounter - Byron Sutton APRN.HEYDI - 10/17/2024 12:40 PM EDT Please let Concepcion know that her ECHO was stable. Please see if she is still having issues with shortness of breath. Thanks! [facility]04-03-2025 Instructions* Patient Instructions* Lexis Roca PA-C - 10/11/2024 9:37 AM EDT - Start taking Plaquenil (hydroxychloroquine) 200 mg once daily; prescription sent to [facility] in [place]. - Schedule a baseline OCT and visual dove test with a [facility] meat stuffer within thefirst three months of starting Plaquenil. [...] and review orthopedic visitfindings. documented in [facility]04-[facility]-2025 NoteHNO ID: [id number] Author: LEXIS ROCA PA-C Service: ? Author Type: Physician Instructional Aide Type: Progress Notes Filed: 10/11/2024 18:02 Note Text: Rheumatology FOLLOW UP VISIT Date of Service: 10/11/2024 Patient: Concepcion Donaldson Medical Record: [id number] Primary Care Physician: Preston Haney MD Last Rheumatology visit: None at [facility] History of Present Illness Concepcion Donaldson is [...] Arthralgias, Myalgias, Muscle we (more content not included)...[facility]04-03-[facility] History of Present illness Narrative* Lexis Roca PA-C - 10/11/2024 9:05 AM EDT Images from the original note were not included. Rheumatology FOLLOW UP VISIT Date of Service: 10/11/2024 Patient: Concepcion Donaldson Medical Record: [id number] Primary Care Physician: Preston Haney MD Last Rheumatology visit: None at [facility] History of Present Illness Concepcion Donaldson is [...] Date PRAKASH PH PLACEMENT W/O ENDOSCOPY 09/03/[address] [facility] [address] Cabello CHOLECYSTECTOMY 1982 COLONOSCOPY FLX DX [...] 20 mm/hr 1 3 2 Sed Rate, [place] 0 - 20 mm/hr 18 Latest Ref [...] AI <0.2 Sm Antibody Negative Negative Ribosomal PSYCHOLOGICAL OPERATIONS OFFICER Ab <1.0 AI <0.2 Ribosomal PSYCHOLOGICAL OPERATIONS OFFICER Qualitative Negative Negative Chromatin Ab <1.0 AI <0.2 Chromatin Ab Qual Negative Negative SSA Antibody Qual Negative Negative Anti-SSA <1.0 AI <0.2 Anti-SSB <1.0 AI <0.2 PSYCHOLOGICAL OPERATIONS OFFICER Antibody QUAL Negative Negative Scleroderma Ab Qual [...] result) Impression: IMPRESSION: Degenerative changes as described. Fish Receiver: JUAN J Transcribe Date/Time: Sep 24 2024 [...] relatively low risk profile; prescription sent to [facility] in [place]. - Scheduled follow-up in 3 months to assess medication tolerance and review orthopedic findings. # Long-term use of Plaquenil (Z79.899) Initiating Plaquenil therapy for suspected inflammatory arthritis - Recommend baseline OCT and visual dove testing to be performed at [facility] within the first three months of starting Plaquenil. - Patient to continue regular ophthalmologic evaluations to monitor for potential retinal toxicity. Plan Orders this visit: Office Visit on 10/11/24 CONSULT TO ORTHOPAEDICS CONSULT TO OPHTHALMOLOGY hydrOXYchloroQUINE (PLAQUENIL) 200 mg tablet - Start taking Plaquenil (hydroxychloroquine) 200 mg once daily; prescription sent to [facility] in [place]. - Schedule a baseline OCT and visual dove test with a [facility] meat stuffer within thefirst three months of starting Plaquenil. [...] which included preparing to see the patient, [id number] patient care, completing clinical documentation, obtaining and/or reviewing separately obtained history, performing a medically appropriate examination, counseling and educating the pat ient/family/caregiver, and ordering medications, tests, or procedures. Lexis Roca PA-C Rheumatology Date: October 11, 2024 Time: 5:59 PM [facility]04-02-2025 Telephone encounter Note * Telephone Encounter - Genesis Zuñiga RN - 10/10/2024 11:21 AM EDT Checked with [facility] and they are unable to do dual [employer] CTs. Genesis Zuñiga RN [facility]04-02-2025 Miscellaneous Notes* Telephone Encounter - Genesis Zuñiga RN - 10/10/2024 11:21 AM EDT Checked with [facility] and they are unable to do dual energy CTs. Genesis Zuñiga RN * Telephone Encounter - Lexis Roca PA-C - 10/10/2024 8:17 AM EDT We can discuss options at our appointment tomorrow. Lexis Roca PA-C * Telephone Encounter - Shi Nunn - 10/09/2024 8:16 AM EDT Patient was schedule for CT Scan today at 1:20 PM however the dental technician saw it was ordered with [employer]. Those scans can only be done at [place], [place], or [facility]. I contacted patient to reschedule to one of those locations and patient is unwilling to travel that far. Please advise. NORBERTO Roberts documented in [facility]04-02-2025 Telephone encounter Note * Telephone Encounter - Lexis Roca PA-C - 10/10/2024 8:17 AM EDT We can discuss options at our appointment tomorrow. Lexis Roca PA-C [facility] Work Phone: 1(143) 464-911104-01-2025 Telephone encounter Note* Telephone Encounter - Shi Nnun - 10/09/2024 8:16 AM EDT Patient was schedule for CT Scan today at 1:20 PM however the dental technician saw it was ordered with [employer]. Those scans can only be done at [place], [place], or [facility]. I contacted patient to reschedule to one of those locations and patient is unwilling to travel that far. Please advise. Shi Nunn, PSS [facility]03-28-2025 Progress note* Result Encounter Note - Elisabeth Hoff APRN.CNS - 10/05/2024 1:14 PM EDT mammogram had benign findings, 1 year screening mammogram [facility]03-28-2025 Miscellaneous Notes* Result Encounter Note - Elisabeth oHff APRN.CNS - 10/05/2024 1:14 PM EDT mammogram had benign findings, 1 year screening mammogram documented in this encounterPrem[facility]03-25-2025 NoteHNO ID: [id number] Author: BYRON SUTTON APRN.CNP Service: ? Author [...] test in 2019. Sees Dr. Pereira with [facility] heart group as needed. Seeing rheumatology, recent [...] [Celecoxib] Rash Grass Pollen scratchy throat Nitrofurantoin [place]* Intolerance Stomach pain Penicillins Hives Sucralfate Rash Generalized red rash; itching back of neck. 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03-25-[facility] History of Present illness Narrative* Byron Sutton APRN.MUD GRINDER - 10/02/2024 9:05 AM EDT SUBJECTIVE Concepcion [...] test in 2019. Sees Dr. Pereira with [facility] heart group as needed. Seeing rheumatology, recentlabs [...] [Celecoxib] Rash Grass Pollen scratchy throat Nitrofurantoin [place]* Intolerance Stomach pain Penicillins Hives Sucralfate Rash Generalized red rash; itching back of neck. 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 Byron Sutton APRN-HEYDI documented in this encounterPrem[facility]03-17-2025 Progress note* Result Encounter Note - Lexis [...] prior to our next visit. Thanks Lexis [facility]03-17-2025 Miscellaneous Notes* Result Encounter Note - Lexis [...] next visit. Thanks Lexis documented in this encounterPrem[facility]03-14-2025 Telephone encounter Note * Telephone Encounter - Ailin Everett MA - 09/21/2024 3:03 PM EDT I called and spoke with the patient. Message from provider given. Patient verbalized understanding. [facility]03-14-2025 Miscellaneous Notes* Telephone Encounter - Ailin Everett [...] at our next visit documented in this encounterPrem[facility]03-14-2025 Telephone encounter Note * Telephone Encounter - [...] in more detail at our next visit [facility]03-13-2025 Telephone encounter Note* Telephone Encounter - Dana Vargas LPN - 09/20/2024 12:31 PM EDT Patient notified of providers message and verbalized understanding. Patient requested Byron Sutton.Appointment was made [facility]03-13-2025 Miscellaneous Notes* Telephone Encounter - Dana Vargas [...] 07/18/2021 128/62 06/26/2021 144/80 documented in this encounterPrem[facility]03-13-2025 Telephone encounter Note * Telephone Encounter - [...] 140/70 09/08/2021 146/72 07/18/2021 128/62 06/26/2021 144/80 [facility]03-13-2025 History of Present illness Narrative* Mayuri Matthews [...] PATIENT PRESENTS WITH AN IMPLANTABLE OR ATTACHED BIOPROCESSING MANUFACTURING TECHNICIAN: No RADIOLOGY DEPARTMENT: General X-ray: Exam(s) Completed: Lower Extremity X- Ray(s): Feet, Bilateral Upper Extremity X-Ray(s): Hand, bilateral PERIPHERAL IV DATA: Not applicable SIGNED BY: Nuno Lopez September 20, 2024 10:38 AM documented in this encounterPrem[facility]03-13-2025 NoteHNO ID: [id number] Author: MAYURI MATTHEWS Tech Service: ? Author [...] PATIENT PRESENTS WITH AN IMPLANTABLE OR ATTACHED BIOPROCESSING MANUFACTURING TECHNICIAN: No RADIOLOGY DEPARTMENT: General X-ray: Exam(s) Completed: Lower Extremity X-Ray(s): Feet, Bilateral Upper Extremity X-Ray(s): Hand, bilateral PERIPHERAL IV DATA: Not applicable SIGNED BY: Nuno Lopez September 20, 2024 10:38 [facility]03-13-2025 NoteHNO ID: [id number] Author: LEXIS ROCA PA-C Service: ? Author Type: Physician Instructional Aide Type: Progress Notes Filed: 09/20/2024 10:51 Note Text: Rheumatology CONSULTATION Date of Service: 09/20/2024 Patient: Concepcion Donaldson Medical Record: [id number] Primary Care Physician: Preston Haney MD Last Rheumatology visit: None at [facility] Referring Provider: Elisabeth Hoff [address] [facility] [address] Concepcion Donaldson is here today at request of Elisabeth Hoff APRN.[facility] specifically for consultation of my opinion in regards to the chief complaint listed below. Correspondence will be shared today via the [facility] electronic health record or through regular mail, [...] use after diagnosed with gastric ulcer at [facility]. She thought the medication was starting to help, but she feels her hand pain has gotten worse since. Most of her pain today is in her hands. 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 The worst area of her pain is [...] 02/17/24 labs CBC- OK, low Ly%, High [place] %, High EO%. CMP- hyponatremia 133 Sed rate normal 9 CRP<2.9 ANNIE negative CCP negative Rheumatoid factor negative Hepatitis B surface antigen and surface antibody nonreactive hepatitis C antibody nonreactive 03/27/24 labs CBC normal CMP low alk phos 43, hyponatremia 130, hypochloremia 97 06/03/24 labs CBC RDW CV 15.0 elevated Ly% 17.0 (low) [place] % 12.8 (high) Immature Granulocytes 1% (high) - Left shift CMP - normal creatinine 0.8. 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 1 daughter Angela (here [...] Service: 09/20/2024 Patient: Concepcion Donaldson Medical Record: [id number] Primary Care Physician: Preston Haney MD Last Rheumatology visit: None at [facility] Referring Provider: Elisabeth Hoff [address] [facility] [address] Concepcion Donaldson is here today at request of Elisabeth Hoff APRN.[facility] specifically for consultation of my opinion in regards to the chief complaint listed below. Correspondence will be shared today via the [facility] electronic health record or through regular mail, [...] use after diagnosed with gastric ulcer at [facility]. She thought the medication was starting to help, but she feels her hand pain has gotten worse since. Most of her pain today is in her hands. 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 The worst area of her pain is [...] 02/17/24 labs CBC- OK, low Ly%, High [place] %, High EO%. CMP- hyponatremia 133 Sed rate normal 9 CRP<2.9 ANNIE negative CCP negative Rheumatoid factor negative Hepatitis B surface antigen and surface antibody nonreactive hepatitis C antibody nonreactive 03/27/24 labs CBC normal CMP low alk phos 43, hyponatremia 130, hypochloremia 97 06/03/24 labs CBC RDW CV 15.0 elevated Ly% 17.0 (low) [place] % 12.8 (high) Immature Granulocytes 1% (high) - Left shift CMP - normal creatinine 0.8. 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 1 daughter Angela (here [...] Date PRAKASH PH PLACEMENT W/O ENDOSCOPY 09/03/[address] [facility] [address] Cabello CHOLECYSTECTOMY 1982 COLONOSCOPY FLX DX [...] with inflammatory arthritis/seronegative rheumatoid arthritis by local yarn twister. [facility] ANNIE, CCP, rheumatoid factor. 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 Will Notify PCP of Elevated BP and Shortness of breath via Epic Communication I spent a total of 65 minutes on the date of the service which included preparing to see the patient, [id number] patient care, completing clinical documentation, obtaining and/or reviewing separately obtained history, performing a medically appropriate examination, counseling and educating the pat ient/family/caregiver, and ordering medications, tests, or procedures. Lexis Roca PA-C Rheumatology Date: September 20, 2024 Time: 10:49 AM documented in this encounterPrem[facility]03-05-2025 Telephone encounter Note * Telephone Encounter - [...] 02/17/24 labs CBC- OK, low Ly%, High [place] %, High EO%. CMP- hyponatremia 133 Sed rate normal 9 CRP<2.9 ANNIE negative CCP negative Rheumatoid factor negative Hepatitis B surface antigen and surface antibody nonreactive hepatitis C antibody nonreactive 03/27/24 labs CBC normal CMP low alk phos 43, hyponatremia 130, hypochloremia 97 06/03/24 labs CBC RDW CV 15.0 elevated Ly% 17.0 (low) [place] % 12.8 (high) Immature Granulocytes 1% (high) - Left shift CMP - normal creatinine 0.8. Elevated BUN/creatinine ratio 21.6 hyponatremia 128 hypochloremia 93 [facility] Work Phone: 1(260) 916-276903-05-2025 Miscellaneous Notes* Telephone Encounter - Lexis Roca [...] 02/17/24 labs CBC- OK, low Ly%, High [place] %, High EO%. CMP- hyponatremia 133 Sed rate normal 9 CRP<2.9 ANNIE negative CCP negative Rheumatoid factor negative Hepatitis B surface antigen and surface antibody nonreactive hepatitis C antibody nonreactive 03/27/24 labs CBC normal CMP low alk phos 43, hyponatremia 130, hypochloremia 97 06/03/24 labs CBC RDW CV 15.0 elevated Ly% 17.0 (low) [place] % 12.8 (high) Immature Granulocytes 1% (high) - Left shift CMP - normal creatinine 0.8. Elevated BUN/creatinine ratio 21.6 hyponatremia 128 hypochloremia 93 documented in this encounterPrem[facility]02-11-2025 History of Present illness Narrative* Surendra Morales [...] PATIENT PRESENTS WITH AN IMPLANTABLE OR ATTACHED BIOPROCESSING MANUFACTURING TECHNICIAN: No RADIOLOGY DEPARTMENT: Mammography PERIPHERAL IV DATA: Not applicable SIGNED BY: Gali Iglesias August 21, 2024 9:36 AM documented in this encounterPremier Health02-11-2025 NoteHNO ID: [id number] Author: SURENDRA MORALES Mammo Tech Service: ? [...] PATIENT PRESENTS WITH AN IMPLANTABLE OR ATTACHED BIOPROCESSING MANUFACTURING TECHNICIAN: No RADIOLOGY DEPARTMENT: Mammography PERIPHERAL IV DATA: Not applicable SIGNED BY: Priscilla IglesiasIceberg August 21, 2024 9:36 [facility]02-10-2025 Telephone encounter Note* Telephone Encounter - Ailin Everett MA - 08/20/2024 8:05 AM EST Records received via fax from Dr. Madrid's office. In folder for review. [facility]02-10-2025 Miscellaneous Notes* Telephone Encounter - Ailin Everett MA - 08/20/2024 8:05 AM EST Records received via fax from Dr. Madrid's office. In folder for review. * Telephone Encounter - Ailin Everett MA - 08/17/2024 9:55 AM EST I called and spoke with scheduling desk at Dr. Madrid's office. They will fax records over. Labs were printed from [facility]. * Telephone Encounter - Genesis Zuñiga RN - 08/16/2024 4:14 PM EST Jarek's office is closed on [phone] * Telephone Encounter - Genesis Zuñiga RN - 08/16/2024 4:14 PM EST ----- Message from Lexis Roca APRN.MUD GRINDER sent at 08/16/2024 3:40 PM EST ----- This patient was seeing Dr. Madrid at [facility]. Scheduled next week. Can we request records? Thanks Lexis documented in this encounterPremier Health02-07-2025 Telephone encounter Note * Telephone Encounter - Ailin Everett MA - 08/17/2024 9:55 AM EST I called and spoke with scheduling desk at Dr. Madrid's office. They will fax records over. Labs were printed from [facility]. [facility]02-06-2025 Telephone encounter Note* Telephone Encounter - Genesis Zuñiga RN - 08/16/2024 4:14 PM EST Jarek's office is closed on [phone] [facility]02-06-2025 Telephone encounter Note* Telephone Encounter - Genesis Zuñiga RN - 08/16/2024 4:14 PM EST ----- Message from Lexis Roca APRN.MUD GRINDER sent at 08/16/2024 3:40 PM EST ----- This patient was seeing Dr. Madrid at [facility]. Scheduled next week. Can we request records? Thanks Lexis [facility]01-31-2025 Telephone encounter Note* Telephone Encounter - Preston Haney MD - 08/10/2024 6:53 PM EST The following approved medication requests have been transmitted electronically. Requested Prescriptions Signed Prescriptions Disp Refills omeprazole (PRILOSEC) 20 mg capsule 180 capsule 3 Sig: Take 1 capsule by mouth two times a day. 1/2 HR BEFORE MEAL. Authorizing Provider: PRESTON HANEY MD [facility]01-31-2025 Miscellaneous Notes* Telephone Encounter - Preston Haney [...] calling: self Call patient at: at home [phone] (home) [phone] (cell) Was an appointment scheduled: No Closing statement: Prior Authorization Calls: Thank you for calling [facility], your call will be returned within the next 24 hours or next business day. Kaci Lopez documented in this encounterPremier Health01-31-2025 Telephone encounter Note * Telephone Encounter - Yolie Collazo LPN - 08/10/2024 3:34 PM EST PA completed and approved for omeprazole 20mg one twice daily. PA approved from 08/10/24 to 08/10/2025. [facility]01-27-2025 Telephone encounter Note* Telephone Encounter - Yolie Collazo LPN - 08/06/2024 4:41 PM EST Pt will need new rx for either dose. [facility]01-27-2025 Telephone encounter Note* Telephone Encounter - Kaci [...] calling: self Call patient at: at home [phone] (home) [phone] (cell) Was an appointment scheduled: No Closing statement: Prior Authorization Calls: Thank you for calling [facility], your call will be returned within the next 24 hours or next business day. Kaci Lopez [facility]01-15-2025 Telephone encounter Note* Telephone Encounter - Maral [...] Maral Santo July 25, 2024 10:54 AM [facility]01-15-2025 Miscellaneous Notes* Telephone Encounter - Maral Santo [...] 25, 2024 10:54 AM documented in this encounterPremier Health01-10-2025 Telephone encounter Note * Telephone Encounter - Dana Vargas LPN - 07/20/2024 4:06 PM EST Patient notified of providers message and verbalized understanding. [facility]01-10-2025 Miscellaneous Notes* Telephone Encounter - Dana Vargas [...] consult to rheumatology, new provider starting in [place] by the end of the month and they would like to see her. Please contact patient when order is place sothey can schedule. Thank you, Merlyn Pires documented in this encounterPremier Health01-10-2025 Telephone encounter Note * Telephone Encounter - Elisabeth Hoff APRN.CNS - 07/20/2024 3:18 PM EST SHAKA contreras with Preston Haney MD. Order filed. [facility]01-10-2025 Telephone encounter Note* Telephone Encounter - Joselyn Piresa - 07/20/2024 12:07 PM EST Patient will need an order placed for a consult to rheumatology, new provider starting in [place] by the end of the month and they would like to see her. Please contact patient when order is place sothey can schedule. Thank you, Merlyn Pires [facility]01-10-2025 Instructions* Patient Instructions* Preston Haney MD - 07/20/2024 11:48 AM EST - Discontinue Sucralfate due to allergic reaction. - Apply Triamcinolone Acetonide 0.1% cream twice daily for 2 weeks, then 1 week off, and repeat as needed for rash. - Take Nortriptyline 25 mg at bedtime; prescription sent to [facility]. - Refills for Ropinirole, Lisinopril HCTZ, Lovastatin, and Metoprolol sent to [facility]. - Increase intake of omega-3 oils (e.g., [...] before the next checkup. documented in this encounterPremier Health01-10-2025 NoteHNO ID: [id number] Author: PRESTON HANEY MD Service: ? Author Type: Physician Type: Progress Notes Filed: 08/19/2024 01:21 Note Text: This note was created using Mor.slriter. Subjective Concepcion Donaldson is a 83 year [...] drug eruption. She was evaluated by a meteorology teacher, who diagnosed the rash as a drug [...] receiving treatment at a spine center in [place]. She reports that her symptoms are improving [...] daily. lisinopril-hydroCHLOROthiazide (ZESTORETIC) (more content not included)... [facility]01-10-2025 History of Present illness Narrative* Preston Haney MD - 07/20/2024 10:59 AM EST This note was created using Mor.slriter. Subjective Concepcion Donaldson is a 83 year [...] drug eruption. She was evaluated by a meteorology teacher, who diagnosed the rash as a drug [...] receiving treatment at a spine center in [place]. She reports that her symptoms are improving [...] - 4.00 k/uL 0.94 (L) 0.95 (L) Klamath% % 10.4 14.1 Abs [place] <0.87 k/uL 0.52 0.66 Eosin% % 4.4 [...] - Discussed potential referral to rheumatology in [place] for further management. - Educated on anti-inflammatory [...] the date of the service which included kupm-zt-gjrd patient care, completing clinical documentation, obtaining and/or reviewing separately obtained history, performing a medically appropriate examination, counseling and educating the patient/family/caregiver, ordering medications, tests, or procedures, independently interpreting results (not separately reported), and communicating results to the patient/family/caregiver. Preston Haney MD documented in this encounterPremier Health11-20-[address] [facility] Medical Records Department [address] [place] [address] History Physical Exam 05/30/24 0936 MR#: [id number] Acct: [id number] Name: CONCEPCION DONALDSON Rep #: [id number] : 1940 83 From: Gavino Jay DO PCP: Dr. Preston Haney MD Status:[facility] Location: [place] [address] History and Physical Date of Admission: 05/30/24 [...] comfortable and no acute distress Orientation: alert HENIA Head: normal to inspection Ears: hearing grossly [...] cognition Speech: speech laron (more content not included)...[facility] 04-24-2024 NoteHNO ID: [id number] Author: BYRON SUTTON APRN.HEYDI Service: ? Author [...] Outside specialists seen: rheumatology, general surgery, urogyn, hat trimmer, urology, spine center Medical/Family history review Reviewed [...] ICD10: M15.0 Following with rheum. Byron Sutton APRN.CNPOhio[facility]10[facility] History of Present illness Narrative* Byron [...] Outside specialists seen: rheumatology, general surgery, urogyn, hat trimmer, urology, spine center Medical/Family history review Reviewed [...] rheum. Byron Sutton APRN.HEYDI documented in this encounterPremier Health10-15-2024 Instructions* Patient Instructions* Byron Sutton APRN.CNP - [...] review all the medicines you take, even eluh-dqh-xkjvybx medicines. As you get older, the way [...] have certain medical conditions. documented in this encounterPremier Health08-07-2024 NoteHNO ID: [id number] Author: MAHESH BELLO MA Service: ? Author Type: Goods Layer Type: Progress Notes Filed: 02/15/2024 12:29 Note Text: POPULATION HEALTH NAVIGATION OUTREACH Action/FYI Patient is on [facility] CURRENT ROSTER Workbench list for below and needs appointment to address: RSV Vaccine(1 - 1-dose 60+ series) Shingrix Vaccine(2 of 3) Hemoglobin A1C (%) Date Value 01/13/2024 5.5 05/02/2021 5.8 Patient due for: Medicare Annual Wellness Visit Spoke to patient. Scheduled 04-24-24 with MUD GRINDER. Noted upcoming appointment to address due care gaps and HCC gap closure. No HCC Reason for Outreach Care Gap/HCC or Scheduling Wellness Visits Care Gaps due: Medicare Annual Wellness Visit Patient Contacted: Spoke to patient/parent/or legal guardian Patient identified by name and : Yes Care Gap/HCC/Scheduling Wellness actions taken: Patient scheduled/pended labs: Medicare Annual Wellness Visit 04/24/2024 in [facility] with BYRON SUTTON - Annual Wellness - 3 month follow up, Please address due care gaps and HCC gap closure 07/20/2024 in [facility] with PRESTON HANEY - 6 month follow up Navigation Signature: Mahesh Bello MA February 15, 2024 9:22 [facility]08-07-2024 History of Present illness Narrative* Mahesh Bello MA - 02/15/2024 9:22 AM EDT POPULATION HEALTH NAVIGATION OUTREACH Action/FYI Patient is on [facility] CURRENT ROSTER Workbench list for below and needs appointment to address: RSV Vaccine(1 - 1-dose 60+ series) Shingrix Vaccine(2 of 3) Hemoglobin A1C (%) Date Value 01/13/2024 5.5 05/02/2021 5.8 Patient due for: Medicare Annual Wellness Visit Spoke to patient. Scheduled 04-24-24 with MUD GRINDER. Noted upcoming appointment to address due care gaps and HCC gap closure. No HCC Reason for Outreach Care Gap/HCC or Scheduling Wellness Visits Care Gaps due: Medicare Annual Wellness Visit Patient Contacted: Spoke to patient/parent/or legal guardian Patient identified by name and : Yes Care Gap/HCC/Scheduling Wellness actions taken: Patient scheduled/pended labs: Medicare Annual Wellness Visit 04/24/2024 in [facility] with BYRON SUTTON - Annual Wellness - 3 month follow up, Please address due care gaps and HCC gap closure 07/20/2024 in [facility] with PRESTON HANEY - 6 month follow up Navigation Signature: Mahesh Bello MA February 15, 2024 9:22 AM documented in this encounterPremier Health08-07-2024 NotePatient Outreach (NETNAV) CONCEPCION DONALDSON ([id number]) 1940 F Date Time Provider Department 02/15/24 MAHESH BELLOV During your visit today, we recorded the following information about you: Mahesh Bello MA 02/15/2024 12:29 PM Signed POPULATION HEALTH NAVIGATION OUTREACH Action/FYI Patient is on [facility] CURRENT ROSTER Workbench list for below and needs appointment to address: RSV Vaccine(1 - 1-dose 60+ series) Shingrix Vaccine(2 of 3) Hemoglobin A1C (%) Date Value 01/13/2024 5.5 05/02/2021 5.8 Patient due for: Medicare Annual Wellness Visit Spoke to patient. Scheduled 04-24-24 with MUD GRINDER. Noted upcoming appointment to address due care gaps and HCC gap closure. No HCC Reason for Outreach Care Gap/HCC or Scheduling Wellness Visits Care Gaps due: Medicare Annual Wellness Visit Patient Contacted: Spoke to patient/parent/or legal guardian Patient identified by name and : Yes Care Gap/HCC/Scheduling Wellness actions taken: Patient scheduled/pended labs: Medicare Annual Wellness Visit 04/24/2024 in [facility] with BYRON SUTTON - Annual Wellness - 3 month follow up, Please address due care gaps and HCC gap closure 07/20/2024 in [facility] with PRESTON HANEY - 6 month [...] Date Reviewed: 01/20/2024 Reviewed by: Byron Sutton APRN.MUD GRINDER - Fully Assessed Reason for Visit: Population Health Navigation Outreach [3910] [facility]mt[facility] Pres[facility] as of 02/15/2024 - calcitriol [...] wellness visit, subsequent [Z00*11/ (more content not included)...[facility]07-12-2024 History of Present illness Narrative* Byron Sutton APRN.MUD GRINDER - 01/20/2024 9:54 AM EDT SUBJECTIVE Concepcion [...] [Celecoxib] Rash Grass Pollen scratchy throat Nitrofurantoin [place]* Intolerance Stomach pain Penicillins Hives ACTIVE PROBLEM [...] bp. Byron Sutton APRN-HEYDI documented in this encounterPremier Health06-14-2024 Telephone encounter Note * Telephone Encounter - Dana Vargas LPN - 12/23/2023 8:23 AM EDT Order and records faxed to Dr. Madrid to number provided below. [facility]06-14-2024 Miscellaneous Notes* Telephone Encounter - Dana Vargas [...] worse and she would like to see yarn twister . Pt is asking for an order to be faxed to Dr. Madrid's office along with: Demographics, last 2 OV notes, last 6 months of labs and imaging, copy front and back of insurance card. Pt reports she is mostly going for the arthritis in her hands. Fax to: [phone]. Miranda Munoz LPN documented in this encounterPremier Health06-14-2024 Telephone encounter Note * Telephone Encounter - Preston Haney MD - 12/23/2023 12:35 AM EDT Filed order as requested Print records as requested below [facility]06-11-2024 Telephone encounter Note* Telephone Encounter - Miranda Munoz LPN - 12/20/2023 1:37 PM EDT Pt is calling to report her arthritis is getting worse and she would like to see yarn twister . Pt is asking for an order to be faxed to Dr. Madrid's office along with: Demographics, last 2 OV notes, last 6 months of labs and imaging, copy front and back of insurance card. Pt reports she is mostly going for the arthritis in her hands. Fax to: [phone]. Miranda Munoz LPN [facility]02-12-2024 Miscellaneous Notes* Letter - Coordinator, Mammography - 08/22/2023 9:20 AM EST August 22, 2023 PID: [id number] Concepcion Donaldson [address] [place] [address] Dear Ms. Donaldson, We are pleased to [...] report will be kept on file at [facility] as part of your permanent medical record and are available for your continuing care. Thank you for allowing us to help in meeting your health care needs. Sincerely, Dr. Marcelo Interpreting Radiologist [facility] (Normal over 40) documented in this encounterPremier Health02-09-2024 History of Present illness Narrative* Mariann Manning [...] PATIENT PRESENTS WITH AN IMPLANTABLE OR ATTACHED BIOPROCESSING MANUFACTURING TECHNICIAN: No RADIOLOGY DEPARTMENT: Mammography PERIPHERAL IV DATA: Not applicable SIGNED BY: Mariann Manning Captimo August 19, 2023 9:57 AM documented in this encounterPremier Health01-10-2024 History of Present illness Narrative* Preston Haney MD - 07/20/2023 10:34 AM EST This note was created using Mor.slriter. Subjective Concepcion Donaldson is a 82 year [...] hands. Difficult to peel things. 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 Knows DJD affecting back and has spinal stenosis. Follows with Dr. Owusu. Turns out not having recurrent UTIs. Treatment with compounded med from [facility]. Doing well. PAST MEDICAL HISTORY Diagnosis Date [...] 4.00 k/uL 1.10 0.81 (L) 0.94 (L) [place]% % 12.8 10.8 10.4 Abs [place] <0.87 k/uL 0.76 0.47 0.52 Eosin% % [...] management. Preston Haney MD documented in this encounterPremier Health09-19-2023 History of Present illness Narrative* Birgit Dean, [...] 29, 2023 9:36 AM documented in this encounterPremier Health06-15-2023 Miscellaneous Notes* Telephone Encounter - Abby Gaitan [...] completed around September with Dr. Mart. The jewel hole cornerer told the patient they could not see an order placed for the mammogram, nor do I see it listed. Please advise so the patient can schedule. Thank you. documented in this encounterPremier Health03-07-2023 History of Present illness Narrative* Miah Mart MD - 09/14/2022 9:52 AM EST Subjective: Patient is status post a left stereotactic breast biopsy completed at [facility] on 08/30/2022. This came back as fibrous [...] routine mammograms after this. documented in this encounterPremier Health02-07-2023 History of Present illness Narrative* Miah Mart [...] Date PRAKASH PH PLACEMENT W/O ENDOSCOPY 09/03/[address] [facility] [address] Cabello CHOLECYSTECTOMY 1982 COLONOSCOPY FLX DX [...] Miah Mart III, MD documented in this encounterPremier Health02-07-2023 Nurse Note* Katie Ohara - 08/17/2022 8:27 [...] Colonoscopy: 08/2016 Katie Ohara documented in this encounterPremier Health01-04-2023 Miscellaneous Notes* Telephone Encounter - Lady Santos [...] and advise. Funmilayo Castellanos documented in this encounterPremier Health01-04-2023 Miscellaneous Notes* Telephone Encounter - Caroline Archibald - 07/14/2022 9:41 AM EST Patient will call back to update pharmacy. documented in this encounterPremier Health12-30-2022 History of Present illness Narrative* Deneen Adam [...] 09, 2022 10:04 AM documented in this encounterPremier Health12-09-2022 Miscellaneous Notes* Telephone Encounter - Katharine Loco LPN - 06/18/2022 2:10 PM EST Patient calling asking that copy of urine culture from 06/08/[address] Owusu office at [phone]. Printed and faxed as requested. documented in this encounterPremier Health12-02-2022 Miscellaneous Notes* Telephone Encounter - Jasson Polk Ma - 06/11/2022 1:20 PM EST Patient informed. Jasson Polk Ma * Telephone Encounter - Blanca Munoz MD - 06/11/2022 10:42 AM EST Keflex prescribed for treatment of UTI. Please inform pt. Blanca Munoz MD documented in this encounterPremier Health12-02-2022 Miscellaneous Notes* Telephone Encounter - Erum Moreno [...] Abs Lymph 1.00 - 4.00 k/uL 1.10 Klamath% % 12.8 Abs [place] <0.87 k/uL 0.76 Eosin% % 4.6 Abs [...] - 80.0 ng/mL 76.3 documented in this encounterPremier Health11-29-2022 History of Present illness Narrative* Elisabeth Hoff [...] [Celecoxib] Rash Grass Pollen scratchy throat Nitrofurantoin [place]* Intolerance Stomach pain Penicillins Hives Medications trimethoprim [...] Level: 4 - Moderate documented in this encounterPremier Health08-09-2022 Miscellaneous Notes* Telephone Encounter - Tiffany Da [...] Keflex prescription sent to pharmacy. Laura Shepard APRN.MUD GRINDER documented in this encounterPremier Health07-17-2022 Miscellaneous Notes* Telephone Encounter - Ailin Naranjo MD - 01/24/2022 5:03 PM EDT Spoke with patient at length about urine culture results. I sent her in keflex due to extensive list of allergies and sensitivities. She has previously tolerated keflex. She otherwise feels fine withno complaints. Ailin Naranjo MD documented in this encounterPremier Health07-14-2022 Miscellaneous Notes* Telephone Encounter - uLcille Gilliland Cma - 01/21/2022 11:02 AM EDT [...] pended Farhad Arredondo MA documented in this encounterPremier Health07-01-2022 History of Present illness Narrative* Nneka Romero, [...] 08, 2022 9:23 AM documented in this encounterPremier Health06-10-2022 Miscellaneous Notes* Telephone Encounter - Laura Shepard [...] understands. Laura Shepard APRN.CNP documented in this encounterPremier Health06-07-2022 NoteHNO ID: [id number] Author: Blanca Munoz MD Service: ? 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 She has a previous history of an abnormal mammogram. LMP: No LMP recorded. Patient has had a hysterectomy.; Menopause post: Menstrual history: NA; Deliveries: 1 x I have confirmed and edited as necessary, the PFSH obtained by others. Blanca Munoz MD Environmental Field Team Member offered: Patient accepts, visit chaperoned by Lucille [...] Making Level: 4 - Moderate Blanca Munoz [facility]05-24-2022 Miscellaneous Notes* Telephone Encounter - Terri Acosta Cma - 12/01/2021 1:05 PM EDT Pt advised of recommendations * Telephone Encounter - Blanca Munoz MD - 12/01/2021 12:12 PM EDT Please inform pt she can hold Hiprex while taking Cipro then restart after completing antibiotics. Blanca Munoz MD documented in this encounterPremier Health05-24-2022 History of Present illness Narrative* Preston Haney MD - 12/01/2021 9:54 AM EDT This note was created using Mor.slriter. Subjective Concepcion Donaldson is a 80 year [...] 1.[address] Ann to [facility]. Reviewed that was placed on Hiprex [...] above. Preston Haney MD documented in this encounterPremier Health05-21-2022 Miscellaneous Notes* Telephone Encounter - Ailin Naranjo MD - 11/28/2021 12:40 PM EDT I have called in cipro for +UTI. Patient with multiple allergies to antibiotics. Has had cipro in the past without issues. Voicemail sent for call back but also sent BiiCodet message. Will call again tomorrow if patient has not seen message. Ailin Naranjo MD documented in this encounterPremier Health03-31-2022 History of Present illness Narrative* Carlos Noble [...] components. Carlos Noble MD documented in this encounterPremier Health03-01-2022 NoteHNO ID: [id number] Author: Blanca Munoz MD Service: ? Author [...] with me in 3 months Blanca Munoz, [facility]02-15-2022 NoteHNO ID: [id number] Author: Blanca Munoz MD Service: ? Author [...] process, a PAS/F was performed at the [facility] and compared with appropriate controls. ?The stain is negative for fungal organisms. 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 In the appropriate clinical context, the findings would represent lichen planus or an evolving lichen sclerosis. Clinical correlation remains essential. 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 Protocols used: FALLS AND [id number] documented in this encounterPremier Health11-19-2014 History of Past illness Narrative* Problem Noted [...] of this encounter (statuses as of 05/14/2023) [facility]11-19-2014 History of Past illness Narrative* Problem Noted [...] of this encounter (statuses as of 05/14/2023) [facility]11-19-2014 History of Past illness Narrative* Problem Noted [...] of this encounter (statuses as of 08/20/2023) [facility]11-19-2014 History of Past illness Narrative* Problem Noted [...] of this encounter (statuses as of 08/22/2023) [facility]11-19-2014 History of Past illness Narrative* Problem Noted [...] of this encounter (statuses as of 08/24/2023) [facility]10-12-2010 History of Past illness Narrative* Problem Noted Date Resolved Date Vision loss 04/21/2010 07/06/2016 Overview: Dr. Clemons Incontinence of feces 09/29/2009 03/23/2011 GASTRITIS ANTRAL( W/O Hemorrhage) 05/27/2008 07/06/2016 Urgency of urination 01/10/2008 07/06/2016 Urge incontinence 01/10/2008 09/29/2009 Female stress incontinence 01/10/200809/29 Uterovaginal prolapse, incomplete 06/08/2007 09/29/2009 Postmenopausal atrophic vaginitis 06/08/2007 07/06/2016 documented as of this encounter (statuses as of 10/08/2021) [facility]10-12[facility]2010 History of Past illness Narrative* Problem Noted Date Resolved Date Vision loss 04/21/2010 07/06/2016 Overview: Dr. Clemons Incontinence of feces 09/29/2009 03/23/2011 GASTRITIS ANTRAL( W/O Hemorrhage) 05/27/2008 07/06/2016 Urgency of urination 01/10/2008 07/06/2016 Urge incontinence 01/10/2008 09/29/2009 Female stress incontinence 01/10/200809/29 Uterovaginal prolapse, incomplete 06/08/2007 09/29/2009 Postmenopausal atrophic vaginitis 06/08/2007 07/06/2016 documented as of this encounter (statuses as of 11/28/2021) [facility]10-[facility] History of Past illness Narrative* Problem Noted Date Resolved Date Vision loss 04/21/2010 07/06/2016 Overview: Dr. Clemons Incontinence of feces 09/29/2009 03/23/2011 GASTRITIS ANTRAL( W/O Hemorrhage) 05/27/2008 07/06/2016 Urgency of urination 01/10/2008 07/06/2016 Urge incontinence 01/10/2008 09/29/2009 Female stress incontinence 01/10/200809/29 Uterovaginal prolapse, incomplete 06/08/2007 09/29/2009 Postmenopausal atrophic vaginitis 06/08/2007 07/06/2016 documented as of this encounter (statuses as of 12/01/2021) [facility] History of Past illness Narrative* Problem Noted Date Resolved Date Vision loss 04/21/2010 07/06/2016 Overview: Dr. Clemons Incontinence of feces 09/29/2009 03/23/2011 GASTRITIS ANTRAL( W/O Hemorrhage) 05/27/2008 07/06/2016 Urgency of urination 01/10/2008 07/06/2016 Urge incontinence 01/10/2008 09/29/2009 Female stress incontinence 01/10/200809/29 Uterovaginal prolapse, incomplete 06/08/2007 09/29/2009 Postmenopausal atrophic vaginitis 06/08/2007 07/06/2016 documented as of this encounter (statuses as of 12/02/2021) [facility] of Past illness Narrative* Problem Noted Date Resolved Date Vision loss 04/21/2010 07/06/2016 Overview: Dr. Clemons Incontinence of feces 09/29/2009 03/23/2011 GASTRITIS ANTRAL( W/O Hemorrhage) 05/27/2008 07/06/2016 Urgency of urination 01/10/2008 07/06/2016 Urge incontinence 01/10/2008 09/29/2009 Female stress incontinence 01/10/200809/29 Uterovaginal prolapse, incomplete 06/08/2007 09/29/2009 Postmenopausal atrophic vaginitis 06/08/2007 07/06/2016 documented as of this encounter (statuses as of 12/18/2021) [facility] History of Past illness Narrative* Problem Noted Date Resolved Date Vision loss 04/21/2010 07/06/2016 Overview: Dr. Clemons Incontinence of feces 09/29/2009 03/23/2011 GASTRITIS ANTRAL( W/O Hemorrhage) 05/27/2008 07/06/2016 Urgency of urination 01/10/2008 07/06/2016 Urge incontinence 01/10/2008 09/29/2009 Female stress incontinence 01/10/200809/29 Uterovaginal prolapse, incomplete 06/08/2007 09/29/2009 Postmenopausal atrophic vaginitis 06/08/2007 07/06/2016 documented as of this encounter (statuses as of 01/09/2022) [facility] History of Past illness Narrative* Problem Noted Date Resolved Date Vision loss 04/21/2010 07/06/2016 Overview: Dr. Clemons Incontinence of feces 09/29/2009 03/23/2011 GASTRITIS ANTRAL( W/O Hemorrhage) 05/27/2008 07/06/2016 Urgency of urination 01/10/2008 07/06/2016 Urge incontinence 01/10/2008 09/29/2009 Female stress incontinence 01/10/200809/29 Uterovaginal prolapse, incomplete 06/08/2007 09/29/2009 Postmenopausal atrophic vaginitis 06/08/2007 07/06/2016 documented as of this encounter (statuses as of 01/21/2022) [facility] History of Past illness Narrative* Problem Noted Date Resolved Date Vision loss 04/21/2010 07/06/2016 Overview: Dr. Clemons Incontinence of feces 09/29/2009 03/23/2011 GASTRITIS ANTRAL( W/O Hemorrhage) 05/27/2008 07/06/2016 Urgency of urination 01/10/2008 07/06/2016 Urge incontinence 01/10/2008 09/29/2009 Female stress incontinence 01/10/200809/29 Uterovaginal prolapse, incomplete 06/08/2007 09/29/2009 Postmenopausal atrophic vaginitis 06/08/2007 07/06/2016 documented as of this encounter (statuses as of 01/24/2022) [facility] History of Past illness Narrative* Problem Noted Date Resolved Date Vision loss 04/21/2010 07/06/2016 Overview: Dr. Clemons Incontinence of feces 09/29/2009 03/23/2011 GASTRITIS ANTRAL( W/O Hemorrhage) 05/27/2008 07/06/2016 Urgency of urination 01/10/2008 07/06/2016 Urge incontinence 01/10/2008 09/29/2009 Female stress incontinence 01/10/200809/29 Uterovaginal prolapse, incomplete 06/08/2007 09/29/2009 Postmenopausal atrophic vaginitis 06/08/2007 07/06/2016 documented as of this encounter (statuses as of 02/16/2022) [facility] History of Past illness Narrative* Problem Noted Date Resolved Date Vision loss 04/21/2010 07/06/2016 Overview: Dr. Clemons Incontinence of feces 09/29/2009 03/23/2011 GASTRITIS ANTRAL( W/O Hemorrhage) 05/27/2008 07/06/2016 Urgency of urination 01/10/2008 07/06/2016 Urge incontinence 01/10/2008 09/29/2009 Female stress incontinence 01/10/200809/29 Uterovaginal prolapse, incomplete 06/08/2007 09/29/2009 Postmenopausal atrophic vaginitis 06/08/2007 07/06/2016 documented as of this encounter (statuses as of 06/08/2022) [facility] History of Past illness Narrative* Problem Noted Date Resolved Date Vision loss 04/21/2010 07/06/2016 Overview: Dr. Clemons Incontinence of feces 09/29/2009 03/23/2011 GASTRITIS ANTRAL( W/O Hemorrhage) 05/27/2008 07/06/2016 Urgency of urination 01/10/2008 07/06/2016 Urge incontinence 01/10/2008 09/29/2009 Female stress incontinence 01/10/200809/29 Uterovaginal prolapse, incomplete 06/08/2007 09/29/2009 Postmenopausal atrophic vaginitis 06/08/2007 07/06/2016 documented as of this encounter (statuses as of 06/11/2022) [facility] History of Past illness Narrative* Problem Noted Date Resolved Date Vision loss 04/21/2010 07/06/2016 Overview: Dr. Clemons Incontinence of feces 09/29/2009 03/23/2011 GASTRITIS ANTRAL( W/O Hemorrhage) 05/27/2008 07/06/2016 Urgency of urination 01/10/2008 07/06/2016 Urge incontinence 01/10/2008 09/29/2009 Female stress incontinence 01/10/200809/29 Uterovaginal prolapse, incomplete 06/08/2007 09/29/2009 Postmenopausal atrophic vaginitis 06/08/2007 07/06/2016 documented as of this encounter (statuses as of 06/18/2022) [facility] History of Past illness Narrative* Problem Noted Date Resolved Date Vision loss 04/21/2010 07/06/2016 Overview: Dr. Clemons Incontinence of feces 09/29/2009 03/23/2011 GASTRITIS ANTRAL( W/O Hemorrhage) 05/27/2008 07/06/2016 Urgency of urination 01/10/2008 07/06/2016 Urge incontinence 01/10/2008 09/29/2009 Female stress incontinence 01/10/200809/29 Uterovaginal prolapse, incomplete 06/08/2007 09/29/2009 Postmenopausal atrophic vaginitis 06/08/2007 07/06/2016 documented as of this encounter (statuses as of 07/04/2022) [facility] History of Past illness Narrative* Problem Noted Date Resolved Date Vision loss 04/21/2010 07/06/2016 Overview: Dr. Clemons Incontinence of feces 09/29/2009 03/23/2011 GASTRITIS ANTRAL( W/O Hemorrhage) 05/27/2008 07/06/2016 Urgency of urination 01/10/2008 07/06/2016 Urge incontinence 01/10/2008 09/29/2009 Female stress incontinence 01/10/200809/29 Uterovaginal prolapse, incomplete 06/08/2007 09/29/2009 Postmenopausal atrophic vaginitis 06/08/2007 07/06/2016 documented as of this encounter (statuses as of 07/15/2022) [facility] History of Past illness Narrative* Problem Noted Date Resolved Date Vision loss 04/21/2010 07/06/2016 Overview: Dr. Clemons Incontinence of feces 09/29/2009 03/23/2011 GASTRITIS ANTRAL( W/O Hemorrhage) 05/27/2008 07/06/2016 Urgency of urination 01/10/2008 07/06/2016 Urge incontinence 01/10/2008 09/29/2009 Female stress incontinence 01/10/200809/29 Uterovaginal prolapse, incomplete 06/08/2007 09/29/2009 Postmenopausal atrophic vaginitis 06/08/2007 07/06/2016 documented as of this encounter (statuses as of 07/15/2022) [facility] History of Past illness Narrative* Problem Noted Date Resolved Date Vision loss 04/21/2010 07/06/2016 Overview: Dr. Clemons Incontinence of feces 09/29/2009 03/23/2011 GASTRITIS ANTRAL( W/O Hemorrhage) 05/27/2008 07/06/2016 Urgency of urination 01/10/2008 07/06/2016 Urge incontinence 01/10/2008 09/29/2009 Female stress incontinence 01/10/200809/29 Uterovaginal prolapse, incomplete 06/08/2007 09/29/2009 Postmenopausal atrophic vaginitis 06/08/2007 07/06/2016 documented as of this encounter (statuses as of 08/17/2022) [facility] History of Past illness Narrative* Problem Noted Date Resolved Date Vision loss 04/21/2010 07/06/2016 Overview: Dr. Clemons Incontinence of feces 09/29/2009 03/23/2011 GASTRITIS ANTRAL( W/O Hemorrhage) 05/27/2008 07/06/2016 Urgency of urination 01/10/2008 07/06/2016 Urge incontinence 01/10/2008 09/29/2009 Female stress incontinence 01/10/200809/29 Uterovaginal prolapse, incomplete 06/08/2007 09/29/2009 Postmenopausal atrophic vaginitis 06/08/2007 07/06/2016 documented as of this encounter (statuses as of 09/14/2022) [facility] History of Past illness Narrative* Problem Noted Date Resolved Date Vision loss 04/21/2010 07/06/2016 Overview: Dr. Clemons Incontinence of feces 09/29/2009 03/23/2011 GASTRITIS ANTRAL( W/O Hemorrhage) 05/27/2008 07/06/2016 Urgency of urination 01/10/2008 07/06/2016 Urge incontinence 01/10/2008 09/29/2009 Female stress incontinence 01/10/200809/29 Uterovaginal prolapse, incomplete 06/08/2007 09/29/2009 Postmenopausal atrophic vaginitis 06/08/2007 07/06/2016 documented as of this encounter (statuses as of 12/23/2022) [facility] Diagnosis Pseudophakia- Primary Lens replaced by other means Subjective vision disturbance, bilateral Subjective visual disturbance, unspecified Dry eye syndrome of bilateral lacrimal glands Tear film insufficiency, unspecified Regular astigmatism of both eyes Regular astigmatism [facility] encounter [facility]* Diagnosis Essential hypertension- Primary Unspecified essential hypertension IFG (impaired fasting glucose) Impaired fasting glucose Mixed hyperlipidemia Vitamin D deficiency Unspecified vitamin D deficiency Recurrent UTI Urinary tract infection, site not specified Irritable bowel syndrome with both constipation and diarrhea Acute UTI Urinary tract infection, site not specified documented in this encounter [facility] note* Diagnosis Recurrent UTI- Primary Urinary tract infection, site not specified documented in this encounter [facility] note* Diagnosis Onset Date Resolution Status Constipation acute Fecal smearing acute [facility] Work Phone: evaluation note* Diagnosis Recurrent UTI Urinary tract infection, site not specified documented in this encounter [facility] note* Diagnosis UTI symptoms- Primary Other symptoms involving urinary system documented in this encounter [facility] note* Diagnosis Dysuria- Primary documented in this encounter [facility] note* Diagnosis Acute cystitis without hematuria- Primary Acute cystitis documented in this encounter [facility] note* Diagnosis Onset Date Resolution Status Constipation acute Fecal smearing acute Constipation acute Fecal smearing acute [facility] Diagnosis Primary hypertension- Primary Unspecified essential hypertension Need for shingles vaccine Need for prophylactic vaccination and inoculation against other viral diseases Encounter for immunization Need for other specified prophylactic vaccination against single bacterial disease Mixed hyperlipidemia Irritable bowel syndrome with both constipation and diarrhea IFG (impaired fasting glucose) Impaired fasting glucose documented in this encounter [facility] note* Diagnosis Microcalcifications of the breast- Primary Mammographic microcalcification documented in this encounter [facility] note* Diagnosis Onset Date Resolution Status Constipation chronic Constipation chronic [facility] Work Phone: evaluation note* Diagnosis Microcalcifications of the breast- Primary Mammographic microcalcification documented in this encounter [facility] note* Diagnosis Microcalcifications of the breast- Primary Mammographic microcalcification [facility] Diagnosis Microcalcifications of the breast Mammographic microcalcification [facility] Diagnosis Encounter for screening mammogram for malignant neoplasm of breast Other screening mammogram documented in this encounter [facility] note* Diagnosis Breast cancer screening by mammogram documented in this encounter [facility] note* Diagnosis Primary hypertension- Primary Unspecified essential [...] screening by mammogram [facility] Diagnosis Polyarthritis- Primary Unspecified polyarthropathy or polyarthritis, site unspecified [facility]* Diagnosis Primary hypertension- Primary Unspecified essential [...] vitamin D deficiency [facility] Diagnosis Medicare annual wellness visit, subsequent- Primary Routine general medical examination at a health care facility Primary hypertension Unspecified essential hypertension Primary osteoarthritis involving multiple joints [facility] Primary osteoarthritis involving multiple joints- Primary [facility] Diagnosis Primary hypertension- Primary [...] single bacterial disease [facility] Diagnosis Breast cancer screening by mammogram [facility]* Diagnosis Bilateral hand pain- Primary Pain in limb Primary osteoarthritis involving multiple joints Raynaud's disease without gangrene History of gastric ulcer Personal history of other diseases of digestive system [facility] Diagnosis Bilateral hand pain Pain in limb Primary osteoarthritis involving multiple joints Raynaud's disease without gangrene Shortness of breath Neuropathy Mononeuritis of unspecified site History of gastric ulcer Personal history of other diseases of digestive system [facility] Diagnosis Bilateral hand pain- Primary Pain in limb [facility]* Diagnosis Pain of right hand- Primary Pain in limb [facility] Diagnosis Primary hypertension- Primary Unspecified essential hypertension WALTERS (dyspnea on exertion) Other dyspnea and respiratory abnormality Asymmetric hypertrophy of ventricular septum Heart murmur Undiagnosed cardiac murmurs Elevated uric acid in blood Other abnormal blood chemistry [facility]* Diagnosis Pain of right hand- Primary Pain in limb Long-term use of Plaquenil Encounter for long-term (current) use of other medications Swelling of right middle finger [facility]* Diagnosis High risk medication use- Primary Encounter for long-term (current) use of other medications Dry eye syndrome of bilateral lacrimal glands Tear film insufficiency, unspecified Pseudophakia of both eyes Lens replaced by other means Posterior vitreous detachment of both eyes Vitreous degeneration Prediabetes Other abnormal glucose [facility] Diagnosis Arthritis of finger- Primary Pain of right hand Pain in limb Swelling of right middle finger 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 [facility]* Diagnosis Swelling of right middle finger- Primary Bilateral hand pain Pain in limb Pain of right hand Pain in limb Primary osteoarthritis involving multiple joints Raynaud's disease without gangrene History of gastric ulcer Personal history of other diseases of digestive system [facility] Diagnosis Mixed hyperlipidemia- Primary Primary hypertension Unspecified essential hypertension Asymmetric hypertrophy of ventricular septum Abnormal stress test Other nonspecific abnormal cardiovascular system function study Screening for depression Encounter for screening examination for other mental health and behavioral disorders Primary osteoarthritis involving multiple joints Raynaud's disease without gangrene documented in this encounter [facility] for referral (narrative)* Diagnostic Procedure Only (Routine) - Closed Specialty Diagnoses / Procedures [facility] To [facility] Diagnoses Recurrent UTI Procedures CT FLANK WO IVCON CT ABD & PELVIS W/O CONTRAST Blanca Munoz MD [address] [address] [address] Imaging Referral ID Status Reason Start Date Expiration Date Visits Re quested Visits Authorized [id number] Closed 12/29/2021 01/28/2022 1 1 [facility] for referral (narrative)* Diagnostic Procedure Only (Routine) - Pending Review Specialty Diagnoses / Procedures Referred By Contteresa t Referred To Contact [facility] Diagnoses Microcalcifications of the breast Procedures CESAR DIAGNOSTIC LEFT DIAGNOSTIC MAMMOGRAPHY COMPUTER-AIDED DETCJ UNI [place], Miah P, MD [address] [place] [address] Br [facility] [address] [place] [address] Referral ID Status Reason Start Date Expiration Date Visits Requested Visits Authorized [id number] Pending Review Auto-Generat ed Referral 12/23/2022 01/22/2024 1 1 [facility] for referral (narrative)* Diagnostic Procedure Only (Routine) - Closed Specialty Diagnoses / Procedures Referred By Contac t Referred To Contact [facility] Diagnoses Microcalcifications of the breast Procedures CESAR DIAGNOSTIC LEFT DIAGNOSTIC MAMMOGRAPHY COMPUTER-AIDED DETCJ Miah Chandler MD [address] [place] [address] [facility] [address] [place] [address] Referral ID Status Reason Start Date Expiration Date V isits Requested Visits Authorized [id number] Closed Auto-Generate d Referral 12/23/2022 01/22/2024 1 1 T [facility] for referral (narrative)* Diagnostic Procedure Only (Routine) - Closed Specialty Diagnoses / Procedures Referred By Contac t Referred To Contact [facility] Diagnoses Encounter for screening mammogram for malignant neoplasm of breast Procedures CESAR SCREENING W RIVAS SCREENING BREAST DGTL RIVAS UNI/BILAT ADD ON SCREENING MAMMOGRAPHY BI 2-VIEW BREAST INC CAD Karishma Talbot MD [address] [place] [address] [facility] [address] [place] [address] Referral ID Status Reason Start Date Expiration Date V isits Requested Visits Authorized [id number] Closed Auto-Generate d Referral 12/29/2021 07/10/2022 1 1 [facility] for referral (narrative)* Diagnostic Procedure Only (Routine) - Closed Specialty Diagnoses / Procedures [facility] To [facility] Diagnoses Breast cancer screening by mammogram Procedures CESAR SCREENING W RIVAS SCREENING DIGITAL BREAST TOMOSYNTHESIS BI SCREENING MAMMOGRAPHY BI 2-VIEW BREAST INC CAD Preston Haney MD [address] [place] [address] Br Imaging [address] [place] [address] Referral ID Status Reason Start Date Expiration Date V isits Requested Visits Authorized [id number] Closed Auto-Generate d Referral 07/20/2023 08/18/2024 1 1 [facility] for referral (narrative)[facility] Reason for visit Narrative* Diagnostic Procedure Only (Routine) - Closed Specialty Diagnoses / Procedures Referred By [facility] Referred To Contact CT IMAGING Diagnoses Recurrent UTI Procedures CT FLANK WO IVCON CT ABD & PELVIS W/O CONTRAST Blanca Munoz MD [address] [facility] [address] [place] [address] Ct Imaging Referral ID Status Reason Start Date Expiration Date Visits Re quested Visits Authorized [id number] Closed 12/29/2021 01/28/2022 1 1 [facility] for visit Narrative* Diagnostic Procedure Only (Routine) - Closed Specialty Diagnoses / Procedures [facility] Diagnoses Microcalcifications of the breast Procedures CESAR DIAGNOSTIC LEFT DIAGNOSTIC MAMMOGRAPHY COMPUTER-AIDED DETCJ Miah Chandler MD [address] [place] [address] Br [facility] [address] [place] [address] Referral ID Status Reason Start Date Expiration Date V isits Requested Visits Authorized [id number] Closed Auto-Generate d Referral 12/23/2022 01/22/2024 1 1 [facility] for visit Narrative* Diagnostic Procedure Only (Routine) - Closed Specialty Diagnoses / Procedures [facility] Diagnoses Encounter for screening mammogram for malignant neoplasm of breast Procedures CESAR SCREENING W RIVAS SCREENING BREAST DGTL RIVAS UNI/BILAT ADD ON SCREENING MAMMOGRAPHY BI 2-VIEW BREAST INC CAD Karishma Talbot MD [address] [place] [address] Br Imaging [address] [place] [address] Referral ID Status Reason Start Date Expiration Date V isits Requested Visits Authorized [id number] Closed Auto-Generate d Referral 12/29/2021 07/10/2022 1 1 [facility] for visit Narrative* Diagnostic Procedure Only (Routine) - Closed Specialty Diagnoses / Procedures Referred By Maritza silva Referred To Contact [facility] Diagnoses Breast cancer screening by mammogram Procedures CESAR SCREENING W RIVAS SCREENING DIGITAL BREAST TOMOSYNTHESIS BI SCREENING MAMMOGRAPHY BI 2-VIEW BREAST INC CAD Preston Haney MD [address] [place] [id number] [facility] [address] [place] [address] Referral ID Status Reason Start Date Expiration Date V isits Requested Visits Authorized [id number] Closed Auto-Generate d Referral 07/20/2023 08/18/2024 1 1 [facility] for visit Narrative* Diagnostic Procedure Only (Routine) - Closed Specialty Diagnoses / Procedures Referred By Maritza silva Referred To Contact [facility] Diagnoses Breast cancer screening by mammogram Procedures CESAR SCREENING W RIVAS SCREENING DIGITAL BREAST TOMOSYNTHESIS BI SCREENING MAMMOGRAPHY BI 2-VIEW BREAST INC CAD Preston Haney MD [address] [place] [address] Phone: tel: fax: [facility] [address] [place] [address] Referral ID Status Reason Start Date Expiration Date V isits Requested Visits Authorized [id number] Closed Auto-Generate d Referral 07/20/2024 08/19/2025 1 1 [facility] for visit Narrative* Diagnostic Procedure [...] PA-C [address] [place] [address] Phone: tel: fax: [place] [address] Referral ID Status Reason Start Date Expiration Date V isits Requested Visits Authorized [id number] Closed Auto-Generate d Referral 09/20/2024 10/20/2025 1 1 [facility] Medications Administered Section Active Administered Medications - [...] FoundDocuments on File Type Date Recorded 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 Advance Directive(s) 08/18/2016 1:02 PM Advance Directive(s) 08/16/2016 1:39 PM Advance Directive(s) 04/18/2009 5:30 AM Advance Directive(s) 08/25/2006 12:00 AM Documents on File Type Date Recorded 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 Advance Directive(s) 08/18/2016 1:02 PM Advance Directive(s) 08/16/2016 1:39 PM Advance Directive(s) 04/18/2009 5:30 AM Advance Directive(s) 08/25/2006 12:00 AM Documents on File Type Date Recorded 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 Advance Directive(s) 04/18/2009 5:30 AM Advance Directive(s) 08/25/2006 Documents on File Type Date Recorded 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 Advance Directive(s) 04/18/2009 5:30 AM [...] TO RHEUM/IMMUN DISEASE Preston Haney MD [address] [place] [address] Jessica Madrid [address] [place] [address] Referral ID Status Reason Start Date Expiration Date Visits Requested Visits Authorized [id number] Ref Not Required PCP Requested Referral 12/23/2023 12/19/2024 1 1 Specialty Diagnoses / Procedures Referred By Maritza silva Referred To Contact Rheumatology Diagnoses Primary osteoarthritis involving multiple joints Procedures CONSULT TO RHEUM/IMMUN DISEASE OFFICE/OUTPATIENT [facility] 60 MINUTES Elisabeth Hoff APRN.[employer] [address] [place] [address] Referral ID Status Reason Start Date Expiration Date Visits Requested Visits Authorized [id number] Authorized PCP Requested Referral 07/20/2024 07/20/2025 1 1 Additional Source Comments Source Comments (unrecognize d section and content) In the event this informatio n is protected by the Federal Confidentiality of Alcohol and Drug Abuse Patient Records regulations: The Federal rules restrict any use of the information to criminally investigate or prosecute any alcohol or drug abuse patient.[facility] the event this information is protected by the Federal Confidentiality of Alcohol and Drug Abuse Patient Records regulations: The Federal rules restrict any use of the information to criminally investigate or prosecute any alcohol or drug abuse patient.[facility] the event this information is protected by the Federal Confidentiality of Alcohol and Drug Abuse Patient Records regulations: The Federal rules restrict any use of the information to criminally investigate or prosecute any alcohol or drug abuse patient.[facility] the event this information is protected by the Federal Confidentiality of Alcohol and Drug Abuse Patient Records regulations: The Federal rules restrict any use of the information to criminally investigate or prosecute any alcohol or drug abuse patient.[facility] the event this information is protected by the Federal Confidentiality of Alcohol and Drug Abuse Patient Records regulations: The Federal rules restrict any use of the information to criminally investigate or prosecute any alcohol or drug abuse patient.[facility] the event this information is protected by the Federal Confidentiality of Alcohol and Drug Abuse Patient Records regulations: The Federal rules restrict any use of the information to criminally investigate or prosecute any alcohol or drug abuse patient.[facility] the event this information is protected by the Federal Confidentiality of Alcohol and Drug Abuse Patient Records regulations: The Federal rules restrict any use of the information to criminally investigate or prosecute any alcohol or drug abuse patient.[facility] the event this information is protected by the Federal Confidentiality of Alcohol and Drug Abuse Patient Records regulations: The Federal rules restrict any use of the information to criminally investigate or prosecute any alcohol or drug abuse patient.[facility] the event this information is protected by the Federal Confidentiality of Alcohol and Drug Abuse Patient Records regulations: The Federal rules restrict any use of the information to criminally investigate or prosecute any alcohol or drug abuse patient.Prem[facility] HealthIn the event this information is protected by the Federal Confidentiality of Alcohol and Drug Abuse Patient Records regulations: The Federal rules restrict any use of the information to criminally investigate or prosecute any alcohol or drug abuse patient.Premier HealthIn the event this information is protected by the Federal Confidentiality of Alcohol and Drug Abuse Patient Records regulations: The Federal rules restrict any use of the information to criminally investigate or prosecute any alcohol or drug abuse patient.Premier HealthIn the event this information is protected by the Federal Confidentiality of Alcohol and Drug Abuse Patient Records regulations: The Federal rules restrict any use of the information to criminally investigate or prosecute any alcohol or drug abuse patient.Premier HealthIn the event this information is protected by the Federal Confidentiality of Alcohol and Drug Abuse Patient Records regulations: The Federal rules restrict any use of the information to criminally investigate or prosecute any alcohol or drug abuse patient.Prem[facility] HealthIn the event this information is protected by the Federal Confidentiality of Alcohol and Drug Abuse Patient Records regulations: The Federal rules restrict any use of the information to criminally investigate or prosecute any alcohol or drug abuse patient.Prem[facility] HealthIn the event this information is protected by the Federal Confidentiality of Alcohol and Drug Abuse Patient Records regulations: The Federal rules restrict any use of the information to criminally investigate or prosecute any alcohol or drug abuse patient.Premier HealthIn the event this information is protected by the Federal Confidentiality of Alcohol and Drug Abuse Patient Records regulations: The Federal rules restrict any use of the information to criminally investigate or prosecute any alcohol or drug abuse patient.Prem[facility] HealthIn the event this information is protected by the Federal Confidentiality of Alcohol and Drug Abuse Patient Records regulations: The Federal rules restrict any use of the information to criminally investigate or prosecute any alcohol or drug abuse patient.Premier HealthIn the event this information is protected by the Federal Confidentiality of Alcohol and Drug Abuse Patient Records regulations: The Federal rules restrict any use of the information to criminally investigate or prosecute any alcohol or drug abuse patient.Premier HealthIn the event this information is protected by the Federal Confidentiality of Alcohol and Drug Abuse Patient Records regulations: The Federal rules restrict any use of the information to criminally investigate or prosecute any alcohol or drug abuse patient.Premier HealthIn the event this information is protected by the Federal Confidentiality of Alcohol and Drug Abuse Patient Records regulations: The Federal rules restrict any use of the information to criminally investigate or prosecute any alcohol or drug abuse patient.Premier HealthIn the event this information is protected by the Federal Confidentiality of Alcohol and Drug Abuse Patient Records regulations: The Federal rules restrict any use of the information to criminally investigate or prosecute any alcohol or drug abuse patient.Premier HealthIn the event this information is protected by the Federal Confidentiality of Alcohol and Drug Abuse Patient Records regulations: The Federal rules restrict any use of the information to criminally investigate or prosecute any alcohol or drug abuse patient.Premier HealthIn the event this information is protected by the Federal Confidentiality of Alcohol and Drug Abuse Patient Records regulations: The Federal rules restrict any use of the information to criminally investigate or prosecute any alcohol or drug abuse patient.Premier HealthIn the event this information is protected by the Federal Confidentiality of Alcohol and Drug Abuse Patient Records regulations: The Federal rules restrict any use of the information to criminally investigate or prosecute any alcohol or drug abuse patient.Premier HealthIn the event this information is protected by the Federal Confidentiality of Alcohol and Drug Abuse Patient Records regulations: The Federal rules restrict any use of the information to criminally investigate or prosecute any alcohol or drug abuse patient.Premier HealthIn the event this information is protected by the Federal Confidentiality of Alcohol and Drug Abuse Patient Records regulations: The Federal rules restrict any use of the information to criminally investigate or prosecute any alcohol or drug abuse patient.Premier HealthIn the event this information is protected by the Federal Confidentiality of Alcohol and Drug Abuse Patient Records regulations: The Federal rules restrict any use of the information to criminally investigate or prosecute any alcohol or drug abuse patient.Premier HealthIn the event this information is protected by the Federal Confidentiality of Alcohol and Drug Abuse Patient Records regulations: The Federal rules restrict any use of the information to criminally investigate or prosecute any alcohol or drug abuse patient.[facility] the event this information is protected by the Federal Confidentiality of Alcohol and Drug Abuse Patient Records regulations: The Federal rules restrict any use of the information to criminally investigate or prosecute any alcohol or drug abuse patient.Premier HealthIn the event this information is protected by the Federal Confidentiality of Alcohol and Drug Abuse Patient Records regulations: The Federal rules restrict any use of the information to criminally investigate or prosecute any alcohol or drug abuse patient.Premier HealthIn the event this information is protected by [...] or prosecute any alcohol or drug abuse patient.Premier HealthIn the event this information is protected by the Federal Confidentiality of Alcohol and Drug Abuse Patient Records regulations: The Federal rules restrict any use of the information to criminally investigate or prosecute any alcohol or drug abuse patient.Premier HealthIn the event this information is protected by the Federal Confidentiality of Alcohol and Drug Abuse Patient Records regulations: The Federal rules restrict any use of the information to criminally investigate or prosecute any alcohol or drug abuse patient.Premier HealthIn the event this information is protected by the Federal Confidentiality of Alcohol and Drug Abuse Patient Records regulations: The Federal rules restrict any use of the information to criminally investigate or prosecute any alcohol or drug abuse patient.Premier HealthIn the event this information is protected by the Federal Confidentiality of Alcohol and Drug Abuse Patient Records regulations: The Federal rules restrict any use of the information to criminally investigate or prosecute any alcohol or drug abuse patient.Premier HealthIn the event this information is protected by the Federal Confidentiality of Alcohol and Drug Abuse Patient Records regulations: The Federal rules restrict any use of the information to criminally investigate or prosecute any alcohol or drug abuse patient.Premier HealthIn the event this information is protected by the Federal Confidentiality of Alcohol and Drug Abuse Patient Records regulations: The Federal rules restrict any use of the information to criminally investigate or prosecute any alcohol or drug abuse patient.Premier HealthIn the event this information is protected by the Federal Confidentiality of Alcohol and Drug Abuse Patient Records regulations: The Federal rules restrict any use of the information to criminally investigate or prosecute any alcohol or drug abuse patient.Premier HealthIn the event this information is protected by the Federal Confidentiality of Alcohol and Drug Abuse Patient Records regulations: The Federal rules restrict any use of the information to criminally investigate or prosecute any alcohol or drug abuse patient.Premier HealthIn the event this information is protected by the Federal Confidentiality of Alcohol and Drug Abuse Patient Records regulations: The Federal rules restrict any use of the information to criminally investigate or prosecute any alcohol or drug abuse patient.Premier HealthIn the event this information is protected by the Federal Confidentiality of Alcohol and Drug Abuse Patient Records regulations: The Federal rules restrict any use of the information to criminally investigate or prosecute any alcohol or drug abuse patient.Premier HealthIn the event this information is protected by the Federal Confidentiality of Alcohol and Drug Abuse Patient Records regulations: The Federal rules restrict any use of the information to criminally investigate or prosecute any alcohol or drug abuse patient.Premier HealthIn the event this information is protected by the Federal Confidentiality of Alcohol and Drug Abuse Patient Records regulations: The Federal rules restrict any use of the information to criminally investigate or prosecute any alcohol or drug abuse patient.Premier HealthIn the event this information is protected by the Federal Confidentiality of Alcohol and Drug Abuse Patient Records regulations: The Federal rules restrict any use of the information to criminally investigate or prosecute any alcohol or drug abuse patient.Premier HealthIn the event this information is protected by the Federal Confidentiality of Alcohol and Drug Abuse Patient Records regulations: The Federal rules restrict any use of the information to criminally investigate or prosecute any alcohol or drug abuse patient.Premier HealthIn the event this information is protected by the Federal Confidentiality of Alcohol and Drug Abuse Patient Records regulations: The Federal rules restrict any use of the information to criminally investigate or prosecute any alcohol or drug abuse patient.Premier HealthIn the event this information is protected by the Federal Confidentiality of Alcohol and Drug Abuse Patient Records regulations: The Federal rules restrict any use of the information to criminally investigate or prosecute any alcohol or drug abuse patient.Premier HealthIn the event this information is protected by the Federal Confidentiality of Alcohol and Drug Abuse Patient Records regulations: The Federal rules restrict any use of the information to criminally investigate or prosecute any alcohol or drug abuse patient.Premier HealthIn the event this information is protected by the Federal Confidentiality of Alcohol and Drug Abuse Patient Records regulations: The Federal rules restrict any use of the information to criminally investigate or prosecute any alcohol or drug abuse patient.Premier HealthIn the event this information is protected by the Federal Confidentiality of Alcohol and Drug Abuse Patient Records regulations: The Federal rules restrict any use of the information to criminally investigate or prosecute any alcohol or drug abuse patient.Premier HealthIn the event this information is protected by the Federal Confidentiality of Alcohol and Drug Abuse Patient Records regulations: The Federal rules restrict any use of the information to criminally investigate or prosecute any alcohol or drug abuse patient.Premier HealthIn the event this information is protected by the Federal Confidentiality of Alcohol and Drug Abuse Patient Records regulations: The Federal rules restrict any use of the information to criminally investigate or prosecute any alcohol or drug abuse patient.Premier HealthIn the event this information is protected by the Federal Confidentiality of Alcohol and Drug Abuse Patient Records regulations: The Federal rules restrict any use of the information to criminally investigate or prosecute any alcohol or drug abuse patient.[facility] Reason for Visit (unrecogniz ed section and [...] Labs prior Breast Problem 07/20/2023 Mammogram at [facility] [place] Reason Comments Orders Reason Onset Date Comments Population Health Navigation Outreach 02/15/2024 Kenneth Bob PCSA Reason Comments Medicare Wellness Exam Reason Onset Date Comments Refill Request 07/25/2024 Reason Comments Insurance Authorization Reason Onset Date Comments F/U 6 months Labs prior Breast Problem 07/20/[address] [facility] Reason Comments Request Outside Medical Records Reason Comments Received Outside Medical [facility] Reason Comments Joint Pain Osteoarthritis Specialty Diagnoses / Procedures Referred By Maritza silva Referred To Contact Rheumatology Diagnoses Primary osteoarthritis involving multiple joints Procedures CONSULT TO RHEUM/IMMUN DISEASE OFFICE/OUTPATIENT NEW HIGH MDM 60 MINUTES Elisabeth Hoff APRN.PORTABLE TRACK CREW CHIEF [address] [place] [address] Phone: tel: fax: Referral ID Status Reason Start Date Expiration Date V isits Requested Visits Authorized [id number] Closed PCP Requested Referral 07/20/2024 07/20/2025 1 [...] PA-C [address] [place] [address] Phone: tel: fax: Referral ID Status Reason Start Date Expiration Date V isits Requested Visits Authorized [id number] Closed PCP Requested Referral 10/11/2024 10/11/2025 1 1 Reason Comments New Pain Specialty Diagnoses / Procedures Referred By Contac t Referred To Contact Orthopedics Diagnoses Pain of right hand Swelling of right middle finger Procedures CONSULT TO ORTHOPAEDICS OFFICE/OUTPATIENT NEW HIGH MDM 60 MINUTES Lexis Roca PA-C [address] [place] [address] Phone: tel: fax: Referral ID Status Reason Start Date Expiration Date V isits Requested Visits Authorized [id number] Closed PCP Requested Referral 10/11/2024 10/11/2025 1 1 Reason Comments Follow Up Care Teams (unrecognized sec tion and content) Shell Machine Operator Relationship Specialty Start Date End Date Preston Haney MD [address] [place] [address] PCP - General Internal Medicine 11/08/16 Shell Machine Operator Relationship Specialty Start Date End Date Preston Haney MD [address] [place] [address] PCP - General Internal Medicine 11/08/16 Shell Machine Operator Relationship Specialty Start Date End Date Preston Haney MD [address] [place] [address] PCP - General Internal Medicine 11/08/16 Shell Machine Operator Relationship Specialty Start Date End Date Preston Haney MD [address] [place] [address] PCP - General Internal Medicine 11/08/16 Shell Machine Operator Relationship Specialty Start Date End Date Preston Haney MD [address] [place] [address] PCP - General Internal Medicine 11/08/16 Shell Machine Operator Relationship Specialty Start Date End Date Preston Haney MD [address] [place] [address] PCP - General Internal Medicine 11/08/16 Shell Machine Operator Relationship Specialty Start Date End Date Preston Haney MD [address] [place] [address] PCP - General Internal Medicine 11/08/16 Shell Machine Operator Relationship Specialty Start Date End Date Preston Haney MD [address] [place] [address] PCP - General Internal Medicine 11/08/16 Shell Machine Operator Relationship Specialty Start Date End Date Preston Haney MD [address] [place] [address] PCP - General Internal Medicine 11/08/16 Shell Machine Operator Relationship Specialty Start Date End Date Preston Haney MD [address] [place] [address] PCP - General Internal Medicine 11/08/16 Shell Machine Operator Relationship Specialty Start Date End Date Preston Haney MD [address] [place] [address] PCP - General Internal Medicine 11/08/16 Team Status: Active Member Role Status Dates Dr. Parvez Roman MD Family Provider Active Dr. Preston Haney MD Primary Care Provider Active Team Status: Inactive Member Role Status Dates Dr. Preston Haney MD Primary Care Provider, Referr ing Provider Active Janeth Lopez DOOR HANGER, DOOR HANGER-C Attending Provider Active Team Status: Inactive Member Role Status Dates Dr. Preston Haney MD Primary Care Provider Active Dr. Miah Mart MD Attending Provider, Referring Provider Active Shell Machine Operator Relationship Specialty Start Date End Date Preston Haney MD [address] [place] [address] PCP - General Internal Medicine 11/08/16 Shell Machine Operator Relationship Specialty Start Date End Date Preston Haney MD [address] [place] [address] PCP - General Internal Medicine 11/08/16 Shell Machine Operator Relationship Specialty Start Date End Date Preston Haney MD [address] [place] [address] PCP - General Internal Medicine 11/08/16 Shell Machine Operator Relationship Specialty Start Date End Date Preston Haney MD [address] [place] [address] PCP - General Internal Medicine 11/08/16 Shell Machine Operator Relationship Specialty Start Date End Date Preston Haney MD [address] [place] [address] PCP - General Internal Medicine 11/08/16 Shell Machine Operator Relationship Specialty Start Date End Date Preston Haney MD [address] [place] [address] PCP - General Internal Medicine 11/08/16 Shell Machine Operator Relationship Specialty Start Date End Date Preston Haney MD [address] [place] [address] PCP - General Internal Medicine 11/08/16 Shell Machine Operator Relationship Specialty Start Date End Date Preston Haney MD [address] [place] [address] PCP - General Internal Medicine 11/08/16 Shell Machine Operator Relationship Specialty Start Date End Date Preston Haney MD [address] [place] [address] PCP - General Internal Medicine 11/08/16 Shell Machine Operator Relationship Specialty Start Date End Date Preston Haney MD [address] [place] [address] PCP - General Internal Medicine 11/08/16 Shell Machine Operator Relationship Specialty Start Date End Date Preston Haney MD [address] [place] [address] PCP - General Internal Medicine 11/08/16 Elisabeth Hoff, TRAM DRIVER.PORTABLE TRACK CREW CHIEF [address] [place] [address] Carving Machine Operator Internal Medicine 06/18/24 Byron Sutton TRAM DRIVER.MUD GRINDER [address] [place] [address] Carving Machine Operator Internal Medicine 06/18/24 Shell Machine Operator Relationship Specialty Start Date End Date Preston Haney MD [address] [place] [address] PCP - General Internal Medicine 11/08/16 Elisabeth Hoff, TRAM DRIVER.PORTABLE TRACK CREW CHIEF [address] [place] [address] Carving Machine Operator Internal Medicine 06/18/24 Byron Sutton APRN.MUD GRINDER [address] [place] [address] Carving Machine Operator Internal Medicine 06/18/24 Shell Machine Operator Relationship Specialty Start Date End Date Preston Haney MD [address] [place] [address] PCP - General Internal Medicine 11/08/16 Elisabeth Hoff APRN.PORTABLE TRACK CREW CHIEF [address] [place] [address] Carving Machine Operator Internal Medicine 06/18/24 Byron Sutton APRN.MUD GRINDER [address] [place] [address] Carving Machine Operator Internal Medicine 06/18/24 Shell Machine Operator Relationship Specialty Start Date End Date Preston Haney MD [address] [place] [address] PCP - General Internal Medicine 11/08/16 Elisabeth Hoff APRN.PORTABLE TRACK CREW CHIEF [address] [place] [address] Carving Machine Operator Internal Medicine 06/18/24 Byron Sutton APRN.MUD GRINDER [address] [place] [address] Carving Machine Operator Internal Medicine 06/18/24 Shell Machine Operator Relationship Specialty Start Date End Date Preston Haney MD [address] [place] [address] PCP - General Internal Medicine 11/08/16 Elisabeth Hoff TRAM DRIVER.PORTABLE TRACK CREW CHIEF [address] [place] [address] Carving Machine Operator Internal Medicine 06/18/24 Byron Sutton APRN.MUD GRINDER [address] [place] [address] Carving Machine Operator Internal Medicine 06/18/24 Shell Machine Operator Relationship Specialty Start Date End Date Preston Haney MD [address] [place] [address] PCP - General Internal Medicine 11/08/16 Elisabeth Hoff, TRAM DRIVER.PORTABLE TRACK CREW CHIEF [address] [place] [address] Carving Machine Operator Internal Medicine 06/18/24 Byron Sutton TRAM DRIVER.MUD GRINDER [address] [place] [address] [facility] Internal Medicine 06/18/24 Shell Machine Operator Relationship Specialty Start Date End Date Preston Haney MD [address] [place] [address] PCP - General Internal Medicine 11/08/16 Elisabeth Hoff, TRAM DRIVER.PORTABLE TRACK CREW CHIEF [address] [place] [address] Carving Machine Operator Internal Medicine 06/18/24 Byron Sutton, TRAM DRIVER.MUD GRINDER [address] [place] [address] [facility] Internal Medicine 06/18/24 Shell Machine Operator Relationship Specialty Start Date End Date Preston Haney MD [address] [place] [address] PCP - General Internal Medicine 11/08/16 Elisabeth Hoff, TRAM DRIVER.PORTABLE TRACK CREW CHIEF [address] [place] [address] Carving Machine Operator Internal Medicine 06/18/24 Byron Sutton TRAM DRIVER.MUD GRINDER [address] [facility] [place] [address] [facility] Internal Medicine 06/18/24 Shell Machine Operator Relationship Specialty Start Date End Date Preston Haney MD [address] [facility] [place] [address] PCP - General Internal Medicine 11/08/16 Elisabeth Hoff, TRAM DRIVER.PORTABLE TRACK CREW CHIEF [address] [facility] [place] [address] [facility] Internal Medicine 06/18/24 Byron Sutton TRAM DRIVER.MUD GRINDER [address] [facility] [place] [address] [facility] Internal Medicine 06/18/24 Shell Machine Operator Relationship Specialty Start Date End Date Preston Haney MD [address] [facility] [place] [address] PCP - General Internal Medicine 11/08/16 Elisabeth Hoff, TRAM DRIVER.PORTABLE TRACK CREW CHIEF [address] [facility] [place] [address] [facility] Internal Medicine 06/18/24 Byron Sutton TRAM DRIVER.MUD GRINDER [address] [facility] [place] [address] [facility] Internal Medicine 06/18/24 Shell Machine Operator Relationship Specialty Start Date End Date Preston Haney MD [address] [facility] [place] [address] PCP - General Internal Medicine 11/08/16 Elisabeth Hoff, TRAM DRIVER.PORTABLE TRACK CREW CHIEF [address] [place] [address] Carving Machine Operator Internal Medicine 06/18/24 Byron Sutton APRN.MUD GRINDER [address] [place] [address] Carving Machine Operator Internal Medicine 06/18/24 Shell Machine Operator Relationship Specialty Start Date End Date Preston Haney MD [address] [place] [address] PCP - General Internal Medicine 11/08/16 Elisabeth Hoff, TRAM DRIVER.PORTABLE TRACK CREW CHIEF [address] [place] [address] Carving Machine Operator Internal Medicine 06/18/24 Byron Sutton APRN.MUD GRINDER [address] [place] [address] Carving Machine Operator Internal Medicine 06/18/24 Shell Machine Operator Relationship Specialty Start Date End Date Preston Haney MD [address] [place] [address] PCP - General Internal Medicine 11/08/16 Elisabeth Hoff, TRAM DRIVER.PORTABLE TRACK CREW CHIEF [address] [place] [address] Carving Machine Operator Internal Medicine 06/18/24 Byron Sutton APRN.MUD GRINDER [address] [place] [address] Carving Machine Operator Internal Medicine 06/18/24 Shell Machine Operator Relationship Specialty Start Date End Date Preston Haney MD [address] [place] [address] PCP - General Internal Medicine 11/08/16 Elisabeth Hoff, TRAM DRIVER.PORTABLE TRACK CREW CHIEF [address] [place] [address] Carving Machine Operator Internal Medicine 06/18/24 Byron Sutton APRN.MUD GRINDER [address] [facility] [place] [address] Carving Machine Operator Internal Medicine 10/02/24 Shell Machine Operator Relationship Specialty Start Date End Date Preston Haney MD [address] [place] [address] PCP - General Internal Medicine 11/08/16 Elisabeth Hoff, TRAM DRIVER.PORTABLE TRACK CREW CHIEF [address] [place] [id number] Carving Machine Operator Internal Medicine 06/18/24 Byron Sutton APRN.MUD GRINDER [address] [place] [address] Carving Machine Operator Internal Medicine 10/02/24 Shell Machine Operator Relationship Specialty Start Date End Date Preston Haney MD [address] [place] [address] PCP - General Internal Medicine 11/08/16 Elisabeth Hoff, TRAM DRIVER.PORTABLE TRACK CREW CHIEF [address] [facility] [place] [address] Carving Machine Operator Internal Medicine 06/18/24 Byron Sutton TRAM DRIVER.MUD GRINDER [address] [place] [address] [facility] Internal Medicine 10/02/24 Shell Machine Operator Relationship Specialty Start Date End Date Preston Haney MD [address] [place] [address] PCP - General Internal Medicine 11/08/16 Elisabeth Hoff, TRAM DRIVER.PORTABLE TRACK CREW CHIEF [address] [place] [address] [facility] Internal Medicine 06/18/24 Byron Sutton TRAM DRIVER.MUD GRINDER [address] [place] [address] [facility] Internal Medicine 10/02/24 Shell Machine Operator Relationship Specialty Start Date End Date Preston Haney MD [address] [place] [address] PCP - General Internal Medicine 11/08/16 Elisabeth Hoff, TRAM DRIVER.PORTABLE TRACK CREW CHIEF [address] [place] [address] [facility] Internal Medicine 06/18/24 Byron Sutton, TRAM DRIVER.MUD GRINDER [address] [place] [address] [facility] Internal Medicine 10/02/24 Samuel Curiel [facility] [place] [address] Ophthalmology 11/26/24 Shell Machine Operator Relationship Specialty Start Date End Date Preston Haney MD [address] [place] [address] PCP - General Internal Medicine 11/08/16 Elisabeth Hoff, TRAM DRIVER.PORTABLE TRACK CREW CHIEF [address] [place] [address] Carving Machine Operator Internal Medicine 06/18/24 11/27/24 Byron Sutton, TRAM DRIVER.MUD GRINDER [address] [place] [address] Carving Machine Operator Internal Medicine 10/02/24 Samuel Curiel [address] [place] [address] Ophthalmology 11/26/24 Elisabeth Hoff, TRAM DRIVER.PORTABLE TRACK CREW CHIEF [address] [place] [address] Carving Machine Operator Internal Medicine 11/28/24 Shell Machine Operator Relationship Specialty Start Date End Date Preston Haney MD [address] [place] [address] PCP - General Internal Medicine 11/08/16 Elisabeth Hoff, TRAM DRIVER.PORTABLE TRACK CREW CHIEF [address] [place] [address] Carving Machine Operator Internal Medicine 06/18/24 11/27/24 Byron Sutton, TRAM DRIVER.MUD GRINDER [address] [place] [address] Carving Machine Operator Internal Medicine 10/02/24 Team Status: Active Member [...] Provider Active Start : January 03, 2025 Shell Machine Operator Relationship Specialty Start Date End Date Preston Haney MD [address] [place] [address] PCP - General Internal Medicine 11/08/16 Byron Sutton TRAM DRIVER.MUD GRINDER [address] [place] [address] Carving Machine Operator Internal Medicine 10/02/24 Samuel Curiel [address] [place] [address] Ophthalmology 11/26/24 Elisabeth Hoff APRN.PORTABLE TRACK CREW CHIEF [address] [place] [address] Carving Machine Operator Internal Medicine 11/28/24 Shell Machine Operator Relationship Specialty Start Date End Date Preston Haney MD [address] [place] [address] PCP - General Internal Medicine 11/08/16 Byron Sutton TRAM DRIVER.MUD GRINDER [address] [place] [address] Carving Machine Operator Internal Medicine 10/02/24 Samuel Curiel [address] [place] [address] Ophthalmology 11/26/24 Elisabeth Hoff, TRAM DRIVER.PORTABLE TRACK CREW CHIEF [address] [place] [address] [facility] Internal Medicine 11/28/24 Shell Machine Operator Relationship Specialty Start Date End Date Preston Haney MD [address] [place] [address] PCP - General Internal Medicine 11/08/16 Byron Sutton, TRAM DRIVER.MUD GRINDER [address] [place] [address] Carving Machine Operator Internal Medicine 10/02/24 Samuel Curiel [address] [place], [place] [address] Ophthalmology 11/26/24 Elisabeth Hoff, TRAM DRIVER.PORTABLE TRACK CREW CHIEF [address] [place] [address] [facility] Internal Medicine 11/28/24 Goals (unrecognized section and content) Goals may be documented in a n alternate sectionGoals may be documented in an alternate sectionGoals may be documented in an alternate sectionGoals may be documented in an alternate section INFORMATION SOURCE (unrecogn ized section and content) DATE CREATED AUTHOR 06/12/2022 [facility] DATE CREATED AUTHOR 'S ORGANIZ ATION 01/17/2025 [facility] DATE CREATED AUTHOR 'S ORGANIZ ATION 01/20/2025 [facility] FOR RECORDS PERTAINING TO PATIENTS WHO [...] BE BASED ON THE PRIMARY CLINICAL RECORDS. [facility]. provides no warranty or guarantee of the accuracy or completeness of information in this document.
--- NOTE | 2025-02-18 09:46 | CL.D_ITS ---
Patient Name: AVA DONALDSON Study Date: 01/22/2025 Performing: Hubert Pereira MD Ht: 62.99 inches 160 cm : 1940 Wt: 158.73 lbs 72 kg Age: 84 Gender: female BSA: 1.75 PROCEDURE(S) PERFORMED DC02-(21488)LHC/COR CLINICAL PROFILE AND INDICATIONS Indications: Suspected CAD Heart Failure: None Stress/Imaging Date: 01/03/25 CAD Presentations: Other: sob CONCLUSIONS Non obstructive coronary arteries RECOMMENDATIONS Medical therapy DESCRIPTION OF PROCEDURE The patient arrived to the procedure lab. The risks and benefits of the procedure as well as a full description of our services here and current unavailability of surgical backup were fully explained to the patient and/or their significant other prior to the catheterization. The Timeout was completed, verifying the correct patient and procedure. The patient's procedural site was prepped and draped in the usual fashion. Local anesthetic was given subcutaneously to right radial region with Lidocaine 2%. Using a modified Seldinger technique, arterial access was obtained via the right radial artery, a 6Fr sheath was inserted. Left Coronary Artery selective angiography was performed in multiple views using a 5 Fr. 4.0 [place] catheter. Right Coronary Artery selective angiography was then performed in multiple views using a 5 Fr. 4.0 [place] catheter.The arterial sheath was pulled and a TR Band was applied for hemostasis. 10cc air CORONARY ANGIOGRAPHY DOMINANCE: Right Dominant LEFT HEART ASSESSMENT Left Ventricular Ejection Fraction: by Echo 55 % Normal LV wall motion Normal Left Ventricular systolic function LEFT MAIN: Angiographically normal LEFT ANTERIOR DESCENDING ARTERY: Mild luminal irregularities CIRCUMFLEX ARTERY: Angiographically normal RIGHT CORONARY ARTERY: No significant disease noted VALVE FINDINGS: Aortic Valve Stenosis - mild COMPLICATIONS No Complications PROCEDURE MEDICATIONS Versed 1 mg IV Fentanyl 25 mcg IV Versed 1 mg IV Oxygen: 2 L/min via nasal cannula Aspirin (325mg) 1 Tabs PO @ 01/22/2025 07:31:08 Heparin given IA 01/22/2025 08:07:04 Verapamil 2.5mg, Ntg 100mcgs, 3000 units of Heparin given IA 01/22/2025 08:07:04 SUMMARY OF HEMODYNAMIC DATA Time AIR REST ECG 07:28:18 AO 151/75 (105) SA 08:13:30 Signed By Hubert Pereira MD On 01/22/2025 10:16:59 Signed By Hubert Pereira MD On 01/22/2025 08:40:49 Hubert Pereira MD
--- NOTE | 2025-02-18 09:46 | CL.D_ITS ---
Patient Name: AVA DONALDSON Study Date: 01/22/2025 Performing: Hubert Pereira MD Ht: 62.99 inches 160 cm : 1940 Wt: 158.73 lbs 72 kg Age: 84 Gender: female BSA: 1.75 PROCEDURE(S) PERFORMED DC02-([id number])LHC/COR CLINICAL PROFILE AND INDICATIONS Indications: Suspected CAD Heart Failure: None Stress/Imaging Date: 01/03/25 CAD Presentations: Other: sob CONCLUSIONS Non obstructive coronary arteries RECOMMENDATIONS Medical therapy DESCRIPTION OF PROCEDURE The patient arrived to the procedure lab. The risks and benefits of the procedure as well as a full description of our services here and current unavailability of surgical backup were fully explained to the patient and/or their significant other prior to the catheterization. The Timeout was completed, verifying the correct patient and procedure. The patient's procedural site was prepped and draped in the usual fashion. Local anesthetic was given subcutaneously to right radial region with Lidocaine 2%. Using a modified Seldinger technique, arterial access was obtained via the right radial artery, a 6Fr sheath was inserted. Left Coronary Artery selective angiography was performed in multiple views using a 5 Fr. 4.0 [place] catheter. Right Coronary Artery selective angiography was then performed in multiple views using a 5 Fr. 4.0 [place] catheter.The arterial sheath was pulled and a TR Band was applied for hemostasis. 10cc air CORONARY ANGIOGRAPHY DOMINANCE: Right Dominant LEFT HEART ASSESSMENT Left Ventricular Ejection Fraction: by Echo 55 % Normal LV wall motion Normal Left Ventricular systolic function LEFT MAIN: Angiographically normal LEFT ANTERIOR DESCENDING ARTERY: Mild luminal irregularities CIRCUMFLEX ARTERY: Angiographically normal RIGHT CORONARY ARTERY: No significant disease noted VALVE FINDINGS: Aortic Valve Stenosis - mild COMPLICATIONS No Complications PROCEDURE MEDICATIONS Versed 1 mg IV Fentanyl 25 mcg IV Versed 1 mg IV Oxygen: 2 L/min via nasal cannula Aspirin (325mg) 1 Tabs PO @ 01/22/2025 07:31:08 Heparin given IA 01/22/2025 08:07:04 Verapamil 2.5mg, Ntg 100mcgs, 3000 units of Heparin given IA 01/22/2025 08:07:04 SUMMARY OF HEMODYNAMIC DATA Time AIR REST ECG 07:28:18 AO 151/75 (105) SA 08:13:30 Signed By Hubert Pereira MD On 01/22/2025 10:16:59 Signed By Hubert Pereira MD On 01/22/2025 08:40:49 Hubert Pereira MD
== END 2025-01-22 10:20 | disposition home or self-care (01) ==
PROVIDERS: PCP Internal Medicine; Referring Provider Internal Medicine Cardiovascular Disease; Visit Provider Internal Medicine Cardiovascular Disease
DX: I25.10 Atherosclerotic heart disease of native coronary artery without angina pectoris (principal); R94.39 Abnormal result of other cardiovascular function study; R06.02 Shortness of breath; I10 Essential (primary) hypertension; E78.5 Hyperlipidemia, unspecified; K21.9 Gastro-esophageal reflux disease without esophagitis; Z79.899 Other long term (current) drug therapy
CPT/HCPCS: 36415; 71046; 80048; 85025; 93454; 93458; 99152; 99153; Q9967; C1769; C1894

== ENCOUNTER 2025-05-14 10:00 | Outpatient (RCR) | payer MEDICARE, SELFPAY ==
--- NOTE | 2025-04-11 13:09 | HP.OTEVAL_ITS ---
Patient's Visit Information Visit Information Visit Information: AVA DONALDSON is a 84 year old F, referred to Occupational Therapy by Dr. Tino Chen MD, with a diagnosis of R hand OA. Date of Evaluation: 04/11/25 Occupational Therapist: Светлана Delarosa Subjective Subjective: This 84 year old female arrives with dx of primary OA of R hand. Order from Dr Chen for strengthening edema reduction. Pt states started noticing pain and limitations 6-7 years ago. states since approx a year ago started getting so bad she wanted to do something about. limitations and pain started impacting L hand as well with recent years. Pt is R hand dominant. Pt states she has not been able to make full fist for a few years. R hand MF does have lump that formed at PIP joint Dr Chen told pt only way to know is by performing surgery-- pt not receptive to surgery at this time would like to try conservative management fist. 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 Pain R hand: Current Pain Intensity: 0 Pain Intensity Range: 4 Objective Objective/Observation: pt arrives hands swollen at PIP and DIP joints with nodes and slight UD noted at MPs does demonstrate zig zag deformity at thumb ROM MP: R 35 L 40 IP: R 35 L 35 Opposition: wfl ROM Comments: R hand MF is 2 cm from palm R hand IF MP 70 PIP 90 DIP 65 R hand MP 65 PIP -30/80 DIP 80 R hand RF MP 60 PIP 75 DIP 60 R hand LF MP 90 PIP 95 DIP 55 L hand IF 55 PIP 100 DIP 45 L hand MF MP 70 PIP 95 DIP 50 L hand RF MP 75 PIP 100 DIP 40 L hand LF MP 80 PIP 100 DIP 80 Strength Information Security Consultant: R 20# L 30# Lateral Pinch: R 13# L 15# Tripod Pinch: R 5# L 8# Edema PIP: R MF 8.5 cm L 7.5 cm Proximal Phalanx: R 19.5 cm L 18.5 cm Sensation Sensation Comments: numbness and tingling when cold due to raynauds Quick DASH-Disab of Arm,Shoulder& Hand Quick DASH Score: 43.1800 Goals Goal:: pt will improve R hand marble finisher strength by 10# or more for improved I in opening of containers and day to day functional tasks pt will improve R lateral and tripod pinch by 2# or more for I in opening of co ntainers and day to day functional tasks pt will improve L hand strength by 5# or more for I in management of containers/ packages and day to day functional tasks pt will improve L hand lateral and tripod pinch by 2# or more for fine motor tasks and management of containers Goal:: pt will demonstrate the ability to make full composite fist with R hand for I in functional tasks Goal:: pt will be able to verbalize x2 techniques for management associated with arthritis of hands Goal:: pt will verbalize/ demonstrate 100% accuracy in carryover of proper joint protection and positioning during daily tasks Goal:: pt will improve quick dash score by 10 points (43.18) or more for improved functional use of B hands Rehabilitation General Assessment: This 84 year old female arrives with dx of hand OA pt demonstrates impairments in digit ROM, swelling of joints, pain, decreased marble finisher as well as pinch strength and impaired ability to utilize hand during day to day functional tasks. Physician requesting pt seen for edema as well as strengthening management. pt would benefit from OT services 1-2x a week for 4-6 weeks Rehabilitation Potential: Good Anticipated Interventions Anticipated Interventions: A/AAROM/PROM, Strengthening, Edema Control, Modalities, Orthoses, Joint Protection/Energy Conservation, Fine Motor Coord/Rafael, Education re Diagnosis and Home Program Visit Plan Frequency: 1-2x /Week Duration: 1 Week General Plan: AROM/AAROM/PROM strengthening joint protection / positioning TEXT: Thank you for the opportunity to evaluate your patient. For Medicare and Medicare HMO plans, please review the plan of care and approve it. It will need to be FAXED BACK to us at [phone] for Medicare purposes. Please let me know if there are questions or concerns regarding this plan of care. Physician Signature: Date:
--- NOTE | 2025-05-14 11:08 | HP.OTDCSUM_ITS ---
Discharge Summary D/C Summary: It has been my pleasure to treat AVA DONALDSON under orders from Dr. Tino Chen MD, for the diagnosis of R hand OA for a total of 5 visit(s). Please see the following information for a summary of their discharge status. Overall Improvement % Improvement: 35 Objective Objective/Function: pt has been progressing with pain management ROM and strengthening throughout POC. slight progress noted in RUE strength see below for measurements. pt does continue to have difficulty with making composite fist as result of bulk joint especially MF R hand. ed provided on continued exercises to tolerance for progressive strengthening pt in in agreeance discharge this date R hand 22# L hand 30# lateral pinch R 13# L 15# tripod pinch R 8# L 8# Goals Patient Goals: Regain Strength, Decrease Pain, Decrease Swelling/Stiffness, Improve Fine Motor Skills, Use Hand/Wrist/Arm Normally Again, Increase ROM, Be More Independent in ADLS, Resume Former Household Responsibilities (Cooking,Cleaning,Yard, etc.) and Resume Hobbies Goal:: pt will improve R hand store team leader strength by 10# or more for improved I in opening of containers and day to day functional tasks 05/14/25: R 22# L 30# not met pt will improve R lateral and tripod pinch by 2# or more for I in opening of containers and day to day functional tasks 05/14/25 not met pt will improve L hand strength by 5# or more for I in management of containers/ packages and day to day functional tasks 05/14/25: not met pt will improve L hand lateral and tripod pinch by 2# or more for fine motor tasks and management of containers 05/14/25: not met Goal:: pt will demonstrate the ability to make full composite fist with R hand for I in functional tasks is 4 cm from MF to palm R hand not met L MF 1 cm from palm Goal:: pt will be able to verbalize x2 techniques for management associated with arthritis of hands goal met no repetitive movements and use of heat as needed Goal:: pt will verbalize/ demonstrate 100% accuracy in carryover of proper joint protection and positioning during daily tasks goal met Goal:: pt will improve quick dash score by 10 points (43.18) or more for improved functional use of B hands goal met now 29.54 D/C Information Discharge Comments: This 84 year old female seen by OT for OA of B hands. Pt has been provided with recommendations in compression glove as well as bracing. ed and training on modality incorporation for pain management as well as gentle exercises to perform at home. pt plan is to continue exercises for gentle strengthening and disvcharge at this time. d/c sentence: If there are questions or concerns regarding this patient's occupational therapy, please fell free to call me at [phone]. Thank you for the referral of this patient. Sincerely, Светлана Delarosa
== END 2025-05-14 19:00 | disposition home or self-care (01) ==
LOC: OT 10:00
PROVIDERS: Referring Provider Orthopaedic Surgery; Visit Provider Orthopaedic Surgery
DX: M19.041 Primary osteoarthritis, right hand (principal)
CPT/HCPCS: 97035; 97110; 97140; 97166; 97530